=== PATIENT | male | born 1965 | race Caucasian/White ===

== ENCOUNTER 2017-04-30 15:31 | Inpatient (IN) | payer OTHER ==
[~2017-04-30] VITALS: Ht 175.3 cm; Wt 103.2 kg
[~2017-04-30 15:31] MED LIST: ATOR20TA66; AZIT250T81 PO; BUDE10.2 IH; CEPH500C PO; GEMF600T3; HYDR-3583 PO; HYDR-3812 PO; HYDR-3816 PO; HYDR-757 PO; HYDR1TAB8 OP; LIRA0.6P3 SQ; LISI-552; METF1000 PO; METO-352 PO; MULT-974 PO; ONDA8TAB13 PO; PENI500T PO; PHEN-639 PO; PNT40TEC PO; POTA99TA15 PO; PRD20T PO; PRED20TA PO; TAMS0.4C98 PO
[2017-04-30] MEDS ORDERED: NS IV 1000 ML 1,000 ML IV ONE (16:24)
[2017-04-30] MEDS ORDERED: FAMOTIDINE 20MG/2ML IV (PEPCID) IV STA (16:24)
[2017-04-30 16:25] LABS: BASOPHILS % (AUTO) 0 % (0-10); EOSINOPHILS # (AUTO) 0.2 10^3/uL (0.0-0.3); EOSINOPHILS % (AUTO) 1 % (0-10); LYMPHOCYTES # (AUTO) 2.1 X 10^3 (1.0-4.0); LYMPHOCYTES % (AUTO) 15 % (12-44); MEAN CORPUSCULAR HEMOGLOBIN 27 PG (25-34); MEAN CORPUSCULAR HGB CONC 33 G/DL (32-36); MEAN CORPUSCULAR VOLUME 81 FL (80-99); MEAN PLATELET VOLUME 10.4 FL (7.4-10.4); MONOCYTES # (AUTO) 1.1 X 10^3 (0.0-1.0); MONOCYTES % (AUTO) 8 % (0-12); NEUTROPHILS # (AUTO) 10.6 X 10^3 (1.8-7.8); NEUTROPHILS % (AUTO) 76 % (42-75); PLATELET COUNT 364 10^3/uL (130-400); RED BLOOD COUNT 5.48 10^6/uL (4.35-5.85); RED CELL DISTRIBUTION WIDTH 14.1 % (10.0-14.5); WHITE BLOOD COUNT 13.9 10^3/uL (4.3-11.0)
--- NOTE | 2017-04-30 16:26 | ED Chest Pain ---
General Chief Complaint: Chest Pain Stated Complaint: CP/SOB Nursing Triage Note: Pt c/o CP and SOA since 04/28. Pt reports he had a ekg monitor tech placed in November due to a-fib. Nursing Sepsis Screen: No Definite Risk Source: patient Exam Limitations: no limitations History of Present Illness Time seen by provider: 16:15 Initial Comments Here with report of central chest pain that radiates to the left shoulder. This is been going on for the last 48 hours in varying intensity. Worse this afternoon. Reports that he feels some nausea and has had a little diarrhea. Denies sweating or breathing problems. Timing/Duration: 1-2 days Severity/Quality: moderate, aching Location: central Radiation: shoulders Activities at Onset: none Prior CP/Workup: stress test Modifying Factors: improves with rest ASA po STREETCAR OPERATOR: No NTG SL STREETCAR OPERATOR: No Associated Symptoms: No abdominal pain, No back pain, No diaphoresis, heartburn , nausea/vomiting, No shortness of breath Allergies and Home Medications Allergies Coded Allergies: Bee Pollen (Unverified Allergy, Mild, 12/29/09) Home Medications Atorvastatin Calcium 20 Mg Tablet, #30 (Reported) Budesonide/Formoterol Fumarate 10.2 Gm Hfa.aer.ad, #10 (Reported) Cephalexin 500 Mg Capsule, 500 MG PO TID, #21 Ref 0 Prescribed by: EDNA ALVARADO on 08/18/16 1618 Gemfibrozil 600 Mg Tablet, #60 (Reported) Hydrocodone/Acetaminophen 1 Each Tablet, 1 EACH PO Q4H PRN for PAIN, #30 Ref 0 Prescribed by: EDNA ALVARADO on 08/18/16 1618 Liraglutide 0.6 Mg/0.1 Ml Pen.injctr, 1.8 MG SQ DAILY, (Reported) Lisinopril 20 Mg Tablet, #30 (Reported) Metformin HCl 1,000 Mg Tablet, #120 (Reported) Metoprolol Succinate 50 Mg Tab.er.24h, 50 MG PO DAILY, #30 Prescribed by: CLYDE MENENDEZ on 08/03/16 204 Ondansetron 8 Mg Tab.rapdis, 8 MG PO Q6H PRN for NAUSEA, #10 Ref 0 Prescribed by: EDNA ALVARADO on 08/18/16 1618 Phenazopyridine HCl 100 Mg Tablet, 100 MG PO Q8H PRN for PAIN, #14 Ref 1 Prescribed by: EDNA ALVARADO on 08/18/16 1618 Tamsulosin HCl 0.4 Mg Cap, 0.4 MG PO DAILY, #10 Ref 0 Prescribed by: EDNA ALVARADO on 08/18/16 1618 Review of Systems Constitutional: see HPI, No chills, No fever EENTM: No Symptoms Reported Respiratory: No Symptoms Reported, Denies Cough, Denies Shortness of Air Cardiovascular: Chest Pain, Denies Edema, Denies Irregular Heart Rate, Palpitations Gastrointestinal: Denies Abdominal Pain, Diarrhea, Nausea, Vomiting Genitourinary: No Symptoms Reported Musculoskeletal: no symptoms reported Skin: no symptoms reported Psychiatric/Neurological: No Symptoms Reported All Other Systems Reviewed Negative Unless Noted: Yes Past Uthdmgq-Zjhcza-Zjygqj Hx Patient Social History Alcohol Use: Denies Use Recreational Drug Use: No Smoking Status: Current Everyday Smoker Type Used: Cigarettes Recent Infectious Disease Expo: No Recent Hopitalizations: No Surgeries HX Surgeries: Yes (LEFT SHOULDER X 1, RIGHT SHOULDER X 2; RIGHT KNEE X 2; CARDIOVERSION) Surgeries: Cardiac, Orthopedic, Tonsillectomy Respiratory Hx Respiratory Disorders: No Cardiovascular Hx Cardiac Disorders: Yes Cardiac Disorders: Atrial Fibrillation, High Cholesterol, Hypertension Neurological Hx Neurological Disorders: No Reproductive System Hx Reproductive Disorders: No Genitourinary Hx Genitourinary Disorders: No Gastrointestinal Hx Gastrointestinal Disorders: No Musculoskeletal Hx Musculoskeletal Disorders: Yes ( FX HAND; SHOULDER AND KNEE SURGERIES) Musculoskeletal Disorders: Fractures Endocrine Hx Endocrine Disorders: Yes Endocrine Disorders: Diabetes, Non-Insulin dep HEENT HX ENT Disorders: No Cancer Hx Cancer: No Psychosocial Hx Psychiatric Problems: No Integumentary HX Skin/Integumentary Disorder: No Blood Transfusions Hx Blood Disorders: No Reviewed Nursing Assessment Reviewed/Agree w Nursing PMH: Yes Family Medical History Significant Family History: No Pertinent Family Hx Physical Exam Vital Signs Vital Sign - Last 12Hours 04/30/17 15:33 Temp 99.0 Pulse 105 Resp 20 B/P (MAP) 134/85 Pulse Ox 95 O2 Delivery Room Air Capillary Refill : Less Than 3 Seconds General Appearance: No Apparent Distress, WD/WN HEENT: PERRL/EOMI, Pharynx Normal Neck: Non Tender, Supple Respiratory: Lungs Clear, Normal Breath Sounds Cardiovascular: Regular Rate, Rhythm, No Murmur Gastrointestinal: Non Tender, Soft Extremity: Non Tender, No Calf Tenderness Neurologic/Psychiatric: Alert, Oriented x3 Skin: Normal Color, Warm/Dry Progress/Results/Core Measures Results/Orders Lab Results Laboratory Tests Test 04/30/17 15:40 Range/Units White Blood Count 13.9 H 4.3-11.0 10^3/uL Red Blood Count 5.48 4.35-5.85 10^6/uL Hemoglobin 14.7 13.3-17.7 G/DL Hematocrit 44 40-54 % Mean Corpuscular Volume 81 80-99 FL Mean Corpuscular Hemoglobin 27 25-34 PG Mean Corpuscular Hemoglobin Concent 33 32-36 G/DL Red Cell Distribution Width 14.1 10.0-14.5 % Platelet Count 364 130-400 10^3/uL Mean Platelet Volume 10.4 7.4-10.4 FL Neutrophils (%) (Auto) 76 H 42-75 % Lymphocytes (%) (Auto) 15 12-44 % Monocytes (%) (Auto) 8 0-12 % Eosinophils (%) (Auto) 1 0-10 % Basophils (%) (Auto) 0 0-10 % Neutrophils # (Auto) 10.6 H 1.8-7.8 X 10^3 Lymphocytes # (Auto) 2.1 1.0-4.0 X 10^3 Monocytes # (Auto) 1.1 H 0.0-1.0 X 10^3 Eosinophils # (Auto) 0.2 0.0-0.3 10^3/uL Basophils # (Auto) 0.0 0.0-0.1 10^3/uL Prothrombin Time 14.2 12.2-14.7 SEC INR Comment 1.1 0.8-1.4 Activated Partial Thromboplast Time 35 24-35 SEC D-Dimer 0.30 0.00-0.49 UG/ML Sodium Level 137 135-145 MMOL/L Potassium Level 4.3 3.6-5.0 MMOL/L Chloride Level 101 98-107 MMOL/L Carbon Dioxide Level 27 21-32 MMOL/L Anion Gap 9 5-14 MMOL/L Blood Urea Nitrogen 15 7-18 MG/DL Creatinine 0.97 0.60-1.30 MG/DL Estimat Glomerular Filtration Rate > 60 BUN/Creatinine Ratio 15 Glucose Level 225 H 70-105 MG/DL Calcium Level 9.6 8.5-10.1 MG/DL Magnesium Level 1.8 1.8-2.4 MG/DL Total Bilirubin 0.3 0.1-1.0 MG/DL Aspartate Amino Transf (AST/SGOT) 34 5-34 U/L Alanine Aminotransferase (ALT/SGPT) 24 0-55 U/L Alkaline Phosphatase 93 40-136 U/L Myoglobin 71.5 10.0-92.0 NG/ML Troponin I 2.71 *H <0.30 NG/ML Total Protein 7.6 6.4-8.2 GM/DL Albumin 4.1 3.2-4.5 GM/DL My Orders Orders - CHAPO WATTS MD Cbc With Automated Diff (04/30/17 16:17) Magnesium (04/30/17 16:17) Chest 1 View, Ap/Pa Only (04/30/17 16:17) Ekg Tracing (04/30/17 16:17) Cardiac Profile 1 (04/30/17 16:17) Comprehensive Metabolic Panel (04/30/17 16:17) Myoglobin Serum (04/30/17 16:17) Protime With Inr (04/30/17 16:17) Partial Thromboplastin Time (04/30/17 16:17) O2 (04/30/17 16:17) Monitor-Rhythm Ecg Trace Only (04/30/17 16:17) Lipid Panel (05/01/17 06:00) Aspirin Chewable Tablet (Baby Aspirin Ch (04/30/17 16:30) Saline Lock/Iv-Start (04/30/17 16:17) Famotidine Injection (Pepcid Injection) (04/30/17 16:24) Fibrin Degradation Products (04/30/17 16:24) Ns Iv 1000 Ml (Sodium Chloride 0.9%) (04/30/17 16:24) Morphine Injection (Morphine Injection (04/30/17 17:11) Clopidogrel Tablet (Plavix Tablet) (04/30/17 17:15) Heparin Drip 94651 Unit/500ml (Heparin (04/30/17 17:11) Heparin (Bolus Per Protocol) (Heparin (B (04/30/17 17:11) Rx-Nitroglycerin Sl Tabs (Rx-Nitrostat S (04/30/17 17:15) Lactic Acid Analyzer (04/30/17 17:48) Blood Culture (04/30/17 17:48) Sputum Culture (04/30/17 17:48) Piperacillin Sodium/Tazobactam (Zosyn Vi (04/30/17 18:00) Medications Given in ED Current Medications Medications Dose Ordered Sig/Juan Miguel Route Start Time Stop Time Status Last Admin Dose Admin Aspirin 324 mg ONCE ONCE PO 04/30/17 16:30 04/30/17 16:31 DC 04/30/17 16:37 324 MG Clopidogrel Bisulfate 600 mg ONCE ONCE PO 04/30/17 17:15 04/30/17 17:16 DC 04/30/17 17:18 600 MG Heparin Sodium (Porcine) HEPARIN BOLUS ACS PROTOC... 1711 ONCE IV 04/30/17 17:11 04/30/17 17:14 DC 04/30/17 17:21 5,000 UNIT Heparin Sodium/ Dextrose 500 ml @ 0 mls/hr Q0M ONCE IV 04/30/17 17:11 04/30/17 17:14 DC 04/30/17 17:23 20 MLS/HR Nitroglycerin 0.4 mg PRN PRN SL 04/30/17 17:15 04/30/17 17:47 0.4 MG Sodium Chloride 1,000 ml @ 0 mls/hr Q0M ONCE IV 04/30/17 16:24 04/30/17 16:26 DC 04/30/17 16:37 999 MLS/HR Vital Signs/I&O Vital Sign - Last 12Hours 04/30/17 04/30/17 04/30/17 15:33 15:35 16:34 Temp 99.0 Pulse 105 Resp 20 B/P (MAP) 134/85 Pulse Ox 95 95 O2 Delivery Room Air Room Air Room Air Blood Pressure Mean: 101 Progress Note : Progress Note Seen and evaluated. IV, labs, EKG and chest x-ray ordered. Normal saline 1 L bolus. Monitor patient. 1709: Troponin noted to be 2.71. I did discuss the case with Dr. Payne. He is recommending Plavix 600 mg by mouth, heparin drip and morphine nitroglycerin as needed to control pain. Recommending admission to primary team and he will consult. If patient pain can be controlled, heart catheter procedure will be performed in the near term but not emergently. Findings discussed with patient and family who agree with plan. 1740: Discussed case with Dr. Abdul who accepts patient for admission inpatient status. Patient and family agree with plan. Chest x-ray does show question of infiltrate in left base. Patient did have temperature of 99.0 and elevation of white count at 13.9. We will initiate protocol. Blood cultures and lactic acid ordered. Zosyn 4.5 g IV ordered afterwards. Dr. Abdul notified and agrees. Admit, inpatient status. ECG Initial ECG Impression Date: Apr 30, 2017 Initial ECG Impression Time: 15:43 Initial ECG Rate: 102 Initial ECG Rhythm: S.Tach Comment Sinus tachycardia with rate of 102. No evidence of ST elevation ME. Normal axis. Similar to previous of 08/03/16. Interpreted by me. Diagnostic Imaging Diagonstic Imaging: Xray Plain Films/CT/US/NM/MRI: chest Comments VIA [facility]. [place], [place] NAME: SAMINA RIOS [facility] REC#: [id number] PT STATUS: REG ER : 1965 PHYSICIAN: CHAPO WATTS MD ADMIT DATE: 04/30/17/ER Draft Date of Exam:04/30/17 CHEST 1 VIEW, AP/PA ONLY INDICATION: Left-sided chest pain. COMPARISON: 08/03/2016. FINDINGS: Loop recorder overlies the left hemithorax. Enlargement of the cardiac silhouette has developed. Some infiltrate and nonspecific parenchymal disease in the left lung base adjacent to the left ventricular apex. This may be a focus of pneumonia. Pulmonary vascularity not grossly enlarged. There is no apparent pleural fluid. IMPRESSION: Mild increased heart size. Left pericardiac basilar infiltrate is a new finding and suspicious for small focus of pneumonia. Consider PA and lateral follow-up in one to two weeks. No other change. Dictated on workstation # [id number] Dict: 04/30/17 1701 Trans: 04/30/17 1712 [id number] Interpreted by: HENRIK BADILLO Electronically signed by: Departure Communication Time/Spoke to Admitting Phy: 17:40 Time/Spoke to Consulting Physi: 17:09 Impression Impression: Primary Impression: Non-ST elevation ME (NSTEMI) Additional Impression: Pneumonia involving left lung Qualified Codes: J18.1 - Lobar pneumonia, unspecified organism Disposition: ADMITTED INPATIENT Condition: Stable Decision to Admit Reason: Admit from ER (General) Decision to Admit/Date: Apr 30, 2017 Time/Decision to Admit Time: 17:09 Departure-Patient Inst. Referrals: DUNIA SANTOS MD (PCP/Family) Primary Care Physician CHAPO WATTS MD Apr 30, 2017 16:26
[2017-04-30 16:28] LABS: INR 1.1 (0.8-1.4); PROTHROMBIN TIME PATIENT 14.2 SEC (12.2-14.7)
[2017-04-30] MEDS ORDERED: ASPIRIN 81 MG CHEW (CHILDREN'S ASA) PO ONE (16:30)
[2017-04-30 16:37] LABS: ALANINE AMINOTRANSFERASE 24 U/L (0-55); ALBUMIN 4.1 GM/DL (3.2-4.5); ANION GAP 9 MMOL/L (5-14); ASPARTATE AMINO TRANSFERASE 34 U/L (5-34); BILIRUBIN,TOTAL 0.3 MG/DL (0.1-1.0); BLOOD UREA NITROGEN 15 MG/DL (7-18); BUN/CREATININE RATIO 15; CALCIUM 9.6 MG/DL (8.5-10.1); CARBON DIOXIDE 27 MMOL/L (21-32); CHLORIDE 101 MMOL/L (98-107); CREATININE SERUM 0.97 MG/DL (0.60-1.30); GFR ESTIMATED > 60; GLUCOSE 225 MG/DL (70-105); MAGNESIUM 1.8 MG/DL (1.8-2.4); POTASSIUM 4.3 MMOL/L (3.6-5.0); SODIUM 137 MMOL/L (135-145); TOTAL PROTEIN 7.6 GM/DL (6.4-8.2)
[2017-04-30 16:43] LABS: MYOGLOBIN SERUM 71.5 NG/ML (10.0-92.0)
[2017-04-30] MEDS ORDERED: HEParin DRIP 25000 UNIT/500ML 500 ML IV ONE (17:11)
[2017-04-30] MEDS ORDERED: morphine INJ 10 MG/ML 1ML (SYR OR VIAL) IVP STA (17:11)
[2017-04-30] MEDS ORDERED: HEParin 1000 UNIT/ML (10ML VIAL) FOR BOLUS IV ONE (17:11)
--- NOTE | 2017-04-30 17:13 | Diagnostic Imaging Report ---
INDICATION: Left-sided chest pain. COMPARISON: 08/03/2016. FINDINGS: Loop recorder overlies the left hemithorax. Enlargement of the cardiac silhouette has developed. Some infiltrate and nonspecific parenchymal disease in the left lung base adjacent to the left ventricular apex. This may be a focus of pneumonia. Pulmonary vascularity not grossly enlarged. There is no apparent pleural fluid. IMPRESSION: Mild increased heart size. Left pericardiac basilar infiltrate is a new finding and suspicious for small focus of pneumonia. Consider PA and lateral follow-up in one to two weeks. No other change. Dictated by: Dictated on workstation # [id number]
[2017-04-30] MEDS ORDERED: CLOPIDOGREL 300 MG (PLAVIX) TABLET PO ONE (17:15)
[2017-04-30] MEDS: RX-NITROGLYCERIN 0.4 MG TAB BTL 25'S SL PRN ×2 (17:35→17:47)
[2017-04-30] MEDS ORDERED: PIPERACILLIN/TAZO 4.5 GM VIAL (ZOSYN) IV ONE (18:00)
[2017-04-30] MEDS ORDERED: NS (IVPB) 100 ML ONE (18:22)
[2017-04-30] MEDS ORDERED: morphine INJ 10 MG/ML 1ML (SYR OR VIAL) IVP ONE (18:30)
[2017-04-30 19:00] VITALS: BP 114/75
[2017-04-30] MEDS ORDERED: CATHETER FLUSH 10 ML SYR IV PRN (19:15)
[2017-04-30] MEDS ORDERED: NITROGLYCERIN SUBLINGUAL 0.4 MG TAB (NITROSTAT) SL PRN (19:15)
[2017-04-30] MEDS ORDERED: morphine INJ 4 MG/ML 1 ML (VIAL/SYRINGE) IV PRN (19:15)
[2017-04-30] MEDS: NS IV 1000 ML 1,000 ML IV SCH ×3 (19:35→22:45)
[2017-04-30 20:00] VITALS: BP 128/84
[2017-04-30] MEDS ORDERED: HEParin (CATH LAB) 2,000 ML IV ONE (20:16)
[2017-04-30] MEDS ORDERED: MIDAZOLAM 5 MG/5 ML (VERSED) VIAL ONE (20:24)
[2017-04-30] MEDS ORDERED: fentaNYL INJECTION 100 MCG/2 ML AMP ONE ×2 (20:25→22:16)
[2017-04-30] MEDS ORDERED: diphenhydrAMINE 50 MG/ML INJ (BENADRYL) ONE (20:25)
[2017-04-30] MEDS ORDERED: NS IV 1000 ML 1,000 ML ONE (20:39)
--- NOTE | 2017-04-30 20:50 | Consultation-Cardiology ---
HPI-Cardiology Cardiology Consultation: Date of Consultation 04/30/17 Date of Admission Attending Physician Kira Abdul DO Admitting Physician Sissy Kingsley MD Consulting Physician Priscilla PAYNE MD HPI: Time Seen by Provider: 20:30 Chief Complaint: chest pain this is a 51-year-old gentleman with history of diabetes and active smoking. He also has significant family history of premature coronary artery disease. He presents with chest pain which was worse on Sunday but continues to today. Chest pain is substernal which she describes at sharp and dull with radiation to the left arm. Initial intensity 5-6/10. we gave him nitroglycerin and morphine in the ER with no relief. He was given bolus of aspirin, heparin, Plavix however still no relief. Initial cardiac enzymes were significantly elevated. He also complains of mild shortness of breath. Review of Systems-Cardiology Review of Systems Constitutional: No As described under HPI, No no symptoms reported, No chills, No fever, No lightheadedness, No malaise, No tiredness, No weight loss, No weight gain, No other Eyes: No As described under HPI, No no symptoms reported, No blindness, No blurred vision, No contact lenses, No drainage, No decreased acuity, No foreign body sensation, No glasses, No inflammation, No pain, No photophobia, No previous injury, No shadows, No tunnel vision, No other, No vision change Respiratory: shortness of breath Cardiovascular: chest pain Gastrointestinal: No no symptoms reported, No As described under HPI, No abdomen distended, No abdominal pain, No blood streaked bowels, No constipation , No diarrhea, No difficulty swallowing, No nausea, No poor appetite, No poor fluid intake, No rectal bleeding, No vomiting, No other, No nausea/vomiting/ diarrhea, No stool coloration changes Genitourinary: No no symptoms reported, No As described under HPI, No burning, No dysuria, No discharge, No frequency, No flank pain, No hematuria, No incontinence, No pain, No urgency, No other, No urine frequency changes, No urine coloration changes Musculoskeletal: No no symptoms reported, No As describe under HPI, No back pain, No gout, No joint pain, No joint swelling, No muscle pain, No muscle stiffness, No neck pain, No other Skin: No no symptoms reported, No As described under HPI, No change in color, No change in hair/nails, No dryness, No lesions, No lumps, No rash, No other, No skin related problems, No ulcerations, No rash on exposed areas, No ulcerations on exposed areas Hematologic: No no symptoms reported, No As described under HPI, No anemia, No blood clots, No easy bleeding, No easy bruising, No swollen glands, No other, No bleeding abnormalities All Other Systems Reviewed Negative Unless Noted: Yes MJI-Vsbcow-Kehejv Hx Patient Social History Alcohol Use: Denies Use Recreational Drug Use: No Smoking Status: Current Everyday Smoker Type Used: Cigarettes Recent Infectious Disease Expo: No Past Medical History PMH As described under Assessment. Allergies and Home Medications Allergies Coded Allergies: bee pollen (Unverified Allergy, Mild, 12/29/09) Home Medications Atorvastatin Calcium 20 Mg Tablet, #30 (Reported) Budesonide/Formoterol Fumarate 10.2 Gm Hfa.aer.ad, #10 (Reported) Cephalexin 500 Mg Capsule, 500 MG PO TID, #21 Ref 0 Prescribed by: EDNA ALVARADO on 08/18/16 1618 Gemfibrozil 600 Mg Tablet, #60 (Reported) Hydrocodone/Acetaminophen 1 Each Tablet, 1 EACH PO Q4H PRN for PAIN, #30 Ref 0 Prescribed by: EDNA ALVARADO on 08/18/16 1618 Liraglutide 0.6 Mg/0.1 Ml Pen.injctr, 1.8 MG SQ DAILY, (Reported) Lisinopril 20 Mg Tablet, #30 (Reported) Metformin HCl 1,000 Mg Tablet, #120 (Reported) Metoprolol Succinate 50 Mg Tab.er.24h, 50 MG PO DAILY, #30 Prescribed by: CLYDE MENENDEZ on 08/03/16 2049 Ondansetron 8 Mg Tab.rapdis, 8 MG PO Q6H PRN for NAUSEA, #10 Ref 0 Prescribed by: EDNA ALVAARDO on 08/18/16 161 Phenazopyridine HCl 100 Mg Tablet, 100 MG PO Q8H PRN for PAIN, #14 Ref 1 Prescribed by: EDNA ALVARADO on 08/18/16 161 Tamsulosin HCl 0.4 Mg Cap, 0.4 MG PO DAILY, #10 Ref 0 Prescribed by: EDNA ALVARADO on 08/18/168 Physical Exam-Cardiology Physical Exam Vital Signs/I&O Vital Sign - Last 12Hours 04/30/17 04/30/17 04/30/17 04/30/17 15:33 15:35 16:34 19:00 Temp 99.0 Pulse 105 92 Resp 20 B/P (MAP) 134/85 Pulse Ox 95 95 O2 Delivery Room Air Room Air Room Air Capillary Refill : Less Than 3 Seconds Constitutional: No appears stated age, No AAO x 3, No apparent distress, No PERRL, No well-developed, No well-nourished, No other HEENT: No PERRL, No normal ENT inspection, No TMs normal, No pharynx normal, No scleral icterus (R), No scleral icterus (L), No pale conjunctivae (R), No pale conjunctivae (L), No photophobia, No TM abnormal (R), No TM abnormal (L), No pharyngeal erythema, No tonsillar exudate, No other, No discharge, No EOMI, No hearing is well preserved, No hard of hearing, No oral hygience is good, No ulceration, No xanthelasmas are seen Neck: No non-tender, No full range of motion, No supple, No normal inspection, No carotid bruit, No limited range of motion, No lymphadenopathy (R), No lymphadenopathy (L), No tender lateral, No tender midline, No thyromegaly, No other, No carotid pulses are 2 + bilaterally, No with good upstrokes Respiratory: No accessory muscle use, No respiratory distress, No chest tender , No chest expansion is symmetric, No chest is bilaterally symmetric, No lungs clear to percussion, No lungs clear to auscultation, No crackles, No rhonchi, No rales, No stridor, No wheezing, No pleural rub, No other Cardiovascular: regular rate-rhythm, No irregularly irregular, No extra beats, No parasternal heave is noted, No JVD, No edema, No bradycardia, tachycardia, No point of maximal impulse, No cardiac thrills are palpable, S1 and S2, No gallop/S3, No gallop/S4, No diastolic murmur, No systolic murmur, No friction rub, No click, No other Gastrointestinal: No tender, No soft, No round, No distended, No pulsatile mass , No organomegaly, No guarding, No rebound, No tenderness, No hernia, No mass, No audible bowel sounds, No abnormal bowel sounds, No abdominal bruits, No spleenomegaly, No other Rectal: deferred Extremities: No normal range of motion, No non-tender, No normal inspection, No pedal edema, No calf tenderness, No normal capillary refill, No pelvis stable , No calf tenderness, No inflammation, No pedal edema, No slow capillary refill , No swelling, No other, No abrasion, No clubbing, No cyanosis, No ecchymosis, No laceration, No no lower extremity edema bilateral, No significant edema, No tenderness, No wound Neurologic/Psychiatric: No in home sales consultant II-XII nml as tested, No no motor/sensory deficits, No alert, No normal mood/affect, No oriented x 3, No abnormal cerebellar tests, No abnormal in home sales consultant II-XII, No abnormal gait, No aphasia, No EOM palsy, No facial droop, No motor weakness, No sensory deficit, No depressed affect, No disoriented x 3, No other, No grossly intact, No power is 5/5 both on sides Skin: No normal color, No warm/dry, No cyanosis, No cool, No diaphoresis, No damp, No ecchymosis, No jaundice, No mottled, No pallor, No rash, No tattoos/ piercings, No ulcerations, No rash on exposed areas, No ulcerations on exposed areas, No other Data Review Labs Laboratory Tests 04/30/17 15:40: White Blood Count 13.9H, Red Blood Count 5.48, Hemoglobin 14.7, Hematocrit 44, Mean Corpuscular Volume 81, Mean Corpuscular Hemoglobin 27, Mean Corpuscular Hemoglobin Concent 33, Red Cell Distribution Width 14.1, Platelet Count 364, Mean Platelet Volume 10.4, Neutrophils (%) (Auto) 76H, Lymphocytes (%) (Auto) 15 , Monocytes (%) (Auto) 8, Eosinophils (%) (Auto) 1, Basophils (%) (Auto) 0, Neutrophils # (Auto) 10.6H, Lymphocytes # (Auto) 2.1, Monocytes # (Auto) 1.1H, Eosinophils # (Auto) 0.2, Basophils # (Auto) 0.0, Prothrombin Time 14.2, INR Comment 1.1, Activated Partial Thromboplast Time 35, D-Dimer 0.30, Sodium Level 137, Potassium Level 4.3, Chloride Level 101, Carbon Dioxide Level 27, Anion Gap 9, Blood Urea Nitrogen 15, Creatinine 0.97, Estimat Glomerular Filtration Rate > 60, BUN/Creatinine Ratio 15, Glucose Level 225H, Calcium Level 9.6, Magnesium Level 1.8, Total Bilirubin 0.3, Aspartate Amino Transf (AST/SGOT) 34, Alanine Aminotransferase (ALT/SGPT) 24, Alkaline Phosphatase 93, Myoglobin 71.5 , Troponin I 2.71*H, Total Protein 7.6, Albumin 4.1 04/30/17 18:21: Lactic Acid Level 0.95 ECG Impression ECG Initial ECG Rhythm: S.Tach A/P-Cardiology Assessment/Admission Diagnosis non-STEMI, diabetes, possible pneumonia, active smoking Plan non-STEMI refractory to medical therapy. Urgent coronary angiography is recommended. Bolus aspirin, bolus Plavix, IV heparin. Patient will be started on beta ramirez, Ha, statin. Admit to ICU. Thank you for your consultation. Please call me if you have any questions. Nahun Payne MD, FACP, FACC, FSCAI, FHRS, CCDS Interventional Cardiology Cardiac Electrophysiology Vascular Medicine and Endovascular Interventions Clinical Quality Measures AMI/AHF: ASA po Prior to arrival: Priscilla Chauhan MD Apr 30, 2017 8:50 pm
--- NOTE | 2017-04-30 20:50 | Cardiac Procedure Note-CS/ASA ---
Pre-Procedure Note Pre-Op Procedure Note H&P Reviewed The H&P was reviewed, patient examined and no changes noted. Date H&P Reviewed: Apr 30, 2017 Time H&P Reviewed: 20:50 Conscious Sedation Pre-Proced Time Reviewed: 20:50 ASA Class: 3 Airway Mallampati Classification: ([place] appropriate class) I. II. III, IV Lungs Heart ASA score ASA 1: a normal healthy patient ASA 2: a patient with a mild systemic disease (mid diabetes, controlled hypertension, obesity ASA 3: a patient with a severe systemic disease that limits activity (angina , COPD, prior Myocardial infarction) ASA 4: a patient with an incapacitating disease that is a constant threat to life (CHF, renal failure) ASA 5: a moribund patient not expected to survive 24 hrs. (ruptured aneurysm) ASA 6: a declared brain patient whose organs are being harvested. For emergent operations, add the letter E after the classification Grade 1 Sedation Plan: Analgesia, Amnesia, Plan communicated to team members, Discussed options with patient/fam, Discussed risks with patient/fam Note The patient is an appropriate candidate to undergo the planned procedure, sedation, and anesthesia. The patient immediately re-assessed prior to indication. Priscilla WAGGONER MD Apr 30, 2017 8:50 pm
[2017-04-30] MEDS ORDERED: HEParin 1000 UNIT/ML (10ML VIAL) FOR BOLUS ONE (21:03)
[2017-04-30] MEDS ORDERED: ADENOSINE 3 MG/1 ML (ADENOSCAN) 30ML VIAL IV ONE (21:04)
[2017-04-30] MEDS ORDERED: NS (IVPB) 250 ML ONE (21:52)
[2017-04-30] MEDS ORDERED: niCARdipine 25 MG/10 ML (CARDENE) AMP IV ONE (21:52)
[2017-04-30] MEDS ORDERED: EPTIFIBATIDE BOLUS 20 ML IV ONE (22:02)
[2017-04-30] MEDS ORDERED: EPTIFIBATIDE DRIP 100 ML IV ONE (22:24)
--- NOTE | 2017-04-30 22:39 | Cardiology Post Procedure Note ---
Post-Procedure Note Physician (s)/Med Peds (s) Physician Priscilla WAGGONER MD Pre-Procedure Diagnosis Pre-Procedure Diagnosis: nstemi Post-Procedure Note Procedure Start Date: Apr 30, 2017 Procedure Start Time: 08:45 Name of Procedure: Coronary angiography, LHC, PCI to distal RCA with NAYANA Findings/Procedure Note Moderate Left main disease - FFR negative. Severe LCX disease. Total distal RCA occlusion with high clot burden. PCI with NAYANA to distal RCA. Anesthesia Type: Conscious Sedation Estimated blood loss (mL): 30 Contrast Amount: 285 Post-Procedure Diagnosis Post-operative diagnosis: NSTEMI, PCI to distal RCA with NAYANA Priscilla WAGGONER MD Apr 30, 2017 10:39 pm
[2017-04-30] MEDS ORDERED: PATIENT MAY USE OWN MEDS, ALL PO SCH (22:45)
[2017-04-30 23:00] VITALS: BP 107/63
[2017-05-01] VITALS (20 sets, daily range): BP systolic 91–131; BP diastolic 54–76
[2017-05-01] MEDS: inSUlin (REGULAR) HUMAN 1 UNIT/0.01 ML (CHARGE PER UNIT) SC SCH ×5 (00:13→21:00)
[2017-05-01] MEDS ORDERED: meTOprolol TARTRATE 25 MG (LOPRESSOR) TABLET ONE ×2 (00:27→00:36)
[2017-05-01] MEDS: ATORVASTATIN 80 MG (LIPITOR) TABLET PO SCH ×2 (00:35→21:19)
[2017-05-01] MEDS: PIPERACILLIN/TAZOBACTAM 4.5 GM/NS 100 ML IVPB IV SCH ×6 (00:35→16:07)
[2017-05-01] MEDS: meTOprolol TARTRATE 50 MG (LOPRESSOR) TAB PO SCH ×3 (00:46→21:20)
[2017-05-01] MEDS ORDERED: fentaNYL INJECTION 100 MCG/2 ML AMP IV PRN (01:15)
[2017-05-01 02:10] LABS: BASOPHILS % (AUTO) 0 % (0-10); EOSINOPHILS # (AUTO) 0.2 10^3/uL (0.0-0.3); EOSINOPHILS % (AUTO) 2 % (0-10); LYMPHOCYTES # (AUTO) 2.6 X 10^3 (1.0-4.0); LYMPHOCYTES % (AUTO) 24 % (12-44); MEAN CORPUSCULAR HEMOGLOBIN 26 PG (25-34); MEAN CORPUSCULAR HGB CONC 32 G/DL (32-36); MEAN CORPUSCULAR VOLUME 81 FL (80-99); MEAN PLATELET VOLUME 9.9 FL (7.4-10.4); MONOCYTES % (AUTO) 10 % (0-12); NEUTROPHILS # (AUTO) 6.8 X 10^3 (1.8-7.8); NEUTROPHILS % (AUTO) 64 % (42-75); PLATELET COUNT 326 10^3/uL (130-400); RED BLOOD COUNT 4.94 10^6/uL (4.35-5.85); RED CELL DISTRIBUTION WIDTH 14.1 % (10.0-14.5); WHITE BLOOD COUNT 10.7 10^3/uL (4.3-11.0)
[2017-05-01] MEDS ORDERED: ATROPINE INJECTION 1 MG/10 ML SYR (ABBOTT) ONE (02:25)
[2017-05-01 02:29] LABS: ALANINE AMINOTRANSFERASE 24 U/L (0-55); ALBUMIN 3.7 GM/DL (3.2-4.5); ANION GAP 15 MMOL/L (5-14); ASPARTATE AMINO TRANSFERASE 39 U/L (5-34); BILIRUBIN,TOTAL 0.5 MG/DL (0.1-1.0); BLOOD UREA NITROGEN 12 MG/DL (7-18); BUN/CREATININE RATIO 12; CALCIUM 8.5 MG/DL (8.5-10.1); CARBON DIOXIDE 19 MMOL/L (21-32); CHLORIDE 104 MMOL/L (98-107); GFR ESTIMATED > 60; GLUCOSE 126 MG/DL (70-105); MAGNESIUM 1.7 MG/DL (1.8-2.4); PHOSPHORUS 3.6 MG/DL (2.3-4.7); SODIUM 138 MMOL/L (135-145); TOTAL PROTEIN 6.8 GM/DL (6.4-8.2)
[2017-05-01 02:30] LABS: CHOLESTEROL 124 MG/DL (< 200); DIRECT LDL 75 MG/DL (1-129); TRIGLYCERIDES 230 MG/DL (<150); VLDL CHOLESTEROL 46 MG/DL (5-40)
[2017-05-01 02:38] LABS: TROPONIN I 12.91 NG/ML (<0.30)
[2017-05-01] MEDS: POTASSIUM CL 10MEQ/50ML IVPB 50 ML IV SCH (03:20)
[2017-05-01] MEDS: MAGNESIUM 1 GM/100 ML IVPB 100 ML IV SCH ×3 (03:20→06:38)
[2017-05-01] MEDS: KCL 20 MEQ TAB (K-DUR) PO SCH (03:21)
[2017-05-01] MEDS ORDERED: EPTIFIBATIDE DRIP 100 ML IV ONE (04:07)
[2017-05-01] MEDS: EPTIFIBATIDE DRIP 100 ML IV SCH ×4 (04:19→22:30)
--- NOTE | 2017-05-01 07:28 | Pulmonary Consultation ---
History of Present Illness History of Present Illness Date of Consultation 05/01/17 07:22 Time Seen by Provider: 07:22 Date of Admission History of Present Illness 51yo with hx of COPD, tobacco use, and DM presented secondary to CP and was taken to cardiovascular lab director with stent placement and found to have 100% RCA blockage. He is going back to cardiovascular lab director today to reevaluate circumflex. pt had to be resuscitated 20yrs ago details unknown.. Pt denies SOB, productive cough, fever , night sweats. Allergies and Home Medications Allergies Coded Allergies: bee pollen (Unverified Allergy, Mild, 12/29/09) Home Medications Atorvastatin Calcium 20 Mg Tablet, #30 (Reported) Budesonide/Formoterol Fumarate 10.2 Gm Hfa.aer.ad, #10 (Reported) Cephalexin 500 Mg Capsule, 500 MG PO TID, #21 Ref 0 Prescribed by: EDNA ALVARADO on 08/18/16 1618 Gemfibrozil 600 Mg Tablet, #60 (Reported) Hydrocodone/Acetaminophen 1 Each Tablet, 1 EACH PO Q4H PRN for PAIN, #30 Ref 0 Prescribed by: EDNA ALVARADO on 08/18/16 1618 Liraglutide 0.6 Mg/0.1 Ml Pen.injctr, 1.8 MG SQ DAILY, (Reported) Lisinopril 20 Mg Tablet, #30 (Reported) Metformin HCl 1,000 Mg Tablet, #120 (Reported) Metoprolol Succinate 50 Mg Tab.er.24h, 50 MG PO DAILY, #30 Prescribed by: CLYDE MENENDEZ on 08/03/16 204 Ondansetron 8 Mg Tab.rapdis, 8 MG PO Q6H PRN for NAUSEA, #10 Ref 0 Prescribed by: EDNA ALVARADO on 08/18/16 1618 Phenazopyridine HCl 100 Mg Tablet, 100 MG PO Q8H PRN for PAIN, #14 Ref 1 Prescribed by: EDNA ALVARADO on 08/18/16 1618 Tamsulosin HCl 0.4 Mg Cap, 0.4 MG PO DAILY, #10 Ref 0 Prescribed by: EDNA ALVARADO on 08/18/16 1618 Past Ngbqgqd-Agxcpc-Oqeevg Hx Patient Social History Alcohol Use: Denies Use Recreational Drug Use: No Smoking Status: Current Everyday Smoker Type Used: Cigarettes Recent Foreign Travel: No Contact w/Someone Who Travel: No Recent Infectious Disease Expo: No Recent Hopitalizations: No Physical Abuse Screen: No Sexual Abuse: No Seasonal Allergies Seasonal Allergies: No Surgeries HX Surgeries: Yes (LEFT SHOULDER X 1, RIGHT SHOULDER X 2; RIGHT KNEE X 2; CARDIOVERSION) Surgeries: Cardiac, Orthopedic, Tonsillectomy Respiratory Hx Respiratory Disorders: No Cardiovascular Hx Cardiac Disorders: Yes Cardiac Disorders: Atrial Fibrillation, High Cholesterol, Hypertension Neurological Hx Neurological Disorders: No Reproductive System Hx Reproductive Disorders: No Genitourinary Hx Genitourinary Disorders: No Gastrointestinal Hx Gastrointestinal Disorders: No Musculoskeletal Hx Musculoskeletal Disorders: Yes ( FX HAND; SHOULDER AND KNEE SURGERIES) Musculoskeletal Disorders: Fractures Endocrine Hx Endocrine Disorders: Yes Endocrine Disorders: Diabetes, Non-Insulin dep HEENT HX ENT Disorders: No Cancer Hx Cancer: No Psychosocial Hx Psychiatric Problems: No Integumentary HX Skin/Integumentary Disorder: No Blood Transfusions Hx Blood Disorders: No Reviewed Nursing Assessment Reviewed/Agree w Nursing PMH: Yes Family Medical History Significant Family History: No Pertinent Family Hx Review of Systems Time Seen by Provider: 07:26 Constitutional: No: Chills, Fever, Malaise, Other, Sweats, Weakness Respiratory: Cough, Dry, SOB with excertion, Shortness of breath, No: Hemoptysis, Other, Pleuritic Pain, Sputum, Wheezing, Wheezing Cardiovascular: Chest Pain, Paroxysmal Noc. Dyspnea Gastrointestinal: No: Abdominal Pain, Constipation, Diarrhea, Hematochezia, Melena, Nausea, Other, Vomiting Neurological: Weakness Exam Exam Vital Signs Date Time Temp Pulse Resp B/P (MAP) Pulse Ox O2 Delivery O2 Flow Rate FiO2 05/01/17 06:00 85 25 108/60 95 Room Air 05/01/17 05:00 81 12 113/65 95 Room Air 05/01/17 04:00 78 12 112/68 96 Room Air 05/01/17 04:00 98.4 Room Air 05/01/17 04:00 98 Room Air 05/01/17 02:00 79 16 91/61 96 Room Air 05/01/17 01:00 84 8 108/65 98 Room Air 05/01/17 01:00 85 05/01/17 00:00 97.6 Room Air 05/01/17 00:00 98 Room Air 05/01/17 00:00 75 10 99/54 97 Room Air 04/30/17 23:00 79 5 107/63 98 Room Air 04/30/17 20:56 98 Room Air 04/30/17 20:00 86 10 128/84 98 Room Air 04/30/17 19:45 99.0 94 12 107/69 04/30/17 19:00 92 04/30/17 19:00 97.3 89 20 114/75 98 Room Air 04/30/17 18:45 94 12 95 04/30/17 16:34 95 Room Air 04/30/17 15:35 Room Air 04/30/17 15:33 99.0 105 20 134/85 95 Room Air I & O 05/01/17 07:00 Intake Total 1750 ml Output Total 1250 ml Balance 500 ml General Appearance: No Apparent Distress, WD/WN HEENT: PERRL/EOMI, Pharynx Normal Neck: Non Tender, Supple Respiratory: Lungs Clear, Normal Breath Sounds Cardiovascular: Regular Rate, Rhythm, No Murmur Capillary Refill: Less Than 3 Seconds Extremity: Non Tender, No Calf Tenderness Neurologic/Psychiatric: Alert, Oriented x3 Skin: Normal Color, Warm/Dry Results Lab Laboratory Tests 04/30/17 15:40 05/01/17 02:03 Assessment/Plan Assessment/Plan NSTEMI s/p cath -Cardiology following - Tobacco use -education Mild CAP -Continue zosyn for now -Will treat x 5 days total 254 Clinical Quality Measures AMI/AHF: ASA po Prior to arrival: No DVT/VTE Risk/Contraindication: Risk Factor Score Per Nursin RFS Level Per Nursing on Admit: 3=High JAREK MAYA DO May 01, 2017 07:28
[2017-05-01] MEDS: NS IV 1000 ML 1,000 ML IV SCH ×4 (08:39→22:05)
[2017-05-01] MEDS ORDERED: ASPIRIN E.C. 325 MG (ECOTRIN) TABLET PO SCH (09:00)
[2017-05-01] MEDS ORDERED: APIX5TAB PO (09:02)
[2017-05-01] MEDS ORDERED: GLIP10TA13 PO (09:02)
[2017-05-01] MEDS: CLOPIDOGREL 75 MG (PLAVIX) TABLET PO SCH (09:04)
[2017-05-01] MEDS: ASPIRIN E.C. 81 MG (ECOTRIN) TAB PO SCH (09:05)
[2017-05-01] MEDS ORDERED: CHOL500050 PO (09:25)
--- NOTE | 2017-05-01 10:45 | History & Physical-Hospitalist ---
HPI History of Present Illness: HPI/Chief Complaint CC: NSTEMI w/pneumonia HPI: This is a 51-year-old white male that used to smoke 3 packs a day now down to one half pack per day to presents to the emergency room with chest pain diagnosed with non-ST elevation NJ and will have cardiac catheterization with intervention today by cardiology. He was found to have infiltrate on chest x- ray so pneumonia protocol was followed. At this current time patient denies any significant shortness of breath or chest pain and ready for procedure around noon today. Smoking cessation was counseled. Source: patient Exam Limitations: no limitations Date Seen 05/01/17 Time Seen by Provider: 09:30 Attending Physician Kira Abdul Bethany N MD Referring Physician Date of Admission Apr 30, 2017 at 17:47 Home Medications & Allergies Home Medications Reviewed patient Home Medication Reconciliation Form Allergies Allergies Coded Allergies bee pollen (Unverified Allergy, Mild, 12/29/09) Past Cdnfzjf-Vrbcwe-Ciexsp Hx Patient Social History Marrital Status: Employed/Student: unemployed Alcohol Use: Denies Use Recreational Drug Use: No Smoking Status: Current Everyday Smoker Type Used: Cigarettes Physical Abuse Screen: No Sexual Abuse: No Recent Foreign Travel: No Contact w/other who traveled: No Recent Hopitalizations: No Recent Infectious Disease Expo: No Seasonal Allergies Seasonal Allergies: No Surgeries HX Surgeries: Yes (LEFT SHOULDER X 1, RIGHT SHOULDER X 2; RIGHT KNEE X 2; CARDIOVERSION) Surgeries: Cardiac, Orthopedic, Tonsillectomy Respiratory Hx Respiratory Disorders: No Cardiovascular Hx Cardiovascular Disorders: Yes Cardiac Disorders: Atrial Fibrillation, High Cholesterol, Hypertension Neurological Hx Neurological Disorders: No Reproductive System Hx Reproductive Disorders: No Genitourinary Hx Genitourinary Disorders: No Gastrointestinal Hx Gastrointestinal Disorders: No Musculoskeletal Hx Musculoskeletal Disorders: Yes ( FX HAND; SHOULDER AND KNEE SURGERIES) Musculoskeletal Disorders: Fractures Endocrine Hx Endocrine Disorders: Yes Endocrine Disorders: Diabetes, Non-Insulin dep HEENT HX ENT Disorders: No Cancer Hx Cancer: No Psychosocial Hx Psychiatric Problems: No Integumentary HX Skin/Integumentary Disorder: No Blood Transfusions Hx Blood Disorders: No Reviewed Nursing Assessment Reviewed/Agree w Nursing PMH: Yes Family Medical History Significant Family History: No Pertinent Family Hx Review of Systems Constitutional: see HPI EENTM: no symptoms reported Respiratory: no symptoms reported Cardiovascular: chest pain Gastrointestinal: no symptoms reported Genitourinary: no symptoms reported Musculoskeletal: no symptoms reported Skin: no symptoms reported Psychiatric/Neurological: No Symptoms Reported All Other Systems Reviewed Negative Unless Noted: Yes Physical Exam Physical Exam Vital Signs Vital Sign - Last 12Hours 04/30/17 15:33 Temp 99.0 Pulse 105 Resp 20 B/P (MAP) 134/85 Pulse Ox 95 O2 Delivery Room Air Capillary Refill : Less Than 3 Seconds General Appearance: No Apparent Distress, WD/WN, Chronically ill, Obese Eyes: Bilateral Eye Normal Inspection, Bilateral Eye PERRL HEENT: PERRL/EOMI, Normal ENT Inspection, Pharynx Normal Neck: Full Range of Motion, Normal Inspection, Non Tender, Supple, Carotid Bruit Respiratory: Chest Non Tender, Lungs Clear, Normal Breath Sounds, No Accessory Muscle Use, No Respiratory Distress Cardiovascular: Regular Rate, Rhythm, No Edema, No Gallop, No JVD, No Murmur, Normal Peripheral Pulses Gastrointestinal: Normal Bowel Sounds, No Organomegaly, No Pulsatile Mass, Non Tender, Soft Back: Normal Inspection, No CVA Tenderness, No Vertebral Tenderness Extremity: Normal Capillary Refill, Normal Inspection, Normal Range of Motion, Non Tender, No Calf Tenderness, No Pedal Edema Neurologic/Psychiatric: Alert, Oriented x3, No Motor/Sensory Deficits, Normal Mood/Affect Skin: Normal Color, Warm/Dry Lymphatic: No Adenopathy Results Results/Procedures Lab Laboratory Tests 04/30/17 15:40 05/01/17 02:03 Assessment/Plan Admission Diagnosis Assessment: Chest pain with non-ST elevation undergoing cardiac catheterization with intervention today Current smoker Hypertension Hyperlipidemia Obesity GERD Elevated triglycerides Assessment and Plan Plan: Cardiac catheterization today with intervention Smoking cessation Heparin drip Pain control Nebulizers Antibiotic Clinical Quality Measures AMI/AHF: ASA po Prior to arrival: No DVT/VTE Risk/Contraindication: Risk Factor Score Per Nursin RFS Level Per Nursing on Admit: 3=High KIRA ABDUL DO May 01, 2017 10:45
--- NOTE | 2017-05-01 11:32 | Diagnostic Imaging Report ---
INDICATION: Chest pain. Comparison made with prior examination from 04/30/17. FINDINGS: The heart size, mediastinal configuration, and pulmonary vascularity are within normal limits. There is no pleural effusion, pneumothorax, or pneumonia. The osseous structures are unremarkable. IMPRESSION: No acute cardiopulmonary abnormality. Dictated by: Dictated on workstation # [id number]
--- NOTE | 2017-05-01 13:05 | Cardiology Progress Note ---
Cardiology SOAP Progress Note Subjective: No further chest pain Objective: I&O/Vital Signs Vital Sign - Last 12Hours 05/01/17 05/01/17 05/01/17 05/01/17 02:00 04:00 04:00 04:00 Temp 98.4 Pulse 79 78 Resp 16 12 B/P (MAP) 91/61 112/68 Pulse Ox 96 98 96 O2 Delivery Room Air Room Air Room Air Room Air 05/01/17 05/01/17 05/01/17 05/01/17 05:00 06:00 07:00 07:00 Temp 98.9 Pulse 81 85 82 85 Resp 12 25 19 B/P (MAP) 113/65 108/60 107/61 Pulse Ox 95 95 O2 Delivery Room Air Room Air Room Air 05/01/17 08:00 Temp 98.7 O2 Delivery Room Air Intake and Output 05/01/17 00:00 Intake Total 1500 ml Balance 1500 ml Weight (Pounds): 228 Weight (Ounces): 12.8 Weight (Calculated Kilograms): 103.785047 Constitutional: No appears stated age, No AAO x 3, No apparent distress, No PERRL, No well-developed, No well-nourished, No other Respiratory: No accessory muscle use, No respiratory distress, No chest tender , No chest expansion is symmetric, No chest is bilaterally symmetric, No lungs clear to percussion, No lungs clear to auscultation, No crackles, No rhonchi, No rales, No stridor, No wheezing, No pleural rub, No other Cardiovascular: regular rate-rhythm, No irregularly irregular, No extra beats, No parasternal heave is noted, No JVD, No edema, No bradycardia, tachycardia, No point of maximal impulse, No cardiac thrills are palpable, S1 and S2, No gallop/S3, No gallop/S4, No diastolic murmur, No systolic murmur, No friction rub, No click, No other Gastrointestional: No tender, No soft, No round, No distended, No pulsatile mass, No organomegaly, No guarding, No rebound, No tenderness, No hernia, No mass, No audible bowel sounds, No abnormal bowel sounds, No abdominal bruits, No spleenomegaly, No other Extremities: No normal range of motion, No non-tender, No normal inspection, No pedal edema, No calf tenderness, No normal capillary refill, No pelvis stable , No calf tenderness, No inflammation, No pedal edema, No slow capillary refill , No swelling, No other, No abrasion, No clubbing, No cyanosis, No ecchymosis, No laceration, No no lower extremity edema bilateral, No significant edema, No tenderness, No wound Neurologic/Psychiatric: No box attacher II-XII nml as tested, No no motor/sensory deficits, No alert, No normal mood/affect, No oriented x 3, No abnormal cerebellar tests, No abnormal box attacher II-XII, No abnormal gait, No aphasia, No EOM palsy, No facial droop, No motor weakness, No sensory deficit, No depressed affect, No disoriented x 3, No other, No grossly intact, No power is 5/5 both on sides Skin: No normal color, No warm/dry, No cyanosis, No cool, No diaphoresis, No damp, No ecchymosis, No jaundice, No mottled, No pallor, No rash, No tattoos/ piercings, No ulcerations, No rash on exposed areas, No ulcerations on exposed areas, No other Results/Procedures: Labs Laboratory Tests 04/30/17 15:40: White Blood Count 13.9H, Red Blood Count 5.48, Hemoglobin 14.7, Hematocrit 44, Mean Corpuscular Volume 81, Mean Corpuscular Hemoglobin 27, Mean Corpuscular Hemoglobin Concent 33, Red Cell Distribution Width 14.1, Platelet Count 364, Mean Platelet Volume 10.4, Neutrophils (%) (Auto) 76H, Lymphocytes (%) (Auto) 15 , Monocytes (%) (Auto) 8, Eosinophils (%) (Auto) 1, Basophils (%) (Auto) 0, Neutrophils # (Auto) 10.6H, Lymphocytes # (Auto) 2.1, Monocytes # (Auto) 1.1H, Eosinophils # (Auto) 0.2, Basophils # (Auto) 0.0, Prothrombin Time 14.2, INR Comment 1.1, Activated Partial Thromboplast Time 35, D-Dimer 0.30, Sodium Level 137, Potassium Level 4.3, Chloride Level 101, Carbon Dioxide Level 27, Anion Gap 9, Blood Urea Nitrogen 15, Creatinine 0.97, Estimat Glomerular Filtration Rate > 60, BUN/Creatinine Ratio 15, Glucose Level 225H, Calcium Level 9.6, Magnesium Level 1.8, Total Bilirubin 0.3, Aspartate Amino Transf (AST/SGOT) 34, Alanine Aminotransferase (ALT/SGPT) 24, Alkaline Phosphatase 93, Myoglobin 71.5 , Troponin I 2.71*H, Total Protein 7.6, Albumin 4.1 04/30/17 18:21: Lactic Acid Level 0.95 05/01/17 00:20: Activated Partial Thromboplast Time 79H 05/01/17 02:03: White Blood Count 10.7, Red Blood Count 4.94, Hemoglobin 13.0L, Hematocrit 40, Mean Corpuscular Volume 81, Mean Corpuscular Hemoglobin 26, Mean Corpuscular Hemoglobin Concent 32, Red Cell Distribution Width 14.1, Platelet Count 326, Mean Platelet Volume 9.9, Neutrophils (%) (Auto) 64, Lymphocytes (%) (Auto) 24, Monocytes (%) (Auto) 10, Eosinophils (%) (Auto) 2, Basophils (%) (Auto) 0, Neutrophils # (Auto) 6.8, Lymphocytes # (Auto) 2.6, Monocytes # (Auto) 1.0, Eosinophils # (Auto) 0.2, Basophils # (Auto) 0.0, Activated Partial Thromboplast Time 34, Sodium Level 138, Potassium Level 4.0, Chloride Level 104 , Carbon Dioxide Level 19L, Anion Gap 15H, Blood Urea Nitrogen 12, Creatinine 1.00, Estimat Glomerular Filtration Rate > 60, BUN/Creatinine Ratio 12, Glucose Level 126H, Calcium Level 8.5, Magnesium Level 1.7L, Total Bilirubin 0.5, Aspartate Amino Transf (AST/SGOT) 39H, Alanine Aminotransferase (ALT/SGPT) 24, Alkaline Phosphatase 84, Troponin I 12.91*H, Total Protein 6.8, Albumin 3.7, Phosphorus Level 3.6, Triglycerides Level 230H, Cholesterol Level 124, LDL Cholesterol Direct 75, VLDL Cholesterol 46H, HDL Cholesterol 22L A/P: Assessment/Dx: non-STEMI, diabetes, possible pneumonia, active smoking Plan: non-STEMI refractory to medical therapy. PCI to the RCA was done. Staged PCI to left circumflex artery today. Aspirin, Plavix. Continue Integrilin until staged PCI Patient will be started on beta ramirez, Ha, statin. Smoking cessation was strongly recommended. Thank you for your consultation. Please call me if you have any questions. Nhaun Payne MD, FACP, FACC, FSCAI, FHRS, CCDS Interventional Cardiology Cardiac Electrophysiology Vascular Medicine and Endovascular Interventions Clinical Quality Measures AMI/AHF: ASA po Prior to arrival: Priscilla Chauhan MD May 01, 2017 13:05
[2017-05-01] MEDS ORDERED: HEParin (CATH LAB) 2,000 ML IV ONE (13:22)
[2017-05-01] MEDS ORDERED: MIDAZOLAM 5 MG/5 ML (VERSED) VIAL ONE (13:32)
[2017-05-01] MEDS ORDERED: fentaNYL INJECTION 100 MCG/2 ML AMP ONE (13:32)
[2017-05-01] MEDS ORDERED: diphenhydrAMINE 50 MG/ML INJ (BENADRYL) ONE (13:32)
--- NOTE | 2017-05-01 13:44 | CARDIAC CATHETERIZATION ---
PROCEDURE PHYSICIAN: JENELLE PAYNE CORONARY ANGIOGRAPHY AND PCI REPORT DATE OF PROCEDURE: 04/30/2017 PERFORMING PHYSICIAN: Dr. Jamie Payne. INDICATION: NSTEMI refractory to medical therapy. PREOPERATIVE DIAGNOSIS: NSTEMI refractory to medical therapy. POSTOPERATIVE DIAGNOSIS: NSTEMI refractory with PCI with drug eluting stent distal RCA. HISTORY: Mr. Carrizales is a young gentleman with history of diabetes and active smoking. He also has premature family history of coronary artery disease. He has been having chest pain since Sunday. However, he did not seek medical attention until this evening, which is 2 days, 48 hours later. Initial troponin in the ER was over 2.7. He was still having 5/10 chest pain. He was given bolus aspirin, bolus Plavix, IV heparin, nitroglycerin x2 and 6 mg of Morphine and still there was no relief in his chest pain. He also has a history of atrial fibrillation and is on Eliquis. Since his chest pain was not resolving on medical therapy, this is NSTEMI refractory to medical therapy and he was urgently taken to the Clinical Reimbursement Specialist. PROCEDURE PERFORMED: 1. Right femoral angiography. 2. Coronary angiography. 3. Left heart catheterization. 4. FFR of the left main. 5. PCI with drug eluting stent through distal RCA. COMPLICATIONS: None. SPECIMENS: None ESTIMATED BLOOD LOSS: 30 mL. Anticoagulation: IV heparin, IV Integrilin. Contrast dose: 185 mGy. Fluoroscopy time 21.7 minutes: Fluoroscopy dose: 2796 mGy. PROCEDURE DETAILS: The patient was brought to the Clinical Reimbursement Specialist after informed consent was taken. All the risks and complications were explained in detail. The patient was draped and prepped in the usual sterile fashion. Access was gained in the right femoral artery with a 6-Occitan sheath. Mild resistance was noted while putting the sheath in. Coronary angiography was performed with a JR4 catheter and a JL4 catheter. Left heart catheterization was performed with a pigtail catheter. FINDINGS: 1. Right femoral angiography: Showed that the sheath was initially behind a dissection plane and then was intraluminal in the right common femoral artery. However, there was good distal flow. 2. RCA: Totally occluded RCA with MARGARET 0 flow in the distal RCA. The distal vessel is not visible. 3. Left main has moderate disease 40% stenosis. 4. LAD: LAD is a small caliber vessel however has mild diffuse disease. There is no severe stenosis noted. 5. Ramus intermedius does not have any significant disease noted. 6. Left circumflex artery: Severe 90% stenosis in the mid segment. Left to right collaterals are noted. 7. Left heart catheterization: Aortic pressure 110 x 58. LV pressure 107 x 6 mmHg, LVEDP 17 mmHg. Normal LV function with inferior hypokinesis. There was no gradient across the aortic valve. RECOMMENDATION: 1. FFR to the left main is recommended. 2. PCI to distal RCA is recommended. PCI DETAILS: He started off with a JL4 guide catheter and FFR wire. Heparin was given as anticoagulation. ACT during the procedure was 260 seconds. We crossed the lesion in the left main and placed the FFR wire into the ramus intermedius branch. Adenosine was started at 140 mcg/kg per minute. FFR was 1.00 which is normal. Therefore this left main disease is not significant. We therefore took the wire and the guide catheter out. We then took a JR4 guide catheter then started off with Whisper wire; however, significant dampening was noted. Therefore, the JR4 guide catheter was taken out and we took another JR4 guide catheter with side holes. We took the Whisper wire; however, we had some difficulty getting into the distal vessel. Therefore, we took another the Guidewire which is a BMW guidewire and were able to cross the lesion into the PDA. However, no significant recanalization was noted. Our concern was either a perforation or dissection. At this point in time we took a small balloon 2.0 x 15 semi- compliant balloon and advanced it over the BMW wire into the PDA without any inflation This technique was successful in some recanalization and we saw that the wire was intraluminal. We then took the same balloon and did a gentle balloon inflation where the occlusion was. We observed vessel recanalization. We then took Cardene 100 mcg and injected via the guide catheter with no significant improvement. We then took a manual thrombectomy catheter and gave Cardene through the export catheter with some improvement. Manual thrombectomy was also performed, which resulted in better distal flow. We then took the Whisper wire back and placed it into a reasonable size PL branch. We then took the same 2.0 balloon and did inflation at the bifurcation of the PDA and PL back into the distal RCA. Four Inflations were done from 8 atmospheres till 12 atmospheres. Better recanalization was noted. We than took a 2.25 x 28 Xience Alpine drug eluting stent and deployed it at 10 atmospheres in the distal RCA with the distal stent just landing before the bifurcation of the RCA into the PL branch and the PDA. We then took Whisper wire out since it was trapped behind the stent, we took it out and took 3.0 x 20 noncompliant balloon and did a high pressure inflation at 14 atmospheres in the proximal and mid segment of the stent. After post dilatation excellent results were noted with MARGARET 3 flow. At this point in time, we decided that we would stop since he had good results and we would decide about further therapy in the near future. Due to increased clot burden, double bolus of Integrilin was given and Integrilin infusion was also started. IMPRESSION/CONCLUSION: 1. The patient will be transferred to the ICU. 2. Moderate left main disease with normal FFR, severe left circumflex artery stenosis which probably could be treated as a staged intervention. 3. Totally occluded RCA in the distal segment treated with manual thrombectomy, balloon angioplasty and PCI with drug eluting stent, which was successful. 1. Continue IV Integrilin. 2. Continue IV Integrilin for the next 18 hours. 3. Continue aspirin and Plavix for at least a year. Will start beta ramirez, YASHIRA inhibitor and high-dose statin. 4. 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 5. The right lower extremity will be watched overnight and likely an ultrasound will be done in the morning. If we do a staged procedure tomorrow, we will gain access to the left femoral artery and take an angiographic view of the right femoral artery as well. Job ID: [id number] Dictated Date: 04/30/2017 23:15:23 Gyroscopic Engineering Technician Date: 05/01/2017 12:54:11 / adriana HEALY
[2017-05-01] MEDS ORDERED: NITROGLYCERIN DRIP 25 MG/D5W 250 ML IV ONE (14:07)
[2017-05-01] MEDS ORDERED: HEParin 1000 UNIT/ML (10ML VIAL) FOR BOLUS ONE (14:07)
--- NOTE | 2017-05-01 15:27 | Cardiac Procedure Note-CS/ASA ---
Pre-Procedure Note Pre-Op Procedure Note H&P Reviewed The H&P was reviewed, patient examined and no changes noted. Date H&P Reviewed: May 01, 2017 Time H&P Reviewed: 13:00 Conscious Sedation Pre-Proced Time Reviewed: 13:00 ASA Class: 3 Airway Mallampati Classification: ([place] appropriate class) I. II. III, IV Lungs Heart ASA score ASA 1: a normal healthy patient ASA 2: a patient with a mild systemic disease (mid diabetes, controlled hypertension, obesity ASA 3: a patient with a severe systemic disease that limits activity (angina , COPD, prior Myocardial infarction) ASA 4: a patient with an incapacitating disease that is a constant threat to life (CHF, renal failure) ASA 5: a moribund patient not expected to survive 24 hrs. (ruptured aneurysm) ASA 6: a declared brain patient whose organs are being harvested. For emergent operations, add the letter E after the classification Grade 1 Sedation Plan: Analgesia, Amnesia, Plan communicated to team members, Discussed options with patient/fam, Discussed risks with patient/fam Note The patient is an appropriate candidate to undergo the planned procedure, sedation, and anesthesia. The patient immediately re-assessed prior to indication. Priscilla WAGGONER MD May 01, 2017 3:27 pm
--- NOTE | 2017-05-01 15:29 | Cardiology Post Procedure Note ---
Post-Procedure Note Physician (s)/Plug Shaper Hand (s) Physician Priscilla WAGGONER MD Pre-Procedure Diagnosis Pre-Procedure Diagnosis: nstemi Post-Procedure Note Procedure Start Date: May 01, 2017 Procedure Start Time: 14:00 Name of Procedure: Right femoral angiography, Right coronary angiography, PCI to LCX with NAYANA Findings/Procedure Note Mild non-flow limiting dissection noted in right femoral artery. Patent RCA stent with MARGARET III flow distally. Severe 90% LCX stenosis treated with NAYANA. Anesthesia Type: Conscious Sedation Estimated blood loss (mL): 30 Contrast Amount: 160 Post-Procedure Diagnosis Post-operative diagnosis: PCI to the LCX with NAYANA Priscilla WAGGONER MD May 01, 2017 3:29 pm
[2017-05-01] MEDS ORDERED: PATIENT MAY USE OWN MEDS, ALL PO SCH (15:30)
[2017-05-01] MEDS: RT-ADVAIR HFA 115/21 MCG PER PUFF IH SCH (21:29)
[2017-05-02] VITALS (8 sets, daily range): BP systolic 90–126; BP diastolic 58–79
[2017-05-02] MEDS: PIPERACILLIN/TAZOBACTAM 4.5 GM/NS 100 ML IVPB IV SCH ×4 (00:09→08:41)
[2017-05-02 04:04] LABS: BASOPHILS % (AUTO) 0 % (0-10); EOSINOPHILS # (AUTO) 0.2 10^3/uL (0.0-0.3); EOSINOPHILS % (AUTO) 2 % (0-10); LYMPHOCYTES # (AUTO) 1.8 X 10^3 (1.0-4.0); LYMPHOCYTES % (AUTO) 18 % (12-44); MEAN CORPUSCULAR HEMOGLOBIN 27 PG (25-34); MEAN CORPUSCULAR HGB CONC 33 G/DL (32-36); MEAN CORPUSCULAR VOLUME 82 FL (80-99); MEAN PLATELET VOLUME 10.3 FL (7.4-10.4); MONOCYTES # (AUTO) 0.8 X 10^3 (0.0-1.0); MONOCYTES % (AUTO) 8 % (0-12); NEUTROPHILS # (AUTO) 7.3 X 10^3 (1.8-7.8); NEUTROPHILS % (AUTO) 72 % (42-75); PLATELET COUNT 289 10^3/uL (130-400); RED BLOOD COUNT 4.34 10^6/uL (4.35-5.85); WHITE BLOOD COUNT 10.1 10^3/uL (4.3-11.0)
[2017-05-02 05:14] LABS: ANION GAP 9 MMOL/L (5-14); BLOOD UREA NITROGEN 11 MG/DL (7-18); BUN/CREATININE RATIO 12; CALCIUM 8.5 MG/DL (8.5-10.1); CARBON DIOXIDE 23 MMOL/L (21-32); CHLORIDE 106 MMOL/L (98-107); CREATININE SERUM 0.91 MG/DL (0.60-1.30); GFR ESTIMATED > 60; GLUCOSE 133 MG/DL (70-105); MAGNESIUM 1.8 MG/DL (1.8-2.4); PHOSPHORUS 4.5 MG/DL (2.3-4.7); POTASSIUM 4.1 MMOL/L (3.6-5.0); SODIUM 138 MMOL/L (135-145)
[2017-05-02] MEDS: POTASSIUM CL 10MEQ/50ML IVPB 50 ML IV SCH (06:00)
[2017-05-02] MEDS: inSUlin (REGULAR) HUMAN 1 UNIT/0.01 ML (CHARGE PER UNIT) SC SCH ×2 (06:00→11:00)
[2017-05-02] MEDS: KCL 20 MEQ TAB (K-DUR) PO SCH (06:00)
[2017-05-02] MEDS: MAGNESIUM 1 GM/100 ML IVPB 100 ML IV SCH (06:00)
[2017-05-02 07:42] LABS: TROPONIN I 3.87 NG/ML (<0.30)
--- NOTE | 2017-05-02 08:14 | Progress Note-Cardiology ---
Cardiology SOAP Progress Note Subjective: No cp or palp or syncope or groin discomfort. Wishes to go home Objective: I&O/Vital Signs Vital Sign - Last 12Hours 05/01/17 05/01/17 05/01/17 05/02/17 21:00 22:00 23:00 00:00 Temp 98.4 Pulse 80 86 78 76 Resp 19 13 13 21 B/P (MAP) 131/60 113/76 110/70 112/64 O2 Delivery Room Air Room Air Room Air Room Air 05/02/17 05/02/17 05/02/17 05/02/17 00:00 01:00 01:00 02:00 Pulse 84 81 78 Resp 10 B/P (MAP) 104/58 O2 Delivery Room Air Room Air Room Air 05/02/17 05/02/17 05/02/17 05/02/17 03:00 04:00 04:00 05:00 Temp 98.1 Pulse 81 81 82 Resp 12 11 13 B/P (MAP) 90/62 103/64 117/79 O2 Delivery Room Air Room Air Room Air Room Air 05/02/17 05/02/17 05/02/17 06:00 07:00 07:00 Pulse 82 83 83 Resp 24 16 B/P (MAP) 109/58 114/65 O2 Delivery Room Air Room Air Intake and Output 05/02/17 00:00 Intake Total 350 ml Output Total 300 ml Balance 50 ml Weight (Pounds): 227 Weight (Ounces): 8.0 Weight (Calculated Kilograms): [id number] Groin site without hematoma: Yes Bruising: mild bruising (bilateral) Constitutional: No appears stated age, No AAO x 3, No apparent distress, No PERRL, No well-developed, No well-nourished, No other Respiratory: No accessory muscle use, lungs clear to percussion, lungs clear to auscultation Cardiovascular: regular rate-rhythm, S1 and S2, systolic murmur (soft ASIF at cardiac tj) Gastrointestional: No tender, No guarding, No rebound, audible bowel sounds Extremities: No pedal edema, No clubbing, No cyanosis Neurologic/Psychiatric: oriented x 3, grossly intact, power is 5/5 both on sides Skin: No rash on exposed areas, No ulcerations on exposed areas Results/Procedures: Labs Laboratory Tests 7/25/17 11:16: Glucometer 168H 05/01/17 16:03: Glucometer 222H 05/01/17 21:18: Glucometer 147H 05/02/17 03:34: White Blood Count 10.1, Red Blood Count 4.34L, Hemoglobin 11.5L, Hematocrit 35L , Mean Corpuscular Volume 82, Mean Corpuscular Hemoglobin 27, Mean Corpuscular Hemoglobin Concent 33, Red Cell Distribution Width 14.0, Platelet Count 289, Mean Platelet Volume 10.3, Neutrophils (%) (Auto) 72, Lymphocytes (%) (Auto) 18 , Monocytes (%) (Auto) 8, Eosinophils (%) (Auto) 2, Basophils (%) (Auto) 0, Neutrophils # (Auto) 7.3, Lymphocytes # (Auto) 1.8, Monocytes # (Auto) 0.8, Eosinophils # (Auto) 0.2, Basophils # (Auto) 0.0, Sodium Level 138, Potassium Level 4.1, Chloride Level 106, Carbon Dioxide Level 23, Anion Gap 9, Blood Urea Nitrogen 11, Creatinine 0.91, Estimat Glomerular Filtration Rate > 60, BUN/ Creatinine Ratio 12, Glucose Level 133H, Calcium Level 8.5, Phosphorus Level 4.5 , Magnesium Level 1.8, Troponin I 3.87*H Microbiology 04/30/17 Blood Culture - Preliminary, Resulted No growth Laboratory Tests 04/30/17 15:40 05/01/17 02:03 05/02/17 03:34 A/P: Assessment: CAD. S/p NSTEMI on 04/30/17 treated with NAYANA of RCA (Alp Xience 2.25x28) associated with non-flow limiting dissection of the R common fem; LMCA 40% with FFR 1.00; inf hypokinesis with LVEF reportedly sussy; LVEDP 17; and 90% LCX that was treated with staged NAYANA of LCX on 05/01/17 Palpitations: PAF, by history (but undocumented): CHADSVaSc score 2 ( hyptertension and DM II) OAC with Eliquis for stroke prophylaxis S/p ILR placement on 08/15/16; no arrhythmia documented thus far TSH normal on 08/03/16 Chronic REY, likely related to chronic tobacco use (probable COPD) and obesity ( BMI approx 38) Echo of 10/20/15 showed LVEF 60%, trivial MR and TR, no valvular stenosis DM II, managed by his fam phy Daytime tiredness and obesity are suggestive of sleep apnea syndrome. Further eval is advised, but he refuses Chronic tobbaco use Plan: Complex management due to multiple comorbidities I have reviewed the records of this admission and interventions undertaken in detail Will continue Plavix because of recent NAYANA x 2 Will continue Eliquis because of h/o PAF Will hold off on aspirin to reduce risk of bleeding Have discussed risk factor modification with him in detail Have again advised smoking cessation and sleep studies Have advised close outpat clinical f/u Have answered questions in detail Clinical Quality Measures AMI/AHF: ASA po Prior to arrival: DEANA Li MD FACP FAC CCDS May 02, 2017 08:14
--- NOTE | 2017-05-02 08:21 | Diagnostic Imaging Report ---
INDICATION: Chest pain. TECHNIQUE: Single view chest 05:24 a.m. CORRELATION STUDY: 05/01/2017 FINDINGS: Electronic device over the left heart border is again demonstrated but changed in position. Heart size upper limits normal. Vasculature within normal limits. Minimal right infrahilar atelectasis. Lung mcgee otherwise clear and unremarkable. IMPRESSION: 1. Borderline heart size without failure. 2. Minimal right infrahilar atelectasis. Dictated by: Dictated on workstation # [id number]
[2017-05-02] MEDS ORDERED: CLOP75TA28 PO (08:31)
[2017-05-02] MEDS ORDERED: LISI-552 PO (08:31)
[2017-05-02] MEDS ORDERED: ATOR80TA76 PO (08:31)
--- NOTE | 2017-05-02 08:33 | Discharge Inst-Post CATH ---
Discharge Inst-CATH Post Cardiac Cath D/C Inst Follow Up/Plan F/u with Dr José in 1-2 weeks DO NOT RESTART METFORMIN UNTIL TOMORROW EVEINING CARDIAC CATH DISCHARGE INSTRUCTIONS *Hold Metformin for 48 hours post heart cath. ACTIVITY * Go Home directly and rest. * Limit activity of the leg (or wrist if it was used) for 7 days including aerobics, swimming, jogging, bicycling, etc. * Restrict stair-climbing for 7 days if possible, if not, climb up with your non -cath leg, then bring together on the same step. * Avoid lifting, pushing, pulling or excessive movement of the affected extremity for 7 days. * Customary sexual activity may be resumed after 2 days-use caution not to use a position that strains or causes pain to the affected extremity. * No driving for 24 hours. * NO SMOKING. * Avoid straining for bowel movements for 7 days. * Gentle walking on level ground is allowed. * Returning to work will depend on the type of procedure and the results. Your doctor will discuss this with you. CALL YOUR DOCTOR FOR ANY OF THE FOLLOWING: *If bleeding from the puncture site occurs- Apply gentle pressure to site with clean cloth and call your doctor or EMS. * If a knot or lump forms under the skin, increases in size, or causes pain. * If bruising appears to be worsening or moving further down your leg instead of disappearing. * Temperature above 101 F. CARE OF YOUR GROIN INCISION; * Bruising or purple discoloration of the skin near the puncture site is common. * You may shower only, no bathtub bathing for 5 days. Be careful to avoid slipping as your leg may feel stiff. * If a closure device was used on your femoral artery, please see the attached guide regarding care of the device and your leg. * REMOVE the dressing from your groin the next day after your procedure in the shower. CARE OF YOUR WRIST INCISION; * Bruising or purple discoloration of the skin near the puncture site is common. * You may shower. * DO NOT submerge wrist. * Remove dressing in 24 hours. DEANA JOSÉ MD [facility]S May 02, 2017 08:33
[2017-05-02] MEDS: CLOPIDOGREL 75 MG (PLAVIX) TABLET PO SCH (08:41)
[2017-05-02] MEDS: meTOprolol TARTRATE 50 MG (LOPRESSOR) TAB PO SCH (08:41)
[2017-05-02] MEDS: ASPIRIN E.C. 81 MG (ECOTRIN) TAB PO SCH (08:41)
--- NOTE | 2017-05-02 09:06 | Pulmonary Progress Note ---
Subjective Time Seen by Provider: 09:05 Subjective/Events-last exam Pt is doing better. No complications noted currently. Exam Exam Vital Signs Date Time Temp Pulse Resp B/P (MAP) Pulse Ox O2 Delivery O2 Flow Rate FiO2 05/02/17 08:00 85 19 126/70 Room Air 05/02/17 07:00 83 05/02/17 07:00 83 16 114/65 Room Air 05/02/17 06:00 82 24 109/58 Room Air 05/02/17 05:00 82 13 117/79 Room Air 05/02/17 04:00 Room Air 05/02/17 04:00 98.1 81 11 103/64 Room Air 05/02/17 03:00 81 12 90/62 Room Air 05/02/17 02:00 78 10 104/58 Room Air 05/02/17 01:00 81 Room Air 05/02/17 01:00 84 05/02/17 00:00 Room Air 05/02/17 00:00 98.4 76 21 112/64 Room Air 05/01/17 23:00 78 13 110/70 Room Air 05/01/17 22:00 86 13 113/76 Room Air 05/01/17 21:00 80 19 131/60 Room Air 05/01/17 20:00 Room Air 05/01/17 20:00 98.2 81 14 108/64 Room Air 05/01/17 19:00 82 15 120/68 Room Air 05/01/17 19:00 86 05/01/17 18:00 78 24 115/66 Room Air 05/01/17 17:30 80 16 115/70 Room Air 05/01/17 16:00 98.0 Room Air 05/01/17 15:45 104/66 Room Air 05/01/17 13:00 75 05/01/17 13:00 77 11 108/61 97 Room Air 05/01/17 12:00 97.4 Room Air 05/01/17 11:00 17 109/68 98 Room Air 05/01/17 10:00 25 99/60 96 Room Air I & O 05/02/17 07:00 Intake Total 1076 ml Output Total 1100 ml Balance -24 ml General Appearance: No Apparent Distress, WD/WN, Chronically ill, Obese HEENT: PERRL/EOMI, Normal ENT Inspection, Pharynx Normal Neck: Full Range of Motion, Normal Inspection, Non Tender, Supple, Carotid Bruit Respiratory: Chest Non Tender, Lungs Clear, Normal Breath Sounds, No Accessory Muscle Use, No Respiratory Distress Cardiovascular: Regular Rate, Rhythm, No Edema, No Gallop, No JVD, No Murmur, Normal Peripheral Pulses Capillary Refill: Less Than 3 Seconds Extremity: Normal Capillary Refill, Normal Inspection, Normal Range of Motion, Non Tender, No Calf Tenderness, No Pedal Edema Neurologic/Psychiatric: Alert, Oriented x3, No Motor/Sensory Deficits, Normal Mood/Affect Skin: Normal Color, Warm/Dry Lymphatic: No Adenopathy Results Lab Laboratory Tests 04/30/17 15:40 05/01/17 02:03 05/02/17 03:34 Assessment/Plan Assessment/Plan NSTEMI s/p cath -Cardiology following - Tobacco use -education Mild CAP -Change zosyn to augmentin for total Abx of 5 days -Will treat x 5 days total Pt is ok from my standpoint for discharge. 232 will have pt f/u with me in office in 3-4 wks. He will need a repeat CXR. Clinical Quality Measures AMI/AHF: ASA po Prior to arrival: No DVT/VTE Risk/Contraindication: Risk Factor Score Per Nursin RFS Level Per Nursing on Admit: 3=High JAREK MAYA DO May 02, 2017 09:06
[2017-05-02] MEDS: RT-ADVAIR HFA 115/21 MCG PER PUFF IH SCH (09:47)
--- NOTE | 2017-05-02 10:43 | Discharge Summary-Hospitalist ---
Diagnosis/Chief Complaint Date of Admission Apr 30, 2017 at 17:47 Date of Discharge Admission Diagnosis Assessment: Chest pain with non-ST elevation undergoing cardiac catheterization with intervention today Current smoker Hypertension Hyperlipidemia Obesity GERD Elevated triglycerides Discharge Diagnosis Assessment: Chest pain with non-ST elevation s/p cardiac catheterization with intervention uncomplicated Early RLL infiltrate c/w pneumonia Current smoker Hypertension Hyperlipidemia Obesity GERD Elevated triglycerides Plan: Cardiac catheterization today with intervention Smoking cessation Heparin drip Pain control Nebulizers Antibiotic Reason Hospital Visit/Course CC: NSTEMI w/pneumonia HPI: This is a 51-year-old white male that used to smoke 3 packs a day now down to one half pack per day to presents to the emergency room with chest pain diagnosed with non-ST elevation MS and will have cardiac catheterization with intervention today by cardiology. He was found to have infiltrate on chest x- ray so pneumonia protocol was followed. At this current time patient denies any significant shortness of breath or chest pain and ready for procedure around noon today. Smoking cessation was counseled. Notes from 05/02/17 Patient Interview: Pt confirmed his repeat catheter last night. Pt states that he has two catheters Pt said Dr. José informed him that he could DC if I said okay Physical exam stable. Lungs sound perfect Pt states he feels better now than he ever did before Pt confirms [facility] as pharmacy Abx discussed Pt states that Dr. José changed his Lisinopril and gave him Plavix AFVSS, Pleasant, O x 3 RRR, CTAB No edema Plan: Maintain abx at DC Scribed by Piper Serra under the direct supervision of Dr. Abdul. Hospital course: Patient had an uncomplicated hospital course he was admitted for chest pain and elevated troponin for non-ST elevation and underwent to phase cardiac catheterization with intervention with no complications. He was placed on Plavix and other medication per cardiology protocol and was deemed stable for discharge on 5 additional days of antibiotic for the early pneumonia in the right lower lobe infiltrate noted on admission. Smoking cessation was counseled. Discharge Summary Discharge Physical Examination Allergies: Coded Allergies: bee pollen (Unverified Allergy, Mild, 12/29/09) Vitals & I&Os Vital Signs Date Time Temp Pulse Resp B/P (MAP) Pulse Ox O2 Delivery O2 Flow Rate FiO2 05/02/17 09:47 96 Room Air 05/02/17 08:00 85 19 126/70 05/02/17 08:00 97.4 Hospital Course Labs (last 24 hrs) Laboratory Tests 05/01/17 16:03: Glucometer 222H 05/01/17 21:18: Glucometer 147H 05/02/17 03:34: White Blood Count 10.1, Red Blood Count 4.34L, Hemoglobin 11.5L, Hematocrit 35L , Mean Corpuscular Volume 82, Mean Corpuscular Hemoglobin 27, Mean Corpuscular Hemoglobin Concent 33, Red Cell Distribution Width 14.0, Platelet Count 289, Mean Platelet Volume 10.3, Neutrophils (%) (Auto) 72, Lymphocytes (%) (Auto) 18 , Monocytes (%) (Auto) 8, Eosinophils (%) (Auto) 2, Basophils (%) (Auto) 0, Neutrophils # (Auto) 7.3, Lymphocytes # (Auto) 1.8, Monocytes # (Auto) 0.8, Eosinophils # (Auto) 0.2, Basophils # (Auto) 0.0, Sodium Level 138, Potassium Level 4.1, Chloride Level 106, Carbon Dioxide Level 23, Anion Gap 9, Blood Urea Nitrogen 11, Creatinine 0.91, Estimat Glomerular Filtration Rate > 60, BUN/ Creatinine Ratio 12, Glucose Level 133H, Calcium Level 8.5, Phosphorus Level 4.5 , Magnesium Level 1.8, Troponin I 3.87*H Microbiology 04/30/17 Blood Culture - Preliminary, Resulted No growth Pending Labs Laboratory Tests 05/02/17 03:34: White Blood Count 10.1, Red Blood Count 4.34, Hemoglobin 11.5, Hematocrit 35, Mean Corpuscular Volume 82, Mean Corpuscular Hemoglobin 27, Mean Corpuscular Hemoglobin Concent 33, Red Cell Distribution Width 14.0, Platelet Count 289, Mean Platelet Volume 10.3, Neutrophils (%) (Auto) 72, Lymphocytes (%) (Auto) 18 , Monocytes (%) (Auto) 8, Eosinophils (%) (Auto) 2, Basophils (%) (Auto) 0, Neutrophils # (Auto) 7.3, Lymphocytes # (Auto) 1.8, Monocytes # (Auto) 0.8, Eosinophils # (Auto) 0.2, Basophils # (Auto) 0.0, Sodium Level 138, Potassium Level 4.1, Chloride Level 106, Carbon Dioxide Level 23, Anion Gap 9, Blood Urea Nitrogen 11, Creatinine 0.91, Estimat Glomerular Filtration Rate > 60, BUN/ Creatinine Ratio 12, Glucose Level 133, Calcium Level 8.5, Phosphorus Level 4.5 , Magnesium Level 1.8, Troponin I 3.87 Discharge Home Medications: Active Scripts Active Cefdinir 300 Mg Capsule 300 Mg PO BID Lisinopril 20 Mg Tablet 20 Mg PO DAILY 90 Days Atorvastatin Calcium 80 Mg Tablet 80 Mg PO HS 90 Days Clopidogrel (Clopidogrel Bisulfate) 75 Mg Tablet 75 Mg PO DAILY 90 Days Reported Vitamin D (Cholecalciferol (Vitamin D3)) 5,000 Unit Capsule 10,000 Unit PO DAILY TAKES 2 (5,000 MG) CAPSULES Eliquis (Apixaban) 5 Mg Tablet 5 Mg PO BID Glipizide 10 Mg Tablet 10 Mg PO BID Victoza 3-Paresh (Liraglutide) 0.6 Mg/0.1 Ml Pen.injctr 1.8 Mg SQ 1800 Metformin HCl 1,000 Mg Tablet 1,000 Mg PO BID Symbicort 160-4.5 Mcg Inhaler (Budesonide/Formoterol Fumarate) 10.2 Gm Hfa.aer.ad 2 Puff IH BID Instructions to patient/family Please see electonic discharge instructions given to patient. Clinical Quality Measures AMI/AHF: ASA po Prior to arrival: No DVT/VTE Risk/Contraindication: Risk Factor Score Per Nursin RFS Level Per Nursing on Admit: 3=High HUNTER ABDUL DO May 02, 2017 10:42
[2017-05-02] MEDS ORDERED: CEFD300C3 PO (10:46)
[2017-05-02] MEDS: NS IV 1000 ML 1,000 ML IV SCH (11:29)
--- NOTE | 2017-05-02 13:07 | CARDIAC CATHETERIZATION ---
PROCEDURE PHYSICIAN: JENELLE PAYNE DATE OF PROCEDURE: 05/01/2017 PERFORMING PHYSICIAN: Dr. Jamie Payne. INDICATION: Staged PCI to the left circumflex artery. PREOPERATIVE DIAGNOSIS: NSTEMI, staged PCI to the left circumflex artery. POSTOPERATIVE DIAGNOSIS: 1. NSTEMI. 2. Staged PCI to the mid left circumflex artery with drug eluting stent. 3. Mild flow limiting dissection noted in the right femoral artery. 4. Patent RCA stent with MARGARET 3 flow distally. HISTORY: Mr. Carrizales is a 51-year-old gentleman with history of diabetes and active smoking. He presented on NSTEMI refractory to medical therapy. Therefore he was taken urgently to the [facility] last evening and a drug eluting stent was placed in the distal RCA. Complicated procedure with significant clot burden and diffuse disease. Treated with drug eluting stent, manual thrombectomy and significant intracoronary nicardipine injection boluses. Also during the right access during the right femoral artery we went behind dissection plane and then intraluminal. Therefore the plan was to do access wire left femoral artery and to do an angiogram of the right femoral artery as well as do a staged PCI to the left circumflex artery and look at the right coronary artery after overnight Integrilin infusion. PROCEDURE PERFORMED: 1. Abdominal aortography with bilateral runoff in the iliac, common femoral and superficial femoral arteries. 2. Coronary angiography. 3. PCI to the left circumflex artery with a drug eluting stent. COMPLICATIONS: None. SPECIMEN: None. ESTIMATED BLOOD LOSS: 30 mL. Anticoagulation: IV Integrilin, IV heparin. Contrast: 160 mL. Fluoroscopy time: 11.0 minutes. Fluoroscopy dose: 1491 mGy. PROCEDURE DETAILS: The patient was brought to the experimental machining lab manager after informed consent was taken. All the risks and complications were explained in detail. The patient was draped and prepped in the usual sterile fashion. Access was gained in the left femoral artery with a 6-Greek sheath. Abdominal aortogram was performed with a pigtail catheter. Right coronary angiography was performed with a JR4 catheter. Left coronary system was engaged first with a JL4 guide catheter and then an EBU 3.5 guide catheter. FINDINGS: 1. Abdominal aortogram and runoff: Normal distal abdominal aorta, bilateral common iliac artery, external iliac artery, left common femoral artery, left SFA. On the right side mild nonflow limiting dissection is noted in the right common femoral artery with good flow distally with no disease in the right superficial femoral artery. Dissection is less than 30% of the total diameter of the common femoral artery. 2. RCA: Mild disease is noted in the midsegment with patent stent and good flow distally, MARGARET 3 flow distally. 3. Left coronary system: Severe disease in the mid left circumflex artery. RECOMMENDATION: 1. PCI to the left circumflex artery is recommended. PCI details: We started off with a JL4 catheter and a Whisper wire. The lesion in the left circumflex artery was crossed with a Whisper wire. IV Integrilin infusion and IV heparin was given for the anticoagulation. ACT was over 219 seconds. We were able to cross the lesion in the mid left circumflex artery and place the tip of the wire in an obtuse marginal artery. Nitroglycerin was given which showed improved flow through the blood vessel. We then took a 2.25 x 23 Xience Alpine stent, but were not able to cross into the left circumflex artery due to any acute angles. Therefore, we took the JL4 guide catheter out and exchanged for an EBU 3.5 guide catheter. We then took the same Whisper wire and was able to cross the lesion again and placed the wire tip between the obtuse marginal artery. We then took the same a Xience Alpine stent 2.25 x 23 mm and deployed it at 16 atmospheres for one minute. We then took a 25 x 20 NC Quantum balloon and performed two post dilatation inflations in the proximal and mid segment of the stent. Both inflations were done. The first inflation was done at 20 atmospheres for 36 seconds in the proximal segment and 16 atmospheres for 31 seconds in the midsegment. No residual stenosis. MARGARET 3 flow was noted. Excellent angiographic results. The wire was taken out with both stent angiograms showing excellent results. The patient tolerated the procedure well and did not have any complication. CONCLUSION: 1. NSTEMI patent stent to the RCA done last night. 2. Mild nonflow limiting dissection in the right femoral artery. No other significant TID. 3. Successful PCI to the left circumflex artery with a drug eluting stent. 1. Continue Integrilin for another 3 to 4 hours. 2. Continue aspirin and Plavix for at least one year. 3. Check troponin and labs in the morning. 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
[2017-05-02] MEDS ORDERED: AUGMENTIN 875 MG TAB (AMOXICILLIN/CLAVULANATE) PO SCH (17:00)
== END 2017-05-02 12:30 | disposition home or self-care (01) | DRG 246 ==
LOC: EDUNIT# 15:31 → ER 15:34 → ICU 17:47
PROVIDERS: ADMIT Internal Medicine; ATTEND Internal Medicine
PROC: 027034Z Dilation of Coronary Artery, One Artery with Drug-eluting Intraluminal Device, Percutaneous Approach (ICD-10-PCS; principal; 2017-04-30)
PROC: 4A023N7 Measurement of Cardiac Sampling and Pressure, Left Heart, Percutaneous Approach (ICD-10-PCS; 2017-04-30)
PROC: B2111ZZ Fluoroscopy of Multiple Coronary Arteries using Low Osmolar Contrast (ICD-10-PCS; 2017-04-30)
PROC: B41F1ZZ Fluoroscopy of Right Lower Extremity Arteries using Low Osmolar Contrast (ICD-10-PCS; 2017-04-30)
PROC: 4A033BC Measurement of Arterial Pressure, Coronary, Percutaneous Approach (ICD-10-PCS; 2017-04-30)
PROC: B2101ZZ Fluoroscopy of Single Coronary Artery using Low Osmolar Contrast (ICD-10-PCS; 2017-05-01)
PROC: 027034Z Dilation of Coronary Artery, One Artery with Drug-eluting Intraluminal Device, Percutaneous Approach (ICD-10-PCS; 2017-05-01)
PROC: B41F1ZZ Fluoroscopy of Right Lower Extremity Arteries using Low Osmolar Contrast (ICD-10-PCS; 2017-05-01)
PROC: B41D1ZZ Fluoroscopy of Aorta and Bilateral Lower Extremity Arteries using Low Osmolar Contrast (ICD-10-PCS; 2017-05-01)
DX: I21.4 Non-ST elevation (NSTEMI) myocardial infarction (principal); J18.9 Pneumonia, unspecified organism; F17.210 Nicotine dependence, cigarettes, uncomplicated; I48.0 Paroxysmal atrial fibrillation; I25.10 Atherosclerotic heart disease of native coronary artery without angina pectoris; E78.5 Hyperlipidemia, unspecified; I10 Essential (primary) hypertension; E11.9 Type 2 diabetes mellitus without complications; K21.9 Gastro-esophageal reflux disease without esophagitis; E66.9 Obesity, unspecified; Z68.38 Body mass index [BMI] 38.0-38.9, adult; Z79.01 Long term (current) use of anticoagulants; G47.33 Obstructive sleep apnea (adult) (pediatric); J44.9 Chronic obstructive pulmonary disease, unspecified
CPT/HCPCS: 36415; 71010; 75630; 80048; 80053; 80061; 82962; 83605; 83735; 83874; 84100; 84484; 85025; 85347; 85379; 85610; 85730; 87040; 93005; 93041; 93306; 93458; 93571; 94640; 96361; 96365; 96375

== ENCOUNTER → 2017-06-12 | Outpatient (CLI) | payer OTHER ==
[~2017-06-12] MED LIST changes: +APIX5TAB PO; +ATOR80TA76 PO; +CEFD300C3 PO; +CHOL500050 PO; +CLOP75TA28 PO; +GLIP10TA13 PO; +LISI-552 PO
[2017-06-12 08:06] LABS: ALANINE AMINOTRANSFERASE 16 U/L (0-55); ALBUMIN 3.9 GM/DL (3.2-4.5); ANION GAP 12 MMOL/L (5-14); ASPARTATE AMINO TRANSFERASE 14 U/L (5-34); BILIRUBIN,TOTAL 0.4 MG/DL (0.1-1.0); BLOOD UREA NITROGEN 15 MG/DL (7-18); BUN/CREATININE RATIO 16; CALCIUM 9.3 MG/DL (8.5-10.1); CARBON DIOXIDE 24 MMOL/L (21-32); CHLORIDE 103 MMOL/L (98-107); CHOLESTEROL 153 MG/DL (< 200); CREATININE SERUM 0.93 MG/DL (0.60-1.30); DIRECT LDL 72 MG/DL (1-129); GFR ESTIMATED > 60; GLUCOSE 143 MG/DL (70-105); POTASSIUM 4.1 MMOL/L (3.6-5.0); SODIUM 139 MMOL/L (135-145); TOTAL PROTEIN 7.2 GM/DL (6.4-8.2); TRIGLYCERIDES 407 MG/DL (<150); VLDL CHOLESTEROL 81 MG/DL (5-40)
== END ==
LOC: LAB 07:28
PROVIDERS: ATTEND Internal Medicine Cardiovascular Disease
DX: I25.10 Atherosclerotic heart disease of native coronary artery without angina pectoris (principal); E78.4 Other hyperlipidemia
CPT/HCPCS: 36415; 80053; 80061

== ENCOUNTER 2018-05-20 14:50 | Day surgery (SDC) | payer SELFPAY ==
[~2018-05-20] VITALS: Ht 177.8 cm; Wt 102.3 kg
[2018-05-20] VITALS (10 sets, daily range): BP systolic 100–129; BP diastolic 69–84
[~2018-05-20 14:50] MED LIST changes: +ACHD5005 PO; -GEMF600T3; +GEMF600T4; -HYDR-3812 PO; -METF1000 PO; +METF10002 PO
--- OUTSIDE RECORDS SUMMARY | 2018-05-20 14:58 | XMS REPORT | Continuity of Care Document ---
Author Author [facility] Organization [facility] Address Unknown Phone Unavailable Allergies Active Description Code Type Severity Reaction Onset Reported/Identified Relationship to Patient Clinical Status Yes Bee Pollen [id number] Drug Allergy Mild N/A 12/29/2009 Medications There is no data. 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 01/10/2015 CHAPO WATTS MD Ot 305.1 TOBACCO USE DISORDER 01/10/2015 CHAPO WATTS MD Ot 465.9 ACUTE URI NOS 01/10/2015 CHAPO WATTS MD Ot 719.46 JOINT PAIN-L/LEG 04/05/2015 MARKUS GONZALEZ IGNITION SPECIALIST Ot 815.00 04/05/2015 MARKUS GONZALEZ IGNITION SPECIALIST Ot 959.5 04/05/2015 MARKUS GONZALEZ IGNITION SPECIALIST Ot E000.0 04/05/2015 MARKUS GONZALEZ IGNITION SPECIALIST Ot E919.0 05/03/2015 MELONIE RUIZ DO Ot 719.45 JOINT PAIN-PELVIS 05/03/2015 MELONIE RUIZ DO Ot 724.3 SCIATICA 03/28/2016 DEANA MULLIGAN MD, FACC, FACP CCDS Ot R00.2 PALPITATIONS 03/28/2016 ISAAK VANCE FACC, DEANA CARVER CCDS Ot I10 ESSENTIAL (PRIMARY) HYPERTENSION 03/28/2016 DEANA MULLIGAN MD, FACC, FACP CCDS Ot R00.0 TACHYCARDIA, UNSPECIFIED 03/28/2016 ISAAK VANCE FACC, DEANA CARVER CCDS Ot R00.2 PALPITATIONS 08/03/2016 ISAAK MD FACC, ALI FACP CCDS Ot R00.2 PALPITATIONS 08/03/2016 ISAAK VANCE FAC, ALI FACP CCDS Ot I10 ESSENTIAL (PRIMARY) HYPERTENSION 08/03/2016 ISAAK VANCE FAC, ALI FACP CCDS Ot R00.0 TACHYCARDIA, UNSPECIFIED 08/03/2016 ISAAK VANCE FACC, ALI FACP CCDS Ot R00.2 PALPITATIONS 08/03/2016 ISAAK VANCE FAC, ALI FACP CCDS Ot R00.2 PALPITATIONS 08/03/2016 ISAAK VANCE [facility], ALI FACP CCDS Ot I10 ESSENTIAL (PRIMARY) HYPERTENSION 08/03/2016 ISAAK VANCE [facility], ALI FACP CCDS Ot R00.0 TACHYCARDIA, UNSPECIFIED 08/03/2016 ISAAK VANCE [facility], ALI FACP CCDS Ot R00.2 PALPITATIONS 08/03/2016 ANGIE MENENDEZ DOA K Ot E11.9 TYPE 2 DIABETES MELLITUS WITHOUT COMPLIC 08/03/2016 ANGIE MENENDEZ DOA K Ot F10.10 ALCOHOL ABUSE, UNCOMPLICATED 08/03/2016 SHON CLYDE K Ot F17.210 NICOTINE DEPENDENCE, CIGARETTES, UNCOMPL 08/03/2016 SHON CLYDE K Ot I10 ESSENTIAL (PRIMARY) HYPERTENSION 08/03/2016 ANGIE MENENDEZ DOA K Ot I47.1 SUPRAVENTRICULAR TACHYCARDIA 08/03/2016 ANGIE MENENDEZ DOA K Ot R07.9 CHEST PAIN, UNSPECIFIED 08/03/2016 ANGIE MENENDEZ DOA K Ot Y90.4 BLOOD ALCOHOL LEVEL OF 80-99 MG/100 ML 08/03/2016 ANGIE MENENDEZ DOA K Ot Z79.84 SLOT OPERATIONS DIRECTOR (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 OF ORAL HYPOGLYC 08/03/2016 ANGIE MENENDEZ DOA K Ot Z79.899 OTHER PENITENTIARY (CURRENT) DRUG THERAPY 08/03/2016 ANGIE MENENDEZ DOA K Ot Z86.79 PERSONAL HISTORY OF OTHER DISEASES OF TH 08/04/2016 CLYDE MENENDEZ DO K Ot E11.9 TYPE 2 DIABETES MELLITUS WITHOUT COMPLIC 08/04/2016 SHON DO CLYDE K Ot F10.10 ALCOHOL ABUSE, UNCOMPLICATED 08/04/2016 SHON CLYDE K Ot F17.210 NICOTINE DEPENDENCE, CIGARETTES, UNCOMPL 08/04/2016 SHON CLYDE K Ot I10 ESSENTIAL (PRIMARY) HYPERTENSION 08/04/2016 CLYDE MENENDEZ DO Ot I47.1 SUPRAVENTRICULAR TACHYCARDIA 08/04/2016 CLYDE MENENDEZ DO Ot R07.9 CHEST PAIN, UNSPECIFIED 08/04/2016 CLYDE MENENDEZ DO Ot Y90.4 BLOOD ALCOHOL LEVEL OF 80-99 MG/100 ML 08/04/2016 CLYDE MENENDEZ DO Ot Z79.84 PENITENTIARY (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 OF ORAL HYPOGLYC 08/04/2016 CLYDE MENENDEZ DO Ot Z79.899 OTHER PENITENTIARY (CURRENT) DRUG THERAPY 08/04/2016 CLYDE MENENDEZ DO Ot Z86.79 PERSONAL HISTORY OF OTHER DISEASES OF TH 08/15/2016 ISAAK VANCE FACC, DEANA FACP CCDS Ot R00.2 PALPITATIONS 08/15/2016 ISAAK VANCE FACC, ALI FACP CCDS Ot I10 ESSENTIAL (PRIMARY) HYPERTENSION 08/15/2016 ISAAK VANCE FACC, ALI FACP CCDS Ot R00.0 TACHYCARDIA, UNSPECIFIED 08/15/2016 ISAAK VANCE FACC, ALI FACP CCDS Ot R00.2 PALPITATIONS 08/15/2016 ISAAK VANCE FACC, ALI FACP CCDS Ot R00.2 PALPITATIONS 08/15/2016 ISAAK VANCE FACC, ALI FACP CCDS Ot I10 ESSENTIAL (PRIMARY) HYPERTENSION 08/15/2016 ISAAK VANCE FACC, ALI FACP CCDS Ot R00.0 TACHYCARDIA, UNSPECIFIED 08/15/2016 ISAAK VANCE FACC, ALI FACP CCDS Ot R00.2 PALPITATIONS 08/15/2016 ISAAK VANCE FACC, ALI FACP CCDS Ot E11.9 TYPE 2 DIABETES MELLITUS WITHOUT COMPLIC 08/15/2016 ISAAK VANCE FACC, ALI FACP CCDS Ot F17.210 NICOTINE DEPENDENCE, CIGARETTES, UNCOMPL 08/15/2016 ISAAK VANCE FACC, ALI FACP CCDS Ot I48.0 PAROXYSMAL ATRIAL FIBRILLATION 08/15/2016 ISAAK VANCE FACC, ALI FACP CCDS Ot R00.2 PALPITATIONS 08/15/2016 ISAAK VANCE FACC, ALI FACP CCDS Ot R06.00 DYSPNEA, UNSPECIFIED 08/15/2016 ISAAK VANCE FACC, ALI FACP CCDS Ot Z79.899 OTHER PENITENTIARY (CURRENT) DRUG THERAPY 08/18/2016 EDNA RUBALCAVA Ot E11.65 TYPE 2 DIABETES MELLITUS WITH HYPERGLYCE 08/18/2016 EDNA RUBALCAVA Ot I10 ESSENTIAL (PRIMARY) HYPERTENSION 08/18/2016 EDNA RUBALCAVA Ot I48.91 UNSPECIFIED ATRIAL FIBRILLATION 08/18/2016 EDNA RUBALCAVA Ot K76.0 FATTY (CHANGE OF) LIVER, NOT ELSEWHERE C 08/18/2016 EDNA RUBALCAVA Ot N13.2 HYDRONEPHROSIS WITH RENAL AND URETERAL C 08/18/2016 EDNA RUBALCAVA Ot R10.32 LEFT LOWER QUADRANT PAIN 08/18/2016 EDNA RUBALCAVA Ot Z79.84 SLOT OPERATIONS DIRECTOR (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 OF ORAL HYPOGLYC 08/18/2016 EDNA RUBALCAVA Ot Z79.899 OTHER SLOT OPERATIONS DIRECTOR (CURRENT) DRUG THERAPY 09/16/2016 ISAAK VANCE FACC, DEANA FACP CCDS Ot E11.9 TYPE 2 DIABETES MELLITUS WITHOUT COMPLIC 09/16/2016 ISAAK VANCE FACC, ALI FACP CCDS Ot F17.210 NICOTINE DEPENDENCE, CIGARETTES, UNCOMPL 09/16/2016 ISAAK VANCE FACC, ALI FACP CCDS Ot I48.0 PAROXYSMAL ATRIAL FIBRILLATION 09/16/2016 ISAAK VANCE FACC, ALI FACP CCDS Ot R00.2 PALPITATIONS 09/16/2016 ISAAK VANCE FACC, ALI FACP CCDS Ot R06.00 DYSPNEA, UNSPECIFIED 09/16/2016 ISAAK VANCE FACC, ALI FACP CCDS Ot Z79.899 OTHER PENITENTIARY (CURRENT) DRUG THERAPY 10/24/2016 ISAAK VANCE FACC, DEANA FACP CCDS Ot E11.9 TYPE 2 DIABETES MELLITUS WITHOUT COMPLIC 10/24/2016 ISAAK VANCE FACC, ALI FACP CCDS Ot F17.210 NICOTINE DEPENDENCE, CIGARETTES, UNCOMPL 10/24/2016 ISAAK VANCE FACC, ALI FACP CCDS Ot I48.0 PAROXYSMAL ATRIAL FIBRILLATION 10/24/2016 ISAAK VANCE FACC, ALI FACP CCDS Ot R00.2 PALPITATIONS 10/24/2016 ISAAK VANCE FACC, ALI FACP CCDS Ot R06.00 DYSPNEA, UNSPECIFIED 10/24/2016 ISAAK VANCE FACC, ALI FACP CCDS Ot Z79.899 OTHER SLOT OPERATIONS DIRECTOR (CURRENT) DRUG THERAPY 05/02/2017 WOLF DO HUNTER Ot E11.9 TYPE 2 DIABETES MELLITUS WITHOUT COMPLIC 05/02/2017 BLOOM DO HUNTER Ot E66.9 OBESITY, UNSPECIFIED 05/02/2017 BLOOM DO, HUNTER Ot E78.5 HYPERLIPIDEMIA, UNSPECIFIED 05/02/2017 BLOOM DO HUNTER Ot F17.210 NICOTINE DEPENDENCE, CIGARETTES, UNCOMPL 05/02/2017 WOLF DO HUNTER Ot I10 ESSENTIAL (PRIMARY) HYPERTENSION 05/02/2017 WOLF DO HUNTER Ot I21.4 NON-ST ELEVATION (NSTEMI) MYOCARDIAL INF 05/02/2017 WOLF DO HUNTER Ot I48.91 UNSPECIFIED ATRIAL FIBRILLATION 05/02/2017 WOLF TORRES HUNTER Ot J18.9 PNEUMONIA, UNSPECIFIED ORGANISM 05/02/2017 WOLF DO HUNTER Ot K21.9 GASTRO-ESOPHAGEAL REFLUX DISEASE WITHOUT 05/02/2017 WOLF DO HUNTER Ot Z68.33 BODY MASS INDEX (BMI) 33.0-33.9, ADULT 05/02/2017 WOLF TORRES HUNTER Ot E11.9 TYPE 2 DIABETES MELLITUS WITHOUT COMPLIC 05/02/2017 WOLF DO HUNTER Ot E66.9 OBESITY, UNSPECIFIED 05/02/2017 BLOOM DO HUNTER Ot E78.5 HYPERLIPIDEMIA, UNSPECIFIED 05/02/2017 WOLF DO HUNTER Ot F17.210 NICOTINE DEPENDENCE, CIGARETTES, UNCOMPL 05/02/2017 WOLF TORRES HUNTER Ot G47.33 OBSTRUCTIVE SLEEP APNEA (ADULT) (PEDIATR 05/02/2017 WOLF DO HUNTER Ot I10 ESSENTIAL (PRIMARY) HYPERTENSION 05/02/2017 WOLF TORRES HUNTER Ot I21.4 NON-ST ELEVATION (NSTEMI) MYOCARDIAL INF 05/02/2017 WOLF TORRES HUNTER Ot I25.10 ATHSCL HEART DISEASE OF [place] CORONARY 05/02/2017 WOLF DO HUNTER Ot I48.0 PAROXYSMAL ATRIAL FIBRILLATION 05/02/2017 WOLF DO HUNTER Ot I48.91 UNSPECIFIED ATRIAL FIBRILLATION 05/02/2017 WOLF TORRES HUNTER Ot J18.9 PNEUMONIA, UNSPECIFIED ORGANISM 05/02/2017 WOLF TORRES HUNTER Ot J44.9 CHRONIC OBSTRUCTIVE PULMONARY DISEASE, U 05/02/2017 HUNTER BLOOM DO Ot K21.9 GASTRO-ESOPHAGEAL REFLUX DISEASE WITHOUT 05/02/2017 BLOOM DO HUNTER Ot Z68.33 BODY MASS INDEX (BMI) 33.0-33.9, ADULT 05/02/2017 BLOOMHUNTER MONCADA DO Ot Z68.38 BODY MASS INDEX (BMI) 38.0-38.9, ADULT 05/02/2017 BLOOMHUNTER MONCADA DO Ot Z79.01 SLOT OPERATIONS DIRECTOR (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 OF ANTICOAGULANT 06/13/2017 ISAAK PONCEC, ALI FACP CCDS Ot R00.2 PALPITATIONS 06/13/2017 ISAAK VANCE FACC, ALI FACP CCDS Ot I10 ESSENTIAL (PRIMARY) HYPERTENSION 06/13/2017 ISAAK VANCE FACC, ALI FACP CCDS Ot R00.0 TACHYCARDIA, UNSPECIFIED 06/13/2017 ISAAK VANCE FACC, ALI FACP CCDS Ot R00.2 PALPITATIONS 06/13/2017 ISAAK VANCE FACC, ALI FACP CCDS Ot E78.4 OTHER HYPERLIPIDEMIA 06/13/2017 ISAAK VANCE FACC, ALI FACP CCDS Ot I25.10 ATHSCL HEART DISEASE OF [place] CORONARY 06/20/2017 ISAAK VANCE FACC, ALI FACP CCDS Ot E78.4 OTHER HYPERLIPIDEMIA 06/20/2017 ISAAK VANCE FACC, ALI FACP CCDS Ot I25.10 ATHSCL HEART DISEASE OF [place] CORONARY 06/20/2017 ISAAK VANCE FACC, ALI FACP CCDS Ot E78.4 OTHER HYPERLIPIDEMIA 06/20/2017 ISAAK VANCE FACC, ALI FACP CCDS Ot I25.10 ATHSCL HEART DISEASE OF [place] CORONARY Procedures Code Description Performed By Performed On [id number] DILATION OF 1 COR ART WITH DRUG-ELUT INT 04/30/2017 [id number] MEASURE OF CARDIAC SAMPL PRESSURE, L H 04/30/2017 [id number] MEASUREMENT OF ARTERIAL PRESSURE, CENTENO 04/30/2017 [id number] FLUOROSCOPY OF MULT COR ART USING L OSM 04/30/2017 [id number] FLUOROSCOPY OF R LOW EXTREM ART USING L 04/30/2017 [id number] DILATION OF 1 COR ART WITH DRUG-ELUT INT 05/01/2017 [id number] FLUOROSCOPY OF SINGLE CORONARY ARTERY US 05/01/2017 [id number] FLUOROSCOPY OF AORTA, BI LE ART USING L 05/01/2017 [id number] FLUOROSCOPY OF R LOW EXTREM ART USING L 05/01/2017 Results Test Result Range Comp. Metabolic Panel (14) - 07/11/16 08:51 Glucose, Serum 132 mg/dL 65-99 BUN 17 mg/dL 6-24 Creatinine, Serum 0.84 mg/dL 0.76-1.27 eGFR If NonAfricn Am 104 mL/min/1.73 >59 eGFR If Africn Am 120 mL/min/1.73 >59 BUN/Creatinine Ratio 20 9-20 Sodium, Serum 141 mmol/L 134-144 Potassium, Serum 4.8 mmol/L 3.5-5.2 Chloride, Serum 99 mmol/L 97-108 Carbon Dioxide, Total 26 mmol/L 18-29 Calcium, Serum 9.6 mg/dL 8.7-10.2 Protein, Total, Serum 7.3 g/dL 6.0-8.5 Albumin, Serum 4.4 g/dL 3.5-5.5 Globulin, Total 2.9 g/dL 1.5-4.5 A/G Ratio 1.5 1.1-2.5 Bilirubin, Total 0.2 mg/dL 0.0-1.2 Alkaline Phosphatase, S 72 IU/L 39-117 AST (SGOT) 25 IU/L 0-40 ALT (SGPT) 27 IU/L 0-44 Lipid Panel - 07/11/16 08:51 Cholesterol, Total 200 mg/dL 100-199 Triglycerides 327 mg/dL 0-149 HDL Cholesterol 28 mg/dL >39 VLDL Cholesterol Bandar 65 mg/dL 5-40 LDL Cholesterol Calc 107 mg/dL 0-99 Serum or plasma ethanol measurement (mass/volume) - 08/03/16 19:30 Serum or plasma ethanol measurement (mass/volume) 99 mg/dL <10 Complete blood count (CBC) with automated white blood cell (WBC) differential - 08/03/16 19:35 Blood leukocytes automated count (number/volume) 11.6 10*3/uL 4.3-11.0 Blood erythrocytes automated count (number/volume) 4.77 10*6/uL 4.35-5.85 Venous blood hemoglobin measurement (mass/volume) 13.5 g/dL 13.3-17.7 Blood hematocrit (volume fraction) 40 % 40-54 Automated erythrocyte mean corpuscular volume 84 [foz_us] 80-99 Automated erythrocyte mean corpuscular hemoglobin (mass per erythrocyte) 28 pg 25-34 Automated erythrocyte mean corpuscular hemoglobin concentration measurement ( mass/volume) 34 g/dL 32-36 Automated erythrocyte distribution width ratio 13.9 % 10.0-14.5 Automated blood platelet count (count/volume) 338 10*3/uL 130-400 Automated blood platelet mean volume measurement 9.8 [foz_us] 7.4-10.4 Automated blood neutrophils/100 leukocytes 68 % 42-75 Automated blood lymphocytes/100 leukocytes 19 % 12-44 Blood monocytes/100 leukocytes 8 % 0-12 Automated blood eosinophils/100 leukocytes 4 % 0-10 Automated blood basophils/100 leukocytes 0 % 0-10 Blood neutrophils automated count (number/volume) 7.9 10*3 1.8-7.8 Blood lymphocytes automated count (number/volume) 2.3 10*3 1.0-4.0 Blood monocytes automated count (number/volume) 1.0 10*3 0.0-1.0 Automated eosinophil count 0.4 10*3/uL 0.0-0.3 Automated blood basophil count (count/volume) 0.0 10*3/uL 0.0-0.1 PT panel in platelet poor plasma by coagulation assay - 08/03/16 19:35 Prothrombin time (PT) in platelet poor plasma by coagulation assay 13.4 s 12.2-14.7 INR in platelet poor plasma or blood by coagulation assay 1.1 0.8-1.4 Activated partial thromboplastin time (aPTT) in platelet poor plasma bycoagulation assay - 08/03/16 19:35 Activated partial thromboplastin time (aPTT) in platelet poor plasma bycoagulation assay 32 s 24-35 Comprehensive metabolic panel - 08/03/16 19:35 Serum or plasma sodium measurement (moles/volume) 139 mmol/L 135-145 Serum or plasma potassium measurement (moles/volume) 3.2 mmol/L 3.6-5.0 Serum or plasma chloride measurement (moles/volume) 105 mmol/L 98-107 Carbon dioxide 24 mmol/L 21-32 Serum or plasma anion gap determination (moles/volume) 10 mmol/L 5-14 Serum or plasma urea nitrogen measurement (mass/volume) 14 mg/dL 7-18 Serum or plasma creatinine measurement (mass/volume) 0.87 mg/dL 0.60-1.30 Serum or plasma urea nitrogen/creatinine mass ratio 16 NRG Serum or plasma creatinine measurement with calculation of estimated glomerular filtration rate > NRG Serum or plasma glucose measurement (mass/volume) 158 mg/dL 70-105 Serum or plasma calcium measurement (mass/volume) 9.7 mg/dL 8.5-10.1 Serum or plasma total bilirubin measurement (mass/volume) 0.2 mg/dL 0.1-1.0 Serum or plasma alkaline phosphatase measurement (enzymatic activity/volume) 65 U/L 40-136 Serum or plasma aspartate aminotransferase measurement (enzymatic activity/ volume) 47 U/L 5-34 Serum or plasma alanine aminotransferase measurement (enzymatic activity/volume ) 59 U/L 0-55 Serum or plasma protein measurement (mass/volume) 7.5 g/dL 6.4-8.2 Serum or plasma albumin measurement (mass/volume) 4.3 g/dL 3.2-4.5 Magnesium - 08/03/16 19:35 Magnesium 2.0 mg/dL 1.8-2.4 Serum or plasma creatine kinase measurement (enzymatic activity/volume) - 08/03 19:35 Serum or plasma creatine kinase measurement (enzymatic activity/volume) 124 U/L 30-200 Serum or plasma creatine kinase MB measurement (enzymatic activity/volume) - 19:35 Serum or plasma creatine kinase MB measurement (enzymatic activity/volume) 0.8 ng/mL <6.6 Serum or plasma troponin i.cardiac measurement (mass/volume) - 08/03/16 19:35 Serum or plasma troponin i.cardiac measurement (mass/volume) < ng/ mL <0.30 Serum or plasma lithium measurement (moles/volume) - 08/03/16 19:35 BNP level 11.1 pg/mL <100.0 Serum or plasma amylase measurement (enzymatic activity/volume) - 08/03/16 19: 35 Serum or plasma amylase measurement (enzymatic activity/volume) 54 U /L 25-125 Lipase - 08/03/16 19:35 Lipase 54 U/L 8-78 Serum or plasma thyrotropin measurement by detection limit <=0.05 miu/l (units/ volume) - 08/03/16 19:35 Serum or plasma thyrotropin measurement by detection limit <=0.05 miu/l (units/ volume) 2.30 u[iU]/mL 0.35-4.94 Complete blood count (CBC) with automated white blood cell (WBC) differential - 08/18/16 14:20 Blood leukocytes automated count (number/volume) 12.0 10*3/uL 4.3-11.0 Blood erythrocytes automated count (number/volume) 5.22 10*6/uL 4.35-5.85 Venous blood hemoglobin measurement (mass/volume) 14.7 g/dL 13.3-17.7 Blood hematocrit (volume fraction) 44 % 40-54 Automated erythrocyte mean corpuscular volume 83 [foz_us] 80-99 Automated erythrocyte mean corpuscular hemoglobin (mass per erythrocyte) 28 pg 25-34 Automated erythrocyte mean corpuscular hemoglobin concentration measurement ( mass/volume) 34 g/dL 32-36 Automated erythrocyte distribution width ratio 14.2 % 10.0-14.5 Automated blood platelet count (count/volume) 368 10*3/uL 130-400 Automated blood platelet mean volume measurement 10.5 [foz_us] 7.4-10.4 Automated blood neutrophils/100 leukocytes 67 % 42-75 Automated blood lymphocytes/100 leukocytes 22 % 12-44 Blood monocytes/100 leukocytes 6 % 0-12 Automated blood eosinophils/100 leukocytes 5 % 0-10 Automated blood basophils/100 leukocytes 0 % 0-10 Blood neutrophils automated count (number/volume) 8.0 10*3 1.8-7.8 Blood lymphocytes automated count (number/volume) 2.6 10*3 1.0-4.0 Blood monocytes automated count (number/volume) 0.8 10*3 0.0-1.0 Automated eosinophil count 0.7 10*3/uL 0.0-0.3 Automated blood basophil count (count/volume) 0.0 10*3/uL 0.0-0.1 Comprehensive metabolic panel - 08/18/16 14:20 Serum or plasma sodium measurement (moles/volume) 135 mmol/L 135-145 Serum or plasma potassium measurement (moles/volume) 4.3 mmol/L 3.6-5.0 Serum or plasma chloride measurement (moles/volume) 101 mmol/L 98-107 Carbon dioxide 23 mmol/L 21-32 Serum or plasma anion gap determination (moles/volume) 11 mmol/L 5-14 Serum or plasma urea nitrogen measurement (mass/volume) 22 mg/dL 7-18 Serum or plasma creatinine measurement (mass/volume) 1.07 mg/dL 0.60-1.30 Serum or plasma urea nitrogen/creatinine mass ratio 21 NRG Serum or plasma creatinine measurement with calculation of estimated glomerular filtration rate > NRG Serum or plasma glucose measurement (mass/volume) 316 mg/dL 70-105 Serum or plasma calcium measurement (mass/volume) 9.3 mg/dL 8.5-10.1 Serum or plasma total bilirubin measurement (mass/volume) 0.4 mg/dL 0.1-1.0 Serum or plasma alkaline phosphatase measurement (enzymatic activity/volume) 83 U/L 40-136 Serum or plasma aspartate aminotransferase measurement (enzymatic activity/ volume) 54 U/L 5-34 Serum or plasma alanine aminotransferase measurement (enzymatic activity/volume ) 53 U/L 0-55 Serum or plasma protein measurement (mass/volume) 7.9 g/dL 6.4-8.2 Serum or plasma albumin measurement (mass/volume) 4.4 g/dL 3.2-4.5 Complete urinalysis with reflex to culture - 08/18/16 14:30 Urine color determination YELLOW NRG Urine clarity determination VERY CLOUDY NRG Urine pH measurement by test strip 5 5-9 Specific gravity of urine by test strip 1.025 1.016- 1.022 Urine protein assay by test strip, semi-quantitative 3+ NEGATIVE Urine glucose detection by automated test strip 4+ NEGATIVE Erythrocytes detection in urine sediment by light microscopy 5+ NEGATIVE Urine ketones detection by automated test strip 1+ NEGATIVE Urine nitrite detection by test strip POSITIVE NEGATIVE Urine total bilirubin detection by test strip 1+ NEGATIVE Urine urobilinogen measurement by automated test strip (mass/volume) 1 mg/dL NORMAL Urine leukocyte esterase detection by dipstick 1+ NEGATIVE Automated urine sediment erythrocyte count by microscopy (number/high power field) TNTC NRG Automated urine sediment leukocyte count by microscopy (number/high power field ) [HPF] NRG Bacteria detection in urine sediment by light microscopy NEGATIVE NRG Crystals detection in urine sediment by light microscopy PRESENT NRG Casts detection in urine sediment by light microscopy NONE NRG Mucus detection in urine sediment by light microscopy NEGATIVE NRG Complete urinalysis with reflex to culture NO NRG Amorphous sediment detection in urine sediment by light microscopy LARGE ALICIA URATES NRG Calculi, Urinary - 09/07/16 14:56 Color Brown Size 5x4x3 mm Weight 51.4 mg Composition Comment Ca oxalate dihydrate 10 % Ca oxalate monohydr. 70 % Calcium phosphate 20 % Nidus No Nidus visualized Please note: Comment Comment: Comment Disclaimer: Comment CBC With Differential/Platelet - 03/16/17 11:03 WBC 9.2 x10E3/uL 3.4-10.8 RBC 5.25 x10E6/uL 4.14-5.80 Hemoglobin 14.8 g/dL 12.6-17.7 Hematocrit 43.1 % 37.5-51.0 MCV 82 fL 79-97 MCH 28.2 pg 26.6-33.0 MCHC 34.3 g/dL 31.5-35.7 RDW 14.1 % 12.3-15.4 Platelets 334 x10E3/uL 150-379 Neutrophils 69 % Lymphs 20 % Monocytes 8 % Eos 3 % Basos 0 % Neutrophils (Absolute) 6.3 x10E3/uL 1.4-7.0 Lymphs (Absolute) 1.9 x10E3/uL 0.7-3.1 Monocytes(Absolute) 0.7 x10E3/uL 0.1-0.9 Eos (Absolute) 0.3 x10E3/uL 0.0-0.4 Baso (Absolute) 0.0 x10E3/uL 0.0-0.2 Immature Granulocytes 0 % Immature Grans (Abs) 0.0 x10E3/uL 0.0-0.1 Comp. Metabolic Panel (14) - 03/16/17 11:03 Glucose, Serum 215 mg/dL 65-99 BUN 16 mg/dL 6-24 Creatinine, Serum 0.72 mg/dL 0.76-1.27 eGFR If NonAfricn Am 110 mL/min/1.73 >59 eGFR If Africn Am 127 mL/min/1.73 >59 BUN/Creatinine Ratio 22 9-20 Sodium, Serum 137 mmol/L 134-144 Potassium, Serum 4.5 mmol/L 3.5-5.2 Chloride, Serum 96 mmol/L 96-106 Carbon Dioxide, Total 21 mmol/L 18-29 Calcium, Serum 9.4 mg/dL 8.7-10.2 Protein, Total, Serum 7.1 g/dL 6.0-8.5 Albumin, Serum 4.2 g/dL 3.5-5.5 Globulin, Total 2.9 g/dL 1.5-4.5 A/G Ratio 1.4 1.2-2.2 Bilirubin, Total 0.2 mg/dL 0.0-1.2 Alkaline Phosphatase, S 81 IU/L 39-117 AST (SGOT) 17 IU/L 0-40 ALT (SGPT) 23 IU/L 0-44 Lipid Panel - 03/16/17 11:03 Cholesterol, Total 253 mg/dL 100-199 Triglycerides 769 mg/dL 0-149 HDL Cholesterol 26 mg/dL >39 VLDL Cholesterol Bandar Comment mg/dL 5-40 LDL Cholesterol Calc Comment mg/dL 0-99 Folate (Folic Acid), Serum - 03/16/17 11:03 Folate (Folic Acid), Serum 5.0 ng/mL >3.0 TSH - 03/16/17 11:03 TSH 2.430 uIU/mL 0.450-4.500 Vitamin D, 25-Hydroxy - 03/16/17 11:03 Vitamin D, 25-Hydroxy 5.1 ng/mL 30.0-100.0 Vitamin B12 - 03/16/17 11:03 Vitamin B12 530 pg/mL 211-946 Complete blood count (CBC) with automated white blood cell (WBC) differential - 04/30/17 15:40 Blood leukocytes automated count (number/volume) 13.9 10*3/uL 4.3-11.0 Blood erythrocytes automated count (number/volume) 5.48 10*6/uL 4.35-5.85 Venous blood hemoglobin measurement (mass/volume) 14.7 g/dL 13.3-17.7 Blood hematocrit (volume fraction) 44 % 40-54 Automated erythrocyte mean corpuscular volume 81 [foz_us] 80-99 Automated erythrocyte mean corpuscular hemoglobin (mass per erythrocyte) 27 pg 25-34 Automated erythrocyte mean corpuscular hemoglobin concentration measurement ( mass/volume) 33 g/dL 32-36 Automated erythrocyte distribution width ratio 14.1 % 10.0-14.5 Automated blood platelet count (count/volume) 364 10*3/uL 130-400 Automated blood platelet mean volume measurement 10.4 [foz_us] 7.4-10.4 Automated blood neutrophils/100 leukocytes 76 % 42-75 Automated blood lymphocytes/100 leukocytes 15 % 12-44 Blood monocytes/100 leukocytes 8 % 0-12 Automated blood eosinophils/100 leukocytes 1 % 0-10 Automated blood basophils/100 leukocytes 0 % 0-10 Blood neutrophils automated count (number/volume) 10.6 10*3 1.8-7.8 Blood lymphocytes automated count (number/volume) 2.1 10*3 1.0-4.0 Blood monocytes automated count (number/volume) 1.1 10*3 0.0-1.0 Automated eosinophil count 0.2 10*3/uL 0.0-0.3 Automated blood basophil count (count/volume) 0.0 10*3/uL 0.0-0.1 PT panel in platelet poor plasma by coagulation assay - 04/30/17 15:40 Prothrombin time (PT) in platelet poor plasma by coagulation assay 14.2 s 12.2-14.7 INR in platelet poor plasma or blood by coagulation assay 1.1 0.8-1.4 Activated partial thromboplastin time (aPTT) in platelet poor plasma bycoagulation assay - 04/30/17 15:40 Activated partial thromboplastin time (aPTT) in platelet poor plasma bycoagulation assay 35 s 24-35 Fibrin D-dimer FEU measurement in platelet poor plasma (mass/volume) - 15:40 Fibrin D-dimer FEU measurement in platelet poor plasma (mass/volume) 0.30 ug/mL 0.00-0.49 Comprehensive metabolic panel - 04/30/17 15:40 Serum or plasma sodium measurement (moles/volume) 137 mmol/L 135-145 Serum or plasma potassium measurement (moles/volume) 4.3 mmol/L 3.6-5.0 Serum or plasma chloride measurement (moles/volume) 101 mmol/L 98-107 Carbon dioxide 27 mmol/L 21-32 Serum or plasma anion gap determination (moles/volume) 9 mmol/L 5-14 Serum or plasma urea nitrogen measurement (mass/volume) 15 mg/dL 7-18 Serum or plasma creatinine measurement (mass/volume) 0.97 mg/dL 0.60-1.30 Serum or plasma urea nitrogen/creatinine mass ratio 15 NRG Serum or plasma creatinine measurement with calculation of estimated glomerular filtration rate > NRG Serum or plasma glucose measurement (mass/volume) 225 mg/dL 70-105 Serum or plasma calcium measurement (mass/volume) 9.6 mg/dL 8.5-10.1 Serum or plasma total bilirubin measurement (mass/volume) 0.3 mg/dL 0.1-1.0 Serum or plasma alkaline phosphatase measurement (enzymatic activity/volume) 93 U/L 40-136 Serum or plasma aspartate aminotransferase measurement (enzymatic activity/ volume) 34 U/L 5-34 Serum or plasma alanine aminotransferase measurement (enzymatic activity/volume ) 24 U/L 0-55 Serum or plasma protein measurement (mass/volume) 7.6 g/dL 6.4-8.2 Serum or plasma albumin measurement (mass/volume) 4.1 g/dL 3.2-4.5 Magnesium - 04/30/17 15:40 Magnesium 1.8 mg/dL 1.8-2.4 Serum or plasma troponin i.cardiac measurement (mass/volume) - 04/30/17 15:40 Serum or plasma troponin i.cardiac measurement (mass/volume) 2.71 ng /mL <0.30 Myoglobin, serum - 04/30/17 15:40 Myoglobin, serum 71.5 ng/mL 10.0-92.0 Bacterial blood culture - 04/30/17 18:00 Bacterial blood culture NG NRG Blood lactic acid measurement (moles/volume) - 04/30/17 18:21 Blood lactic acid measurement (moles/volume) 0.95 mmol/L 0.50-2.00 Bacterial blood culture - 04/30/17 18:21 Bacterial blood culture NG NRG Activated partial thromboplastin time (aPTT) in platelet poor plasma bycoagulation assay - 05/01/17 00:20 Activated partial thromboplastin time (aPTT) in platelet poor plasma bycoagulation assay 79 s 24-35 Complete blood count (CBC) with automated white blood cell (WBC) differential - 05/01/17 02:03 Blood leukocytes automated count (number/volume) 10.7 10*3/uL 4.3-11.0 Blood erythrocytes automated count (number/volume) 4.94 10*6/uL 4.35-5.85 Venous blood hemoglobin measurement (mass/volume) 13.0 g/dL 13.3-17.7 Blood hematocrit (volume fraction) 40 % 40-54 Automated erythrocyte mean corpuscular volume 81 [foz_us] 80-99 Automated erythrocyte mean corpuscular hemoglobin (mass per erythrocyte) 26 pg 25-34 Automated erythrocyte mean corpuscular hemoglobin concentration measurement ( mass/volume) 32 g/dL 32-36 Automated erythrocyte distribution width ratio 14.1 % 10.0-14.5 Automated blood platelet count (count/volume) 326 10*3/uL 130-400 Automated blood platelet mean volume measurement 9.9 [foz_us] 7.4-10.4 Automated blood neutrophils/100 leukocytes 64 % 42-75 Automated blood lymphocytes/100 leukocytes 24 % 12-44 Blood monocytes/100 leukocytes 10 % 0-12 Automated blood eosinophils/100 leukocytes 2 % 0-10 Automated blood basophils/100 leukocytes 0 % 0-10 Blood neutrophils automated count (number/volume) 6.8 10*3 1.8-7.8 Blood lymphocytes automated count (number/volume) 2.6 10*3 1.0-4.0 Blood monocytes automated count (number/volume) 1.0 10*3 0.0-1.0 Automated eosinophil count 0.2 10*3/uL 0.0-0.3 Automated blood basophil count (count/volume) 0.0 10*3/uL 0.0-0.1 Activated partial thromboplastin time (aPTT) in platelet poor plasma bycoagulation assay - 05/01/17 02:03 Activated partial thromboplastin time (aPTT) in platelet poor plasma bycoagulation assay 34 s 24-35 Comprehensive metabolic panel - 05/01/17 02:03 Serum or plasma sodium measurement (moles/volume) 138 mmol/L 135-145 Serum or plasma potassium measurement (moles/volume) 4.0 mmol/L 3.6-5.0 Serum or plasma chloride measurement (moles/volume) 104 mmol/L 98-107 Carbon dioxide 19 mmol/L 21-32 Serum or plasma anion gap determination (moles/volume) 15 mmol/L 5-14 Serum or plasma urea nitrogen measurement (mass/volume) 12 mg/dL 7-18 Serum or plasma creatinine measurement (mass/volume) 1.00 mg/dL 0.60-1.30 Serum or plasma urea nitrogen/creatinine mass ratio 12 NRG Serum or plasma creatinine measurement with calculation of estimated glomerular filtration rate > NRG Serum or plasma glucose measurement (mass/volume) 126 mg/dL 70-105 Serum or plasma calcium measurement (mass/volume) 8.5 mg/dL 8.5-10.1 Serum or plasma total bilirubin measurement (mass/volume) 0.5 mg/dL 0.1-1.0 Serum or plasma alkaline phosphatase measurement (enzymatic activity/volume) 84 U/L 40-136 Serum or plasma aspartate aminotransferase measurement (enzymatic activity/ volume) 39 U/L 5-34 Serum or plasma alanine aminotransferase measurement (enzymatic activity/volume ) 24 U/L 0-55 Serum or plasma protein measurement (mass/volume) 6.8 g/dL 6.4-8.2 Serum or plasma albumin measurement (mass/volume) 3.7 g/dL 3.2-4.5 Serum or plasma phosphate measurement (mass/volume) - 05/01/17 02:03 Serum or plasma phosphate measurement (mass/volume) 3.6 mg/dL 2.3-4.7 Magnesium - 05/01/17 02:03 Magnesium 1.7 mg/dL 1.8-2.4 Lipid 1996 panel - 05/01/17 02:03 Serum or plasma triglyceride measurement (mass/volume) 230 mg/dL <150 Serum or plasma cholesterol measurement (mass/volume) 124 mg/dL < 200 Serum or plasma cholesterol in HDL measurement (mass/volume) 22 mg/ dL 40-60 Cholesterol in LDL [mass/volume] in serum or plasma by direct assay 75 mg/dL 1-129 Serum or plasma cholesterol in VLDL measurement (mass/volume) 46 mg/ dL 5-40 Serum or plasma troponin i.cardiac measurement (mass/volume) - 05/01/17 02:03 Serum or plasma troponin i.cardiac measurement (mass/volume) 12.91 ng/mL <0.30 Capillary blood glucose measurement by glucometer (mass/volume) - 05/01/17 11: 16 Capillary blood glucose measurement by glucometer (mass/volume) 168 mg/dL 70-110 Capillary blood glucose measurement by glucometer (mass/volume) - 05/01/17 16: 03 Capillary blood glucose measurement by glucometer (mass/volume) 222 mg/dL 70-110 Capillary blood glucose measurement by glucometer (mass/volume) - 05/01/17 21: 18 Capillary blood glucose measurement by glucometer (mass/volume) 147 mg/dL 70-110 Complete blood count (CBC) with automated white blood cell (WBC) differential - 05/02/17 03:34 Blood leukocytes automated count (number/volume) 10.1 10*3/uL 4.3-11.0 Blood erythrocytes automated count (number/volume) 4.34 10*6/uL 4.35-5.85 Venous blood hemoglobin measurement (mass/volume) 11.5 g/dL 13.3-17.7 Blood hematocrit (volume fraction) 35 % 40-54 Automated erythrocyte mean corpuscular volume 82 [foz_us] 80-99 Automated erythrocyte mean corpuscular hemoglobin (mass per erythrocyte) 27 pg 25-34 Automated erythrocyte mean corpuscular hemoglobin concentration measurement ( mass/volume) 33 g/dL 32-36 Automated erythrocyte distribution width ratio 14.0 % 10.0-14.5 Automated blood platelet count (count/volume) 289 10*3/uL 130-400 Automated blood platelet mean volume measurement 10.3 [foz_us] 7.4-10.4 Automated blood neutrophils/100 leukocytes 72 % 42-75 Automated blood lymphocytes/100 leukocytes 18 % 12-44 Blood monocytes/100 leukocytes 8 % 0-12 Automated blood eosinophils/100 leukocytes 2 % 0-10 Automated blood basophils/100 leukocytes 0 % 0-10 Blood neutrophils automated count (number/volume) 7.3 10*3 1.8-7.8 Blood lymphocytes automated count (number/volume) 1.8 10*3 1.0-4.0 Blood monocytes automated count (number/volume) 0.8 10*3 0.0-1.0 Automated eosinophil count 0.2 10*3/uL 0.0-0.3 Automated blood basophil count (count/volume) 0.0 10*3/uL 0.0-0.1 Whole blood basic metabolic panel - 05/02/17 03:34 Serum or plasma sodium measurement (moles/volume) 138 mmol/L 135-145 Serum or plasma potassium measurement (moles/volume) 4.1 mmol/L 3.6-5.0 Serum or plasma chloride measurement (moles/volume) 106 mmol/L 98-107 Carbon dioxide 23 mmol/L 21-32 Serum or plasma anion gap determination (moles/volume) 9 mmol/L 5-14 Serum or plasma urea nitrogen measurement (mass/volume) 11 mg/dL 7-18 Serum or plasma creatinine measurement (mass/volume) 0.91 mg/dL 0.60-1.30 Serum or plasma urea nitrogen/creatinine mass ratio 12 NRG Serum or plasma creatinine measurement with calculation of estimated glomerular filtration rate > NRG Serum or plasma glucose measurement (mass/volume) 133 mg/dL 70-105 Serum or plasma calcium measurement (mass/volume) 8.5 mg/dL 8.5-10.1 Serum or plasma phosphate measurement (mass/volume) - 05/02/17 03:34 Serum or plasma phosphate measurement (mass/volume) 4.5 mg/dL 2.3-4.7 Magnesium - 05/02/17 03:34 Magnesium 1.8 mg/dL 1.8-2.4 Serum or plasma troponin i.cardiac measurement (mass/volume) - 05/02/17 03:34 Serum or plasma troponin i.cardiac measurement (mass/volume) 3.87 ng /mL <0.30 Comprehensive metabolic panel - 06/12/17 07:45 Serum or plasma sodium measurement (moles/volume) 139 mmol/L 135-145 Serum or plasma potassium measurement (moles/volume) 4.1 mmol/L 3.6-5.0 Serum or plasma chloride measurement (moles/volume) 103 mmol/L 98-107 Carbon dioxide 24 mmol/L 21-32 Serum or plasma anion gap determination (moles/volume) 12 mmol/L 5-14 Serum or plasma urea nitrogen measurement (mass/volume) 15 mg/dL 7-18 Serum or plasma creatinine measurement (mass/volume) 0.93 mg/dL 0.60-1.30 Serum or plasma urea nitrogen/creatinine mass ratio 16 NRG Serum or plasma creatinine measurement with calculation of estimated glomerular filtration rate > NRG Serum or plasma glucose measurement (mass/volume) 143 mg/dL 70-105 Serum or plasma calcium measurement (mass/volume) 9.3 mg/dL 8.5-10.1 Serum or plasma total bilirubin measurement (mass/volume) 0.4 mg/dL 0.1-1.0 Serum or plasma alkaline phosphatase measurement (enzymatic activity/volume) 97 U/L 40-136 Serum or plasma aspartate aminotransferase measurement (enzymatic activity/ volume) 14 U/L 5-34 Serum or plasma alanine aminotransferase measurement (enzymatic activity/volume ) 16 U/L 0-55 Serum or plasma protein measurement (mass/volume) 7.2 g/dL 6.4-8.2 Serum or plasma albumin measurement (mass/volume) 3.9 g/dL 3.2-4.5 Lipid 1996 panel - 06/12/17 07:45 Serum or plasma triglyceride measurement (mass/volume) 407 mg/dL <150 Serum or plasma cholesterol measurement (mass/volume) 153 mg/dL < 200 Serum or plasma cholesterol in HDL measurement (mass/volume) 26 mg/ dL 40-60 Cholesterol in LDL [mass/volume] in serum or plasma by direct assay 72 mg/dL 1-129 Serum or plasma cholesterol in VLDL measurement (mass/volume) 81 mg/ dL 5-40 MICROALBUMIN/CREATININE RATIO, URINE - 11/16/17 10:52 CREATININE, RANDOM URINE 237 mg/dL 20-370 MICROALBUMIN 19.1 mg/dL See Note: MICROALBUMIN/CREATININE RATIO, RANDOM URINE 81 mcg/mg creat <30 Encounters ACCT No. Visit Date/Time Discharge Status Pt. Type Provider Facility Loc./Unit Complaint [id number] 06/12/2017 07:28:00 06/12/2017 23:59:59 CLS Outpatient DEANA MULLIGAN MD, FACC, FACP CCDS [facility] LAB I25.10,E78.4 [id number] 04/30/2017 17:47:00 05/02/2017 12:30:00 DIS Inpatient BLOOM DO HUNTER [facility] ICU NSTEMI,LEFT BASILAR PNA [id number] 08/18/2016 14:06:00 08/18/2016 16:46:00 DIS Emergency EDNA RUBALCAVA [facility] ER POSS KIDNEY STONE/ UNABLE TO URINATE [id number] 08/15/2016 12:15:00 08/15/2016 14:00:00 DIS Outpatient DEANA MULLIGAN MD, FACC, FACP CCDS [facility] CATH PALPITATIONS, PAF [id number] 08/03/2016 19:22:00 08/03/2016 21:28:00 DIS Emergency CLYDE MENENDEZ DO [facility] ER CP [id number] 10/21/2015 06:53:00 10/21/2015 23:59:59 CLS Outpatient DEANA MULLIGAN MD, FACC, FACP CCDS [facility] CARD HTN, TACHYCARDIA,PALPITATIONS [id number] 10/20/2015 11:42:00 10/20/2015 23:59:59 CLS Outpatient ISAAK VANCE FACC, DEANA CARVER CCDS [facility] CARD HTN, TACHYCARDIA [id number] 05/03/2015 05:23:00 05/03/2015 07:12:00 DIS Emergency MELONIE RUIZ DO [facility] ER L HIP PAIN [id number] 04/05/2015 17:38:00 04/05/2015 18:30:00 DIS Emergency MARKUS GONZALEZ IGNITION SPECIALIST [facility] ER [id number] 01/10/2015 21:31:00 01/10/2015 22:29:00 DIS Emergency CHAPO WATTS MD [facility] ER [id number] 01/10/2015 21:31:00 Document Registration [id number] 05/12/2012 19:00:00 Document Registration [id number] 09/12/2016 18:05:00 Document Registration [id number] 07/12/2016 10:05:00 Document Registration [id number] 03/19/2017 11:07:00 Document Registration [id number] 02/19/2018 09:20:00 02/19/2018 23:59:59 CLS Outpatient DUNIA SANTOS MD [facility] [id number] 11/16/2017 08:40:00 Document Registration
[2018-05-20] MEDS ORDERED: NITROGLYCERIN 0.4 MG SL TABS BTL 25'S SL PRN ×2 (15:00→17:30)
[2018-05-20] MEDS ORDERED: ASPIRIN 81 MG CHEW (CHILDREN'S ASA) PO ONE (15:00)
[2018-05-20] MEDS ORDERED: NS IV 1000 ML 1,000 ML ONE (15:02)
[2018-05-20 15:10] LABS: BASOPHILS % (AUTO) 0 % (0-10); EOSINOPHILS # (AUTO) 0.3 10^3/uL (0.0-0.3); EOSINOPHILS % (AUTO) 2 % (0-10); HEMATOCRIT 46 % (40-54); HEMOGLOBIN 16.1 G/DL (13.3-17.7); LYMPHOCYTES # (AUTO) 2.7 X 10^3 (1.0-4.0); LYMPHOCYTES % (AUTO) 25 % (12-44); MEAN CORPUSCULAR HEMOGLOBIN 27 PG (25-34); MEAN CORPUSCULAR HGB CONC 35 G/DL (32-36); MEAN CORPUSCULAR VOLUME 78 FL (80-99); MEAN PLATELET VOLUME 10.5 FL (7.4-10.4); MONOCYTES % (AUTO) 9 % (0-12); NEUTROPHILS # (AUTO) 6.9 X 10^3 (1.8-7.8); NEUTROPHILS % (AUTO) 64 % (42-75); PLATELET COUNT 350 10^3/uL (130-400); RED BLOOD COUNT 5.93 10^6/uL (4.35-5.85); RED CELL DISTRIBUTION WIDTH 14.9 % (10.0-14.5); WHITE BLOOD COUNT 10.8 10^3/uL (4.3-11.0)
[2018-05-20] MEDS ORDERED: NS IV 1000 ML 1,000 ML IV ONE (15:11)
[2018-05-20 15:17] LABS: INR 1.1 (0.8-1.4); PROTHROMBIN TIME PATIENT 13.9 SEC (12.2-14.7)
[2018-05-20 15:27] LABS: ALANINE AMINOTRANSFERASE 24 U/L (0-55); ALBUMIN 4.5 GM/DL (3.2-4.5); ALKALINE PHOSPHATASE 117 U/L (40-136); BILIRUBIN,TOTAL 0.5 MG/DL (0.1-1.0); BUN/CREATININE RATIO 14; CALCIUM 9.5 MG/DL (8.5-10.1); CARBON DIOXIDE 24 MMOL/L (21-32); CHLORIDE 99 MMOL/L (98-107); CREATININE SERUM 1.03 MG/DL (0.60-1.30); GFR ESTIMATED > 60; GLUCOSE 320 MG/DL (70-105); LIPASE 51 U/L (8-78); MAGNESIUM 2.1 MG/DL (1.8-2.4); POTASSIUM 4.1 MMOL/L (3.6-5.0); SODIUM 134 MMOL/L (135-145); TOTAL PROTEIN 8.2 GM/DL (6.4-8.2)
--- NOTE | 2018-05-20 15:31 | Diagnostic Imaging Report ---
Indication: Chest pain. Time of exam: 3:19 PM Correlation is made with prior study from 05/02/2017. Cardiac monitoring device overlies the left chest. The lungs are clear. The pulmonary vascularity is normal. No infiltrate, effusion or pneumothorax is seen. Impression: No acute cardiopulmonary processes detected. Dictated by: Dictated on workstation # [id number]
[2018-05-20 15:35] LABS: MYOGLOBIN SERUM 29.5 NG/ML (10.0-92.0)
[2018-05-20] MEDS ORDERED: morphine INJ 10 MG/ML 1ML (SYR OR VIAL) ONE (15:51)
--- NOTE | 2018-05-20 16:52 | ED Chest Pain ---
General Chief Complaint: Chest Pain Stated Complaint: CP Nursing Triage Note: PRESENTED VIA AMBULATION FROM HOME. C/O CP X3 WEEKS THAT BEGAN TO WORSEN TODAY APPROX [phone]. STATES CHEST PRESSURE AND PAIN TO LEFT SHOULDER AND ELBOW. NO ASA OR NITRO WIRE ROPE SALES REPRESENTATIVE. Nursing Sepsis Screen: No Definite Risk Source: patient History of Present Illness Date Seen by Provider: May 20, 2018 Time Seen by Provider: 14:52 Initial Comments Here with increasing chest pain over the last 3 weeks that he describes as a pressure that radiates to the left arm and he describes left arm numbness. All of this is worse today. He does have significant cardiac history requiring staged stenting procedure previously. Does have some nausea but no vomiting. Is on both Plavix and Eliquis. Reports taking his meds as directed. Normally follows with Dr. José. Timing/Duration: getting worse, changing over time, other (3 weeks) Severity/Quality: moderate, pressure Location: central Radiation: arms Activities at Onset: none Prior CP/Workup: cardiac cath, echocardiography, heart attack, stress test Modifying Factors: worse with exercise; improves with rest ASA po WIRE ROPE SALES REPRESENTATIVE: No NTG SL WIRE ROPE SALES REPRESENTATIVE: No Associated Symptoms: No abdominal pain, No dizziness, No fever/chills; nausea/ vomiting; No shortness of breath, No weakness Allergies and Home Medications Allergies Coded Allergies: bee pollen (Unverified Allergy, Mild, 12/29/09) Home Medications Apixaban 5 Mg Tablet, 5 MG PO BID, (Reported) Atorvastatin Calcium 80 Mg Tablet, 80 MG PO HS Prescribed by: DEANA JOSÉ on 05/02/17 0831 Budesonide/Formoterol Fumarate 10.2 Gm Hfa.aer.ad, 2 PUFF IH BID, (Reported) Cefdinir 300 Mg Capsule, 300 MG PO BID Prescribed by: HUNTER BLOOM on 05/02/17 1046 Cholecalciferol (Vitamin D3) 5,000 Unit Capsule, 10,000 UNIT PO DAILY, (Reported ) TAKES 2 (5,000 MG) CAPSULES Clopidogrel Bisulfate 75 Mg Tablet, 75 MG PO DAILY Prescribed by: DEANA JOSÉ on 05/02/17 0831 Glipizide 10 Mg Tablet, 10 MG PO BID, (Reported) Liraglutide 0.6 Mg/0.1 Ml Pen.injctr, 1.8 MG SQ 1800, (Reported) Lisinopril 20 Mg Tablet, 20 MG PO DAILY Prescribed by: DEANA JOSÉ on 05/02/17 0831 Metformin HCl 1,000 Mg Tablet, 1,000 MG PO BID, (Reported) Patient Home Medication List Home Medication List Reviewed: Yes Review of Systems Constitutional: see HPI; No chills, No fever EENTM: No Symptoms Reported Respiratory: See HPI; Denies Cough Cardiovascular: Chest Pain; Denies Edema Gastrointestinal: Denies Diarrhea, Denies Vomiting Genitourinary: No Symptoms Reported Musculoskeletal: no symptoms reported Skin: no symptoms reported All Other Systems Reviewed Negative Unless Noted: Yes Past Kdxyxap-Lkvkpx-Aatjjs Hx Past Med/Social Hx: Reviewed Nursing Past Med/Soc Hx Patient Social History Alcohol Use: Denies Use Number of Drinks Today: AA Alcohol Beverage of Choice: Beer Recreational Drug Use: No Smoking Status: Current Everyday Smoker Type Used: Cigarettes Recent Foreign Travel: No Contact w/Someone Who Travel: No Recent Infectious Disease Expo: No Recent Hopitalizations: No Immunizations Up To Date Tetanus Booster (TDap): Unknown Seasonal Allergies Seasonal Allergies: No Past Medical History Surgeries: Yes (LEFT SHOULDER X 1, RIGHT SHOULDER X2; RIGHT KNEE X2; CARDIOVERSION, 2 STENT) Cardiac, Orthopedic, Tonsillectomy Respiratory: Yes COPD Cardiac: Yes Atrial Fibrillation, High Cholesterol, Hypertension Neurological: No Reproductive Disorders: No Sexually Transmitted Disease: No HIV/AIDS: No Genitourinary: No Gastrointestinal: No Musculoskeletal: Yes ( FX HAND; SHOULDER AND KNEE SURGERIES) Fractures Endocrine: Yes Diabetes, Non-Insulin dep HEENT: No Cancer: No Psychosocial: No Integumentary: No Blood Disorders: No Family Medical History Reviewed Nursing Family Hx No Pertinent Family Hx Physical Exam Vital Signs Vital Signs - First Documented 05/20/18 14:52 FiO2 96 Capillary Refill : Less Than 3 Seconds Height, Weight, BMI Height: 5'10.00" Weight: 225lbs. 8.0oz. 102.050080ia; 34.0 BMI Method:Stated General Appearance: WD/WN, Anxious, Mild Distress HEENT: PERRL/EOMI, Pharynx Normal Neck: Non Tender, Supple Respiratory: Lungs Clear, Normal Breath Sounds Cardiovascular: No Murmur, Tachycardia Gastrointestinal: Normal Bowel Sounds, No Pulsatile Mass, Non Tender, Soft Extremity: Normal Range of Motion, Non Tender Neurologic/Psychiatric: Alert, Oriented x3 Skin: Normal Color, Warm/Dry Progress/Results/Core Measures Results/Orders Lab Results Laboratory Tests Test 05/20/18 14:57 Range/Units White Blood Count 10.8 4.3-11.0 10^3/uL Red Blood Count 5.93 H 4.35-5.85 10^6/uL Hemoglobin 16.1 13.3-17.7 G/DL Hematocrit 46 40-54 % Mean Corpuscular Volume 78 L 80-99 FL Mean Corpuscular Hemoglobin 27 25-34 PG Mean Corpuscular Hemoglobin Concent 35 32-36 G/DL Red Cell Distribution Width 14.9 H 10.0-14.5 % Platelet Count 350 130-400 10^3/uL Mean Platelet Volume 10.5 H 7.4-10.4 FL Neutrophils (%) (Auto) 64 42-75 % Lymphocytes (%) (Auto) 25 12-44 % Monocytes (%) (Auto) 9 0-12 % Eosinophils (%) (Auto) 2 0-10 % Basophils (%) (Auto) 0 0-10 % Neutrophils # (Auto) 6.9 1.8-7.8 X 10^3 Lymphocytes # (Auto) 2.7 1.0-4.0 X 10^3 Monocytes # (Auto) 1.0 0.0-1.0 X 10^3 Eosinophils # (Auto) 0.3 0.0-0.3 10^3/uL Basophils # (Auto) 0.0 0.0-0.1 10^3/uL Prothrombin Time 13.9 12.2-14.7 SEC INR Comment 1.1 0.8-1.4 Activated Partial Thromboplast Time 34 24-35 SEC D-Dimer 0.66 H 0.00-0.49 UG/ML Sodium Level 134 L 135-145 MMOL/L Potassium Level 4.1 3.6-5.0 MMOL/L Chloride Level 99 98-107 MMOL/L Carbon Dioxide Level 24 21-32 MMOL/L Anion Gap 11 5-14 MMOL/L Blood Urea Nitrogen 14 7-18 MG/DL Creatinine 1.03 0.60-1.30 MG/DL Estimat Glomerular Filtration Rate > 60 BUN/Creatinine Ratio 14 Glucose Level 320 H 70-105 MG/DL Calcium Level 9.5 8.5-10.1 MG/DL Corrected Calcium 9.1 8.5-10.1 MG/DL Magnesium Level 2.1 1.8-2.4 MG/DL Total Bilirubin 0.5 0.1-1.0 MG/DL Aspartate Amino Transf (AST/SGOT) 19 5-34 U/L Alanine Aminotransferase (ALT/SGPT) 24 0-55 U/L Alkaline Phosphatase 117 40-136 U/L Myoglobin 29.5 10.0-92.0 NG/ML Troponin I < 0.30 <0.30 NG/ML B-Type Natriuretic Peptide < 10.0 <100.0 PG/ML Total Protein 8.2 6.4-8.2 GM/DL Albumin 4.5 3.2-4.5 GM/DL Lipase 51 8-78 U/L My Orders Orders - CHAPO WATTS MD Cbc With Automated Diff (05/20/18 14:58) Magnesium (05/20/18 14:58) Chest 1 View, Ap/Pa Only (05/20/18 14:58) Ekg Tracing (05/20/18 14:58) Cardiac Profile 1 (05/20/18 14:58) Comprehensive Metabolic Panel (05/20/18 14:58) Myoglobin Serum (05/20/18 14:58) Protime With Inr (05/20/18 14:58) Partial Thromboplastin Time (05/20/18 14:58) O2 (05/20/18 14:58) Monitor-Rhythm Ecg Trace Only (05/20/18 14:58) Lipid Panel (05/21/18 06:00) Aspirin Chewable Tablet (Baby Aspirin Ch (05/20/18 15:00) Nitroglycerin 0.4 Mg Btl 25's (Nitrostat (05/20/18 15:00) Saline Lock/Iv-Start (05/20/18 14:58) Lipase (05/20/18 14:58) BNP (05/20/18 14:58) Fibrin Degradation Products (05/20/18 14:58) Saline Lock/Iv-Start (05/20/18 15:11) Ns Iv 1000 Ml (Sodium Chloride 0.9%) (05/20/18 15:11) Morphine Injection (Morphine Injection (05/20/18 15:51) Medications Given in ED Current Medications Medications Dose Ordered Sig/Juan Miguel Route Start Time Stop Time Status Last Admin Dose Admin Aspirin 324 mg ONCE ONCE PO 8/13/18 15:00 05/20/18 15:01 DC 05/20/18 15:01 324 MG Morphine Sulfate 10 mg STK-MED ONCE .ROUTE 05/20/18 15:51 05/20/18 15:55 DC 05/20/18 15:57 2 MG Nitroglycerin 0.4 mg UD PRN SL 05/20/18 15:00 05/20/18 15:02 0.4 MG Sodium Chloride 1,000 ml @ 0 mls/hr Q0M ONCE IV 05/20/18 15:11 05/20/18 15:12 DC 05/20/18 15:13 999 MLS/HR Vital Signs/I&O 05/20/18 05/20/18 05/20/18 14:52 14:52 14:52 Temp 97.9 Pulse 104 Resp 19 B/P (MAP) 159/87 (111) Pulse Ox 96 96 O2 Delivery Room Air Room Air Room Air FiO2 96 Blood Pressure Mean: 111 Progress Progress Note : Progress Note Seen and evaluated. IV, labs, EKG and chest x-ray ordered. ASA 324 mg by mouth ordered. Nitroglycerin sublingual ordered. We did give 1 dose that he did have a blood pressure less than 100 systolic. Normal saline 1 L bolus ordered. Monitor patient. Pain continued so morphine 2 mg IV given. This did significantly decrease his pain but not quite gone. 1641: Patient has significant cardiac history and event with similar presentation 1 year ago. Due to this and the risk, patient will be admitted for observation. I did discuss the case with Dr. Santos and she accepts patient for admission. I did discuss the case with Dr. Flowers, on-call for Dr. José at 1643 and he access patient for consult. We will continue patient's Plavix and Eliquis as previously prescribed. Patient and family agree with plan. Admit, observation status. Initial ECG Impression Date: May 20, 2018 Initial ECG Impression Time: 14:52 Initial ECG Rate: 98 Initial ECG Rhythm: Normal Sinus Initial ECG Impression: Normal Comment Sinus rhythm with normal axis. No evidence of ST elevation [place]. Unchanged from previous. Interpreted by me. Diagnostic Imaging Diagonstic Imaging: Xray Plain Films/CT/US/NM/MRI: chest Comments NAME: TETO RIOSVirginia Reid MED REC#: [id number] PT STATUS: REG ER : 1965 PHYSICIAN: CHAPO WATTS MD ADMIT DATE: 05/20/18/ER Signed Date of Exam: 05/20/18 CHEST 1 VIEW, AP/PA ONLY Indication: Chest pain. Time of exam: 3:19 PM Correlation is made with prior study from 05/02/2017. Cardiac monitoring device overlies the left chest. The lungs are clear. The pulmonary vascularity is normal. No infiltrate, effusion or pneumothorax is seen. Impression: No acute cardiopulmonary processes detected. Dictated by: Dictated on workstation # [id number] Dict: 05/20/18 1530 Trans: 05/20/18 1545 Interpreted by: CHON AVILA MD Electronically signed by: CHON AVILA MD 05/20/18 1545 Departure Communication (Admissions) Time/Spoke to Admitting Phy: 16:41 Time/Spoke to Consulting Phy: 16:43 Impression Primary Impression: Chest pain Qualified Codes: R07.9 - Chest pain, unspecified Disposition: ADMITTED INPATIENT Condition: Stable Admissions Decision to Admit Reason: Admit from ER (General) Decision to Admit/Date: May 20, 2018 Time/Decision to Admit Time: 16:41 Departure-Patient Inst. Referrals: DUNIA SANTOS MD (PCP/Family) Primary Care Physician CHAPO WATTS MD May 20, 2018 16:52
--- NOTE | 2018-05-20 17:18 | Consultation-Cardiology ---
HPI-Cardiology Cardiology Consultation Date of Consultation 05/20/18 Date of Admission Time Seen by Provider: 17:13 Indication: Chest pain HPI 52 years old gentleman with history of coronary artery disease, hypertension, atrial fibrillation. Has been having recurrent chest pain for the past few weeks which has been worsening recently, came into the emergency room due to worsening of the pain today. Had left sided upper chest discomfort, radiating to left shoulder and arm. No shortness of breath. No palpitation, no syncope, has been compliant with his medication, still an active smoker, long discussion about smoking cessation. EKG did not show any acute changes. Cardiac enzymes were negative. Home Medications & Allergies Allergies: Coded Allergies: bee pollen (Unverified Allergy, Mild, 12/29/09) Home Medication List Reviewed: Yes BNM-Vnkcsz-Rbeved Hx Patient Social History Alcohol Use: Denies Use Recreational Drug Use: No Smoking Status: Current Everyday Smoker Type Used: Cigarettes Recent Foreign Travel: No Recent Infectious Disease Expo: No Recent Hopitalizations: No Immunizations Up To Date Tetanus Booster (TDap): Unknown Past Medical History Past medical history as discussed below Family Medical History Significant Family History: No Pertinent Family Hx Family Medical Hx Noncontributory to his current condition Constitutional: no symptoms reported, see HPI EENTM: see HPI, no symptoms reported Respiratory: see HPI; No cough; dyspnea on exertion; No hemoptysis, No orthopnea, No phlegm, No short of breath, No stridor, No wheezing, No other Cardiovascular: see HPI, chest pain; No edema, No Hx of Intervention; palpitations; No syncope, No vascular heart diseas, No other Gastrointestinal: no symptoms reported, see HPI Genitourinary: no symptoms reported, see HPI Musculoskeletal: no symptoms reported, see HPI Skin: no symptoms reported, see HPI Psychiatric/Neurological: No Symptoms Reported, See HPI Reviewed Test Results Reviewed Test Results Lab Laboratory Tests Test 05/20/18 14:57 Range/Units White Blood Count 10.8 4.3-11.0 10^3/uL Red Blood Count 5.93 H 4.35-5.85 10^6/uL Hemoglobin 16.1 13.3-17.7 G/DL Hematocrit 46 40-54 % Mean Corpuscular Volume 78 L 80-99 FL Mean Corpuscular Hemoglobin 27 25-34 PG Mean Corpuscular Hemoglobin Concent 35 32-36 G/DL Red Cell Distribution Width 14.9 H 10.0-14.5 % Platelet Count 350 130-400 10^3/uL Mean Platelet Volume 10.5 H 7.4-10.4 FL Neutrophils (%) (Auto) 64 42-75 % Lymphocytes (%) (Auto) 25 12-44 % Monocytes (%) (Auto) 9 0-12 % Eosinophils (%) (Auto) 2 0-10 % Basophils (%) (Auto) 0 0-10 % Neutrophils # (Auto) 6.9 1.8-7.8 X 10^3 Lymphocytes # (Auto) 2.7 1.0-4.0 X 10^3 Monocytes # (Auto) 1.0 0.0-1.0 X 10^3 Eosinophils # (Auto) 0.3 0.0-0.3 10^3/uL Basophils # (Auto) 0.0 0.0-0.1 10^3/uL Prothrombin Time 13.9 12.2-14.7 SEC INR Comment 1.1 0.8-1.4 Activated Partial Thromboplast Time 34 24-35 SEC D-Dimer 0.66 H 0.00-0.49 UG/ML Sodium Level 134 L 135-145 MMOL/L Potassium Level 4.1 3.6-5.0 MMOL/L Chloride Level 99 98-107 MMOL/L Carbon Dioxide Level 24 21-32 MMOL/L Anion Gap 11 5-14 MMOL/L Blood Urea Nitrogen 14 7-18 MG/DL Creatinine 1.03 0.60-1.30 MG/DL Estimat Glomerular Filtration Rate > 60 BUN/Creatinine Ratio 14 Glucose Level 320 H 70-105 MG/DL Calcium Level 9.5 8.5-10.1 MG/DL Corrected Calcium 9.1 8.5-10.1 MG/DL Magnesium Level 2.1 1.8-2.4 MG/DL Total Bilirubin 0.5 0.1-1.0 MG/DL Aspartate Amino Transf (AST/SGOT) 19 5-34 U/L Alanine Aminotransferase (ALT/SGPT) 24 0-55 U/L Alkaline Phosphatase 117 40-136 U/L Myoglobin 29.5 10.0-92.0 NG/ML Troponin I < 0.30 <0.30 NG/ML B-Type Natriuretic Peptide < 10.0 <100.0 PG/ML Total Protein 8.2 6.4-8.2 GM/DL Albumin 4.5 3.2-4.5 GM/DL Lipase 51 8-78 U/L Physical Exam Vital Signs Vital Signs - First Documented 05/20/18 14:52 FiO2 96 Capillary Refill : Less Than 3 Seconds Height, Weight, BMI Height: 5'10.00" Weight: 225lbs. 8.0oz. [id number]; 34.0 BMI Method:Stated General Appearance: No Apparent Distress, WD/WN Eyes: Bilateral Eye Normal Inspection, Bilateral Eye PERRL, Bilateral Eye EOMI HEENT: PERRL/EOMI, TMs Normal, Normal ENT Inspection, Pharynx Normal Neck: Full Range of Motion, Normal Inspection, Non Tender, Supple, Carotid Bruit Respiratory: Chest Non Tender, Lungs Clear, Normal Breath Sounds, No Accessory Muscle Use, No Respiratory Distress Cardiovascular: Regular Rate, Rhythm, No Edema, No Gallop, No JVD, No Murmur, Normal Peripheral Pulses Gastrointestinal: Normal Bowel Sounds, No Organomegaly, No Pulsatile Mass, Non Tender, Soft Back: Normal Inspection, No CVA Tenderness, No Vertebral Tenderness Extremity: Normal Capillary Refill, Normal Inspection, Normal Range of Motion, Non Tender, No Calf Tenderness, No Pedal Edema Neurologic/Psychiatric: Alert, Oriented x3, No Motor/Sensory Deficits, Normal Mood/Affect Skin: Normal Color, Warm/Dry Lymphatic: No Adenopathy A/P-Cardiology Admission Diagnosis Chest pain resembling angina Coronary artery disease Hypertension Hyperlipidemia Assessment/Plan Chest pain resembling angina, EKG and cardiac enzymes were negative, I'll continue monitoring overnight, planning to do a stress test in the morning if his cardiac enzymes continue to be negative Coronary artery disease, history of non-ST elevation microinfarction in April 2017 underwent stent deployment using Alpine 2.2528 mm to the right coronary artery, returned for staged intervention to the left circumflex artery using another drug-eluting stent Alpine 2.2523 mm. Had a borderline lesion in the left main coronary artery 40 percent with FFR of 1. 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 History of paroxysmal atrial fibrillation. History of palpitation. Maintained on Eliquis. Hypertension, controlled, continue to monitor blood pressure Hyperlipidemia, monitor lipids History of chronic dyspnea on exertion, heavy tobaccoism, has cut down on his smoking. Tobaccoism, used to smoke up to 3 packs a day, has been down to less than a pack a day, educated on smoking cessation. Diabetes mellitus, followed and managed by primary care physician. Clinical Quality Measures AMI/AHF: ASA po Prior to arrival: BRITTANY Luis MD May 20, 2018 17:18
[2018-05-20] MEDS ORDERED: morphine INJ 4 MG/ML 1 ML (VIAL/SYRINGE) IV PRN (17:30)
[2018-05-20] MEDS: NS IV 1000 ML 1,000 ML IV SCH (17:56)
[2018-05-20] MEDS ORDERED: metFORMIN 500 MG (GLUCOPHAGE) TAB PO SCH (20:00)
[2018-05-20] MEDS ORDERED: RT-ALBUTEROL SULF 2.5 MG/3 ML PRE-MIX VIAL INH PRN (20:15)
[2018-05-20] MEDS: APIXABAN 5 MG (ELIQUIS) TABLET PO SCH (20:17)
[2018-05-20] MEDS: inSUlin ASPART (NovoLOG) 1 UNIT/0.01 ML (CHARGE PER UNIT) SC SCH (20:56)
[2018-05-21] VITALS (7 sets, daily range): BP systolic 111–143; BP diastolic 56–82
[2018-05-21 05:40] LABS: CHOLESTEROL 180 MG/DL (< 200); CREATINE KINASE 68 U/L (30-200); HDL CHOLESTEROL 22 MG/DL (40-60); TRIGLYCERIDES 609 MG/DL (<150); VLDL CHOLESTEROL 122 MG/DL (5-40)
[2018-05-21] MEDS: inSUlin ASPART (NovoLOG) 1 UNIT/0.01 ML (CHARGE PER UNIT) SC SCH ×4 (06:23→21:33)
[2018-05-21] MEDS: glipiZIDE 5 MG (GLUCOTROL) TAB PO SCH ×2 (06:23→17:18)
--- NOTE | 2018-05-21 06:37 | Cardiology Progress Note ---
Subjective Date Seen by Provider: May 21, 2018 Time Seen by Provider: 06:36 Subjective/Events-last exam Patient is laying down in bed, feeling better, no further episodes of chest pain. No shortness of breath. Review of Systems General: No Chills, No Night Sweats, No Fatigue, No Malaise, No Appetite, No Other HEENT: No Head Aches, No Visual Changes, No Eye Pain, No Ear Pain, No Dysphasia , No Sinus Congestion, No Post Nasal Drip, No Sore Throat, No Other Pulmonary: No Dyspnea, No Cough, No Pleuritic Chest Pain, No Other Cardiovascular: No: Chest Pain, Palpitations, Orthopnea, Paroxysmal Noc. Dyspnea, Edema, Lt Headedness, Other Objective-Cardiology Exam Last Set of Vital Signs Vital Signs 05/20/18 05/21/18 20:06 04:06 Temp 97.4 Pulse 80 Resp 18 B/P (MAP) 125/59 (81) Pulse Ox 94 O2 Delivery Room Air FiO2 21 Capillary Refill : Less Than 3 SecondsLess Than 3 Seconds I&O Intake and Output 05/21/18 00:00 Intake Total 1780 ml Balance 1780 ml Intake Oral 780 ml IV Total 1000 ml # Voids 2 Daily Weight Change No General: Alert, Oriented X3, Cooperative HEENT: Atraumatic, PERRLA Neck: Supple, No JVD, No Thyromegaly Lungs: Clear to Auscultation, Normal Air Movement Heart: Regular Rate, Normal S1, Normal S2, No Murmurs Abdomen: Normal Bowel Sounds, Soft, No Tenderness, No Hepatosplenomegaly, No Masses Extremities: No Clubbing, No Cyanosis, No Edema, Normal Pulses, No Tenderness/ Swelling Skin: No Rashes, No Breakdown, No Significant Lesion Neuro: Normal Gait, Normal Speech, Strength at 5/5 X4 Ext, Normal Tone, Sensation Intact Psych/Mental Status: Mental Status NL, Mood NL Results Lab Laboratory Tests 05/20/18 14:57 A/P-Cardiology Admission Diagnosis Chest pain resembling angina Coronary artery disease Hypertension Hyperlipidemia Assessment/Plan Chest pain resembling angina, EKG and cardiac enzymes were negative, planning to proceed with stress test today Coronary artery disease, history of non-ST elevation microinfarction in April 2017 underwent stent deployment using Alpine 2.2528 mm to the right coronary artery, returned for staged intervention to the left circumflex artery using another drug-eluting stent Alpine 2.2523 mm. Had a borderline lesion in the left main coronary artery 40 percent with FFR of 1. 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 History of paroxysmal atrial fibrillation. History of palpitation. Maintained on Eliquis. Continue to monitor at this time Hypertension, controlled, continue to monitor blood pressure Hyperlipidemia, hypertriglyceridemia, maintained on Lipitor 80 mg daily, we discussed in length diet control and tighter diabetic control History of chronic dyspnea on exertion, heavy tobaccoism, has cut down on his smoking. Tobaccoism, used to smoke up to 3 packs a day, has been down to less than a pack a day, educated on smoking cessation. Diabetes mellitus, followed and managed by primary care physician. Clinical Quality Measures AMI/AHF: ASA po Prior to arrival: No DVT/VTE Risk/Contraindication: Risk Factor Score Per Nursin RFS Level Per Nursing on Admit: 3=High BRITTANY TERRELL MD May 21, 2018 06:37
[2018-05-21] MEDS: CATHETER FLUSH 10 ML SYR IV PRN ×2 (06:52→07:54)
[2018-05-21] MEDS ORDERED: REGADENOSON 0.4 MG/5 ML SYR (LEXISCAN) IV ONE ×2 (07:46→08:00)
[2018-05-21] MEDS ORDERED: CLOPIDOGREL 75 MG (PLAVIX) TABLET PO SCH (09:00)
[2018-05-21] MEDS ORDERED: ASPIRIN E.C. 81 MG (ECOTRIN) TAB PO SCH (09:00)
[2018-05-21] MEDS: RT-ADVAIR HFA 115/21 MCG PER PUFF IH SCH ×2 (09:21→20:14)
[2018-05-21] MEDS: APIXABAN 5 MG (ELIQUIS) TABLET PO SCH (09:41)
[2018-05-21] MEDS ORDERED: ATOR80TA64 PO (09:44)
[2018-05-21] MEDS ORDERED: LISI-552 PO (09:44)
[2018-05-21] MEDS ORDERED: CLOP75TA69 PO (09:44)
[2018-05-21] MEDS ORDERED: OMEP20TA33 PO (09:46)
[2018-05-21] MEDS: NS IV 1000 ML 1,000 ML IV SCH (17:20)
--- NOTE | 2018-05-21 20:06 | History & Physicial ([facility]) ---
HPI History of Present Illness: 52 yo male presented to ER due to worsening chest pain over the last few weeks. He has had chest pain for at least a couple of weeks, and has had mild brief episodes on and off since he had cardiac event in the past. However, it became more severe yesterday and was associated with some shortness of air and dizziness, so he felt he should come in. He also notes he has increasing frequency of "boils" in his groin and axilla which he has had since teenage years, but usually every 5-6 months, and now rather persistent. He states his blood sugar had been running 120-140 with occasional 160 or 170 over the last month but in the last week has had some higher. Date seen by provider: May 21, 2018 Time Seen by Provider: 10:20 Attending Physician Dunia Kingsley MD PCP Dunia Kingsley MD Consult Date of Admission May 20, 2018 at 4:53 pm Home Medications Home Medications Reviewed patient Home Medication Reconciliation performed by pharmacy medication reconciliations treatment technician and/or nursing. Patients Allergies have been reviewed. Allergies Coded Allergies: bee pollen (Unverified Allergy, Mild, 05/20/18) JBD-Zldplh-Qrtyxn Hx Patient Social History Alcohol Use: Denies Use Recreational Drug Use: No Smoking Status: Current Everyday Smoker Type Used: Cigarettes Recent Foreign Travel: No Contact w/other who traveled: No Recent Hopitalizations: No Recent Infectious Disease Expo: No Physical Abuse Screen: No Sexual Abuse: No Immunizations Up To Date Tetanus Booster (TDap): Unknown Past Medical History PMHx: DMII HTN HLD COPD GERD Paroxysmal atrial fibrillation CAD Vitamin D deficiency Nephrolithiasis SurgHx: Right knee replacement Shoulder arthroscopy Tonsillectomy and adenoidectomy Family Medical History Significant Family History: No Pertinent Family Hx Review of Systems ([facility]) Constitutional: No fever Respiratory: No cough Cardiovascular: see HPI Gastrointestinal: no symptoms reported Genitourinary: no symptoms reported Musculoskeletal: no symptoms reported Skin: see HPI Psychiatric/Neurological: No Symptoms Reported Reviewed Test Results Reviewed Test Results Lab Laboratory Tests Test 05/20/18 14:57 05/20/18 20:47 05/20/18 23:10 05/21/18 05:14 Range/Units White Blood Count 10.8 4.3-11.0 10^3/uL Red Blood Count 5.93 H 4.35-5.85 10^6/uL Hemoglobin 16.1 13.3-17.7 G/DL Hematocrit 46 40-54 % Mean Corpuscular Volume 78 L 80-99 FL Mean Corpuscular Hemoglobin 27 25-34 PG Mean Corpuscular Hemoglobin Concent 35 32-36 G/DL Red Cell Distribution Width 14.9 H 10.0-14.5 % Platelet Count 350 130-400 10^3/uL Mean Platelet Volume 10.5 H 7.4-10.4 FL Neutrophils (%) (Auto) 64 42-75 % Lymphocytes (%) (Auto) 25 12-44 % Monocytes (%) (Auto) 9 0-12 % Eosinophils (%) (Auto) 2 0-10 % Basophils (%) (Auto) 0 0-10 % Neutrophils # (Auto) 6.9 1.8-7.8 X 10^3 Lymphocytes # (Auto) 2.7 1.0-4.0 X 10^3 Monocytes # (Auto) 1.0 0.0-1.0 X 10^3 Eosinophils # (Auto) 0.3 0.0-0.3 10^3/uL Basophils # (Auto) 0.0 0.0-0.1 10^3/uL Prothrombin Time 13.9 12.2-14.7 SEC INR Comment 1.1 0.8-1.4 Activated Partial Thromboplast Time 34 24-35 SEC D-Dimer 0.66 H 0.00-0.49 UG/ML Sodium Level 134 L 135-145 MMOL/L Potassium Level 4.1 3.6-5.0 MMOL/L Chloride Level 99 98-107 MMOL/L Carbon Dioxide Level 24 21-32 MMOL/L Anion Gap 11 5-14 MMOL/L Blood Urea Nitrogen 14 7-18 MG/DL Creatinine 1.03 0.60-1.30 MG/DL Estimat Glomerular Filtration Rate > 60 BUN/Creatinine Ratio 14 Glucose Level 320 H 70-105 MG/DL Calcium Level 9.5 8.5-10.1 MG/DL Corrected Calcium 9.1 8.5-10.1 MG/DL Magnesium Level 2.1 1.8-2.4 MG/DL Total Bilirubin 0.5 0.1-1.0 MG/DL Aspartate Amino Transf (AST/SGOT) 19 5-34 U/L Alanine Aminotransferase (ALT/SGPT) 24 0-55 U/L Alkaline Phosphatase 117 40-136 U/L Myoglobin 29.5 24.6 10.0-92.0 NG/ML Troponin I < 0.30 < 0.30 < 0.30 <0.30 NG/ML B-Type Natriuretic Peptide < 10.0 <100.0 PG/ML Total Protein 8.2 6.4-8.2 GM/DL Albumin 4.5 3.2-4.5 GM/DL Lipase 51 8-78 U/L Glucometer 307 H 70-110 MG/DL Total Creatine Kinase 68 30-200 U/L Triglycerides Level 609 H <150 MG/DL Cholesterol Level 180 < 200 MG/DL LDL Cholesterol Direct 67 1-129 MG/DL VLDL Cholesterol 122 H 5-40 MG/DL HDL Cholesterol 22 L 40-60 MG/DL Test 05/21/18 05:29 05/21/18 12:23 05/21/18 16:51 Range/Units Glucometer 307 H 323 H 251 H 70-110 MG/DL Physical Exam-([facility]) Physical Exam Vital Signs VS - Last 72 Hours, by Label 05/20/18 05/20/18 05/20/18 05/20/18 14:52 14:52 14:52 17:05 Temp 97.9 Pulse 104 104 Resp 19 19 B/P (MAP) 159/87 (111) 113/87 (111) Pulse Ox 96 96 96 O2 Delivery Room Air Room Air Room Air Room Air FiO2 96 05/20/18 05/20/18 05/20/18 05/20/18 17:15 17:30 17:45 17:54 Temp 96.9 Pulse 85 85 77 83 Resp 18 B/P (MAP) 128/71 (90) 111/76 (88) 129/84 (99) Pulse Ox 96 96 96 O2 Delivery Room Air 05/20/18 05/20/18 05/20/18 05/20/18 18:00 18:15 18:55 19:00 Pulse 83 83 86 B/P (MAP) 114/72 (86) 122/81 (95) Pulse Ox 97 98 O2 Delivery Room Air 05/20/18 05/20/18 05/20/18 05/20/18 19:15 20:05 20:06 20:15 Pulse 85 85 80 B/P (MAP) 107/69 (82) 112/72 (85) Pulse Ox 97 97 96 O2 Delivery Room Air FiO2 21 05/20/18 05/20/18 05/21/18 05/21/18 21:15 22:15 00:13 01:00 Temp 97.6 Pulse 76 76 76 77 Resp 19 B/P (MAP) 100/72 (81) 109/78 (88) 111/56 (74) Pulse Ox 96 97 96 O2 Delivery Room Air 05/21/18 05/21/18 05/21/18 05/21/18 04:06 07:00 07:51 08:00 Temp 97.4 96.8 Pulse 80 128 104 79 Resp 18 16 20 B/P (MAP) 125/59 (81) 122/65 (84) 143/72 (95) Pulse Ox 94 98 96 O2 Delivery Room Air Room Air Room Air 05/21/18 05/21/18 05/21/18 05/21/18 08:00 09:21 12:00 13:00 Temp 98.1 Pulse 80 75 Resp 18 B/P (MAP) 141/75 (97) Pulse Ox 98 98 O2 Delivery Room Air Room Air Room Air 05/21/18 16:15 Temp 97.7 Pulse 79 Resp 16 B/P (MAP) 125/66 (85) Pulse Ox 97 O2 Delivery Room Air Capillary Refill : Less Than 3 SecondsLess Than 3 Seconds General Appearance: WD/WN, no apparent distress Respiratory: lungs clear, normal breath sounds Cardiovascular: regular rate, rhythm, no murmur Gastrointestinal: normal bowel sounds, non tender, soft Neurologic/Psychiatric: alert, normal mood/affect Skin: normal color, warm/dry Assessment/Plan Assessment/Plan Admission Dx Chest pain Admission Status: Observation (1) Chest pain Status: Acute Assessment & Plan: High risk history, troponins negative, no acute EKG changes , Cardiology consulted, stress test today Qualifiers: Qualified Codes: R07.9 - Chest pain, unspecified (2) Coronary artery disease Status: Chronic Assessment & Plan: s/p stenting in 2017 Qualifiers: Qualified Codes: I25.110 - Atherosclerotic heart disease of [place] coronary artery with unstable angina pectoris (3) Diabetes mellitus, type 2 Status: Chronic Assessment & Plan: Resume home medications Qualifiers: Qualified Codes: E11.65 - Type 2 diabetes mellitus with hyperglycemia (4) GERD (gastroesophageal reflux disease) Status: Chronic Assessment & Plan: Continue home medications (5) Hypertension Status: Chronic Assessment & Plan: Resume home medications Qualifiers: Qualified Codes: I10 - Essential (primary) hypertension (6) Hyperlipidemia Status: Chronic Assessment & Plan: Resume home meds (7) Paroxysmal atrial fibrillation Status: Chronic Assessment & Plan: Stable, continue apixaban (8) COPD (chronic obstructive pulmonary disease) Status: Chronic Assessment & Plan: Resume home inhalers (9) DVT prophylaxis Status: Acute Assessment & Plan: On apixaban Clinical Quality Measures AMI/AHF: ASA po Prior to arrival: No DVT/VTE Risk/Contraindication: Risk Factor Score Per Nursin RFS Level Per Nursing on Admit: 3=High DUNIA KINGSLEY MD May 21, 2018 20:06
[2018-05-21] MEDS ORDERED: NON-FORMULARY MEDICATION 1 EA EA (Atorvastatin Calcium (Lipitor) 80 MG) PO SCH (21:00)
[2018-05-21] MEDS: lisINopril 20 MG (PRINIVIL) TABLET PO SCH (21:33)
[2018-05-21] MEDS: ATORVASTATIN 80 MG (LIPITOR) TABLET PO SCH (21:33)
[2018-05-22] VITALS (25 sets, daily range): BP systolic 101–148; BP diastolic 54–80
[2018-05-22] MEDS: glipiZIDE 5 MG (GLUCOTROL) TAB PO SCH ×2 (05:40→16:36)
[2018-05-22] MEDS: PANTOPRAZOLE 20 MG TABLET (PROTONIX) PO SCH (05:40)
[2018-05-22] MEDS: inSUlin ASPART (NovoLOG) 1 UNIT/0.01 ML (CHARGE PER UNIT) SC SCH ×4 (06:07→20:48)
[2018-05-22] MEDS ORDERED: LIDOCAINE 1% INJ 20 ML 20 ML VIAL ONE (07:07)
[2018-05-22] MEDS ORDERED: NS IV 1000 ML 1,000 ML ONE (07:07)
[2018-05-22] MEDS ORDERED: HEParin (CATH LAB) 2,000 ML IV ONE (07:07)
[2018-05-22] MEDS ORDERED: MIDAZOLAM 5 MG/5 ML (VERSED) VIAL ONE (07:26)
[2018-05-22] MEDS ORDERED: fentaNYL INJECTION 100 MCG/2 ML AMP ONE ×2 (07:26→10:51)
--- NOTE | 2018-05-22 08:12 | Cardiac Procedure Note-CS/ASA ---
Pre-Procedure Note Pre-Op Procedure Note H&P Reviewed The H&P was reviewed, patient examined and no changes noted. Date H&P Reviewed: May 22, 2018 Time H&P Reviewed: 08:12 Conscious Sedation Pre-Proced Time Reviewed: 08:12 ASA Class: 3 Airway Mallampati Classification: ([place] appropriate class) I. II. III, IV Lungs Heart ASA score ASA 1: a normal healthy patient ASA 2: a patient with a mild systemic disease (mid diabetes, controlled hypertension, obesity x ASA 3: a patient with a severe systemic disease that limits activity (angina , COPD, prior Myocardial infarction) ASA 4: a patient with an incapacitating disease that is a constant threat to life (CHF, renal failure) ASA 5: a moribund patient not expected to survive 24 hrs. (ruptured aneurysm) ASA 6: a declared brain patient whose organs are being harvested. For emergent operations, add the letter E after the classification Grade 3 Sedation Plan: Analgesia, Amnesia, Plan communicated to team members, Discussed options with patient/fam, Discussed risks with patient/fam Note The patient is an appropriate candidate to undergo the planned procedure, sedation, and anesthesia. The patient immediately re-assessed prior to indication. BRITTANY TERRELL MD May 22, 2018 8:12 am
[2018-05-22] MEDS ORDERED: HEParin 1000 UNIT/ML (10ML VIAL) FOR BOLUS ONE (08:28)
[2018-05-22] MEDS ORDERED: NITRO DRIP 25000 MCG/D5W 250 ML IV ONE (08:30)
[2018-05-22] MEDS ORDERED: ASPIRIN 325 MG (5 GR) TABLET ONE (08:56)
[2018-05-22] MEDS ORDERED: CLOPIDOGREL 300 MG (PLAVIX) TABLET PO ONE (08:56)
--- NOTE | 2018-05-22 08:58 | Cardiology Progress Note ---
Subjective Date Seen by Provider: May 22, 2018 Time Seen by Provider: 08:56 Subjective/Events-last exam Patient is laying down in bed, had a cardiac catheterization today. Review of Systems General: No Chills, No Night Sweats, No Fatigue, No Malaise, No Appetite, No Other HEENT: No Head Aches, No Visual Changes, No Eye Pain, No Ear Pain, No Dysphasia , No Sinus Congestion, No Post Nasal Drip, No Sore Throat, No Other Pulmonary: No Dyspnea, No Cough, No Pleuritic Chest Pain, No Other Cardiovascular: No: Chest Pain, Palpitations, Orthopnea, Paroxysmal Noc. Dyspnea, Edema, Lt Headedness, Other Objective-Cardiology Exam Last Set of Vital Signs Vital Signs 05/20/18 05/22/18 05/22/18 20:06 04:06 07:00 Temp 98.0 Pulse 81 Resp 17 B/P (MAP) 114/60 (78) Pulse Ox 94 O2 Delivery Room Air FiO2 21 Capillary Refill : Less Than 3 SecondsLess Than 3 Seconds I&O Intake and Output 05/22/18 00:00 Intake Total 2440 ml Balance 2440 ml Intake Oral 1440 ml IV Total 1000 ml # Voids 9 # Bowel Movements 1 General: Alert, Oriented X3, Cooperative HEENT: Atraumatic, PERRLA Neck: Supple, No JVD, No Thyromegaly Lungs: Clear to Auscultation, Normal Air Movement Heart: Regular Rate, Normal S1, Normal S2, No Murmurs Abdomen: Normal Bowel Sounds, Soft, No Tenderness, No Hepatosplenomegaly, No Masses Extremities: No Clubbing, No Cyanosis, No Edema, Normal Pulses, No Tenderness/ Swelling Skin: No Rashes, No Breakdown, No Significant Lesion Neuro: Normal Gait, Normal Speech, Strength at 5/5 X4 Ext, Normal Tone, Sensation Intact Psych/Mental Status: Mental Status NL, Mood NL A/P-Cardiology Admission Diagnosis Chest pain resembling angina Coronary artery disease Hypertension Hyperlipidemia Assessment/Plan Chest pain resembling angina, last postcardiac catheterization, extensive coronary artery disease, stenting to the circumflex artery and planned intervention to the right coronary artery Coronary artery disease, history of non-ST elevation microinfarction in April 2017 underwent stent deployment using Alpine 2.2528 mm to the right coronary artery, returned for staged intervention to the left circumflex artery using another drug-eluting stent Alpine 2.2523 mm. Had a borderline lesion in the left main coronary artery 40 percent with FFR of 1. Underwent cardiac catheterization after having an abnormal stress test resulted in stenting to the circumflex artery proximal to the or stent using Alpine 2.2512 millimeter expanded to 2.45, the right coronary artery has severe stenosis distally at the bifurcation point, fairly small artery. 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 History of paroxysmal atrial fibrillation. History of palpitation. Maintained on Eliquis. Continue to monitor at this time Hypertension, controlled, continue to monitor blood pressure Hyperlipidemia, hypertriglyceridemia, maintained on Lipitor 80 mg daily, we discussed in length diet control and tighter diabetic control History of chronic dyspnea on exertion, heavy tobaccoism, has cut down on his smoking. Tobaccoism, used to smoke up to 3 packs a day, has been down to less than a pack a day, educated on smoking cessation. Diabetes mellitus, followed and managed by primary care physician. Clinical Quality Measures AMI/AHF: ASA po Prior to arrival: No DVT/VTE Risk/Contraindication: Risk Factor Score Per Nursin RFS Level Per Nursing on Admit: 3=High BRITTANY TERRELL MD May 22, 2018 08:58
[2018-05-22] MEDS ORDERED: PATIENT MAY USE OWN MEDS, ALL PO SCH (09:00)
[2018-05-22] MEDS ORDERED: ASPIRIN E.C. 81 MG (ECOTRIN) TAB PO SCH (09:00)
[2018-05-22] MEDS ORDERED: NON-FORMULARY MEDICATION 1 EA EA (Omeprazole Magnesium (Prilosec Otc) 20 MG) PO SCH (09:00)
--- NOTE | 2018-05-22 09:03 | Cardiac Cath Report ---
Cardiac Cath Report Physician (s)/Financial Advisor (s) Physician BRITTANY TERRELL MD Pre-Procedure Diagnosis Pre-Procedure Diagnosis: coronary artery disease Post-Procedure Note Procedure Start Date: May 22, 2018 Name of Procedure: Left heart catheterization Stenting to the circumflex artery Findings/Procedure Note PROCEDURE NOTE: After explaining the procedure to the patient, all pros and cons were explained , all questions were answered. The patient signed the consent and then he was placed on the cardiac catheterization laboratory. Groin was prepped SL fashion local anesthesia was used. Sheath placed in the left femoral artery. Ethel right and left catheter were used to access the coronary system. Patient was given 5000 units of heparin, SL 4 guide was advanced left carotid system, patient had severe stenosis proximal to the stent in the circumflex artery, BMW wire was advanced in the circumflex artery and parked distally then primary stenting using Alpine 2.2512 mm expanded to 2.45 mm with excellent results. No residual stenosis was noted. At the end of the procedure the Sheath was sutured in place FINDINGS: Hemodynamics LV no measurement as a pressure. Did not cross the aortic valve Aorta 136/87 mean of 52 ANATOMY: Left Main has mild disease proximally Left Anterior Descending has mild disease nonobstructive disease Left Circumflex has a patent stent with 80 percent stenosis proximal to the stent, successful primary stenting using 2.25 x 12 millimeter stent expanded to 2.45 with excellent results Right Coronory Artery is small artery dominant artery with patent stent with edge dissection distally extending to the posterior lateral branch and slightly to the PDA, CONCLUSION: 1. Distal edge dissection in the right coronary artery stent appeared to be extending to the posterior lateral branch and the PDA, both arteries are fairly small artery. 2. Severe stenosis in the proximal circumflex artery proximal to the previously deployed stent, successful the appointment of an overlapping stent using Alpine 2.2512 mm expanded to 2.45 with excellent results 3. Mild disease in the left main coronary artery and LAD DISCUSSION AND RECOMMENDATION: Continue to maximize medical therapy, educated on compliance with medication Anesthesia Type: Conscious Sedation Estimated blood loss (mL): 10 ml Contrast Amount: 90 ml Total Radiation Dose: 1006 mGy Post-Procedure Diagnosis Post-operative diagnosis: Unstable angina Coronary artery disease Hypertension Hyperlipidemia (1) Chest pain Assessment & Plan: High risk history, troponins negative, no acute EKG changes , Cardiology consulted, stress test today Qualifiers: Qualified Codes: R07.9 - Chest pain, unspecified (2) Coronary artery disease Assessment & Plan: s/p stenting in 2017 Qualifiers: Qualified Codes: I25.110 - Atherosclerotic heart disease of [place] coronary artery with unstable angina pectoris (3) Diabetes mellitus, type 2 Assessment & Plan: Resume home medications Qualifiers: Qualified Codes: E11.65 - Type 2 diabetes mellitus with hyperglycemia (4) GERD (gastroesophageal reflux disease) Assessment & Plan: Continue home medications (5) Hypertension Assessment & Plan: Resume home medications Qualifiers: Qualified Codes: I10 - Essential (primary) hypertension (6) Hyperlipidemia Assessment & Plan: Resume home meds (7) Paroxysmal atrial fibrillation Assessment & Plan: Stable, continue apixaban (8) COPD (chronic obstructive pulmonary disease) Assessment & Plan: Resume home inhalers (9) DVT prophylaxis Assessment & Plan: On apixaban BRITTANY TERRELL MD May 22, 2018 09:03
[2018-05-22] MEDS: NS IV 1000 ML 1,000 ML IV SCH ×2 (09:04→20:00)
[2018-05-22] MEDS: RT-ADVAIR HFA 115/21 MCG PER PUFF IH SCH ×2 (09:07→19:01)
[2018-05-22] MEDS: CLOPIDOGREL 75 MG (PLAVIX) TABLET PO SCH (09:50)
[2018-05-22] MEDS ORDERED: ACETAMINOPHEN 325 MG TABLET ONE (10:51)
[2018-05-22] MEDS ORDERED: ATROPINE INJECTION 1 MG/10 ML SYR (ABBOTT) ONE (10:51)
[2018-05-22] MEDS ORDERED: fentaNYL INJECTION 100 MCG/2 ML AMP IVP NR (11:00)
[2018-05-22] MEDS: ACETAMINOPHEN 325 MG TABLET PO PRN ×2 (11:00→20:48)
--- NOTE | 2018-05-22 13:03 | Progress Note (SOAP) ---
Subjective Subjective/Events-last exam Underwent catheterization this morning and had stent placed proximal to prior circumflex stent as well as concern for possible distal edge dissection in right coronary artery at end of prior stent. He is feeling okay except he has a headache. Review of Systems Date Seen by Provider: May 22, 2018 Time Seen by Provider: 11:45 Objective Exam Last Set of Vital Signs Vital Signs Date Time Temp Pulse Resp B/P (MAP) Pulse Ox O2 Delivery O2 Flow Rate FiO2 05/22/18 11:30 71 10 132/74 (93) 98 Room Air 05/22/18 04:06 98.0 05/20/18 20:06 21 Capillary Refill : Less Than 3 SecondsLess Than 3 Seconds I&O Intake and Output 05/22/18 00:00 Intake Total 2440 ml Balance 2440 ml Intake Oral 1440 ml IV Total 1000 ml # Voids 9 # Bowel Movements 1 General: Alert, No Acute Distress Lungs: Clear to Auscultation, Normal Air Movement Heart: Regular Rate, No Murmurs Psych/Mental Status: Mental Status NL Results/Procedures Lab Laboratory Tests 05/21/18 16:51: Glucometer 251H 05/21/18 21:01: Glucometer 222H 05/22/18 05:17: Glucometer 223H 05/22/18 10:05: Activated Partial Thromboplast Time 77H 05/22/18 12:31: Glucometer 256H Assessment/Plan Assessment/Plan (1) Chest pain Status: Acute Assessment & Plan: High risk history, troponins negative, no acute EKG changes , Cardiology consulted, stress test today 05/22 stress test abnormal, cath this am with stenosis in circumflex stented proximal to prior stent with overlapping stenting as well as note of possible distal edge dissection in right coronary artery stent. Medical management for right coronary for now per Cardiology, will depend on symptomatology. Discussed with patient the importance of blood sugar control, blood pressure control and especially smoking cessation. Qualifiers: Qualified Codes: R07.9 - Chest pain, unspecified (2) Coronary artery disease Status: Chronic Assessment & Plan: s/p stenting in 05/22 additional stent this am as noted above Qualifiers: Qualified Codes: I25.110 - Atherosclerotic heart disease of [place] coronary artery with unstable angina pectoris (3) Diabetes mellitus, type 2 Status: Chronic Assessment & Plan: Resume home medications except liraglutide which is non- formulary, discussed if they bring from home we can have pharmacy verify so he can use Sliding scale insulin 05/22 metformin on hold for contrast Qualifiers: Qualified Codes: E11.65 - Type 2 diabetes mellitus with hyperglycemia (4) GERD (gastroesophageal reflux disease) Status: Chronic Assessment & Plan: Continue home medications (5) Hypertension Status: Chronic Assessment & Plan: Resume home medications Qualifiers: Qualified Codes: I10 - Essential (primary) hypertension (6) Hyperlipidemia Status: Chronic Assessment & Plan: Resume home meds (7) Paroxysmal atrial fibrillation Status: Chronic Assessment & Plan: Stable, continue apixaban (8) COPD (chronic obstructive pulmonary disease) Status: Chronic Assessment & Plan: Resume home inhalers (9) DVT prophylaxis Status: Acute Assessment & Plan: On apixaban, on hold for procedure 05/22 Clinical Quality Measures AMI/AHF: ASA po Prior to arrival: No DVT/VTE Risk/Contraindication: Risk Factor Score Per Nursin RFS Level Per Nursing on Admit: 3=High DUNIA SANTOS MD May 22, 2018 1:03 pm
--- NOTE | 2018-05-22 16:14 | STRESS TEST ---
DATE OF SERVICE: 05/21/2018 LEXISCAN MYOVIEW STRESS TEST REPORT Baseline heart rate is 76. Baseline blood pressure 126/67. Baseline EKG is sinus rhythm with no ischemic changes. In summary, the patient was injected with 10.77 mCi of technetium-99 Myoview and the resting images were obtained. Then, the patient received 0.4 mg of Lexiscan followed by 31.6 mCi of technetium-99 Myoview. Throughout the test, there were no EKG changes. The resting and stress images were reviewed and compared in the short axis, horizontal long axis, and vertical long axis views. Review of the images showed decreased uptake involving the inferior wall inferoapical segment and inferolateral wall with subtle reversibility. SSS is 3, SDS 2, TID value 1.12. On the gated images, the left ventricle appeared to be in normal size with mild hypokinesia at the inferior wall. Calculated ejection fraction 49%. CONCLUSION: 1. The patient tolerated Lexiscan well. 2. Mild ischemia involving the inferior wall, inferolateral wall and inferoapical segment. 3. Normal left ventricular size with mild hypokinesia at the inferior wall. Calculated ejection fraction 49%. Job ID: [id number] DocumentID: [id number] Dictated Date: 05/22/2018 13:49:53 Electrical Plumbing Supervisor Date: 05/22/2018 16:14:04 Dictated By: BRITTANY TERRELL MD
[2018-05-22] MEDS: lisINopril 20 MG (PRINIVIL) TABLET PO SCH (20:48)
[2018-05-22] MEDS: ATORVASTATIN 80 MG (LIPITOR) TABLET PO SCH (20:48)
[2018-05-23] VITALS: BP 103/45
[2018-05-23 04:00] VITALS: BP 112/76
[2018-05-23 04:09] LABS: HEMOGLOBIN 13.6 G/DL (13.3-17.7); MEAN PLATELET VOLUME 10.6 FL (7.4-10.4); RED BLOOD COUNT 4.95 10^6/uL (4.35-5.85); RED CELL DISTRIBUTION WIDTH 14.5 % (10.0-14.5); WHITE BLOOD COUNT 8.3 10^3/uL (4.3-11.0)
[2018-05-23 04:27] LABS: BUN/CREATININE RATIO 12; CARBON DIOXIDE 20 MMOL/L (21-32); CHLORIDE 106 MMOL/L (98-107); CREATININE SERUM 0.74 MG/DL (0.60-1.30); GFR ESTIMATED > 60; GLUCOSE 162 MG/DL (70-105); POTASSIUM 3.9 MMOL/L (3.6-5.0); SODIUM 136 MMOL/L (135-145)
[2018-05-23] MEDS: NS IV 1000 ML 1,000 ML IV SCH (05:35)
[2018-05-23] MEDS: glipiZIDE 5 MG (GLUCOTROL) TAB PO SCH (06:46)
[2018-05-23] MEDS: PANTOPRAZOLE 20 MG TABLET (PROTONIX) PO SCH (06:46)
[2018-05-23] MEDS: RT-ADVAIR HFA 115/21 MCG PER PUFF IH SCH (06:51)
[2018-05-23] MEDS: inSUlin ASPART (NovoLOG) 1 UNIT/0.01 ML (CHARGE PER UNIT) SC SCH (06:51)
[2018-05-23 08:00] VITALS: BP 124/74
--- NOTE | 2018-05-23 08:39 | Cardiology Progress Note ---
Subjective Date Seen by Provider: May 23, 2018 Time Seen by Provider: 08:38 Subjective/Events-last exam Patient is laying down in bed, asking to go home, reporting significant improvement in his left sided chest and arm pain. Review of Systems General: No Chills, No Night Sweats, No Fatigue, No Malaise, No Appetite, No Other HEENT: No Head Aches, No Visual Changes, No Eye Pain, No Ear Pain, No Dysphasia , No Sinus Congestion, No Post Nasal Drip, No Sore Throat, No Other Pulmonary: No Dyspnea, No Cough, No Pleuritic Chest Pain, No Other Cardiovascular: No: Chest Pain, Palpitations, Orthopnea, Paroxysmal Noc. Dyspnea, Edema, Lt Headedness, Other Objective-Cardiology Exam Last Set of Vital Signs Vital Signs 05/20/18 05/23/18 05/23/18 20:06 04:00 06:52 Temp 98.0 Pulse 83 Resp 16 B/P (MAP) 112/76 (88) Pulse Ox 97 O2 Delivery Room Air FiO2 21 Capillary Refill : Less Than 3 SecondsLess Than 3 Seconds I&O Intake and Output 05/23/18 00:00 Intake Total 2406 ml Output Total 100 ml Balance 2306 ml Intake Oral 1406 ml IV Total 1000 ml Output Urine Total 100 ml # Voids 10 General: Alert, Oriented X3, Cooperative HEENT: Atraumatic, PERRLA Neck: Supple, No JVD, No Thyromegaly Lungs: Clear to Auscultation, Normal Air Movement Heart: Regular Rate, Normal S1, Normal S2, No Murmurs Abdomen: Normal Bowel Sounds, Soft, No Tenderness, No Hepatosplenomegaly, No Masses Extremities: No Clubbing, No Cyanosis, No Edema, Normal Pulses, No Tenderness/ Swelling Skin: No Rashes, No Breakdown, No Significant Lesion Neuro: Normal Gait, Normal Speech, Strength at 5/5 X4 Ext, Normal Tone, Sensation Intact Psych/Mental Status: Mental Status NL Results Lab Laboratory Tests 05/23/18 03:50 A/P-Cardiology Admission Diagnosis Chest pain resembling angina Coronary artery disease Hypertension Hyperlipidemia Assessment/Plan Chest pain resembling angina, reporting improvement. Continue to monitor Coronary artery disease, history of non-ST elevation microinfarction in April 2017 underwent stent deployment using Alpine 2.2528 mm to the right coronary artery, returned for staged intervention to the left circumflex artery using another drug-eluting stent Alpine 2.2523 mm. Had a borderline lesion in the left main coronary artery 40 percent with FFR of 1. Underwent cardiac catheterization after having an abnormal stress test resulted in stenting to the circumflex artery proximal to the or stent using Alpine 2.2512 millimeter expanded to 2.45, the right coronary artery has severe stenosis distally at the bifurcation point, fairly small artery. Will need to have a staged intervention if he became symptomatic. Currently feeling better. I instructed him to contact me or Dr. José if he started having chest pain again. 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 History of paroxysmal atrial fibrillation. History of palpitation. Maintained on Eliquis. Continue to monitor at this time Hypertension, controlled, continue to monitor blood pressure Hyperlipidemia, hypertriglyceridemia, maintained on Lipitor 80 mg daily, we discussed in length diet control and tighter diabetic control History of chronic dyspnea on exertion, heavy tobaccoism, has cut down on his smoking. Tobaccoism, used to smoke up to 3 packs a day, has been down to less than a pack a day, educated on smoking cessation. Diabetes mellitus, followed and managed by primary care physician. Clinical Quality Measures AMI/AHF: ASA po Prior to arrival: No DVT/VTE Risk/Contraindication: Risk Factor Score Per Nursin RFS Level Per Nursing on Admit: 3=High BRITTANY TERRELL MD May 23, 2018 08:39
[2018-05-23] MEDS ORDERED: ASPI-983 PO (08:40)
--- NOTE | 2018-05-23 08:41 | Discharge Inst-Post CATH ---
Discharge Inst-CATH Post Cardiac Cath D/C Inst Follow Up/Plan Hold metformin for [address] José's office in 2 weeks CARDIAC CATH DISCHARGE INSTRUCTIONS *Hold Metformin for 48 hours post heart cath. ACTIVITY * Go Home directly and rest. * Limit activity of the leg (or wrist if it was used) for 7 days including aerobics, swimming, jogging, bicycling, etc. * Restrict stair-climbing for 7 days if possible, if not, climb up with your non -cath leg, then bring together on the same step. * Avoid lifting, pushing, pulling or excessive movement of the affected extremity for 7 days. * Customary sexual activity may be resumed after 2 days-use caution not to use a position that strains or causes pain to the affected extremity. * No driving for 24 hours. * NO SMOKING. * Avoid straining for bowel movements for 7 days. * Gentle walking on level ground is allowed. * Returning to work will depend on the type of procedure and the results. Your doctor will discuss this with you. CALL YOUR DOCTOR FOR ANY OF THE FOLLOWING: *If bleeding from the puncture site occurs- Apply gentle pressure to site with clean cloth and call your doctor or EMS. * If a knot or lump forms under the skin, increases in size, or causes pain. * If bruising appears to be worsening or moving further down your leg instead of disappearing. * Temperature above 101 F. CARE OF YOUR GROIN INCISION; * Bruising or purple discoloration of the skin near the puncture site is common. * You may shower only, no bathtub bathing for 5 days. Be careful to avoid slipping as your leg may feel stiff. * If a closure device was used on your femoral artery, please see the attached guide regarding care of the device and your leg. * REMOVE the dressing from your groin the next day after your procedure in the shower. CARE OF YOUR WRIST INCISION; * Bruising or purple discoloration of the skin near the puncture site is common. * You may shower. * DO NOT submerge wrist. * Remove dressing in 24 hours. BRITTANY TERRELL MD May 23, 2018 08:41
--- NOTE | 2018-05-23 08:56 | Discharge Instructions ---
Discharge [facility] Discharge Medications New Medications: Aspirin (Aspirin EC) 81 Mg Tablet. 81 MG PO DAILY, #100 TAB 2 Refills Continued Medications: Apixaban (Eliquis) 5 Mg Tablet 5 MG PO BID, TAB Atorvastatin Calcium (Lipitor) 80 Mg Tablet 80 MG PO HS, TAB Budesonide/Formoterol Fumarate (Symbicort 160-4.5 Mcg Inhaler) 10.2 Gm Hfa.aer.ad 2 PUFF IH BID, INHALER Cholecalciferol (Vitamin D3) (Vitamin D) 5,000 Unit Capsule 5000 UNIT PO Fr, CAP Clopidogrel Bisulfate (Plavix) 75 Mg Tablet 75 MG PO DAILY, TAB Glipizide (Glipizide) 10 Mg Tablet 10 MG PO BID, TAB LAST FILLED 12-12-17 #180 Liraglutide (Victoza 3-Paresh) 0.6 Mg/0.1 Ml Pen.injctr 1.8 MG SQ 1800, VIAL Lisinopril (Lisinopril) 20 Mg Tablet 20 MG PO HS, TAB Omeprazole Magnesium (Prilosec Otc) 20 Mg Tablet.dr 20 MG PO DAILY, TAB Discontinued Medications: Metformin HCl (Metformin HCl) 1,000 Mg Tablet 1000 MG PO BID, TAB LAST FILLED #60 01-08-18 Patient Instructions Goal/Follow Up Appt: Follow up with Dr. José in 2 weeks. Follow up with Dr. Kingsley as scheduled previously. Patient Instructions: Restart metformin 48 hours after your catheterization. Return to The Hospital For: Chest pain Activity & Diet Discharge Diet: ADA Diet, Cardiac Diet Activity as Tolerated: No (see cath instructions) Orders-Post D/C & Referrals Pneu Vac Indicated: Yes Copy Copies To 1: DUNIA KINGSLEY MD, BETHANY N MD May 23, 2018 08:56
--- NOTE | 2018-05-23 08:57 | Discharge Summary ---
Diagnosis/Chief Complaint Date of Admission May 20, 2018 at 4:53 pm Date of Discharge May 23, 2018 Admission Diagnosis Admission Diagnosis (1) Chest pain Status: Acute Qualifiers: Qualified Codes: R07.9 - Chest pain, unspecified (2) Coronary artery disease Status: Chronic Qualifiers: Qualified Codes: I25.110 - Atherosclerotic heart disease of [place] coronary artery with unstable angina pectoris (3) Diabetes mellitus, type 2 Status: Chronic Qualifiers: Qualified Codes: E11.65 - Type 2 diabetes mellitus with hyperglycemia (4) GERD (gastroesophageal reflux disease) Status: Chronic (5) Hypertension Status: Chronic Qualified Codes: I10 - Essential (primary) hypertension (6) Hyperlipidemia Status: Chronic (7) Paroxysmal atrial fibrillation Status: Chronic (8) COPD (chronic obstructive pulmonary disease) Status: Chronic Discharge Diagnosis (1) Chest pain Status: Acute Assessment & Plan: High risk history, troponins negative, no acute EKG changes , Cardiology consulted, stress test today 05/22 stress test abnormal, cath this am with stenosis in circumflex stented proximal to prior stent with overlapping stenting as well as note of possible distal edge dissection in right coronary artery stent. Medical management for right coronary for now per Cardiology, will depend on symptomatology. Discussed with patient the importance of blood sugar control, blood pressure control and especially smoking cessation. Qualifiers: Qualified Codes: R07.9 - Chest pain, unspecified (2) Coronary artery disease Status: Chronic Assessment & Plan: s/p stenting in 2017 05/22 additional stent this am as noted above Qualifiers: Qualified Codes: I25.110 - Atherosclerotic heart disease of [place] coronary artery with unstable angina pectoris (3) Diabetes mellitus, type 2 Status: Chronic Assessment & Plan: Resume home medications except liraglutide which is non- formulary, discussed if they bring from home we can have pharmacy verify so he can use Sliding scale insulin 05/22 metformin on hold for contrast Qualifiers: Qualified Codes: E11.65 - Type 2 diabetes mellitus with hyperglycemia (4) GERD (gastroesophageal reflux disease) Status: Chronic Assessment & Plan: Continue home medications (5) Hypertension Status: Chronic Assessment & Plan: Resume home medications Qualifiers: Qualified Codes: I10 - Essential (primary) hypertension (6) Hyperlipidemia Status: Chronic Assessment & Plan: Resume home meds (7) Paroxysmal atrial fibrillation Status: Chronic Assessment & Plan: Stable, continue apixaban (8) COPD (chronic obstructive pulmonary disease) Status: Chronic Assessment & Plan: Resume home inhalers Chief Complaint/HPI Chief Complaint/HPI 52 yo male presented to ER due to worsening chest pain over the last few weeks. He has had chest pain for at least a couple of weeks, and has had mild brief episodes on and off since he had cardiac event in the past. However, it became more severe yesterday and was associated with some shortness of air and dizziness, so he felt he should come in. He also notes he has increasing frequency of "boils" in his groin and axilla which he has had since teenage years, but usually every 5-6 months, and now rather persistent. He states his blood sugar had been running 120-140 with occasional 160 or 170 over the last month but in the last week has had some higher. Discharge Summary-Simple/Stand Procedures Stress test Cardiac catheterization with intervention Consultations Dr. Flowers (Cardiology) Discharge Physical Examination Allergies: Coded Allergies: bee pollen (Unverified Allergy, Mild, 05/20/18) Vitals & I&Os Vital Sign - Last 12Hours Date Time Temp Pulse Resp B/P (MAP) Pulse Ox O2 Delivery O2 Flow Rate FiO2 05/23/18 06:52 97 Room Air 05/23/18 04:00 98.0 83 16 112/76 (88) 05/20/18 20:06 21 Intake and Output 05/23/18 00:00 Intake Total 2406 ml Output Total 100 ml Balance 2306 ml General Appearance: Alert, No Acute Distress Respiratory: Clear to Auscultation, Normal Air Movement Cardiovascular: Regular Rate, No Murmurs Psych/Mental Status: Mental Status NL, Mood NL Hospital Course See final discharge diagnosis. Labs Laboratory Tests Test 05/21/18 16:51 05/21/18 21:01 05/22/18 05:17 05/22/18 10:05 Range/Units Glucometer 251 H 222 H 223 H 70-110 MG/DL Activated Partial Thromboplast Time 77 H 24-35 SEC Test 05/22/18 12:31 05/22/18 16:33 05/22/18 20:47 05/23/18 03:50 Range/Units Glucometer 256 H 253 H 127 H 70-110 MG/DL White Blood Count 8.3 4.3-11.0 10^3/uL Red Blood Count 4.95 4.35-5.85 10^6/uL Hemoglobin 13.6 13.3-17.7 G/DL Hematocrit 39 L 40-54 % Mean Corpuscular Volume 79 L 80-99 FL Mean Corpuscular Hemoglobin 28 25-34 PG Mean Corpuscular Hemoglobin Concent 35 32-36 G/DL Red Cell Distribution Width 14.5 10.0-14.5 % Platelet Count 240 130-400 10^3/uL Mean Platelet Volume 10.6 H 7.4-10.4 FL Sodium Level 136 135-145 MMOL/L Potassium Level 3.9 3.6-5.0 MMOL/L Chloride Level 106 98-107 MMOL/L Carbon Dioxide Level 20 L 21-32 MMOL/L Anion Gap 10 5-14 MMOL/L Blood Urea Nitrogen 9 7-18 MG/DL Creatinine 0.74 0.60-1.30 MG/DL Estimat Glomerular Filtration Rate > 60 BUN/Creatinine Ratio 12 Glucose Level 162 H 70-105 MG/DL Calcium Level 9.0 8.5-10.1 MG/DL Test 05/23/18 06:26 Range/Units Glucometer 187 H 70-110 MG/DL Discharge Instructions to patient/family Please see electronic discharge instructions given to patient. Discharge Medications Reviewed and agree with Discharge Medication list on patient's Discharge Instruction sheet Clinical Quality Measures AMI/AHF: ASA po Prior to arrival: No DVT/VTE Risk/Contraindication: Risk Factor Score Per Nursin RFS Level Per Nursing on Admit: 3=High Copy Copies To 1: DUNIA SANTOS MD, BETHANY N MD May 23, 2018 08:57
[2018-05-23] MEDS ORDERED: ASPIRIN E.C. 81 MG (ECOTRIN) TAB PO SCH (09:00)
[2018-05-23] MEDS: CLOPIDOGREL 75 MG (PLAVIX) TABLET PO SCH (09:32)
--- OUTSIDE RECORDS SUMMARY | 2018-05-24 18:28 | XMS REPORT | Continuity of Care Document ---
Author Author [facility] Organization [facility] Address Unknown Phone Unavailable Allergies Active Description Code Type Severity Reaction Onset Reported/Identified Relationship to Patient Clinical Status Yes Bee Pollen [id number] Drug Allergy Mild N/A 12/29/2009 Medications There [...] Ot 719.46 JOINT PAIN-L/LEG 04/05/2015 MARKUS GONZALEZ ATHLETE MANAGER Ot 815.00 04/05/2015 MARKUS GONZALEZ ATHLETE MANAGER Ot 959.5 04/05/2015 MARKUS GONZALEZ ATHLETE MANAGER Ot E000.0 04/05/2015 MARKUS GONZALEZ ATHLETE MANAGER Ot E919.0 05/03/2015 MELONIE RUIZ DO Ot [...] CCDS Ot R00.2 PALPITATIONS 08/03/2016 ISAAK VANCE [facility], ALI FACP CCDS Ot I10 ESSENTIAL (PRIMARY) HYPERTENSION 08/03/2016 ISAAK VANCE [facility], ALI FACP CCDS Ot R00.0 TACHYCARDIA, UNSPECIFIED 08/03/2016 ISAAK VANCE [facility], ALI FACP CCDS Ot R00.2 PALPITATIONS 08/03/2016 [...] 08/03/2016 ANGIE MENENDEZ DOA K Ot Z79.84 CLERICAL ADJUDICATOR (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 OF ORAL HYPOGLYC 08/03/2016 ANGIE MENENDEZ DOA K Ot Z79.899 OTHER SKILLED NURSING (CURRENT) DRUG THERAPY 08/03/2016 ANGIE MENENDEZ DOA [...] ML 08/04/2016 CLYDE MENENDEZ DO Ot Z79.84 SKILLED NURSING (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 OF ORAL HYPOGLYC 08/04/2016 CLYDE MENENDEZ DO Ot Z79.899 OTHER SKILLED NURSING (CURRENT) DRUG THERAPY 08/04/2016 CLYDE MENENDEZ DO [...] FACC, ALI FACP CCDS Ot Z79.899 OTHER SKILLED NURSING (CURRENT) DRUG THERAPY 08/18/2016 EDNA RUBALCAVA Ot [...] QUADRANT PAIN 08/18/2016 EDNA RUBALCAVA Ot Z79.84 CLERICAL ADJUDICATOR (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 OF ORAL HYPOGLYC 08/18/2016 EDNA RUBALCAVA Ot Z79.899 OTHER CLERICAL ADJUDICATOR (CURRENT) DRUG THERAPY 09/16/2016 ISAAK VANCE FACC, [...] FACC, ALI FACP CCDS Ot Z79.899 OTHER SKILLED NURSING (CURRENT) DRUG THERAPY 10/24/2016 ISAAK VANCE FACC, [...] FACC, ALI FACP CCDS Ot Z79.899 OTHER CLERICAL ADJUDICATOR (CURRENT) DRUG THERAPY 05/02/2017 WOLF DO HUNTER [...] HUNTER Ot I25.10 ATHSCL HEART DISEASE OF [place] CORONARY 05/02/2017 WOLF DO HUNTER Ot I48.0 [...] ADULT 05/02/2017 BLOOMHUNTER MONCADA DO Ot Z79.01 CLERICAL ADJUDICATOR (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 OF ANTICOAGULANT 06/13/2017 ISAAK PONCEC, [...] CCDS Ot I25.10 ATHSCL HEART DISEASE OF [place] CORONARY 06/20/2017 ISAAK VANCE FACC, ALI FACP CCDS Ot E78.4 OTHER HYPERLIPIDEMIA 06/20/2017 ISAAK VANCE FACC, ALI FACP CCDS Ot I25.10 ATHSCL HEART DISEASE OF [place] CORONARY 06/20/2017 ISAAK VACNE FACC, ALI FACP CCDS Ot E78.4 OTHER HYPERLIPIDEMIA 06/20/2017 ISAAK VANCE FACC, ALI FACP CCDS Ot I25.10 ATHSCL HEART DISEASE OF [place] CORONARY Procedures Code Description Performed By Performed On 320647V DILATION OF 1 COR ART WITH DRUG-ELUT INT 04/30/2017 4H015S5 MEASURE OF CARDIAC SAMPL PRESSURE, L H 04/30/2017 5E369ZS MEASUREMENT OF ARTERIAL PRESSURE, CENTENO 04/30/2017 [id number] FLUOROSCOPY OF MULT COR ART USING L OSM 04/30/2017 [id number] FLUOROSCOPY OF R LOW EXTREM ART USING L 04/30/2017 507715J DILATION OF 1 COR ART WITH DRUG-ELUT INT 05/01/2017 [id number] FLUOROSCOPY OF SINGLE CORONARY ARTERY US 05/01/2017 [id number] FLUOROSCOPY OF AORTA, BI LE ART USING L 05/01/2017 [id number] FLUOROSCOPY OF R LOW EXTREM ART USING [...] Status Pt. Type Provider Facility Loc./Unit Complaint [id number] 06/12/2017 07:28:00 06/12/2017 23:59:59 CLS Outpatient DEANA MULLIGAN MD, FACC, FACP CCDS [facility] LAB I25.10,E78.4 [id number] 04/30/2017 17:47:00 05/02/2017 12:30:00 DIS Inpatient BLOOM DO HUNTER [facility] ICU NSTEMI,LEFT BASILAR PNA [id number] 08/18/2016 14:06:00 08/18/2016 16:46:00 DIS Emergency EDNA RUBALCAVA [facility] ER POSS KIDNEY STONE/ UNABLE TO URINATE [id number] 08/15/2016 12:15:00 08/15/2016 14:00:00 DIS Outpatient DEANA MULLIGAN MD, FACC, FACP CCDS [facility] CATH PALPITATIONS, PAF [id number] 08/03/2016 19:22:00 08/03/2016 21:28:00 DIS Emergency CLYDE MENENDEZ DO [facility] ER CP [id number] 10/21/2015 06:53:00 10/21/2015 23:59:59 CLS Outpatient DEANA MULLIGAN MD, FACC, FACP CCDS [facility] CARD HTN, TACHYCARDIA,PALPITATIONS [id number] 10/20/2015 11:42:00 10/20/2015 23:59:59 CLS Outpatient ISAAK VANCE FACC, DEANA CARVER CCDS [facility] CARD HTN, TACHYCARDIA [id number] 05/03/2015 05:23:00 05/03/2015 07:12:00 DIS Emergency MELONIE RUIZ DO [facility] ER L HIP PAIN [id number] 04/05/2015 17:38:00 04/05/2015 18:30:00 DIS Emergency MARKUS GONZALEZ ATHLETE MANAGER [facility] ER [id number] 01/10/2015 21:31:00 01/10/2015 22:29:00 DIS Emergency CHAPO WATTS MD [facility] ER [id number] 01/10/2015 21:31:00 Document Registration [id number] 05/12/2012 19:00:00 Document Registration [id number] 09/12/2016 18:05:00 Document Registration [id number] 07/12/2016 10:05:00 Document Registration [id number] 03/19/2017 11:07:00 Document Registration [id number] 02/19/2018 09:20:00 02/19/2018 23:59:59 CLS Outpatient DUNIA SANTOS MD [facility] [id number] 11/16/2017 08:40:00 Document Registration
== END 2018-05-23 10:40 | disposition home or self-care (01) ==
LOC: EDUNIT# 14:50 → ER 14:53 → 4TH 16:53 → UNDOADMOB 16:53 → 4TH 16:54 → CATH 17:12 → 4TH 17:12 → ICU 05-22 09:24 → 4TH 05-22 09:24 → CATH 05-23 10:40 → UNDODISOB 05-23 10:40
PROVIDERS: ATTEND Family Medicine
DX: R07.9 Chest pain, unspecified (principal); I25.110 Atherosclerotic heart disease of native coronary artery with unstable angina pectoris; E11.65 Type 2 diabetes mellitus with hyperglycemia; K21.9 Gastro-esophageal reflux disease without esophagitis; I10 Essential (primary) hypertension; E78.5 Hyperlipidemia, unspecified; E78.1 Pure hyperglyceridemia; I48.0 Paroxysmal atrial fibrillation; J44.9 Chronic obstructive pulmonary disease, unspecified; F17.210 Nicotine dependence, cigarettes, uncomplicated; Z95.5 Presence of coronary angioplasty implant and graft; Z79.01 Long term (current) use of anticoagulants
CPT/HCPCS: 36415; 71045; 78452; 80048; 80053; 80061; 82550; 82962; 83690; 83735; 83874; 83880; 84484; 85025; 85027; 85379; 85610; 85730; 87081; 93005; 93017; 93041; 93454; 94640; 94760; G0378

== ENCOUNTER 2018-07-23 06:56 | Day surgery (SDC) | payer OTHER ==
[2018-07-23] VITALS (15 sets, daily range): BP systolic 92–127; BP diastolic 54–77
[~2018-07-23] VITALS: Ht 175.3 cm; Wt 98.9 kg
[~2018-07-23 06:56] MED LIST changes: +ASPI-983 PO; +ATOR80TA64 PO; +CLOP75TA69 PO; +METF-399 PO; -METF10002 PO; +OMEP20TA33 PO
[2018-07-23] MEDS ORDERED: LIDOCAINE 1% INJ 20 ML 20 ML VIAL ONE (06:58)
[2018-07-23] MEDS ORDERED: HEParin (CATH LAB) 2,000 ML IV ONE (06:58)
[2018-07-23] MEDS ORDERED: NS IV 1000 ML 1,000 ML ONE ×2 (06:58→08:46)
--- OUTSIDE RECORDS SUMMARY | 2018-07-23 07:02 | XMS REPORT | Continuity of Care Document ---
Author Author [facility] Organization [facility] Address Unknown Phone Unavailable Allergies Active Description Code Type Severity Reaction Onset Reported/Identified Relationship to Patient Clinical Status Yes Bee Pollen [id number] Drug Allergy Mild N/A 05/20/2018 Medications There is no data. Problems Date [...] Ot 719.46 JOINT PAIN-L/LEG 04/05/2015 MARKUS GONZALEZ RIGGER CHIEF Ot 815.00 04/05/2015 MARKUS GONZALEZ RIGGER CHIEF Ot 959.5 04/05/2015 MARKUS GONZALEZ RIGGER CHIEF Ot E000.0 04/05/2015 MARKUS GONZALEZ RIGGER CHIEF Ot E919.0 05/03/2015 MELONIE RUIZ DO Ot 719.45 JOINT PAIN-PELVIS 05/03/2015 MELONIE RUIZ DO Ot 724.3 SCIATICA 03/28/2016 ISAAK VANCE FACC, DEANA CARVER CCDS Ot R00.2 PALPITATIONS 03/28/2016 ISAAK VANCE [...] CCDS Ot R00.2 PALPITATIONS 08/03/2016 ISAAK VANCE [facility], ALI FACP CCDS Ot I10 ESSENTIAL (PRIMARY) HYPERTENSION 08/03/2016 ISAAK VANCE [facility], ALI FACP CCDS Ot R00.0 TACHYCARDIA, UNSPECIFIED 08/03/2016 ISAAK VANCE [facility], ALI FACP CCDS Ot R00.2 [...] 08/03/2016 ANGIE MENENDEZ DOA K Ot Z79.84 PRODUCTION SHIFT SUPERVISOR (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 OF ORAL HYPOGLYC 08/03/2016 ANGIE MENENDEZ DOA K Ot Z79.899 OTHER SENIOR CARE (CURRENT) DRUG THERAPY 08/03/2016 ANGIE MENENDEZ DOA [...] ML 08/04/2016 CLYDE MENENDEZ DO Ot Z79.84 SENIOR CARE (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 OF ORAL HYPOGLYC 08/04/2016 CLYDE MENENDEZ DO Ot Z79.899 OTHER SENIOR CARE (CURRENT) DRUG THERAPY 08/04/2016 CLYDE MENENDEZ DO [...] FACC, ALI FACP CCDS Ot Z79.899 OTHER SENIOR CARE (CURRENT) DRUG THERAPY 08/18/2016 EDNA RUBALCAVA Ot [...] QUADRANT PAIN 08/18/2016 EDNA RUBALCAVA Ot Z79.84 PRODUCTION SHIFT SUPERVISOR (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 OF ORAL HYPOGLYC 08/18/2016 EDNA RUBALCAVA Ot Z79.899 OTHER PRODUCTION SHIFT SUPERVISOR (CURRENT) DRUG THERAPY 09/16/2016 ISAAK VANCE FACC, [...] FACC, ALI FACP CCDS Ot Z79.899 OTHER SENIOR CARE (CURRENT) DRUG THERAPY 10/24/2016 ISAAK VANCE FACC, [...] FACC, ALI FACP CCDS Ot Z79.899 OTHER PRODUCTION SHIFT SUPERVISOR (CURRENT) DRUG THERAPY 05/02/2017 WOLF DO HUNTER [...] HUNTER Ot I25.10 ATHSCL HEART DISEASE OF [place] CORONARY 05/02/2017 WOLF DO HUNTER Ot I48.0 PAROXYSMAL ATRIAL FIBRILLATION 05/02/2017 WOLF DO HUNTER Ot I48.91 UNSPECIFIED ATRIAL FIBRILLATION 05/02/2017 WOLF TORRES HUNTER Ot J18.9 PNEUMONIA, UNSPECIFIED ORGANISM 05/02/2017 WOLF TORRES HUNTER Ot J44.9 CHRONIC OBSTRUCTIVE PULMONARY DISEASE, U 05/02/2017 SOBEIDA BLOOM DOI Ot K21.9 GASTRO-ESOPHAGEAL REFLUX DISEASE WITHOUT 05/02/2017 HUNTER BLOOM DO Ot Z68.33 BODY MASS INDEX (BMI) 33.0-33.9, ADULT 05/02/2017 HUNTER BLOOM DO Ot Z68.38 BODY MASS INDEX (BMI) 38.0-38.9, ADULT 05/02/2017 SOBEIDA BLOOM DOI Ot Z79.01 PRODUCTION SHIFT SUPERVISOR (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 OF ANTICOAGULANT 06/13/2017 ISAAK VANCE FACC, ALI FACP CCDS [...] CCDS Ot I25.10 ATHSCL HEART DISEASE OF [place] CORONARY 06/20/2017 ISAAK VANCE FAC, ALI FACP CCDS Ot E78.4 OTHER HYPERLIPIDEMIA 06/20/2017 ISAAK VANCE FAC, ALI FACP CCDS Ot I25.10 ATHSCL HEART DISEASE OF [place] CORONARY 06/20/2017 ISAAK VANCE FACC, ALI FACP CCDS Ot E78.4 OTHER HYPERLIPIDEMIA 06/20/2017 ISAAK VANCE FACC, ALI FACP CCDS Ot I25.10 ATHSCL HEART DISEASE OF [place] CORONARY 05/23/2018 DUNIA SANTOS MD Ot E11.65 TYPE 2 DIABETES MELLITUS WITH HYPERGLYCE 05/23/2018 DUNIA SANTOS MD Ot E78.1 PURE HYPERGLYCERIDEMIA 05/23/2018 DUNIA SANTOS MD Ot E78.5 HYPERLIPIDEMIA, UNSPECIFIED 05/23/2018 DUNIA SANTOS MD Ot F17.210 NICOTINE DEPENDENCE, CIGARETTES, UNCOMPL 05/23/2018 DUNIA SANTOS MD Ot I10 ESSENTIAL (PRIMARY) HYPERTENSION 05/23/2018 DUNIA SANTOS MD Ot I25.110 ATHSCL HEART DISEASE OF [place] COR ART W 05/23/2018 DANIELLE MD, DUNIA N Ot I48.0 PAROXYSMAL ATRIAL FIBRILLATION 05/23/2018 DUNIA SANTOS MD Ot J44.9 CHRONIC OBSTRUCTIVE PULMONARY DISEASE, U 05/23/2018 DUNIA SANTOS MD Ot K21.9 GASTRO-ESOPHAGEAL REFLUX DISEASE WITHOUT 05/23/2018 DUNIA SANTOS MD Ot R07.9 CHEST PAIN, UNSPECIFIED 05/23/2018 DUNIA SANTOS MD Ot Z79.01 SENIOR CARE (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 OF ANTICOAGULANT 05/23/2018 DUNIA SANTOS MD Ot Z95.5 PRESENCE OF CORONARY ANGIOPLASTY IMPLANT 05/24/2018 DUNIA SANTOS MD Ot E11.65 TYPE 2 DIABETES MELLITUS WITH HYPERGLYCE 05/24/2018 DUNIA SANTOS MD Ot E78.1 PURE HYPERGLYCERIDEMIA 05/24/2018 DUNIA SANTOS MD Ot E78.5 HYPERLIPIDEMIA, UNSPECIFIED 05/24/2018 DUNIA SANTOS MD Ot F17.210 NICOTINE DEPENDENCE, CIGARETTES, UNCOMPL 05/24/2018 DUNIA SANTOS MD Ot I10 ESSENTIAL (PRIMARY) HYPERTENSION 05/24/2018 DUNIA SANTOS MD Ot I25.110 ATHSCL HEART DISEASE OF [place] COR ART W 05/24/2018 DUNIA SANTOS MD Ot I48.0 PAROXYSMAL ATRIAL FIBRILLATION 05/24/2018 DUNIA SANTOS MD Ot J44.9 CHRONIC OBSTRUCTIVE PULMONARY DISEASE, U 05/24/2018 DUNIA SANTOS MD Ot K21.9 GASTRO-ESOPHAGEAL REFLUX DISEASE WITHOUT 05/24/2018 DUNIA SANTOS MD Ot R07.9 CHEST PAIN, UNSPECIFIED 05/24/2018 DUNIA SANTOS MD Ot Z79.01 PRODUCTION SHIFT SUPERVISOR (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 OF ANTICOAGULANT 05/24/2018 DUNIA SANTOS MD Ot Z95.5 PRESENCE OF CORONARY ANGIOPLASTY IMPLANT 07/09/2018 ISAAK VANCE FACC, ALI FACP CCDS Ot R00.2 PALPITATIONS 07/09/2018 ISAAK VANCE FACC, ALI FACP CCDS Ot I10 ESSENTIAL (PRIMARY) HYPERTENSION 07/09/2018 ISAAK VANCE FACC, ALI FACP CCDS Ot R00.0 TACHYCARDIA, UNSPECIFIED 07/09/2018 ISAAK VANCE FACC, ALI FACP CCDS Ot R00.2 PALPITATIONS Procedures Code Description Performed By Performed On 548957F DILATION OF 1 COR ART WITH DRUG-ELUT INT 04/30/2017 [id number] MEASURE OF CARDIAC SAMPL PRESSURE, L H 04/30/2017 8R592CX MEASUREMENT OF ARTERIAL PRESSURE, CENTENO 04/30/2017 [id number] FLUOROSCOPY OF MULT COR ART USING L OSM 04/30/2017 [id number] FLUOROSCOPY OF R LOW EXTREM ART USING L 04/30/2017 276701M DILATION OF 1 COR ART WITH DRUG-ELUT INT 05/01/2017 [id number] FLUOROSCOPY OF SINGLE CORONARY ARTERY US 05/01/2017 [id number] FLUOROSCOPY OF AORTA, BI LE ART USING L 05/01/2017 [id number] FLUOROSCOPY OF R LOW EXTREM ART USING [...] - 04/30/17 18:00 Bacterial blood culture NG NR Blood lactic acid measurement (moles/volume) - 04/30/17 [...] Status Pt. Type Provider Facility Loc./Unit Complaint [id number] 07/09/2018 11:30:00 07/09/2018 23:59:59 CLS Preadmit DEANA MULLIGAN MD, FACC, FACP CCDS [facility] CARD SOB [id number] 05/20/2018 17:12:00 05/23/2018 10:40:00 DIS Outpatient DUNIA SANTOS MD [facility] CATH CHEST PAIN [id number] 06/12/2017 07:28:00 06/12/2017 23:59:59 CLS Outpatient DEANA MULLIGAN MD, FACC, FACP CCDS [facility] LAB I25.10,E78.4 [id number] 04/30/2017 17:47:00 05/02/2017 12:30:00 DIS Inpatient HUNTER BLOOM DO [facility] ICU NSTEMI,LEFT BASILAR PNA [id number] 08/18/2016 14:06:00 08/18/2016 16:46:00 DIS Emergency EDNA RUBALCAVA [facility] ER POSS KIDNEY STONE/ UNABLE TO URINATE [id number] 08/15/2016 12:15:00 08/15/2016 14:00:00 DIS Outpatient ISAAK VANCE FACC, ALI FACP CCDS [facility] CATH PALPITATIONS, PAF [id number] 08/03/2016 19:22:00 08/03/2016 21:28:00 DIS Emergency CLYDE MENENDEZ DO [facility] ER CP [id number] 10/21/2015 06:53:00 10/21/2015 23:59:59 CLS Outpatient ISAAK VANCE FACC, ALI FACP CCDS [facility] CARD HTN, TACHYCARDIA,PALPITATIONS [id number] 10/20/2015 11:42:00 10/20/2015 23:59:59 CLS Outpatient ISAAK VANCE FACC, ALI FACP CCDS [facility] CARD HTN, TACHYCARDIA [id number] 05/03/2015 05:23:00 05/03/2015 07:12:00 DIS Emergency MELONIE RUIZ DO [facility] ER L HIP PAIN [id number] 04/05/2015 17:38:00 04/05/2015 18:30:00 DIS Emergency MARKUS GONZALEZ APRN [facility] ER [id number] 01/10/2015 21:31:00 01/10/2015 22:29:00 DIS Emergency CHAPO WATTS MD [facility] ER [id number] 07/23/2018 09:00:00 PEN Preadmit ISAAK VANCE FACC, ALI FACP CCDS [facility] CATH STABLE ANGINA PECTORIS [id number] 01/10/2015 21:31:00 Document Registration [id number] 05/12/2012 19:00:00 Document Registration [id number] 09/12/2016 18:05:00 Document Registration [id number] 07/12/2016 10:05:00 Document Registration [id number] 03/19/2017 11:07:00 Document Registration [id number] 02/19/2018 09:20:00 02/19/2018 23:59:59 [facility] Mahamed SANTOS MD, DUNIA Lopez [facility] [id number] 11/16/2017 08:40:00 Document Registration
[2018-07-23] MEDS ORDERED: NS IV 1000 ML 1,000 ML IV SCH ×2 (07:15→09:37)
[2018-07-23 07:21] LABS: HEMOGLOBIN 14.8 G/DL (13.3-17.7); MEAN PLATELET VOLUME 10.2 FL (7.4-10.4); RED BLOOD COUNT 5.48 10^6/uL (4.35-5.85); RED CELL DISTRIBUTION WIDTH 14.9 % (10.0-14.5); WHITE BLOOD COUNT 11.6 10^3/uL (4.3-11.0)
[2018-07-23] MEDS ORDERED: HEParin 1000 UNIT/ML (10ML VIAL) FOR BOLUS ONE (07:22)
[2018-07-23] MEDS ORDERED: MIDAZOLAM 5 MG/5 ML (VERSED) VIAL ONE (07:22)
[2018-07-23] MEDS ORDERED: fentaNYL INJECTION 100 MCG/2 ML AMP ONE ×2 (07:22→10:05)
[2018-07-23] MEDS ORDERED: METF-399 PO (07:25)
[2018-07-23] MEDS ORDERED: DILT180C84 PO (07:25)
[2018-07-23] MEDS ORDERED: INSU100V6 SQ (07:25)
[2018-07-23 07:33] LABS: PROTHROMBIN TIME PATIENT 13.1 SEC (12.2-14.7)
[2018-07-23 07:39] LABS: ALANINE AMINOTRANSFERASE 21 U/L (0-55); ALBUMIN 4.5 GM/DL (3.2-4.5); ALKALINE PHOSPHATASE 90 U/L (40-136); BILIRUBIN,TOTAL 0.5 MG/DL (0.1-1.0); BUN/CREATININE RATIO 21; CALCIUM 9.5 MG/DL (8.5-10.1); CARBON DIOXIDE 20 MMOL/L (21-32); CHLORIDE 104 MMOL/L (98-107); CHOLESTEROL 183 MG/DL (< 200); CREATININE SERUM 1.04 MG/DL (0.60-1.30); GFR ESTIMATED > 60; GLUCOSE 220 MG/DL (70-105); HDL CHOLESTEROL 29 MG/DL (40-60); POTASSIUM 3.9 MMOL/L (3.6-5.0); SODIUM 135 MMOL/L (135-145); TOTAL PROTEIN 8.1 GM/DL (6.4-8.2); TRIGLYCERIDES 305 MG/DL (<150); VLDL CHOLESTEROL 61 MG/DL (5-40)
[2018-07-23] MEDS ORDERED: FLU QUADRIvalent (5+ YOA) 2018-2019 (AFLURIA) 0.5 ML IM ONE (07:45)
[2018-07-23] MEDS ORDERED: NITRO DRIP 25000 MCG/D5W 250 ML IV ONE (08:29)
[2018-07-23] MEDS ORDERED: EPTIFIBATIDE BOLUS 20 ML IV ONE (08:38)
[2018-07-23] MEDS ORDERED: ASPIRIN 81 MG CHEW (CHILDREN'S ASA) ONE (09:00)
[2018-07-23] MEDS ORDERED: CLOPIDOGREL 300 MG (PLAVIX) TABLET PO ONE (09:00)
--- NOTE | 2018-07-23 09:36 | Cardiac Procedure Note-CS/ASA ---
Pre-Procedure Note Pre-Op Procedure Note H&P Reviewed The H&P was reviewed, patient examined and no changes noted. Date H&P Reviewed: Jul 23, 2018 Time H&P Reviewed: 08:15 Conscious Sedation Pre-Proced Time 08:15 ASA Score 3 For ASA 3 and 4: Consider anesthesia and medical clearance. Also, for patients with a history of failed moderate sedation consider anesthesia. Airway Lungs Heart ASA score ASA 1: a normal healthy patient ASA 2: a patient with a mild systemic disease (mid diabetes, controlled hypertension, obesity ASA 3: a patient with a severe systemic disease that limits activity (angina , COPD, prior Myocardial infarction) ASA 4: a patient with an incapacitating disease that is a constant threat to life (CHF, renal failure) ASA 5: a moribund patient not expected to survive 24 hrs. (ruptured aneurysm) ASA 6: a declared brain patient whose organs are being harvested. For emergent operations, add the letter E after the classification Mallampati Classification Grade 2 Sedation Plan Analgesia, Amnesia, Plan communicated to team members, Discussed options with patient/fam, Discussed risks with patient/fam The patient is an appropriate candidate to undergo the planned procedure, sedation, and anesthesia. The patient immediately re-assessed prior to indication. DEANA MULLIGAN MD FACP FAC CCDS Jul 23, 2018 09:36
[2018-07-23] MEDS ORDERED: PATIENT MAY USE OWN MEDS, ALL PO SCH (09:45)
[2018-07-23] MEDS ORDERED: ACETAMINOPHEN 325 MG TABLET PO PRN (09:45)
[2018-07-23] MEDS ORDERED: ISOSORBIDE MONONITRATE 60 MG (IMDUR) TAB PO NR (09:45)
[2018-07-23] MEDS: NS IV 1000 ML 1,000 ML IV SCH ×3 (10:15→23:24)
[2018-07-23] MEDS: fentaNYL INJECTION 100 MCG/2 ML AMP IVP PRN ×2 (10:15→10:53)
--- NOTE | 2018-07-23 11:33 | Diagnostic Imaging Report ---
EXAMINATION: Right low extremity arterial Doppler. INDICATION: Leg pain There are no prior studies available for comparison. By history the patient has had a recent heart catheterization procedure on the right. Spectral and color flow imaging of the right groin was performed. There is good arterial blood flow in the common femoral artery and vein. There is no sign of an AV fistula, pseudoaneurysm or any significant hematoma formation. IMPRESSION: There is no evidence for an acute vascular abnormality of the right groin. Dictated by: Dictated on workstation # [id number]
--- NOTE | 2018-07-23 11:52 | CARDIAC CATHETERIZATION ---
DATE OF SERVICE: 07/23/2018 CARDIAC CATHETERIZATION REPORT The patient is a 52-year-old man with coronary artery disease, has had multiple coronary interventions in the past and has been having exertional chest discomfort. Cardiac catheterization was carried out today after having obtained an informed consent for cardiac catheterization and possible ad hoc coronary intervention. His previous history is that he has had drug-eluting stenting of the right coronary with Alpine Xience 2.25 x [address] Payne on 04/30/2017 after the patient had presented with a non-ST elevation myocardial infarction. Later, on 05/01/2017, he had drug-eluting stenting of the left circumflex with an Alpine Xience 2.25 x [address] Payne. On 05/22/2018, he had further stenting of the proximal left circumflex, proximal to the previous stent, with Alpine Xience 2.25 x 12 mm stent. PROCEDURE: He was brought to the cardiac catheterization laboratory in a fasting state. Right groin was prepared and draped in the usual sterile fashion. Lidocaine 1% local anesthesia. Modified Seldinger technique was used to advance a 5-Chadian sheath in the right femoral artery. We used a 5-Chadian JL3.5 catheter for left coronary angiography and 5-Chadian JR4 catheter for right coronary angiography. We used pigtail catheter for left heart catheterization and left ventricular angiography. PERCUTANEOUS INTERVENTION TO THE RIGHT CORONARY ARTERY: Following completion of the diagnostic procedure, we attempted percutaneous intervention to the distal right coronary artery where the patient had 80% to 90% stenosis of RCA at the bifurcation into the posterior descending branch and the posterolateral system. We exchanged the sheath over a wire for a 7-Chadian sheath. We used a 7-Chadian JR4 guide catheter with side holes and a short tip. We used a BMW wire that was advanced across the lesion into the posterior descending branch and a Choice Floppy wire that was advanced across the lesion into the posterolateral segment of the distal right coronary artery and placed in a distal posterolateral branch. We then tried to advance balloons to the lesion, but we were unable to do so. This appears to be because of considerable coronary calcium and catching of the balloons at the proximal end of the previous stent in the distal right coronary artery. This stent appears to extend across the posterior descending branch of the right coronary artery just slightly into the posterolateral branch of the right coronary artery. We made multiple attempts, but we were not able to advance the balloons. We also tried to advance a stent to the proximal edge of the previous stent. The idea was to place a larger stent overlapping with the previous stent, because it seems that proximal edge of the previous stent may have a size mismatch (the vessel being of larger caliber at the proximal edge of the stent than the diameter of the stent). We were not able to advance any stents or balloon into this area. The end result is that the coronary status remains unchanged. We pulled out the wires and the guide catheter and the plan is to treat medically for now. The patient did receive 7000 units of intravenous heparin, a double bolus of Integrilin and 450 mcg of intracoronary nitroglycerin (in divided doses) during this procedure. He tolerated the procedure well. At the end of the procedure, angiography of the right femoral artery was carried out through the sheath and Mynx was used to achieve hemostasis. HEMODYNAMICS: Left ventricular end-diastolic pressure following coronary angiography was 8 mmHg. There is no significant pressure gradient on pullback across the aortic valve. The ascending aortic pressure was 90/56 with a mean of 38 mmHg. LEFT VENTRICULAR ANGIOGRAPHY: Left ventricular angiography was carried out in the right anterior oblique projection. There was a very localized posterobasal hypokinesis to akinesis. Left ventricular ejection fraction was approximately 60%. There does not appear to be significant mitral regurgitation. CORONARY ANGIOGRAPHY: Coronary calcium is present. The left main coronary artery does not exhibit significant disease. Left anterior descending artery has 40% to 50% mid vessel stenosis. The left circumflex artery is stented in its proximal portion and there appears to be 60% in-stent restenosis in the proximal part of the left circumflex artery stent. The right coronary artery is dominant. There is a patent stent in the distal right coronary artery that appears to extend just slightly into the posterolateral continuation of the right coronary artery (across the posterior descending branch of the right coronary artery). There appears to be 80-90% stenosis at the distal bifurcation of RCA into the posterior descending branch and the posterolateral continuation of the right coronary artery. To this, we attempted angioplasty (see details above) that was unsuccessful. CONCLUSIONS: 1. Coronary artery disease with history of multiple coronary interventions: Alpine Xience 2.25 x 28 mm on 04/30/2017 to distal right coronary (Dr. Payne), Alpine Xience 2.25 x 23 on 05/01/17to proximal left circumflex (Dr. Payne) and Alpine Xience 2.25 x 12 to proximal left circumflex on 05/22/2018 (Dr. Flowers ). Cardiac catheterization today shows a 60% in-stent restenosis of left circumflex and 80 to 90% bifurcation stenosis of the distal right coronary to which percutaneous intervention was unsuccessful. The left anterior descending artery has moderate mid vessel disease. 2. Well preserved global left ventricular systolic function with ejection fraction approximately 60%. There appears to be a very localized posterobasal hypokinesis to akinesis. 3. Normal left ventricular end-diastolic pressure. DISCUSSION AND RECOMMENDATIONS: We have advised risk factor modification. Medications are being adjusted for control of symptoms. Oral nitrates are being added. He has been advised to quit smoking immediately and completely. The rest of previous cardiac regimen is being continued. He is being kept in the hospital. Job ID: [id number] DocumentID: [id number] Dictated Date: 07/23/2018 10:04:57 Field Superintendent Date: 07/23/2018 11:51:56 Dictated By: DEANA MULLIGAN MD, MA, FACP, FACC, MTDD
[2018-07-23] MEDS ORDERED: METFORMIN 1000 MG PO SCH (17:00)
[2018-07-23] MEDS: APIXABAN 5 MG (ELIQUIS) TABLET PO SCH (20:28)
[2018-07-23] MEDS: RT-ADVAIR HFA 115/21 MCG PER PUFF IH SCH (20:28)
[2018-07-23] MEDS ORDERED: INSULIN GLARGINE HUM REC ANLOG SQ SCH (21:00)
[2018-07-23] MEDS ORDERED: NON-FORMULARY MEDICATION 1 EA EA (Atorvastatin Calcium (Lipitor) 80 MG) PO SCH (21:00)
[2018-07-23] MEDS ORDERED: lisINopril 20 MG (PRINIVIL) TABLET PO SCH (21:00)
[2018-07-23] MEDS ORDERED: ATORVASTATIN 80 MG (LIPITOR) TABLET PO SCH (21:00)
[2018-07-24] VITALS: BP 100/59
[2018-07-24 03:38] VITALS: BP 97/62
[2018-07-24 04:18] LABS: HEMOGLOBIN 12.8 G/DL (13.3-17.7); MEAN PLATELET VOLUME 10.3 FL (7.4-10.4); RED BLOOD COUNT 4.65 10^6/uL (4.35-5.85); RED CELL DISTRIBUTION WIDTH 14.8 % (10.0-14.5); WHITE BLOOD COUNT 10.2 10^3/uL (4.3-11.0)
[2018-07-24 04:39] LABS: BUN/CREATININE RATIO 16; CALCIUM 8.9 MG/DL (8.5-10.1); CARBON DIOXIDE 19 MMOL/L (21-32); CHLORIDE 106 MMOL/L (98-107); CREATININE SERUM 0.81 MG/DL (0.60-1.30); GFR ESTIMATED > 60; GLUCOSE 169 MG/DL (70-105); POTASSIUM 3.9 MMOL/L (3.6-5.0); SODIUM 136 MMOL/L (135-145)
[2018-07-24] MEDS: NS IV 1000 ML 1,000 ML IV SCH (05:32)
[2018-07-24] MEDS ORDERED: PANTOPRAZOLE 20 MG TABLET (PROTONIX) PO SCH (07:00)
--- NOTE | 2018-07-24 08:04 | Progress Note-Cardiology ---
Cardiology SOAP Progress Note Subjective: Sitting up in a chair at the bedside. No c/o CP, palpitations, syncope, near syncope. Chronic mild exertional dyspnea which is unchanged. C/O mild right groin discomfort. Reports some dizziness with changes in position. Objective: I&O/Vital Signs 07/24/18 07/24/18 07/24/18 07:00 08:00 09:09 Pulse 71 Pulse Ox 96 95 O2 Delivery Room Air Room Air 07/24/18 00:00 Intake Total 1720 ml Output Total 625 ml Balance 1095 ml Weight (Pounds): 218 Weight (Ounces): 0.0 Weight (Calculated Kilograms): 98.472802 Side: right Groin site without hematoma: Yes Condition: DP/PT pulses palpable, extremity w/d/p Bruising: mild bruising Constitutional: AAO x 3, well-developed, well-nourished Respiratory: No accessory muscle use, No respiratory distress; other ( prolonged exp phase with scattered rhonchi) Cardiovascular: irregularly irregular; No JVD; S1 and S2 Gastrointestional: No tender; soft, round, audible bowel sounds Extremities: no lower extremity edema bilateral Neurologic/Psychiatric: grossly intact Skin: No rash, No ulcerations Results/Procedures: Labs Laboratory Tests 07/23/18 20:27: Glucometer 238H 07/24/18 03:50: White Blood Count 10.2, Red Blood Count 4.65, Hemoglobin 12.8L, Hematocrit 37L, Mean Corpuscular Volume 79L, Mean Corpuscular Hemoglobin 28, Mean Corpuscular Hemoglobin Concent 35, Red Cell Distribution Width 14.8H, Platelet Count 303, Mean Platelet Volume 10.3, Sodium Level 136, Potassium Level 3.9, Chloride Level 106, Carbon Dioxide Level 19L, Anion Gap 11, Blood Urea Nitrogen 13, Creatinine 0.81, Estimat Glomerular Filtration Rate > 60, BUN/Creatinine Ratio 16, Glucose Level 169H, Calcium Level 8.9 Microbiology 07/23/18 MRSA Screen - Final, Complete MRSA not isolated Procedures S/P cardiac cath on 07-23-18. Please refer to Dr. José's cardiac cath for details. A/P: Assessment: Stable angina Dizziness with position changes likely d/t orthostatic hypotension d/t medications Coronary artery disease with history of multiple coronary interventions: Alpine Xience 2.25 x 28 mm on 04/30/2017 to distal right coronary (Dr. Payne), Alpine Xience 2.25 x 23 on 05/01/17to proximal left circumflex (Dr. Payne) and Alpine Xience 2.25 x 12 to proximal left circumflex on 05/22/2018 (Dr. Flowers ). Cardiac catheterization if 07-23-18 shows a 60% in-stent restenosis of left circumflex and 80 to 90% bifurcation stenosis of the distal right coronary to which percutaneous intervention was unsuccessful. The left anterior descending artery has moderate mid vessel disease. Well preserved global left ventricular systolic function with ejection fraction approximately 60%. There appears to be a very localized posterobasal hypokinesis to akinesis. Normal left ventricular end-diastolic pressure. Palpitations: A Fl diagnosed on ILR on 05/31/18 OAC with Eliquis for stroke prophylaxis S/p ILR placement on 08/15/16 TSH normal on 08/03/16 Chronic REY, likely related to chronic tobacco use (probable COPD) and obesity ( BMI approx 35) Echo of 05/01/17 (Dr Payne): showed LVEF 55-65, no RWMA, mild MR, grade I diastolic dysfunction of LV DM II, managed by his fam phy Daytime tiredness and obesity are suggestive of sleep apnea syndrome. Further eval is advised, but he refuses Chronic tobacco use Carotid u/s of 08/28/16: mild bilat plaque AA screening scan: no AAA Obesity with BMI approx 33 Plan: OK to discharge home today Discussed CV status with him and answered questions Continue current medication regimen D/t CAD with will add BB, which will also help with rate control We are going to stop the Lisinopril to allow BP room for BB We are going to stop the CCB Rx for long-acting nitrate sent Out pt f/u on Sunday d/t medication changes Physician Assessment Physician Assessment No cp or palp or syncope or groin discomfort Lungs: clear Cor: irreg Ext: no c/c/e R groin: no hematoma A&R * As documented in our note above that I updated (italics) and as noted below * I had a detailed discussion with him that included cath findings, attempted PCI and further treatment plans. I answered questions in detail * We are stopping dilt to provide room for bb that are expected to treat angina and heart rate * We are stopping YASHIRA-inhib to provide room on bp for us to add oral nitrates * YASHIRA-inhib are not mandatory because pt does not have any significant cardiomyopathy GERALD LEYVA PROGRESSIVE CARE NURSE Jul 24, 2018 08:04 DEANA JOSÉ MD FACP [facility] CCDS Jul 24, 2018 17:52
[2018-07-24] MEDS ORDERED: ISOS30TA3 PO (08:40)
[2018-07-24] MEDS ORDERED: LISI10TA2 PO (08:43)
--- NOTE | 2018-07-24 08:45 | Discharge Inst-Cardiology ---
Discharge Inst-Cardiac Discharge Medications New Medications: Metoprolol Succinate (Toprol Xl) 50 Mg Tab.er.24h 50 MG PO DAILY, #30 TAB Isosorbide Mononitrate (Isosorbide Mononitrate ER) 30 Mg Tab.er.24h 30 MG PO DAILY, #30 TAB 5 Refills Continued Medications: Apixaban (Eliquis) 5 Mg Tablet 5 MG PO BID, TAB Atorvastatin Calcium (Lipitor) 80 Mg Tablet 80 MG PO HS, TAB Budesonide/Formoterol Fumarate (Symbicort 160-4.5 Mcg Inhaler) 10.2 Gm Hfa.aer.ad 2 PUFF IH BID, INHALER Clopidogrel Bisulfate (Plavix) 75 Mg Tablet 75 MG PO DAILY, TAB Insulin Glargine,Hum.rec.anlog (Lantus) 100 Unit/1 Ml Vial 20 UNIT SQ EVENING, VIAL Liraglutide (Victoza 3-Paresh) 0.6 Mg/0.1 Ml Pen.injctr 1.8 MG SQ DAILY, VIAL Metformin HCl (Metformin HCl) 1,000 Mg Tablet 1000 MG PO BID, TAB Omeprazole Magnesium (Prilosec Otc) 20 Mg Tablet.dr 20 MG PO DAILY, TAB Discontinued Medications: Diltiazem HCl (Diltiazem 24Hr Cd) 180 Mg Cap.er.24h 180 MG PO DAILY, CAP Lisinopril (Lisinopril) 20 Mg Tablet 20 MG PO HS, TAB New, Converted or Re-Newed RX: Transmitted to Pharmacy Patient Instructions Patient Instructions: HOLD METFORMIN. RESTART ON THURSDAY, JULY 26, 2018 STARTING TOMORROW STOP THE DILTIAZEM AND START TOPROL XL 50MG DAILY STOP LISINOPRIL STARTING TODAY FOLLOW UP APPOINTMENT TO SEE DR. MULLIGAN SUNDAY GERALD LEYVA Jul 24, 2018 08:45
[2018-07-24] MEDS ORDERED: DILTIAZEM HCL 180 MG PO SCH (09:00)
[2018-07-24] MEDS ORDERED: ISOSORBIDE MONONITRATE 30 MG (IMDUR) TAB PO SCH (09:00)
[2018-07-24] MEDS ORDERED: CLOPIDOGREL 75 MG (PLAVIX) TABLET PO SCH (09:00)
[2018-07-24] MEDS: RT-ADVAIR HFA 115/21 MCG PER PUFF IH SCH (09:09)
[2018-07-24] MEDS: APIXABAN 5 MG (ELIQUIS) TABLET PO SCH (09:19)
[2018-07-24] MEDS ORDERED: METO-352 PO (09:42)
--- NOTE | 2018-07-24 10:19 | Short Stay Summary ---
History of Present Illness History of Present Illness Date of Admission Date of Discharge Attending Physician Génesis José MD [facility] Admitting Physician Sissy Kingsley MD Consult Allergies and Home Medications Allergies Coded Allergies: bee pollen (Unverified Allergy, Mild, 05/20/18) Home Medications Apixaban 5 Mg Tablet, 5 MG PO BID, (Reported) Atorvastatin Calcium 80 Mg Tablet, 80 MG PO HS, (Reported) Budesonide/Formoterol Fumarate 10.2 Gm Hfa.aer.ad, 2 PUFF IH BID, (Reported) Clopidogrel Bisulfate 75 Mg Tablet, 75 MG PO DAILY, (Reported) Diltiazem HCl 180 Mg Cap.er.24h, 180 MG PO DAILY, (Reported) Insulin Glargine,Hum.rec.anlog 100 Unit/1 Ml Vial, 20 UNIT SQ EVENING, (Reported ) Isosorbide Mononitrate 30 Mg Tab.er.24h, 30 MG PO DAILY Prescribed by: GERALD LEYVA on 07/24/18 0840 Liraglutide 0.6 Mg/0.1 Ml Pen.injctr, 1.8 MG SQ DAILY, (Reported) Lisinopril 20 Mg Tablet, 20 MG PO HS, (Reported) Metformin HCl 1,000 Mg Tablet, 1,000 MG PO BID, (Reported) Metoprolol Succinate 50 Mg Tab.er.24h, 50 MG PO DAILY Prescribed by: GERALD LEYVA on 07/24/18 0942 Omeprazole Magnesium 20 Mg Tablet.dr, 20 MG PO DAILY, (Reported) Past [id number]-Votara-Wkxhzm Hx Patient Social History Alcohol Beverage of Choice: Beer Smoking Status: Current Everyday Smoker Type Used: Cigarettes Recent Foreign Travel: No Contact w/other who traveled: No Recent Hopitalizations: No Recent Infectious Disease Expo: No Immunizations Up To Date Tetanus Booster (TDap): Unknown Date of Pneumonia Vaccine: May 23, 2017 Seasonal Allergies Seasonal Allergies: No Surgeries Yes (LEFT SHOULDER X 1, RIGHT SHOULDER X2; RIGHT KNEE X2; CARDIOVERSION, 2 STENT ) Cardiac, Coronary Stent, Orthopedic, Tonsillectomy Respiratory Yes Cardiovascular Yes Atrial Fibrillation, Coronary Artery Disease, High Cholesterol, Hypertension Neurological No Reproductive System Hx Reproductive Disorders: No Sexually Transmitted Disease: No HIV/AIDS: No Genitourinary No Gastrointestinal No Musculoskeletal Yes ( FX HAND; SHOULDER AND KNEE SURGERIES) Fractures Endocrine History of Endocrine Disorders: Yes Endocrine Disorders: Diabetes, Non-Insulin dep HEENT History of HEENT Disorders: No Cancer No Psychosocial History of Psychiatric Problem: No Integumentary History of Skin or Integumenta: No Blood Transfusions History of Blood Disorders: No Family Medical History Significant Family History: No Pertinent Family Hx Physical Exam Vital Signs Vital Signs - First Documented 07/23/18 07:09 Temp 97.7 Pulse 100 Resp 16 B/P (MAP) 116/77 (90) Pulse Ox 97 O2 Delivery Room Air Capillary Refill : Less Than 3 Seconds Height, Weight, BMI Height: 5'9.00" Weight: 218lbs. 0.0oz. 98.168909fh; 32.2 BMI Method:Stated Short Stay Diagnosis Conclusion Labs Laboratory Tests 07/23/18 20:27: Glucometer 238H 07/24/18 03:50: White Blood Count 10.2, Red Blood Count 4.65, Hemoglobin 12.8L, Hematocrit 37L, Mean Corpuscular Volume 79L, Mean Corpuscular Hemoglobin 28, Mean Corpuscular Hemoglobin Concent 35, Red Cell Distribution Width 14.8H, Platelet Count 303, Mean Platelet Volume 10.3, Sodium Level 136, Potassium Level 3.9, Chloride Level 106, Carbon Dioxide Level 19L, Anion Gap 11, Blood Urea Nitrogen 13, Creatinine 0.81, Estimat Glomerular Filtration Rate > 60, BUN/Creatinine Ratio 16, Glucose Level 169H, Calcium Level 8.9 CRIS KOO MD Jul 24, 2018 10:19
== END 2018-07-24 11:05 | disposition home or self-care (01) ==
LOC: CATH 06:56 → ICU 09:34 → CATH 07-24 11:05
PROVIDERS: ATTEND Internal Medicine Cardiovascular Disease
DX: I25.10 Atherosclerotic heart disease of native coronary artery without angina pectoris (principal); T82.855A Stenosis of coronary artery stent, initial encounter; I48.91 Unspecified atrial fibrillation; I10 Essential (primary) hypertension; E78.00 Pure hypercholesterolemia, unspecified; E11.9 Type 2 diabetes mellitus without complications; F17.210 Nicotine dependence, cigarettes, uncomplicated; I25.2 Old myocardial infarction; E66.9 Obesity, unspecified; Z68.33 Body mass index [BMI] 33.0-33.9, adult; Z79.01 Long term (current) use of anticoagulants; Z79.02 Long term (current) use of antithrombotics/antiplatelets; Z79.4 Long term (current) use of insulin; Z79.899 Other long term (current) drug therapy; Z95.5 Presence of coronary angioplasty implant and graft
CPT/HCPCS: 36415; 80048; 80053; 80061; 82962; 85027; 85610; 85730; 87081; 93005; 93458; 93926; 94640

== ENCOUNTER 2018-12-16 07:40 | Observation (INO) | payer SELFPAY ==
[2018-12-16] VITALS (13 sets, daily range): BP systolic 99–143; BP diastolic 58–90
[~2018-12-16] VITALS: Ht 373.4 cm; Wt 97.1 kg
[~2018-12-16 07:40] MED LIST changes: +DILT180C84 PO; -GEMF600T4; +GEMF600T8; +INSU100V6 SQ; +ISOS30TA3 PO; +LISI10TA2 PO
[2018-12-16] MEDS ORDERED: NITROGLYCERIN 0.4 MG SL TABS BTL 25'S SL ONE (07:46)
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
[2018-12-16] MEDS ORDERED: ASPIRIN 81 MG CHEW (CHILDREN'S ASA) ONE (07:47)
[2018-12-16] MEDS: NITROGLYCERIN 0.4 MG SL TABS BTL 25'S SL PRN ×3 (07:50→08:04)
[2018-12-16] MEDS ORDERED: ASPIRIN 81 MG CHEW (CHILDREN'S ASA) PO ONE (08:00)
--- NOTE | 2018-12-16 08:04 | ED Chest Pain ---
General Chief Complaint: Chest Pain Stated Complaint: L ARM PAIN;CHEST PAIN;LIGHT HEADED Source: patient, family Exam Limitations: no limitations History of Present Illness Date Seen by Provider: Dec 16, 2018 Time Seen by Provider: 07:44 Initial Comments Patient presents to ER by private conveyance with his with chief complaint that at 7:00 approximately one hour prior to arrival he began to experience substernal midline chest pain radiating to his left jaw and left shoulder. He says is the same pain he had last time when he had had a stent placed by Dr. Flowers late last year. He had a heart attack in 2017. He says Dr. José his primary merchandise deliverer tried to put a stent in a few months after Dr. Flowers but was unable to access the area he needed to with a stent. He took his Plavix, Eliquis, isosorbide mononitrate on the way in. His pain is still 7 out of 10. He had some sweats initially. He quit smoking 3 weeks ago. He is diabetic has high blood pressure, cholesterol and Vapes. Allergies and Home Medications Allergies Coded Allergies: bee pollen (Unverified Allergy, Mild, 05/20/18) Home Medications Apixaban 5 Mg Tablet, 5 MG PO BID, (Reported) Atorvastatin Calcium 80 Mg Tablet, 80 MG PO HS, (Reported) Budesonide/Formoterol Fumarate 10.2 Gm Hfa.aer.ad, 2 PUFF IH BID, (Reported) Clopidogrel Bisulfate 75 Mg Tablet, 75 MG PO DAILY, (Reported) Insulin Glargine,Hum.rec.anlog 100 Unit/1 Ml Vial, 20 UNIT SQ EVENING, (Reported ) Isosorbide Mononitrate 30 Mg Tab.er.24h, 30 MG PO DAILY Prescribed by: GERALD LEYVA on 07/24/18 0840 Liraglutide 0.6 Mg/0.1 Ml Pen.injctr, 1.8 MG SQ DAILY, (Reported) Metformin HCl 1,000 Mg Tablet, 1,000 MG PO BID, (Reported) Metoprolol Succinate 50 Mg Tab.er.24h, 50 MG PO DAILY Prescribed by: GERALD LEYVA on 07/24/18 0942 Omeprazole Magnesium 20 Mg Tablet.dr, 20 MG PO DAILY, (Reported) Patient Home Medication List Home Medication List Reviewed: Yes Review of Systems Review of Systems Constitutional: No chills; diaphoresis; No fever EENTM: No Blurred Vision, No Double Vision Respiratory: Denies Cough; Shortness of Air (mild), SOA With Exertion Cardiovascular: See HPI, Chest Pain; Denies Edema, Denies Lightheadedness, Denies Palpitations, Denies Syncope Gastrointestinal: Denies Abdominal Pain, Denies Constipated, Denies Diarrhea, Denies Nausea Genitourinary: Denies Discharge, Denies Drainage Musculoskeletal: No back pain, No joint pain Psychiatric/Neurological: Denies Anxiety, Denies Depressed Past Mbbswea-Wloyen-Hlndqh Hx Patient Social History Alcohol Use: Occasionally Uses Alcohol Beverage of Choice: Beer Recreational Drug Use: No Smoking Status: Former Smoker Type Used: Cigarettes, Electronic/Vapor Former Smoker, Quit: Nov 25, 2018 Recent Hopitalizations: No Immunizations Up To Date Tetanus Booster (TDap): Unknown Date of Pneumonia Vaccine: May 23, 2017 Seasonal Allergies Seasonal Allergies: No Past Medical History Surgeries: Yes (LEFT SHOULDER X 1, RIGHT SHOULDER X2; RIGHT KNEE X2; CARDIOVERSION, 2 STENT) Cardiac, Coronary Stent, Orthopedic, Tonsillectomy Respiratory: Yes COPD Cardiac: Yes Atrial Fibrillation, Coronary Artery Disease, High Cholesterol, Hypertension Neurological: No Reproductive Disorders: No Sexually Transmitted Disease: No HIV/AIDS: No Genitourinary: No Gastrointestinal: No Musculoskeletal: Yes ( FX HAND; SHOULDER AND KNEE SURGERIES) Fractures Endocrine: Yes Diabetes, Non-Insulin dep HEENT: No Cancer: No Psychosocial: No Integumentary: No Blood Disorders: No Family Medical History No Pertinent Family Hx Physical Exam Vital Signs Vital Signs - First Documented 12/16/18 07:41 Temp 96.6 Pulse 80 Resp 20 B/P (MAP) 165/98 (120) Pulse Ox 97 O2 Delivery Room Air Capillary Refill : Height, Weight, BMI Height: 5'9.00" Weight: 218lbs. 0.0oz. 98.744972bp; 32.2 BMI Method:Stated General Appearance: Anxious, Mild Distress HEENT: PERRL/EOMI, Normal ENT Inspection, Pharynx Normal, Moist Mucous Membranes Neck: Full Range of Motion, Normal Inspection, Non Tender, Supple Respiratory: Chest Non Tender, Lungs Clear, Normal Breath Sounds, No Accessory Muscle Use, No Respiratory Distress Cardiovascular: Regular Rate, Rhythm, No Edema, Normal Peripheral Pulses Gastrointestinal: Normal Bowel Sounds, Non Tender, Soft Neurologic/Psychiatric: Alert, Oriented x3, No Motor/Sensory Deficits Skin: Normal Color, Warm/Dry Progress/Results/Core Measures Results/Orders Lab Results Laboratory Tests Test 12/16/18 07:56 12/16/18 07:58 Range/Units White Blood Count 6.9 4.3-11.0 10^3/uL Red Blood Count 5.24 4.35-5.85 10^6/uL Hemoglobin 14.6 13.3-17.7 G/DL Hematocrit 41 40-54 % Mean Corpuscular Volume 77 L 80-99 FL Mean Corpuscular Hemoglobin 28 25-34 PG Mean Corpuscular Hemoglobin Concent 36 32-36 G/DL Red Cell Distribution Width 14.6 H 10.0-14.5 % Platelet Count 276 130-400 10^3/uL Mean Platelet Volume 10.5 H 7.4-10.4 FL Neutrophils (%) (Auto) 59 42-75 % Lymphocytes (%) (Auto) 26 12-44 % Monocytes (%) (Auto) 12 0-12 % Eosinophils (%) (Auto) 3 0-10 % Basophils (%) (Auto) 1 0-10 % Neutrophils # (Auto) 4.1 1.8-7.8 X 10^3 Lymphocytes # (Auto) 1.8 1.0-4.0 X 10^3 Monocytes # (Auto) 0.8 0.0-1.0 X 10^3 Eosinophils # (Auto) 0.2 0.0-0.3 10^3/uL Basophils # (Auto) 0.0 0.0-0.1 10^3/uL Sodium Level 131 L 135-145 MMOL/L Potassium Level 4.5 3.6-5.0 MMOL/L Chloride Level 96 L 98-107 MMOL/L Carbon Dioxide Level 15 L 21-32 MMOL/L Anion Gap 20 H 5-14 MMOL/L Blood Urea Nitrogen 14 7-18 MG/DL Creatinine 1.06 0.60-1.30 MG/DL Estimat Glomerular Filtration Rate > 60 BUN/Creatinine Ratio 13 Glucose Level 550 *H 70-105 MG/DL Calcium Level 9.1 8.5-10.1 MG/DL Corrected Calcium 9.0 8.5-10.1 MG/DL Magnesium Level 2.6 H 1.8-2.4 MG/DL Total Bilirubin 0.3 0.1-1.0 MG/DL Aspartate Amino Transf (AST/SGOT) 19 5-34 U/L Alanine Aminotransferase (ALT/SGPT) 17 0-55 U/L Alkaline Phosphatase 93 40-136 U/L Myoglobin 21.3 10.0-92.0 NG/ML Troponin I < 0.028 <0.028 NG/ML Total Protein 8.1 6.4-8.2 GM/DL Albumin 4.1 3.2-4.5 GM/DL Glucometer 508 *H 70-110 MG/DL My Orders Orders - JEN WHITE Nitroglycerin 0.4 Mg Btl 25's (Nitrostat (12/16/18 07:46) Aspirin Chewable Tablet (Baby Aspirin Ch (12/16/18 07:47) Cbc With Automated Diff (12/16/18 07:50) Magnesium (12/16/18 07:50) Chest 1 View, Ap/Pa Only (12/16/18 07:50) Ekg Tracing (12/16/18 07:50) Cardiac Profile 1 (12/16/18 07:50) Comprehensive Metabolic Panel (12/16/18 07:50) Myoglobin Serum (12/16/18 07:50) Protime With Inr (12/16/18 07:50) Partial Thromboplastin Time (12/16/18 07:50) O2 (12/16/18 07:50) Monitor-Rhythm Ecg Trace Only (12/16/18 07:50) Lipid Panel (12/17/18 06:00) Aspirin Chewable Tablet (Baby Aspirin Ch (12/16/18 08:00) Nitroglycerin 0.4 Mg Btl 25's (Nitrostat (12/16/18 08:00) Saline Lock/Iv-Start (12/16/18 07:50) Insulin (Regular) Human (Humulin R (Per (12/16/18 08:15) Ua Culture If Indicated (12/16/18 08:06) Drug Screen Stat (Urine) (12/16/18 08:06) Saline Lock/Iv-Start (12/16/18 08:06) Ns Iv 1000 Ml (Sodium Chloride 0.9%) (12/16/18 08:06) Medications Given in ED Current Medications Medications Dose Ordered Sig/Juan Miguel Route Start Time Stop Time Status Last Admin Dose Admin Aspirin 324 mg ONCE ONCE PO 12/16/18 08:00 12/16/18 08:01 DC 12/16/18 07:50 324 MG Insulin Human Regular 15 unit ONCE ONCE SC 12/16/18 08:15 12/16/18 08:17 DC 12/16/18 08:39 15 UNIT Nitroglycerin 0.4 mg UD PRN SL 12/16/18 08:00 12/16/18 08:06 DC 12/16/18 08:04 0.4 MG Vital Signs/I&O 12/16/18 07:41 Temp 96.6 Pulse 80 Resp 20 B/P (MAP) 165/98 (120) Pulse Ox 97 O2 Delivery Room Air Progress Progress Note : Time: 07:57 Progress Note Patient has a strong history of coronary artery disease presenting with pain that he says is his usual anginal pain. He is not taking any nitroglycerin or any give him 324 mg of aspirin and a nitroglycerin tablet. Blood sugars above 500 so we are going to give 15 units of regular insulin and reassess. He has not checked his blood sugar this morning yet. ED ACS 20. Not low risk. This patient is not a candidate for early discharge and should receive a standard chest pain evaluation with delayed troponin testing. Cardiac catheterization by Dr. José July 2018: 1. Coronary artery disease with history of multiple coronary interventions: Alpine Xience 2.25 x 28 mm on 04/30/2017 to distal right coronary (Dr. Payne), Alpine Xience 2.25 x 23 on 05/01/17to proximal left circumflex (Dr. Payne) and Alpine Xience 2.25 x 12 to proximal left circumflex on 05/22/2018 (Dr. Flowers ). Cardiac catheterization today shows a 60% in-stent restenosis of left circumflex and 80 to 90% bifurcation stenosis of the distal right coronary to which percutaneous intervention was unsuccessful. The left anterior descending artery has moderate mid vessel disease. 2. Well preserved global left ventricular systolic function with ejection fraction approximately 60%. There appears to be a very localized posterobasal hypokinesis to akinesis. 3. Normal left ventricular end-diastolic pressure. Initial ECG Impression Date: Dec 16, 2018 Initial ECG Impression Time: 07:44 Initial ECG Rate: 82 Initial ECG Rhythm: Normal Sinus Initial ECG Intervals: Normal Initial ECG Impression: Normal Initial ECG Comparisson: Unchanged Comment No ST elevation or depression. Mild respiratory artifact noted. Diagnostic Imaging Diagonstic Imaging: Xray Plain Films/CT/US/NM/MRI: chest (1v) Comments No acute cardiopulmonary process noted on one view chest x-ray. Implanted lync device noted. [facility] [place] [place] NAME: SAMINA RIOS [facility] REC#: [id number] PT STATUS: REG ER : 1965 PHYSICIAN: JEN WHITE MD ADMIT DATE: 12/16/18/ER Draft Date of Exam:12/16/18 CHEST 1 VIEW, AP/PA ONLY Indication: Chest pain and left arm pain. Time of exam 8:02 AM Comparison is made with prior exam from 05/20/2018. The heart size is stable. A monitoring device overlies the left chest. The lungs appear to be clear. No infiltrate is seen. No effusion or pneumothorax is detected. Impression: No acute cardiopulmonary process is detected. Dictated on workstation # [id number] Dict: 12/16/18 0812 Trans: 12/16/18 0820 [facility] [id number] Interpreted by: CHON AVILA MD Electronically signed by: Reviewed: Reviewed by Me Consults : Consulting Physician: DEANA JOSÉ MD FACP FAC CCDS Departure Communication (Admissions) Time/Spoke to Admitting Phy: 08:45 Discussed the case with Dr. Abdul and she agrees to admit the patient. She wants an A1c. We discussed insulin orders. Time/Spoke to Consulting Phy: 08:40 Discussed case lab EKG imaging findings and history with Dr. José and he agrees with admitting to medicine team and he will consult. He recommends another 100 mg Toprol-XL. Impression Primary Impression: Chest pain Qualified Codes: R07.9 - Chest pain, unspecified Additional Impressions: Acute coronary syndrome Hyperglycemia Disposition: ADMITTED INPATIENT Condition: Stable Admissions Decision to Admit Reason: Admit from ER (General) Decision to Admit/Date: Dec 16, 2018 Time/Decision to Admit Time: 08:44 Departure-Patient Inst. Referrals: DUNIA SANTOS MD (PCP/Family) Primary Care Physician JEN WHITE Dec 16, 2018 08:03
[2018-12-16 08:06] LABS: BASOPHILS % (AUTO) 1 % (0-10); EOSINOPHILS # (AUTO) 0.2 10^3/uL (0.0-0.3); EOSINOPHILS % (AUTO) 3 % (0-10); HEMATOCRIT 41 % (40-54); HEMOGLOBIN 14.6 G/DL (13.3-17.7); LYMPHOCYTES # (AUTO) 1.8 X 10^3 (1.0-4.0); LYMPHOCYTES % (AUTO) 26 % (12-44); MEAN CORPUSCULAR HEMOGLOBIN 28 PG (25-34); MEAN CORPUSCULAR HGB CONC 36 G/DL (32-36); MEAN CORPUSCULAR VOLUME 77 FL (80-99); MEAN PLATELET VOLUME 10.5 FL (7.4-10.4); MONOCYTES # (AUTO) 0.8 X 10^3 (0.0-1.0); MONOCYTES % (AUTO) 12 % (0-12); NEUTROPHILS # (AUTO) 4.1 X 10^3 (1.8-7.8); NEUTROPHILS % (AUTO) 59 % (42-75); PLATELET COUNT 276 10^3/uL (130-400); RED CELL DISTRIBUTION WIDTH 14.6 % (10.0-14.5); WHITE BLOOD COUNT 6.9 10^3/uL (4.3-11.0)
[2018-12-16] MEDS ORDERED: inSUlin (REGULAR) HUMAN 1 UNIT/0.01 ML (CHARGE PER UNIT) SC ONE (08:15)
--- NOTE | 2018-12-16 08:21 | Diagnostic Imaging Report ---
Indication: Chest pain and left arm pain. Time of exam 8:02 AM Comparison is made with prior exam from 05/20/2018. The heart size is stable. A monitoring device overlies the left chest. The lungs appear to be clear. No infiltrate is seen. No effusion or pneumothorax is detected. Impression: No acute cardiopulmonary process is detected. Dictated by: Dictated on workstation # [id number]
[2018-12-16 08:27] LABS: ALANINE AMINOTRANSFERASE 17 U/L (0-55); ALBUMIN 4.1 GM/DL (3.2-4.5); ALKALINE PHOSPHATASE 93 U/L (40-136); BILIRUBIN,TOTAL 0.3 MG/DL (0.1-1.0); BUN/CREATININE RATIO 13; CALCIUM 9.1 MG/DL (8.5-10.1); CARBON DIOXIDE 15 MMOL/L (21-32); CHLORIDE 96 MMOL/L (98-107); CREATININE SERUM 1.06 MG/DL (0.60-1.30); GFR ESTIMATED > 60; MAGNESIUM 2.6 MG/DL (1.8-2.4); POTASSIUM 4.5 MMOL/L (3.6-5.0); SODIUM 131 MMOL/L (135-145); TOTAL PROTEIN 8.1 GM/DL (6.4-8.2)
[2018-12-16 08:33] LABS: MYOGLOBIN SERUM 21.3 NG/ML (10.0-92.0)
[2018-12-16 08:37] LABS: GLUCOSE 550 MG/DL (70-105)
[2018-12-16] MEDS: NS IV 1000 ML 1,000 ML IV SCH ×2 (08:39→08:43)
[2018-12-16 08:51] LABS: BILIRUBIN,URINE NEGATIVE (NEGATIVE); CLARITY,URINE CLEAR; COLOR,URINE YELLOW; GLUCOSE, URINE (UA) 4+ (NEGATIVE); KETONES,URINE NEGATIVE (NEGATIVE); LEUKOCYTE ESTERASE ,URINE NEGATIVE (NEGATIVE); NITRITE,URINE NEGATIVE (NEGATIVE); PH,URINE 5 (5-9); PROTEIN,URINE NEGATIVE (NEGATIVE); UROBILINOGEN,URINE NORMAL (NORMAL)
[2018-12-16] MEDS ORDERED: meTOprolol SUCCINATE 100 MG (TOPROL XL) TAB PO ONE (09:00)
[2018-12-16 09:05] LABS: AMPHETAMINE SCREEN, URINE NEGATIVE (NEGATIVE); BARBITURATE SCREEN URINE NEGATIVE (NEGATIVE); BENZODIAZEPINES SCREEN URINE NEGATIVE (NEGATIVE); CANNABINOID SCREEN, URINE NEGATIVE (NEGATIVE); COCAINE SCREEN URINE NEGATIVE (NEGATIVE); METHADONE STAT NEGATIVE (NEGATIVE); METHAMPHETAMINE SCREEN URINE S NEGATIVE (NEGATIVE); OPIATE SCREEN URINE NEGATIVE (NEGATIVE); OXYCODONE STAT NEGATIVE (NEGATIVE); PROPOXYPHENE STAT NEGATIVE (NEGATIVE); TRICYCLIC ANTIDEPRESSANTS SCRE NEGATIVE (NEGATIVE)
[2018-12-16 09:08] LABS: BACTERIA,URINE NEGATIVE /HPF
[2018-12-16 09:14] LABS: PROTHROMBIN TIME PATIENT 13.5 SEC (12.2-14.7)
--- NOTE | 2018-12-16 11:27 | Consultation-Cardiology ---
HPI-Cardiology Cardiology Consultation: Date of Consultation 12/16/18 Time Seen by a Provider: 12:00 Date of Admission 12-16-18 Attending Physician Kira Abdul DO Admitting Physician Sissy Kingsley MD Consulting Physician Génesis José MD HPI: Chief Complaint: Chest pain Mr. Rios is a 53 year old male admitted to 433 from the ED with c/o CP. He has chronic chest pain. He reports around 7:00 this morning while he was trying to go back to sleep he had a sudden onset of sharp, stabbing, mid- sternal CP which persisted for several minutes. He called his daughter and they decided to call EMS. He reports having diaphoresis with the chest pain. He rates it as a 7 out of 10 on the pain scale. He states he had already taken him morning medications including his long-acting nitrate. He has chronic mild dyspnea which is unchanged. No c/o syncope or near syncope. He reports a feeling of a hard heartbeat this morning. He states he received nitro sublingual x 3 doses in the ED which did improve his CP to a 2 out of 10. Review of Systems-Cardiology Review of Systems Constitutional: No chills, No fever, No malaise Eyes: No vision change Ears/Nose/Throat: No epistaxis, No recent hearing loss Respiratory: As described under HPI Cardiovascular: As described under HPI Gastrointestinal: No constipation, No diarrhea, No nausea, No vomiting Genitourinary: No dysuria, No hematuria Musculoskeletal: no symptoms reported Skin: No rash, No ulcerations Psychiatric/Neurological: No seizure, No focal weakness Hematologic: No bleeding abnormalities TCS-Zayibz-Hfylim Hx Patient Social History Alcohol Use: Occasionally Uses Recreational Drug Use: No Smoking Status: Former Smoker Type Used: Cigarettes, Electronic/Vapor Recent Foreign Travel: No Recent Infectious Disease Expo: No Hospitalization with Isolation: Denies Immunizations Up To Date Tetanus Booster (TDap): Unknown Date of Pneumonia Vaccine: May 23, 2017 Past Medical History PMH As described under Assessment. Allergies and Home Medications Allergies Coded Allergies: bee pollen (Unverified Allergy, Mild, 05/20/18) Home Medications Apixaban 5 Mg Tablet, 5 MG PO BID, (Reported) Aspirin 81 Mg Tab.chew, 81 MG PO DAILY Prescribed by: GERALD LEYVA on 12/18/18 0935 Atorvastatin Calcium 80 Mg Tablet, 80 MG PO HS, (Reported) Budesonide/Formoterol Fumarate 10.2 Gm Hfa.aer.ad, 2 PUFF IH BID, (Reported) Clopidogrel Bisulfate 75 Mg Tablet, 75 MG PO DAILY, (Reported) Insulin Glargine,Hum.rec.anlog 100 Unit/1 Ml Vial, 20 UNIT SQ HS, (Reported) Isosorbide Mononitrate 120 Mg Tab.er.24h, 120 MG PO DAILY, (Reported) Liraglutide 0.6 Mg/0.1 Ml Pen.injctr, 1.8 MG SQ DAILY, (Reported) Lisinopril 2.5 Mg Tablet, 2.5 MG PO DAILY, (Reported) Metformin HCl 1,000 Mg Tablet, 1,000 MG PO BID, (Reported) Metoprolol Succinate 50 Mg Tab.er.24h, 50 MG PO DAILY, (Reported) Omeprazole Magnesium 20 Mg Tablet.dr, 20 MG PO DAILY, (Reported) Physical Exam-Cardiology Physical Exam Vital Signs/I&O Capillary Refill : Less Than 3 Seconds Constitutional: AAO x 3, well-developed, well-nourished HEENT: PERRL, hearing is well preserved, oral hygience is good Neck: No carotid bruit; carotid pulses are 2 + bilaterally Respiratory: No accessory muscle use, No respiratory distress; chest expansion is symmetric, chest is bilaterally symmetric, lungs clear to auscultation, other (prolonged expiratory phase) Cardiovascular: regular rate-rhythm; No JVD; S1 and S2 Gastrointestinal: No tender; soft, round, audible bowel sounds Rectal: deferred Extremities: no lower extremity edema bilateral Neurologic/Psychiatric: grossly intact, power is 5/5 both on sides Skin: No rash, No ulcerations Data Review Labs Radiology NAME: SAMINA RIOS MED REC#: [id number] PT STATUS: REG ER : 1965 PHYSICIAN: JEN WHITE MD ADMIT DATE: 12/16/18/ER Draft Date of Exam:12/16/18 CHEST 1 VIEW, AP/PA ONLY Indication: Chest pain and left arm pain. Time of exam 8:02 AM Comparison is made with prior exam from 05/20/2018. The heart size is stable. A monitoring device overlies the left chest. The lungs appear to be clear. No infiltrate is seen. No effusion or pneumothorax is detected. Impression: No acute cardiopulmonary process is detected. Dictated on workstation # [id number] Dict: 12/16/18 08 Trans: 12/16/18 08 [facility] [id number] Interpreted by: CHON AVILA MD Electronically signed by: ECG Impression ECG Initial ECG Rhythm: Normal Sinus A/P-Cardiology Assessment/Admission Diagnosis H/O stable angina Coronary artery disease with history of multiple coronary interventions: Alpine Xience 2.25 x 28 mm on 04/30/2017 to distal right coronary (Dr. Payne), Alpine Xience 2.25 x 23 on 05/01/17to proximal left circumflex (Dr. Payne) and Alpine Xience 2.25 x 12 to proximal left circumflex on 05/22/2018 (Dr. Flowers ). Cardiac catheterization if 07-23-18 shows a 60% in-stent restenosis of left circumflex and 80 to 90% bifurcation stenosis of the distal right coronary to which percutaneous intervention was unsuccessful. The left anterior descending artery has moderate mid vessel disease. Well preserved global left ventricular systolic function with ejection fraction approximately 60%. There appears to be a very localized posterobasal hypokinesis to akinesis. Normal left ventricular end-diastolic pressure. Palpitations: A Fl diagnosed on ILR on 05/31/18 OAC with Eliquis for stroke prophylaxis S/p ILR placement on 08/15/16 TSH normal on 08/03/16 Chronic REY, likely related to chronic tobacco use (probable COPD) and obesity ( BMI approx 35) Echo of 05/01/17 (Dr Payne): showed LVEF 55-65, no RWMA, mild MR, grade I diastolic dysfunction of LV DM II, managed by his fam phy Daytime tiredness and obesity are suggestive of sleep apnea syndrome. Further eval is advised, but he refuses Chronic tobacco use Carotid u/s of 08/28/16: mild bilat plaque AA screening scan: no AAA Obesity with BMI approx 33 Clinical Quality Measures AMI/AHF: ASA po Prior to arrival: No GERALD LEYVA Dec 16, 2018 11:27
--- NOTE | 2018-12-16 11:56 | NUR ---
PATIENT BROUGHT TO ROOM VIA WHEELCHAIR ACCOMPANIED BY STAFF. ORIENTED TO ROOM AND CALL LIGHT. NO COMPLAINTS OF CHEST PAIN CURRENTLY. DOES COMPLAIN OF HEADACHE. VITAL SIGNS STABLE ON ROOM AIR. NO FURTHER NEEDS AT THIS TIME.
[2018-12-16] MEDS ORDERED: NITROGLYCERIN 0.4 MG SL TABS BTL 25'S SL PRN (12:00)
[2018-12-16] MEDS ORDERED: ONDANSETRON 4 MG/2 ML (SDV) Z0FRAN IVP PRN (12:00)
[2018-12-16] MEDS: ACETAMINOPHEN 500 MG TAB (TYLENOL) PO PRN (12:18)
--- NOTE | 2018-12-16 12:34 | History & Physical-Hospitalist ---
History of Present Illness HPI/Chief Complaint CC: Chest pain HPI: This is a 53-year-old white male with known heart disease previous stents by Dr. Flowers and Dr. José who presented to the [facility] ER with chest pain. The chest pain went on for about 4 minutes and was so severe he called an ambulance. At this current time reports a headache from the nitroglycerin he was given in the ER. Dr. José will see him in consultation and has allowed him to order lunch. Source: patient Exam Limitations: no limitations Date Seen 12/16/18 Time Seen by a Provider: 12:30 Attending Physician Kira Bloom Bethany N MD Referring Physician DEANA JOSÉ MD FACP FACC CCDS Date of Admission Dec 16, 2018 at 10:09 Home Medications & Allergies Home Medications Reviewed patient Home Medication Reconciliation performed by pharmacy medication reconciliations facility technician and/or nursing. Patients Allergies have been reviewed. Allergies Allergies Coded Allergies bee pollen (Unverified Allergy, Mild, 05/20/18) Past Xmhqtif-Uysihn-Paeapf Hx Past Med/Social Hx: Reviewed Nursing Past Med/Soc Hx, Reviewed and Corrections made Patient Social History Employed/Student: unemployed Alcohol Use: Occasionally Uses Number of Drinks Today: AA Alcohol Beverage of Choice: Beer Recreational Drug Use: No Smoking Status: Former Smoker Former Smoker, Quit: Nov 25, 2018 Type Used: Cigarettes, Electronic/Vapor Recent Foreign Travel: No Contact w/other who traveled: No Recent Hopitalizations: No Recent Infectious Disease Expo: No Immunizations Up To Date Tetanus Booster (TDap): Unknown Date of Pneumonia Vaccine: Jul 18, 2018 Seasonal Allergies Seasonal Allergies: No Past Medical History Surgeries: Cardiac, Coronary Stent, Orthopedic, Tonsillectomy Cardiac: Atrial Fibrillation, Coronary Artery Disease, High Cholesterol, Hypertension Reproductive: No Sexually Transmitted Disease: No HIV/AIDS: No Musculoskeletal: Fractures Endocrine: Diabetes, Non-Insulin dep History of Blood Disorders: No Family History No Pertinent Family Hx Review of Systems Constitutional: see HPI EENTM: no symptoms reported Respiratory: dyspnea on exertion Cardiovascular: chest pain Gastrointestinal: no symptoms reported Genitourinary: no symptoms reported Musculoskeletal: no symptoms reported Skin: no symptoms reported Psychiatric/Neurological: No Symptoms Reported All Other Systems Reviewed Negative Unless Noted: Yes Physical Exam Physical Exam Vital Signs Vital Signs - First Documented 12/16/18 07:41 Temp 96.6 Pulse 80 Resp 20 B/P (MAP) 165/98 (120) Pulse Ox 97 O2 Delivery Room Air Capillary Refill : Less Than 3 Seconds Height, Weight, BMI Height: 12'3.00" Weight: 214lbs. 0.0oz. 97.891380oo; 7.0 BMI Method:Stated General Appearance: No Apparent Distress, WD/WN, Chronically ill Eyes: Right Eye Normal Inspection, Right Eye PERRL HEENT: PERRL/EOMI, Normal ENT Inspection, Pharynx Normal, Moist Mucous Membranes Neck: Full Range of Motion, Normal Inspection, Non Tender Respiratory: Chest Non Tender, Lungs Clear, Normal Breath Sounds, No Accessory Muscle Use, No Respiratory Distress Cardiovascular: Regular Rate, Rhythm, No Edema, No Gallop, No JVD, No Murmur, Normal Peripheral Pulses Gastrointestinal: Normal Bowel Sounds, No Organomegaly, No Pulsatile Mass, Non Tender, Soft Back: Normal Inspection, No CVA Tenderness, No Vertebral Tenderness Extremity: Normal Capillary Refill, Normal Inspection, Normal Range of Motion, Non Tender, No Calf Tenderness, No Pedal Edema Neurologic/Psychiatric: Alert, Oriented x3, No Motor/Sensory Deficits, Normal Mood/Affect Skin: Normal Color, Warm/Dry Lymphatic: No Adenopathy Results Results/Procedures Labs Laboratory Tests 12/16/18 07:56 Patient resulted labs reviewed. Assessment/Plan Admission Diagnosis Chest pain Diabetes mellitus out of control CAD Chronic atrial fibrillation Chronic anticoagulation for stroke prophylaxis from atrial fibrillation Chronic angina COPD Former smoker Plan: Intense insulin regimen Cardiology consultation Monitor closely Admission Status: Observation Diagnosis/Problems Diagnosis/Problems (1) Chest pain Status: Acute Qualifiers: Chest pain type: unspecified Qualified Codes: R07.9 - Chest pain, unspecified (2) Coronary artery disease Status: Chronic Qualifiers: Coronary Disease-Associated Artery/Lesion type: [place] artery [place] vs. transplanted heart: [place] heart Associated angina: with stable angina Qualified Codes: I25.118 - Atherosclerotic heart disease of [place] coronary artery with other forms of angina pectoris (3) GERD (gastroesophageal reflux disease) Status: Chronic Qualifiers: Esophagitis presence: without esophagitis Qualified Codes: K21.9 - Gastro- esophageal reflux disease without esophagitis (4) Hypertension Status: Chronic Qualifiers: Hypertension type: essential hypertension Qualified Codes: I10 - Essential (primary) hypertension (5) Hyperlipidemia Status: Chronic Qualifiers: Hyperlipidemia type: mixed hyperlipidemia Qualified Codes: E78.2 - Mixed hyperlipidemia (6) COPD (chronic obstructive pulmonary disease) Status: Chronic Qualifiers: COPD type: unspecified COPD Qualified Codes: J44.9 - Chronic obstructive pulmonary disease, unspecified (7) Diabetes mellitus, type 2 Status: Chronic Qualifiers: Diabetes mellitus assisted insulin use: with drywall taper use Diabetes mellitus complication status: with circulatory complication Diabetes mellitus complication detail: with other circulatory complications Qualified Codes: E11.59 - Type 2 diabetes mellitus with other circulatory complications; 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
[2018-12-16] MEDS ORDERED: inSUlin DETERMIR 1 UNIT/0.01 ML (LEVEMIR) CHARGE PER UNIT SQ NR (12:45)
[2018-12-16] MEDS ORDERED: FLU QUADRIvalent (5+ YOA) 2018-2019 (AFLURIA) 0.5 ML IM ONE (12:45)
[2018-12-16] MEDS ORDERED: inSUlin (REGULAR) HUMAN 1 UNIT/0.01 ML (CHARGE PER UNIT) SC NR (12:45)
[2018-12-16] MEDS: morphine INJ 4 MG/ML 1 ML (VIAL/SYRINGE) IVP PRN ×2 (13:38→16:36)
[2018-12-16] MEDS ORDERED: ISOS120T9 PO (14:11)
[2018-12-16] MEDS ORDERED: METO-370 PO (14:11)
[2018-12-16] MEDS ORDERED: LISI2.5T PO (14:11)
--- NOTE | 2018-12-16 14:13 | NUR ---
SPOKE WITH THE PATIENT ABOUT HIS MEDICATIONS. HE HAD HIS ELIQUIS, IMDUR, PLAVIX, AND METOPROLOL WITH HIM. HE WAS ABLE TO LIST THE OTHER MEDICATIONS HE TAKES WELL. HE RECEIVES THEM THROUGH PALS, PATIENT ASSISTANCE, AND THE REPOSITORY AT [facility]. [facility] HAS NOT FILLED ANYTHING FOR HIM RECENTLY, THE LAST THING ON FILE WAS IN SEPTEMBER AND THOSE WERE PUT ON HOLD. I UPDATED THE MED REC WITH THE MEDS THE PATIENT REPORTS TAKING HOWEVER WAS UNABLE TO VERIFY LAST FILL DATES AT THIS TIME. MEDS BOTTLES HE HAS WITH HIM: 09-17-18 IMDUR ER 120MG DAILY #90 11-18-18 PLAVIX 75MG DAILY #90 11-18-18 METOPROLOL ER 50MG DAILY #90 (REPOSITORY MEDS) ELIQUIS 5MG BID (THEY COME MAILED TO HIM FROM [facility]) ADDITIONALLY HE TAKES: VICTOZA DAILY 1.8MG DAILY LANTUS 20 HS SYMBICORT 2 PUFFS BID LISINOPRIL 2.5MG DAILY METFORMIN 1000MG BID LIPITOR 80 HS OMEPRAZOLE 20MG DAILY
[2018-12-16] MEDS ORDERED: inSUlin ASPART (NovoLOG) 1 UNIT/0.01 ML (CHARGE PER UNIT) SC SCH (16:00)
[2018-12-16] MEDS: inSUlin ASPART (NovoLOG) 1 UNIT/0.01 ML (CHARGE PER UNIT) SC SCH ×2 (16:35→20:43)
[2018-12-16] MEDS: inSUlin (REGULAR) HUMAN 1 UNIT/0.01 ML (CHARGE PER UNIT) SC SCH ×2 (16:35→20:43)
[2018-12-16] MEDS ORDERED: AMOXICILLIN 500 MG (POLYMOX) CAP PO STA (18:57)
--- NOTE | 2018-12-16 19:10 | Consultation-Cardiology ---
HPI-Cardiology Cardiology Consultation: Date of Consultation 12/16/18 Time Seen by a Provider: 15:50 Date of Admission Attending Physician Kira Abdul DO Admitting Physician Sissy Kingsley MD Consulting Physician DEANA MULLIGAN MD, MA, FACP, FACC, FSCAI, CCDS HPI: Chief Complaint: Chest pain Mr. Carrizales is a 53 year old male admitted to 433 from the ED with c/o CP. He has chronic chest pain. He reports around 7:00 this morning while he was trying to go back to sleep he had a sudden onset of sharp, stabbing, mid- sternal CP which persisted for several minutes. He called his daughter and they decided to call EMS. He reports having diaphoresis with the chest pain. He rates it as a 7 out of 10 on the pain scale. He states he had already taken him morning medications including his long-acting nitrate. He has chronic mild dyspnea which is unchanged. No c/o syncope or near syncope. He reports a feeling of a hard heartbeat this morning. He states he received nitro sublingual x 3 doses in the ED which did improve his CP to a 2 out of 10. Notes pain in a tooth in the L upper jaw that his dentist has diagnoses as dental abscess and has treated with antibiotics and for which he is awaiting definitive therapy. Since being off antibiotics for the last few days, dental pain has recurred Review of Systems-Cardiology Review of Systems Constitutional: No chills, No fever, No malaise Eyes: No vision change Ears/Nose/Throat: No epistaxis, No recent hearing loss Respiratory: As described under HPI Cardiovascular: As described under HPI Gastrointestinal: No constipation, No diarrhea, No nausea, No vomiting Genitourinary: No dysuria, No hematuria Musculoskeletal: no symptoms reported Skin: No rash, No ulcerations Psychiatric/Neurological: No seizure, No focal weakness Hematologic: No bleeding abnormalities All Other Systems Reviewed Negative Unless Noted: Yes NFG-Uqhshh-Xpethq Hx Patient Social History Employed/Student: unemployed Alcohol Use: Occasionally Uses Recreational Drug Use: No Smoking Status: Former Smoker Type Used: Cigarettes, Electronic/Vapor Recent Foreign Travel: No Recent Infectious Disease Expo: No Hospitalization with Isolation: Denies Immunizations Up To Date Tetanus Booster (TDap): Unknown Date of Pneumonia Vaccine: Jul 18, 2018 Past Medical History PMH As described under Assessment. Allergies and Home Medications Allergies Coded Allergies: bee pollen (Unverified Allergy, Mild, 05/20/18) Home Medications Apixaban 5 Mg Tablet, 5 MG PO BID, (Reported) Atorvastatin Calcium 80 Mg Tablet, 80 MG PO HS, (Reported) Budesonide/Formoterol Fumarate 10.2 Gm Hfa.aer.ad, 2 PUFF IH BID, (Reported) Clopidogrel Bisulfate 75 Mg Tablet, 75 MG PO DAILY, (Reported) Insulin Glargine,Hum.rec.anlog 100 Unit/1 Ml Vial, 20 UNIT SQ HS, (Reported) Isosorbide Mononitrate 120 Mg Tab.er.24h, 120 MG PO DAILY, (Reported) Liraglutide 0.6 Mg/0.1 Ml Pen.injctr, 1.8 MG SQ DAILY, (Reported) Lisinopril 2.5 Mg Tablet, 2.5 MG PO DAILY, (Reported) Metformin HCl 1,000 Mg Tablet, 1,000 MG PO BID, (Reported) Metoprolol Succinate 50 Mg Tab.er.24h, 50 MG PO DAILY, (Reported) Omeprazole Magnesium 20 Mg Tablet.dr, 20 MG PO DAILY, (Reported) Patient Home Medication List Home Medication List Reviewed: Yes Physical Exam-Cardiology Physical Exam Vital Signs/I&O 12/16/18 12/16/18 12/16/18 12/16/18 07:41 11:26 11:30 11:30 Temp 96.6 97.0 97.0 Pulse 80 76 71 73 Resp 20 20 16 16 B/P (MAP) 165/98 (120) 131/85 (100) 137/65 (89) 137/65 Pulse Ox 97 96 97 97 O2 Delivery Room Air Room Air Room Air Room Air 12/16/18 12/16/18 12/16/18 12/16/18 11:57 12:00 12:08 12:12 Temp 97.0 Pulse 71 73 69 Resp 16 B/P (MAP) 120/80 (93) 137/65 139/83 (101) Pulse Ox 97 99 O2 Delivery Room Air Room Air 12/16/18 12/16/18 12/16/18 12/16/18 12:27 12:42 13:13 13:42 Pulse 84 83 78 77 B/P (MAP) 137/85 (102) 142/78 (99) 125/82 (96) 143/90 (107) Pulse Ox 97 94 97 97 12/16/18 12/16/18 12/16/18 12/16/18 14:00 14:30 14:45 15:30 Temp 97.6 Pulse 76 70 75 74 Resp 18 B/P (MAP) 123/80 (94) 99/58 (72) 110/70 (83) Pulse Ox 98 94 97 O2 Delivery Room Air Capillary Refill : Less Than 3 Seconds Constitutional: AAO x 3, well-developed, well-nourished HEENT: PERRL, hearing is well preserved, oral hygience is good Neck: No carotid bruit; carotid pulses are 2 + bilaterally Respiratory: No accessory muscle use, No respiratory distress; chest expansion is symmetric, chest is bilaterally symmetric, lungs clear to auscultation, other (prolonged expiratory phase) Cardiovascular: regular rate-rhythm; No JVD; S1 and S2 Gastrointestinal: No tender; soft, round, audible bowel sounds Rectal: deferred Extremities: no lower extremity edema bilateral Neurologic/Psychiatric: grossly intact, power is 5/5 both on sides Skin: No rash, No ulcerations Data Review Labs Laboratory Tests 12/16/18 07:56: White Blood Count 6.9, Red Blood Count 5.24, Hemoglobin 14.6, Hematocrit 41, Mean Corpuscular Volume 77L, Mean Corpuscular Hemoglobin 28, Mean Corpuscular Hemoglobin Concent 36, Red Cell Distribution Width 14.6H, Platelet Count 276, Mean Platelet Volume 10.5H, Neutrophils (%) (Auto) 59, Lymphocytes (%) (Auto) 26 , Monocytes (%) (Auto) 12, Eosinophils (%) (Auto) 3, Basophils (%) (Auto) 1, Neutrophils # (Auto) 4.1, Lymphocytes # (Auto) 1.8, Monocytes # (Auto) 0.8, Eosinophils # (Auto) 0.2, Basophils # (Auto) 0.0, Prothrombin Time 13.5, INR Comment 1.0, Activated Partial Thromboplast Time 35, Sodium Level 131L, Potassium Level 4.5, Chloride Level 96L, Carbon Dioxide Level 15L, Anion Gap 20H , Blood Urea Nitrogen 14, Creatinine 1.06, Estimat Glomerular Filtration Rate > 60, BUN/Creatinine Ratio 13, Glucose Level 550*H, Calcium Level 9.1, Corrected Calcium 9.0, Magnesium Level 2.6H, Total Bilirubin 0.3, Aspartate Amino Transf ( AST/SGOT) 19, Alanine Aminotransferase (ALT/SGPT) 17, Alkaline Phosphatase 93, Myoglobin 21.3, Troponin I < 0.028, Total Protein 8.1, Albumin 4.1 12/16/18 07:58: Glucometer 508*H 12/16/18 08:43: Urine Color YELLOW, Urine Clarity CLEAR, Urine pH 5, Urine Specific [place] 1.015L, Urine Protein NEGATIVE, Urine Glucose (UA) 4+H, Urine Ketones NEGATIVE, Urine Nitrite NEGATIVE, Urine Bilirubin NEGATIVE, Urine Urobilinogen NORMAL, Urine Leukocyte Esterase NEGATIVE, Urine RBC (Auto) NEGATIVE, Urine RBC NONE, Urine WBC NONE, Urine Crystals NONE, Urine Bacteria NEGATIVE, Urine Casts NONE, Urine Mucus NEGATIVE, Urine Culture Indicated NO, Urine Opiates Screen NEGATIVE , Urine Oxycodone Screen NEGATIVE, Urine Methadone Screen NEGATIVE, Urine Propoxyphene Screen NEGATIVE, Urine Barbiturates Screen NEGATIVE, Ur Tricyclic Antidepressants Screen NEGATIVE, Urine Phencyclidine Screen NEGATIVE, Urine Amphetamines Screen NEGATIVE, Urine Methamphetamines Screen NEGATIVE, Urine Benzodiazepines Screen NEGATIVE, Urine Cocaine Screen NEGATIVE, Urine Cannabinoids Screen NEGATIVE 12/16/18 08:56: Glucometer 506*H 12/16/18 13:14: Glucometer 367H 12/16/18 16:16: Glucometer 356H A/P-Cardiology Assessment/Admission Diagnosis Chest pain consistent with unstable angina Coronary artery disease with history of multiple coronary interventions: Alpine Xience 2.25 x 28 mm on 04/30/2017 to distal right coronary (Dr. Payne), Alpine Xience 2.25 x 23 on 05/01/17to proximal left circumflex (Dr. Payne) and Alpine Xience 2.25 x 12 to proximal left circumflex on 05/22/2018 (Dr. Flowers ). Cardiac catheterization if 07-23-18 shows a 60% in-stent restenosis of left circumflex and 80 to 90% bifurcation stenosis of the distal right coronary to which percutaneous intervention was unsuccessful. The left anterior descending artery has moderate mid vessel disease. Well preserved global left ventricular systolic function with ejection fraction approximately 60%. There appears to be a very localized posterobasal hypokinesis to akinesis. Normal left ventricular end-diastolic pressure. L-sided dental abscess Palpitations: A Fl diagnosed on ILR on 05/31/18 OAC with Eliquis for stroke prophylaxis S/p ILR placement on 08/15/16 TSH normal on 08/03/16 Chronic REY, likely related to chronic tobacco use (probable COPD) and obesity ( BMI approx 35) Echo of 05/01/17 (Dr Payne): showed LVEF 55-65, no RWMA, mild MR, grade I diastolic dysfunction of LV DM II, managed by his fam phy Daytime tiredness and obesity are suggestive of sleep apnea syndrome. Further eval is advised, but he refuses Chronic tobacco use Carotid u/s of 08/28/16: mild bilat plaque AA screening scan: no AAA Obesity with BMI approx 33 Discussion and Recomendations * Repeat cath. Attempt ad hoc cor intervention again, if needed. We had a detailed discussion. He understands the pros and cons. He understands he has a complex lesion that carries a much higher risk of complication than usual. He does not wish to consider surgery. He wishes to proceed with percutaneous eval / intervention * Will treat with antibiotic for tooth abscess. Given unstable cor symptoms, cor procedure takes precedence over dental intervention * Further recs based on his hosp course * Continue Plavix and Eliquis and other card meds Clinical Quality Measures AMI/AHF: ASA po Prior to arrival: No DVT/VTE Risk/Contraindication: Risk Factor Score Per Nursin RFS Level Per Nursing on Admit: 4+=Very High DEANA MULLIGAN MD FACP FAC CCDS Dec 16, 2018 19:10
[2018-12-16] MEDS: ATORVASTATIN 80 MG (LIPITOR) TABLET PO SCH (19:48)
[2018-12-16] MEDS: APIXABAN 5 MG (ELIQUIS) TABLET PO SCH (19:48)
[2018-12-16] MEDS ORDERED: HYDROcodone/APAP 5 MG/325 MG (LORTAB) TAB ONE (20:07)
[2018-12-16] MEDS: HYDROcodone/APAP 5 MG/325 MG (LORTAB) TAB PO PRN (20:10)
[2018-12-17] VITALS (9 sets, daily range): BP systolic 113–145; BP diastolic 58–92
[2018-12-17 04:38] LABS: BASOPHILS % (AUTO) 0 % (0-10); EOSINOPHILS # (AUTO) 0.2 10^3/uL (0.0-0.3); EOSINOPHILS % (AUTO) 3 % (0-10); HEMATOCRIT 40 % (40-54); HEMOGLOBIN 13.6 G/DL (13.3-17.7); LYMPHOCYTES # (AUTO) 1.6 X 10^3 (1.0-4.0); LYMPHOCYTES % (AUTO) 23 % (12-44); MEAN CORPUSCULAR HEMOGLOBIN 27 PG (25-34); MEAN CORPUSCULAR HGB CONC 34 G/DL (32-36); MEAN CORPUSCULAR VOLUME 79 FL (80-99); MEAN PLATELET VOLUME 10.5 FL (7.4-10.4); MONOCYTES # (AUTO) 0.6 X 10^3 (0.0-1.0); MONOCYTES % (AUTO) 9 % (0-12); NEUTROPHILS # (AUTO) 4.6 X 10^3 (1.8-7.8); NEUTROPHILS % (AUTO) 65 % (42-75); PLATELET COUNT 235 10^3/uL (130-400); RED CELL DISTRIBUTION WIDTH 14.7 % (10.0-14.5); WHITE BLOOD COUNT 7.1 10^3/uL (4.3-11.0)
[2018-12-17 04:56] LABS: BUN/CREATININE RATIO 17; CALCIUM 8.9 MG/DL (8.5-10.1); CARBON DIOXIDE 17 MMOL/L (21-32); CHLORIDE 104 MMOL/L (98-107); CHOLESTEROL 415 MG/DL (< 200); CREATININE SERUM 0.77 MG/DL (0.60-1.30); GFR ESTIMATED > 60; GLUCOSE 223 MG/DL (70-105); HDL CHOLESTEROL 24 MG/DL (40-60); POTASSIUM 3.8 MMOL/L (3.6-5.0); SODIUM 134 MMOL/L (135-145); TRIGLYCERIDES 1729 MG/DL (<150); VLDL CHOLESTEROL 346 MG/DL (5-40)
[2018-12-17] MEDS: ACETAMINOPHEN 500 MG TAB (TYLENOL) PO PRN (05:41)
[2018-12-17] MEDS: inSUlin (REGULAR) HUMAN 1 UNIT/0.01 ML (CHARGE PER UNIT) SC SCH ×3 (05:53→16:11)
[2018-12-17] MEDS: inSUlin ASPART (NovoLOG) 1 UNIT/0.01 ML (CHARGE PER UNIT) SC SCH ×3 (05:53→16:11)
[2018-12-17] MEDS ORDERED: lisINopril 10 MG (PRINIVIL) TABLET PO SCH (09:00)
[2018-12-17] MEDS: CLOPIDOGREL 75 MG (PLAVIX) TABLET PO SCH (09:09)
[2018-12-17] MEDS: APIXABAN 5 MG (ELIQUIS) TABLET PO SCH (09:09)
[2018-12-17] MEDS: inSUlin DETERMIR 1 UNIT/0.01 ML (LEVEMIR) CHARGE PER UNIT SQ SCH (09:09)
[2018-12-17] MEDS: meTOproloL SUCCINATE 50 MG (TOPROL XL) TAB PO SCH (09:09)
[2018-12-17] MEDS: lisINopril 5 MG (PRINIVIL) TABLET PO SCH (09:37)
--- NOTE | 2018-12-17 11:24 | Discharge Summary-Hospitalist ---
Diagnosis/Chief Complaint Date of Admission Dec 16, 2018 at 10:09 Date of Discharge Admission Diagnosis Chest pain Diabetes mellitus out of control CAD Chronic atrial fibrillation Chronic anticoagulation for stroke prophylaxis from atrial fibrillation Chronic angina COPD Former smoker Plan: Intense insulin regimen Cardiology consultation Monitor closely Discharge Diagnosis (1) Presence of drug-eluting stent in left circumflex coronary artery Status: Acute (2) Chest pain Status: Resolved (3) Coronary artery disease Status: Chronic (4) GERD (gastroesophageal reflux disease) Status: Chronic (5) Hypertension Status: Chronic (6) Hyperlipidemia Status: Chronic (7) COPD (chronic obstructive pulmonary disease) Status: Chronic (8) Diabetes mellitus, type 2 Status: Chronic Discharge Summary Discharge Physical Exam Allergies: Coded Allergies: bee pollen (Unverified Allergy, Mild, 05/20/18) Vitals & I&Os Vital Signs Date Time Temp Pulse Resp B/P (MAP) Pulse Ox O2 Delivery O2 Flow Rate FiO2 12/17/18 16:00 96.8 70 18 113/64 (80) 97 Room Air General Appearance: No Apparent Distress, WD/WN, Chronically ill Respiratory: Chest Non Tender, Lungs Clear, Normal Breath Sounds, No Accessory Muscle Use, No Respiratory Distress Cardiovascular: Regular Rate, Rhythm, No Edema, No Gallop, No JVD, No Murmur, Normal Peripheral Pulses Neurologic/Psychiatric: Alert, Oriented x3, No Motor/Sensory Deficits, Normal Mood/Affect Hospital Course Was the Problem List Reviewed?: Yes Hospital Course: Pt had an uneventful hospital course he was admitted for unstable angina due to known CAD with inoperable coronary status. Pt continued to have chronic angina but he was taken to cardiac catheterization under Dr. José's direction and underwent stent placement in left circumflex artery. He was deemed stable for discharge under guidance of Dr José on 12/18/18. Labs (last 24 hrs) Laboratory Tests 12/17/18 03:25: White Blood Count 7.1, Red Blood Count 5.05, Hemoglobin 13.6, Hematocrit 40, Mean Corpuscular Volume 79L, Mean Corpuscular Hemoglobin 27, Mean Corpuscular Hemoglobin Concent 34, Red Cell Distribution Width 14.7H, Platelet Count 235, Mean Platelet Volume 10.5H, Neutrophils (%) (Auto) 65, Lymphocytes (%) (Auto) 23 , Monocytes (%) (Auto) 9, Eosinophils (%) (Auto) 3, Basophils (%) (Auto) 0, Neutrophils # (Auto) 4.6, Lymphocytes # (Auto) 1.6, Monocytes # (Auto) 0.6, Eosinophils # (Auto) 0.2, Basophils # (Auto) 0.0, Sodium Level 134L, Potassium Level 3.8, Chloride Level 104, Carbon Dioxide Level 17L, Anion Gap 13, Blood Urea Nitrogen 13, Creatinine 0.77, Estimat Glomerular Filtration Rate > 60, BUN/ Creatinine Ratio 17, Glucose Level 223H, Calcium Level 8.9, Triglycerides Level 1729H, Cholesterol Level 415H, LDL Cholesterol Direct 55, VLDL Cholesterol 346H , HDL Cholesterol 24L 12/17/18 05:47: Glucometer 231H 12/17/18 11:21: Glucometer 189H 12/17/18 15:51: Glucometer 202H Patient resulted labs reviewed. Pending Labs Laboratory Tests 12/17/18 15:51: Glucometer 202 Discussion & Recommendations Discharge Planning: <30 minutes discharge planning Discharge Home Medications: Active Scripts Active Reported Lisinopril 2.5 Mg Tablet 2.5 Mg PO DAILY Metoprolol Succinate 50 Mg Tab.er.24h 50 Mg PO DAILY Isosorbide Mononitrate ER (Isosorbide Mononitrate) 120 Mg Tab.er.24h 120 Mg PO DAILY Lantus (Insulin Glargine,Hum.rec.anlog) 100 Unit/1 Ml Vial 20 Unit SQ HS Metformin HCl 1,000 Mg Tablet 1,000 Mg PO BID Prilosec Otc (Omeprazole Magnesium) 20 Mg Tablet.dr 20 Mg PO DAILY Plavix (Clopidogrel Bisulfate) 75 Mg Tablet 75 Mg PO DAILY Lipitor (Atorvastatin Calcium) 80 Mg Tablet 80 Mg PO HS Eliquis (Apixaban) 5 Mg Tablet 5 Mg PO BID Victoza 3-Paresh (Liraglutide) 0.6 Mg/0.1 Ml Pen.injctr 1.8 Mg SQ DAILY Symbicort 160-4.5 Mcg Inhaler (Budesonide/Formoterol Fumarate) 10.2 Gm Hfa.aer.ad 2 Puff IH BID Instructions to patient/family Please see electronic discharge instructions given to patient. Clinical Quality Measures AMI/AHF: ASA po Prior to arrival: No DVT/VTE Risk/Contraindication: Risk Factor Score Per Nursin RFS Level Per Nursing on Admit: 4+=Very High Problem Qualifiers (1) Chest pain: Chest pain type: unspecified Qualified Codes: R07.9 - Chest pain, unspecified (2) Coronary artery disease: Coronary Disease-Associated Artery/Lesion type: [place] artery [place] vs. transplanted heart: [place] heart Associated angina: with stable angina Qualified Codes: I25.118 - Atherosclerotic heart disease of [place] coronary artery with other forms of angina pectoris (3) GERD (gastroesophageal reflux disease): Esophagitis presence: without esophagitis Qualified Codes: K21.9 - Gastro- esophageal reflux disease without esophagitis (4) Hypertension: Hypertension type: essential hypertension Qualified Codes: I10 - Essential ( primary) hypertension (5) Hyperlipidemia: Hyperlipidemia type: mixed hyperlipidemia Qualified Codes: E78.2 - Mixed hyperlipidemia (6) COPD (chronic obstructive pulmonary disease): COPD type: unspecified COPD Qualified Codes: J44.9 - Chronic obstructive pulmonary disease, unspecified (7) Diabetes mellitus, type 2: 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
[2018-12-17] MEDS: HYDROcodone/APAP 5 MG/325 MG (LORTAB) TAB PO PRN ×2 (12:22→16:18)
[2018-12-17] MEDS ORDERED: NS IV 1000 ML 3,000 ML ONE (16:32)
[2018-12-17] MEDS ORDERED: HEParin 1000 UNIT/ML (10ML VIAL) FOR BOLUS ONE ×2 (16:32→18:15)
[2018-12-17] MEDS ORDERED: LIDOCAINE 1% INJ 20 ML 20 ML VIAL ONE (16:32)
[2018-12-17] MEDS ORDERED: fentaNYL INJECTION 100 MCG/2 ML AMP ONE ×2 (17:03→19:20)
[2018-12-17] MEDS ORDERED: MIDAZOLAM 5 MG/5 ML (VERSED) VIAL ONE ×2 (17:03→19:22)
[2018-12-17] MEDS ORDERED: NITRO DRIP 25000 MCG/D5W 250 ML IV ONE (18:16)
[2018-12-17] MEDS ORDERED: EPTIFIBATIDE BOLUS 20 ML IV ONE (18:17)
--- NOTE | 2018-12-17 18:39 | NUR ---
REPORT GIVEN TO FARSHAD BUNCH.
--- NOTE | 2018-12-17 19:15 | Cardiac Procedure Note-CS/ASA ---
Pre-Procedure Note Pre-Op Procedure Note H&P Reviewed The H&P was reviewed, patient examined and no changes noted. Date H&P Reviewed: Dec 17, 2018 Time H&P Reviewed: 18:30 Conscious Sedation Pre-Proced Time 18:30 ASA Score 3 For ASA 3 and 4: Consider anesthesia and medical clearance. Also, for patients with a history of failed moderate sedation consider anesthesia. Airway Lungs Heart ASA score ASA 1: a normal healthy patient ASA 2: a patient with a mild systemic disease (mid diabetes, controlled hypertension, obesity ASA 3: a patient with a severe systemic disease that limits activity (angina , COPD, prior Myocardial infarction) ASA 4: a patient with an incapacitating disease that is a constant threat to life (CHF, renal failure) ASA 5: a moribund patient not expected to survive 24 hrs. (ruptured aneurysm) ASA 6: a declared brain- patient whose organs are being harvested. For emergent operations, add the letter E after the classification Mallampati Classification Grade 2 Sedation Plan Analgesia, Amnesia, Plan communicated to team members, Discussed options with patient/fam, Discussed risks with patient/fam The patient is an appropriate candidate to undergo the planned procedure, sedation, and anesthesia. The patient immediately re-assessed prior to indication. DEANA MULLIGAN MD FACP FAC CCDS Dec 17, 2018 19:15
[2018-12-17] MEDS ORDERED: CLOPIDOGREL 300 MG (PLAVIX) TABLET PO ONE (19:37)
[2018-12-17] MEDS ORDERED: ASPIRIN 81 MG CHEW (CHILDREN'S ASA) ONE (19:37)
--- NOTE | 2018-12-17 20:03 | Progress Note-Cardiology ---
Cardiology SOAP Progress Note Subjective: No more chest discomfort since adm Chronic exertional shortness of breath No palp or syncope Objective: I&O/Vital Signs 12/17/18 12/17/18 12/17/18 12/17/18 08:00 08:00 12:00 16:00 Temp 98.0 98.9 96.8 Pulse 75 71 70 Resp 18 18 18 B/P (MAP) 114/68 (83) 123/70 (87) 113/64 (80) Pulse Ox 97 95 97 O2 Delivery Room Air Room Air Room Air Room Air 12/17/18 00:00 Intake Total 800 ml Output Total 600 ml Balance 200 ml Weight (Pounds): 214 Weight (Ounces): 0.0 Weight (Calculated Kilograms): 97.415190 Constitutional: AAO x 3, well-developed, well-nourished Respiratory: No accessory muscle use, No respiratory distress; chest expansion is symmetric, chest is bilaterally symmetric, lungs clear to auscultation, other (prolonged expiratory phase) Cardiovascular: regular rate-rhythm; No JVD; S1 and S2 Gastrointestional: No tender; soft, round, audible bowel sounds Extremities: no lower extremity edema bilateral Neurologic/Psychiatric: grossly intact, power is 5/5 both on sides Skin: No rash, No ulcerations Results/Procedures: Labs Laboratory Tests 12/16/18 20:34: Glucometer 268H 12/17/18 03:25: White Blood Count 7.1, Red Blood Count 5.05, Hemoglobin 13.6, Hematocrit 40, Mean Corpuscular Volume 79L, Mean Corpuscular Hemoglobin 27, Mean Corpuscular Hemoglobin Concent 34, Red Cell Distribution Width 14.7H, Platelet Count 235, Mean Platelet Volume 10.5H, Neutrophils (%) (Auto) 65, Lymphocytes (%) (Auto) 23 , Monocytes (%) (Auto) 9, Eosinophils (%) (Auto) 3, Basophils (%) (Auto) 0, Neutrophils # (Auto) 4.6, Lymphocytes # (Auto) 1.6, Monocytes # (Auto) 0.6, Eosinophils # (Auto) 0.2, Basophils # (Auto) 0.0, Sodium Level 134L, Potassium Level 3.8, Chloride Level 104, Carbon Dioxide Level 17L, Anion Gap 13, Blood Urea Nitrogen 13, Creatinine 0.77, Estimat Glomerular Filtration Rate > 60, BUN/ Creatinine Ratio 17, Glucose Level 223H, Calcium Level 8.9, Triglycerides Level 1729H, Cholesterol Level 415H, LDL Cholesterol Direct 55, VLDL Cholesterol 346H , HDL Cholesterol 24L 12/17/18 05:47: Glucometer 231H 12/17/18 11:21: Glucometer 189H 12/17/18 15:51: Glucometer 202H Laboratory Tests 12/16/18 07:56 12/17/18 03:25 A/P: Assessment: Unstable angina, treated with PCI to LCX (see below) Coronary artery disease with history of multiple coronary interventions: Alpine Xience 2.25 x 28 mm on 04/30/2017 to distal right coronary (Dr. Payne), Alpine Xience 2.25 x 23 on 05/01/17to proximal left circumflex (Dr. Payne) and Alpine Xience 2.25 x 12 to proximal left circumflex on 05/22/2018 (Dr. Flowers ). Card cath of 12/17/18 showed up to 90% prox and in-stent restenosis of left circumflex to which successful stenting was carried out with Citlalli 2.5 x 12 mm stent. RCA has 50-60% prox and approx 70% stenosis in the ostial PDA and distal PL (just past a patent stented segment in distal RCA). The left anterior descending artery has moderate mid vessel disease. Posterobasal akinesis. LVEF 50%. LVEDP 13 mmHg L-sided dental abscess Palpitations: A Fl diagnosed on ILR on 05/31/18 OAC with Eliquis for stroke prophylaxis S/p ILR placement on 08/15/16 TSH normal on 08/03/16 Chronic REY, likely related to chronic tobacco use (probable COPD) and obesity ( BMI approx 35) Echo of 05/01/17 (Dr Payne): showed LVEF 55-65, no RWMA, mild MR, grade I diastolic dysfunction of LV DM II, managed by his fam phy Suspected SAEED. Further eval is advised, but he refuses Chronic tobacco use, cessation advised Carotid u/s of 08/28/16: mild bilat plaque AAA screening scan: no AAA Plan: * I discussed cath findings and interventions undertaken with him and his fam in detail * Continue Plavix and Eliquis and other card meds * Also continue ASA for two weeks * F/u at our office within two weeks * Management of dental abscess is with the Med Svce (Dr Abdul) and with patient 's dentist Clinical Quality Measures AMI/AHF: ASA po Prior to arrival: DEANA Li MD FACP FAC CCDS Dec 17, 2018 20:03
[2018-12-17] MEDS ORDERED: ATROPINE INJECTION 1 MG/10 ML SYR (ABBOTT) ONE (22:41)
[2018-12-17] MEDS: morphine INJ 4 MG/ML 1 ML (VIAL/SYRINGE) IVP PRN (23:33)
[2018-12-18] VITALS: BP 126/79
[2018-12-18] MEDS: ATORVASTATIN 80 MG (LIPITOR) TABLET PO SCH (00:38)
[2018-12-18] MEDS: APIXABAN 5 MG (ELIQUIS) TABLET PO SCH ×2 (00:39→08:35)
[2018-12-18] MEDS: inSUlin (REGULAR) HUMAN 1 UNIT/0.01 ML (CHARGE PER UNIT) SC SCH ×2 (00:39→06:56)
[2018-12-18] MEDS: HYDROcodone/APAP 5 MG/325 MG (LORTAB) TAB PO PRN (00:39)
[2018-12-18] MEDS: inSUlin ASPART (NovoLOG) 1 UNIT/0.01 ML (CHARGE PER UNIT) SC SCH ×2 (00:40→06:57)
[2018-12-18 01:00] VITALS: BP 129/68
[2018-12-18 02:00] VITALS: BP 113/80
[2018-12-18 03:00] VITALS: BP 108/71
[2018-12-18 04:00] VITALS: BP 112/97
[2018-12-18] MEDS: morphine INJ 4 MG/ML 1 ML (VIAL/SYRINGE) IVP PRN (05:05)
--- NOTE | 2018-12-18 07:41 | CARDIAC CATHETERIZATION ---
DATE OF SERVICE: 12/17/2018 CARDIAC CATHETERIZATION AND CORONARY INTERVENTION REPORT The patient is a 53-year-old man with known coronary artery disease, who was hospitalized with unstable angina. Cardiac catheterization was carried out today after having obtained an informed consent for cardiac catheterization and possible Ad-hoc coronary intervention. PROCEDURE: He was brought to the cardiac catheterization laboratory in a fasting state. Right groin was prepared and draped in the usual sterile fashion. A 1% lidocaine was used for local anesthesia. Modified Seldinger technique was used to advance a 5-Mozambican sheath in right femoral artery, 5-Mozambican JL 3.5 catheter was used for right coronary angiography and 5-Mozambican JR4 catheter for right angiography, 5-Mozambican pigtail catheter was used for left heart catheterization, left ventricular angiography. PERCUTANEOUS INTERVENTION TO THE LEFT CIRCUMFLEX ARTERY: Following completion of the diagnostic procedure, we carried out percutaneous intervention to the proximal left anterior descending artery where the patient had 70 to 80% proximal ostial stenosis and up to 90% stenosis of the proximal portion of a previously placed stent. We exchanged the sheath over a wire for a 6-Mozambican sheath. We used a 6-Mozambican JL4 guide catheter. We gave 7000 units of intravenous heparin and double bolus Integrilin. We used a 6-Mozambican JL3.5 guide catheter. We used different wires, but crossing the lesion into the left circumflex artery was difficult because of the left circumflex artery has a 90 degree takeoff from the left main coronary artery. We were, finally able to cross the lesion and with a Whisper medium support wire and the tip was placed in the distal vessel. We carried out balloon angioplasty in the ostial and proximal left circumflex and the proximal portion of the previously stented portion of the left circumflex with Emerge 2.5 x 20 mm balloon. This resulted in good results and the stenosis was reduced to 0% residual stenosis with normal antegrade flow. At this point, we removed the angioplasty equipment and sutured the sheath in place, but while the patient was still on the table, he started to have marked chest pain. Therefore, we went in again with JL3.5 diagnostic catheter and found that the site of angioplasty was recoiling and that there was recurrent stenosis of a considerable degree. Therefore, we removed the diagnostic catheter and again advance the JL3.5 guide catheter, engage the coronary vessel, advanced Whisper medium support wire across the lesion with the tip placed in the distal vessel and then, with moderate difficulty we were able to advance Alpine Xience 2.5 x 12 mm stent to the lesion. This was very carefully positioned such that the proximal end of the stent is positioned just at the ostium of the left circumflex and the distal end of the stent slightly overlaps the previously stented portion. The stent was deployed at 16 atmospheres. Full stent expansion was achieved and subsequent angiography revealed 0% residual stenosis at the previous site of up to 80% stenosis. Flow throughout the vessel was normal. He tolerated the procedure well. Angioplasty equipment was removed. Sheath was sutured in place and he was transferred out of cardiac catheterization laboratory. HEMODYNAMICS: Left ventricular end-diastolic pressure following coronary angiography was 13 mmHg. There is no significant pressure gradient on pullback across the aortic valve. Ascending aortic pressure was 106/61 with a mean of 76 mmHg. CORONARY ANGIOGRAPHY: Left main coronary artery does not exhibit significant obstructive disease. Left anterior descending artery has diffuse mild to moderate disease. The mid left circumflex artery has approximately 50% stenosis. A ramus intermedius branch does not exhibit significant disease. The left circumflex artery is stented in its proximal and mid portions and was exhibiting up to 90% stenosis that extends into the proximal portion of the stented segment. To this, successful intervention was carried out that is detailed above. Following deployment of Xience Citlalli 2.5 x 12 mm stent, there is 0% residual stenosis and normal antegrade flow. The right coronary artery is dominant. It has 50 to 60% proximal stenosis. The distal segment of the right coronary artery is stented and the stents are patent. The posterior descending branch appears to arise from within the stented segment and has approximately 70 to 80% stenosis and so does the continuation of the posterolateral following the stented segment. These lesions were not intervened on because these were not felt to be the culprit lesions. LEFT VENTRICULAR ANGIOGRAPHY: Left ventricular angiography was carried out in the right anterior oblique projection. Global left ventricular systolic function is well preserved. Left ventricular ejection fraction approximately 45-50%. There is posterobasal akinesis. There does not appear to be significant mitral regurgitation on the study. CONCLUSIONS: 1. Coronary artery disease consisting up to 90% proximal stenosis within the left circumflex, which was extending into the standard portion of the proximal left circumflex and to which successful stenting was carried out with Xience Citlalli 2.5 x 12 mm stent today (12/17/2018). The patient is known to have overlapping proximal left circumflex artery stents (Alpine Xience 2.25 x 23 and Alpine Xience 2.25 x 12). Today's stent slightly overlaps the proximal portion of this stented segment. The left anterior descending artery has approximately 50% mid vessel stenosis. The right coronary artery is dominant and has 50 to 60% proximal stenosis, patent stented segment in the distal right coronary artery, but there is 70% stenosis in the distal posterolateral and the ostial and proximal posterior descending which arises from the stented segment. 3. Mildly elevated left ventricular end-diastolic pressure. 4. Well preserved global left ventricular systolic function with ejection fraction of approximately 50%. 5. Posterobasal akinesis. DISCUSSION AND RECOMMENDATIONS: Once again, he has been advised to refrain from tobacco use. We have advised compliance with medications. His regimen of Eliquis is being continued because he is known to have paroxysmal atrial flutter. Plavix is being continued because of his coronary stents. We will also continue low dose aspirin for now, given recent coronary stenting. We will consider discontinuing aspirin in a couple of weeks. Plavix needs to be continued for at least a year from today's intervention. Once a year of Plavix is completed, we will plan to switch out to aspirin that would need to be continued indefinitely. Eliquis needs to be continued indefinitely. Close outpatient followup is advised. Job ID: [id number] DocumentID: [id number] Dictated Date: 12/17/2018 19:51:21 [employer]otive Service Manager Date: 12/18/2018 04:11:44 Dictated By: DEANA MULLIGAN MD, MA, FACP, FACC,
[2018-12-18 08:00] VITALS: BP 118/81
[2018-12-18] MEDS: meTOproloL SUCCINATE 50 MG (TOPROL XL) TAB PO SCH (08:35)
[2018-12-18] MEDS: CLOPIDOGREL 75 MG (PLAVIX) TABLET PO SCH (08:35)
[2018-12-18] MEDS: lisINopril 5 MG (PRINIVIL) TABLET PO SCH (08:35)
[2018-12-18] MEDS: inSUlin DETERMIR 1 UNIT/0.01 ML (LEVEMIR) CHARGE PER UNIT SQ SCH (08:35)
[2018-12-18] MEDS ORDERED: ASPI-999 PO (09:35)
--- NOTE | 2018-12-18 10:04 | Cardiology Progress Note ---
Cardiology SOAP Progress Note Subjective: No further chest pain. Objective: I&O/Vital Signs 12/18/18 00:00 Intake Total 420 ml Output Total 400 ml Balance 20 ml Weight (Pounds): 214 Weight (Ounces): 0.0 Weight (Calculated Kilograms): [id number] Constitutional: AAO x 3, well-developed, well-nourished Respiratory: No accessory muscle use, No respiratory distress; chest expansion is symmetric, chest is bilaterally symmetric, lungs clear to auscultation, other (prolonged expiratory phase) Cardiovascular: regular rate-rhythm; No JVD; S1 and S2 Gastrointestional: No tender; soft, round, audible bowel sounds Extremities: no lower extremity edema bilateral Neurologic/Psychiatric: grossly intact, power is 5/5 both on sides Skin: No rash, No ulcerations Results/Procedures: Labs Laboratory Tests 12/17/18 22:00: Activated Partial Thromboplast Time 37H 12/17/18 23:38: Glucometer 252H 12/18/18 06:54: Glucometer 233H A/P: Assessment/Dx: Chest pain consistent with unstable angina Coronary artery disease with history of multiple coronary interventions: Alpine Xience 2.25 x 28 mm on 04/30/2017 to distal right coronary (Dr. Payne), Alpine Xience 2.25 x 23 on 05/01/17to proximal left circumflex (Dr. Payne) and Alpine Xience 2.25 x 12 to proximal left circumflex on 05/22/2018 (Dr. Flowers ). Cardiac catheterization if 07-23-18 shows a 60% in-stent restenosis of left circumflex and 80 to 90% bifurcation stenosis of the distal right coronary to which percutaneous intervention was unsuccessful. The left anterior descending artery has moderate mid vessel disease. Well preserved global left ventricular systolic function with ejection fraction approximately 60%. There appears to be a very localized posterobasal hypokinesis to akinesis. Normal left ventricular end-diastolic pressure. L-sided dental abscess Palpitations: A Fl diagnosed on ILR on 05/31/18 OAC with Eliquis for stroke prophylaxis S/p ILR placement on 08/15/16 TSH normal on 08/03/16 Chronic REY, likely related to chronic tobacco use (probable COPD) and obesity ( BMI approx 35) Echo of 05/01/17 (Dr aPyne): showed LVEF 55-65, no RWMA, mild MR, grade I diastolic dysfunction of LV DM II, managed by his fam phy Daytime tiredness and obesity are suggestive of sleep apnea syndrome. Further eval is advised, but he refuses Chronic tobacco use Carotid u/s of 08/28/16: mild bilat plaque AA screening scan: no AAA Obesity with BMI approx 33 Plan: Dual antiplatelet therapy, continue rest of the medications for CAD. Patient she'll be discharged to follow with Dr. José. Thank you for your consultation. Please call me if you have any questions. Nahun Payne MD, FACP, FACC, FSCAI, FHRS, CCDS Interventional Cardiology Cardiac Electrophysiology Vascular Medicine and Endovascular Interventions Clinical Quality Measures AMI/AHF: ASA po Prior to arrival: Priscilla Chauhan MD Dec 18, 2018 10:04
--- NOTE | 2018-12-18 10:06 | Discharge Inst-Post CATH ---
Discharge Inst-CATH/EP Post Cardiac Cath/EP D/C Inst Follow Up/Plan Dr José in two to three weeks. CARDIAC CATH DISCHARGE INSTRUCTIONS *Hold Metformin for 48 hours post heart cath. ACTIVITY * Go Home directly and rest. * Limit activity of the leg (or wrist if it was used) for 7 days including aerobics, swimming, jogging, bicycling, etc. * Restrict stair-climbing for 7 days if possible, if not, climb up with your non -cath leg, then bring together on the same step. * Avoid lifting, pushing, pulling or excessive movement of the affected extremity for 7 days. * Customary sexual activity may be resumed after 2 days-use caution not to use a position that strains or causes pain to the affected extremity. * No driving for 24 hours. * NO SMOKING. * Avoid straining for bowel movements for 7 days. * Gentle walking on level ground is allowed. * Returning to work will depend on the type of procedure and the results. Your doctor will discuss this with you. CALL YOUR DOCTOR FOR ANY OF THE FOLLOWING: *If bleeding from the puncture site occurs- Apply gentle pressure to site with clean cloth and call your doctor or EMS. * If a knot or lump forms under the skin, increases in size, or causes pain. * If bruising appears to be worsening or moving further down your leg instead of disappearing. * Temperature above 101 F. CARE OF YOUR GROIN INCISION; * Bruising or purple discoloration of the skin near the puncture site is common. * You may shower only, no bathtub bathing for 5 days. Be careful to avoid slipping as your leg may feel stiff. * If a closure device was used on your femoral artery, please see the attached guide regarding care of the device and your leg. * Leave the dressing on, until removed by office staff. CARE OF YOUR WRIST INCISION; * Bruising or purple discoloration of the skin near the puncture site is common. * You may shower. * DO NOT submerge wrist. * Leave dressing on, until removed by office staff.. Priscilla WAGGONER MD Dec 18, 2018 10:06
== END 2018-12-18 10:01 | disposition home or self-care (01) ==
LOC: EDUNIT# 07:40 → ER 07:41 → UNDOADMOB 10:09 → ICU 10:09 → 4TH 11:25 → ICU 11:25 → 4TH 11:30 → ICU 11:30 → 4TH 12-17 02:12 → ICU 12-17 19:00
PROVIDERS: ADMIT Internal Medicine; ATTEND Internal Medicine
DX: I25.110 Atherosclerotic heart disease of native coronary artery with unstable angina pectoris (principal); E11.65 Type 2 diabetes mellitus with hyperglycemia; I48.91 Unspecified atrial fibrillation; I10 Essential (primary) hypertension; E78.5 Hyperlipidemia, unspecified; J44.9 Chronic obstructive pulmonary disease, unspecified; F17.290 Nicotine dependence, other tobacco product, uncomplicated; E11.59 Type 2 diabetes mellitus with other circulatory complications; K21.9 Gastro-esophageal reflux disease without esophagitis; K04.7 Periapical abscess without sinus; I65.23 Occlusion and stenosis of bilateral carotid arteries; G47.10 Hypersomnia, unspecified; I25.2 Old myocardial infarction; E66.9 Obesity, unspecified; Z68.33 Body mass index [BMI] 33.0-33.9, adult; Z79.01 Long term (current) use of anticoagulants; Z79.02 Long term (current) use of antithrombotics/antiplatelets; Z79.4 Long term (current) use of insulin; Z79.899 Other long term (current) drug therapy; Z95.5 Presence of coronary angioplasty implant and graft
CPT/HCPCS: 36415; 71045; 80048; 80053; 80061; 80306; 81000; 82962; 83036; 83735; 83874; 84484; 85025; 85610; 85730; 93005; 93041; 93306; 93458; 96360; 96372; G0378

== ENCOUNTER 2019-01-08 03:44 | Observation (INO) | payer SELFPAY ==
[2019-01-08] VITALS (8 sets, daily range): BP systolic 105–122; BP diastolic 63–78
[~2019-01-08] VITALS: Ht 175.3 cm; Wt 94.9 kg
[~2019-01-08 03:44] MED LIST changes: +ASPI-999 PO; +ISOS120T9 PO; +LISI2.5T PO; +METO-370 PO
[2019-01-08] MEDS ORDERED: NITROGLYCERIN 0.4 MG SL TABS BTL 25'S SL ONE (03:56)
[2019-01-08] MEDS ORDERED: ASPIRIN 81 MG CHEW (CHILDREN'S ASA) ONE (03:56)
[2019-01-08 04:06] LABS: BASOPHILS % (AUTO) 0 % (0-10); EOSINOPHILS # (AUTO) 0.2 10^3/uL (0.0-0.3); EOSINOPHILS % (AUTO) 2 % (0-10); HEMATOCRIT 42 % (40-54); HEMOGLOBIN 14.6 G/DL (13.3-17.7); LYMPHOCYTES # (AUTO) 2.4 X 10^3 (1.0-4.0); LYMPHOCYTES % (AUTO) 21 % (12-44); MEAN CORPUSCULAR HEMOGLOBIN 28 PG (25-34); MEAN CORPUSCULAR HGB CONC 35 G/DL (32-36); MEAN CORPUSCULAR VOLUME 80 FL (80-99); MEAN PLATELET VOLUME 9.9 FL (7.4-10.4); MONOCYTES # (AUTO) 0.9 X 10^3 (0.0-1.0); MONOCYTES % (AUTO) 8 % (0-12); NEUTROPHILS # (AUTO) 7.8 X 10^3 (1.8-7.8); NEUTROPHILS % (AUTO) 69 % (42-75); PLATELET COUNT 297 10^3/uL (130-400); RED CELL DISTRIBUTION WIDTH 14.8 % (10.0-14.5); WHITE BLOOD COUNT 11.3 10^3/uL (4.3-11.0)
--- OUTSIDE RECORDS SUMMARY | 2019-01-08 04:13 | XMS REPORT | Continuity of Care Document ---
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 03:25 Blood leukocytes automated count (number/volume) 7.1 10*3/uL 4.3-11.0 Blood erythrocytes automated count (number/volume) 5.05 10*6/uL 4.35-5.85 Venous blood hemoglobin measurement (mass/volume) 13.6 g/dL 13.3-17.7 Blood hematocrit (volume fraction) 40 % 40-54 Automated erythrocyte mean corpuscular volume 79 [foz_us] 80-99 Automated erythrocyte mean corpuscular hemoglobin (mass per erythrocyte) 27 pg 25-34 Automated erythrocyte mean corpuscular hemoglobin concentration measurement ( mass/volume) 34 g/dL 32-36 Automated erythrocyte distribution width ratio 14.7 % 10.0-14.5 Automated blood platelet count (count/volume) 235 10*3/uL 130-400 Automated blood platelet mean volume measurement 10.5 [foz_us] 7.4-10.4 Automated blood neutrophils/100 leukocytes 65 % 42-75 Automated blood lymphocytes/100 leukocytes 23 % 12-44 Blood monocytes/100 leukocytes 9 % 0-12 Automated blood eosinophils/100 leukocytes 3 % 0-10 Automated blood basophils/100 leukocytes 0 % 0-10 Blood neutrophils automated count (number/volume) 4.6 10*3 1.8-7.8 Blood lymphocytes automated count (number/volume) 1.6 10*3 1.0-4.0 Blood monocytes automated count (number/volume) 0.6 10*3 0.0-1.0 Automated eosinophil count 0.2 10*3/uL 0.0-0.3 Automated blood basophil count (count/volume) 0.0 10*3/uL 0.0-0.1 Whole blood basic metabolic panel - 12/17/18 03:25 Serum or plasma sodium measurement (moles/volume) 134 mmol/L 135-145 Serum or plasma potassium measurement (moles/volume) 3.8 mmol/L 3.6-5.0 Serum or plasma chloride measurement (moles/volume) 104 mmol/L 98-107 Carbon dioxide 17 mmol/L 21-32 Serum or plasma anion gap determination (moles/volume) 13 mmol/L 5-14 Serum or plasma urea nitrogen measurement (mass/volume) 13 mg/dL 7-18 Serum or plasma creatinine measurement (mass/volume) 0.77 mg/dL 0.60-1.30 Serum or plasma urea nitrogen/creatinine mass ratio 17 NRG Serum or plasma creatinine measurement with calculation of estimated glomerular filtration rate > NRG Serum or plasma glucose measurement (mass/volume) 223 mg/dL 70-105 Serum or plasma calcium measurement (mass/volume) 8.9 mg/dL 8.5-10.1 Lipid 1996 panel - 12/17/18 03:25 Serum or plasma triglyceride measurement (mass/volume) 1729 mg/dL <150 Serum or plasma cholesterol measurement (mass/volume) 415 mg/dL < 200 Serum or plasma cholesterol in HDL measurement (mass/volume) 24 mg/ dL 40-60 Cholesterol in LDL [mass/volume] in serum or plasma by direct assay 55 mg/dL 1-129 Serum or plasma cholesterol in VLDL measurement (mass/volume) 346 mg /dL 5-40 Capillary blood glucose measurement by glucometer (mass/volume) - 12/17/18 05: 47 Capillary blood glucose measurement by glucometer (mass/volume) 231 mg/dL 70-110 Capillary blood glucose measurement by glucometer (mass/volume) - 12/17/18 11: 21 Capillary blood glucose measurement by glucometer (mass/volume) 189 mg/dL 70-110 Capillary blood glucose measurement by glucometer (mass/volume) - 12/17/18 15: 51 Capillary blood glucose measurement by glucometer (mass/volume) 202 mg/dL 70-110 Activated partial thromboplastin time (aPTT) in platelet poor plasma bycoagulation assay - 12/17/18 22:00 Activated partial thromboplastin time (aPTT) in platelet poor plasma bycoagulation assay 37 s 24-35 Capillary blood glucose measurement by glucometer (mass/volume) - 12/17/18 23: 38 Capillary blood glucose measurement by glucometer (mass/volume) 252 mg/dL 70-110 Capillary blood glucose measurement by glucometer (mass/volume) - 12/18/18 06: 54 Capillary blood glucose measurement by glucometer (mass/volume) 233 mg/dL 70-110 Encounters ACCT No. Visit Date/Time Discharge Status Pt. Type Provider Facility Loc./Unit Complaint [id number] 12/16/2018 11:30:00 12/18/2018 10:06:00 DIS Outpatient HUNTER BLOOM DO [facility] CP R/O ACS, HYPOGLYCEMIA [id number] 07/23/2018 06:56:00 07/24/2018 11:05:00 DIS Outpatient ISAAK VANCE FACC, DEANA CARVER CCDS [facility] STABLE ANGINA PECTORIS [id number] 07/09/2018 11:30:00 07/09/2018 23:59:59 CLS Preadmit ISAAK VANCE FACC, DEANA FACP CCDS [facility] CARD SOB [id number] 05/20/2018 17:12:00 05/23/2018 10:40:00 DIS Outpatient DUNIA SANTOS MD [facility] CHEST PAIN [id number] 06/12/2017 07:28:00 06/12/2017 23:59:59 CLS Outpatient ISAAK VANCE FACC, DEANA FACP CCDS [facility] LAB I25.10,E78.4 [id number] 04/30/2017 17:47:00 05/02/2017 12:30:00 DIS Inpatient HUNTER BLOOM DO [facility] ICU NSTEMI,LEFT BASILAR PNA [id number] 08/18/2016 14:06:00 08/18/2016 16:46:00 DIS Emergency EDNA RUBALCAVA [facility] ER POSS KIDNEY STONE/ UNABLE TO URINATE [id number] 08/15/2016 12:15:00 08/15/2016 14:00:00 DIS Outpatient ISAAK VANCE FACC, DEANA CARVER CCDS [facility] PALPITATIONS, PAF [id number] 08/03/2016 19:22:00 08/03/2016 21:28:00 DIS Emergency SHONCLYDE Chilel DO K [facility] ER CP [id number] 10/21/2015 06:53:00 10/21/2015 23:59:59 CLS Outpatient ISAAK VANCE FACC, DEANA FACP CCDS [facility] CARD HTN, TACHYCARDIA,PALPITATIONS [id number] 10/20/2015 11:42:00 10/20/2015 23:59:59 CLS Outpatient ISAAK VANCE FACC, DEANA FACP CCDS [facility] CARD HTN, TACHYCARDIA [id number] 05/03/2015 05:23:00 05/03/2015 07:12:00 DIS Emergency MELONIE RUIZ DO [facility] ER L HIP PAIN [id number] 04/05/2015 17:38:00 04/05/2015 18:30:00 DIS Emergency MARKUS GONZALEZ APRN [facility] ER RT HAND PAIN [id number] 01/10/2015 21:31:00 01/10/2015 22:29:00 DIS Emergency MAC VANCE, CHAPO Thompson [facility] ER RT KNEE PAIN [id number] 09/13/2018 04:55:00 Document Registration [id number] 01/10/2015 21:31:00 Document Registration [id number] 05/12/2012 19:00:00 Document Registration [id number] 09/12/2016 18:05:00 Document Registration [id number] 07/12/2016 10:05:00 Document Registration [id number] 03/19/2017 11:07:00 Document Registration [id number] 11/07/2018 13:45:00 11/07/2018 23:59:59 [facility] Outpatient DANIELLE VANCE, [facility]IA [facility] [id number] 11/16/2017 08:40:00 Document Registration
[2019-01-08] MEDS ORDERED: NITROGLYCERIN 0.4 MG SL TABS BTL 25'S SL PRN ×2 (04:15→06:45)
[2019-01-08] MEDS ORDERED: ASPIRIN 81 MG CHEW (CHILDREN'S ASA) PO ONE (04:15)
[2019-01-08 04:17] LABS: INR 1.1 (0.8-1.4); PROTHROMBIN TIME PATIENT 14.3 SEC (12.2-14.7)
[2019-01-08 04:24] LABS: ALANINE AMINOTRANSFERASE 15 U/L (0-55); ALBUMIN 4.1 GM/DL (3.2-4.5); ALKALINE PHOSPHATASE 99 U/L (40-136); BILIRUBIN,TOTAL 0.3 MG/DL (0.1-1.0); BUN/CREATININE RATIO 12; CALCIUM 9.4 MG/DL (8.5-10.1); CARBON DIOXIDE 21 MMOL/L (21-32); CHLORIDE 104 MMOL/L (98-107); GFR ESTIMATED > 60; MAGNESIUM 1.9 MG/DL (1.8-2.4); POTASSIUM 3.8 MMOL/L (3.6-5.0); SODIUM 137 MMOL/L (135-145); TOTAL PROTEIN 7.2 GM/DL (6.4-8.2)
[2019-01-08 04:28] LABS: GLUCOSE 430 MG/DL (70-105)
[2019-01-08] MEDS ORDERED: inSUlin (REGULAR) HUMAN 1 UNIT/0.01 ML (CHARGE PER UNIT) SC ONE (04:30)
[2019-01-08] MEDS ORDERED: fentaNYL INJECTION 100 MCG/2 ML AMP IVP ONE (05:15)
--- NOTE | 2019-01-08 05:47 | ED Chest Pain ---
General Chief Complaint: Chest Pain Stated Complaint: CP,SOB,LEFT ARM PAIN Nursing Triage Note: AMBULATORY TO ED WITH C/O CHEST PRESSURE THAT OCCURRED ALL DAY YESTERDAY AND GOT WORSE THIS AM APPROX 0200. TAKES PLAVIX AND ELIQUIS BID AND HAS NOT MISSED DOSES, LAST ELIQUIS LAST NOCT AT 2200. HAS HAD COLD SWEATS, SOME SOA, AND PAIN RADIATING TO LEFT ARM. HX OF CARDIAC STENTS, AFIB, HTN, LOOP RECORDER. Nursing Sepsis Screen: No Definite Risk Source: patient, old records Exam Limitations: no limitations History of Present Illness Date Seen by Provider: Jan 08, 2019 Time Seen by Provider: 03:50 Initial Comments This 53-year-old gentleman presents to emergency room with chest pain that started yesterday. In intensified 02:00 this morning and he decided to come to the emergency room. He had cold sweats, shortness of air and radiation of pain to his left elbow and wrist. He has had numerous cardiac catheterizations in the past. He last had a cardiac angiography on December 18 when a stent was placed in the left circumflex. Patient has a known history of coronary artery disease. He reports good compliance with his medications. Allergies and Home Medications Allergies Coded Allergies: bee pollen (Unverified Allergy, Mild, 05/20/18) Home Medications Apixaban 5 Mg Tablet, 5 MG PO BID, (Reported) Aspirin 81 Mg Tab.chew, 81 MG PO DAILY Prescribed by: GERALD LEYVA on 12/18/18 0935 Atorvastatin Calcium 80 Mg Tablet, 80 MG PO HS, (Reported) Budesonide/Formoterol Fumarate 10.2 Gm Hfa.aer.ad, 2 PUFF IH BID, (Reported) Clopidogrel Bisulfate 75 Mg Tablet, 75 MG PO DAILY, (Reported) Insulin Glargine,Hum.rec.anlog 100 Unit/1 Ml Vial, 20 UNIT SQ HS, (Reported) Isosorbide Mononitrate 120 Mg Tab.er.24h, 120 MG PO DAILY, (Reported) Liraglutide 0.6 Mg/0.1 Ml Pen.injctr, 1.8 MG SQ DAILY, (Reported) Lisinopril 2.5 Mg Tablet, 2.5 MG PO DAILY, (Reported) Metformin HCl 1,000 Mg Tablet, 1,000 MG PO BID, (Reported) Metoprolol Succinate 50 Mg Tab.er.24h, 50 MG PO DAILY, (Reported) Omeprazole Magnesium 20 Mg Tablet.dr, 20 MG PO DAILY, (Reported) Patient Home Medication List Home Medication List Reviewed: Yes Review of Systems Review of Systems Constitutional: see HPI EENTM: No Symptoms Reported Respiratory: See HPI Cardiovascular: See HPI Gastrointestinal: No Symptoms Reported Genitourinary: No Symptoms Reported Musculoskeletal: no symptoms reported Skin: no symptoms reported Psychiatric/Neurological: No Symptoms Reported Endocrine: No Symptoms Reported Hematologic/Lymphatic: No Symptoms Reported Past Svrgddh-Puwvdd-Myelkd Hx Past Med/Social Hx: Reviewed and Corrections made Patient Social History Alcohol Use: Past History Number of Drinks Today: AA Alcohol Beverage of Choice: Beer Recreational Drug Use: No Smoking Status: Current Everyday Smoker Type Used: Cigarettes, Electronic/Vapor Former Smoker, Quit: Nov 25, 2018 Recent Foreign Travel: No Contact w/Someone Who Travel: No Recent Infectious Disease Expo: No Recent Hopitalizations: No Immunizations Up To Date Tetanus Booster (TDap): Unknown Date of Pneumonia Vaccine: Jul 18, 2018 Seasonal Allergies Seasonal Allergies: No Past Medical History Surgeries: Yes (LEFT SHOULDER X 1, RIGHT SHOULDER X2; RIGHT KNEE X2; CARDIOVERSION, STENTS, Loop recorder) Cardiac, Coronary Stent, Orthopedic, Tonsillectomy Respiratory: Yes COPD Cardiac: Yes Atrial Fibrillation, Coronary Artery Disease, High Cholesterol, Hypertension Neurological: No Reproductive Disorders: No Sexually Transmitted Disease: No HIV/AIDS: No Genitourinary: No Gastrointestinal: No Musculoskeletal: Yes ( FX HAND; SHOULDER AND KNEE SURGERIES) Fractures Endocrine: Yes Diabetes, Non-Insulin dep HEENT: No Cancer: No Psychosocial: No Integumentary: No Blood Disorders: No Family Medical History No Pertinent Family Hx Physical Exam Vital Signs Vital Signs - First Documented 01/08/19 01/08/19 03:50 03:54 Temp 98.0 Pulse 101 Resp 18 B/P (MAP) 142/89 (106) Pulse Ox 98 O2 Delivery Room Air Capillary Refill : Less Than 3 Seconds Height, Weight, BMI Height: 5'9.00" Weight: 210lbs. 0.0oz. 95.027800qx; 7.0 BMI Method:Stated General Appearance: No Apparent Distress, WD/WN HEENT: PERRL/EOMI, Normal ENT Inspection Neck: Normal Inspection Respiratory: Chest Non Tender, Lungs Clear, Normal Breath Sounds, No Accessory Muscle Use, No Respiratory Distress Cardiovascular: Regular Rate, Rhythm, No Edema, No JVD Gastrointestinal: Non Tender, Soft Extremity: Normal Inspection, Non Tender, No Pedal Edema Neurologic/Psychiatric: Alert, Oriented x3, No Motor/Sensory Deficits, Normal Mood/Affect, social and human services assistant II-XII Norm as Tested Skin: Normal Color, Warm/Dry Progress/Results/Core Measures Results/Orders Lab Results Laboratory Tests Test 01/08/19 03:53 Range/Units White Blood Count 11.3 H 4.3-11.0 10^3/uL Red Blood Count 5.29 4.35-5.85 10^6/uL Hemoglobin 14.6 13.3-17.7 G/DL Hematocrit 42 40-54 % Mean Corpuscular Volume 80 80-99 FL Mean Corpuscular Hemoglobin 28 25-34 PG Mean Corpuscular Hemoglobin Concent 35 32-36 G/DL Red Cell Distribution Width 14.8 H 10.0-14.5 % Platelet Count 297 130-400 10^3/uL Mean Platelet Volume 9.9 7.4-10.4 FL Neutrophils (%) (Auto) 69 42-75 % Lymphocytes (%) (Auto) 21 12-44 % Monocytes (%) (Auto) 8 0-12 % Eosinophils (%) (Auto) 2 0-10 % Basophils (%) (Auto) 0 0-10 % Neutrophils # (Auto) 7.8 1.8-7.8 X 10^3 Lymphocytes # (Auto) 2.4 1.0-4.0 X 10^3 Monocytes # (Auto) 0.9 0.0-1.0 X 10^3 Eosinophils # (Auto) 0.2 0.0-0.3 10^3/uL Basophils # (Auto) 0.0 0.0-0.1 10^3/uL Prothrombin Time 14.3 12.2-14.7 SEC INR Comment 1.1 0.8-1.4 Activated Partial Thromboplast Time 37 H 24-35 SEC D-Dimer 0.37 0.00-0.49 UG/ML Sodium Level 137 135-145 MMOL/L Potassium Level 3.8 3.6-5.0 MMOL/L Chloride Level 104 98-107 MMOL/L Carbon Dioxide Level 21 21-32 MMOL/L Anion Gap 12 5-14 MMOL/L Blood Urea Nitrogen 13 7-18 MG/DL Creatinine 1.10 0.60-1.30 MG/DL Estimat Glomerular Filtration Rate > 60 BUN/Creatinine Ratio 12 Glucose Level 430 *H 70-105 MG/DL Calcium Level 9.4 8.5-10.1 MG/DL Corrected Calcium 9.3 8.5-10.1 MG/DL Magnesium Level 1.9 1.8-2.4 MG/DL Total Bilirubin 0.3 0.1-1.0 MG/DL Aspartate Amino Transf (AST/SGOT) 11 5-34 U/L Alanine Aminotransferase (ALT/SGPT) 15 0-55 U/L Alkaline Phosphatase 99 40-136 U/L Myoglobin 20.8 10.0-92.0 NG/ML Troponin I < 0.028 <0.028 NG/ML Total Protein 7.2 6.4-8.2 GM/DL Albumin 4.1 3.2-4.5 GM/DL My Orders Orders - STEFFANIE PINTO MD Nitroglycerin 0.4 Mg Btl 25's (Nitrostat (01/08/19 03:56) Aspirin Chewable Tablet (Baby Aspirin Ch (01/08/19 03:56) Cbc With Automated Diff (01/08/19 04:01) Magnesium (01/08/19 04:01) Chest 1 View, Ap/Pa Only (01/08/19 04:01) Ekg Tracing (01/08/19 04:01) Cardiac Profile 1 (01/08/19 04:01) Comprehensive Metabolic Panel (01/08/19 04:01) Myoglobin Serum (01/08/19 04:01) Protime With Inr (01/08/19 04:01) Partial Thromboplastin Time (01/08/19 04:01) O2 (01/08/19 04:01) Monitor-Rhythm Ecg Trace Only (01/08/19 04:01) Lipid Panel (01/09/19 06:00) Saline Lock/Iv-Start (01/08/19 04:01) Nitroglycerin 0.4 Mg Btl 25's (Nitrostat (01/08/19 04:15) Aspirin Chewable Tablet (Baby Aspirin Ch (01/08/19 04:15) Fibrin Degradation Products (01/08/19 04:18) Insulin (Regular) Human (Humulin R (Per (01/08/19 04:30) Fentanyl Injection (Sublimaze Injection (01/08/19 05:15) Medications Given in ED Current Medications Medications Dose Ordered Sig/Juan Miguel Route Start Time Stop Time Status Last Admin Dose Admin Aspirin 81 mg STK-MED ONCE .ROUTE 01/08/19 03:56 01/08/19 03:58 DC 01/08/19 03:57 81 MG Fentanyl Citrate 50 mcg ONCE ONCE IVP 01/08/19 05:15 01/08/19 05:16 DC 01/08/19 05:37 50 MCG Insulin Human Regular 5 unit ONCE ONCE SC 01/08/19 04:30 01/08/19 04:31 DC 01/08/19 04:50 5 UNIT Nitroglycerin 0.4 mg STK-MED ONCE SL 01/08/19 03:56 01/08/19 03:58 DC 01/08/19 03:59 0.4 MG Vital Signs/I&O 01/08/19 01/08/19 03:50 03:54 Temp 98.0 Pulse 101 Resp 18 B/P (MAP) 142/89 (106) Pulse Ox 98 O2 Delivery Room Air Room Air Blood Pressure Mean: 106 Progress Progress Note : Progress Note Workup was unremarkable. D-dimer was negative. Troponin and EKG were unremarkable. Nitroglycerin and aspirin were administered. Patient had a reduction in pain from 7/10 down to 4/10 after nitroglycerin. Given patient's complex cardiac history and continued pain, admission was felt necessary. Case was discussed with Dr. Payne who help determine disposition. Fentanyl was given for residual pain. He was found to be hyperglycemic. Insulin 5 units was administered subcutaneously. Patient did not take his insulin tonight because he has not been eating much. There have not been able to afford much food. Initial ECG Impression Date: Jan 08, 2019 Initial ECG Impression Time: 03:48 Initial ECG Rate: 102 Initial ECG Rhythm: S.Tach Comment Sinus tachycardia with no ST elevation or depression. No abnormal intervals or axis deviation. Diagnostic Imaging Diagonstic Imaging: Xray Plain Films/CT/US/NM/MRI: chest Comments Chest x-ray viewed by me. Report not yet available. No acute abnormalities appreciated. Departure Communication (Admissions) Time/Spoke to Admitting Phy: 05:15 Dr. Santos Time/Spoke to Consulting Phy: 05:00 Dr. Payne Impression Primary Impression: Chest pain Qualified Codes: R07.9 - Chest pain, unspecified Additional Impressions: Coronary artery disease Qualified Codes: I25.10 - Atherosclerotic heart disease of [place] coronary artery without angina pectoris Paroxysmal atrial fibrillation Disposition: ADMITTED INPATIENT Condition: Improved Admissions Decision to Admit Reason: Admit from ER (General) Decision to Admit/Date: Jan 08, 2019 Time/Decision to Admit Time: 05:00 Departure-Patient Inst. Referrals: DUNIA SANTOS MD (PCP/Family) Primary Care Physician STEFFANIE PINTO MD Jan 08, 2019 05:47
--- NOTE | 2019-01-08 06:10 | NUR ---
SAMINA RIOS admitted to room 423-1, with an admitting diagnosis of chest pain/CAD, on 01/08/19 from ER via , accompanied by Melt Helper, FARSHAD Cee.SAMINA RIOS introduced to surroundings, call light, bed controls, phone, TV, temperature control, lights, meal times, smoking policy, visitor policy, side rail policy, bathrooms and showers. Patient Rights given to patient in the handbook. SAMINA RIOS verbalizes understanding that [facility] is not responsible for the loss or damage to any personal effects or valuables that are kept in the patients possession during their hospitalization.
--- NOTE | 2019-01-08 06:14 | Diagnostic Imaging Report ---
INDICATION: Chest pressure. Upright portable AP view of the chest is obtained with comparison made study of 12/16/2018. FINDINGS: Heart size and pulmonary vascularity are within normal limits, and the lungs are clear, bilaterally. IMPRESSION: Unremarkable chest. Dictated by: Dictated on workstation # [id number]
[2019-01-08] MEDS ORDERED: morphine INJ 4 MG/ML 1 ML (VIAL/SYRINGE) IV PRN (06:45)
[2019-01-08] MEDS ORDERED: CATHETER FLUSH 10 ML SYR IV PRN (06:45)
[2019-01-08] MEDS ORDERED: ASPIRIN E.C. 81 MG (ECOTRIN) TAB PO SCH (09:00)
--- NOTE | 2019-01-08 09:36 | Consultation-Cardiology ---
HPI-Cardiology Cardiology Consultation: Date of Consultation 01/08/19 Time Seen by a Provider: 09:40 Date of Admission 01-07-19 Attending Physician Sissy Kingsley MD Admitting Physician Sissy Kingsley MD Consulting Physician Génesis José MD HPI: Chief Complaint: Chest pain Mr. Rios is a 53 year old male who has been admitted to [facility] from the ED with c/ o CP. He reports he has had progressive chest pressure which started yesterday morning. He states it would improve with sublingual nitro, but never completely resolved. He reports around approx 2:00 this morning the discomfort became increasingly worse and he came to the ED. He continues to have some mild chest pressure, but feels it has improved since admission. No c/o palpitations, syncope or near syncope. No c/o LE swelling. Chronic mild to mod exertional dyspnea which is unchanged. Review of Systems-Cardiology Review of Systems Constitutional: No chills, No fever Eyes: No vision change Ears/Nose/Throat: No epistaxis, No recent hearing loss Respiratory: As described under HPI Cardiovascular: As described under HPI Gastrointestinal: No constipation, No diarrhea, No nausea, No vomiting Genitourinary: No dysuria Skin: No rash, No ulcerations Psychiatric/Neurological: No seizure, No focal weakness, No syncope Hematologic: No bleeding abnormalities BTY-Iyyhlk-Uvkcdw Hx Patient Social History Alcohol Use: Past History Recreational Drug Use: No Smoking Status: Current Everyday Smoker Type Used: Cigarettes, Electronic/Vapor Recent Foreign Travel: No Recent Infectious Disease Expo: No Hospitalization with Isolation: Denies Immunizations Up To Date Tetanus Booster (TDap): Unknown Date of Pneumonia Vaccine: Jul 18, 2018 Past Medical History PMH As described under Assessment. Family Medical History Family Medical History: He reports his father CAD. Family History: Cardiovascular disease 19 FATHER Diabetes mellitus 19 MOTHER FH: lung cancer G8 SISTER Myocardial infarction 19 FATHER Allergies and Home Medications Allergies Coded Allergies: bee pollen (Unverified Allergy, Mild, 05/20/18) Home Medications Amlodipine Besylate 2.5 Mg Tablet, 2.5 MG PO DAILY Prescribed by: GÉNESIS JOSÉ on 01/09/19 1345 Apixaban 5 Mg Tablet, 5 MG PO BID, (Reported) Atorvastatin Calcium 80 Mg Tablet, 80 MG PO HS, (Reported) Budesonide/Formoterol Fumarate 10.2 Gm Hfa.aer.ad, 2 PUFF IH BID, (Reported) Clopidogrel Bisulfate 75 Mg Tablet, 75 MG PO DAILY, (Reported) Insulin Glargine,Hum.rec.anlog 100 Unit/1 Ml Vial, 20 UNIT SQ HS, (Reported) Liraglutide 0.6 Mg/0.1 Ml Pen.injctr, 1.8 MG SQ DAILY, (Reported) Metformin HCl 1,000 Mg Tablet, 1,000 MG PO BID, (Reported) Metoprolol Succinate 50 Mg Tab.er.24h, 50 MG PO DAILY, (Reported) Nitroglycerin 1 Each Patch.td24, 1 EACH TD apply hs, remove qam Prescribed by: GÉNESIS OJSÉ on 01/09/19 1345 Omeprazole Magnesium 20 Mg Tablet.dr, 20 MG PO DAILY, (Reported) Patient Home Medication List Home Medication List Reviewed: Yes Physical Exam-Cardiology Physical Exam Vital Signs/I&O 01/10/19 00:00 Intake Total 960 ml Balance 960 ml Capillary Refill : Less Than 3 Seconds Constitutional: AAO x 3, well-developed, well-nourished HEENT: PERRL, hearing is well preserved Neck: No carotid bruit; carotid pulses are 2 + bilaterally Respiratory: No accessory muscle use, No respiratory distress; chest expansion is symmetric, chest is bilaterally symmetric, rhonchi (scattered), other ( prolonged expiratory phase) Cardiovascular: regular rate-rhythm; No JVD; S1 and S2 Gastrointestinal: No tender; soft, round, audible bowel sounds Rectal: deferred Extremities: no lower extremity edema bilateral Neurologic/Psychiatric: grossly intact, power is 5/5 both on sides Skin: No rash, No ulcerations Data Review Labs Laboratory Tests 01/09/19 12:14: Glucometer 244H Radiology NAME: SAMINA RIOS MED REC#: [id number] PT STATUS: ADM Eloisa : 1965 PHYSICIAN: STEFFANIE PINTO MD ADMIT DATE: 01/08/19 Signed Date of Exam: 01/08/19 CHEST 1 VIEW, AP/PA ONLY INDICATION: Chest pressure. Upright portable AP view of the chest is obtained with comparison made study of 12/16/2018. FINDINGS: Heart size and pulmonary vascularity are within normal limits, and the lungs are clear, bilaterally. IMPRESSION: Unremarkable chest. Dictated by: Dictated on workstation # [id number] Dict: 01/08/19611 Trans: 01/08/19822 Interpreted by: HENRIK MARX MD Electronically signed by: HENRIK MARX MD 01/08/19822 ECG Impression ECG Initial ECG Rhythm: S.Tach A/P-Cardiology Assessment/Admission Diagnosis Stable angina Coronary artery disease with history of multiple coronary interventions: Alpine Xience 2.25 x 28 mm on 04/30/2017 to distal right coronary (Dr. Payne), Alpine Xience 2.25 x 23 on 05/01/17to proximal left circumflex (Dr. Payne) and Alpine Xience 2.25 x 12 to proximal left circumflex on 05/22/2018 (Dr. Flowers ). Cardiac catheterization if 07-23-18 shows a 60% in-stent restenosis of left circumflex and 80 to 90% bifurcation stenosis of the distal right coronary to which percutaneous intervention was unsuccessful. Most recent cardiac cath of 12-17-18: CAD - consisting up to 90% proximal stenosis within the left circumflex, which was extending into the standard portion of the proximal left circumflex and to which successful stenting was carried out with Xience Citlalli 2.5 x 12 mm stent (12/17/2018). The patient is known to have overlapping proximal left circumflex artery stents (Alpine Xience 2.25 x 23 and Alpine Xience 2.25 x 12). Stenting of 12-17-18 slightly overlaps the proximal portion of this stented segment. The left anterior descending artery has approximately 50% mid vessel stenosis. The right coronary artery is dominant and has 50 to 60 % proximal stenosis, patent stented segment in the distal right coronary artery , but there is 70% stenosis in the distal posterolateral and the ostial and proximal posterior descending which arises from the stented segment. Mildly elevated left ventricular end-diastolic pressure. Well preserved global left ventricular systolic function with ejection fraction of approximately 50%. Posterobasal akinesis. L-sided dental abscess Palpitations: A Fl diagnosed on ILR on 05/31/18 OAC with Eliquis for stroke prophylaxis S/p ILR placement on 08/15/16 TSH normal on 08/03/16 Chronic REY, likely related to chronic tobacco use (probable COPD) and obesity ( BMI approx 35) Echo of 05/01/17 (Dr Payne): showed LVEF 55-65, no RWMA, mild MR, grade I diastolic dysfunction of LV DM II, managed by his fam phy Daytime tiredness and obesity are suggestive of sleep apnea syndrome. Further eval is advised, but he refuses Chronic tobacco use - cessation advised Carotid u/s of 08/28/16: mild bilat plaque AA screening scan: no AAA Obesity with BMI approx 33 Discussion and Recomendations Complex management issue Known CAD with several interventions in the past, most recently last month. Symptoms are consistent with stable angina. We are going to adjust his medication regimen. We will stop the long-acting nitrate and start short acting. We are going to continue BB and add calcium channel ramirez tx. We are going to stop the Lisinopril, last LVEF was greater than 60%. This will allow more room to augment his medication regimen We are going to continue OAC for stroke prophylaxis We are going to continue Plavix and ASA d/t CAD and symptoms of stable angina Continue statin Management of DM 2 as per medical services Monitor lab closely Further recs will be based on his hospital course We have again instructed immediate and complete smoking cessation We would like to thank medical services for this consult Clinical Quality Measures AMI/AHF: ASA po Prior to arrival: No DVT/VTE Risk/Contraindication: Risk Factor Score Per Nursin RFS Level Per Nursing on Admit: 4+=Very High GERALD LEYVA Jan 08, 2019 09:36
--- NOTE | 2019-01-08 09:38 | NUR ---
PATIENT STATES NOTHING HAS CHANGED WITH HIS MEDICATIONS SINCE HIS LAST VISIT. HE WAS ORDERED 14 DAYS OF ASPIRIN AT HIS LAST DISCHARGE BUT HE STATES THAT THERAPY IS COMPLETE AND HE IS NO LONGER TAKING IT. HE RECEIVES HIS MEDS THROUGH PALS, REPOSITORY, AND PATIENT ASSISTANCE THROUGH THE MAIL SO I AM UNABLE TO VERIFY THE LAST TIME THEY WERE FILLED HOWEVER HE STATES HE TAKES THEM ALL REGULARLY AND IS NOT OUT OF ANY OF THEM.
[2019-01-08] MEDS: APIXABAN 5 MG (ELIQUIS) TABLET PO SCH ×2 (09:43→21:40)
[2019-01-08] MEDS: CLOPIDOGREL 75 MG (PLAVIX) TABLET PO SCH (09:43)
[2019-01-08] MEDS ORDERED: NITROGLYCERIN 2% OINT 1 GM UNIT DOSE PACKET TOP NR (10:15)
[2019-01-08] MEDS ORDERED: amLODIPine 2.5MG (NORVASC) TAB PO NR (10:15)
--- NOTE | 2019-01-08 11:00 | Consultation-Cardiology ---
HPI-Cardiology Cardiology Consultation: Date of Consultation 01/08/19 Time Seen by a Provider: 09:40 Date of Admission Attending Physician Sissy Kingsley MD Admitting Physician Sissy Kingsley MD Consulting Physician DEANA MULLIGAN MD, MA, FACP, FACC, FSCAI, CCDS HPI: Chief Complaint: CC: Chest pain HPI: Mr. Carrizales is a 53 year old male who has been admitted to [facility] from the ED with c/ o CP. He reports he has had progressive chest pressure which started yesterday morning. He states it would improve with sublingual nitro, but never completely resolved. He reports around approx 2:00 this morning the discomfort became increasingly worse and he came to the ED. He continues to have some mild chest pressure, but feels it has improved since admission. No c/o palpitations, syncope or near syncope. No c/o LE swelling. Chronic mild to mod exertional dyspnea which is unchanged. Review of Systems-Cardiology Review of Systems Constitutional: No chills, No fever Eyes: No vision change Ears/Nose/Throat: No epistaxis, No recent hearing loss Respiratory: As described under HPI Cardiovascular: As described under HPI Gastrointestinal: No constipation, No diarrhea, No nausea, No vomiting Genitourinary: No dysuria Skin: No rash, No ulcerations Psychiatric/Neurological: No seizure, No focal weakness, No syncope Hematologic: No bleeding abnormalities LKB-Rbqvjb-Bdxpwh Hx Patient Social History Alcohol Use: Past History Recreational Drug Use: No Smoking Status: Current Everyday Smoker Type Used: Cigarettes, Electronic/Vapor Recent Foreign Travel: No Recent Infectious Disease Expo: No Hospitalization with Isolation: Denies Immunizations Up To Date Tetanus Booster (TDap): Unknown Date of Pneumonia Vaccine: Jul 18, 2018 Past Medical History PMH As described under Assessment. Family Medical History Family Medical History: He reports his father CAD. Family History: Cardiovascular disease 19 FATHER Diabetes mellitus 19 MOTHER FH: lung cancer G8 SISTER Myocardial infarction 19 FATHER Allergies and Home Medications Allergies Coded Allergies: bee pollen (Unverified Allergy, Mild, 05/20/18) Home Medications Apixaban 5 Mg Tablet, 5 MG PO BID, (Reported) Atorvastatin Calcium 80 Mg Tablet, 80 MG PO HS, (Reported) Budesonide/Formoterol Fumarate 10.2 Gm Hfa.aer.ad, 2 PUFF IH BID, (Reported) Clopidogrel Bisulfate 75 Mg Tablet, 75 MG PO DAILY, (Reported) Insulin Glargine,Hum.rec.anlog 100 Unit/1 Ml Vial, 20 UNIT SQ HS, (Reported) Isosorbide Mononitrate 120 Mg Tab.er.24h, 120 MG PO DAILY, (Reported) Liraglutide 0.6 Mg/0.1 Ml Pen.injctr, 1.8 MG SQ DAILY, (Reported) Lisinopril 2.5 Mg Tablet, 2.5 MG PO DAILY, (Reported) Metformin HCl 1,000 Mg Tablet, 1,000 MG PO BID, (Reported) Metoprolol Succinate 50 Mg Tab.er.24h, 50 MG PO DAILY, (Reported) Omeprazole Magnesium 20 Mg Tablet.dr, 20 MG PO DAILY, (Reported) Patient Home Medication List Home Medication List Reviewed: Yes Physical Exam-Cardiology Physical Exam Vital Signs/I&O 01/08/19 01/08/19 01/08/19 01/08/19 03:50 03:54 06:08 06:10 Temp 98.0 98.0 97.1 Pulse 101 98 94 Resp 18 18 20 B/P (MAP) 142/89 (106) 134/75 (94) 122/78 (93) Pulse Ox 98 98 94 O2 Delivery Room Air Room Air Room Air Room Air 01/08/19 01/08/19 01/08/19 01/08/19 06:10 06:10 06:30 06:45 Temp 97.1 Pulse 94 81 82 Resp 20 B/P (MAP) 122/78 105/65 (78) 105/70 (82) Pulse Ox 97 94 97 95 O2 Delivery Room Air Room Air Room Air Room Air 01/08/19 01/08/19 07:00 07:00 Pulse 77 81 B/P (MAP) 105/67 (80) Pulse Ox 97 O2 Delivery Room Air Capillary Refill : Less Than 3 Seconds Constitutional: AAO x 3, well-developed, well-nourished HEENT: PERRL, hearing is well preserved Neck: No carotid bruit; carotid pulses are 2 + bilaterally Respiratory: No accessory muscle use, No respiratory distress; chest expansion is symmetric, chest is bilaterally symmetric, rhonchi (scattered), other ( prolonged expiratory phase) Cardiovascular: regular rate-rhythm; No JVD; S1 and S2 Gastrointestinal: No tender; soft, round, audible bowel sounds Rectal: deferred Extremities: no lower extremity edema bilateral Neurologic/Psychiatric: grossly intact, power is 5/5 both on sides Skin: No rash, No ulcerations Data Review Labs Laboratory Tests 01/08/19 03:53: White Blood Count 11.3H, Red Blood Count 5.29, Hemoglobin 14.6, Hematocrit 42, Mean Corpuscular Volume 80, Mean Corpuscular Hemoglobin 28, Mean Corpuscular Hemoglobin Concent 35, Red Cell Distribution Width 14.8H, Platelet Count 297, Mean Platelet Volume 9.9, Neutrophils (%) (Auto) 69, Lymphocytes (%) (Auto) 21, Monocytes (%) (Auto) 8, Eosinophils (%) (Auto) 2, Basophils (%) (Auto) 0, Neutrophils # (Auto) 7.8, Lymphocytes # (Auto) 2.4, Monocytes # (Auto) 0.9, Eosinophils # (Auto) 0.2, Basophils # (Auto) 0.0, Prothrombin Time 14.3, INR Comment 1.1, Activated Partial Thromboplast Time 37H, D-Dimer 0.37, Sodium Level 137, Potassium Level 3.8, Chloride Level 104, Carbon Dioxide Level 21, Anion Gap 12, Blood Urea Nitrogen 13, Creatinine 1.10, Estimat Glomerular Filtration Rate > 60, BUN/Creatinine Ratio 12, Glucose Level 430*H, Calcium Level 9.4, Corrected Calcium 9.3, Magnesium Level 1.9, Total Bilirubin 0.3, Aspartate Amino Transf (AST/SGOT) 11, Alanine Aminotransferase (ALT/SGPT) 15, Alkaline Phosphatase 99, Myoglobin 20.8, Troponin I < 0.028, Total Protein 7.2, Albumin 4.1 01/08/19 05:54: Glucometer 334H 01/08/19 07:58: Troponin I 0.070H, Total Creatine Kinase 54 A/P-Cardiology Assessment/Admission Diagnosis Unstable angina and small NSTEMI Coronary artery disease with history of multiple coronary interventions: Alpine Xience 2.25 x 28 mm on 04/30/2017 to distal right coronary (Dr. Payne), Alpine Xience 2.25 x 23 on 05/01/17to proximal left circumflex (Dr. Payne) and Alpine Xience 2.25 x 12 to proximal left circumflex on 05/22/2018 (Dr. Flowers ). Cardiac catheterization if 07-23-18 shows a 60% in-stent restenosis of left circumflex and 80 to 90% bifurcation stenosis of the distal right coronary to which percutaneous intervention was unsuccessful. Most recent cardiac cath of 12-17-18: CAD - consisting up to 90% proximal stenosis within the left circumflex, which was extending into the standard portion of the proximal left circumflex and to which successful stenting was carried out with Xience Citlalli 2.5 x 12 mm stent (12/17/2018). The patient is known to have overlapping proximal left circumflex artery stents (Alpine Xience 2.25 x 23 and Alpine Xience 2.25 x 12). Stenting of 12-17-18 slightly overlaps the proximal portion of this stented segment. The left anterior descending artery has approximately 50% mid vessel stenosis. The right coronary artery is dominant and has 50 to 60 % proximal stenosis, patent stented segment in the distal right coronary artery , but there is 70% stenosis in the distal posterolateral and the ostial and proximal posterior descending which arises from the stented segment. Mildly elevated left ventricular end-diastolic pressure. Well preserved global left ventricular systolic function with ejection fraction of approximately 50%. Posterobasal akinesis. L-sided dental abscess Palpitations: A Fl diagnosed on ILR on 05/31/18 OAC with Eliquis for stroke prophylaxis S/p ILR placement on 08/15/16 TSH normal on 08/03/16 Chronic REY, likely related to chronic tobacco use (probable COPD) and obesity ( BMI approx 35) Echo of 05/01/17 (Dr Payne): showed LVEF 55-65, no RWMA, mild MR, grade I diastolic dysfunction of LV DM II, managed by his fam phy Daytime tiredness and obesity are suggestive of sleep apnea syndrome. Further eval is advised, but he refuses Chronic tobacco use - cessation advised Carotid u/s of 08/28/16: mild bilat plaque AA screening scan: no AAA Obesity with BMI approx 33 Discussion and Recomendations * Complex management issue * Has complex CAD to which multiple interventions have been undertaken. Has distal vessel disease to which previous attempts at PCI have not been successful. Plan is to optimize med therapy. If this proves inadequate, then consideration can be given to repeat cath * We will give triple therapy for angina. We will stop Imdur and initiate nitropaste. We are going to continue BB and add calcium channel ramirez tx. * We are going to stop the Lisinopril, last LVEF was greater than 60%. This will allow more room to augment his medication regimen * We are going to continue OAC for stroke prophylaxis * We are going to continue Plavix and ASA d/t CAD and symptoms of stable angina * Continue statin * Management of DM 2 as per medical services * Monitor lab closely * Further recs will be based on his hospital course * His compliance with treatment remains an issues. We have again instructed immediate and complete smoking cessation. We have advised close f/u with his pcp for better control of DM II Clinical Quality Measures AMI/AHF: ASA po Prior to arrival: No DVT/VTE Risk/Contraindication: Risk Factor Score Per Nursin RFS Level Per Nursing on Admit: 4+=Very High DEANA MULLIGAN MD FACP FACC CCDS Jan 08, 2019 11:00
[2019-01-08] MEDS ORDERED: inSUlin ASPART (NovoLOG) 1 UNIT/0.01 ML (CHARGE PER UNIT) SC SCH (12:00)
[2019-01-08] MEDS: NITROGLYCERIN 2% OINT 1 GM UNIT DOSE PACKET TOP SCH ×2 (13:13→21:40)
[2019-01-08] MEDS: CATHETER FLUSH 10 ML SYR IV SCH ×2 (15:19→21:41)
[2019-01-08] MEDS: inSUlin ASPART (NovoLOG) 1 UNIT/0.01 ML (CHARGE PER UNIT) SC SCH ×2 (16:46→21:41)
[2019-01-08] MEDS: metFORMIN 500 MG (GLUCOPHAGE) TAB PO SCH (16:47)
--- NOTE | 2019-01-08 17:30 | History & Physicial (CHS) ---
HPI History of Present Illness: 53 yo male with CAD with areas that have not been amenable to intervention came to hospital with worsening chest pain from his baseline. Today his pain is better, but persistent at low level. He states his blood sugar is high because they have not had money for much food, so he isn't eating a lot and therefore not using much insulin. Date seen by provider: Jan 08, 2019 Time Seen by Provider: 10:50 Attending Physician Dunia Santos MD PCP Dunia Santos MD Consult Date of Admission Jan 08, 2019 at 05:20 Home Medications Home Medications Reviewed patient Home Medication Reconciliation performed by pharmacy medication reconciliations mix technician and/or nursing. Patients Allergies have been reviewed. Allergies Coded Allergies: bee pollen (Unverified Allergy, Mild, 05/20/18) CZA-Himogc-Cbqizc Hx Patient Social History Alcohol Use: Past History Recreational Drug Use: No Smoking Status: Current Everyday Smoker Type Used: Cigarettes, Electronic/Vapor Recent Foreign Travel: No Contact w/other who traveled: No Recent Hopitalizations: No Recent Infectious Disease Expo: No Immunizations Up To Date Tetanus Booster (TDap): Unknown Date of Pneumonia Vaccine: Jul 18, 2018 Past Medical History PMHx: DMII HTN HLD COPD GERD Paroxysmal atrial fibrillation CAD Vitamin D deficiency Nephrolithiasis SurgHx: Right knee replacement Shoulder arthroscopy Tonsillectomy and adenoidectomy Family Medical History Significant Family History: No Pertinent Family Hx Family History: Cardiovascular disease 19 FATHER Diabetes mellitus 19 MOTHER FH: lung cancer G8 SISTER Myocardial infarction 19 FATHER Review of Systems (CHC) Constitutional: No fever EENTM: no symptoms reported Respiratory: no symptoms reported Cardiovascular: see HPI Gastrointestinal: no symptoms reported Genitourinary: no symptoms reported Musculoskeletal: no symptoms reported Skin: no symptoms reported Psychiatric/Neurological: No Symptoms Reported Reviewed Test Results Reviewed Test Results Lab Laboratory Tests Test 01/08/19 03:53 01/08/19 05:54 01/08/19 07:58 01/08/19 11:31 Range/Units White Blood Count 11.3 H 4.3-11.0 10^3/uL Red Blood Count 5.29 4.35-5.85 10^6/uL Hemoglobin 14.6 13.3-17.7 G/DL Hematocrit 42 40-54 % Mean Corpuscular Volume 80 80-99 FL Mean Corpuscular Hemoglobin 28 25-34 PG Mean Corpuscular Hemoglobin Concent 35 32-36 G/DL Red Cell Distribution Width 14.8 H 10.0-14.5 % Platelet Count 297 130-400 10^3/uL Mean Platelet Volume 9.9 7.4-10.4 FL Neutrophils (%) (Auto) 69 42-75 % Lymphocytes (%) (Auto) 21 12-44 % Monocytes (%) (Auto) 8 0-12 % Eosinophils (%) (Auto) 2 0-10 % Basophils (%) (Auto) 0 0-10 % Neutrophils # (Auto) 7.8 1.8-7.8 X 10^3 Lymphocytes # (Auto) 2.4 1.0-4.0 X 10^3 Monocytes # (Auto) 0.9 0.0-1.0 X 10^3 Eosinophils # (Auto) 0.2 0.0-0.3 10^3/uL Basophils # (Auto) 0.0 0.0-0.1 10^3/uL Prothrombin Time 14.3 12.2-14.7 SEC INR Comment 1.1 0.8-1.4 Activated Partial Thromboplast Time 37 H 24-35 SEC D-Dimer 0.37 0.00-0.49 UG/ML Sodium Level 137 135-145 MMOL/L Potassium Level 3.8 3.6-5.0 MMOL/L Chloride Level 104 98-107 MMOL/L Carbon Dioxide Level 21 21-32 MMOL/L Anion Gap 12 5-14 MMOL/L Blood Urea Nitrogen 13 7-18 MG/DL Creatinine 1.10 0.60-1.30 MG/DL Estimat Glomerular Filtration Rate > 60 BUN/Creatinine Ratio 12 Glucose Level 430 *H 70-105 MG/DL Calcium Level 9.4 8.5-10.1 MG/DL Corrected Calcium 9.3 8.5-10.1 MG/DL Magnesium Level 1.9 1.8-2.4 MG/DL Total Bilirubin 0.3 0.1-1.0 MG/DL Aspartate Amino Transf (AST/SGOT) 11 5-34 U/L Alanine Aminotransferase (ALT/SGPT) 15 0-55 U/L Alkaline Phosphatase 99 40-136 U/L Myoglobin 20.8 10.0-92.0 NG/ML Troponin I < 0.028 0.070 H <0.028 NG/ML Total Protein 7.2 6.4-8.2 GM/DL Albumin 4.1 3.2-4.5 GM/DL Glucometer 334 H 244 H 70-110 MG/DL Total Creatine Kinase 54 30-200 U/L Test 01/08/19 15:47 Range/Units Glucometer 191 H 70-110 MG/DL Radiology NAME: SAMINA RIOS MED REC#: [id number] PT STATUS: ADM Eloisa : 1965 PHYSICIAN: STEFFANIE PINTO MD ADMIT DATE: 01/08/19 Signed Date of Exam: 01/08/19 CHEST 1 VIEW, AP/PA ONLY INDICATION: Chest pressure. Upright portable AP view of the chest is obtained with comparison made study of 12/16/2018. FINDINGS: Heart size and pulmonary vascularity are within normal limits, and the lungs are clear, bilaterally. IMPRESSION: Unremarkable chest. Dictated by: Dictated on workstation # [id number] Dict: 01/08/1912 Trans: 01/08/19 0823 Interpreted by: HENRIK MARX MD Electronically signed by: HENRIK MARX MD 01/08/19 0823 Physical Exam-(CHC) Physical Exam Vital Signs VS - Last 72 Hours, by Label 01/08/19 01/08/19 01/08/19 01/08/19 03:50 03:54 06:08 06:10 Temp 98.0 98.0 97.1 Pulse 101 98 94 Resp 18 18 20 B/P (MAP) 142/89 (106) 134/75 (94) 122/78 (93) Pulse Ox 98 98 94 O2 Delivery Room Air Room Air Room Air Room Air 01/08/19 01/08/19 01/08/19 01/08/19 06:10 06:10 06:30 06:45 Temp 97.1 Pulse 94 81 82 Resp 20 B/P (MAP) 122/78 105/65 (78) 105/70 (82) Pulse Ox 97 94 97 95 O2 Delivery Room Air Room Air Room Air Room Air 01/08/19 01/08/19 01/08/19 01/08/19 07:00 07:00 07:50 12:42 Temp 98.2 Pulse 77 81 80 Resp 18 B/P (MAP) 105/67 (80) 118/75 (89) Pulse Ox 97 98 O2 Delivery Room Air Room Air Room Air 01/08/19 01/08/19 12:54 16:00 Temp 97.6 Pulse 101 79 Resp 18 B/P (MAP) 110/72 (85) Pulse Ox 97 O2 Delivery Room Air Capillary Refill : Less Than 3 Seconds General Appearance: no apparent distress Respiratory: no respiratory distress, wheezing Cardiovascular: regular rate, rhythm, no murmur Gastrointestinal: normal bowel sounds, non tender, soft Extremities: no pedal edema Neurologic/Psychiatric: alert, normal mood/affect Skin: warm/dry Assessment/Plan Assessment/Plan Admission Status: Observation (1) Coronary artery disease Status: Chronic Assessment & Plan: Cardiology consulted, patient with recent cath with blockage not amenable to intervention. Qualifiers: Qualified Codes: I25.10 - Atherosclerotic heart disease of nik[place]ki coronary artery without angina pectoris (2) Chest pain Status: Acute Assessment & Plan: No ST elevation. Cardiology consulted, appreciate recommendations. Adjusting regimen to try to manage angina. Qualifiers: Qualified Codes: R07.9 - Chest pain, unspecified (3) DVT prophylaxis Status: Acute Assessment & Plan: On eliquis due to a fib. Clinical Quality Measures AMI/AHF: ASA po Prior to arrival: No DVT/VTE Risk/Contraindication: Risk Factor Score Per Nursin RFS Level Per Nursing on Admit: 4+=Very High DUNIA SANTOS MD Jan 08, 2019 17:30
[2019-01-08] MEDS ORDERED: RT-ADVAIR HFA 115/21 MCG PER PUFF IH SCH (20:00)
[2019-01-08] MEDS ORDERED: NON-FORMULARY MEDICATION 1 EA EA (Metformin HCl 1,000 MG) PO SCH (21:00)
[2019-01-08] MEDS ORDERED: NON-FORMULARY MEDICATION 1 EA EA (Budesonide/Formoterol Fumarate (Symbicort 160-4.5 Mcg In IH SCH (21:00)
[2019-01-08] MEDS ORDERED: APIXABAN 5 MG (ELIQUIS) TABLET PO SCH (21:00)
[2019-01-08] MEDS ORDERED: NON-FORMULARY MEDICATION 1 EA EA (Insulin Glargine,Hum.rec.anlog (Lantus) 20 UNIT) SQ SCH (21:00)
[2019-01-08] MEDS ORDERED: NON-FORMULARY MEDICATION 1 EA EA (Atorvastatin Calcium (Lipitor) 80 MG) PO SCH (21:00)
[2019-01-08] MEDS ORDERED: ATORVASTATIN 80 MG (LIPITOR) TABLET PO SCH (21:00)
[2019-01-09 04:00] VITALS: BP_SYST 109; BP_SYST 162; BP_DIAS 64; BP_DIAS 91
[2019-01-09] MEDS: inSUlin ASPART (NovoLOG) 1 UNIT/0.01 ML (CHARGE PER UNIT) SC SCH ×2 (05:27→12:27)
[2019-01-09] MEDS: CATHETER FLUSH 10 ML SYR IV SCH (05:27)
[2019-01-09 06:17] LABS: HEMOGLOBIN 14.4 G/DL (13.3-17.7); MEAN PLATELET VOLUME 10.1 FL (7.4-10.4); RED CELL DISTRIBUTION WIDTH 14.6 % (10.0-14.5)
[2019-01-09 06:42] LABS: ALANINE AMINOTRANSFERASE 17 U/L (0-55); ALKALINE PHOSPHATASE 90 U/L (40-136); BILIRUBIN,TOTAL 0.4 MG/DL (0.1-1.0); BUN/CREATININE RATIO 14; CALCIUM 9.4 MG/DL (8.5-10.1); CARBON DIOXIDE 20 MMOL/L (21-32); CHLORIDE 106 MMOL/L (98-107); CHOLESTEROL 211 MG/DL (< 200); CREATININE SERUM 0.77 MG/DL (0.60-1.30); GFR ESTIMATED > 60; GLUCOSE 156 MG/DL (70-105); HDL CHOLESTEROL 30 MG/DL (40-60); MAGNESIUM 1.8 MG/DL (1.8-2.4); POTASSIUM 3.7 MMOL/L (3.6-5.0); SODIUM 137 MMOL/L (135-145); TRIGLYCERIDES 427 MG/DL (<150); VLDL CHOLESTEROL 85 MG/DL (5-40)
[2019-01-09] MEDS: metFORMIN 500 MG (GLUCOPHAGE) TAB PO SCH (06:49)
[2019-01-09 08:21] VITALS: BP 112/67
[2019-01-09] MEDS ORDERED: ASPIRIN 81 MG CHEW (CHILDREN'S ASA) PO SCH (09:00)
[2019-01-09] MEDS ORDERED: NON-FORMULARY MEDICATION 1 EA EA (Omeprazole Magnesium (Prilosec Otc) 20 MG) PO SCH (09:00)
[2019-01-09] MEDS ORDERED: amLODIPine 2.5MG (NORVASC) TAB PO SCH (09:00)
[2019-01-09] MEDS ORDERED: PANTOPRAZOLE 20 MG TABLET (PROTONIX) PO SCH (09:00)
[2019-01-09] MEDS ORDERED: CLOPIDOGREL 75 MG (PLAVIX) TABLET PO SCH (09:00)
[2019-01-09] MEDS ORDERED: meTOproloL SUCCINATE 50 MG (TOPROL XL) TAB PO SCH (09:00)
[2019-01-09] MEDS ORDERED: NON-FORMULARY MEDICATION 1 EA EA (Liraglutide (Victoza 3-Pak) 1.8 MG) SQ SCH (09:00)
[2019-01-09] MEDS: APIXABAN 5 MG (ELIQUIS) TABLET PO SCH (09:23)
[2019-01-09] MEDS: NITROGLYCERIN 2% OINT 1 GM UNIT DOSE PACKET TOP SCH ×2 (09:24→13:22)
[2019-01-09] MEDS: CLOPIDOGREL 75 MG (PLAVIX) TABLET PO SCH (09:24)
[2019-01-09 11:50] VITALS: BP 119/70
[2019-01-09] MEDS ORDERED: AMLO2.5T4 PO (13:45)
[2019-01-09] MEDS ORDERED: NITR1PAT83 TD (13:45)
--- NOTE | 2019-01-09 13:49 | Progress Note-Cardiology ---
Cardiology SOAP Progress Note Subjective: Feels well today Has not any chest discomfort since adjustment of treatment Wishes to go home Promises to quit smoking Objective: I&O/Vital Signs 01/09/19 01/09/19 01/09/19 01/09/19 04:00 07:10 08:21 11:50 Temp 97.8 98.2 97.8 Pulse 76 75 75 74 Resp 18 18 18 B/P (MAP) 109/64 (79) 112/67 (82) 119/70 (86) Pulse Ox 95 94 97 O2 Delivery Room Air Room Air Room Air 01/09/19 12:46 Pulse 73 01/08/19 23:59 Intake Total 1770 ml Output Total 450 ml Balance 1320 ml Weight (Pounds): 209 Weight (Ounces): 3.2 Weight (Calculated Kilograms): 94.079879 Constitutional: AAO x 3, well-developed, well-nourished Respiratory: No accessory muscle use, No respiratory distress; chest expansion is symmetric, chest is bilaterally symmetric, rhonchi (scattered), other ( prolonged expiratory phase) Cardiovascular: regular rate-rhythm; No JVD; S1 and S2 Gastrointestional: No tender; soft, round, audible bowel sounds Extremities: no lower extremity edema bilateral Neurologic/Psychiatric: grossly intact, power is 5/5 both on sides Skin: No rash, No ulcerations Results/Procedures: Labs Laboratory Tests 01/08/19 15:47: Glucometer 191H 01/08/19 21:08: Glucometer 204H 01/09/19 05:23: Glucometer 155H 01/09/19 05:35: White Blood Count 9.0, Red Blood Count 5.34, Hemoglobin 14.4, Hematocrit 43, Mean Corpuscular Volume 80, Mean Corpuscular Hemoglobin 27, Mean Corpuscular Hemoglobin Concent 34, Red Cell Distribution Width 14.6H, Platelet Count 271, Mean Platelet Volume 10.1, Sodium Level 137, Potassium Level 3.7, Chloride Level 106, Carbon Dioxide Level 20L, Anion Gap 11, Blood Urea Nitrogen 11, Creatinine 0.77, Estimat Glomerular Filtration Rate > 60, BUN/Creatinine Ratio 14, Glucose Level 156H, Calcium Level 9.4, Corrected Calcium 9.4, Magnesium Level 1.8, Total Bilirubin 0.4, Aspartate Amino Transf (AST/SGOT) 14, Alanine Aminotransferase (ALT/SGPT) 17, Alkaline Phosphatase 90, Total Protein 7.0, Albumin 4.0, Triglycerides Level 427H, Cholesterol Level 211H, LDL Cholesterol Direct 102, VLDL Cholesterol 85H, HDL Cholesterol 30L 01/09/19 12:14: Glucometer 244H Laboratory Tests 01/08/19 03:53 01/09/19 05:35 A/P: Assessment: Unstable angina and small NSTEMI. Symptoms now stable after adjustment of meds Coronary artery disease with history of multiple coronary interventions: Alpine Xience 2.25 x 28 mm on 04/30/2017 to distal right coronary (Dr. Payne), Alpine Xience 2.25 x 23 on 05/01/17to proximal left circumflex (Dr. Payne) and Alpine Xience 2.25 x 12 to proximal left circumflex on 05/22/2018 (Dr. Flowers ). Cardiac catheterization if 07-23-18 shows a 60% in-stent restenosis of left circumflex and 80 to 90% bifurcation stenosis of the distal right coronary to which percutaneous intervention was unsuccessful. Most recent cardiac cath of 12-17-18: CAD - consisting up to 90% proximal stenosis within the left circumflex, which was extending into the standard portion of the proximal left circumflex and to which successful stenting was carried out with Xience Citlalli 2.5 x 12 mm stent (12/17/2018). The patient is known to have overlapping proximal left circumflex artery stents (Alpine Xience 2.25 x 23 and Alpine Xience 2.25 x 12). Stenting of 12-17-18 slightly overlaps the proximal portion of this stented segment. The left anterior descending artery has approximately 50% mid vessel stenosis. The right coronary artery is dominant and has 50 to 60 % proximal stenosis, patent stented segment in the distal right coronary artery , but there is 70% stenosis in the distal posterolateral and the ostial and proximal posterior descending which arises from the stented segment. Mildly elevated left ventricular end-diastolic pressure. Well preserved global left ventricular systolic function with ejection fraction of approximately 50%. Posterobasal akinesis. L-sided dental abscess Palpitations: A Fl diagnosed on ILR on 05/31/18 OAC with Eliquis for stroke prophylaxis S/p ILR placement on 08/15/16 TSH normal on 08/03/16 Chronic REY, likely related to chronic tobacco use (probable COPD) and obesity ( BMI approx 35) Echo of 05/01/17 (Dr Payne): showed LVEF 55-65, no RWMA, mild MR, grade I diastolic dysfunction of LV DM II, managed by his fam phy Daytime tiredness and obesity are suggestive of sleep apnea syndrome. Further eval is advised, but he refuses Chronic tobacco use - cessation advised Carotid u/s of 08/28/16: mild bilat plaque AA screening scan: no AAA Obesity with BMI approx 33 Plan: * Complex management issue * Has complex CAD to which multiple interventions have been undertaken. Has distal RCA/PDA disease to which previous attempts at PCI have not been successful. Plan is to optimize med therapy. * No angina after adjustment of therapy. He wishes to go home * We have advised compliance with meds, complete avoidance of any tobacco use, and close clinical f/u * Management of DM 2 as per medical services Clinical Quality Measures AMI/AHF: ASA po Prior to arrival: DEANA Li MD FACP FACC CCDS Jan 09, 2019 13:49
--- NOTE | 2019-01-09 13:50 | Discharge Inst-Cardiology ---
Discharge Inst-Cardiac Discharge Medications New Medications: Nitroglycerin (Nitro-Dur 0.4 MG/HR) 1 Each Patch.td24 1 EACH TD apply hs, remove qam for 30 Days, #30 PATCH 5 Refills Amlodipine Besylate (Amlodipine Besylate) 2.5 Mg Tablet 2.5 MG PO DAILY for 30 Days, #30 TAB 5 Refills Continued Medications: Apixaban (Eliquis) 5 Mg Tablet 5 MG PO BID, TAB Atorvastatin Calcium (Lipitor) 80 Mg Tablet 80 MG PO HS, TAB Budesonide/Formoterol Fumarate (Symbicort 160-4.5 Mcg Inhaler) 10.2 Gm Hfa.aer.ad 2 PUFF IH BID, INHALER Clopidogrel Bisulfate (Plavix) 75 Mg Tablet 75 MG PO DAILY, TAB Insulin Glargine,Hum.rec.anlog (Lantus) 100 Unit/1 Ml Vial 20 UNIT SQ HS, VIAL Liraglutide (Victoza 3-Paresh) 0.6 Mg/0.1 Ml Pen.injctr 1.8 MG SQ DAILY, VIAL Metformin HCl (Metformin HCl) 1,000 Mg Tablet 1000 MG PO BID, TAB Metoprolol Succinate (Metoprolol Succinate) 50 Mg Tab.er.24h 50 MG PO DAILY, TAB Omeprazole Magnesium (Prilosec Otc) 20 Mg Tablet.dr 20 MG PO DAILY, TAB Discontinued Medications: Isosorbide Mononitrate (Isosorbide Mononitrate ER) 120 Mg Tab.er.24h 120 MG PO DAILY, TAB Lisinopril (Lisinopril) 2.5 Mg Tablet 2.5 MG PO DAILY, TAB DEANA MULLIGAN MD [facility] CCDS Jan 09, 2019 13:50
--- NOTE | 2019-01-09 14:17 | Discharge Instructions ---
Discharge Inst-[facility] Discharge Medications New, Converted or Re-Newed RX: Other New Medications: Nitroglycerin (Nitro-Dur 0.4 MG/HR) 1 Each Patch.td24 1 EACH TD apply hs, remove qam for 30 Days, #30 PATCH 5 Refills Amlodipine Besylate (Amlodipine Besylate) 2.5 Mg Tablet 2.5 MG PO DAILY for 30 Days, #30 TAB 5 Refills Continued Medications: Apixaban (Eliquis) 5 Mg Tablet 5 MG PO BID, TAB Atorvastatin Calcium (Lipitor) 80 Mg Tablet 80 MG PO HS, TAB Budesonide/Formoterol Fumarate (Symbicort 160-4.5 Mcg Inhaler) 10.2 Gm Hfa.aer.ad 2 PUFF IH BID, INHALER Clopidogrel Bisulfate (Plavix) 75 Mg Tablet 75 MG PO DAILY, TAB Insulin Glargine,Hum.rec.anlog (Lantus) 100 Unit/1 Ml Vial 20 UNIT SQ HS, VIAL Liraglutide (Victoza 3-Paresh) 0.6 Mg/0.1 Ml Pen.injctr 1.8 MG SQ DAILY, VIAL Metformin HCl (Metformin HCl) 1,000 Mg Tablet 1000 MG PO BID, TAB Metoprolol Succinate (Metoprolol Succinate) 50 Mg Tab.er.24h 50 MG PO DAILY, TAB Omeprazole Magnesium (Prilosec Otc) 20 Mg Tablet.dr 20 MG PO DAILY, TAB Discontinued Medications: Isosorbide Mononitrate (Isosorbide Mononitrate ER) 120 Mg Tab.er.24h 120 MG PO DAILY, TAB Lisinopril (Lisinopril) 2.5 Mg Tablet 2.5 MG PO DAILY, TAB Patient Instructions Goal/Follow Up Appt: Follow up with Dr. Kingsley on 01/31 at 1 pm. Follow up with Dr. José as directed. 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 Return to [facility] For: Fever, worsening chest pain, shortness of breath Activity & Diet Discharge Diet: ADA Diet Activity as Tolerated: Yes Copy Copies To 1: DUNIA KINGSLEY MD, BETHANY N MD Jan 09, 2019 11:09
--- NOTE | 2019-01-09 14:22 | Discharge Summary ---
Diagnosis/Chief Complaint Date of Admission Jan 08, 2019 at 05:20 Date of Discharge January 09, 2019 Admission Diagnosis Admission Diagnosis Unstable angina Discharge Diagnosis See below Problems/Diagnosis: (1) Coronary artery disease Assessment & Plan: Cardiology consulted, patient with recent cath with blockage not amenable to intervention. 4/5 medication regimen adjusted to control angina, see discharge med list. Qualifiers: Qualified Codes: I25.10 - Atherosclerotic heart disease of [place] coronary artery without angina pectoris Status: Chronic (2) Chest pain Assessment & Plan: No ST elevation. Cardiology consulted, appreciate recommendations. Adjusting regimen to try to manage angina. Qualifiers: Qualified Codes: R07.9 - Chest pain, unspecified Status: Acute Chief Complaint/HPI Chief Complaint/HPI 53 yo male with CAD with areas that have not been amenable to intervention came to hospital with worsening chest pain from his baseline. Today his pain is better, but persistent at low level. He states his blood sugar is high because they have not had money for much food, so he isn't eating a lot and therefore not using much insulin. Discharge Summary-Simple/Stand Consultations Discharge Physical Examination Allergies: Coded Allergies: bee pollen (Unverified Allergy, Mild, 05/20/18) Vitals & I&Os Vital Sign - Last 12Hours Date Time Temp Pulse Resp B/P (MAP) Pulse Ox O2 Delivery O2 Flow Rate FiO2 01/09/19 12:46 73 01/09/19 11:50 97.8 18 119/70 (86) 97 Room Air Intake and Output 01/09/19 00:00 Intake Total 1770 ml Output Total 450 ml Balance 1320 ml General Appearance: Alert, No Acute Distress Respiratory: Clear to Auscultation, Normal Air Movement Cardiovascular: Regular Rate, No Murmurs Psych/Mental Status: Mental Status NL Hospital Course See final discharge diagnosis. Labs Laboratory Tests Test 01/08/19 15:47 01/08/19 21:08 01/09/19 05:23 01/09/19 05:35 Range/Units Glucometer 191 H 204 H 155 H 70-110 MG/DL White Blood Count 9.0 4.3-11.0 10^3/uL Red Blood Count 5.34 4.35-5.85 10^6/uL Hemoglobin 14.4 13.3-17.7 G/DL Hematocrit 43 40-54 % Mean Corpuscular Volume 80 80-99 FL Mean Corpuscular Hemoglobin 27 25-34 PG Mean Corpuscular Hemoglobin Concent 34 32-36 G/DL Red Cell Distribution Width 14.6 H 10.0-14.5 % Platelet Count 271 130-400 10^3/uL Mean Platelet Volume 10.1 7.4-10.4 FL Sodium Level 137 135-145 MMOL/L Potassium Level 3.7 3.6-5.0 MMOL/L Chloride Level 106 98-107 MMOL/L Carbon Dioxide Level 20 L 21-32 MMOL/L Anion Gap 11 5-14 MMOL/L Blood Urea Nitrogen 11 7-18 MG/DL Creatinine 0.77 0.60-1.30 MG/DL Estimat Glomerular Filtration Rate > 60 BUN/Creatinine Ratio 14 Glucose Level 156 H 70-105 MG/DL Calcium Level 9.4 8.5-10.1 MG/DL Corrected Calcium 9.4 8.5-10.1 MG/DL Magnesium Level 1.8 1.8-2.4 MG/DL Total Bilirubin 0.4 0.1-1.0 MG/DL Aspartate Amino Transf (AST/SGOT) 14 5-34 U/L Alanine Aminotransferase (ALT/SGPT) 17 0-55 U/L Alkaline Phosphatase 90 40-136 U/L Total Protein 7.0 6.4-8.2 GM/DL Albumin 4.0 3.2-4.5 GM/DL Triglycerides Level 427 H <150 MG/DL Cholesterol Level 211 H < 200 MG/DL LDL Cholesterol Direct 102 1-129 MG/DL VLDL Cholesterol 85 H 5-40 MG/DL HDL Cholesterol 30 L 40-60 MG/DL Test 01/09/19 12:14 Range/Units Glucometer 244 H 70-110 MG/DL Radiology Reviewed NAME: SAMINA RIOS [facility] REC#: [id number] PT STATUS: ADM Eloisa : 1965 PHYSICIAN: STEFFANIE PINTO MD ADMIT DATE: 01/08/19 Signed Date of Exam: 01/08/19 CHEST 1 VIEW, AP/PA ONLY INDICATION: Chest pressure. Upright portable AP view of the chest is obtained with comparison made study of 12/16/2018. FINDINGS: Heart size and pulmonary vascularity are within normal limits, and the lungs are clear, bilaterally. IMPRESSION: Unremarkable chest. Dictated by: Dictated on workstation # [id number] Dict: 01/08/19611 Trans: 01/08/19822 Interpreted by: HENRIK MARX MD Electronically signed by: HENRIK MARX MD 01/08/19822 Discharge Instructions to patient/family Please see electronic discharge instructions given to patient. Discharge Medications Reviewed and agree with Discharge Medication list on patient's Discharge Instruction sheet Clinical Quality Measures AMI/AHF: ASA po Prior to arrival: No DVT/VTE Risk/Contraindication: Risk Factor Score Per Nursin RFS Level Per Nursing on Admit: 4+=Very High Copy Copies To 1: DUNIA SANTOS MD, BETHANY N MD Jan 09, 2019 14:22
[2019-01-09 14:49] VITALS: BP 119/70
== END 2019-01-09 14:52 | disposition home or self-care (01) ==
LOC: EDUNIT# 03:44 → ER 03:46 → 4TH 05:20
PROVIDERS: ADMIT Family Medicine; ATTEND Family Medicine
DX: I25.110 Atherosclerotic heart disease of native coronary artery with unstable angina pectoris (principal); I21.4 Non-ST elevation (NSTEMI) myocardial infarction; K04.7 Periapical abscess without sinus; R06.09 Other forms of dyspnea; E66.9 Obesity, unspecified; E11.9 Type 2 diabetes mellitus without complications; I48.0 Paroxysmal atrial fibrillation; I65.23 Occlusion and stenosis of bilateral carotid arteries; Z68.33 Body mass index [BMI] 33.0-33.9, adult; F17.290 Nicotine dependence, other tobacco product, uncomplicated; E78.5 Hyperlipidemia, unspecified; J44.9 Chronic obstructive pulmonary disease, unspecified; E55.9 Vitamin D deficiency, unspecified; F17.210 Nicotine dependence, cigarettes, uncomplicated; Z95.5 Presence of coronary angioplasty implant and graft; Z87.442 Personal history of urinary calculi; Z96.651 Presence of right artificial knee joint; Z79.01 Long term (current) use of anticoagulants; Z79.4 Long term (current) use of insulin; Z79.82 Long term (current) use of aspirin; Z79.899 Other long term (current) drug therapy
CPT/HCPCS: 36415; 71045; 80053; 80061; 82550; 82962; 83735; 83874; 84484; 85025; 85027; 85379; 85610; 85730; 93005; 93041; 96374

== ENCOUNTER 2019-09-02 07:21 | Day surgery (SDC) | payer MEDICAID ==
[~2019-09-02] VITALS: Ht 175.3 cm; Wt 95.5 kg
[2019-09-02] VITALS (10 sets, daily range): BP systolic 109–158; BP diastolic 62–98
[~2019-09-02 07:21] MED LIST changes: +AMLO2.5T4 PO; +NITR1PAT83 TD
[2019-09-02] MEDS ORDERED: HEParin (CATH LAB) 2,000 ML IV ONE (07:24)
[2019-09-02] MEDS ORDERED: LIDOCAINE 1% INJ 20 ML 20 ML VIAL ONE ×2 (07:24→09:08)
[2019-09-02] MEDS ORDERED: NS IV 1000 ML 1,000 ML ONE ×2 (07:24→10:12)
[2019-09-02] MEDS ORDERED: NS IV 1000 ML 1,000 ML IV SCH ×2 (07:35→10:34)
[2019-09-02 07:56] LABS: HEMOGLOBIN 16.4 G/DL (13.3-17.7); MEAN PLATELET VOLUME 9.9 FL (7.4-10.4); RED CELL DISTRIBUTION WIDTH 14.4 % (10.0-14.5); WHITE BLOOD COUNT 10.2 10^3/uL (4.3-11.0)
[2019-09-02] MEDS ORDERED: AMLO2.5T4 PO (08:02)
[2019-09-02] MEDS ORDERED: NITR1PAT62 TD (08:02)
[2019-09-02] MEDS ORDERED: NITR0.4T39 SL (08:05)
[2019-09-02] MEDS ORDERED: MIDAZOLAM 5 MG/5 ML (VERSED) VIAL ONE (08:06)
[2019-09-02] MEDS ORDERED: fentaNYL INJECTION 100 MCG/2 ML AMP ONE (08:06)
[2019-09-02] MEDS ORDERED: IBUP-2055 PO (08:09)
[2019-09-02 08:15] LABS: PROTHROMBIN TIME PATIENT 13.1 SEC (12.2-14.7)
[2019-09-02 08:21] LABS: ALANINE AMINOTRANSFERASE 20 U/L (0-55); ALBUMIN 4.5 GM/DL (3.2-4.5); ALKALINE PHOSPHATASE 110 U/L (40-136); BILIRUBIN,TOTAL 0.3 MG/DL (0.1-1.0); BUN/CREATININE RATIO 13; CALCIUM 9.5 MG/DL (8.5-10.1); CARBON DIOXIDE 19 MMOL/L (21-32); CHLORIDE 105 MMOL/L (98-107); CHOLESTEROL 191 MG/DL (< 200); CREATININE SERUM 0.99 MG/DL (0.60-1.30); GFR ESTIMATED > 60; GLUCOSE 267 MG/DL (70-105); HDL CHOLESTEROL 32 MG/DL (40-60); POTASSIUM 3.7 MMOL/L (3.6-5.0); SODIUM 137 MMOL/L (135-145); TOTAL PROTEIN 7.8 GM/DL (6.4-8.2); TRIGLYCERIDES 460 MG/DL (<150)
--- NOTE | 2019-09-02 08:32 | NUR ---
SPOKE WITH PT (HE HAD HIS BOTTLES) WELL CALLING [facility] TO COMPLETE THE MED REC. PT WAS ABLE TO TELL ME HOW/WHEN HE TAKES ALL HIS MEDICATIONS, ALL MATCHED THE DIRECTIONS ON BOTTLES EXCEPT THE NITRO PATCH. NITRO 0.4% PATCH: DIRECTIONS ARE APPLY 1 PATCH TO THE SKIN AND LEAVE ON FOR 12 HOURS THEN REMOVE PATCH. PT SAYS HE LEAVE THE PATCH ON ALL DAY (24 HOURS) THEN JUST REPLACES WITH A NEW PATCH. HE SAYS IF HE TAKES IT OFF AFTER 12 HOURS HE ENDS UP USING NITRO TABS UNTIL HE PUTS A NEW PATCH ON. THE FOLLOWING ARE FILL DATES: 04-26-2019 SYMBICORT (PALS) #3/90DS 05-20-2019 ATORVASTATIN #90/90DS 06-24-2019 ELIQUIS (PALS) #180/90DS 07-10-2019 AMLODIPINE #90/90DS 08-07-2019 NITRO TABS #25 08-08-2019 METFORMIN #180/90DS 08-08-2019 NITRO PATCH #30 08-20-2019 METOPROLOL #90/90DS 08-22-2019 CLOPIDOGREL #90/90DS VICTOZA AND LANTUS I HAD TO LEAVE A MESSAGE REGARDING THE LAST FILL DATE, WHEN I FIND THESE OUT I WILL UPDATE NOTES IF NEEDED. OTC MEDS: IBUPROFEN
[2019-09-02] MEDS ORDERED: HEParin 1000 UNIT/ML (10ML VIAL) FOR BOLUS ONE (09:02)
[2019-09-02] MEDS ORDERED: NITRO DRIP 25000 MCG/D5W 250 ML IV ONE (09:03)
[2019-09-02] MEDS ORDERED: EPTIFIBATIDE BOLUS 20 ML IV ONE (09:20)
--- NOTE | 2019-09-02 10:34 | Cardiac Procedure Note-CS/ASA ---
Pre-Procedure Note Pre-Op Procedure Note H&P Reviewed The H&P was reviewed, patient examined and no changes noted. Date H&P Reviewed: Sep 02, 2019 Time H&P Reviewed: 09:30 Conscious Sedation Pre-Proced Time 09:30 ASA Score 3 For ASA 3 and 4: Consider anesthesia and medical clearance. Also, for patients with a history of failed moderate sedation consider anesthesia. Airway Lungs Heart ASA score ASA 1: a normal healthy patient ASA 2: a patient with a mild systemic disease (mid diabetes, controlled hypertension, obesity ASA 3: a patient with a severe systemic disease that limits activity (angina, COPD, prior Myocardial infarction) ASA 4: a patient with an incapacitating disease that is a constant threat to life (CHF, renal failure) ASA 5: a moribund patient not expected to survive 24 hrs. (ruptured aneurysm) ASA 6: a declared brain- patient whose organs are being harvested. For emergent operations, add the letter E after the classification Mallampati Classification Grade 2 Sedation Plan Analgesia, Amnesia, Plan communicated to team members, Discussed options with patient/fam, Discussed risks with patient/fam The patient is an appropriate candidate to undergo the planned procedure, sedation, and anesthesia. The patient immediately re-assessed prior to indication. DEANA MULLIGAN MD FACP FAC CCDS Sep 02, 2019 10:34 POS
--- NOTE | 2019-09-02 10:37 | Discharge Inst-Cardiology ---
Discharge Inst-Cardiac Discharge Medications Continued Medications: Amlodipine Besylate (Amlodipine Besylate) 2.5 Mg Tablet 2.5 MG PO DAILY, TAB Apixaban (Eliquis) 5 Mg Tablet 5 MG PO BID, TAB Atorvastatin Calcium (Lipitor) 80 Mg Tablet 80 MG PO HS, TAB Budesonide/Formoterol Fumarate (Symbicort 160-4.5 Mcg Inhaler) 10.2 Gm Hfa.aer.ad 2 PUFF IH BID, INHALER Clopidogrel Bisulfate (Plavix) 75 Mg Tablet 75 MG PO DAILY, TAB Insulin Glargine,Hum.rec.anlog (Lantus) 100 Unit/1 Ml Vial 40 UNIT SQ HS, VIAL Liraglutide (Victoza 3-Paresh) 0.6 Mg/0.1 Ml Pen.injctr 1.8 MG SQ DAILY, EACH Metoprolol Succinate (Metoprolol Succinate) 50 Mg Tab.er.24h 50 MG PO DAILY, TAB Nitroglycerin (Nitroglycerin 0.4mg/HR Patch) 1 Each Patch.td24 1 EACH TD DAILY, PATCH Nitroglycerin (Nitroglycerin) 0.4 Mg Tab.subl 0.4 MG SL UD PRN for CHEST PAIN, TAB Discontinued Medications: Ibuprofen (Ibuprofen) 200 Mg Tablet 800-1000 MG PO Q8H PRN for PAIN-MILD (1-4), TAB Metformin HCl (Metformin HCl) 1,000 Mg Tablet 1000 MG PO BID, TAB Patient Instructions Patient Instructions: HOLD METFORMIN UNTIL THE MORNING OF 09/04/19, THEN RESUME PREVIOUS HOME DOSE DEANA MULLIGAN MD FACP [facility] CCDS Sep 02, 2019 10:37 POS
--- NOTE | 2019-09-02 10:38 | Discharge Inst-Post CATH ---
Discharge Inst-CATH/EP Post Cardiac Cath/EP D/C Inst Follow Up/Plan F/u with Dr José in 2 weeks ACTIVITY * Go Home directly and rest. * Limit activity of the leg (or wrist if it was used) for 7 days including aerobics, swimming, jogging, bicycling, etc. * Restrict stair-climbing for 7 days if possible, if not, climb up with your n on-cath leg, then bring together on the same step. * Avoid lifting, pushing, pulling or excessive movement of the affected ex tremity for 7 days. * Customary sexual activity may be resumed after 2 days-use caution not to use a position that strains or causes pain to the affected extremity. * No driving for 24 hours. * NO SMOKING. * Avoid straining for bowel movements for 7 days. * Gentle walking on level ground is allowed. * Returning to work will depend on the type of procedure and the results. Your doctor will discuss this with you. CALL YOUR DOCTOR FOR ANY OF THE FOLLOWING: *If bleeding from the puncture site occurs- Apply gentle pressure to site with clean cloth and call your doctor or EMS. * If a knot or lump forms under the skin, increases in size, or causes pain. * If bruising appears to be worsening or moving further down your leg instead of disappearing. * Temperature above 101 F. CARE OF YOUR GROIN INCISION; * Bruising or purple discoloration of the skin near the puncture site is common. * You may shower only, no bathtub bathing for 5 days. Be careful to avoid slipping as your leg may feel stiff. * If a closure device was used on your femoral artery, please see the attached guide regarding care of the device and your leg. * Leave dressing on FOR 24 hours. CARE OF YOUR WRIST INCISION; * Bruising or purple discoloration of the skin near the puncture site is common. * You may shower. * DO NOT submerge wrist. * Leave dressing on FOR 24 hours. DEANA JOSÉ MD FAC FAC CCDS Sep 02, 2019 10:38 POS
[2019-09-02] MEDS ORDERED: PATIENT MAY USE OWN MEDS, ALL PO SCH (10:45)
--- NOTE | 2019-09-02 11:12 | CARDIAC CATHETERIZATION ---
DATE OF SERVICE: 09/02/2019 CARDIAC CATHETERIZATION REPORT The patient is a 53-year-old man who is known to have coronary artery disease and has had multiple coronary interventions in the past. He is known to have had Alpine Xience 2.25 x 28 mm stent in the distal right coronary by Dr. Payne on 04/30/2017. He then had an Alpine Xience 2.25 x 23 mm stent to the proximal left circumflex by Dr. Payne on 05/01/2017. On 05/22/2018, he had Alpine Xience 2.25 x 12 mm stent to the proximal left circumflex. On 12/07/2018, he had Xience Citlalli 2.5 x 12 mm stent to the proximal left circumflex. He has lately been having symptoms of increasing angina. Repeat cardiac catheterization was carried out today after having obtained the informed consent. DESCRIPTION OF PROCEDURE: He was brought to the cardiac catheterization laboratory in a fasting state. Right groin was prepared and draped in the usual sterile fashion. Lidocaine 1% used for local anesthesia. Modified Seldinger technique was used to advance a 6-[place] sheath in right femoral artery. A 6-[place] JL4 catheter for left coronary angiography. A 6-[place] JR4 catheter for right coronary angiography. A 6-[place] Pigtail catheter was used for left heart catheterization and left ventricular angiography. Subsequently, we attempted to intervene on the distal right coronary artery, which was found to be completely occluded and collateralized from the left coronary system. PERCUTANEOUS INTERVENTION TO THE RIGHT CORONARY ARTERY: We used a 6-[place] JL4 guide catheter with side holes. We gave 350 mcg of intracoronary nitroglycerin to relieve proximal coronary spasm. We gave 6000 units of intravenous heparin and double bolus of Integrilin. We used multiple wires to try and cross the distal stented segment. We used an Emerge 2.0 x 20 mm balloon to provide support for wire advancement as well. The wire was used for ChoICE floppy, ChoICE PT graphics, and Whisper medium support wires. We were not able to cross the complete occlusion on the distal stented segment of the right coronary. At the completion of the procedure, the coronary status remains unchanged. Angiography of the right femoral artery was carried out through the sheath. The site of sheath insertion did not appear suitable for deployment of Mynx. The sheath was sutured and the patient was transferred to the floor for manual sheath removal. The patient tolerated the procedure well. HEMODYNAMICS: Left ventricular end-diastolic pressure following coronary angiography was 29 mmHg. There is no significant pressure gradient on pullback across the aortic valve. Ascending aortic pressure was 137/79 with a mean 102 mmHg. Left ventricular end-diastolic pressure following coronary angiography was 29 mmHg. There is no significant pressure gradient on pullback and across the aortic valve. Ascending aortic pressure was 137/79 with a mean of 102 mmHg. Left ventricular coronary angiography: Left ventricular coronary angiography was carried out in the right anterior oblique projection. Global left ventricular systolic function is well preserved. There is posterobasal akinesis. CORONARY ANGIOGRAPHY: Left main coronary artery is free of significant disease. Left anterior descending artery has 40% to 50% mid vessel stenosis. The proximal left circumflex artery has a fairly long stented segment that does not exhibit significant stenosis. The ostium of the left circumflex artery has approximately 40% stenosis. Right coronary artery is dominant and is occluded in its distal portion within a distal right coronary artery stent. The posterior descending branch of right coronary artery is heavily collateralized from the left coronary system. CONCLUSIONS: 1. Chronic total occlusion of the distal right coronary artery within a stented segment to which attempt at percutaneous intervention today was unsuccessful. The distal right coronary artery is collateralized from the left coronary system. 2. Patent overlapping stents within the left circumflex that are known to be, from proximal to distal, Xience Citlalli 2.5 x 12 mm, Alpine Xience 2.25 x 23 mm and Alpine Xience 2.25 x 12 mm. The ostial left circumflex artery has 40% stenosis. 3. The right coronary artery has 40% to 50% mid vessel stenosis. 4. Elevated left ventricular end-diastolic pressure. 5. Posterior basal akinesis. 6. Well preserved global left ventricular systolic function with ejection fraction approximately 50%. DISCUSSION AND RECOMMENDATIONS: We are continuing his current medical regimen. Risk factor modification has been reviewed. Outpatient followup is advised. Job ID: [id number] DocumentID: [id number] Dictated Date: 09/02/2019 10:18:42 Factory Laborer Date: 09/02/2019 11:11:46 Dictated By: DEANA MULLIGAN MD, MA, FACP, FACC,
[2019-09-02] MEDS ORDERED: ATROPINE INJECTION 1 MG/10 ML SYR (ABBOTT) IV ONE (11:15)
[2019-09-02] MEDS ORDERED: fentaNYL INJECTION 100 MCG/2 ML AMP IVP ONE (11:15)
--- NOTE | 2019-09-02 13:24 | NUR ---
Fentanyl given for pre procedural sheath pull
--- NOTE | 2019-09-02 18:44 | NUR ---
Pt ambulated without any difficulty, right groin site dressing remains clean, dry and intact. Pt states that he is free from pain. No changes to right groin site noted. Entire discharge packet discussed with patient. Follow up appointment discussed with patient. Patient stated that he does not have any further questions at this time. Patient reminded that he has an appointment that was already scheduled prior to admission for tomorrow with the language therapist but to keep his follow up appointment as well per physicians jail officer. Pt denies pain. IV was removed. VSS. Pt leaving floor via foot at 1844, Radha VILLEGAS walking patient out. IV removed. Pts has remained at bedside. Pts daughter is his ride home.
== END 2019-09-02 18:44 | disposition home or self-care (01) ==
LOC: CATH 07:21 → ICU 10:32 → CATH 18:44
PROVIDERS: ATTEND Internal Medicine Cardiovascular Disease
DX: I25.118 Atherosclerotic heart disease of native coronary artery with other forms of angina pectoris (principal); I25.82 Chronic total occlusion of coronary artery; E11.9 Type 2 diabetes mellitus without complications; I65.23 Occlusion and stenosis of bilateral carotid arteries; I48.91 Unspecified atrial fibrillation; E78.49 Other hyperlipidemia; I48.3 Typical atrial flutter; E66.9 Obesity, unspecified; Z68.35 Body mass index [BMI] 35.0-35.9, adult; Z79.899 Other long term (current) drug therapy; Z79.84 Long term (current) use of oral hypoglycemic drugs; Z96.659 Presence of unspecified artificial knee joint; Z87.891 Personal history of nicotine dependence; Z79.01 Long term (current) use of anticoagulants; Z95.5 Presence of coronary angioplasty implant and graft
CPT/HCPCS: 36415; 80053; 80061; 85027; 85610; 85730; 87081; 93458

== ENCOUNTER → 2019-10-03 | Outpatient (CLI) | payer MEDICAID ==
[~2019-10-03] MED LIST changes: +CATHETER FLUSH 10 ML SYR IV PRN; +HOLD METFORMIN - RECEIVED CONTRAST 20 ML VIAL IV SCH; +IBUP-2055 PO; +IOHEXOL 350 MG/ML 100 ML (OMNIPAQUE 350) VIAL IV ONE; +NITR0.4T39 SL; +NITR1PAT62 TD; +NS 100 ML (IVPB) BAG IV ONE
[2019-10-03 10:39] LABS: BUN/CREATININE RATIO 11; CREATININE SERUM 0.83 MG/DL (0.60-1.30); GFR ESTIMATED > 60
--- NOTE | 2019-10-03 11:26 | Diagnostic Imaging Report ---
PROCEDURE: CT chest with contrast only. TECHNIQUE: Multiple contiguous axial images were obtained through the chest after administration of intravenous contrast. Auto Exposure Controls were utilized during the CT exam to meet ALARA standards for radiation dose reduction. INDICATION: Hypersomnia, cough, COPD. FINDINGS: There are no prior CT chest examinations available for comparison. The plain film examination which was performed on 01/08/2019 failed to show any sign of an acute cardiopulmonary abnormality. On this exam, there are mild emphysematous changes involving both lungs. There is no evidence for failure, pneumonia, or for a pleural effusion to indicate an acute abnormality. There is no parenchymal lung mass noted. The heart size is at the upper limits of normal. Coronary artery stents are evident. The aorta is not abnormally dilated, and there is no sign of a dissection. There is no defect within the pulmonary arteries to indicate a pulmonary embolus. There is no mediastinal or hilar adenopathy. The thyroid gland is generally unremarkable. The sections through the upper abdomen show that the liver is of lower density than usually seen. This does suggest fatty metamorphosis. There is no acute abnormality of the upper abdomen. The bone windows show no evidence for a fracture or for a destructive lesion. The loop recorder device seen on the previous study is again evident. IMPRESSION: 1. There are mild emphysematous changes involving both lungs, but there is no evidence for an acute cardiopulmonary abnormality. 2. There is borderline cardiomegaly, and there are coronary artery stents evident. A loop recorder device is also noted. 3. The appearance of the liver does suggest fatty metamorphosis. Dictated by: Dictated on workstation # [id number]
== END ==
LOC: RAD 10:13
PROVIDERS: ATTEND Nurse Practitioner Family
DX: I48.0 Paroxysmal atrial fibrillation (principal); G47.10 Hypersomnia, unspecified; G47.50 Parasomnia, unspecified; R05 Cough; J43.9 Emphysema, unspecified; Z72.0 Tobacco use; Z95.5 Presence of coronary angioplasty implant and graft
CPT/HCPCS: 36415; 71260; 82565; 84520

== ENCOUNTER 2019-10-23 20:22 | Outpatient (CLI) | payer MEDICAID ==
[~2019-10-23 20:22] MED LIST changes: -CATHETER FLUSH 10 ML SYR IV PRN; -HOLD METFORMIN - RECEIVED CONTRAST 20 ML VIAL IV SCH; -IBUP-2055 PO; +IBUP-2473 PO; -IOHEXOL 350 MG/ML 100 ML (OMNIPAQUE 350) VIAL IV ONE; -METO-370 PO; +METO50TA7 PO; -NS 100 ML (IVPB) BAG IV ONE; -TAMS0.4C98 PO; +TMSL.4C PO
== END 2019-10-24 06:05 | disposition home or self-care (01) ==
LOC: SLEEP 20:22
PROVIDERS: ATTEND Nurse Practitioner Family
DX: G47.10 Hypersomnia, unspecified (principal)
CPT/HCPCS: 95810

== ENCOUNTER → 2019-10-27 | Outpatient (CLI) | payer MEDICAID ==
[~2019-10-27] MED LIST changes: +RT-ALBUTEROL SULF 2.5 MG/3 ML PRE-MIX VIAL INH ONE; +RT-ALBUTEROL SULF 2.5 MG/3 ML PRE-MIX VIAL ONE
== END ==
LOC: RT 14:48
PROVIDERS: ATTEND Nurse Practitioner Family
DX: I48.0 Paroxysmal atrial fibrillation (principal); G47.10 Hypersomnia, unspecified; G47.50 Parasomnia, unspecified; J44.9 Chronic obstructive pulmonary disease, unspecified; Z72.0 Tobacco use
CPT/HCPCS: 94060; 94726; 94729

== ENCOUNTER 2019-11-05 21:31 | Emergency (ER) | payer MEDICAID ==
[~2019-11-05] VITALS: Ht 175.2 cm; Wt 90.7 kg
[~2019-11-05 21:31] MED LIST changes: -RT-ALBUTEROL SULF 2.5 MG/3 ML PRE-MIX VIAL INH ONE; -RT-ALBUTEROL SULF 2.5 MG/3 ML PRE-MIX VIAL ONE
[2019-11-05 21:35] VITALS: BP 115/78
[2019-11-05] MEDS ORDERED: fentaNYL INJECTION 100 MCG/2 ML AMP IVP ONE (21:45)
[2019-11-05 21:55] LABS: BASOPHILS % (AUTO) 0 % (0-10); EOSINOPHILS # (AUTO) 0.2 10^3/uL (0.0-0.3); EOSINOPHILS % (AUTO) 1 % (0-10); HEMATOCRIT 49 % (40-54); HEMOGLOBIN 16.8 G/DL (13.3-17.7); LYMPHOCYTES # (AUTO) 2.2 X 10^3 (1.0-4.0); LYMPHOCYTES % (AUTO) 19 % (12-44); MEAN CORPUSCULAR HEMOGLOBIN 27 PG (25-34); MEAN CORPUSCULAR HGB CONC 34 G/DL (32-36); MEAN CORPUSCULAR VOLUME 80 FL (80-99); MEAN PLATELET VOLUME 10.2 FL (7.4-10.4); MONOCYTES # (AUTO) 0.9 X 10^3 (0.0-1.0); MONOCYTES % (AUTO) 8 % (0-12); NEUTROPHILS # (AUTO) 8.3 X 10^3 (1.8-7.8); NEUTROPHILS % (AUTO) 72 % (42-75); PLATELET COUNT 271 10^3/uL (130-400); WHITE BLOOD COUNT 11.6 10^3/uL (4.3-11.0)
[2019-11-05 22:10] LABS: FIBRIN DEGRADATION PRODUCTS 0.76 UG/ML (0.00-0.49); INR 1.1 (0.8-1.4); PROTHROMBIN TIME PATIENT 14.5 SEC (12.2-14.7)
--- NOTE | 2019-11-05 22:24 | Diagnostic Imaging Report ---
PROCEDURE: CT head wo r/o stroke. TECHNIQUE: Multiple contiguous axial images were obtained through the brain without the use of intravenous contrast. Auto Exposure Controls were utilized during the CT exam to meet ALARA standards for radiation dose reduction. INDICATION: Headaches for a month EXAMINATION: CT brain without contrast dated 11/05/2019. Comparison is made to 05/14/2008 FINDINGS: Axial images of the brain demonstrates hemorrhage in the left posterior parietal lobe which may involve portions of the left occipital lobe as well. Surrounding vasogenic edema is noted. An underlying mass in the region not excluded especially given headaches for month. There is mild mass effect upon the posterior horn of the left lateral ventricle. Minimal hyperdensity posteriorly on falx most likely normal for patient although small amount of subdural blood difficult to exclude. Additionally, there are vague hyperdense areas more anteriorly along the sulci of the left parietal lobe which could represent subarachnoid blood. Minimal mass effect towards the right is noted. Minimal mass effect and midline shift towards the right is noted. No seth hydrocephalus. The paranasal sinuses demonstrate chronic changes. IMPRESSION: 1. Acute hemorrhage noted in the left parietal possibly portions of the occipital lobe with surrounding edema. Underlying mass not excluded, MRI recommended. 2. Possible small amount of blood along the falx posteriorly with suspected subarachnoid blood in the left mid parietal lobe, other findings as above including mild mass effect, midline shift towards the right. Findings will be called to the Emergency Room by Dr. Jansen on 11/05/2019 at 10:09 PM Dictated by: Dictated on workstation # [id number]
[2019-11-05 22:25] LABS: ALANINE AMINOTRANSFERASE 32 U/L (0-55); ALBUMIN 4.5 GM/DL (3.2-4.5); ALKALINE PHOSPHATASE 109 U/L (40-136); BILIRUBIN,TOTAL 0.6 MG/DL (0.1-1.0); BUN/CREATININE RATIO 12; CALCIUM 9.9 MG/DL (8.5-10.1); CARBON DIOXIDE 19 MMOL/L (21-32); CHLORIDE 105 MMOL/L (98-107); GFR ESTIMATED > 60; GLUCOSE 152 MG/DL (70-105); POTASSIUM 4.2 MMOL/L (3.6-5.0); SODIUM 138 MMOL/L (135-145); TOTAL PROTEIN 7.9 GM/DL (6.4-8.2)
[2019-11-05] MEDS ORDERED: morphine INJ 10 MG/ML 1ML (SYR OR VIAL) IVP STA (22:34)
--- NOTE | 2019-11-05 22:34 | ED Neurological Problem ---
General Chief Complaint: Neuro-Stroke Like Symptoms Stated Complaint: HEADACHE Source: patient, EMS Exam Limitations: no limitations History of Present Illness Date Seen by Provider: Nov 05, 2019 Time Seen by Provider: 21:32 Initial Comments This 54-year-old gentleman presents to the emergency room with complaints of rather severe headache over the past month which he attributes to starting isosorbide mononitrate. He has also gradually developed diplopia, difficulty with word finding, and some disequilibrium with gait. These symptoms have progressively worsened over the past 2-3 days. His diplopia is horizontal. He has a history of atrial fibrillation and coronary artery disease and takes both Plavix and Eliquis. His last doses were around 09:00. He has no history of head injury associated with these symptoms. Allergies and Home Medications Allergies Coded Allergies: bee pollen (Unverified Allergy, Mild, 05/20/18) Home Medications Amlodipine Besylate 2.5 Mg Tablet, 2.5 MG PO DAILY, (Reported) Apixaban 5 Mg Tablet, 5 MG PO BID, (Reported) Atorvastatin Calcium 80 Mg Tablet, 80 MG PO HS, (Reported) Budesonide/Formoterol Fumarate 10.2 Gm Hfa.aer.ad, 2 PUFF IH BID, (Reported) Clopidogrel Bisulfate 75 Mg Tablet, 75 MG PO DAILY, (Reported) Insulin Glargine,Hum.rec.anlog 100 Unit/1 Ml Vial, 40 UNIT SQ HS, (Reported) Liraglutide 0.6 Mg/0.1 Ml Pen.injctr, 1.8 MG SQ DAILY, (Reported) Metoprolol Succinate 50 Mg Tab.er.24h, 50 MG PO DAILY, (Reported) Nitroglycerin 1 Each Patch.td24, 1 EACH TD DAILY, (Reported) Nitroglycerin 0.4 Mg Tab.subl, 0.4 MG SL UD PRN for CHEST PAIN, (Reported) Patient Home Medication List Home Medication List Reviewed: Yes Review of Systems Review of Systems Constitutional: no symptoms reported Eyes: No Symptoms Reported Ears, Nose, Mouth, Throat: no symptoms reported Respiratory: no symptoms reported Cardiovascular: see HPI Gastrointestinal: no symptoms reported Genitourinary: no symptoms reported Musculoskeletal: no symptoms reported Skin: no symptoms reported Psychiatric/Neurological: See HPI Endocrine: No Symptoms Reported Hematologic/Lymphatic: No Symptoms Reported Past Kdieeoj-Gxzmqx-Ygzjgw Hx Past Med/Social Hx: Reviewed Nursing Past Med/Soc Hx Patient Social History Alcohol Beverage of Choice: Beer Type Used: Cigarettes, Electronic/Vapor Former Smoker, Quit: Nov 25, 2018 2nd Hand Smoke Exposure: Yes Recent Foreign Travel: No Contact w/Someone Who Travel: No Recent Hopitalizations: No Immunizations Up To Date Tetanus Booster (TDap): Unknown Date of Pneumonia Vaccine: Jul 18, 2018 Seasonal Allergies Seasonal Allergies: No Past Medical History Surgeries: Yes Cardiac, Coronary Stent, Orthopedic, Tonsillectomy Respiratory: Yes COPD Cardiac: Yes Atrial Fibrillation, Coronary Artery Disease, High Cholesterol, Hypertension Neurological: No Reproductive Disorders: No Sexually Transmitted Disease: No HIV/AIDS: No Genitourinary: No Gastrointestinal: No Musculoskeletal: Yes ( FX HAND; SHOULDER AND KNEE SURGERIES) Fractures Endocrine: Yes Diabetes, Non-Insulin dep HEENT: No Cancer: No Psychosocial: No Integumentary: No Blood Disorders: No Family Medical History Cardiovascular disease 19 FATHER Diabetes mellitus 19 MOTHER FH: lung cancer G8 SISTER Myocardial infarction 19 FATHER No Pertinent Family Hx Physical Exam Vital Signs Vital Signs - First Documented 11/05/19 11/06/19 21:35 01:10 Temp 36.8 Pulse 84 Resp 20 B/P (MAP) 115/78 Pulse Ox 99 O2 Delivery Room Air O2 Flow Rate 2.00 Capillary Refill : Height, Weight, BMI Height: 5'9.00" Weight: 209lbs. 3.2oz. 94.888620xh; 31.07 BMI Method:Stated General Appearance: WD/WN, mild distress HEENT: PERRL/EOMI, normal ENT inspection Neck: normal inspection Respiratory: lungs clear, normal breath sounds, no respiratory distress, no accessory muscle use Cardiovascular: regular rate, rhythm, no edema, no murmur Gastrointestinal: normal bowel sounds, soft Extremities: normal inspection, no pedal edema Neurologic/Psychiatric: no motor/sensory deficits, alert, normal mood/affect, oriented x 3, other (disequilibrium noted by EMS when he ambulated to the cot. Some subtle difficulty with word finding.) Crainal Nerves: normal hearing, normal speech Coordination/Gait: abnormal gait (reported by EMS) Skin: warm/dry, diaphoresis Stroke NIH Stroke Scale Assessment Select: Post CT Level of Consciousness: 0=Alert (0), Level of Consciousness- Questions: 1=Answers one question (1), LOC Commands: 0=Performs both tasks (0), Gaze: Normal (0), Visual Browne: 0=No visual loss (0), Facial Movement (Facial Paresis): 0=Normal symmetrical mnt (0), Motor Function-Arms Right: 0=No drift (0), Motor Function-Arms Left: 0=No drift (0), Motor Function-Legs Right: 0=No drift (0), Motor Function-Legs Left: 0=No drift (0), Limb Ataxia: 0=Absent (0), Sensory: 0=Normal:no loss (0), Best Language: 0=No aphasia (0), Dysarthria: 0=Normal (0), Extinction & Inattention: 0=No abnormality (0), Total: 1 Progress/Results/Core Measures Results/Orders Lab Results Laboratory Tests Test 11/05/19 21:49 11/05/19 22:25 Range/Units White Blood Count 11.6 H 4.3-11.0 10^3/uL Red Blood Count 6.13 H 4.35-5.85 10^6/uL Hemoglobin 16.8 13.3-17.7 G/DL Hematocrit 49 40-54 % Mean Corpuscular Volume 80 80-99 FL Mean Corpuscular Hemoglobin 27 25-34 PG Mean Corpuscular Hemoglobin Concent 34 32-36 G/DL Red Cell Distribution Width 15.0 H 10.0-14.5 % Platelet Count 271 130-400 10^3/uL Mean Platelet Volume 10.2 7.4-10.4 FL Neutrophils (%) (Auto) 72 42-75 % Lymphocytes (%) (Auto) 19 12-44 % Monocytes (%) (Auto) 8 0-12 % Eosinophils (%) (Auto) 1 0-10 % Basophils (%) (Auto) 0 0-10 % Neutrophils # (Auto) 8.3 H 1.8-7.8 X 10^3 Lymphocytes # (Auto) 2.2 1.0-4.0 X 10^3 Monocytes # (Auto) 0.9 0.0-1.0 X 10^3 Eosinophils # (Auto) 0.2 0.0-0.3 10^3/uL Basophils # (Auto) 0.0 0.0-0.1 10^3/uL Prothrombin Time 14.5 12.2-14.7 SEC INR Comment 1.1 0.8-1.4 Activated Partial Thromboplast Time 26 24-35 SEC D-Dimer 0.76 H 0.00-0.49 UG/ML Sodium Level 138 135-145 MMOL/L Potassium Level 4.2 3.6-5.0 MMOL/L Chloride Level 105 98-107 MMOL/L Carbon Dioxide Level 19 L 21-32 MMOL/L Anion Gap 14 5-14 MMOL/L Blood Urea Nitrogen 12 7-18 MG/DL Creatinine 1.00 0.60-1.30 MG/DL Estimat Glomerular Filtration Rate > 60 BUN/Creatinine Ratio 12 Glucose Level 152 H 70-105 MG/DL Calcium Level 9.9 8.5-10.1 MG/DL Corrected Calcium 9.5 8.5-10.1 MG/DL Total Bilirubin 0.6 0.1-1.0 MG/DL Aspartate Amino Transf (AST/SGOT) 22 5-34 U/L Alanine Aminotransferase (ALT/SGPT) 32 0-55 U/L Alkaline Phosphatase 109 40-136 U/L Troponin I < 0.028 <0.028 NG/ML Total Protein 7.9 6.4-8.2 GM/DL Albumin 4.5 3.2-4.5 GM/DL Glucometer 151 H 70-110 MG/DL My Orders Orders - STEFFANIE PINTO MD Ct Head Wo-R/O Stroke (11/05/19 21:40) Fentanyl Injection (Sublimaze Injection (11/05/19 21:45) Cbc With Automated Diff (11/05/19 21:40) Protime With Inr (11/05/19 21:40) Partial Thromboplastin Time (11/05/19 21:40) Comprehensive Metabolic Panel (11/05/19 21:40) Fibrin Degradation Products (11/05/19 21:40) Troponin I (11/05/19 21:40) Ua Culture If Indicated (11/05/19 21:40) Chest 1 View, Ap/Pa Only (11/05/19 21:40) Ekg Tracing (11/05/19 21:40) Accucheck Stat ONCE (11/05/19 21:40) Ed Iv/Invasive Line Start (11/05/19 21:40) Ed Iv/Invasive Line Start (11/05/19 21:40) Vital Signs Stroke Patient Q15M (11/05/19 21:40) O2 (11/05/19 21:40) Intake & Output 06,14,22 (11/05/19 21:40) Monitor-Rhythm Ecg Trace Only (11/05/19 21:40) Dysphagia Screening Tool (11/05/19 21:40) Morphine Injection (Morphine Injection (11/05/19 22:34) Hydromorphone Injection (Dilaudid Inject (11/05/19 23:45) Human Prothrombin Complx(Pcc) (Kcentra K (11/05/19 23:45) Desmopressin Inj (Non-Form) (Ddavp Injec (11/05/19 23:45) Hydromorphone Injection (Dilaudid Inject (11/06/19 00:30) Ns (Ivpb) (Sodium Chloride 0.9% Ivpb Bag (11/06/19 00:30) Ns (Ivpb) (Sodium Chloride 0.9% Ivpb Bag (11/06/19 00:57) Diphenhydramine Injection (Benadryl Inje (11/06/19 01:45) Methylprednisolone Sod Succ (Solu-Medrol (11/06/19 01:45) Medications Given in ED Current Medications Medications Dose Ordered Sig/Juan Miguel Route Start Time Stop Time Status Last Admin Dose Admin Desmopressin Acetate 0.3 MCG/KG ONCE ONCE IV 11/05/19 23:45 11/05/19 23:47 DC 11/06/19 00:43 27 MCG Diphenhydramine HCl 25 mg ONCE ONCE IVP 11/06/19 01:45 11/06/19 01:46 DC 11/06/19 01:48 25 MG Fentanyl Citrate 50 mcg ONCE ONCE IVP 11/05/19 21:45 11/05/19 21:46 DC 11/05/19 21:54 50 MCG Hydromorphone HCl 0.5 mg ONCE ONCE IV 11/05/19 23:45 11/05/19 23:47 DC 11/06/19 00:00 0.5 MG Hydromorphone HCl 1 mg ONCE ONCE IV 11/06/19 00:30 11/06/19 00:31 DC 11/06/19 00:31 1 MG Methylprednisolone Sodium Succinate 125 mg ONCE ONCE IVP 11/06/19 01:45 11/06/19 01:46 DC 11/06/19 01:46 125 MG Prothrombin Complex Concent (Human) 2,250 unit ONCE ONCE IV 11/05/19 23:45 11/05/19 23:47 DC 11/06/19 01:18 2,250 UNIT Sodium Chloride 50 ml @ ud STK-MED ONCE .ROUTE 11/06/19 00:30 11/06/19 00:35 DC 11/06/19 01:18 50 MLS/HR Sodium Chloride 100 ml @ ud STK-MED ONCE .ROUTE 11/06/19 00:57 11/06/19 01:03 DC 11/06/19 01:19 100 MLS/HR Vital Signs/I&O 11/05/19 11/05/19 11/06/19 11/06/19 21:35 21:35 01:10 02:00 Temp 36.8 Pulse 84 84 92 Resp 20 20 15 B/P (MAP) 115/78 115/78 (90) 127/79 (90) Pulse Ox 99 99 97 98 O2 Delivery Room Air Nasal Cannula Nasal Cannula O2 Flow Rate 2.00 2.00 FSBG Bedside Testing Finger Stick Blood Glucose: 151 Progress Progress Note #1: Time: 22:48 Progress Note Due to patient's progressing neurologic symptoms a CT of the head was obtained promptly. There was an intracranial bleed noted in the left parietal and occipital region with associated edema, possibly mass. There was some mild mass effect with midline shift to the right. I discussed the imaging with Dr. Jansen, radiologist. I then contacted Dr. Robertson, neurosurgeon at [facility]. She recommended transfer [facility] due to the complex nature of the CT findings. I then contacted [facility] and received acceptance from Dr. Cbob, neuro bee tender. We discussed treatment with platelets or other anticoagulant reversal agents. He recommended against this as there are no agents that are very effective in this scenario. We are having complications with transfer of this patient due to ambulance availability and inability to fly due to weather. The patient received fentanyl initially for pain which was not very effective. Morphine is being given for additional treatment. Progress Note #2: Time: 23:57 Progress Note We are still working on transportation for this patient. Anticipate another couple of hours before EMS will be available. In the meantime, Dr. Cobb called back and stated after further review he is recommending PCC and DDAVP. These have been ordered. Patient has had a worsening pain and Dilaudid has been ordered. Progress Note #3: Time: 01:17 Progress Note Patient is still neurologically intact. The DDAVP and K Centra have been administered. Pain is being controlled with Dilaudid. Initial ECG Impression Date: Nov 05, 2019 Initial ECG Impression Time: 22:50 Initial ECG Rate: 77 Initial ECG Rhythm: Normal Sinus Initial ECG Intervals: Normal Initial ECG Impression: Normal Comment Normal sinus rhythm with no ST elevation or depression. No abnormal intervals or axis deviation. Diagnostic Imaging Diagonstic Imaging: CT Plain Films/CT/US/NM/MRI: head Comments CT head viewed by me and report reviewed. See report below: NAME: SAMINA RIOS MED REC#: [id number] PT STATUS: REG ER : 1965 PHYSICIAN: STEFFANIE PINTO MD ADMIT DATE: 11/05/19/ER Draft Date of Exam:11/05/19 CT HEAD WO-R/O STROKE PROCEDURE: CT head wo r/o stroke. TECHNIQUE: Multiple contiguous axial images were obtained through the brain without the use of intravenous contrast. Auto Exposure Controls were utilized during the CT exam to meet ALARA standards for radiation dose reduction. INDICATION: Headaches for a month EXAMINATION: CT brain without contrast dated 11/05/2019. Comparison is made to 05/14/2008 FINDINGS: Axial images of the brain demonstrates hemorrhage in the left posterior parietal lobe which may involve portions of the left occipital lobe as well. Surrounding vasogenic edema is noted. An underlying mass in the region not excluded especially given headaches for month. There is mild mass effect upon the posterior horn of the left lateral ventricle. Minimal hyperdensity posteriorly on falx most likely normal for patient although small amount of subdural blood difficult to exclude. Additionally, there are vague hyperdense areas more anteriorly along the sulci of the left parietal lobe which could represent subarachnoid blood. Minimal mass effect towards the right is noted. Minimal mass effect and midline shift towards the right is noted. No seth hydrocephalus. The paranasal sinuses demonstrate chronic changes. IMPRESSION: 1. Acute hemorrhage noted in the left parietal possibly portions of the occipital lobe with surrounding edema. Underlying mass not excluded, MRI recommended. 2. Possible small amount of blood along the falx posteriorly with suspected subarachnoid blood in the left mid parietal lobe, other findings as above including mild mass effect, midline shift towards the right. Findings will be called to the Emergency Room by Dr. Jansne on 11/05/2019 at 10:09 PM Dictated on workstation # [id number] Dict: 11/05/192202 Trans: 11/05/19 2224 WEI [id number] Interpreted by: CAMILA JANSEN MD Diagonstic Imaging: Xray Plain Films/CT/US/NM/MRI: chest Comments Chest x-ray viewed by me. Report not yet available. No acute abnormalities wer e appreciated. Departure Impression Primary Impression: Intracranial hemorrhage Additional Impressions: Severe headache Diplopia Disequilibrium Word finding difficulty Disposition: 02 XFER SHT-TRM HOSP Condition: Stable Transfer Transfer Reason: Exceeds level of care Time Spoke to Accepting Phy: 22:35 Transfer Progress Notes Patient was accepted by Dr. Cobb, neurointensivist at [facility] Transfer Time: 02:00 Transfer Facility: [facility] Method of Transfer: EMS Departure-Patient Inst. Referrals: DUNIA SANTOS MD (PCP/Family) Primary Care Physician Copy Copies To 1: DUNIA SANTOS MD, JOSHUA T MD Nov 05, 2019 22:34
[2019-11-05] MEDS ORDERED: HUMAN PROTHROMBIN COMPLX(PCC) 500 UNIT (KCENTRA) IV ONE (23:45)
[2019-11-05] MEDS ORDERED: DESMOPRESSIN 4 MCG INJ IV ONE (23:45)
[2019-11-05] MEDS ORDERED: HYDROmorphone 2 MG/ML VIAL (DILAUDID) IV ONE (23:45)
[2019-11-06] MEDS ORDERED: HYDROmorphone 2 MG/ML VIAL (DILAUDID) IV ONE (00:30)
[2019-11-06] MEDS ORDERED: NS (IVPB) 50 ML ONE (00:30)
[2019-11-06] MEDS ORDERED: NS (IVPB) 100 ML ONE (00:57)
[2019-11-06] MEDS ORDERED: diphenhydrAMINE 50 MG/ML INJ (BENADRYL) IVP ONE (01:45)
[2019-11-06] MEDS ORDERED: methylPREDNISolone 125 MG (Solu-MEDROL) VIAL IVP ONE (01:45)
[2019-11-06 02:00] VITALS: BP 127/79
--- NOTE | 2019-11-06 05:31 | Diagnostic Imaging Report ---
INDICATION: Headache COMPARISON: 01/08/2019 FINDINGS: Single frontal view of the chest demonstrates normal heart size and pulmonary vascularity. The lungs are well aerated and clear. No large pleural effusion or pneumothorax is seen. The visualized osseous structures show no acute abnormalities. IMPRESSION: 1. No acute cardiopulmonary process. Dictated by: Dictated on workstation # [id number]
== END 2019-11-06 02:00 | disposition short-term general hospital (02) ==
LOC: EDUNIT# 21:31 → ER 21:32
DX: I62.9 Nontraumatic intracranial hemorrhage, unspecified (principal); H53.2 Diplopia; E87.8 Other disorders of electrolyte and fluid balance, not elsewhere classified; R47.89 Other speech disturbances; I10 Essential (primary) hypertension; E11.9 Type 2 diabetes mellitus without complications; I48.91 Unspecified atrial fibrillation; I25.10 Atherosclerotic heart disease of native coronary artery without angina pectoris; E78.00 Pure hypercholesterolemia, unspecified; J44.9 Chronic obstructive pulmonary disease, unspecified; Z95.5 Presence of coronary angioplasty implant and graft; Z79.02 Long term (current) use of antithrombotics/antiplatelets; Z79.01 Long term (current) use of anticoagulants; Z79.4 Long term (current) use of insulin; Z87.891 Personal history of nicotine dependence; Z77.22 Contact with and (suspected) exposure to environmental tobacco smoke (acute) (chronic); Z82.49 Family history of ischemic heart disease and other diseases of the circulatory system; Z80.1 Family history of malignant neoplasm of trachea, bronchus and lung
CPT/HCPCS: 36415; 70450; 71045; 80053; 82962; 84484; 85025; 85379; 85610; 85730; 93005; 93041; 96374; 96375; 96376

== ENCOUNTER 2019-11-17 13:25 | Emergency (ER) | payer MEDICAID ==
[~2019-11-17] VITALS: Ht 175.3 cm; Wt 81.8 kg
[2019-11-17] MEDS ORDERED: ANTACID SUSP 30 ML UDC (MYLANTA) PO ONE (14:45)
[2019-11-17] MEDS ORDERED: ONDANSETRON 4 MG/2 ML (SDV) Z0FRAN IVP ONE (14:45)
[2019-11-17] MEDS ORDERED: PANTOPRAZOLE 40 MG (PROTONIX) VIAL IV ONE (14:45)
[2019-11-17] MEDS ORDERED: LIDOCAINE 2% VISCOUS 15 ML UDC PO ONE (14:45)
[2019-11-17 14:54] LABS: BILIRUBIN,URINE NEGATIVE (NEGATIVE); CLARITY,URINE CLEAR; COLOR,URINE YELLOW; GLUCOSE, URINE (UA) 2+ (NEGATIVE); KETONES,URINE TRACE (NEGATIVE); LEUKOCYTE ESTERASE ,URINE NEGATIVE (NEGATIVE); NITRITE,URINE NEGATIVE (NEGATIVE); PROTEIN,URINE NEGATIVE (NEGATIVE)
[2019-11-17 14:54] LABS: BASOPHILS % (AUTO) 0 % (0-10); EOSINOPHILS # (AUTO) 0.2 10^3/uL (0.0-0.3); EOSINOPHILS % (AUTO) 1 % (0-10); HEMATOCRIT 44 % (40-54); HEMOGLOBIN 15.4 G/DL (13.3-17.7); LYMPHOCYTES # (AUTO) 3.8 X 10^3 (1.0-4.0); LYMPHOCYTES % (AUTO) 28 % (12-44); MEAN CORPUSCULAR HEMOGLOBIN 27 PG (25-34); MEAN CORPUSCULAR HGB CONC 35 G/DL (32-36); MEAN CORPUSCULAR VOLUME 79 FL (80-99); MEAN PLATELET VOLUME 9.8 FL (7.4-10.4); MONOCYTES # (AUTO) 1.6 X 10^3 (0.0-1.0); MONOCYTES % (AUTO) 12 % (0-12); NEUTROPHILS % (AUTO) 59 % (42-75); PLATELET COUNT 317 10^3/uL (130-400); RED CELL DISTRIBUTION WIDTH 14.4 % (10.0-14.5); WHITE BLOOD COUNT 13.5 10^3/uL (4.3-11.0)
--- NOTE | 2019-11-17 15:02 | ED General ---
General Chief Complaint: General Problems/Pain Stated Complaint: CONFUSION;HEART BURN Nursing Triage Note: PT AMB TO TRIAGE WITH COMPLAINT OF HEART BURN AND CONFUSION. STATES HEART BURN STARTED AFTER TAKING STEROIDS FOR BRAIN TUMOR REMOVAL ON 11/11/2019. STATES THIS MORNING THE DOG BARKED AND PT BECAME CONFUSED. Nursing Sepsis Screen: No Definite Risk Source of Information: Patient History of Present Illness Date Seen by Provider: Nov 17, 2019 Time Seen by Provider: 14:27 Initial Comments PT ARRIVES VIA POV FROM HOME, WITH PT HAD AN INTRACRANIAL BLEED ON 11/05/19 ( WAS ON BOTH ELIQUIS AND PLAVIX FOR CORONARY ARTERY DISEASE AND HISTORY OF ATRIAL FIBRILLATION) WAS FOUND TO HAVE A LARGE BRAIN MASS AT THAT TIME Allergies and Home Medications Allergies Coded Allergies: bee pollen (Unverified Allergy, Mild, 05/20/18) Home Medications Amlodipine Besylate 2.5 Mg Tablet, 2.5 MG PO DAILY, (Reported) Apixaban 5 Mg Tablet, 5 MG PO BID, (Reported) Atorvastatin Calcium 80 Mg Tablet, 80 MG PO HS, (Reported) Budesonide/Formoterol Fumarate 10.2 Gm Hfa.aer.ad, 2 PUFF IH BID, (Reported) Clopidogrel Bisulfate 75 Mg Tablet, 75 MG PO DAILY, (Reported) Insulin Glargine,Hum.rec.anlog 100 Unit/1 Ml Vial, 40 UNIT SQ HS, (Reported) Liraglutide 0.6 Mg/0.1 Ml Pen.injctr, 1.8 MG SQ DAILY, (Reported) Metoprolol Succinate 50 Mg Tab.er.24h, 50 MG PO DAILY, (Reported) Nitroglycerin 1 Each Patch.td24, 1 EACH TD DAILY, (Reported) Nitroglycerin 0.4 Mg Tab.subl, 0.4 MG SL UD PRN for CHEST PAIN, (Reported) Past Dowaieq-Vhoart-Eeqvus Hx Patient Social History Alcohol Use: Denies Use Number of Drinks Today: AA Alcohol Beverage of Choice: Beer Recreational Drug Use: No Smoking Status: Current Everyday Smoker Type Used: Cigarettes, Electronic/Vapor Former Smoker, Quit: Nov 25, 2018 2nd Hand Smoke Exposure: Yes Recent Foreign Travel: No Contact w/Someone Who Travel: No Recent Infectious Disease Expo: No Recent Hopitalizations: No Immunizations Up To Date Tetanus Booster (TDap): Unknown Date of Pneumonia Vaccine: Jul 18, 2018 Seasonal Allergies Seasonal Allergies: No Past Medical History Surgeries: Yes (LEFT SHOULDER X 1, RIGHT SHOULDER X2; RIGHT KNEE X2; CARDIOVERSION, 2 STENT) Cardiac, Coronary Stent, Neurological, Orthopedic, Tonsillectomy Respiratory: Yes COPD Cardiac: Yes Atrial Fibrillation, Coronary Artery Disease, High Cholesterol, Hypertension Neurological: Yes Brain Tumor Reproductive Disorders: No Sexually Transmitted Disease: No HIV/AIDS: No Genitourinary: No Gastrointestinal: No Musculoskeletal: Yes ( FX HAND; SHOULDER AND KNEE SURGERIES) Fractures Endocrine: Yes Diabetes, Non-Insulin dep HEENT: No Cancer: No Psychosocial: No Integumentary: No Blood Disorders: No Family Medical History Cardiovascular disease 19 FATHER Diabetes mellitus 19 MOTHER FH: lung cancer G8 SISTER Myocardial infarction 19 FATHER No Pertinent Family Hx Physical Exam Vital Signs Vital Signs - First Documented 11/17/19 13:52 Temp 35.2 Pulse 108 Resp 20 B/P (MAP) 118/77 (91) Pulse Ox 98 O2 Delivery Room Air Capillary Refill : Less Than 3 Seconds Height, Weight, BMI Height: 5'9.00" Weight: 209lbs. 3.2oz. 94.564250or; 26.00 BMI Method:Stated Progress/Results/Core Measures Suspected Sepsis Recent Fever Within 48 Hours: No Infection Criteria Present: None New/Unexplained Altered Menta: No Sepsis Screen: No Definite Risk SIRS Temperature: Pulse: 108 Respiratory Rate: 20 Laboratory Tests 11/17/19 14:47: White Blood Count 13.5H Blood Pressure 118 /77 Mean: 91 Laboratory Tests 11/17/19 14:47: Creatinine 0.98, INR Comment 0.9, Platelet Count 317, Total Bilirubin 0.4 Results/Orders Lab Results Laboratory Tests Test 11/17/19 14:30 11/17/19 14:47 Range/Units Urine Color YELLOW Urine Clarity CLEAR Urine pH 6.0 5-9 Urine Specific Tyler 1.020 1.016-1.022 Urine Protein NEGATIVE NEGATIVE Urine Glucose (UA) 2+ H NEGATIVE Urine Ketones TRACE H NEGATIVE Urine Nitrite NEGATIVE NEGATIVE Urine Bilirubin NEGATIVE NEGATIVE Urine Urobilinogen 0.2 < = 1.0 MG/DL Urine Leukocyte Esterase NEGATIVE NEGATIVE Urine RBC (Auto) NEGATIVE NEGATIVE Urine RBC NONE /HPF Urine WBC NONE /HPF Urine Crystals NONE /LPF Urine Bacteria TRACE /HPF Urine Casts NONE /LPF Urine Mucus SMALL H /LPF Urine Culture Indicated NO Urine Opiates Screen NEGATIVE NEGATIVE Urine Oxycodone Screen POSITIVE H NEGATIVE Urine Methadone Screen NEGATIVE NEGATIVE Urine Propoxyphene Screen NEGATIVE NEGATIVE Urine Barbiturates Screen NEGATIVE NEGATIVE Ur Tricyclic Antidepressants Screen NEGATIVE NEGATIVE Urine Phencyclidine Screen NEGATIVE NEGATIVE Urine Amphetamines Screen NEGATIVE NEGATIVE Urine Methamphetamines Screen NEGATIVE NEGATIVE Urine Benzodiazepines Screen NEGATIVE NEGATIVE Urine Cocaine Screen NEGATIVE NEGATIVE Urine Cannabinoids Screen NEGATIVE NEGATIVE White Blood Count 13.5 H 4.3-11.0 10^3/uL Red Blood Count 5.62 4.35-5.85 10^6/uL Hemoglobin 15.4 13.3-17.7 G/DL Hematocrit 44 40-54 % Mean Corpuscular Volume 79 L 80-99 FL Mean Corpuscular Hemoglobin 27 25-34 PG Mean Corpuscular Hemoglobin Concent 35 32-36 G/DL Red Cell Distribution Width 14.4 10.0-14.5 % Platelet Count 317 130-400 10^3/uL Mean Platelet Volume 9.8 7.4-10.4 FL Neutrophils (%) (Auto) 59 42-75 % Lymphocytes (%) (Auto) 28 12-44 % Monocytes (%) (Auto) 12 0-12 % Eosinophils (%) (Auto) 1 0-10 % Basophils (%) (Auto) 0 0-10 % Neutrophils # (Auto) 8.0 H 1.8-7.8 X 10^3 Lymphocytes # (Auto) 3.8 1.0-4.0 X 10^3 Monocytes # (Auto) 1.6 H 0.0-1.0 X 10^3 Eosinophils # (Auto) 0.2 0.0-0.3 10^3/uL Basophils # (Auto) 0.0 0.0-0.1 10^3/uL Prothrombin Time 13.0 12.2-14.7 SEC INR Comment 0.9 0.8-1.4 Sodium Level 137 135-145 MMOL/L Potassium Level 3.2 L 3.6-5.0 MMOL/L Chloride Level 101 98-107 MMOL/L Carbon Dioxide Level 24 21-32 MMOL/L Anion Gap 12 5-14 MMOL/L Blood Urea Nitrogen 17 7-18 MG/DL Creatinine 0.98 0.60-1.30 MG/DL Estimat Glomerular Filtration Rate > 60 BUN/Creatinine Ratio 17 Glucose Level 227 H 70-105 MG/DL Calcium Level 9.6 8.5-10.1 MG/DL Corrected Calcium 9.4 8.5-10.1 MG/DL Magnesium Level 1.7 1.6-2.4 MG/DL Total Bilirubin 0.4 0.1-1.0 MG/DL Aspartate Amino Transf (AST/SGOT) 19 5-34 U/L Alanine Aminotransferase (ALT/SGPT) 33 0-55 U/L Alkaline Phosphatase 74 40-136 U/L Total Protein 7.2 6.4-8.2 GM/DL Albumin 4.2 3.2-4.5 GM/DL Amylase Level 50 25-125 U/L Lipase 70 8-78 U/L My Orders Orders - CLYDE MENENDEZ DO Amylase (11/17/19 14:39) Lipase (11/17/19 14:39) Magnesium (11/17/19 14:39) Ondansetron Injection (Zofran Injectio (11/17/19 14:45) Pantoprazole Injection (Protonix Injecti (11/17/19 14:45) Chest 1 View, Ap/Pa Only (11/17/19 15:22) Medications Given in ED Current Medications Medications Dose Ordered Sig/Juan Miguel Route Start Time Stop Time Status Last Admin Dose Admin Al Hydrox/Mg Hydrox/Simethicone 30 ml ONCE ONCE PO 11/17/19 14:45 11/17/19 14:46 DC 11/17/19 15:20 30 ML Lidocaine HCl 10 ml ONCE ONCE PO 11/17/19 14:45 11/17/19 14:46 DC 11/17/19 15:20 10 ML Ondansetron HCl 4 mg ONCE ONCE IVP 11/17/19 14:45 11/17/19 14:46 DC 11/17/19 15:20 4 MG Pantoprazole 40 mg ONCE ONCE IV 11/17/19 14:45 11/17/19 14:46 DC 11/17/19 15:20 40 MG Vital Signs/I&O 11/17/19 13:52 Temp 35.2 Pulse 108 Resp 20 B/P (MAP) 118/77 (91) Pulse Ox 98 O2 Delivery Room Air Capillary Refill : Less Than 3 Seconds Blood Pressure Mean: 91 Departure Impression Primary Impression: Transient confusion Additional Impressions: GERD SYMPTOMS S/P RECENT CRANIOTOMY FOR BRAIN MASS AND INTRACRANIAL BLEED HX OF CAD WITH STENTS Disposition: 01 HOME, SELF-CARE Condition: Stable Departure-Patient Inst. Referrals: DUNIA SANTOS MD (PCP/Family) Primary Care Physician Patient Instructions: Acid Reflux (Gastroesophageal Reflux Disease), Adult (DC), Delirium (Confusion) (DC) Add. Discharge Instructions: CONTINUE YOUR REGULAR MEDICATIONS PRESCRIBED KEEP YOUR APPOINTMENT WITH DR. MULLIGAN THIS WEEK AND DR. NESBITT NEXT WEEK WELL ONCOLOGY AT All discharge instructions reviewed with patient and/or family. Voiced understanding. Scripts Pantoprazole Sodium (Protonix) 40 Mg Tablet. 40 MG PO DAILY, #15 TAB Prov: CLYDE MENENDEZ DO 11/17/19 CLYDE MENENDEZ DO Nov 17, 2019 15:02
[2019-11-17 15:05] LABS: BACTERIA,URINE TRACE /HPF
[2019-11-17 15:09] LABS: AMPHETAMINE SCREEN, URINE NEGATIVE (NEGATIVE); BARBITURATE SCREEN URINE NEGATIVE (NEGATIVE); BENZODIAZEPINES SCREEN URINE NEGATIVE (NEGATIVE); CANNABINOID SCREEN, URINE NEGATIVE (NEGATIVE); COCAINE SCREEN URINE NEGATIVE (NEGATIVE); METHADONE STAT NEGATIVE (NEGATIVE); METHAMPHETAMINE SCREEN URINE S NEGATIVE (NEGATIVE); OPIATE SCREEN URINE NEGATIVE (NEGATIVE); OXYCODONE STAT POSITIVE (NEGATIVE); PROPOXYPHENE STAT NEGATIVE (NEGATIVE); TRICYCLIC ANTIDEPRESSANTS SCRE NEGATIVE (NEGATIVE)
[2019-11-17 15:14] LABS: INR 0.9 (0.8-1.4)
[2019-11-17 15:24] LABS: ALANINE AMINOTRANSFERASE 33 U/L (0-55); ALBUMIN 4.2 GM/DL (3.2-4.5); ALKALINE PHOSPHATASE 74 U/L (40-136); AMYLASE 50 U/L (25-125); BILIRUBIN,TOTAL 0.4 MG/DL (0.1-1.0); BUN/CREATININE RATIO 17; CALCIUM 9.6 MG/DL (8.5-10.1); CARBON DIOXIDE 24 MMOL/L (21-32); CHLORIDE 101 MMOL/L (98-107); CREATININE SERUM 0.98 MG/DL (0.60-1.30); GFR ESTIMATED > 60; GLUCOSE 227 MG/DL (70-105); LIPASE 70 U/L (8-78); MAGNESIUM 1.7 MG/DL (1.6-2.4); POTASSIUM 3.2 MMOL/L (3.6-5.0); SODIUM 137 MMOL/L (135-145); TOTAL PROTEIN 7.2 GM/DL (6.4-8.2)
--- NOTE | 2019-11-17 15:38 | Diagnostic Imaging Report ---
INDICATION: History of brain tumor, status post craniotomy, now with new-onset weakness and confusion. TECHNIQUE: Multiple contiguous axial images were obtained through the brain without the use of intravenous contrast. Auto Exposure Controls were utilized during the CT exam to meet ALARA standards for radiation dose reduction. COMPARISON: Comparison made to 11/05/2019. FINDINGS: Compared to the prior study, the patient has undergone left posterior craniotomy. There is some residual air in the brain parenchyma at the operative site with a trace of residual blood products, not unexpected post surgery. No well-defined or large hematoma is seen. There is no subdural or epidural collection. Ventricles are nondilated. IMPRESSION: Expected postop changes status post tumor resection with some residual air and petechial blood products at the operative site. No significant mass effect or midline shift is seen. Dictated by: Dictated on workstation # [id number]
--- NOTE | 2019-11-17 16:03 | Diagnostic Imaging Report ---
EXAM: CHEST 1 VIEW, AP/PA ONLY. INDICATION: Altered mental status. COMPARISON: 11/05/2019. FINDINGS: Normal heart size and pulmonary vascularity. Implanted loop recorder. No dense consolidation, pleural effusion or pneumothorax. No acute osseous findings. No significant change. IMPRESSION: No acute cardiopulmonary findings. Dictated by: Dictated on workstation # [id number]
[2019-11-17] MEDS ORDERED: PANT40TA2 PO (16:14)
[2019-11-17 16:27] VITALS: BP 116/77
--- OUTSIDE RECORDS SUMMARY | 2019-11-26 07:00 | XMS REPORT | Encounter Summary ---
Author Author [facility] Organization [facility] Address Unknown Phone Unavailable Care Team Providers Care Production Control Supervisor Name Role Phone Sissy Kingsley MD PCP Reason for Visit * Reason Comments Navigation Assessment Encounter Details Care Team Description Date [place] [address] [place] [address] [phone] Navigation Assessment 11/13/2019 Telephone [facility] [address] [address] Social History Date Tobacco Use Types Packs/Day Years Used Current Every Day Smoker Cigarettes 35 Smokeless Tobacco: Never Used Sex Assigned at Date Recorded Not on file Industry Job Start Date Occupation Not on file Not on file Not on file Travel End Travel History Travel Start No recent travel history available. documented as of this encounter Functional Status Date of Assessment Functional Status Response 11/06/2019 Does the patient have a hearing impairment: No documented as of this encounter Miscellaneous Notes * Telephone Encounter - Chula Hudson RN - 11/13/2019 10:25 AM EMD SPECIAL EDUCATION TEACHER Neuro-Tumor Navigation Intake Assessment Document Patient Name: Benedicto Carrizales : 1965 Insurance: [facility] Medicaid Appointment Info: Future Appointments Date Time Provider Department Center 11/25/2019 1:30 PM Blanca Hernandez APRN-HR SHARED SERVICES CONSULTANT [facility] NeuroSurg 11/25/2019 3:00 PM Bernard Perales MD [facility] Exam 12/12/2019 1:30 PM Reyes Villareal MD [facility] 12/12/2019 2:00 PM Darion Christianson MD [facility] Radiati Diagnosis & Reason for Visit: Left parietal brain mass, 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 Physician Info: Referring Physician: Dr. Villareal Radiation Oncologist: Dr. Darion Christianson PCP: Dr. Sissy Kingsley Phone/ / [phone] Location of Films: IN HOUSE and PACS Location of Pathology: IN HOUSE History of Present Illness/Treatment Timeline: Benedicto Carrizales is a 54 y.o. male wi th PMH of atrial fibrillation, coronary artery disease, hypertension, obstructiv e sleep apnea and diabetes mellitus whose called EMS to transport the patie nt to the local emergency room for 2-3 week history of headaches and right eye v ision changes. The patient's reports that when the ambulance arrived, the p atbrenda was able to walk to the ambulance with a stumbling gait but was unable to put his coat on by himself. The patient was worked up in the ER to rule out str tanja. CT head showed acute hemorrhage in the left parietal and possibly occipital area with surrounding edema. Transfer to [facility] was initiated. The patient was admitted and surgical resection was performed on 11/11/[address] Villareal. Benedicto was discharged to home on 11/13/19. The patient's w nicole is disabled and reports that the patient is her primary caregiver. Imagin11/12/2019 MRI Head - IMPRESSION Left parieto-occipital necrotic mass resection. There is linear enhancement at the deep periatrial resection margin and similar surrounding FLAIR hyperintensities. 11/06/2019 MRI Head - Necrotic enhancing hemorrhagic mass in the left parieto-oc cipital lobe, 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 Less likely consideratio ns are metastasis or lymphoma. This extends to the left lateral ventricle ependy mal surface as well as the dural thickening overlying the left parietal convexit y suspicious for involvement. 11/06/2019 CTA Head - Moderate associated hypoattenuation within the left poste rior cerebral hemisphere, most compatible with edema. The degree of edema is muc h greater than expected from solely the presence of parenchymal hemorrhage, with underlying mass favored and associated vasogenic edema. There are areas of heidy ical thickening along the left cerebral hemisphere which may be related to infil trating tumor. Similar diffuse left cerebral sulcal effacement with mild 4 mm le ft to right midline shift. 11/05/2019 CT Head - Acute hemorrhage noted in the left parietal possibly portio ns of the occipital lobe with surrounding edema. Underlying mass not excluded, M RI recommended. Needs Assessment: Genetic Counseling: Genetic Assessment: No identified risk factors Nutrition: Recent Weight Loss Without Trying?: No Eating Poorly Due to Decreased Appetite?: No Score: Malnutrition Screening Tool (MST): 0 Additional Nutrition Assessment: Other (Comment)(pt states pt is trying to control blood sugar levels) Social & Financial: Social and Financial Assessment: Transportation;Caregiver concerns;Lack of socia l support Tobacco assessment last 30 days: Patient has used tobacco products within the st 30 days Social and Financial Intervention: Referral placed to Refiner Operator;Notified pro vider of current tobacco use status Spiritual & Emotional: Spiritual and Emotional Assessment: Reports feeling and/or sounds anxious, worri ed or irritable(spoke to pt ) Spiritual and Emotional Intervention: Emotional Support provided;Provided inform ation about available services Physical: Fall Risk: Impaired balance/mobility Physical needs: No needs identified Physical Needs Intervention: Patient encouraged to use phlebotomist associate services for appoin tment(s) Communication: Communication Barrier: No Onc Fertility: Onc Fertility Assessment: Not applicable Additional Education: Additional Education Documented: Yes Patient Education Education provided to: patient's spouse Are learners ready to learn?: Yes Topics Discussed Topics discussed: social work therapist;orientation to Cancer Center;community resourc es Ph # given to patient for follow up: Yes Education Details Educated by: telephone Ed time: 10 min Learner's response: The patient expressed understanding of what was explained to them, participated and agreed with the present plan.;The patient has received c ontact information and was instructed on how to contact us if questions or yudelka rns arise Referral Type: Hospital Discharge Comments: Spoke with patient's , Shira and provided instructions on locat ion of appointment with Dr. Perales. Patient lives in [place], [place] and repo rts that transportation has been arranged to bring patient and to [facility] for the appointment. SPECIAL EDUCATION TEACHER documented in this encounter Plan of Treatment Not on filedocumented as of this encounter Goals Goal Patient Associated Recent Progress Patient-Stat Aut hor Goal Type Problems ed? Smoking Cessation Lifestyle No Marjan Yang RN documented as of this encounter Visit Diagnoses Not on filedocumented in this encounter
--- OUTSIDE RECORDS SUMMARY | 2019-11-26 07:00 | XMS REPORT | Encounter Summary ---
Author Author [facility] Organization [facility] Address Unknown Phone Unavailable Care Team Providers Care Accident Investigator Name Role Phone Sissy Kingsley MD PCP Encounter Details Care Team Description Date [place] [address] [place] [address] [phone] Glioblastoma (HCC) (Primary Dx) 11/20/2019 Orders Only [facility] [address] [address] Social History Date Tobacco Use Types Packs/Day [...] impairment: No documented as of this encounter Plan of Treatment Date/Time Name Type Priority Associated Diag noses 11/11/2019 9:33 AM FOOD AND BEVERAGE ORDER CLERK MGMT PROMOTER METHYLATION Pathology Routine Glio blastoma (HCC) TUMOR documented as of this encounter Goals Goal Patient Associated Recent Progress Patient-Stat Aut hor Goal Type Problems ed? Smoking Cessation Lifestyle No Marjan Yang RN documented as of this encounter Visit Diagnoses Diagnosis Glioblastoma (HCC) - Primary Malignant neoplasm of brain, unspecifie d site documented in this encounter
--- OUTSIDE RECORDS SUMMARY | 2019-11-26 07:00 | XMS REPORT | Encounter Summary ---
Author Author [facility] Organization [facility] Address Unknown Phone Unavailable Care Team Providers Care Physical Therapist Name Role Phone Sissy Kingsley MD PCP Reason for Visit * Reason Comments Post Operative Visit follow-up Encounter Details Care Team Description Date Type Department Blanca Hernandez APRN-LABOR RELATIONS OR PERSONNEL NEGOTIATOR [address] [facility] [address] [place] [address] Encounter for staple removal (Primary Dx ) 11/25/2019 Office Visit [facility] [address] [place] [address] Social History Date Tobacco Use Types Packs/Day Years Used Current Every Day Smoker Cigarettes 35 Smokeless Tobacco: Never Used Sex Assigned at Date Recorded Not on file Industry Job Start Date Occupation Not on file Not on file Not on file Travel End Travel History Travel Start No recent travel history available. documented as of this encounter Last Filed Vital Signs Reading Time Taken Comments Vital Sign 120/72 11/25/2019 2:14 PM FUR DESIGNER Blood Pressure 99 11/25/2019 2:14 PM FUR DESIGNER Pulse 36.4 C (97.6 F) 11/25/2019 2:14 PM FUR DESIGNER Temperature - - Respiratory Rate - - Oxygen Saturation - - Inhaled Oxygen Concentration 83.9 kg (185 lb) 11/25/2019 2:14 PM FUR DESIGNER Weight 175.3 cm (5' 9") 11/25/2019 2:14 PM FUR DESIGNER Height 27.32 11/25/2019 2:14 PM FUR DESIGNER Body Mass Index documented in this encounter Functional Status Date of Assessment Functional Status Response 11/06/2019 Does the patient have a hearing impairment: No documented as of this encounter Progress Notes * Blanca Hernandez APRN-LABOR RELATIONS OR PERSONNEL NEGOTIATOR - 11/25/2019 1:30 PM FUR DESIGNER Neurosurgery Clinic Follow-up Patient Active Problem List Diagnosis Date Noted Hypertension, essential Hyperlipidemia, mixed Diabetes mellitus (HCC) Current smoker COPD (chronic obstructive pulmonary disease) (HCC) Chronic atrial fibrillation (HCC) CAD (coronary artery disease), [place] coronary artery Glioblastoma (HCC) 11/10/2019 Left-sided nontraumatic intracerebral hemorrhage (HCC) 11/06/2019 Other headache syndrome 11/06/2019 Mr. Carrizales presents today for staple removal s/p LEFT PARIETAL CRANIOTOMY FOR TU MOR RESECTION (Left) STEREOTACTIC COMPUTER-ASSISTED CRANIAL PROCEDURE - INTRADURAL on 11/11/[address] Maykel bañuelos. Pathology consistent with: Glioblastoma, WHO grade IV. He completed his dexame thasone taper and post op Keppra today. He reports he is feeling well. He denies any incisional pain. He is eating/dri nking well. Denies constipation. Physical Exam Alert/Fully Oriented Neuro Intact and Stable Motor/Strength 5/5 Gait Steady Incision edges well approximated. Small amount redness at superior end of incis ion. No swelling or drainage. Mr. Carrizales presents today for staple removal. [place] removed without difficulty . Discussed wound care. Incision does have some redness at superior end. We discussed I do not believe he has an infection, but I will place him on cepha lexin as prophylaxis. He should call us if he notes any further redness or deve lops any swelling/drainage. He and his voice understanding. [facility]. We will assist them in r escheduling in a timely manner. He will return on 12/12/19. Please call [phone] with questions or concern RITCHIE Rodriguez DESIGNER documented in this encounter Plan of Treatment Not on filedocumented as of this encounter Goals Goal Patient Associated Recent Progress Patient-Stat Aut hor Goal Type Problems ed? Smoking Cessation Lifestyle No Marjan Yang RN documented as of this encounter Visit Diagnoses Diagnosis Encounter for staple removal - Primary Encounter for removal of sutures documented in this encounter
--- OUTSIDE RECORDS SUMMARY | 2019-11-26 07:00 | XMS REPORT | Encounter Summary ---
Author Author [facility] Organization [facility] Address Unknown Phone Unavailable Care Team Providers Care Loan Associate Name Role Phone Sissy Kingsley MD PCP Reason for Visit * Reason Comments Surgical Followup Encounter Details Care Team Description Date Type Department Reyes Villareal MD [address] [facility] [address] [place] [address] Surgical Followup 11/17/[address] [facility] [address] [place] [address] Social History Date Tobacco Use [...] encounter Miscellaneous Notes * Telephone Encounter - Amnadeep Carrizalessha - 11/17/2019 12:03 PM LIBRARY PAGE Patient's Shira contacted clinic stating that patient needs a home health nurse being that she cannot take care of patient properly. She also stated that patient has not been eating or drinking well and has continued to have heart bu rn. I discussed with patient's that I would have to speak with someone here in the clinic in regards to getting set up with a home health nurse and speak w ith our nurse practitioner and return her phone call. After speaking with nurse practitioner I called patient's back to get more information regarding symptoms. Patient has been experiencing confusion since ye sterday and also vomiting. I asked if they have used any OTC medications for hea rt burn and she stated that patient has taken OTC meds and they have not helped and he has also drank some milk to see if it would help and it has not. I then i nstructed patient's that he should be taken to the local ER to get evaluate d for the confusion and also the heartburn. ARY PAGE documented in this encounter Plan of Treatment Not on filedocumented as of this encounter Goals Goal Patient Associated Recent Progress Patient-Stat Aut hor Goal Type Problems ed? Smoking Cessation Lifestyle No Marjan Yang , RN documented as of this encounter Visit Diagnoses Not on filedocumented in this encounter
--- OUTSIDE RECORDS SUMMARY | 2019-11-26 07:00 | XMS REPORT | Encounter Summary ---
Author Author [facility] Organization [facility] Address Unknown Phone Unavailable Care Team Providers Care Fig Bar Machine Operator Name Role Phone Sissy Kingsley MD PCP Encounter Details Care Team Description Date Type Department Jana Adkins 11/18/[address] [id number] Social History Date Tobacco Use Types Packs/Day [...] as of this encounter Progress Notes * Jana Adkins - 11/18/2019 12:04 PM AUTOMOTIVE ENGINEER Social Work Progress Note Plan. Community Based Resources (In-Home) Assessment. FARSHAD Hudson notified Social Work by e-mail indicating the patient's spouse - Shira - is seeking intermediary in-home assistance with medication ad ministration and bathing for the patient. FARSHAD Hudson indicated arrangements hav e been made through their health insurance, yet it will be several weeks before in-home arrangements are initiated. The patient experienced a brain mass, which precipitated a surgical intervention. The patient's EMR reflected the patient wa s discharged home on November 14, with outpatient rehabilitation. Intervention. Social Work conducted a chart review the ascertain pertinent infor malathi. Subsequently, Social Work contacted [employer], the patient's health insurance provider, to learn of available benefit options. Vivi - Brand Planner - with [employer] informed Social Work she has been assigned to the patient 's case. Vivi indicated she will contact the patient and Shira - again - to a ssess their needs. Vivi indicated the patient could be eligible for Home and [employer] Services. Services are contingent upon assessment. Vivi's contact information is [phone]. Update @ 1330 PM. Vivi contacted Social Work to indicate the patient and Keerthi bui will receive case management services through [employer]. Vivi informed Social Wor norbert, the patient's primary care doctor will order home health. Viiv also informed Social Work she will complete a wavier for Home and Community Based Services. Social Work provided an updated to FARSHAD Hudson. Jana Adkins, [facility] [place] Outpatient Social Work [phone] MOTIVE ENGINEER documented in this encounter Plan of Treatment Not on filedocumented as of this encounter Goals Goal Patient Associated Recent Progress Patient-Stat Aut hor Goal Type Problems ed? Smoking Cessation Lifestyle No Marjan Yang RN documented as of this encounter Visit Diagnoses Not on filedocumented in this encounter
--- OUTSIDE RECORDS SUMMARY | 2019-11-26 07:00 | XMS REPORT | Encounter Summary ---
Author Author [facility] Organization [facility] Address Unknown Phone Unavailable Care Team Providers Care Consulting Intern Name Role Phone Sissy Kingsley MD PCP Reason for Visit * Reason Comments Surgical Followup Encounter Details Care Team Description Date Type Department Reyes Villareal MD [address] Orth[facility] [address] [place] [address] Surgical Followup 11/19/2019 Telephone The [facility] [address] [place] [phone] Social History Date Tobacco Use [...] encounter Miscellaneous Notes * Telephone Encounter - Sara Villafana RN - 11/19/2019 2:27 PM UNDERWRITER Spoke with patient's Shira today regarding recovery. Per chart she has c alled the clinic with concerns of caring for patient and needing Home Health ord ers. She states she did receive home health orders yesterday and they should be coming out to the home tomorrow. She states he is doing better today, he has not vomited, confusion is improved. They have a appointment tomorrow with his c ardiologist regarding his BP management, she states it has been running high but unsure of last value. Shira states incision looks great, and his pain has be en easily managed with medications. She states he is having regular bowel movem ents and they are continuing stool softeners while using Oxycodone. She states he is mobilizing fine and getting up several times a day. She denies any needs today, encouraged to call back with any changes or concerns. She is aware of [facility] appointments and has our clinic contact. Sara Villafana RN Clinical Nurse Coordinator Neurosurgery Office: [phone] RWRITER documented in this encounter Plan of Treatment Not on filedocumented as of this encounter Goals Goal Patient Associated Recent Progress Patient-Stat Aut hor Goal Type Problems ed? Smoking Cessation Lifestyle No Marjan Yang RN documented as of this encounter Visit Diagnoses Not on filedocumented in this encounter
--- OUTSIDE RECORDS SUMMARY | 2019-11-26 07:00 | XMS REPORT | Encounter Summary ---
Author Author [facility] Organization [facility] Address Unknown Phone Unavailable Care Team Providers Care Streetcar Repairer Helper Name Role Phone Sissy Kingsley MD PCP Encounter Details Care Team Description [place] [address] [place] [address] [phone] Glioblastoma (HCC) (Primary Dx) 11/20/2019 Orders Only [facility] [address] [phone] Social History Date Tobacco Use Types Packs/Day [...] as of this encounter Plan of Treatment Not on filedocumented as of this encounter Goals Goal Patient Associated Recent Progress Patient-Stat Aut hor Goal Type Problems ed? Smoking Cessation Lifestyle No Marjan Yang , RN documented as of this encounter Visit Diagnoses Diagnosis Glioblastoma (HCC) - Primary Malignant neoplasm of brain, unspecifie d site documented in this encounter
--- OUTSIDE RECORDS SUMMARY | 2019-11-26 07:00 | XMS REPORT | Encounter Summary ---
Author Author [facility] Organization [facility] Address Unknown Phone Unavailable Care Team Providers Care Cigar Making Machine Operator Name Role Phone Sissy Kingsley MD PCP Reason for Visit * Reason Comments Medication Refill Encounter Details Care Team Description Date Type Department Blanca Hernandez, CLINICAL TEAM MANAGER-SUPERVISOR DIE CASTING [address] [facility] Orth[facility] [address] [place], [place] [id number] 11/24/2019 Refill The [facility] [address] [place] [phone] Social History Date Tobacco Use Types Packs/Day [...] Problems ed? Smoking Cessation Lifestyle No Marjan aYng , RN documented as of this encounter Visit Diagnoses Not on filedocumented in this encounter
--- OUTSIDE RECORDS SUMMARY | 2019-11-26 07:00 | XMS REPORT | Clinical Summary ---
Author Author [facility] Organization [facility] Address Unknown Phone Unavailable Care Team Providers Care Word Processor Operator Name Role Phone Ssisy Kingsley MD PCP Source Comments Some departments are not documenting in the electronic medical record. If you d o not see the information that you expected, contact Release of Information in [facility] Information Management department at [phone] for further assistan ce in locating additional records.[facility] Allergies Comments Active Allergy Reactions Severity Noted Date Bee Sting Kit ANAPHYLAXIS High 11/06/2019 Bumble Bee ANAPHYLAXIS High 11/09/2019 Medications End Date Status Medication Sig Dispensed Refills Start Date Active metoprolol XL (TOPROL XL) Take 50 mg by 0 50 mg extended release mouth daily. tablet Active atorvastatin (LIPITOR) 80 Take 80 mg by 0 mg tablet mouth daily. Active amLODIPine (NORVASC) 2.5 Take 2.5 mg 0 mg tablet by mouth daily. Active budesonide-formoteroL Inhale 2 0 (SYMBICORT HFA) 160-4.5 puffs by mcg/actuation inhalation mouth into the lungs twice daily. Active albuterol sulfate (PROAIR Inhale 2 0 HFA) 90 mcg/actuation puffs by aerosol inhaler mouth into the lungs every 6 hours as needed for Wheezing or Shortness of Breath. Shake well before use. Active diclofenac (VOLTAREN) 1 % Apply 4 g 0 topical gel topically to affected area as Needed. Active liraglutide (VICTOZA) 0.6 Inject 1.8 mg 0 mg/0.1 mL (18 mg/3 mL) under the injection pen skin daily. Active insulin glargine (LANTUS) Inject 40 0 100 unit/mL vial Units under the skin at bedtime daily. Active isosorbide mononitrate SR Take 60 mg by 0 (IMDUR) 60 mg tablet mouth every morning. Active nitroglycerin (NITROSTAT) Place 0.4 mg 0 0.4 mg tablet under tongue every 5 minutes as needed for Chest Pain. Max of 3 tablets, call 911. Active metFORMIN (GLUCOPHAGE) Take 1,000 mg 0 1,000 mg tablet by mouth twice daily with meals. Active EPINEPHrine (EPIPEN Inject 0.3 mg 0 2-VARUN) 1 mg/mL injection into the pen (2-Pack) muscle once as needed. Inject 0.3 mg (1 Pen) into thigh if needed for anaphylactic reaction. May repeat in 5-15 minutes if needed. Active clopiDOGrel (PLAVIX) 75 Take one 90 tablet 0 mg tablet tablet by 0 mouth daily. Continue to hold this medication for 10 days after surgery. May resume on 11/21/2019. Active apixaban (ELIQUIS) 5 mg Take one 60 tablet 0 tablet tablet by 0 mouth twice daily. Hold for 4 weeks after surgery. May resume this medication on 12/09/2019. Active acetaminophen (TYLENOL) Take two 0 500 mg tablet tablets by 0 mouth every 6 hours as needed. Max of 4,000 mg of acetaminophen in 24 hours. Active dexAMETHasone (DECADRON) Taper 26 tablet 0 0 2 mg tablet schedule: 4 0 mg every 8 hours for 2 days, then 4 mg every 12 hours for 2 days, then 2 mg every 12 hours for 2 days, then 2 mg every day for 2 days, then stop Active nicotine (NICODERM CQ Apply one 28 patch 0 STEP 2) 14 mg/day patch to top 0 patchIndications: smoking of skin as cessation directed daily. Rotate patch location. Indications: stop smoking Active nicotine polacrilex Place one 2 box 0 (NICORETTE) 4 mg gum each inside 0 cheek (side of mouth) every 2 hours as needed. Chew to soften and park in mouth between lip and gum. May use 1 piece per hour, not to exceed 24 per day for 12 weeks. May be used longer, if needed. Active senna/docusate Take one 0 (SENOKOT-S) 8.6/50 mg tablet by 0 tablet mouth twice daily. Active aspirin 81 mg chewable Chew one 90 tablet 0 tablet tablet by 0 mouth daily. May start aspirin on 11/14/2019. Continue Aspirin until you are able to resume taking plavix. Take with food. Active oxyCODONE (ROXICODONE) 5 Take one 56 tablet 0 0 mg tablet tablet to 0 three tablets by mouth every 3 hours as needed Active cephalexin (KEFLEX) 500 Take one 28 capsule 0 mg capsule capsule by 0 mouth four times daily. 11/13/2019 Discontinued (Reorder) clopiDOGrel (PLAVIX) 75 Take 75 mg by 0 mg tablet mouth daily. 11/06/2019 Discontinued (Removed from P TA Med List) metFORMIN (GLUCOPHAGE) Take 1,000 mg 0 1,000 mg tablet by mouth twice daily with meals. 11/13/2019 Discontinued (Reorder) apixaban (ELIQUIS) 5 mg Take 5 mg by 0 tablet mouth twice daily. 11/25/2019 levETIRAcetam (KEPPRA) Take one 24 tablet 0 500 mg tablet tablet by 0 mouth twice daily for 12 days. 11/24/2019 Discontinued (Reorder) oxyCODONE (ROXICODONE) 5 Take one 56 tablet 0 0 mg tablet tablet to 0 three tablets by mouth every 3 hours as needed Active Problems Problem Noted Date Glioblastoma 11/10/2019 Left-sided nontraumatic intracerebral hemorrhage Other headache syndrome 11/06/2019 Hypertension, essential Hyperlipidemia, mixed Diabetes mellitus Current smoker COPD (chronic obstructive pulmonary dis ease) Chronic atrial fibrillation CAD (coronary artery disease), [place] c oronary artery Resolved Problems Problem Noted Date Resolved Date Vasogenic edema 11/06/2019 11/25/2019 Encounters Care Team Description Date Type Last PullerBlanca Hernandez APRN-GAVIOTA Encounter for staple removal (Primary Dx ) 11/25/2019 Office Visit Neurosurgery Blanca Hernandez APRN-NP 11/24/2019 Refill Neurosurgery Bernard Perales MD Glioblastoma (HCC) (Primary Dx) 11/20/2019 Orders Only Oncology Bernard Perales MD Glioblastoma (HCC) (Primary Dx) 11/20/2019 Orders Only Oncology Gerardo Nesbitt MD Surgical Followup 11/19/2019 Telephone Neurosurgery Jana Adkins 11/18/2019 Clinical Neurosurgery Support Gerardo Nesbitt MD Surgical Followup 11/17/2019 Telephone Neurosurgery Bernard Perales MD Navigation Assessment 11/13/2019 Telephone Oncology Gerardo Nesbitt MD LEFT PARIETAL CRANIOTOMY FOR TUMOR RESEC TION 11/11/2019 Surgery Jennifer Bennett MD 11/11/2019 Anesthesia Event Darion Christianson MD Brain tumor (HCC) 11/10/2019 Office Visit Radiation Therapy KieraMelissa 11/10/2019 Documentation Radiation Therapy Gerardo Nesbitt MD Surgical Followup 11/07/2019 Telephone Neurosurgery Jimmie Cobb MD Shah, Kushal J, MD Left-sided nontraumatic intracerebral he morrhage (HCC) 11/06/2019 Hospital - Encounter 11/13/2019 11/05/2019 Hospital Radiology Encounter 11/05/2019 Hospital Radiology Encounter from Last 3 Months Social History Date Tobacco Use Types Packs/Day Years Used Current Every Day Smoker Cigarettes 35 Smokeless Tobacco: Never Used Tobacco Cessation: Ready to Quit: No; Co unseling Given: No Sex Assigned at Date Recorded Not on file Industry Job Start Date Occupation Not on file Not on file Not on file Travel End Travel History Travel Start No recent travel history available. Last Filed Vital Signs Reading Time Taken Comments Vital Sign 120/72 11/25/2019 2:14 PM SHIRT PRESSER Blood Pressure 99 11/25/2019 2:14 PM SHIRT PRESSER Pulse 36.4 C (97.6 F) 11/25/2019 2:14 PM SHIRT PRESSER Temperature - - Respiratory Rate 99% 11/13/2019 8:40 AM SHIRT PRESSER Oxygen Saturation - - Inhaled Oxygen Concentration 83.9 kg (185 lb) 11/25/2019 2:14 PM SHIRT PRESSER Weight 175.3 cm (5' 9") 11/25/2019 2:14 PM SHIRT PRESSER Height 27.32 11/25/2019 2:14 PM SHIRT PRESSER Body Mass Index Plan of Treatment Health Maintenance Due Date Last Done Comments DTAP/TDAP VACCINES (1 - 1978 Tdap) HIV SCREENING 1982 PHYSICAL (COMPREHENSIVE) 1985 EXAM COLORECTAL CANCER 2017 SCREENING SHINGLES RECOMBINANT 2017 VACCINE (1 of 2) INFLUENZA VACCINE 05/08/2019 Goals Goal Patient Associated Recent Progress Patient-Stat Aut hor Goal Type Problems ed? Smoking Cessation Lifestyle No Marjan Yang RN Implants Device Identifier Shelf Expiration Date Model / Serial / L ot Implanted Type Area Manufactur er Loop Recorder-11/11/2016 Loop Left: Chest Implanted: 11/11/2016 (Quantity not Recorder on file) [id number] / NA / NA Plate Bone Level One Medium Curve Left: Skull WILD DONALDSON Craniofacial Bur Hole - Sna LP Implanted: Qty: 2 on 11/11/2019 by Gerardo Nesbitt MD at [facility] [id number] / NA / NA Plate Bone Level One Long Curve Left: Skull ANDREW CANALESIN Craniofacial Bur Hole Ultra - Sna LP Implanted: Qty: 1 on 11/11/2019 by Gerardo Nesbitt MD at [facility] [id number] / NA / NA Plate Bone Level One Long Left: Skull MARTÍN Craniofacial 2 Hole Ultra Low - Sna LP Implanted: Qty: 1 on 11/11/2019 by Gerardo Nesbitt MD at [facility] [id number] / NA / NA Screw Bone Level One Titanium Left: Skull LESLYE TIN Craniomaxillofacial Drill Free - LP Sna Implanted: Qty: 11 on 11/11/2019 by Gerardo Nesbitt MD at [facility] Procedures Comments Procedure Name Priority Date/Time Associated Diag nosis POC GLUCOSE 11/13/2019 8:03 AM SHIRT PRESSER HC PHOSPHOROUS, SERUM Routine 11/13/2019 4:19 AM SHIRT PRESSER HC MAGNESIUM Routine 11/13/2019 4:19 AM SHIRT PRESSER HC CBC,AUTOMATED Routine 11/13/2019 4:19 AM SHIRT PRESSER POC GLUCOSE 11/12/2019 10:07 PM SHIRT PRESSER POC GLUCOSE 11/12/2019 5:44 PM SHIRT PRESSER POC GLUCOSE 11/12/2019 11:24 AM SHIRT PRESSER POC GLUCOSE 11/12/2019 6:24 AM SHIRT PRESSER HC PHOSPHOROUS, SERUM Routine 11/12/2019 3:40 AM SHIRT PRESSER HC MAGNESIUM Routine 11/12/2019 3:40 AM SHIRT PRESSER HC CBC,AUTOMATED Routine 11/12/2019 3:40 AM SHIRT PRESSER MRI HEAD WO/W CONTRAST Routine 11/12/2019 12:35 AM SHIRT PRESSER POC GLUCOSE 11/11/2019 9:34 PM SHIRT PRESSER BASIC METABOLIC PANEL STAT 11/11/2019 5:40 PM SHIRT PRESSER POC GLUCOSE 11/11/2019 5:39 PM SHIRT PRESSER POC GLUCOSE 11/11/2019 12:33 PM SHIRT PRESSER POC GLUCOSE 11/11/2019 10:08 AM SHIRT PRESSER ANESTHESIA ARTERIAL LINE Routine 11/11/2019 INSERTION 9:46 AM SHIRT PRESSER NOTES 11/11/2019 9:33 AM SHIRT PRESSER HC FROZEN SECTION #1 Routine 11/11/2019 Nontrauma tic hemorrhage 9:24 AM SHIRT PRESSER of left cerebral hemisphere (HCC) MICROSURGICAL TECHNIQUES 11/11/2019 Nontraumatic hemorrhage - REQUIRING OPERATING 8:00 AM SHIRT PRESSER of left cerebra l MICROSCOPE USE hemisphere (HCC) STEREOTACTIC 11/11/2019 Nontraumatic hemorr marlon COMPUTER-ASSISTED CRANIAL 8:00 AM SHIRT PRESSER of left cer ebral PROCEDURE - INTRADURAL hemisphere (HCC) CRANIECTOMY/ BONE FLAP 11/11/2019 Nontraumatic h emorrhage CRANIOTOMY EXCISION 8:00 AM SHIRT PRESSER of left cerebral SUPRATENTORIAL BRAIN hemisphere (HCC) TUMOR POC GLUCOSE 11/11/2019 7:19 AM SHIRT PRESSER POC GLUCOSE 11/11/2019 6:14 AM SHIRT PRESSER HC PLATELET P2Y12 Routine 11/11/2019 RESPONSE 4:18 AM SHIRT PRESSER HC BASIC METABOLIC PANEL Routine 11/11/2019 4:18 AM SHIRT PRESSER HC CBC,AUTOMATED Routine 11/11/2019 4:18 AM SHIRT PRESSER POC GLUCOSE 11/10/2019 10:29 PM SHIRT PRESSER POC GLUCOSE 11/10/2019 6:06 PM SHIRT PRESSER POC GLUCOSE 11/10/2019 11:20 AM SHIRT PRESSER HC BLOOD TYPING, ABO 11/10/2019 CONFIRM 91 9:33 AM SHIRT PRESSER HC ABO GROUP Routine 11/10/2019 9:00 AM SHIRT PRESSER POC GLUCOSE 11/10/2019 6:17 AM SHIRT PRESSER HC PLATELET P2Y12 Routine 11/10/2019 RESPONSE 6:16 AM SHIRT PRESSER HC BASIC METABOLIC PANEL Routine 11/10/2019 2:47 AM SHIRT PRESSER HC CBC,AUTOMATED Routine 11/10/2019 2:47 AM SHIRT PRESSER POC GLUCOSE 11/09/2019 10:01 PM SHIRT PRESSER POC GLUCOSE 11/09/2019 4:23 PM SHIRT PRESSER POC GLUCOSE 11/09/2019 11:56 AM SHIRT PRESSER POC GLUCOSE 11/09/2019 6:50 AM SHIRT PRESSER HC BASIC METABOLIC PANEL Routine 11/09/2019 4:00 AM SHIRT PRESSER HC CBC,AUTOMATED Routine 11/09/2019 4:00 AM SHIRT PRESSER POC GLUCOSE 11/09/2019 1:46 AM SHIRT PRESSER POC GLUCOSE 11/08/2019 10:01 PM SHIRT PRESSER POC GLUCOSE 11/08/2019 6:44 PM SHIRT PRESSER POC GLUCOSE 11/08/2019 4:59 PM SHIRT PRESSER POC GLUCOSE 11/08/2019 12:52 PM SHIRT PRESSER POC GLUCOSE 11/08/2019 6:52 AM SHIRT PRESSER HC BASIC METABOLIC PANEL Routine 11/08/2019 4:08 AM SHIRT PRESSER HC CBC,AUTOMATED Routine 11/08/2019 4:08 AM SHIRT PRESSER POC GLUCOSE 11/08/2019 4:05 AM SHIRT PRESSER POC GLUCOSE 11/07/2019 9:03 PM SHIRT PRESSER POC GLUCOSE 11/07/2019 5:40 PM SHIRT PRESSER POC GLUCOSE 11/07/2019 12:45 PM SHIRT PRESSER HC CALCIUM IONIZED Routine 11/07/2019 12:39 PM SHIRT PRESSER POC GLUCOSE 11/07/2019 7:00 AM SHIRT PRESSER POC GLUCOSE 11/07/2019 4:48 AM SHIRT PRESSER HC CALCIUM IONIZED Routine 11/07/2019 4:43 AM SHIRT PRESSER HC MAGNESIUM Routine 11/07/2019 4:43 AM SHIRT PRESSER HC PHOSPHOROUS, SERUM Routine 11/07/2019 4:43 AM SHIRT PRESSER HC BASIC METABOLIC PANEL Routine 11/07/2019 4:43 AM SHIRT PRESSER HC CBC,AUTOMATED Routine 11/07/2019 4:43 AM SHIRT PRESSER POC GLUCOSE 11/06/2019 9:54 PM SHIRT PRESSER HC PLATELET P2Y12 LUIS FELIPE 11/06/2019 RESPONSE 8:15 PM SHIRT PRESSER POC GLUCOSE 11/06/2019 7:[address] ABD/PELV W CONTRAST Routine 11/06/2019 6:[address] CHEST W CONTRAST Routine 11/06/2019 6:38 PM SHIRT PRESSER MRI HEAD WO/W CONTRAST Routine 11/06/2019 6:20 PM SHIRT PRESSER HC UREA NITROGEN-URINE Routine 11/06/2019 1:10 PM SHIRT PRESSER HC CREATININE-URINE Routine 11/06/2019 1:10 PM SHIRT PRESSER HC OSMOLALITY-URINE Routine 11/06/2019 1:10 PM SHIRT PRESSER HC SODIUM-URINE Routine 11/06/2019 1:10 PM SHIRT PRESSER POC GLUCOSE 11/06/2019 12:22 PM SHIRT PRESSER HC OSMOLALITY;BLOOD Routine 11/06/2019 11:30 AM SHIRT PRESSER 2-D + DOPPLER Routine 11/06/2019 ECHOCARDIOGRAM 9:56 AM SHIRT PRESSER POC GLUCOSE 11/06/2019 7:43 AM SHIRT PRESSER CTA HEAD WO/W CONTR+POST STAT 11/06/2019 PRO 5:57 AM SHIRT PRESSER HC PHOSPHOROUS, SERUM STAT 11/06/2019 4:31 AM SHIRT PRESSER HC MAGNESIUM STAT 11/06/2019 4:31 AM SHIRT PRESSER HC CALCIUM IONIZED STAT 11/06/2019 4:31 AM SHIRT PRESSER HC COMPREHENSIVE STAT 11/06/2019 METABOLIC PANEL 4:31 AM SHIRT PRESSER HC HEMOGLOBIN A1C Routine 11/06/2019 4:31 AM SHIRT PRESSER HC Routine 11/06/2019 LIPID-5:CHOL/TRG/HDL/LDL+ 4:31 AM SHIRT PRESSER VLDL HC TROPONIN-I STAT 11/06/2019 4:31 AM SHIRT PRESSER HC PTT(APTT) STAT 11/06/2019 4:31 AM SHIRT PRESSER HC PT(INR) STAT 11/06/2019 4:31 AM SHIRT PRESSER HC CBC W/ AUTOMATED DIFF STAT 11/06/2019 4:31 AM SHIRT PRESSER CONSULT IV THERAPY TEAM Routine 11/06/2019 4:24 AM SHIRT PRESSER ECG 12-LEAD STAT 11/06/2019 4:02 AM SHIRT PRESSER ECG-SCAN 11/06/2019 12:[address] HEAD EXTERNAL IMAGING Routine 11/05/2019 12:05 AM SHIRT PRESSER GENERAL RAD CHEST Routine 11/05/2019 EXTERNAL IMAGING 12:00 AM SHIRT PRESSER from Last 3 Months Results * POC GLUCOSE (11/13/2019 8:03 AM SHIRT PRESSER) Only the most recent of 35 results within the time period is included. Pathologist [facility] Glucose, POC 195 (H) 70 - 100 MG/DL MAIN LAB Specimen Performing Organization Address [facility] one Number MAIN LAB [address] [place] [address] * CBC (11/13/2019 4:19 AM SHIRT PRESSER) Only the most recent of 7 results within the time period is included. [facility] White Blood 11.7 (H) 4.5 - 11.0 K/UL MAIN LAB Cells RBC 5.08 4.4 - 5.5 M/UL [facility] MAIN LAB Hemoglobin 13.8 13.5 - 16.5 GM/DL [facility] MAIN LAB Hematocrit 42.1 40 - 50 % MAIN LAB MCV 82.8 80 - 100 FL MAIN LAB MCH 27.1 26 - 34 PG MAIN LAB MCHC 32.7 32.0 - 36.0 G/DL MAIN LAB RDW 14.8 11 - 15 % [facility] MAIN LAB Platelet Count 245 150 - 400 K/UL MAIN LAB MPV 8.2 7 - 11 FL MAIN LAB Specimen Blood Performing Organization Address [facility] one Number MAIN LAB [address] [place] [address] * PHOSPHORUS (11/13/2019 4:19 AM SHIRT PRESSER) Only the most recent of 4 results within the time period is included. [facility] Phosphorus 3.6Comment: NOTE NEW REFERENCE 2.0 - 4.5 MG/DL MAIN LAB RANGES Specimen Blood Performing Organization Address [facility] one Number MAIN LAB [address] [place] [address] * MAGNESIUM (11/13/2019 4:19 AM SHIRT PRESSER) Only the most recent of 4 results within the time period is included. Magnesium 2.1 1.6 - 2.6 mg/dL [facility] MAIN LAB Specimen Blood Performing Organization Address City/State/Zipcode Ph one Number MAIN LAB [address] [place] [address] * MRI HEAD WO/W CONTRAST (11/12/2019 12:35 AM SHIRT PRESSER) Only the most recent of 2 results within the time period is included. Specimen Impressions Performed At Left parieto-occipital necrotic mass resection. There is linear enhancement at [facility] RAD RESULTS the deep periatrial resection margin an d similar surrounding FLAIR hyperintensities. Finalized by Topher Sanchez M.D. on 11/12 8:31 AM. Dictated by Topher Sanchez M.D. on 11/12/2019 8:10 AM. Narrative Performed At EXAM: MRI BRAIN [facility] RAD RESULTS HISTORY: Status post resection of left parieto-occipital mass, TECHNIQUE: Multiplanar and multisequenc e MR imaging of the head was performed. This was done both before and after the administration of MultiHance contrast. COMPARISON: MRI brain 11/06/2019 FINDINGS: Interval left parietal craniotomy for l eft parietal occipital lobe necrotic enhancing mass resection. There is an i ndeterminate complex blood products, fluid, cytotoxic edema, and gas within the operative cavity. There is some area of rim enhancement at the inferior and deep resection margin approaching the periatrial border (series 16 image 83). There are confluent FLAIR hyperintensities at the deep resection margin within the parietal lobe and extending to the retrolenticular white matter and posterior temporal lobe which are not significantly changed. No midline shift or herniation. No inte rval ventricular enlargement. Diffuse pachymeningeal enhancement, likely post operative. Major intracranial flow voids are preserved. Procedure Note Interface, Radiant Results - 11/12/2019 8:35 AM SHIRT PRESSER EXAM: MRI BRAIN HISTORY: Status post resection of left parieto-occipital mass, TECHNIQUE: Multiplanar and multisequence MR imaging of the head was performed. This was done both before and after the administration of MultiHance contrast. COMPARISON: MRI brain 11/06/2019 FINDINGS: Interval left parietal craniotomy for left parietal occipital lobe necrotic enhancing mass resection. There is an indeterminate complex blood products, fluid, cytotoxic edema, and gas within the operative cavity. There is some area of rim enhancement at the inferior and deep resection margin approaching the periatrial border (series 16 image 83). There are confluent FLAIR hyperintensities at the deep resection margin within the parietal lobe and extending to the retrolenticular white matter and posterior temporal lobe which are not significantly changed. No midline shift or herniation. No interval ventricular enlargement. Diffuse pachymeningeal enhancement, likely postoperative. Major intracranial flow voids are preserved. IMPRESSION Left parieto-occipital necrotic mass resection. There is linear enhancement at the deep periatrial resection margin and similar surrounding FLAIR hyperintensities. Finalized by Topher Sanchez M.D. on 11/12/2019 8:31 AM. Dictated by Topher Sanchez M.D. on 11/12/2019 8:10 AM. Performing Organization Address City/State/[facility] Ph one Number [facility] RAD RESULTS * BASIC METABOLIC PANEL (11/11/2019 5:40 PM SHIRT PRESSER) Only the most recent of 6 results within the time period is included. Sodium 137 137 - 147 MMOL/L [facility] MAIN LAB Potassium 4.1 3.5 - 5.1 MMOL/L [facility] MAIN LAB Chloride 105 98 - 110 MMOL/L [facility] MAIN LAB CO2 22 21 - 30 MMOL/L [facility] MAIN LAB Anion Gap 10 3 - 12 [facility] MAIN LAB Glucose 214 (H) 70 - 100 MG/DL [facility] MAIN LAB Blood Urea 17 7 - 25 MG/DL [facility] MAIN LAB Nitrogen Creatinine 0.76 0.4 - 1.24 MG/DL [facility] MAIN LAB Calcium 8.0 (L) 8.5 - 10.6 MG/DL [facility] MAIN LAB eGFR Non >60 >60 mL/min [facility] MAIN LAB Comment: Indian The eGFR is not validated f or use in drug dosing adjustments. Continue to use estimated creatinine clearance per dosing reference text. Please contact the Clinical Pharmacist for questions. eGFR >60 >60 mL/min [facility] MAIN LAB Indian Comment: The eGFR is not validated for use in drug dosing adjustments. Continue to use estimated creatinine clearance per dosing reference text. Please contact the Clinical Pharmacist for questions. Specimen Blood Performing Organization Address City/[facility] Ph one Number [facility] MAIN LAB [address] [place] [address] * A-LINE INSERTION (11/11/2019 9:46 AM SHIRT PRESSER) Narrative Performed At Carlos Manuel Funk MD 11/11/2019 9:46 AM Anesthesia Procedure: Arterial Line Allen cement A-LINE INSERTION Date/Time: 11/11/2019 8:35 AM Patient location: OR Indications: hemodynamic monitoring Preprocedure checklist performed: 2 pat ient identifiers, risks & benefits discussed, patient evaluated, timeout p erformed, consent obtained, patient being monitored and sterile drape Sterile technique: - Proper hand washing - Cap, mask - Sterile gloves - Skin prep for antisepsis Arterial Line Procedure Patient sedated: yes (see MAR) Sedation type: general; Artery prepped with chlorhexidine; skin prep agent completely dried prior to procedure. Location: radial artery Laterality: right Technique: palpation Needle gauge: 20 G Number of attempts: 1 Procedure Outcome Catheter secured with adhesive dressing applied Events: no complications noted during i nsertion and skin intact, warm, and dry Observation: pt tolerated well Performed by: Carlos Manuel Funk MD Authorized by: Jennifer Bennett MD * NOTES (11/11/2019 9:33 AM SHIRT PRESSER) Specimen Notes SENT 11.17.2019 REFERENCE LAB Specimen Performing Organization Address City/State/[facility] [place] one Number REFERENCE LAB REFERENCE LAB See results for address. * SURGICAL PATHOLOGY (11/11/2019 9:24 AM SHIRT PRESSER) PATHOLOGY [facility] [employer] [facility] [email or web address] Department of Pathology and Laboratory Medicine [address] [place] [address] Surgical Pathology Office: [phone] SURGICAL PATHOLOGY REPORT NAME: BENEDICTO RIOS SURG PATH #: [id number] MR #: [id number] SPECIMEN CLASS: [facility] BILLING #: [id number] ALT ID #: LOCATION: DISCHARGED DATE OF PROCEDURE: 11/11/2019 AGE: 54 SEX: M DATE RECEIVED: 11/11/2019 : 1965 TIME RECEIVED: 09:33 PHYSICIAN: GERARDO NESBITT MD DATE OF REPORT: 11/14/2019 COPY TO: DATE OF PRINTIN11/14/2019 ############################## ############################## ############ Final Diagnosis: A. Brain, "left parietal tumor", left parietal craniotomy: Glioblastoma, WHO grade IV See comment. B. Brain, "left parietal tumor routine", left parietal craniotomy: Glioblastoma, WHO grade IV See comment. Comment: [id number] immunostain on block B5 is negative. Due to the patient's young age, full assessment of IDH mutation status will be performed with sequence analysis for IDH1 codon 132 and IDH2 codon 172 mutations. Please see addendum for full integrated diagnosis. BRAIN/Resection History of Previous Tumor/Familial Syndrome None known Specimen Type/Procedure Resection Specimen Handling Intraoperative smears & frozen sections Routine permanent paraffin sections Specimen Size Greatest dimension: 5.4 cm Laterality Left Tumor Site Brain/cerebrum Histologic Type Astrocytic Tumors Glioblastoma WHO Histologic Grade WHO grade IV Additional Pathologic Studies Immunohistochemistry: Block B5: GFAP, Ki-67/MIB-1, p53, [id number] (see microscopic description for additional details) The pathologic stage assigned here should be regarded as provisional, as it reflects only current pathologic data and does not incorporate full knowledge of the patient's clinical status and/or prior pathology. Pursuant to the Forming Department End Finder Program at the [facility] Pathology Department, selected slides from this case have been concurrently reviewed by the following pathologist: Dr. Olivia Kauffman who agrees with the final diagnosis. REFERENCE: WHO Classification of Tumours of the Central Nervous System (2016, IARC press, Álvarez) Blocks for molecular: B5>B4 Attestation: By this signature, I attest that I have personally formulated the final interpretation expressed in this report and that the above diagnosis is based upon my examination of the slides and/or other material indicated in this report. +++ +++ [facility]/11/11/2019 ############################## ############################## ############ Material Received: A: left parietal tumor B: left parietal tumor History: 54-year-old male who presents with severe headaches and visual difficulty. MRI of the brain shows a left parietal mass concerning for high-grade glioma. He presents for surgical resection. Microscopic Description: Sections show a high grade glial tumor with atypia, mitoses, necrosis and prominent microvascular proliferation Immunohistochemistry - Block B5: GFAP: positive p53: negative [id number]: negative Ki-67/MIB1: significantly increased, ranges from 15% to 40%, estimated Gross Description: A. Received fresh, labeled with patient's name and "left parietal tumor" is a 1.7 x 0.7 x 0.3 cm aggregate of white-easton tissue. Touch preps are made. The specimen is submitted entirely for frozen consultation with the remnant placed in cassette A1FS for permanent diagnosis. ([facility]) B. Received in formalin, labeled with the patient's name and "left parietal tumor routine" is a 5.4 x 5.2 x 2.7 cm white-easton to pink-brown portion of brain. The specimen is serially sectioned to reveal a white-easton cut surface with a focal dark red area measuring 1.5 x 1.3 x 1.1 cm. Electronic Drafter sections of the specimen are submitted in cassettes B1-B5 (B2-B4 contain dark red focal area submitted entirely). ([facility]) [facility]/11/11/2019 Intraoperative Consultation: A1FS, smears, brain, "left parietal tumor", biopsy: High-grade glioma Note: A cytologic smear/squash (A1TP) was performed on different areas from the specimen and used together with the frozen sections (A1FS) for optimal evaluation. Frozen section performed at the [facility], [address] [place] [address]. Sonia Frey MD If immunohistochemical stains and/or in situ hybridization are cited in this report, the performance characteristics were determined by the [facility] of [facility] ([employer]) in compliance with CLIA'88 regulations. Some of these tests rely on the use of "analyte specific reagents" and are subject to specific labeling requirements by the FDA. Known positive and negative control tissues demonstrate appropriate staining. Results should be interpreted with caution given the likelihood of false negativity on decalcified specimens. This testing was developed by the Department of [facility] and [facility] of the [facility]. It has not been cleared or approved by the FDA. The FDA has determined that such clearance or approval is not necessary. Specimen Tissue - Brain Tissue - Brain Performing Organization Address [facility] one Number MAIN LAB [address] [place] [address] * PLATELET P2Y12 RESPONSE (11/11/2019 4:18 AM SHIRT PRESSER) Only the most recent of 3 results within the time period is included. Platelet P2Y12 177 MAIN LAB Response Specimen Performing Organization Address [facility] one Number MAIN LAB [address] [place] [address] * BLOOD TYPE CONFIRMATION - ORDER ONLY IF REQUESTED BY LAB (11/10/2019 9:33 AM SHIRT PRESSER) ABO/RH(D) A POS MAIN LAB Specimen Performing Organization [facility] one Number MAIN LAB [address] [place] [address] * TYPE & CROSSMATCH (11/10/2019 9:00 AM SHIRT PRESSER) Units Ordered 2 MAIN LAB Crossmatch 11/13/2019 MAIN LAB Expires Record Check 2ND TYPE REQUIRED MAIN LAB ABO/RH(D) A POS MAIN LAB Antibody Screen NEG MAIN LAB Electronic YES MAIN LAB Crossmatch Specimen Blood Performing Organization [facility] one Number MAIN LAB [address] [place] [address] * IONIZED CALCIUM (11/07/2019 12:39 PM SHIRT PRESSER) Only the most recent of 3 results within the time period is included. Ionized Calcium 1.01 1.0 - 1.3 MMOL/L MAIN LAB Specimen Blood Performing Organization Address [facility] one Number MAIN LAB [address] [place] [address] * CT ABD/PELV W CONTRAST (11/06/2019 6:38 PM SHIRT PRESSER) Specimen Impressions Performed At CHEST: [facility] RES[facility] 1. No pulmonary mass or thoracic lympha denopathy. 2. Diffuse upper lobe predominant centr ilobular groundglass opacities, which is most likely due to respiratory bronchio litis, likely smoking-related. 3. Few tiny bilateral pulmonary nodules , which may be noncalcified granulomas or scars. Attention on follow-up CT chest is recommended in 12 months or per clinical protocol. ABDOMEN AND PELVIS: 1. No abdominopelvic lymphadenopathy. By my electronic signature, I attest th at I have personally reviewed the images for this examination and formulated the interpretations and opinions expressed in this report Finalized by Linda Calvert M.D. on 8:58 AM. Dictated by Stephanie Carrillo M.D. on 11/07/2019 8:02 AM. Narrative Performed At CT CHEST, ABDOMEN AND PELVIS [facility] Clinical Indication: Male, 54 years o ld. Assess for primary/metastatic disease Technique: Multiple contiguous axial im ages were obtained through the chest, abdomen and pelvis following the admini stration of IV contrast material. Portal venous phase of postcontrast imaging wa s obtained. Post processing coronal and sagittal reconstruction images were mad e from the axial images. IV contrast: Omnipaque-350 Bowel contrast: None Comparison: None CHEST FINDINGS: Lower Neck: Unremarkable Axilla, Mediastinum and Marcia: No thorac ic lymphadenopathy. Heart and Great Vessels: Heart is sussy l in size without pericardial effusion. Coronary artery calcification/stents ar e noted. Thoracic aorta is normal in caliber with mild atherosclerotic plaqu e. Airway, Lungs and Pleura: Small amount of secretions are noted within the trachea. There are diffuse upper lobe p redominant centrilobular groundglass opacities with a more focal confluent a reas of groundglass opacity within the right upper lobe (series 302 image 30). A few tiny bilateral pulmonary nodules, for example within the right lower lobe on series 302 image 68. No pleural effusion. Linear atelectasis or scarrin g within both lung bases. Chest Wall and Osseous Structures: Smal l cutaneous/subcutaneous nodule along the midline posterior soft tissues (series 302 image 99), most likely a sebaceous cyst. Additional more linear cutaneous thickening along the upper soft tissues of the chest wall (series 302 image 22) . No destructive osseous lesions. ABDOMEN AND PELVIS FINDINGS: Liver and Biliary system: Liver is norm al in size with geographic areas of hepatic steatosis. A few tiny hepatic h ypodensities, which are too small to characterize. High density layering flu id within the gallbladder, which may be due to vicarious excretion of previousl y administered contrast material. Major portal veins are patent. Spleen: Unremarkable. Adrenal Glands and Kidneys: Unremarkabl e adrenal glands. Tiny right renal hypodensity, which is too small to jose acterize, though likely benign. Excreted contrast material within both renal col lecting systems. No hydronephrosis. Pancreas and Retroperitoneum: Pancreas is unremarkable. No retroperitoneal lymphadenopathy. Aorta and Major Vessels: Abdominal aort a is normal in caliber with moderate scattered calcified and noncalcified at herosclerotic plaque. Bowel, Mesentery and Peritoneal space: There appears to be a small focal telescoping of the first portion of the duodenum within the gastric antrum (series 2 image 82) with minimal mural thickening of the decompressed first portion of the duodenum, likely transie nt. Large and small bowel loops are normal in caliber. Normal appendix. No mesenteric lymphadenopathy or ascites. Pelvis: No pelvic lymphadenopathy. Pros nowak gland is normal in size with a few dystrophic calcifications. Urinary blad anne is opacified and mildly distended. Abdominal wall and Osseous Structures: No destructive osseous lesions. A few additional cutaneous nodules along the midline dorsal abdominal wall, most likely additional sebaceous cysts. Procedure Note Interface, Radiant Results - 11/07/2019 9:[address] CHEST, ABDOMEN AND PELVIS Clinical Indication: Male, 54 years old. Assess for primary/metastatic disease Technique: Multiple contiguous axial images were obtained through the chest, abdomen and pelvis following the administration of IV contrast material. Portal venous phase of postcontrast imaging was obtained. Post processing coronal and sagittal reconstruction images were made from the axial images. IV contrast: Omnipaque-350 Bowel contrast: None Comparison: None CHEST FINDINGS: Lower Neck: Unremarkable Axilla, Mediastinum and Marcia: No thoracic lymphadenopathy. Heart and Great Vessels: Heart is normal in size without pericardial effusion. Coronary artery calcification/stents are noted. Thoracic aorta is normal in caliber with mild atherosclerotic plaque. Airway, Lungs and Pleura: Small amount of secretions are noted within the trachea. There are diffuse upper lobe predominant centrilobular groundglass opacities with a more focal confluent areas of groundglass opacity within the right upper lobe (series 302 image 30). A few tiny bilateral pulmonary nodules, for example within the right lower lobe on series 302 image 68. No pleural effusion. Linear atelectasis or scarring within both lung bases. Chest Wall and Osseous Structures: Small cutaneous/subcutaneous nodule along the midline posterior soft tissues (series 302 image 99), most likely a sebaceous cyst. Additional more linear cutaneous thickening along the upper soft tissues of the chest wall (series 302 image 22). No destructive osseous lesions. ABDOMEN AND PELVIS FINDINGS: Liver and Biliary system: Liver is normal in size with geographic areas of hepatic steatosis. A few tiny hepatic hypodensities, which are too small to characterize. High density layering fluid within the gallbladder, which may be due to vicarious excretion of previously administered contrast material. Major portal veins are patent. Spleen: Unremarkable. Adrenal Glands and Kidneys: Unremarkable adrenal glands. Tiny right renal hypodensity, which is too small to characterize, though likely benign. Excreted contrast material within both renal collecting systems. No hydronephrosis. Pancreas and Retroperitoneum: Pancreas is unremarkable. No retroperitoneal lymphadenopathy. Aorta and Major Vessels: Abdominal aorta is normal in caliber with moderate scattered calcified and noncalcified atherosclerotic plaque. Bowel, Mesentery and Peritoneal space: There appears to be a small focal telescoping of the first portion of the duodenum within the gastric antrum (series 2 image 82) with minimal mural thickening of the decompressed first portion of the duodenum, likely transient. Large and small bowel loops are normal in caliber. Normal appendix. No mesenteric lymphadenopathy or ascites. Pelvis: No pelvic lymphadenopathy. Prostate gland is normal in size with a few dystrophic calcifications. Urinary bladder is opacified and mildly distended. Abdominal wall and Osseous Structures: No destructive osseous lesions. A few additional cutaneous nodules along the midline dorsal abdominal wall, most likely additional sebaceous cysts. IMPRESSION CHEST: 1. No pulmonary mass or thoracic lymphad enopathy. 2. Diffuse upper lobe predominant centri lobular groundglass opacities, which is most likely due to respiratory bronchiolitis, likely smoking-related. 3. Few tiny bilateral pulmonary nodules, which may be noncalcified granulomas or scars. Attention on follow-up CT chest is recommended in 12 months or per clinical protocol. ABDOMEN AND PELVIS: 1. No abdominopelvic lymphadenopathy. By my electronic signature, I attest that I have personally reviewed the images for this examination and formulated the interpretations and opinions expressed in this report Finalized by Linda Calvert M.D. on 11/07/2019 8:58 AM. Dictated by Stephanie Carrillo M.D. on 11/07/2019 8:02 AM. Performing Organization Address City/State/Zipcode Ph one Number [facility] * CT CHEST W CONTRAST (11/06/2019 6:38 PM SHIRT PRESSER) Specimen Impressions Performed At CHEST: [facility] RES[facility] 1. No pulmonary mass or thoracic lympha denopathy. 2. Diffuse upper lobe predominant centr ilobular groundglass opacities, which is most likely due to respiratory bronchio litis, likely smoking-related. 3. Few tiny bilateral pulmonary nodules , which may be noncalcified granulomas or scars. Attention on follow-up CT chest is recommended in 12 months or per clinical protocol. ABDOMEN AND PELVIS: 1. No abdominopelvic lymphadenopathy. By my electronic signature, I attest th at I have personally reviewed the images for this examination and formulated the interpretations and opinions expressed in this report Finalized by Linda Calvert M.D. on 8:58 AM. Dictated by Stephnaie Carrillo M.D. on 11/07/2019 8:02 AM. Narrative Performed At CT CHEST, ABDOMEN AND PELVIS [facility] RESULTS Clinical Indication: Male, 54 years o ld. Assess for primary/metastatic disease Technique: Multiple contiguous axial im ages were obtained through the chest, abdomen and pelvis following the admini stration of IV contrast material. Portal venous phase of postcontrast imaging wa s obtained. Post processing coronal and sagittal reconstruction images were mad e from the axial images. IV contrast: Omnipaque-350 Bowel contrast: None Comparison: None CHEST FINDINGS: Lower Neck: Unremarkable Axilla, Mediastinum and Marcia: No thorac ic lymphadenopathy. Heart and Great Vessels: Heart is sussy l in size without pericardial effusion. Coronary artery calcification/stents ar e noted. Thoracic aorta is normal in caliber with mild atherosclerotic plaqu e. Airway, Lungs and Pleura: Small amount of secretions are noted within the trachea. There are diffuse upper lobe p redominant centrilobular groundglass opacities with a more focal confluent a reas of groundglass opacity within the right upper lobe (series 302 image 30). A few tiny bilateral pulmonary nodules, for example within the right lower lobe on series 302 image 68. No pleural effusion. Linear atelectasis or scarrin g within both lung bases. Chest Wall and Osseous Structures: Smal l cutaneous/subcutaneous nodule along the midline posterior soft tissues (series 302 image 99), most likely a sebaceous cyst. Additional more linear cutaneous thickening along the upper soft tissues of the chest wall (series 302 image 22) . No destructive osseous lesions. ABDOMEN AND PELVIS FINDINGS: Liver and Biliary system: Liver is norm al in size with geographic areas of hepatic steatosis. A few tiny hepatic h ypodensities, which are too small to characterize. High density layering flu id within the gallbladder, which may be due to vicarious excretion of previousl y administered contrast material. Major portal veins are patent. Spleen: Unremarkable. Adrenal Glands and Kidneys: Unremarkabl e adrenal glands. Tiny right renal hypodensity, which is too small to jose acterize, though likely benign. Excreted contrast material within both renal col lecting systems. No hydronephrosis. Pancreas and Retroperitoneum: Pancreas is unremarkable. No retroperitoneal lymphadenopathy. Aorta and Major Vessels: Abdominal aort a is normal in caliber with moderate scattered calcified and noncalcified at herosclerotic plaque. Bowel, Mesentery and Peritoneal space: There appears to be a small focal telescoping of the first portion of the duodenum within the gastric antrum (series 2 image 82) with minimal mural thickening of the decompressed first portion of the duodenum, likely transie nt. Large and small bowel loops are normal in caliber. Normal appendix. No mesenteric lymphadenopathy or ascites. Pelvis: No pelvic lymphadenopathy. Pros nowak gland is normal in size with a few dystrophic calcifications. Urinary blad anne is opacified and mildly distended. Abdominal wall and Osseous Structures: No destructive osseous lesions. A few additional cutaneous nodules along the midline dorsal abdominal wall, most likely additional sebaceous cysts. Procedure Note Interface, Radiant Results - 11/07/2019 9:[address] CHEST, ABDOMEN AND PELVIS Clinical Indication: Male, 54 years old. Assess for primary/metastatic disease Technique: Multiple contiguous axial images were obtained through the chest, abdomen and pelvis following the administration of IV contrast material. Portal venous phase of postcontrast imaging was obtained. Post processing coronal and sagittal reconstruction images were made from the axial images. IV contrast: Omnipaque-350 Bowel contrast: None Comparison: None CHEST FINDINGS: Lower Neck: Unremarkable Axilla, Mediastinum and Marcia: No thoracic lymphadenopathy. Heart and Great Vessels: Heart is normal in size without pericardial effusion. Coronary artery calcification/stents are noted. Thoracic aorta is normal in caliber with mild atherosclerotic plaque. Airway, Lungs and Pleura: Small amount of secretions are noted within the trachea. There are diffuse upper lobe predominant centrilobular groundglass opacities with a more focal confluent areas of groundglass opacity within the right upper lobe (series 302 image 30). A few tiny bilateral pulmonary nodules, for example within the right lower lobe on series 302 image 68. No pleural effusion. Linear atelectasis or scarring within both lung bases. Chest Wall and Osseous Structures: Small cutaneous/subcutaneous nodule along the midline posterior soft tissues (series 302 image 99), most likely a sebaceous cyst. Additional more linear cutaneous thickening along the upper soft tissues of the chest wall (series 302 image 22). No destructive osseous lesions. ABDOMEN AND PELVIS FINDINGS: Liver and Biliary system: Liver is normal in size with geographic areas of hepatic steatosis. A few tiny hepatic hypodensities, which are too small to characterize. High density layering fluid within the gallbladder, which may be due to vicarious excretion of previously administered contrast material. Major portal veins are patent. Spleen: Unremarkable. Adrenal Glands and Kidneys: Unremarkable adrenal glands. Tiny right renal hypodensity, which is too small to characterize, though likely benign. Excreted contrast material within both renal collecting systems. No hydronephrosis. Pancreas and Retroperitoneum: Pancreas is unremarkable. No retroperitoneal lymphadenopathy. Aorta and Major Vessels: Abdominal aorta is normal in caliber with moderate scattered calcified and noncalcified atherosclerotic plaque. Bowel, Mesentery and Peritoneal space: There appears to be a small focal telescoping of the first portion of the duodenum within the gastric antrum (series 2 image 82) with minimal mural thickening of the decompressed first portion of the duodenum, likely transient. Large and small bowel loops are normal in caliber. Normal appendix. No mesenteric lymphadenopathy or ascites. Pelvis: No pelvic lymphadenopathy. Prostate gland is normal in size with a few dystrophic calcifications. Urinary bladder is opacified and mildly distended. Abdominal wall and Osseous Structures: No destructive osseous lesions. A few additional cutaneous nodules along the midline dorsal abdominal wall, most likely additional sebaceous cysts. IMPRESSION CHEST: 1. No pulmonary mass or thoracic lymphad enopathy. 2. Diffuse upper lobe predominant centri lobular groundglass opacities, which is most likely due to respiratory bronchiolitis, likely smoking-related. 3. Few tiny bilateral pulmonary nodules, which may be noncalcified granulomas or scars. Attention on follow-up CT chest is recommended in 12 months or per clinical protocol. ABDOMEN AND PELVIS: 1. No abdominopelvic lymphadenopathy. By my electronic signature, I attest that I have personally reviewed the images for this examination and formulated the interpretations and opinions expressed in this report Finalized by Linda Calvert M.D. on 11/07/2019 8:58 AM. Dictated by Stephanie Carrillo M.D. on 11/07/2019 8:02 AM. Performing Organization Address [facility] one Number RAD RESULTS * UREA NITROGEN-URINE RANDOM (11/06/2019 1:10 PM SHIRT PRESSER) Urea Nitrogen 811 MG/DL MAIN LAB Specimen Urine - Urine Performing Organization [facility] one Number MAIN LAB [address] [place] [address] * SODIUM-URINE RANDOM (11/06/2019 1:10 PM SHIRT PRESSER) Sodium, Random 54 MMOL/L MAIN LAB Specimen Urine - Urine Performing Organization [facility] one Number MAIN LAB [address] [place] [address] * OSMOLALITY-URINE RANDOM (11/06/2019 1:10 PM SHIRT PRESSER) Osmolality-Urin 985 50 - 1,400 MOS/KG MAIN LAB e Specimen Urine - Urine Performing Organization [facility] one Number MAIN LAB [address] [place] [address] * CREATININE-URINE RANDOM (11/06/2019 1:10 PM SHIRT PRESSER) Creatinine, 178 MG/DL MAIN LAB Random Specimen Urine - Urine Performing Organization [facility] one Number MAIN LAB [address] [place] [address] * OSMOLALITY (11/06/2019 11:30 AM SHIRT PRESSER) Osmolality 297 280 - 307 MOSMOL/KG MAIN LA B Specimen Blood Performing Organization [facility] one Number MAIN LAB [address] [place] [address] * 2-D + DOPPLER ECHOCARDIOGRAM (11/06/2019 9:56 AM SHIRT PRESSER) IVS 0.96 0.6 - 1.0 cm OTHER OUTSIDE LAB LVIDD 4.97 4.2 - 5.8 cm OTHER OUTSIDE LAB LVIDS 3.80 2.5 - 4.0 cm OTHER OUTSIDE LAB PW 1.06 0.6 - 1.0 cm OTHER OUTSIDE LAB Left Ventricle 75.74 62 - 150 mL OTHER OUTSIDE Diastolic LAB Volume Left Ventricle 36.59 34 - 74 mL OTHER OUTSIDE Diastolic LAB Volume Index Left Ventricle 33.22 21 - 61 mL OTHER OUTSIDE Systolic Volume LAB Left Ventricle 16.05 11 - 31 mL OTHER OUTSIDE Systolic Volume LAB Index TDI lateral e' 0.11 m/s OTHER OUTSIDE LAB Right 2.94 1.9 - 3.5 cm OTHER OUTSIDE Ventricular Mid LAB Diameter LA size 4.44 3.0 - 4.0 cm OTHER OUTSIDE LAB LA volume 33.71 18 - 58 mL OTHER OUTSIDE LAB Right Atrial 14.24 <18 cm2 OTHER OUTSIDE Area LAB Right Atrial 5.26 2.1 - 2.7 cm OTHER OUTSIDE Major Dimension LAB AV peak 1.76 m/s OTHER OUTSIDE velocity LAB MV Peak A Thiago 0.73 m/s OTHER OUTSIDE LAB MV Peak E Thiago 0.85 m/s OTHER OUTSIDE PW LAB Right 3.58 2.5 - 4.1 cm OTHER OUTSIDE Ventricular LAB Basal Diameter Right Heart 0.14 m/s OTHER OUTSIDE Systolic TDI S' LAB Right Heart 1.81 >1.7 cm OTHER OUTSIDE Systolic Mmode LAB TAPSE Sinus 3.55 2.8 - 4.0 cm OTHER OUTSIDE LAB Ascending aorta 3.17 cm OTHER OUTSIDE LAB BSA 2.07 m2 OTHER OUTSIDE LAB CV ECHO PV FARSHAD Patiño OTHER OUTSIDE GRAIN SPOUTER LAB FS 23.54 28 - 44 % OTHER OUTSIDE LAB EF 40.02 % OTHER OUTSIDE LAB LV mass 182.62 88 - 224 g OTHER OUTSIDE LAB RWT 0.43 <=0.42 OTHER OUTSIDE LAB E/A ratio 1.16 OTHER OUTSIDE LAB Lateral E/E' 7.73 OTHER OUTSIDE ratio LAB Left Atrium 16.29 16 - 34 OTHER OUTSIDE Index LAB Cardiology Siemens [id number] OTHER OUTSIDE Ultrasound LAB Machine Left Ventricle 88.22 49 - 115 g/m2 OTHER OUTSIDE Mass Index LAB TDI Medial e' 0.110 m/s OTHER OUTSIDE LAB Medial E/E' 7.73 OTHER OUTSIDE ratio LAB ECHO EF 56 % OTHER OUTSIDE LAB Specimen Narrative Performed At OTHER OUTSIDE LAB Left Ventricle: Normal size, wall th ickness and shape. Concentric remodeling. Normal ejection fraction wi th LVEF=56% by Rodriguez's biplane. No segmental wall motion abnormalities. Right Ventricle: Normal size and eje ction fraction. There is no significant valve diseas e. There is no interatrial shunting by color flow Doppler and saline contrast studies. No cardiac source of embolus was jett ntified, consider MARIO if clinically indicated. Performing Organization Address City/State/Zipcode Ph one Number OTHER OUTSIDE LAB * CTA HEAD WO/W CONTR+POST PRO (11/06/2019 5:57 AM SHIRT PRESSER) Specimen Impressions Performed At 1. Patent intracranial arterial vasculature without l arge vessel occlusion, [facility] RESULTS high-grade stenosis, aneurysm, or AVM. 2. No significant change in size of 2 s mall areas of intraparenchymal hemorrhage within the left parieto-occipital regio n. 3. Moderate associated hypoattenuation within the left posterior cerebral hemisphere, most compatible with edema. The degree of edema is much greater than expected from solely the presence of pa renchymal hemorrhage, with underlying mass favored and associated vasogenic e isidro. There are areas of cortical thickening along the left cerebral aaron sphere which may be related to infiltrating tumor. Similar diffuse lef t cerebral sulcal effacement with mild 4 mm left to right midline shift. Cerebri tis would be a less likely consideration for these findings, though possible in the proper clinical setting. Correlation with CSF and/or MRI with contrast would be helpful for further evaluation. 4. No significant change in minimal sca ttered left cerebral convexity subarachnoid hemorrhage. No intraventri cular hemorrhage. By my electronic signature, I attest th at I have personally reviewed the images for this examination and formulated the interpretations and opinions expressed in this report Finalized by Dejan Deluca M.D. on 11/06/2019 6:36 AM. Dictated by Lorne Canela M.D. on 11/06/2019 5:54 AM. Narrative Performed At EXAM: CTA HEAD [facility] RAD RESULTS HISTORY: 54-year-old male, intracranial hemorrha ge with subarachnoid hemorrhage. TECHNIQUE: Multiple contiguous axial im ages were obtained of the brain before and following the administration of Omn ipaque 350 IV contrast. CTA maximum density projection images were obtained of the brain with image post processing. Comparison: Outside CT head November 05, 2019. FINDINGS: Redemonstration of 2 small foci of intr aparenchymal hemorrhage within the left parietal-occipital region, with the lar willie measuring up to 1.2 cm (series 303, image 39), previously 1.2 cm. There is moderate associated hypoattenuation within the adjacent white matter, mostl y having the appearance of vasogenic edema. No significant change in minimal scattered subarachnoid hemorrhage about the left cerebral convexity. Some mild left cortical thickening at the lateral posterior left frontal, occipital and p arietal lobes is also redemonstrated (best seen on series 2, image 18). Ther e is similar diffuse left cerebral sulcal effacement and 4 mm left to right midli ne shift. No significant herniation. The ventricles remain nondistended, with so me persistent compression of the left lateral ventricle. No intraventricular extension of hemorr marlon. The basal cisterns are patent. Intact calvarium. Mild mucosal thickeni ng of a right posterior ethmoid air cell. Mastoid air cells and remaining visuali zed paranasal sinuses are clear. The distal internal carotid, vertebral, and basilar arteries are patent without focal narrowing or occlusion. The anter ior, middle, and posterior cerebral arteries are patent without focal narro wing. No aneurysm or arteriovenous malformation is identified. No enhancin g intracranial mass. Procedure Note Interface, Radiant Results - 11/06/2019 6:40 AM SHIRT PRESSER EXAM: CTA HEAD HISTORY: 54-year-old male, intracranial hemorrhag e with subarachnoid hemorrhage. TECHNIQUE: Multiple contiguous axial images were obtained of the brain before and following the administration of Omnipaque 350 IV contrast. CTA maximum density projection images were obtained of the brain with image post processing. Comparison: Outside CT head November 05, 2019. FINDINGS: Redemonstration of 2 small foci of intraparenchymal hemorrhage within the left parietal-occipital region, with the larger measuring up to 1.2 cm (series 303, image 39), previously 1.2 cm. There is moderate associated hypoattenuation within the adjacent white matter, mostly having the appearance of vasogenic edema. No significant change in minimal scattered subarachnoid hemorrhage about the left cerebral convexity. Some mild left cortical thickening at the lateral posterior left frontal, occipital and parietal lobes is also redemonstrated (best seen on series 2, image 18). There is similar diffuse left cerebral sulcal effacement and 4 mm left to right midline shift. No significant herniation. The ventricles remain nondistended, with some persistent compression of the left lateral ventricle. No intraventricular extension of hemorrhage. The basal cisterns are patent. Intact calvarium. Mild mucosal thickening of a right posterior ethmoid air cell. Mastoid air cells and remaining visualized paranasal sinuses are clear. The distal internal carotid, vertebral, and basilar arteries are patent without focal narrowing or occlusion. The anterior, middle, and posterior cerebral arteries are patent without focal narrowing. No aneurysm or arteriovenous malformation is identified. No enhancing intracranial mass. IMPRESSION 1. Patent intracranial arterial vasculat ure without large vessel occlusion, high-grade stenosis, aneurysm, or AVM. 2. No significant change in size of 2 sm all areas of intraparenchymal hemorrhage within the left parieto-occipital region. 3. Moderate associated hypoattenuation w ithin the left posterior cerebral hemisphere, most compatible with edema. The degree of edema is much greater than expected from solely the presence of parenchymal hemorrhage, with underlying mass favored and associated vasogenic edema. There are areas of cortical thickening along the left cerebral hemisphere which may be related to infiltrating tumor. Similar diffuse left cerebral sulcal effacement with mild 4 mm left to right midline shift. Cerebritis would be a less likely consideration for these findings, though possible in the proper clinical setting. Correlation with CSF and/or MRI with contrast would be helpful for further evaluation. 4. No significant change in minimal scat tered left cerebral convexity subarachnoid hemorrhage. No intraventricular hemorrhage. By my electronic signature, I attest that I have personally reviewed the images for this examination and formulated the interpretations and opinions expressed in this report Finalized by Dejan Deluca M.D. on 11/06/2019 6:36 AM. Dictated by Lorne Canela M.D. on 11/06/2019 5:54 AM. Performing Organization Address City/[facility] Ph one Number [facility] RAD RESULTS * TROPONIN-I (11/06/2019 4:31 AM SHIRT PRESSER) Troponin-I 0.00 0.0 - 0.05 NG/ML MAIN LAB Specimen Blood Performing Organization Address [facility] Ph one Number MAIN LAB [address] [place] [address] * PTT (APTT) (11/06/2019 4:31 AM SHIRT PRESSER) APTT 28.4 24.0 - 36.5 SEC MAIN LAB Specimen Blood Performing Organization Address [facility] [place] one Number [facility] MAIN [facility] [address] [place] [address] * PROTIME INR (PT) (11/06/2019 4:31 AM SHIRT PRESSER) Pathologist [facility] INR 1.1 0.8 - 1.2 [facility] MAIN LAB Specimen Blood Performing Organization Address [facility] [place] one Number [facility] MAIN LAB [address] [place] [address] * CBC AND DIFF (11/06/2019 4:31 AM SHIRT PRESSER) Pathologist [facility] White Blood 15.7 (H) 4.5 - 11.0 K/UL [facility] MAIN LAB Cells RBC 5.55 (H) 4.4 - 5.5 M/UL [facility] MAIN LAB Hemoglobin 15.5 13.5 - 16.5 GM/DL [facility] MAIN LAB Hematocrit 45.7 40 - 50 % [facility] MAIN LAB MCV 82.3 80 - 100 FL [facility] MAIN LAB MCH 28.0 26 - 34 PG [facility] MAIN LAB MCHC 34.0 32.0 - 36.0 G/DL [facility] MAIN LAB RDW 14.5 11 - 15 % [facility] MAIN LAB Platelet Count 263 150 - 400 K/UL [facility] MAIN LAB MPV 8.1 7 - 11 FL [facility] MAIN LAB DIFFA [facility] MAIN LAB Neutrophils 89 (H) 41 - 77 % [facility] MAIN LAB Lymphocytes 9 (L) 24 - 44 % [facility] MAIN [facility] Monocytes 2 (L) 4 - 12 % [facility] MAIN LAB Eosinophils 0 0 - 5 % [facility] MAIN LAB Basophils 0 0 - 2 % [facility] MAIN LAB Absolute 14.00 (H) 1.8 - 7.0 K/UL [facility] MAIN LAB Neutrophil Count Absolute Lymph 1.40 1.0 - 4.8 K/UL [facility] MAIN LAB Count Absolute 0.30 0 - 0.80 K/UL [facility] MAIN LAB Monocyte Count Absolute 0.00 0 - 0.45 K/UL [facility] MAIN LAB Eosinophil Count Absolute 0.00 0 - 0.20 K/UL [facility] MAIN LAB Basophil Count Specimen Blood Performing Organization Address [facility] one Number TERRI MAIN LAB [address] [place] [address] * HEMOGLOBIN A1C (11/06/2019 4:31 AM SHIRT PRESSER) Pathologist [facility] Hemoglobin A1C 11.8 (H) 4.0 - 6.0 % [facility] MAIN LAB Comment: The ADA recommends that most patients with type 1 and type 2 diabetes maintain an A1c level <7%. Specimen Blood Performing Organization Address [facility] Ph one Number [facility] MA[facility] [address] [place] [address] * LIPID PROFILE (11/06/2019 4:31 AM SHIRT PRESSER) Cholesterol 125 <200 MG/DL [facility] MAIN LAB Triglycerides 208 (H) <150 MG/DL [facility] MAIN LAB HDL 24 (L) >40 MG/DL [facility] MAIN LAB LDL 66 <100 mg/dL [facility] MAIN LAB VLDL 42 MG/DL [facility] MAIN LAB Non HDL 101 MG/DL [facility] MAIN LAB Cholesterol Comment: Calculated non-HDL Cholesterol (non-HDL-C) indirectly measures LDL-C, Lp(a), IDL-C, and VLDL-C. It is a surrogate marker for Apoprotein B. Goal should be less than 130 mg/dL. Specimen Blood Performing Organization Address [facility] one Number [facility] MAIN LAB [address] [place] [address] * COMPREHENSIVE METABOLIC PANEL (11/06/2019 4:31 AM SHIRT PRESSER) Sodium 134 (L) 137 - 147 MMOL/L [facility] MAIN LAB Potassium 4.3 3.5 - 5.1 MMOL/L [facility] MAIN LAB Chloride 103 98 - 110 MMOL/L [facility] MAIN LAB Glucose 180 (H) 70 - 100 MG/DL [facility] MAIN LAB Blood Urea 17 7 - 25 MG/DL [facility] MAIN LAB Nitrogen Creatinine 0.88 0.4 - 1.24 MG/DL [facility] MAIN LAB Calcium 9.2 8.5 - 10.6 MG/DL [facility] MAIN LAB Total Protein 7.2 6.0 - 8.0 G/DL [facility] MAIN LAB Total Bilirubin 0.6 0.3 - 1.2 MG/DL [facility] MAIN LAB Albumin 4.2 3.5 - 5.0 G/DL [facility] MAIN LAB Alk Phosphatase 92 25 - 110 U/L [facility] MAIN LAB AST (SGOT) 15 7 - 40 U/L [facility] MAIN LAB CO2 21 21 - 30 MMOL/L [facility] MAIN LAB ALT (SGPT) 18 7 - 56 U/L [facility] MAIN LAB Anion Gap 10 3 - 12 [facility] MAIN LAB eGFR Non >60 >60 mL/min [facility] MAIN LAB eGFR Non The eGFR is not validated for [facility] MAIN LAB use in drug dosing Indian adjustments. Continue to use estimated creatinine clearance per dosing reference text. Please contact the Clinical Pharmacist for questions. eGFR >60 >60 mL/min [facility] MAIN LAB Indian eGFR The eGFR is not validated for [facility] MAIN LAB Indian use in drug dosing adjustments. Continue to use estimated creatinine clearance per dosing reference text. Please contact the Clinical Pharmacist for questions. Specimen Blood Performing Organization Address City/State/Zipcode Ph one Number [facility] MAIN LAB [address] [place] [address] * ECG-SCAN (11/06/2019 12:00 AM SHIRT PRESSER) Narrative Performed At This result has an attachment that is n ot available. Ordered by an unspecified provider. * CT HEAD EXTERNAL IMAGING (11/05/2019 12:05 AM SHIRT PRESSER) Specimen Narrative Performed At This order has been auto finalized and does not contain a result. * GENERAL RAD CHEST EXTERNAL IMAGING (11/05/2019 12:00 AM SHIRT PRESSER) Specimen Narrative Performed At This order has been auto finalized and does not contain a result. from Last 3 Months Insurance Type Payer Benefit Subscriber ID Effective Phone Address Plan / Dates Group [employer] MEDICAID AET[employer] xxxxxxxxxxx 2019- BETTER Present [facility] [place] Advance Directives Patient Electronic Drafter Explanation Type Date Recorded Advance 11/07/2019 11:16 AM Directive/DPOA Date Inactivated Comments Code Status Date Activated 11/13/2019 2:13 PM Full Code 11/06/2019 4:02 AM Provider has discussed Code Status Yes w/Patient or Family?
--- OUTSIDE RECORDS SUMMARY | 2019-11-26 07:01 | XMS REPORT | Encounter Summary ---
Author Author [facility] Organization [facility] Address Unknown Phone Unavailable Care Team Providers Care [employer] Vice President Name Role Phone Sissy Kingsley MD PCP Reason for Referral * Consult, Test & Treat (Discharge Pending) Referred By Contact Referred To Contact Status Reason Specialty Diagnoses / Procedures Reyes Nesbitt MD [address] [facility] [address] [place] [address] Cc - Ww Cl Exm/Proc [address] No Auth Needed Oncology Procedures F/U APPT REQUEST: [facility] Reason for Visit * Auth/Cert Referred By Contact Referred To Contact Status Reason Specialty Diagnoses / Procedures Diagnoses ICH (intracerebral hemorrhage) (HCC) ICH Encounter Details Care Team Description Date Type Department Meek Cobb MD [address] [place], [place] [id number] Reyes Nesbitt MD [address] [facility] [address] [place] [address] [phone] Left-sided nontraumatic intracerebral he morrhage (HCC) 11/06/2019 [facility] 11/13/2019 [address] [place] [address] Social History Date Tobacco Use Types Packs/Day [...] Signs Reading Time Taken Comments Vital Sign 129/79 11/13/2019 8:40 AM MANAGER SOUND Blood Pressure 98 11/13/2019 8:40 AM MANAGER SOUND Pulse 36.9 C (98.4 F) 11/13/2019 8:40 AM MANAGER SOUND Temperature - - Respiratory Rate 99% 11/13/2019 8:40 AM MANAGER SOUND Oxygen Saturation - - Inhaled Oxygen Concentration 89.9 kg (198 lb 3.1 oz) 11/11/2019 4:00 AM MANAGER SOUND Weight 175.3 cm (5' 9.02") 11/06/2019 4:02 AM MANAGER SOUND Height 29.25 11/06/2019 4:02 AM MANAGER SOUND Body Mass Index documented in this encounter Functional Status Date of Assessment Functional Status Response 11/06/2019 Does the patient have a hearing impairment: No documented as of this encounter Discharge Summaries * Crystal Torres APRN-NP - 11/13/2019 12:08 PM MANAGER SOUND Physician Discharge Summary Name: Benedicto Rios Date Of : 1965 Age: 54 years Admit date: 11/06/2019 Discharge date: 11/13/2019 Attending Physician: Reyes Nesbitt MD Service: Surgery-Neuro Physician Summary completed by: RITCHIE Pat Reason for hospitalization: Brain mass Significant PMH: Medical History: Diagnosis Date Brain mass left parietal CAD (coronary artery disease), [place] coronary artery Chronic atrial fibrillation (HCC) COPD (chronic obstructive pulmonary disease) (HCC) Current smoker Diabetes mellitus (HCC) Hyperlipidemia, mixed Hypertension, essential Allergies: Bee sting kit and Bee [bumble bee] Admission Physical Exam notable for: Benedicto Rios is a 54 y.o. male who is tra [facility]red [facility] for diagnosis of new brain mass with hemorrhagic component. He reports he was in his usual state of health until the past few weeks. Normally he does not get headaches. He reports that lately he has been having severe hea daches every couple of days, and over the past 3-4 days particularly he has had continuous severe headache. He said it did not respond to over the counter medi cations. He takes Eliquis for Afib and Plavix for cardiac stents. He has a per swetha smoking history and family history of lung cancer in his sister, and also his aunt. He does not have a personal history of known cancers. He reports naus ea associated with his severe headaches, but he has never had vomiting. He jada s visual complaints at this time. No episodes concerning for seizure-type activ ity. CT head showed left parietal mas with small hemorrhagic component and poss ibly surrounding edema General Appearance: No acute distress Lungs: Stable on room air Heart: warm and well perfused Abdomen: Soft, non-tender Extremities: No edema, redness or tenderness in the calves or thighs Neurologic Exam: Mental Status: Awake, alert and oriented x 4, fluent speech, normal cognition Pupils: Pupils equal round and reactive to light Visual Browne: Right inferior quadrantanopsia on testing of visual browne to con frontation Cranial Nerves: Other than field loss as described above, CN II-XII individually tested and found to be intact, gag not tested Motor: No focal deficit noted; follows commands x4 Sensation: Sensation intact to light touch throughout Gait: Able to transfer from wheelchair to bed after returning from scanner with stable gait Admission Lab/Radiology studies notable for: As noted above. Brief Hospital Course: The patient was admitted and the following issues were a ddressed during this hospitalization: (with pertinent details). Patient was adm itted to the Neuro ICU service on 11/06/2019. An MRI was obtained which showed ne crotic enhancing hemorrhagic mass in the left parieto-occipital lobe. Patient wa s transferred to the neurosurgery service and OR plans were made for the followi sunday11/11/2019 as patient had been on plavix and Eliquis DIRECT[employer]. CT chest abd omen pelvis was obtained and negative for any primary or metastatic lesion. CT c hest showed few tiny nodules which were considered to be most likely granulomas or scars and a repeat CT chest in 12 months was recommended. Onc and rad onc wer e consulted and follow ups arranged. On 11/11/2019 the patient went to the OR und erwent the procedure listed below. Patient was extubated and tolerated procedure well. Patient returned to the Neuro ICU in stable condition. Post-operatively, patient's diet was advanced and was mobilized with PT/OT. Pain was controlled. P pamela was transferred to floor and dressings removed. Patient continued to work with PT/OT. Patient was discharged home with follow-up appointment with Dr. Roman walters. Patient was provided with PT/OT and speech outpatient scripts on DC. ASA 81mg to start 11/14/2019 and continue until able to start plavix on 11/21/2019. Okay to resume plavix 10 days post-op--resume on 11/21/2019. Okay to resume eliquis 4 weeks post-op--resume on 12/09/2019. Physical Exam: Awake and alert States name, place, year correctly Right hemianopsia stable SOSA to command with strength grossly intact at bed level Incision C/D/I, dressing removed Condition at Discharge: Stable Discharge Diagnoses: Hospital Problems Active Problems Left-sided nontraumatic intracerebral hemorrhage (HCC) Vasogenic edema (HCC) Other headache syndrome Hypertension, essential Hyperlipidemia, mixed Diabetes mellitus (HCC) Current smoker COPD (chronic obstructive pulmonary disease) (HCC) Chronic atrial fibrillation (HCC) CAD (coronary artery disease), [place] coronary artery Surgical Procedures: LEFT PARIETAL CRANIOTOMY FOR TUMOR RESECTION Significant Diagnostic Studies and Procedures: noted in brief hospital course Consults: Oncology, Radiation Oncology, Rehabilitative Medicine and Neuro Criti sohan Care Patient Disposition: Home Patient instructions/medications: Activity as Tolerated It is important to keep increasing your activity level after you leave the hosp ital. Moving around can help prevent blood clots, lung infection (pneumonia) an d other problems. Gradually increasing the number of times you are up moving ar ound will help you return to your normal activity level more quickly. Continue to increase the number of times you are up to the chair and walking daily to ret urn to your normal activity level. Begin to work toward your normal activity lev el at discharge. As tolerated; No driving until [facility]. Avoid pulling, pushing or lifting greater than 10 pounds. OT EVAL & TREAT PT EVAL & TREAT PET SITTER CONSULT SPEECH-LANGUAGE EVAL & TX Regular Diet You have no dietary restriction. Please continue with a healthy balanced diet. Report These Signs and Symptoms Please contact your doctor if you have any of the following symptoms: Call if t emperature greater than 101, incision red, drainage or odor noted from incision, pain that is uncontrolled with pain medication, numbness or weakness, vision ch anges, trouble with speech or slurring of speech, or any questions/concerns. Questions About Your Stay For questions or concerns regarding your hospital stay call the clinic at [phone]. If outside business hours please call the main hospital number ([phone]) and ask for the neurosurgery resident groundwater monitoring technician to be paged. Discharging attending physician: REYES NESBITT [[id number]] Incision Care *Keep your incision clean and dry. *May shower. May get incision wet 5 days following procedure. Wash gently, pat d ry. No lotions, creams ointments, hair gels/sprays to incision. *Do not submerge incision in tub, pool, hot tub, or alexis for 4 weeks. *Your incision should gradually look better each day. If you notice unusual swel ling, redness, drainage, have increasing pain at the site, or have a fever great er than 100 degrees, notify your physician immediately. Suture/Staple Removal You will need your britta removed at follow up appointment. Opioid (Narcotic) Safety Information OPIOID (NARCOTIC) PAIN MEDICATION SAFETY We care about your comfort, and believe you need opioid medications at this time to treat your pain. An opioid is a strong pain medication. It is only availab le by prescription for moderate to severe pain. Usually these medications are u sed for only a short time to treat pain, but sometimes will be prescribed for lo nger. Talk with your doctor or nurse about how long they expect you to need thi s medication. When used the right way, opioids are safe and effective medications to treat you r pain, even when used for a long time. Yet, when used in the wrong way, opioid s can be dangerous for you or others. Opioids do not work for everyone. Most p atients do not get full relief of their pain from opioid medication; full relief of your pain may not be possible. For your safety, we ask you to follow these instructions: *Only take your opioid medication as prescribed. If your pain is not controlled with the prescribed dose, or the medication is not lasting long enough, call yo doctor. *Do not break or crush your opioid medication unless your doctor or pharmacist s ays you can. With certain medications, this can be dangerous, and may cause susy th. *Never share your medications with others, even if they appear to have a good re ason. Never take someone else's pain medication-this is dangerous, and illegal (a crime). Overdoses and deaths have occurred. *Keep your opioid medications safe, as you would with james, in a lock box or sim ilar container. *Make sure your opioids are going to be secure, especially if you are around chi ldren or teens. *Talk with your doctor or pharmacist before you take other medications. *Avoid driving, operating machinery, or drinking alcohol while taking opioid claudia n medication. This may be unsafe. Pain medications can cause constipation. Constipation is bowel movements that ar e less often than normal. Stools often become very hard and difficult to pass. T his may lead to stomach pain and bloating. It may also cause pain when trying to use the bathroom. Constipation may be treated with suppositories, laxatives or stool softeners. A diet high in fiber with plenty of fluids helps to maintain re gular, soft bowel movements. Additional Discharge Instructions Follow up with your regular doctor and your day care aide. May resume plavix on 11/21/2019. May resume eliquis on 12/09/2019. Take aspirin daily starting tomorrow, 11/14 until you are able to resume taking your Plavix. A follow up CT chest is recommended in 12 months this may be arranged by your re gular doctor. Current Discharge Medication List START taking these medications Details acetaminophen (TYLENOL) 500 mg tablet Take two tablets by mouth every 6 hours as needed. Max of 4,000 mg of acetaminophen in 24 hours. PRESCRIPTION TYPE: OTC aspirin 81 mg chewable tablet Chew one tablet by mouth daily. May start aspirin on 11/14/2019. Continue Aspirin until you are able to resume taking plavix. Take with food. Qty: 90 tablet, Refills: 0 PRESCRIPTION TYPE: Normal dexAMETHasone (DECADRON) 2 mg tablet Taper schedule: 4 mg every 8 hours for 2 da ys, then 4 mg every 12 hours for 2 days, then 2 mg every 12 hours for 2 days, th en 2 mg every day for 2 days, then stop Qty: 26 tablet, Refills: 0 PRESCRIPTION TYPE: Normal levETIRAcetam (KEPPRA) 500 mg tablet Take one tablet by mouth twice daily for 12 days. Qty: 24 tablet, Refills: 0 PRESCRIPTION TYPE: Normal nicotine (NICODERM CQ STEP 2) 14 mg/day patch Apply one patch to top of skin as directed daily. Rotate patch location. Indications: stop smoking Qty: 28 patch, Refills: 0 PRESCRIPTION TYPE: Normal nicotine polacrilex (NICORETTE) [address] one each inside cheek (side of mo uth) every 2 hours as needed. Chew to soften and park in mouth between lip and g um. May use 1 piece per hour, not to exceed 24 per day for 12 weeks. May be used longer, if needed. Qty: 2 box, Refills: 0 PRESCRIPTION TYPE: Normal oxyCODONE (ROXICODONE) 5 mg tablet Take one tablet to three tablets by mouth german ry 3 hours as needed Qty: 56 tablet, Refills: 0 PRESCRIPTION TYPE: Normal senna/docusate (SENOKOT-S) 8.6/50 mg tablet Take one tablet by mouth twice daily . PRESCRIPTION TYPE: OTC CONTINUE these medications which have been CHANGED or REFILLED Details apixaban (ELIQUIS) 5 mg tablet Take one tablet by mouth twice daily. Hold for 4 weeks after surgery. May resume this medication on 12/09/2019. Qty: 60 tablet PRESCRIPTION TYPE: No Print clopiDOGrel (PLAVIX) 75 mg tablet Take one tablet by mouth daily. Continue to ho ld this medication for 10 days after surgery. May resume on 11/21/2019. Qty: 90 tablet PRESCRIPTION TYPE: No Print CONTINUE these medications which have NOT CHANGED Details albuterol sulfate (PROAIR HFA) 90 mcg/actuation aerosol inhaler Inhale 2 puffs b y mouth into the lungs every 6 hours as needed for Wheezing or Shortness of Anchor th. Shake well before use. PRESCRIPTION TYPE: Historical Med Comments: Pharmacist may choose either generic albuterol HFA, ProAir HFA, Ventol in HFA, or Proventil HFA based on what is cheapest for the patient. amLODIPine (NORVASC) 2.5 mg tablet Take 2.5 mg by mouth daily. PRESCRIPTION TYPE: Historical Med atorvastatin (LIPITOR) 80 mg tablet Take 80 mg by mouth daily. PRESCRIPTION TYPE: Historical Med budesonide-formoteroL (SYMBICORT HFA) 160-4.5 mcg/actuation inhalation Inhale 2 puffs by mouth into the lungs twice daily. PRESCRIPTION TYPE: Historical Med diclofenac (VOLTAREN) 1 % topical gel Apply 4 g topically to affected area as Ne eded. PRESCRIPTION TYPE: Historical Med EPINEPHrine (EPIPEN 2-VARUN) 1 mg/mL injection pen (2-Pack) Inject 0.3 mg into the muscle once as needed. Inject 0.3 mg (1 Pen) into thigh if needed for anaphylac tic reaction. May repeat in 5-15 minutes if needed. PRESCRIPTION TYPE: Historical Med insulin glargine (LANTUS) 100 unit/mL vial Inject 40 Units under the skin at bed time daily. PRESCRIPTION TYPE: Historical Med isosorbide mononitrate SR (IMDUR) 60 mg tablet Take 60 mg by mouth every morning . PRESCRIPTION TYPE: Historical Med liraglutide (VICTOZA) 0.6 mg/0.1 mL (18 mg/3 mL) injection pen Inject 1.8 mg und er the skin daily. PRESCRIPTION TYPE: Historical Med metFORMIN (GLUCOPHAGE) 1,000 mg tablet Take 1,000 mg by mouth twice daily with leydi yañez. PRESCRIPTION TYPE: Historical Med metoprolol XL (TOPROL XL) 50 mg extended release tablet Take 50 mg by mouth aimee y. PRESCRIPTION TYPE: Historical Med nitroglycerin (NITROSTAT) 0.[address] 0.4 mg under tongue every 5 minute s as needed for Chest Pain. Max of 3 tablets, call 911. PRESCRIPTION TYPE: Historical Med Scheduled appointments: Nov 25, 2019 1:30 PM MANAGER SOUND Post - Op with RITCHIE Figueroa [facility] (NeuroSurgery) [address] [facility] [id number] Nov 25, 2019 3:00 PM MANAGER SOUND (Arrive by 2:45 PM) New Patient with Bernard Perales MD [facility] ([facility] Exam) [address] [facility] [address] Dec 12, 2019 1:30 PM MANAGER SOUND Post - Op with Reyes Nesbitt MD [facility] (NeuroSurgery) [address] [facility] [id number] Dec 12, 2019 2:00 PM MANAGER SOUND Return Patient with Darion Christianson MD [facility] ([facility] Radiation Oncology) [address] [facility] [address] Pending items needing follow up: Final pathology pending at time of discharge Signed: RITCHIE Pat 11/13/2019 cc: Primary Care Physician: Sissy Kingsley Verified Referring physicians: Blaise Shrestha MD Additional provider(s): GER SOUND documented in this encounter Discharge Instructions * Instructions* Sara Villafana RN - 11/13/2019 10:53 AM MANAGER SOUND Benedicto Rios Left Parietal Craniotomy for Tumor Resection on 11/11/[address] Nesbitt Neurosurgery Discharge Instructions Contact information: ? Call Neurosurgery if you have questions or are experiencing problems at [facility] [phone]. Post-operative wound care: ? Your incision has britta in place. Your incision may be open to air. ? Keep your incision dry for 5 days. Shower neck down until 11/16/19. Starting 07/27 use baby shampoo to wash incision daily, pat dry and leave open to air. ? Do not submerge (pool/tub) your incision under water at all for 4 weeks. ? Have someone look at your incision every day. It should look the same or cynthia r daily. ? Do not apply any ointment, cream or lotions to incision line. Activity restrictions: ? Avoid pushing, pulling, lifting or bending more than 10 pounds (about a gallon of milk). If you hold children, they should be placed in your lap or crawl into lap if old enough. ? Do NOT drive until you are cleared by your physician. Post-operative pain and medications: ? Please use your pain medications and muscle relaxers as prescribed. ? Pain medications can make you constipated. You may take a stool softener and m iralax. ? Do NOT take Ibuprofen or NSAIDS (Aleve, Motrin, Naproxen) until Doctor approve d. ? Tylenol is approved for pain control. This is available over the counter. Follow up appointment: ? 11/25/19 @ 1:30 with Nurse Practitioner for staple removal and follow up. ? 12/12/19 @ 1:[address] Nesbitt Neurosurgeon for surgical follow up. Please contact Neurosurgery if you develop any of the following: ? New or worsening changes in memory, confusion, speech or vision. ? Seizure or new seizure like activity. ? Fever 101 or greater. Redness, swelling, continuous oozing, fluid collection, warmth or bad odor near the incision site. ? Intense pain that is getting worse or unrelieved by pain medications or muscle relaxers. GER SOUND documented in this encounter Medications at Time of Discharge Start Date End Date Medication Sig Dispensed Refills 11/13/2019 acetaminophen (TYLENOL) Take two 0 500 mg tablet tablets by mouth every 6 hours as needed. Max of 4,000 mg of acetaminophen in 24 hours. albuterol sulfate (PROAIR Inhale 2 0 HFA) 90 mcg/actuation puffs by aerosol inhaler mouth into the lungs every 6 hours as needed for Wheezing or Shortness of Breath. Shake well before use. amLODIPine (NORVASC) 2.5 Take 2.5 mg 0 mg tablet by mouth daily. 12/09/2019 apixaban (ELIQUIS) 5 mg Take one 60 tablet 0 tablet tablet by mouth twice daily. Hold for 4 weeks after surgery. May resume this medication on 12/09/2019. 11/14/2019 aspirin 81 mg chewable Chew one 90 tablet 0 tablet tablet by mouth daily. May start aspirin on 11/14/2019. Continue Aspirin until you are able to resume taking plavix. Take with food. atorvastatin (LIPITOR) 80 Take 80 mg by 0 mg tablet mouth daily. budesonide-formoteroL Inhale 2 0 (SYMBICORT HFA) 160-4.5 puffs by mcg/actuation inhalation mouth into the lungs twice daily. 11/21/2019 clopiDOGrel (PLAVIX) 75 Take one 90 tablet 0 mg tablet tablet by mouth daily. Continue to hold this medication for 10 days after surgery. May resume on 11/21/2019. 11/13/2019 dexAMETHasone (DECADRON) Taper 26 tablet 0 2 mg tablet schedule: 4 mg every 8 hours for 2 days, then 4 mg every 12 hours for 2 days, then 2 mg every 12 hours for 2 days, then 2 mg every day for 2 days, then stop diclofenac (VOLTAREN) 1 % Apply 4 g 0 topical gel topically to affected area as Needed. EPINEPHrine (EPIPEN Inject 0.3 mg 0 2-VARUN) 1 mg/mL injection into the pen (2-Pack) muscle once as needed. Inject 0.3 mg (1 Pen) into thigh if needed for anaphylactic reaction. May repeat in 5-15 minutes if needed. insulin glargine (LANTUS) Inject 40 0 100 unit/mL vial Units under the skin at bedtime daily. isosorbide mononitrate SR Take 60 mg by 0 (IMDUR) 60 mg tablet mouth every morning. liraglutide (VICTOZA) 0.6 Inject 1.8 mg 0 mg/0.1 mL (18 mg/3 mL) under the injection pen skin daily. metFORMIN (GLUCOPHAGE) Take 1,000 mg 0 1,000 mg tablet by mouth twice daily with meals. metoprolol XL (TOPROL XL) Take 50 mg by 0 50 mg extended release mouth daily. tablet 11/14/2019 nicotine (NICODERM CQ Apply one 28 patch 0 STEP 2) 14 mg/day patch to top patchIndications: smoking of skin as cessation directed daily. Rotate patch location. Indications: stop smoking 11/13/[address] one 2 box 0 (NICORETTE) 4 mg gum each inside cheek (side of mouth) every 2 hours as needed. Chew to soften and park in mouth between lip and gum. May use 1 piece per hour, not to exceed 24 per day for 12 weeks. May be used longer, if needed. nitroglycerin (NITROSTAT) Place 0.4 mg 0 0.4 mg tablet under tongue every 5 minutes as needed for Chest Pain. Max of 3 tablets, call 911. 11/13/2019 senna/docusate Take one 0 (SENOKOT-S) 8.6/50 mg tablet by tablet mouth twice daily. 11/13/2019 11/25/2019 levETIRAcetam (KEPPRA) Take one 24 tablet 0 500 mg tablet tablet by mouth twice daily for 12 days. 11/13/2019 11/24/2019 oxyCODONE (ROXICODONE) 5 Take one 56 tablet 0 mg tablet tablet to three tablets by mouth every 3 hours as needed documented as of this encounter Progress Notes * Corrigan (Luli Sow RN - 11/13/2019 12:08 PM MANAGER SOUND Discharge orders in.Neurosurgery discharge nurse in room reviewing instructions with patient and patient's brother. All questions answered by DC nurse or this R N. All lines removed. Patient taken to [place] pharmacy by [employer] via wheel chair with all valuables. GER SOUND * Crystal Torres, SOFTWARE DEVELOPMENT MANAGER-PACKER DRIED BEEF - 11/13/2019 11:18 AM MANAGER SOUND Neurosurgery Progress Note Admission Date: 11/06/2019 LOS: 7 days S: Patient seen earlier this AM. Hopeful for discharge today. O: Vital Signs: 24 Hour Range BP: (103-152)/(70-87) Temp: [36.4 C (97.5 F)-37.1 C (98.8 F)] Pulse: [86-98] Respirations: [18 PER MINUTE-19 PER MINUTE] SpO2: [96 %-100 %] Physical Exam: Awake and alert States name, place, year correctly Right hemianopsia stable SOSA to command with strength grossly intact at bed level Incision C/D/I, dressing removed A/P: 54 y.o. male Active Problems: Left-sided nontraumatic intracerebral hemorrhage (HCC) Vasogenic edema (HCC) Other headache syndrome Hypertension, essential Hyperlipidemia, mixed Diabetes mellitus (HCC) Current smoker COPD (chronic obstructive pulmonary disease) (HCC) Chronic atrial fibrillation (HCC) CAD (coronary artery disease), [place] coronary artery Neurologically [id number] status Regular diet CT C/A/P no evidence of primary or metastatic disease. Few tiny nodules Which m ay be granulomas or scars-recommend follow up CT chest in 12 months. Dex 4mg q 6 hours--taper on dc Continue holding [employer] plavix for 10 days post op and eliquis for 4 weeks post op. Okay for ASA starting 11/14 until able to resume plavix. PT/OT; Rehab following. PT post op eval--home with outpatient. PET SITTER outpatient. Oncology consulted--request ordered for Dr. Perales f/u Rad onc following--will follow up after surgery to discuss path and treatment op tions--arramged Prophylaxis: A) GI: PPI B) Lines: No C) Urinary Catheter: No D) Antibiotic Usage: No E) VTE: Mechanical prophylaxis; Sequential compression device; No anticoagulati on until 48 hours post operative; contraindication due to bleeding risk F) Restraints: Patient assessed for need for restraints. Please call [phone] with any questions. RITCHIE Pat [id number] GER SOUND * Iris Fermin RT - 11/12/2019 5:59 PM MANAGER SOUND RT Adult Assessment Note NAME:Benedicto Rios :1965 AGE : 54 y.o. ADMISSION DATE: 11/06/2019 DAYS ADMITTED: LOS: 6 days RT Treatment Plan: Protocol Plan: Medications Albuterol: MDI PRN Protocol Plan: Procedures Monitoring: Pulse oximetry continuous during night/sleep Comment: SAEED Additional Comments: Impressions of the patient: Pt comfortably resting in bed on RA, in NAD at this time Intervention(s)/outcome(s): RT eval Patient education that was completed: n/a Recommendations to the care team: n/a Vital Signs: Pulse: 89 RR: 18 PER MINUTE SpO2: 96 % O2 Device: Liter Flow: O2%: 21 % Breath Sounds: Clear (implies normal) Respiratory Effort: Non-Labored GER SOUND * Michelle Gillespie RN - 11/12/2019 5:03 PM MANAGER SOUND Patient arrived to room # (9899) via bed accompanied by RN. Patient transferred to the bed without assistance. Bedside safety checks completed. Initial patient assessment completed. Refer to flowsheet for details. Admission skin assessment completed with: FARSHAD Cohen Pressure injury present on arrival?: No 1. Head/Face/Neck: No 2. Trunk/Back: No 3. Upper Extremities: No 4. Lower Extremities: No 5. Pelvic/Coccyx: No 6. Assessed for device associated injury? Yes 7. Malnutrition Screening Tool (Nursing Nutrition Assessment) Completed? No See Doc Flowsheet for additional wound details. INTERVENTIONS: n/a GER SOUND * Shanae Mazariegos, OT - 11/12/2019 3:00 PM MANAGER SOUND OCCUPATIONAL THERAPY RE-ASSESSMENT NOTE Name: Benedicto Rios : 1965 Age: 54 y.o. Admission Date: 11/06/2019 LOS: 6 days Mobility Patient Turn/Position: Chair Progressive Mobility Level: Walk laps Distance Walked (feet): 650 ft Level of Assistance: Assist X1 Assistive Device: None Time Tolerated: 11-30 minutes Activity Limited By: No limitations Subjective Pertinent Dx per Physician: Pt endorses 4-6 week history of headaches with acute worsening in the last three days associated with word finding difficulty, inter mittent diplopia and imbalance. CT head at OSH with L parieto-occipital hemorrha ge with SAH component and possible underlying mass. LEFT PARIETAL CRANIOTOMY FOR TUMOR RESECTION (Left) on 11/11. Precautions: Falls;Vision/Cognitive Deficits Pain / Complaints: Patient agrees to participate in therapy Objective Psychosocial Status: Willing and Cooperative to Participate Home Living Type of Home: Apartment Home Layout: One Level Bathroom Shower / Tub: Tub/Shower Unit;Walk-in Shower Home Equipment: Shower/Tub Bench Prior Function Level Of [place]: Independent with ADLs and functional transfers;Independen t with homemaking w/ ambulation Lives With: Spouse Receives Help From: None Needed Vocational: On Disability Vision Comment: Significant R visual field cut. Educated pt on scanning techniques. Pt able to utilize those techniques during session. ADL's Where Assessed: Chair Eating Assist: Stand By Assist Eating Deficits: Setup LE Dressing Assist: Stand By Assist LE Dressing Deficits: Don/Doff R Sock;Don/Doff L Sock Functional Transfer Assist: Minimal Assist Comment: Pt seated in chair upon OT arrival. Pt able to maurisio socks prior to ambu lation. Pt ambulates in hallway with CGA progressing to SBA. Pt able to use visu al scanning techniques to avoid obstacles on R side in hallway, however, noted t o intermittently run into things when distracted. Pt educated to not resume driv ing; he verbalized a good understanding. Pt returned to chair at end of session and left with all needs met and chair alarm set. Cognition Overall Cognitive Status: Impaired Expression: Expressive Aphasia UE AROM Overall BUE AROM WNL: Yes Coordination: Mild Delay UE Strength / Tone Overall Strength / Tone: 4/5 ;Right;Left Education Persons Educated: Patient Barriers To Learning: Cognitive Deficits Teaching Methods: Verbal Instruction;Demonstration Patient Response: Verbalized and Demo Understanding Topics: Role of OT, Goals for Therapy;ADL Compensatory Techniques Goal Formulation: With Patient Assessment Assessment: Decreased ADL Status;Decreased UE Strength;Decreased Cognition;Decre ased Endurance;Visual Deficit;Decreased Self-Care Trans;Decreased High-Level ADL s Plan OT Frequency: 2-3x/week OT Plan for Next Visit: mobility, grooming at the sink, toileting, visual scanni ng techniques ADL Goals Patient Will Perform All ADL's: w/ Modified [place] Functional Transfer Goals Pt Will Perform All Functional Transfers: Modified Independent OT Discharge Recommendations Recommendation: Home/prior living situation Recommendation for Therapy Post Discharge: Outpatient Therapist: Shanae Mazariegos OTR/Jessica [id number] Date: 11/12/2019 GER SOUND * Cathy Bowling - 11/12/2019 1:54 PM MANAGER SOUND SPEECH-LANGUAGE PATHOLOGY SPEECH-LANGUAGE ASSESSMENT EVALUATION SUMMARY A speech language evaluation was completed which revealed mild aphasia, however with moderate to severe alexia and agraphia. Auditory comprehension is character ized by fair understanding of yes/no questions and straight forward multistep in structions. Comprehension falters as information provided becomes longer and mor e complex. Verbal expression is characterized by ability to converse at conversa tion level, however with frequent hesitations and word finding difficulties. No evidence of use of paraphasias. Reading comprehension is intact for single short words, however patient encounters significant difficulty with longer stimuli. P atient describes recognizing words, but having difficulty making sense of their meaning. Written expression was severely impaired; patient able to write his fir st and last name (likely motor memory), however demonstrated significant difficu lty writing short words to dictation. Patient will greatly benefit from ongoing PET SITTER intervention to address impairments. RECOMMENDATIONS -Ongoing PET SITTER intervention during acute hospital stay -PET SITTER intervention at next level of care (OP) -Allow ample time for patient to express his wants and needs Western Aphasia Battery - Revised (WAB-R): Bedside Form Section Task Score Notes Spontaneous speech Information content 10/10 Fluency, grammatical competence, and paraphasias 9/10 Occasional word finding hesitations Auditory verbal comprehension Yes/no questions 10/10 Sequential commands 6/10 Pointed with the pen to the paper twice. Did not plac e pen on paper Repetition Repetition /10 Could not repeat "Quick brown sanchez" phrase Naming and word-finding Object naming 10/10 Bedside Aphasia Score 86.6/100 Mild Reading: -Identification of egocentric word given a F3; patient able to identify his name -Identification of short word given F3; 3/3 accurate independently -Oral reading of short words; 1/3 accurate independently, in two more opportunit ies patient provided target word and an additional word (e.g. "applepie" for odalis le, "watermelon" for water) -Oral reading of sentences; patient did not attempt this task stating it was too difficult Writing: -Egocentric information; patient was able to write first and last name given amp le time. Unable to write his address -Words to dictation; patient attempted to write single word to dictation, howeve r attempt was grossly illegible, however with some visual similarities to word Objective* Relevant Med Background: Benedicto Rios is a 54 y.o. male with history of HTN, HLD, NH with PCI/stenting x5 on plavix, chronic atrial fibrillation on eliquis who p resented to OSH on 11/06/19 with worsening headache, diplopia, imbalance and wor d finding difficulty.CT head at OSHnotedL parieto-occipital hemorrhage wit h SAH component and possible underlying mass.He was then transferred to [facility] a nd admitted to NEICU. 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 Plavix and Eliquis was held and he was taken to the OR on 11/11 for resection. Pt endorses 4-6 week history of headaches with acute worsening in the last three days associated with word finding difficulty, intermittent diplopia and imbalance. MRI 11/12/2019 IMPRESSION: Left parieto-occipital necrotic mass resection. There is linear enhancement at the deep periatrial resection margin and similar surrounding FLAIR hyperintensities. Handedness: Right Lives With: Spouse Receives Help From: None Needed Vocational: On Disability Psychosocial Status: Willing and Cooperative to Participate Persons Present: None Subjective* Pain: Patient has no complaint of pain Trach Presence: No Feeding Tube Present During Eval: None Education* Persons Educated: Patient Barriers To Learning: Cognitive Deficits, Impaired Communication Interventions: Staff Educated Teaching Methods: Verbal Topics: Aphasia Patient Response: Verbalized Understanding Goal Formulation: With Patient Speech Language Goals* Goal : Patient will demonstrate understanding of compensatory strategies for wor d finding difficulties. Goal : Patient will participate in ongoing assessment of reading and writing Therapist: Cathy Bowling BA, PET SITTER Student Date: 11/12/2019 GER SOUND Associated attestation - Kate Friend MS,CCC-PET SITTER - 11/12/2019 3:15 PM MANAGER SOUND Attestation: I was present throughout the evaluation with this patient. I person ally reviewed the plan and recommendations for this patient as outlined by the [facility]-language pathology student. Kate Friend MS,CCC-PET SITTER, Voalte ext. [phone] * Ron Cardoza MD - 11/12/2019 10:50 AM MANAGER SOUND Neuro Critical Care Progress Note Benedicto Rios Admission Date: 11/06/2019 LOS: 6 days Full Code ATTESTATION This note is associated with the NEICU team note dated today. Date of Service: 11/12/2019 54 year old male with past medical history significant for left parietal brain m ass s/p craniotomy and resection. MRI from this morning reviewed. CAD - PCI stenting x5 on plavix Chronic AFib - eliquis - will hold for now -timing up to neurosurgery Continue metoprolol 25 bid HTN HLD DM - continue glargine 40 and high dose SSI Consider restarting ASA 81 tomorrow or when safe to resume after surgery due to his history of cardiac stents. Plavix resumption when safe as per neurosurgery. Medical History: Diagnosis Date Brain mass left parietal CAD (coronary artery disease), [place] coronary artery Chronic atrial fibrillation (HCC) COPD (chronic obstructive pulmonary disease) (HCC) Current smoker Diabetes mellitus (HCC) Hyperlipidemia, mixed Hypertension, essential I have seen, personally fully evaluated, and discussed patient with the NEICU te am. I agree with the objective findings and agree with the plan of care as docu mented by the resident with the exceptions noted. The patient is critically ill with . Active hospital problems include: Active Problems: Left-sided nontraumatic intracerebral hemorrhage (HCC) Vasogenic edema (HCC) Other headache syndrome Hypertension, essential Hyperlipidemia, mixed Diabetes mellitus (HCC) Current smoker COPD (chronic obstructive pulmonary disease) (HCC) Chronic atrial fibrillation (HCC) CAD (coronary artery disease), [place] coronary artery I spent 45 minutes (excluding time spent performing or supervising any procedur es) providing and personally directing critical care services including -review of serial neurologic, hemodynamic, respiratory, telemetry, laboratory an d imaging data -management of fluids/electrolytes, antibiotics, vasoactive medications, gas exc hange/mechanical ventilation, sepsis protocol, ICU prophylaxis, and ICU core me asures -pain/sedation/delirium management -medication review and management -organization and coordination of care with patient (or surrogate), ICU team and consulting services. -directing the formulation of the overall plan of care outlined below. Dispo: This patient is critically ill with dysfunction of at least one organ sys tem and is at risk for life threatening deterioration necessitating complex [facility] decision making and ongoing provision of ICU care. Staff name: Ron Cardoza MD Date: 11/12/2019 ASSESSMENT/PLAN Patient Active Problem List Diagnosis Date Noted Hypertension, essential Hyperlipidemia, mixed Diabetes mellitus (HCC) Current smoker COPD (chronic obstructive pulmonary disease) (HCC) Chronic atrial fibrillation (HCC) CAD (coronary artery disease), [place] coronary artery Brain tumor (HCC) 11/10/2019 Left-sided nontraumatic intracerebral hemorrhage (HCC) 11/06/2019 Vasogenic edema (HCC) 11/06/2019 Other headache syndrome 11/06/2019 Benedicto Rios is a 54 y.o. male with history of HTN, HLD, NH with PCI/stenting x5 on plavix, chronic atrial fibrillation on eliquis who presented to OSH on with worsening headache, diplopia, imbalance and word finding difficulty. CT head at OSH noted L parieto-occipital hemorrhage with SAH component and possible underlying mass.He was then transferred to [facility] and [facility]. 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 Plavix and Eliquis was held and he was taken t o the OR on 11/11 for resection. He is admitted back to NEICU post operatively. Hospital and ICU course: 11/06: admitted to NEICU 11/11: Admitted back to NEICU post op Neuro: Left parietal-occipital mass with recent hemorrhage(11/06/19) Vasogenic edema - MRI head 11/06: Necrotic enhancing hemorrhagic mass in the left parieto-occipi meek lobe, - CT chest abdomen and pelvis 11/06: negative for mass or lymph node enlargement . - Radiation Oncology and Oncology following- plan pending pathology - Decadron - Keppra 500 mg BID for seizure prophylaxis - MRI pending - PT/OT Sedation/Pain Management: Head pain - pain improved - continue PRN tylenol, fentanyl and oxycodone - Assess for delirium daily Cardiac: HTN - SBP goal:< 140 -continue Norvasc- titrate up as needed - PRN labetalol HLD - lipitor CAD with PCI x5 (01/2019) - Holding Plavix and ASA Chronic Atrial Fibrillation - Holding eliquis - continue Metoprolol Respiratory: Current smoker COPD Pulmonary Nodules on CT Stable on RA - Nicotine patch - continue [employer] symbicort and PRN albuterol -CPAP at night - nodules may be granulomas/scarring- will need f/u imaging in 6-12 months GI: GERD - Feeding:DM diet - continue PPI - neurosurgery bowel regimen, ensure daily BM (last 11/12) Heme: On Chronic Anticoagulation - initially reversed at OSH with Kcentra - continue holding ASA, Eliquis and Plavix - Hgb 13.8, Plt 243 - daily CBC - SCD's ID: - WBC: 15.4 - leukocytosis without fever- reactionary with surgery and steroid therapy - Ancef for post op prophylaxis - trend CBC Renal: -Daily BMP - BUN 17, Cr 0.76 - Aim for normovolemia Intake/Output Summary (Last 24 hours) at 11/12/2019 1050 Last data filed at 11/12/2019 0800 Gross per 24 hour Intake 2300 ml Output 1540 ml Net 760 ml Endocrine: Diabetes Mellitus - HDCF - Continue lantus, Victoza - monitor for hyperglycemia while on steroid therapy - Blood glucose goal 100-180mg/dl FEN: - IVF:None - Electrolyte replacement per protocol - Magnesium goal >2.0, i-Sohan goal > 1.0, Potassium goal >4.0 mEq/L Primary service:NEICU Consults:Neurosurgery SUBJECTIVE Benedicto Rios is a 54 y.o. male. Overnight Events: No new events noted. Patient reports improved head pain, denies nausea. OBJECTIVE Vital Signs: Last Filed Vital Signs: 24 Hour Ra nge BP: 121/82 (11/12 0900) ABP: 104/65 (11/12 0400) Temp: 37.2 C (99 F) (11/12 0800) Pulse: 82 (11/12 0900) Respirations: 16 PER MINUTE (11/11 1712) SpO2: 99 % (11/12 09) BP: (97-134)/(54-113) ABP: (99-163)/(43-83) Temp: [36.7 C (98 F)-37.2 C (99 F)] Pulse: [66-102] Respirations: [16 PER MINUTE] SpO2: [92 %-99 %] Intensity Pain Scale (Self Report): (not recorded) Vitals: 11/06/19 0402 11/07/19 0500 11/11/19 0400 Weight: 88 kg (194 lb 0.1 oz) 87.8 kg (193 lb 9 oz) 89.9 kg (198 lb 3.1 oz) Artificial airway: None Ventilator/ Respiratory Therapy: No Vent weaning trial: Not applicable Lines: Peripheral Line Drains: None Critical Care Vitals: ICP Monitoring: Hemodynamics/Oxycalcs: Intake/Output Summary: (Last 24 hours) Intake/Output Summary (Last 24 hours) at 11/12/2019 1050 Last data filed at 11/12/2019 0800 Gross per 24 hour Intake 2300 ml Output 1540 ml Net 760 ml Stool Occurrence: 1 Physical Exam: Blood pressure 121/82, pulse 82, temperature 37.2 C (99 F), height 175.3 cm (69.02"), weight 89.9 kg (198 lb 3.1 oz), SpO2 99 %. Neuro: Mental Status: alert, oriented x 4 Cranial Nerves: - Face symmetric, speech clear, tongue midline - Pupil exam: Size: 3 Reactivity : brisk - EOM: intact with right homonomous hemianopsia Motor: Strength: 5/5; in all extremities Sensory: normal Coordination: finger to nose without ataxia Lungs: clear to auscultation bilaterally Heart: regular rate and rhythm, S1, S2 normal, no murmur, click, rub or gallop Abdomen: soft, non-tender. Bowel sounds normal. No masses, no organomegaly Extremities: extremities normal, atraumatic, no cyanosis or edema Skin: Skin color, texture, turgor normal. No rashes or lesions Point of Care Testing: (Last 24 hours) Glucose: (!) 214 (11/11/19 1740) POC Glucose (Download): (!) 142 (11/12/19 06) Lab Review: Pertinent labs reviewed Radiology and Other Diagnostic Procedures Review: Pertinent radiologic and diag nostic procedures reviewed. Ron Cardoza MD Date: 11/12/[phone] GER SOUND * Crystal Torres, SOFTWARE DEVELOPMENT MANAGER-PACKER DRIED BEEF - 11/12/2019 10:37 AM MANAGER SOUND Neurosurgery Progress Note Admission Date: 11/06/2019 LOS: 6 days S: Patient seen earlier this AM with resident team. Doing well post-operatively. Discussed plans to transfer to floor today and questions answered. O: Vital Signs: 24 Hour Range BP: (97-134)/(54-113) ABP: (99-163)/(43-83) Temp: [36.7 C (98 F)-37.2 C (99 F)] Pulse: [66-102] Respirations: [16 PER MINUTE] SpO2: [92 %-99 %] Physical Exam: Awake and alert States name, place, year correctly Right hemianopsia SOSA to command with strength grossly intact at bed level Incision with OR dressing C/D/I A/P: 54 y.o. male Active Problems: Left-sided nontraumatic intracerebral hemorrhage (HCC) Vasogenic edema (HCC) Other headache syndrome Hypertension, essential Hyperlipidemia, mixed Diabetes mellitus (HCC) Current smoker COPD (chronic obstructive pulmonary disease) (HCC) Chronic atrial fibrillation (HCC) CAD (coronary artery disease), [place] coronary artery Neurologically stable-transfer to Med-surg status MRI reviewed Regular diet CT C/A/P no evidence of primary or metastatic disease. Few tiny nodules Which m ay be granulomas or scars-recommend follow up CT chest in 12 months. Dex 4mg q 6 hours Continue holding [employer]ERTY plavix and eliquis will discuss restart plan with Dr. Nesbitt PT/OT; Rehab following. PT post op eval--home with outpatient. PET SITTER eval pending. Oncology consulted--awaiting path results Rad onc following--will follow up after surgery to discuss path and treatment op tions Prophylaxis: A) GI: PPI B) Lines: No C) Urinary Catheter: No D) Antibiotic Usage: No E) VTE: Mechanical prophylaxis; Sequential compression device; No anticoagulati on until 48 hours post operative; contraindication due to bleeding risk F) Restraints: Patient assessed for need for restraints. Please call [phone] with any questions. RITCHIE Pat [id number] GER SOUND * Roopa Loomis, PT - 11/12/2019 9:27 AM MANAGER SOUND PHYSICAL THERAPY RE- ASSESSMENT NOTE Name: Benedicto Rios : 1965 Age: 54 y.o. Admission Date: 11/06/2019 LOS: 6 days Mobility Patient Turn/Position: Chair Progressive Mobility Level: Walk laps Distance Walked (feet): 620 ft Level of Assistance: Assist X1 Assistive Device: None Time Tolerated: 11-30 minutes Activity Limited By: No limitations Subjective Significant hospital events: Pt endorses 4-6 week history of headaches with acut e worsening in the last three days associated with word finding difficulty, inte rmittent diplopia and imbalance. CT head at OSH with L parieto-occipital hemorrh age with SAH component and possible underlying mass. LEFT PARIETAL CRANIOTOMY FO R TUMOR RESECTION (Left) on 11/11. Mental / Cognitive Status: Alert;Cooperative;Follows Commands Pain: Patient has no complaint of pain Bed Mobility/Transfer Bed Mobility: Supine to Sit: Modified Independent;Head of Bed Elevated;No Rail Transfer Type: Sit to/from Stand Transfer: Assistance Level: To/From;Bed;Independent Transfer: Assistive Device: None End Of Activity Status: Up in Chair;Nursing Notified;Instructed Patient to Reque st Assist with Mobility;Instructed Patient to Use Call Light(pads alarm activate d) Balance 4 Item Dynamic Gait Index: Assessed Gait Level Surface: 3 - Normal: Walks 20', no assistive devices, good speed, no evidence for imbalance, normal gait pattern Change in Gait Speed: 2 - Mild Impairment: Is able to change speed but demonstra keven mild gait deviations, or not gait deviations but unable to achieve a signifi cant change in velocity, or uses an assistive device. Gait with Horizontal Head Turns: 3 - Normal: Performs head turns smoothly with n o change in gait. Gait with Vertical Head Turns: 2 - Mild Impairment: Performs head turns smoothly with slight change in gait velocity, ie., minor disruption to smooth gait path or uses walking aid. 4 Dynamic Gait Index Total : 10 out of 12 4 Dynamic Gait Index Fall Risk: Less than 10 - Increased Risk for Falls Gait Gait Distance: 620 feet Gait: Assistance Level: Standby Assist(cues for head turn right for loss of visi on) Gait: Assistive Device: None Gait: Descriptors: Pace: Normal;Pathway deviations Stairs: Number Climbed: 3 Stairs: Descriptors: Ascend;Descend;Reciprocal Stairs: Assistance Level: Standby Assist Stairs: Assistive Device: One Rail Education Persons Educated: Patient Patient Barriers To Learning: None Noted Teaching Methods: Verbal Instruction Patient Response: Verbalized Understanding Topics: Plan/Goals of PT Interventions;Importance of Increasing Activity;Recomme nd Continued Therapy Assessment/Progress Impaired Mobility Due To: Impaired Balance Assessment/Progress: Should Improve w/ Continued PT Goals Goal Formulation: With Patient Time For Goal Achievement: 3 days Patient Will Ambulate: Greater than 200 Feet, w/ No Device, w/ Stand By Assist Other Goal: Will pass balance test with low fall risk score. Plan Treatment Interventions: Mobility Training;Balance Activities Plan Frequency: 3-5 Days per Week PT Plan for Next Visit: Larger balance test. PT Discharge Recommendations Recommendation: Home/prior living situation Recommendation for Therapy Post Discharge: Outpatient(for balance) Patient Currently Requires Equipment: None Therapist: Roopa Loomis, PT Date: 11/12/2019 T * Crystal Richards, SOFTWARE DEVELOPMENT MANAGER-PACKER DRIED BEEF - 11/12/2019 6:15 AM MANAGER SOUND Neuro Critical Care Progress Note Benedicto Rios Admission Date: 11/06/2019 LOS: 6 days Full Code ASSESSMENT/PLAN Patient Active Problem List Diagnosis Date Noted Hypertension, essential Hyperlipidemia, mixed Diabetes mellitus (HCC) Current smoker COPD (chronic obstructive pulmonary disease) (HCC) Chronic atrial fibrillation (HCC) CAD (coronary artery disease), [place] coronary artery Brain tumor (HCC) 11/10/2019 Left-sided nontraumatic intracerebral hemorrhage (HCC) 11/06/2019 Vasogenic edema (HCC) 11/06/2019 Other headache syndrome 11/06/2019 Benedicto Rios is a 54 y.o. male with history of HTN, HLD, NH with PCI/stenting x5 on plavix, chronic atrial fibrillation on eliquis who presented to OSH on with worsening headache, diplopia, imbalance and word finding difficulty. CT head at OSH noted L parieto-occipital hemorrhage with SAH component and possible underlying mass.He was then transferred to [facility] and admitted to NEICU. 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 Plavix and Eliquis was held and he was taken t o the OR on 11/11 for resection. He is admitted back to NEICU post operatively. Hospital and ICU course: 11/06: admitted to NEICU 11/11: Admitted back to NEICU post op Neuro: Left parietal-occipital mass with recent hemorrhage(11/06/19) Vasogenic edema - MRI head 11/06: Necrotic enhancing hemorrhagic mass in the left parieto-occipi meek lobe, - CT chest abdomen and pelvis 11/06: negative for mass or lymph node enlargement . - Radiation Oncology and Oncology following- plan pending pathology - Decadron - Keppra 500 mg BID for seizure prophylaxis - MRI pending - PT/OT Sedation/Pain Management: Head pain - pain improved - continue PRN tylenol, fentanyl and oxycodone - Assess for delirium daily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 Hemodynamics/Oxycalcs: Intake/Output Summary: (Last 24 hours) Intake/Output Summary (Last 24 hours) at 11/07/2019 0705 Last data filed at 11/07/2019 0600 Gross per 24 hour Intake 1637.5 ml Output 1225 ml Net 412.5 ml Stool Occurrence: 1 Physical Exam: Blood pressure 120/79, pulse 75, temperature 36.8 C (98.3 F), height 175.3 c m (69.02"), weight 87.8 kg (193 lb 9 oz), SpO2 98 %. Fer coma score: E: 4 - Opens eyes on own M: 6 - Follows simple motor commands V: 5 - Alert and oriented Neuro: Mental Status: Aox4 Cranial Nerves: Slight decrease in sensation throughout left face - Pupil exam: Size: 3/3 Reactivity: Brisk BL Lungs: clear to auscultation bilaterally Heart: irregularly irregular rhythm, S1, S2 normal Abdomen: soft, non-tender. Bowel sounds normal. No masses, no organomegaly Extremities: extremities normal, atraumatic, no cyanosis or edema Skin: Skin color, texture, turgor normal. No rashes or lesions Point of Care Testing: (Last 24 hours) Glucose: (!) 220 (11/07/19 0443) POC Glucose (Download): (!) 194 (11/07/19 0700) Lab Review: Pertinent labs reviewed Radiology and Other Diagnostic Procedures Review: Pertinent radiologic and diag nostic procedures reviewed. Stef Frank APRN Date: 11/07/[phone] I spent 40 minutes managing the care of this patient. Mr. Rios is critically il l with intracranial hemorrhage complicated by chronic anti platelet use. Cares i ncluded: detailed neurologic and systems exam, medication review, laboratory stacey a review and interpretation, electrolyte management, review of available imaging , DVT/PE prophylaxis review, diet review, activity review and coordination of ca re with consulted teams GER SOUND * Shanae Mazariegos, OT - 11/06/2019 2:27 PM MANAGER SOUND OCCUPATIONAL THERAPY ASSESSMENT NOTE Name: Benedicto Rios : 1965 Age: 54 y.o. Admission Date: 11/06/2019 LOS: 0 days Mobility Patient Turn/Position: Supine Progressive Mobility Level: Walk in hallway Distance Walked (feet): 300 ft Level of Assistance: Assist X1 Assistive Device: None Time Tolerated: 11-30 minutes Activity Limited By: Fatigue Subjective Pertinent Dx per Physician: Pt endorses 4-6 week history of headaches with acute worsening in the last three days associated with word finding difficulty, inter mittent diplopia and imbalance. CT head at OSH with L parieto-occipital hemorrha ge with SAH component and possible underlying mass. Precautions: Falls;Vision/Cognitive Deficits Pain / Complaints: Patient agrees to participate in therapy Objective Psychosocial Status: Willing and Cooperative to Participate Home Living Type of Home: Apartment Home Layout: One Level Bathroom Shower / Tub: Tub/Shower Unit;Walk-in Shower Home Equipment: Shower/Tub Bench Prior Function Level Of [place]: Independent with ADLs and functional transfers;Independen t with homemaking w/ ambulation Lives With: Spouse Receives Help From: None Needed Vision Current Vision: Wears Glasses All of the Time Comment: Pt reports he sometimes feels like there is a "gap" in his vision. unab le to elaborate further. ADL's Where Assessed: Chair Eating Assist: Stand By Assist Eating Deficits: Setup LE Dressing Assist: Stand By Assist LE Dressing Deficits: Don/Doff R Sock;Don/Doff L Sock Functional Transfer Assist: Minimal Assist Comment: Pt seated in chair upon OT arrival. Pt able to maurisio/doff socks while in chair. Pt ambulates short distance in hallway with min assist. Pt requesting to return to bed at end of session. Pt left supine with all needs met and bed alarm set. Cognition Overall Cognitive Status: Impaired Expression: Expressive Aphasia Cognition Comment: Pt has word finding difficulty during subjective interview. UE AROM Overall BUE AROM WNL: Yes Coordination: Mild Delay UE Strength / Tone Overall Strength / Tone: 4/5 ;Right;Left Education Persons Educated: Patient Barriers To Learning: Cognitive Deficits Teaching Methods: Verbal Instruction;Demonstration Patient Response: Verbalized and Demo Understanding Topics: Role of OT, Goals for Therapy;ADL Compensatory Techniques Assessment Assessment: Decreased ADL Status;Decreased UE Strength;Decreased Cognition;Decre ased Endurance;Visual Deficit;Decreased Self-Care Trans;Decreased High-Level ADL s Plan OT Frequency: 2-3x/week OT Plan for Next Visit: mobility, grooming at the sink, toileting ADL Goals Patient Will Perform All ADL's: w/ Modified [place] Functional Transfer Goals Pt Will Perform All Functional Transfers: Modified Independent OT Discharge Recommendations Recommendation: Currently patient requires inpatient level of care. However, typ [facility] and nursing home progression for patient condition would anticipate home with assistance at time of discharge. Recommendation for Therapy Post Discharge: Home health At this time would recommend inpatient setting due to patient requiring assist w ith all mobility. Anticipate with continued therapy in the acute setting patient may progress to dc home with intermittent assist. If patient does not have inte rmittent assist he would benefit from inpatient setting. Therapist: Shanae Mazariegos OTR/L [id number] Date: 11/06/2019 GER SOUND * Meek Cobb MD - 11/06/2019 1:32 PM MANAGER SOUND Critical Care Progress Note Today's Date: 11/06/2019 Name: Benedicto Rios Admission Date: 11/06/2019 LOS: 0 days Assessment/Plan: Active Problems: Left-sided nontraumatic intracerebral hemorrhage (HCC) Vasogenic edema (HCC) Other headache syndrome Coronary artery disease Hypertension Hyperlipidemia Atrial fibrillation Mr. Rios is a 54-year-old male with significant past medical history for willams ry artery disease status post PCI x5 (last stent this past January), hypertension, hyperlipidemia and chronic atrial fibrillation on anticoagulation. Patient tra nsferred from outside hospital with left parieto-occipital hemorrhage with possi ble underlying mass. Patient admitted to the neuro ICU for further management. Neuro: Left parieto-occipital hemorrhage with concern for underlying mass. Stat us post CTA without large vessel occlusion, aneurysm or AVM. ICH noted. Modera te hypoattenuation noted in the left posterior cerebral hemisphere. Neurosurger y consulted. Plan for MRI. Every hour neurochecks. Avoid sedating medication. Maintain appropriate sleep/wake cycle for delirium prevention. Cardiac: Complex cardiac disease with recent PCI on Plavix and Eliquis for atria l fibrillation. Given ICH Kcentra and DDAVP given. Currently holding Plavix an d Eliquis. Patient at risk for cardiac complications (given recent PCI and hold ing Plavix in setting of intracranial bleed). Will start aspirin 81 mg. Close telemetry monitoring. Maintain SBP less than 140 with MAP greater than 65. Res ume DIRECTOR PROPERTY antihypertensives. Vital signs per unit protocol. Pulmonary: Oxygenating well on. Goal SPO2 greater than 92%. Resume DIRECTOR PROPERTY Symbico rt and albuterol for history of COPD. FEN: N.p.o. Advance diet status post MRI. Bowel regimen ordered. ID: Afebrile. Leukocytosis, likely reactive. No concern for infection. Monito r fever curve. Renal: Stable. Trend BMP. Replete electrolytes PRN, goal potassium greater jak n 4 and magnesium greater than 2. Heme: CBC stable. Holding Eliquis and Plavix. Given recent PCI will initiate a spirin 81 mg. Daily CBC. Endo: Modified Joanne Insulin Protocol Prophylaxis: HOB>40, PPI, SCDs for DVT prophylaxis Disposition/Family: ICU for management of ICH need of close neurological monitor ing. __ Subjective: Benedicto Rios is a 54 y.o. male. Overnight Events: No new events noted. Patient complains of headache and blurred vision. Additionally patient notes unsteady g ait. Denies any dizziness. Denies any chest pain, shortness of air, abdominal pain, nausea, vomiting, fever or chills. Objective: Medications: Scheduled Meds:amLODIPine (NORVASC) tablet 2.5 mg, 2.5 mg, Oral, QDAY atorvastatin (LIPITOR) tablet 80 mg, 80 mg, Oral, QDAY [START ON 11/08/2019] bisacodyL (DULCOLAX) rectal suppository 10 mg, 10 mg, Rectal , QDAY budesonide-formoteroL (SYMBICORT HFA) 160-4.5 mcg/actuation inhalation 2 puff, 2 puff, Inhalation, BID docusate (COLACE) capsule 100 mg, 100 mg, Oral, BID insulin aspart U-100 (NOVOLOG FLEXPEN) injection PEN 0-12 Units, 0-12 Units, Sub cutaneous, 5 X Daily metoprolol tartrate (LOPRESSOR) tablet 25 mg, 25 mg, Oral, BID milk of magnesia (CONC) oral suspension 10 mL, 10 mL, Oral, QDAY senna/docusate (SENOKOT-S) tablet 1 tablet, 1 tablet, Oral, BID Continuous Infusions: sodium chloride 0.9 % infusion 50 mL/hr at 11/06/19 0803 PRN and Respiratory Meds:acetaminophen Q4H PRN, albuterol 0.5% Q4H PRN, calcium gluconate IV PRN (Wedding Coordinator from Rx) AND Ionized Calcium PRN AND Notify P hysician Ongoing, hydrALAZINE Q6H PRN, labetalol (NORMODYNE; TRANDATE) injection Q15 MIN PRN, magnesium sulfate PRN AND Magnesium PRN AND Notify Physici an Ongoing, ondansetron (ZOFRAN) IV Q6H PRN, potassium chloride SR PRN OR po tassium chloride PRN, sodium phosphate IVPB PRN (Wedding Coordinator from Rx) AND Phosp horus PRN AND Notify Physician Ongoing Vital Signs: Last Filed Vital Signs: 24 Hour Ra nge BP: 111/57 (11/06 1100) Temp: 37.2 C (98.9 F) (11/06 0800) Pulse: 70 (11/06 1100) Respirations: 15 PER MINUTE (11/06 1100) SpO2: 97 % (11/06 1100) Height: 175.3 cm (69.02") (11/06 401) Weight: 88 kg (194 lb 0.1 oz) (11/06 401) BP: (104-122)/(57-86) Temp: [37.2 C (98.9 F)-37.4 C (99.3 F)] Pulse: [70-86] Respirations: [11 PER MINUTE-22 PER MINUTE] SpO2: [95 %-97 %] Intensity Pain Scale (Self Report): (not recorded) Vitals: 11/06/19 040 Weight: 88 kg (194 lb 0.1 oz) Critical Care Vitals: ICP Monitoring: PA Catheter: Hemodynamics/Oxycalcs: Intake/Output Summary: (Last 24 hours) Intake/Output Summary (Last 24 hours) at 11/06/2019 1332 Last data filed at 11/06/2019 0800 Gross per 24 hour Intake 100 ml Output Net 100 ml Physical Exam: General: no distress, disheveled, appears stated age Lungs: Unlabored, clear CV: RRR Abdomen: Soft, non-tender. Bowel sounds normal. Extremities: Extremities normal, atraumatic, no cyanosis or edema Neurologic: Awake, alert, oriented. PERRLA, strength intact. Gaitdeferred. Diplopia reported. No other focal neurological deficit. Prophylaxis Review: Antibiotic Usage: No VTE: SCDs, holding chemical DVT prophylaxis in setting of acute intracranial ble ed. Lab Review: Pertinent labs reviewed Point of Care Testing: (Last 24 hours): Glucose: (!) 180 (11/06/19 0431) POC Glucose (Download): (!) 284 (11/06/19 1222) Radiology and Other Diagnostic Procedures Review: Pertinent radiology reviewed. I have seen, examined and reviewed data concerning this patient. I discussed sandra woo findings and plan of care with the ICU team. Meek Cobb MD Career Developer Anesthesiology and Critical Care GER SOUND * Roopa Loomis, PT - 11/06/2019 10:17 AM MANAGER SOUND PHYSICAL THERAPY ASSESSMENT Name: Benedicto Rios : 1965 Age: 54 y.o. Admission Date: 11/06/2019 LOS: 0 days Mobility Patient Turn/Position: Chair Progressive Mobility Level: Walk laps Distance Walked (feet): 450 ft Level of Assistance: Assist X1 Assistive Device: None Time Tolerated: 11-30 minutes Activity Limited By: Fatigue Subjective Significant hospital events: Pt endorses 4-6 week history of headaches with acut e worsening in the last three days associated with word finding difficulty, inte rmittent diplopia and imbalance. CT head at OSH with L parieto-occipital hemorrh age with SAH component and possible underlying mass. Mental / Cognitive Status: Alert;Cooperative;Follows Commands(aphasic) Pain: Patient has no complaint of pain Ambulation Assist: Independent Mobility in Community without Device Patient Owned Equipment: None Home Situation: Lives with Family Type of Home: House Entry Stairs: No Stairs In-Home Stairs: No Stairs ROM LE ROM WFL: Yes Strength Overall Strength: WFL Bed Mobility/Transfer Bed Mobility: Supine to Sit: Standby Assist;Head of Bed Elevated;No Rail;Require s Extra Time Transfer Type: Sit to/from Stand Transfer: Assistance Level: To/From;Bed;Bed Side Chair;Standby Assist Transfer: Assistive Device: None Transfers: Type Of Assistance: For Balance;For Safety Considerations End Of Activity Status: Up in Chair;Nursing Notified;Instructed Patient to Reque st Assist with Mobility;Instructed Patient to Use Call Light(pads alarm activate d) Balance 4 Item Dynamic Gait Index: Assessed Gait Level Surface: 3 - Normal: Walks 20', no assistive devices, good speed, no evidence for imbalance, normal gait pattern Change in Gait Speed: 2 - Mild Impairment: Is able to change speed but demonstra keven mild gait deviations, or not gait deviations but unable to achieve a signifi cant change in velocity, or uses an assistive device. Gait with Horizontal Head Turns: 2 - Mild Impairment: Performs head turns smooth ly with slight change in gait velocity, ie., minor disruption to smooth gait pat h or uses walking aid. Gait with Vertical Head Turns: 0 - Severe Impairment: Performs task with severe disruption of gait, ie., staggers outside a 15 inch path, loses balance, stops, reaches for wall. 4 Dynamic Gait Index Total : 7 out of 12 4 Dynamic Gait Index Fall Risk: Less than 10 - Increased Risk for Falls Gait Gait Distance: 450 feet Gait: Assistance Level: Minimal Assist Gait: Assistive Device: None Gait: Descriptors: Pace: Slow;Pathway deviations;Loss of balance;Variable step l ength Activity Limited By: Complaint of Fatigue Education Persons Educated: Patient Patient Barriers To Learning: None Noted Teaching Methods: Verbal Instruction Patient Response: Verbalized Understanding Topics: Plan/Goals of PT Interventions;Importance of Increasing Activity;Recomme nd Continued Therapy Assessment/Progress Impaired Mobility Due To: Impaired Balance;Decreased Activity Tolerance Assessment/Progress: Should Improve w/ Continued PT Goals Goal Formulation: With Patient Time For Goal Achievement: 3 days Patient Will Ambulate: Greater than 200 Feet, w/ No Device, w/ Stand By Assist Other Goal: Will pass balance test with low fall risk score. Plan Treatment Interventions: Mobility Training;Balance Activities Plan Frequency: 3-5 Days per Week PT Plan for Next Visit: Balance activities; Trial stairs. PT Discharge Recommendations Recommendation: Inpatient setting;Recommend rehab medicine consult(currently) Therapist Rooap Loomis, PT Date 11/06/2019 Tammie Lund MA,CCC-PET SITTER - 11/06/2019 8:55 AM MANAGER SOUND SPEECH-LANGUAGE PATHOLOGY CLINICAL SWALLOW ASSESSMENT EVALUATION SUMMARY Summary: Clinical swallow eval reveals functional oropharyngeal swallow w/ no pa tterns of dysphagia. No over clinical s/s of aspiration noted w/ any consistenc y of solids or thin liquids. The patient does present w/ at least moderate apha bautista (expression>receptive--reading/verbal/written) as clinically noted during clinical swallow eval, however unable to complete evaluation due to needing ECHO immediately after swallow eval. Disccussed results in person w/ PACKER DRIED BEEF and RN. Recommendations* -initiate PO diet: Regular solids, Thin Liquids -medications by mouth as tolerated -Assist pt w/ ordering food due to difficulty w/ aphasia- verbally present choic es and allow pt time to respond -No further management of dysphagia, will f/u for assessment of speech/language Oral Stage Withdrawal: WFL Bolus formation: WFL Mastication: WFL, slight slowed secondary to dentition Transfer:WFL, appears timely Anterior bolus spillage:WFL, none noted Residues:WFL, none noted Summary*: Oral phase appears WFL Pharyngeal stage Swallow initiation: WFL, appears timely Laryngeal elevation: Palpable elevation noted upon deglutition. Signs/symptoms of aspiration: 1-2 swallows/bolus. No overt clinical s/s of appre ciated w/ any consistency. Pt consumes pureed, mechanical soft, and regular talon ids in addition to approx 8 ounces of thin liquids via cup/straw, including 90mL water challenge free of overt clinical s/s of aspiration. Summary*: Pharyngeal phase appears WFL Plan: (F/U to complete language eval) Prognosis: Good(for swallow, fair for language) Results Reported to Physician: Yes Objective* Relevant Med Background per chart review:Benedicto Rios is a 54 y.o. male who is t [facility]red to [facility] for diagnosis of new brain mass with hemorrhagic component. H e reports he was in his usual state of health until the past few weeks. Normall y he does not get headaches. He reports that lately he has been having severe h eadaches every couple of days, and over the past 3-4 days particularly he has lawrence d continuous severe headache. He said it did not respond to over the counter me dications. He takes Eliquis for Afib and Plavix for cardiac stents. He has a p ersonal smoking history and family history of lung cancer in his sister, and als o his aunt. He does not have a personal history of known cancers. He reports na usea associated with his severe headaches, but he has never had vomiting. He de nis visual complaints at this time. No episodes concerning for seizure-type act ivity. CT head showed left parietal mas with small hemorrhagic component and po ssibly surrounding edema. MRI ordered, to be completed Head CT 11/06/2019 IMPRESSION 1. Patent intracranial arterial vasculature without large vessel occlusion, high-grade stenosis, aneurysm, or AVM. 2. No significant change in size of 2 small areas of intraparenchymal hemorrhage within the left parieto-occipital region. 3. Moderate associated hypoattenuation within the left [...] evaluation. 4. No significant change in minimal scattered left cerebral convexity subarachnoid hemorrhage. No intraventricular hemorrhage. Handedness: Right Lives With: Spouse Receives Help From: None Needed Vocational: On Disability Psychosocial Status: Willing and Cooperative to Participate Persons Present: None Subjective* Pain: Patient complains of pain, 3/10(Headache, RN admin meds already) Trach Presence: No Feeding Tube Present During Eval: None Nutrition* Nutrition Prior To Hospitalization: Oral, Regular, Thin Liquids Current Form Of Nutrition: NPO, IV Fluids Oral Mech Exam Oral Mech WFL*: No Oral Mech Exam Summary*: Edentulous superiorly, has few natrual lower dentition. No dentures/partials. Strong cough. Face appears grossly symmetrical. Vocal jermaine lity WFL. Pt reports parasthesias on R exterior buccal area. Pt was able to d emonstrate adequate labial, lingual, buccal, and jaw strength, range of motion, and coordination, as able to be clinically assessed. Swallow Strategies Comments: None required Education* Persons Educated: Patient Barriers To Learning: Impaired Communication Interventions: Staff Educated, Repetition of Instructions Teaching Methods: Verbal, Demonstration Topics: Aphasia, Dysphagia Patient Response: Verbalized Understanding, Return Demonstration Goal Formulation: With Patient Therapist:Tammie Renee MAL/CCC-PET SITTER Voalte: [id number] Date:11/06/2019 GER SOUND * Marjan Yang RN - 11/06/2019 4:57 AM MANAGER SOUND Patient arrived to room # (96859) via bed accompanied by transport. Patient joseph sferred to the bed without assistance. Bedside safety checks completed. Initial patient assessment completed. Refer to flowsheet for details. Admission skin assessment completed with: FARSHAD Silva Pressure injury present on arrival?: No 1. Head/Face/Neck: No 2. Trunk/Back: No 3. Upper Extremities: No 4. Lower Extremities: No 5. Pelvic/Coccyx: No 6. Assessed for device associated injury? No 7. Malnutrition Screening Tool (Nursing Nutrition Assessment) Completed? Yes See Doc Flowsheet for additional wound details. GER SOUND documented in this encounter H&P Notes * Reyes Nesbitt MD - 11/11/2019 7:51 AM MANAGER SOUND I have seen and examined the patient. There have been no interval changes from t he H&P. Pt denies recent infection, fevers, chills, cp, or soa. Consent signed. We will proceed with Left parietal craniotomy for tumor resection. Reyes Nesbitt MD GER SOUND * Sara Le, MSN,SOFTWARE DEVELOPMENT MANAGER - 11/06/2019 5:23 AM MANAGER SOUND Neuro Critical Care History and Physical or Consult Note Benedicto Rios Admission Date: 11/06/2019 LOS: 0 days Full Code ASSESSMENT/PLAN Patient Active Problem List Diagnosis Date Noted Left-sided nontraumatic intracerebral hemorrhage (HCC) 11/06/2019 Vasogenic edema (HCC) 11/06/2019 Other headache syndrome 11/06/2019 Benedicto Rios is a 54 y.o. male with history of HTN, HLD, [place] with PCI/stending x5 on plavix, chronic atrial fibrillation on eliquis who endorses 4-6 week history of headaches with acute worsening in the last three days associated with word fi nding difficulty, intermittent diplopia and imbalance. CT head at OSH with L par ieto-occipital hemorrhage with SAH component and possible underlying mass. Hospital and ICU course: 11/06: admitted to NEICU Neuro: L parietal-occipital hemorrhage 2/2 mass Neuro Critical Care ICH Score GCS (3-4, or 5-12, or 13-15): 0 Age ? 80: 0 ICH volume ? 30 ml: 0 IVH present: 0 Infratentorial origin of hemorrhage: 0 Total score on admission: 0 Pt on anticoagulation currently? Yes, eliquis and plavix - Given Kcentra and DDAVP at OSH - INR on admission? 1.1 - NSG consult - CTA head - MRI brain WO/W - PT/OT - Cognitive impairment suspected - No - Neuro-ICU monitoring, neurochecks q 1 hrs Imaging: CT head @ OSH: Acute hemorrhage in left parietal, possibly portions of the occi pital lobe, with surrounding edema. Underlying mass not excluded. Possible small amount of blood along the falx posteriorly with suspected SAH in the left mid p arietal lobe and midline shift to the right. Sedation/Pain Management: - PRN tylenol available - Assess for delirium daily Cardiac: HTN - SBP goal: < 140 - MAP goal > 65 HLD; CAD with PCI x5 - Hold DIRECTOR PROPERTY plavix Chronic Atrial Fibrillation - Hold DIRECTOR PROPERTY eliquis Respiratory: Current smoker - cigarettes and pipe COPD Stable on RA - continue DIRECTOR PROPERTY symbicort and PRN albuterol - PaO2 goal >100, Spo2 goal >95% GI: GERD - Feeding: NPO pending surgical evaluation - neurosurgery bowel regimen, ensure daily BM Heme: Chronic anti-platelet with plavix and eliquis 11/06 Hgv 15.5 Hct 45.7 Plt 263 INR 1.1 - Daily CBC - Reversed with DDAVP and Kcentra at OSH > did have pruritic reaction and received 125mg methylpred and 25mg benadryl - assess for coagulopathy, maintain platelets above 100k, INR <1.5 ID: Leukocytosis 11/06 WBC 15.7 - Afebrile - aim for normothermia, Temp <38.3 celsius, normothermia protocol if febrile Renal: - Daily BMP - Aim for normovolemia Endocrine: Diabetes Mellitus - POC ACHS with [facility] - Hold DIRECTOR PROPERTY Victoza - Hold DIRECTOR PROPERTY lantus, pending surgical plan - Blood glucose goal 100-180mg/dl FEN: - IVF: NS @ 50mL/hr - Electrolyte replacement per protocol - Magnesium goal >2.0, i-Sohan goal > 1.0, Potassium goal >4.0 mEq/L Prophylaxis Review: A)GI: NA B) Lines: No C) Urinary Catheter: No D) Antibiotic Usage: No E) VTE: Mechanical prophylaxis; Sequential compression device F) Isolation: NA G)Seizures: Keppra BID I) Restraints: Patient assessed for need for restraints. Disposition/Family: Requires ICU monitoring Primary service: NEICU Consults: Neurosurgery SUBJECTIVE Chief Complaint: Headaches, word finding difficulty, gait imbalance History of Present Illness: Benedicto Rios is a 54 y.o. male with history of HTN, H LD, NH with PCI/stending x5 on plavix, chronic atrial fibrillation on eliquis wh o endorses 4-6 week history of headaches with acute worsening in the last three days associated with word finding difficulty, intermittent diplopia and imbalanc e. He hasn't taken any OTC medications for headaches, but states that laying chele n has previously helped them go away up until the last three days it has not. Al so relates that the word finding and slowed speech is worse when the headaches h ave greater intensity. CT head at OSH with L parieto-occipital hemorrhage with S AH component and possible underlying mass. Medical History: Diagnosis Date CAD (coronary artery disease), [place] coronary artery Chronic atrial fibrillation (HCC) COPD (chronic obstructive pulmonary disease) (HCC) Current smoker Diabetes mellitus (HCC) Hyperlipidemia, mixed Hypertension, essential History reviewed. No pertinent surgical history. History reviewed. No pertinent family history. Social History Social History Narrative Not on file Code Status: Full Code Decision Maker: Self, otherwise Shira Immunizations (includes history and patient reported): There is no immunization history on file for this patient. Allergies: Bee sting kit Medications Prior to Admission Medication Sig albuterol sulfate (PROAIR HFA) 90 mcg/actuation aerosol inhaler Inhale 2 puf fs by mouth into the lungs every 6 hours as needed for Wheezing or Shortness of Breath. Shake well before use. amLODIPine (NORVASC) 2.5 mg tablet Take 2.5 mg by mouth daily. apixaban (ELIQUIS) 5 mg tablet Take 5 mg by mouth twice daily. atorvastatin (LIPITOR) 80 mg tablet Take 80 mg by mouth daily. budesonide-formoteroL (SYMBICORT HFA) 160-4.5 mcg/actuation inhalation Inhal e 2 puffs by mouth into the lungs twice daily. clopiDOGrel (PLAVIX) 75 mg tablet Take 75 mg by mouth daily. diclofenac (VOLTAREN) 1 % topical gel Apply 4 g topically to affected area a s Needed. insulin glargine (LANTUS) 100 unit/mL vial Inject 40 Units under the skin at bedtime daily. liraglutide (VICTOZA) 0.6 mg/0.1 mL (18 mg/3 mL) injection pen Inject 1.8 mg under the skin daily. metoprolol XL (TOPROL XL) 50 mg extended release tablet Take 50 mg by mouth daily. Review of Systems: A 14 point review of systems was negative except for: Neurological: positive for headaches, speech problems and gait problems OBJECTIVE Vital Signs: Last Filed Vital Signs: 24 Hour Ra nge BP: 108/64 (11/06 599) Temp: 37.4 C (99.3 F) (11/06 401) Pulse: 73 (11/06 599) Respirations: 15 PER MINUTE (11/06 599) SpO2: 96 % (11/06 599) Height: 175.3 cm (69.02") (11/06 401) Weight: 88 kg (194 lb 0.1 oz) (11/06 401) BP: (104-118)/(64-73) Temp: [37.4 C (99.3 F)] Pulse: [73-86] Respirations: [15 PER MINUTE-22 PER MINUTE] SpO2: [96 %-97 %] Intensity Pain Scale (Self Report): (not recorded) Vitals: 11/06/19401 Weight: 88 kg (194 lb 0.1 oz) Lines: Peripheral Line Drains: None Intake/Output Summary: (Last 24 hours) Intake/Output Summary (Last 24 hours) at 11/06/2019 0708 Last data filed at 11/06/2019 0456 Gross per 24 hour Intake 100 ml Output Net 100 ml Physical Exam: Blood pressure 108/64, pulse 73, temperature 37.4 C (99.3 F), height 175.3 c m (69.02"), weight 88 kg (194 lb 0.1 oz), SpO2 96 %. Bigler coma score: E: 4 - Opens eyes on own M: 6 - Follows simple motor commands V: 5 - Alert and oriented Neuro: Mental Status: Aox4 Cranial Nerves: Slight decrease in sensation throughout left face - Pupil exam: Size: 3/3 Reactivity: Brisk BL - EOM: Intact, subjective difficulty looking left - Corneal reflex: R - present L - present - Grimace/facial movement: present - Cough: present - Gag reflex: Deferred Motor: non-focal. SOSA 5/5 Sensory: normal, except as per above Coordination: intact Lungs: clear to auscultation bilaterally Heart: irregularly irregular rhythm, S1, S2 normal Abdomen: soft, non-tender. Bowel sounds normal. No masses, no organomegaly Extremities: extremities normal, atraumatic, no cyanosis or edema Skin: Skin color, texture, turgor normal. No rashes or lesions Point of Care Testing: (Last 24 hours): Glucose: (!) 180 (11/06/19 0431) Lab Review: Pertinent labs reviewed Radiology and Other Diagnostic Procedures Review: Pertinent radiologic and diag nostic procedures reviewed. I spent 54 minutes managing the care of this patient. Mr. Rios is critically il l with intracranial hemorrhage complicated by chronic anti platelet use. Cares i ncluded: detailed neurologic and systems exam, medication review, laboratory stacey a review and interpretation, electrolyte management, review of available imaging , DVT/PE prophylaxis review, diet review, activity review and coordination of ca re with consulted teams Sara Le, MSN,SOFTWARE DEVELOPMENT MANAGER Date: 11/06/[phone] GER SOUND documented in this encounter Consult Notes * Ron Cardoza MD - 11/11/2019 6:49 PM MANAGER SOUND Neuro Critical Care Consult Benedicto Rios Admission Date: 11/06/2019 LOS: 5 days Full Code ATTESTATION This note is associated with the NEICU team note dated today. Date of Service: 11/11/2019 Medical History: Diagnosis Date Brain mass left parietal CAD (coronary artery disease), [place] coronary artery Chronic atrial fibrillation (HCC) COPD (chronic obstructive pulmonary disease) (HCC) Current smoker Diabetes mellitus (HCC) Hyperlipidemia, mixed Hypertension, essential I have seen, personally fully evaluated, and discussed patient with the NEICU te am. I agree with the objective findings and agree with the plan of care as docu mented by the resident with the exceptions noted. The patient is critically ill with left parietal hemorrhagic mass. Active hospital problems include: Active Problems: Left-sided nontraumatic intracerebral hemorrhage (HCC) Vasogenic edema (HCC) Other headache syndrome Hypertension, essential Hyperlipidemia, mixed Diabetes mellitus (HCC) Current smoker COPD (chronic obstructive pulmonary disease) (HCC) Chronic atrial fibrillation (HCC) CAD (coronary artery disease), [place] coronary artery I spent 35 minutes (excluding time spent performing or supervising any procedur es) providing and personally directing critical care services including -review of serial neurologic, hemodynamic, respiratory, telemetry, laboratory an d imaging data -management of fluids/electrolytes, antibiotics, vasoactive medications, gas exc hange/mechanical ventilation, sepsis protocol, ICU prophylaxis, and ICU core me asures -pain/sedation/delirium management -medication review and management -organization and coordination of care with patient (or surrogate), ICU team and consulting services. -directing the formulation of the overall plan of care outlined below. Dispo: This patient is critically ill with dysfunction of at least one organ sys tem and is at risk for life threatening deterioration necessitating complex medi sohan decision making and ongoing provision of ICU care. Staff name: Ron Cardoza MD Date: 11/11/2019 ASSESSMENT/PLAN Patient Active Problem List Diagnosis Date Noted Hypertension, essential Hyperlipidemia, mixed Diabetes mellitus (HCC) Current smoker COPD (chronic obstructive pulmonary disease) (HCC) Chronic atrial fibrillation (HCC) CAD (coronary artery disease), [place] coronary artery Brain tumor (HCC) 11/10/2019 Left-sided nontraumatic intracerebral hemorrhage (HCC) 11/06/2019 Vasogenic edema (HCC) 11/06/2019 Other headache syndrome 11/06/2019 Benedicto Rios is a 54 y.o. male with history of HTN, HLD, NH with PCI/stenting x5 on plavix, chronic atrial fibrillation on eliquis who presented to OSH on with worsening headache, diplopia, imbalance and word finding difficulty. CT head at OSH noted L parieto-occipital hemorrhage with SAH component and possible underlying mass.He was then transferred to [facility] and admitted to NEICU. 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 Plavix and Eliquis was held and he was taken t o the OR on 11/11 for resection. He is admitted back to NEICU post operatively. Hospital and ICU course: 11/06: admitted to NEICU Neuro: Left parietal-occipital mass with recent hemorrhage(11/06/19) Vasogenic edema - MRI head 11/06: Necrotic enhancing hemorrhagic mass in the left parieto-occipi meek lobe, - CT chest abdomen and pelvis 11/06: negative for mass or lymph node enlargement . - Radiation Oncology and Oncology following- plan pending pathology - Decadron - Keppra 500 mg BID for seizure prophylaxis - MRI 11/12 - PT/OT Sedation/Pain Management: - PRN tylenol, fentanyl and oxycodone - Assess for delirium daily Cardiac: HTN - SBP goal:< 140 - continue Norvasc - PRN labetalol HLD - lipitor CAD with PCI x5 - Holding Plavix and ASA Chronic Atrial Fibrillation - Holding eliquis - continue Metoprolol Respiratory: Current smoker COPD Pulmonary Nodules on CT Stable on RA - Nicotine patch - continue [employer] symbicort and PRN albuterol - CPAP at night - nodules may be granulomas/scarring- will need f/u imaging in 6-12 months GI: GERD - Feeding:Regular diet - continue PPI - neurosurgery bowel regimen, ensure daily BM (last 11/09) Heme: On Chronic Anticoagulation - initially reversed at OSH with Kcentra - continue holding ASA, Eliquis and Plavix - Hgb 16.1, Plt 275 - daily CBC - SCD's ID: - WBC: 9.6 -Afebrile - Ancef for post op prophylaxis Renal: -Daily BMP - BUN 18, Cr 0.75 - hill removal per protocol - Aim for normovolemia Intake/Output Summary (Last 24 hours) at 11/11/2019 1849 Last data filed at 11/11/2019 1700 Gross per 24 hour Intake 3050 ml Output 1441 ml Net 1609 ml Endocrine: Diabetes Mellitus - HDCF - Continue lantus, Victoza, HDCF - Blood glucose goal 100-180mg/dl FEN: - IVF:None - Electrolyte replacement per protocol - Magnesium goal >2.0, i-Sohan goal > 1.0, Potassium goal >4.0 mEq/L Primary service:[facility] Consults:Neurosurgery SUBJECTIVE Chief Complaint: Head pain History of Present Illness: Benedicto Rios is a 54 y.o. male with history of HTN, H LD, NH with PCI/stenting x5 on plavix, chronic atrial fibrillation on eliquis wh o presented to OSH on 11/06/19 with worsening headache, diplopia, imbalance and word finding difficulty. CT head at OSH noted L parieto-occipital hemorrhage wit h SAH component and possible underlying mass.He was then transferred to [facility] a nd admitted to NEICU. 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 Plavix and Eliquis was held and he was taken to the OR on 11/11 for resection. He is admitted back to NEICU post operatively. He c/o head pain 10/10 and right homonomous hemianop bautista continues. He denies nausea, weakness or new sensory issues. Medical History: Diagnosis Date Brain mass left parietal CAD (coronary artery disease), [place] coronary artery Chronic atrial fibrillation (HCC) COPD (chronic obstructive pulmonary disease) (HCC) Current smoker Diabetes mellitus (HCC) Hyperlipidemia, mixed Hypertension, essential Surgical History: Procedure Laterality Date CORONARY STENT PLACEMENT History reviewed. No pertinent family history. Social History Social History Narrative Not on file Code Status: Full Code Decision Maker: spouse Immunizations (includes history and patient reported): There is no immunization history on file for this patient. Allergies: Bee sting kit and Bee [bumble bee] Medications Prior to Admission Medication Sig albuterol sulfate (PROAIR HFA) 90 mcg/actuation aerosol inhaler Inhale 2 puf fs by mouth into the lungs every 6 hours as needed for Wheezing or Shortness of Breath. Shake well before use. amLODIPine (NORVASC) 2.5 mg tablet Take 2.5 mg by mouth daily. apixaban (ELIQUIS) 5 mg tablet Take 5 mg by mouth twice daily. atorvastatin (LIPITOR) 80 mg tablet Take 80 mg by mouth daily. budesonide-formoteroL (SYMBICORT HFA) 160-4.5 mcg/actuation inhalation Inhal e 2 puffs by mouth into the lungs twice daily. clopiDOGrel (PLAVIX) 75 mg tablet Take 75 mg by mouth daily. diclofenac (VOLTAREN) 1 % topical gel Apply 4 g topically to affected area a s Needed. EPINEPHrine (EPIPEN 2-VARUN) 1 mg/mL injection pen (2-Pack) Inject 0.3 mg into the muscle once as needed. Inject 0.3 mg (1 Pen) into thigh if needed for anaph ylactic reaction. May repeat in 5-15 minutes if needed. insulin glargine (LANTUS) 100 unit/mL vial Inject 40 Units under the skin at bedtime daily. isosorbide mononitrate SR (IMDUR) 60 mg tablet Take 60 mg by mouth every mor anastasia. liraglutide (VICTOZA) 0.6 mg/0.1 mL (18 mg/3 mL) injection pen Inject 1.8 mg under the skin daily. metFORMIN (GLUCOPHAGE) 1,000 mg tablet Take 1,000 mg by mouth twice daily wi th meals. metoprolol XL (TOPROL XL) 50 mg extended release tablet Take 50 mg by mouth daily. nitroglycerin (NITROSTAT) 0.[address] 0.4 mg under tongue every 5 mi nutes as needed for Chest Pain. Max of 3 tablets, call 911. Review of Systems: All other systems reviewed and are negative. OBJECTIVE Vital Signs: Last Filed Vital Signs: 24 Hour Ra [facility] BP: 100/88 (11/11 1800) ABP: 111/63 (11/11 1800) Temp: 37.1 C (98.7 F) (11/11 1600) Pulse: 102 (11/11 1800) Respirations: 16 PER MINUTE (11/11 1712) SpO2: 97 % (11/11 1800) Weight: 89.9 kg (198 lb 3.1 oz) (11/11 0400) BP: (100-145)/(70-113) ABP: (101-135)/(51-63) Temp: [36.5 C (97.7 F)-37.1 C (98.7 F)] Pulse: [74-102] Respirations: [14 PER MINUTE-18 PER MINUTE] SpO2: [94 %-99 %] Intensity Pain Scale (Self Report): (not recorded) Vitals: 11/06/19 0402 11/07/19 0500 11/11/19 0400 Weight: 88 kg (194 lb 0.1 oz) 87.8 kg (193 lb 9 oz) 89.9 kg (198 lb 3.1 oz) Artificial airway: None Ventilator/ Respiratory Therapy: No Vent weaning trial: Not applicable Lines: Peripheral Line Drains: hill Critical Care Vitals: ICP Monitoring: Hemodynamics/Oxycalcs: Intake/Output Summary: (Last 24 hours) Intake/Output Summary (Last 24 hours) at 11/11/2019 1849 Last data filed at 11/11/2019 1700 Gross per 24 hour Intake 3050 ml Output 1441 ml Net 1609 ml Stool Occurrence: 1 Physical Exam: Blood pressure 100/88, pulse 102, temperature 37.1 C (98.7 F), height 175.3 cm (69.02"), weight 89.9 kg (198 lb 3.1 oz), SpO2 97 %. Neuro: Mental Status: alert, oriented x 4 Cranial Nerves: - Face symmetric, speech clear, tongue midline - Pupil exam: Size: 3 Reactivity: brisk - EOM: intact with right homonomous hemianopsia Motor: Strength: 5/5; in all extremities Sensory: normal Coordination: finger to nose without ataxia Lungs: clear to auscultation bilaterally Heart: regular rate and rhythm, S1, S2 normal, no murmur, click, rub or gallop Abdomen: soft, non-tender. Bowel sounds normal. No masses, no organomegaly Extremities: extremities normal, atraumatic, no cyanosis or edema Skin: Skin color, texture, turgor normal. No rashes or lesions Point of Care Testing: (Last 24 hours): Glucose: (!) 214 (11/11/19 1740) POC Glucose (Download): (!) 203 (11/11/19 1739) Lab Review: Pertinent labs reviewed Radiology and Other Diagnostic Procedures Review: Pertinent radiologic and diag nostic procedures reviewed. Ron Cardoza MD Date: 11/11/[phone] GER SOUND * Crystal Richards, SOFTWARE DEVELOPMENT MANAGER-PACKER [employer] - 11/11/2019 3:26 PM MANAGER SOUND Associated Order(s): CONSULT NEURO CRITICAL CARE PHYSICIAN Neuro Critical Care Consult Benedicto Rios Admission Date: 11/06/2019 LOS: 5 days Full Code ASSESSMENT/PLAN Patient Active Problem List Diagnosis Date Noted Hypertension, essential Hyperlipidemia, mixed Diabetes mellitus (HCC) Current smoker COPD (chronic obstructive pulmonary disease) (HCC) Chronic atrial fibrillation (HCC) CAD (coronary artery disease), [place] coronary artery Brain tumor (HCC) 11/10/2019 Left-sided nontraumatic intracerebral hemorrhage (HCC) 11/06/2019 Vasogenic edema (HCC) 11/06/2019 Other headache syndrome 11/06/2019 Benedicto Rios is a 54 y.o. male with history of HTN, HLD, NH with PCI/stenting x5 on plavix, chronic atrial fibrillation on eliquis who presented to OSH on with worsening headache, diplopia, imbalance and word finding difficulty. CT head at OSH noted L parieto-occipital hemorrhage with SAH component and possible underlying mass.He was then transferred to [facility] and admitted to NEICU. 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 Plavix and Eliquis was held and he was taken t o the OR on 11/11 for resection. He is admitted back to NEICU post operatively. Hospital and ICU course: 11/06: admitted to NEICU Neuro: Left parietal-occipital mass with recent hemorrhage(11/06/19) Vasogenic edema - MRI head 11/06: Necrotic enhancing hemorrhagic mass in the left parieto-occipi meek lobe, - CT chest abdomen and pelvis 11/06: negative for mass or lymph node enlargement . - Radiation Oncology and Oncology following- plan pending pathology - Decadron - Keppra 500 mg BID for seizure prophylaxis - MRI 11/12 - PT/OT Sedation/Pain Management: - PRN tylenol, fentanyl and oxycodone - Assess for delirium daily Cardiac: HTN - SBP goal:< 140 - continue Norvasc - PRN labetalol HLD - lipitor CAD with PCI x5 - Holding Plavix and ASA Chronic Atrial Fibrillation - Holding eliquis - continue Metoprolol Respiratory: Current smoker COPD Pulmonary Nodules on CT Stable on RA - Nicotine patch - continue DIRECTOR PROPERTY symbicort and PRN albuterol - CPAP at night - nodules may be granulomas/scarring- will need f/u imaging in 6-12 months GI: GERD - Feeding:Regular diet - continue PPI - neurosurgery bowel regimen, ensure daily BM (last 11/09) Heme: On Chronic Anticoagulation - initially reversed at OSH with Kcentra - continue holding ASA, Eliquis and Plavix - Hgb 16.1, Plt 275 - daily CBC - SCD's ID: - WBC: 9.6 -Afebrile - Ancef for post op prophylaxis Renal: -Daily BMP - BUN 18, Cr 0.75 - hill removal per protocol - Aim for normovolemia Intake/Output Summary (Last 24 hours) at 11/11/2019 1640 Last data filed at 11/11/2019 1400 Gross per 24 hour Intake 2500 ml Output 1291 ml Net 1209 ml Endocrine: Diabetes Mellitus - HDCF - Continue lantus, Victoza, HDCF - Blood glucose goal 100-180mg/dl FEN: - IVF:None - Electrolyte replacement per protocol - Magnesium goal >2.0, i-Sohan goal > 1.0, Potassium goal >4.0 mEq/L Primary service:[facility] Consults:Neurosurgery SUBJECTIVE Chief Complaint: Head pain History of Present Illness: Benedicto Rios is a 54 y.o. male with history of HTN, H LD, NH with PCI/stenting x5 on plavix, chronic atrial fibrillation on eliquis wh o presented to OSH on 11/06/19 with worsening headache, diplopia, imbalance and word finding difficulty. CT head at OSH noted L parieto-occipital hemorrhage wit h SAH component and possible underlying mass.He was then transferred to [facility] a nd admitted [facility]. 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 Plavix and Eliquis was held and he was taken to the OR on 11/11 for resection. He is admitted back to [facility] post oper[facility]. He c/o head pain 10/10 and right homonomous hemianop bautista continues. He denies nausea, weakness or new sensory issues. Medical History: Diagnosis Date Brain mass left parietal CAD (coronary artery disease), [place] coronary artery Chronic atrial fibrillation (HCC) COPD (chronic obstructive pulmonary disease) (HCC) Current smoker Diabetes mellitus (HCC) Hyperlipidemia, mixed Hypertension, essential Surgical History: Procedure Laterality Date CORONARY STENT PLACEMENT History reviewed. No pertinent family history. Social History Social History Narrative Not on file Code Status: Full Code Decision Maker: spouse Immunizations (includes history and patient reported): There is no immunization history on file for this patient. Allergies: Bee sting kit and Bee [bumble bee] Medications Prior to Admission Medication Sig albuterol sulfate (PROAIR HFA) 90 mcg/actuation aerosol inhaler Inhale 2 puf fs by mouth into the lungs every 6 hours as needed for Wheezing or Shortness of Breath. Shake well before use. amLODIPine (NORVASC) 2.5 mg tablet Take 2.5 mg by mouth daily. apixaban (ELIQUIS) 5 mg tablet Take 5 mg by mouth twice daily. atorvastatin (LIPITOR) 80 mg tablet Take 80 mg by mouth daily. budesonide-formoteroL (SYMBICORT HFA) 160-4.5 mcg/actuation inhalation Inhal e 2 puffs by mouth into the lungs twice daily. clopiDOGrel (PLAVIX) 75 mg tablet Take 75 mg by mouth daily. diclofenac (VOLTAREN) 1 % topical gel Apply 4 g topically to affected area a s Needed. EPINEPHrine (EPIPEN 2-VARUN) 1 mg/mL injection pen (2-Pack) Inject 0.3 mg into the muscle once as needed. Inject 0.3 mg (1 Pen) into thigh if needed for anaph ylactic reaction. May repeat in 5-15 minutes if needed. insulin glargine (LANTUS) 100 unit/mL vial Inject 40 Units under the skin at bedtime daily. isosorbide mononitrate SR (IMDUR) 60 mg tablet Take 60 mg by mouth every mor anastasia. liraglutide (VICTOZA) 0.6 mg/0.1 mL (18 mg/3 mL) injection pen Inject 1.8 mg under the skin daily. metFORMIN (GLUCOPHAGE) 1,000 mg tablet Take 1,000 mg by mouth twice daily wi th meals. metoprolol XL (TOPROL XL) 50 mg extended release tablet Take 50 mg by mouth daily. nitroglycerin (NITROSTAT) 0.[address] 0.4 mg under tongue every 5 mi nutes as needed for Chest Pain. Max of 3 tablets, call 911. Review of Systems: All other systems reviewed and are negative. OBJECTIVE Vital Signs: Last Filed Vital Signs: 24 Hour [facility] BP: 122/75 (11/11 1599) ABP: 115/59 (11/11 1599) Temp: 37.1 C (98.7 F) (11/11 1599) Pulse: 94 (11/11 1599) Respirations: 14 PER MINUTE (11/11 0716) SpO2: 97 % (11/11 1599) Weight: 89.9 kg (198 lb 3.1 oz) (11/11 040) BP: (107-145)/(70-113) ABP: (101-124)/(51-59) Temp: [36.5 C (97.7 F)-37.1 C (98.7 F)] Pulse: [74-99] Respirations: [14 PER MINUTE-18 PER MINUTE] SpO2: [94 %-99 %] Intensity Pain Scale (Self Report): (not recorded) Vitals: 11/06/19 0402 11/07/19 0500 11/11/19 0400 Weight: 88 kg (194 lb 0.1 oz) 87.8 kg (193 lb 9 oz) 89.9 kg (198 lb 3.1 oz) Artificial airway: None Ventilator/ Respiratory Therapy: No Vent weaning trial: Not applicable Lines: Peripheral Line Drains: hill Critical Care Vitals: ICP Monitoring: Hemodynamics/Oxycalcs: Intake/Output Summary: (Last 24 hours) Intake/Output Summary (Last 24 hours) at 11/11/2019 1640 Last data filed at 11/11/2019 1400 Gross per 24 hour Intake 2500 ml Output 1291 ml Net 1209 ml Stool Occurrence: 1 Physical Exam: Blood pressure 122/75, pulse 94, temperature 37.1 C (98.7 F), height 175.3 c m (69.02"), weight 89.9 kg (198 lb 3.1 oz), SpO2 97 %. Neuro: Mental Status: alert, oriented x 4 Cranial Nerves: - Face symmetric, speech clear, tongue midline - Pupil exam: Size: 3 Reactivity: brisk - EOM: intact with right homonomous hemianopsia Motor: Strength: 5/5; in all extremities Sensory: normal Coordination: finger to nose without ataxia Lungs: clear to auscultation bilaterally Heart: regular rate and rhythm, S1, S2 normal, no murmur, click, rub or gallop Abdomen: soft, non-tender. Bowel sounds normal. No masses, no organomegaly Extremities: extremities normal, atraumatic, no cyanosis or edema Skin: Skin color, texture, turgor normal. No rashes or lesions Point of Care Testing: (Last 24 hours): Glucose: (!) 136 (11/11/19 0418) POC Glucose (Download): (!) 219 (11/11/19 1233) Lab Review: Pertinent labs reviewed Radiology and Other Diagnostic Procedures Review: Pertinent radiologic and diag nostic procedures reviewed. Crystal Richards, SOFTWARE DEVELOPMENT MANAGER-PACKER [employer]RI[employer]F Date: 11/11/[phone] I spent 50 minutes managing the care of this patient. Benedicto Rios is critically ill following cranial mass resection with recent ICH, HTN, DM, Afib. Cares incl uded: detailed neurologic and systems exam, medication review, laboratory data r eview and interpretation, electrolyte management, review of available imaging, D VT/PE prophylaxis review, diet review, activity review, mechanical ventilation a nd sedation management, and coordination of care with consulted teams GER SOUND * Darion Christianson MD - 11/10/2019 2:27 PM MANAGER SOUND Associated Order(s): CONSULT RADIATION ONCOLOGY PHYSICIAN Radiation Oncology Consultation Date: 11/05/2019 Benedicto Rios is a 54 y.o. male. Requesting Provider: Blaise Shrestha MD The encounter diagnosis was Nontraumatic hemorrhage of left cerebral hemisphere (HCC). Staging: Cancer Staging No matching staging information was found for the patient. History of Present Illness: Benedicto Rios is a 54 y.o. male with a history of hypertension, hyperlipidemia, pr ior NH on Plavix chronic A. fib on Eliquis, who presented with worsening headach e for the last 4 to 6 weeks and new word finding difficulty, right vision field loss. CT head at outside hospital showing left parieto-occipital hemorrhage wi th subarachnoid hemorrhage component and possible underlying mass. He was trans ferred to and admitted to the neuro ICU. MRI 11/06/2019showed necrotic enhancing hemorrhagic mass in the left parieto-occi pital lobe, 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 CT of chest and abdomen showed no mass nor lymph nodes. Neurosurgeon saw him and recommended surgery, but he needs off Plavix first. Maikol ayala is scheduled tomorrow. Radiation oncology consultation is requested for management of dot tumor. Past Medical History: Patient Active Problem List Diagnosis Date Noted Left-sided nontraumatic intracerebral hemorrhage (HCC) 11/06/2019 Vasogenic edema (HCC) 11/06/2019 Other headache syndrome 11/06/2019 Medical History: Diagnosis Date Brain mass left parietal CAD (coronary artery disease), [place] coronary artery Chronic atrial fibrillation (HCC) COPD (chronic obstructive pulmonary disease) (HCC) Current smoker Diabetes mellitus (HCC) Hyperlipidemia, mixed Hypertension, essential History reviewed. No pertinent surgical history. Prior Radiation History: None Medications No current outpatient medications on file. Allergies: Allergies Allergen Reactions Bee Sting Kit ANAPHYLAXIS Bee [Bumble Bee] ANAPHYLAXIS Social History: Social History Socioeconomic History Marital status: Spouse name: Not on file Number of children: Not on file Years of education: Not on file Highest education level: Not on file Occupational History Not on file Social Needs Financial resource strain: Not on file Food insecurity: Worry: Not on file Inability: Not on file Transportation needs: Medical: Not on file Non-medical: Not on file Tobacco Use Smoking status: Current Every Day Smoker Years: 35.00 Types: Cigarettes Smokeless tobacco: Never Used Substance and Sexual Activity Alcohol use: Not on file Drug use: Not on file Sexual activity: Not on file Lifestyle Physical activity: Days per week: Not on file Minutes per session: Not on file Stress: Not on file Relationships Social connections: Talks on phone: Not on file Gets together: Not on file Attends adventism service: Not on file Active member of club or organization: Not on file Attends meetings of clubs or organizations: Not on file Relationship status: Not on file Intimate partner violence: Fear of current or ex partner: Not on file Emotionally abused: Not on file Physically abused: Not on file Forced sexual activity: Not on file Other Topics Concern Not on file Social History Narrative Not on file Family History: History reviewed. No pertinent family history. Review of Systems: Headache Right peripheral vision loss Fatigue Patient Evaluated for a Clinical Trial: No treatment clinical trial available fo r this patient. KARNOFSKY PERFORMANCE SCORE: 70% Cares for self; unable to do normal activity, or active work Physical Exam Constitutional: Appearance: He is normal weight. Eyes: Extraocular Movements: Extraocular movements intact. Pupils: Pupils are equal, round, and reactive to light. Neck: Musculoskeletal: Normal range of motion. Cardiovascular: Rate and Rhythm: Normal rate and regular rhythm. Pulmonary: Breath sounds: Normal breath sounds. Abdominal: General: Abdomen is flat. Palpations: Abdomen is soft. Musculoskeletal: Normal range of motion. Lymphadenopathy: Cervical: No cervical adenopathy. Neurological: General: No focal deficit present. Mental Status: He is alert and oriented to person, place, and time. Cranial Nerves: Cranial nerve deficit (right peripheral vision loss) present. Sensory: No sensory deficit. Motor: No weakness. Coordination: Coordination normal. Gait: Gait normal. LABORATORY: Comprehensive Metabolic Profile Lab Results Component Value Date/Time NA 139 11/10/2019 02:47 AM K 4.2 11/10/2019 02:47 AM CL 104 11/10/2019 02:47 AM CO2 24 11/10/2019 02:47 AM GAP 11 11/10/2019 02:47 AM BUN 19 11/10/2019 02:47 AM CR 0.71 11/10/2019 02:47 AM GLU 143 (H) 11/10/2019 02:47 AM Lab Results Component Value Date/Time CA 10.0 11/10/2019 02:47 AM PO4 3.2 11/07/2019 04:43 AM ALBUMIN 4.2 11/06/2019 04:31 AM TOTPROT 7.2 11/06/2019 04:31 AM ALKPHOS 92 11/06/2019 04:31 AM AST 15 11/06/2019 04:31 AM ALT 18 11/06/2019 04:31 AM TOTBILI 0.6 11/06/2019 04:31 AM GFR >60 11/10/2019 02:47 AM GFRAA >60 11/10/2019 02:47 AM CBC w diff Lab Results Component Value Date/Time WBC 10.6 11/10/2019 02:47 AM RBC 5.79 (H) 11/10/2019 02:47 AM HGB 16.0 11/10/2019 02:47 AM HCT 46.5 11/10/2019 02:47 AM MCV 80.3 11/10/2019 02:47 AM MCH 27.6 11/10/2019 02:47 AM MCHC 34.4 11/10/2019 02:47 AM RDW 14.4 11/10/2019 02:47 AM PLTCT 270 11/10/2019 02:47 AM MPV 8.0 11/10/2019 02:47 AM Lab Results Component Value Date/Time NEUT 89 (H) 11/06/2019 04:31 AM ANC 14.00 (H) 11/06/2019 04:31 AM LYMA 9 (L) 11/06/2019 04:31 AM ALC 1.40 11/06/2019 04:31 AM YESSICA 2 (L) 11/06/2019 04:31 AM AMC 0.30 11/06/2019 04:31 AM EOSA 0 11/06/2019 04:31 AM AEC 0.00 11/06/2019 04:31 AM BASA 0 11/06/2019 04:31 AM ABC 0.00 11/06/2019 04:31 AM IMAGING: MRI Necrotic enhancing hemorrhagic mass in the left parieto-occipital lobe, 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 Less likely considerations are metastasis or lymphoma. This extends to the left lateral ventricle ependymal surface as well as the dural thickening overlying the left parietal convexity suspicious for involvement PATHOLOGY: N/A ASSESSMENT: 54 y.o. male with newly found necrotic enhancing hemorrhagic mass in the left parieto-occipital lobe on MRI. favored to represent a high grade gliom a.Surgery has been scheduled on Sunday. CT of chest and abdomen showed no extracranial disease. RECOMMENDATIONS: We reviewed his MRI and discussed the finding and possible diagnosis. Briefly di scussed the treatment option for high grade glioma. We recommend to bring him back after surgery to discuss the pathology finding an d finalize treatment options. CC: A copy of this note has been sent to the referring provider, Blaise Alston MD. GER SOUND * Edel Painting MD - 11/09/2019 9:46 AM MANAGER SOUND Associated Order(s): CONSULT ONCOLOGY PHYSICIAN Oncology Consult Note Admission Date: 11/06/2019 LOS: 3 days Reason for Consult: Parietal lesion Consult type: Opinion with orders Assessment/Plan 54-year-old male on dual antiplatelet therapy who presented with neurological sy mptoms found to have left parietal occipital hemorrhage secondary to mass. Onco logy consulted for recommendations #New parieto-occipital mass with hemorrhage and necrosis -MRI shows necrotic enhancing hemorrhagic mass in the left parieto-occipital lob e favoring high-grade glioma -CT chest and abdomen without evidence of neoplasia #Intracranial hemorrhage #CAD with prior PCI on dual antiplatelet therapy Recommendations: -Agree with OR for tissue diagnosis. Likely glioblastoma. Plan for surgery on Sunday. -Agree with steroids -Agree with radiation oncology consult -We will follow-up pathology and arrange outpatient follow-up with Dr. Perales. Patient was seen and discussed with Dr. Dawson. Edel Painting MD Heme/Onc Fellow Pager [phone] History of Present Illness: Benedicto Rios is a 54 y.o. male with a history of hype rtension, hyperlipidemia, prior NH on Plavix chronic A. fib on Eliquis, who pres ented with worsening headache for the last 4 to 6 weeks and new word finding dif ficulty, diplopia, balance problems. CT head at outside hospital showing left p arieto-occipital hemorrhage with subarachnoid hemorrhage component and possible underlying mass. He was transferred to and admitted to the neuro ICU. Rose ibarra consulted for recs. Medical History: Diagnosis Date Brain mass left parietal CAD (coronary artery disease), [place] coronary artery Chronic atrial fibrillation (HCC) COPD (chronic obstructive pulmonary disease) (HCC) Current smoker Diabetes mellitus (HCC) Hyperlipidemia, mixed Hypertension, essential History reviewed. No pertinent surgical history. Social History Socioeconomic History Marital status: Spouse name: Not on file Number of children: Not on file Years of education: Not on file Highest education level: Not on file Occupational History Not on file Social Needs Financial resource strain: Not on file Food insecurity: Worry: Not on file Inability: Not on file Transportation needs: Medical: Not on file Non-medical: Not on file Tobacco Use Smoking status: Current Every Day Smoker Years: 35.00 Types: Cigarettes Smokeless tobacco: Never Used Substance and Sexual Activity Alcohol use: Not on file Drug use: Not on file Sexual activity: Not on file Lifestyle Physical activity: Days per week: Not on file Minutes per session: Not on file Stress: Not on file Relationships Social connections: Talks on phone: Not on file Gets together: Not on file Attends adventism service: Not on file Active member of club or organization: Not on file Attends meetings of clubs or organizations: Not on file Relationship status: Not on file Intimate partner violence: Fear of current or ex partner: Not on file Emotionally abused: Not on file Physically abused: Not on file Forced sexual activity: Not on file Other Topics Concern Not on file Social History Narrative Not on file History reviewed. No pertinent family history. Allergies: Bee sting kit Scheduled Meds:amLODIPine (NORVASC) tablet 2.5 mg, 2.5 mg, Oral, QDAY atorvastatin (LIPITOR) tablet 80 mg, 80 mg, Oral, QDAY bisacodyL (DULCOLAX) rectal suppository 10 mg, 10 mg, Rectal, QDAY budesonide-formoteroL (SYMBICORT HFA) 160-4.5 mcg/actuation inhalation 2 puff, 2 puff, Inhalation, BID dexAMETHasone (DECADRON) tablet 4 mg, 4 mg, Oral, Q6H* docusate (COLACE) capsule 100 mg, 100 mg, Oral, BID heparin (porcine) PF syringe 5,000 Units, 5,000 Units, Subcutaneous, Q8H insulin aspart U-100 (NOVOLOG FLEXPEN) injection PEN 0-24 Units, 0-24 Units, Sub cutaneous, ACHS (22) insulin glargine (LANTUS SOLOSTAR) injection PEN 40 Units, 40 Units, Subcutaneou s, QHS liraglutide (VICTOZA) injection pen 1.8 mg, 1.8 mg, Subcutaneous, QDAY metoprolol tartrate (LOPRESSOR) tablet 25 mg, 25 mg, Oral, BID milk of magnesia (CONC) oral suspension 10 mL, 10 mL, Oral, QDAY nicotine (NICODERM CQ STEP 2) 14 mg/day patch 1 patch, 1 patch, Transdermal, QDA Y And Verification of Patch Placement and Integrity - Nicotine 14 MG/24HR, , Transderm al, BID senna/docusate (SENOKOT-S) tablet 1 tablet, 1 tablet, Oral, BID Continuous Infusions: PRN and Respiratory Meds:acetaminophen Q4H PRN, albuterol 0.5% Q4H PRN, nicotine polacrilex Q2H PRN, ondansetron (ZOFRAN) IV Q6H PRN, oxyCODONE Q4H PRN Review of Systems: All other systems reviewed and are negative. Vital Signs: Last Filed in 24 hours Vital Signs: 24 hour Range BP: 114/75 (11/09 813) Temp: 36.9 C (98.5 F) (11/09 813) Pulse: 87 (11/09 813) Respirations: 18 PER MINUTE (11/09 813) SpO2: 98 % (11/09 813) SpO2 Pulse: 79 (11/09 399) BP: (114-139)/(75-98) Temp: [36.7 C (98 F)-37 C (98.6 F)] Pulse: [72-87] Respirations: [18 PER MINUTE-20 PER MINUTE] SpO2: [95 %-98 %] Physical Exam: General: well developed, NAD Skin: no rash or wounds, normal capillary refill HEENT: NC/AT, EOMI, no conjunctival injection or drainage, no pharyngeal erythem a Neck: supple, no adenopathy, no JVD, Heart: RRR, normal S1 S2, no murmur Chest Wall: no deformity Lungs: normal WOB, lung browne clear bilaterally Abd: soft, NT, ND, +bs, no hepatosplenomegaly Extremities: pulses 2+ throughout, no edema Lymphatic: no LAD Neuro: alert and oriented, moves all extremities, speech intact Lab/Radiology/Other Diagnostic Tests: 24-hour labs: Results for orders placed or performed during the hospital encounter of 11/06/19 (from the past 24 hour(s)) POC GLUCOSE Collection Time: 11/08/19 12:52 PM Result Value Ref Range Glucose, POC 290 (H) 70 - 100 MG/DL POC GLUCOSE Collection Time: 11/08/19 4:59 PM Result Value Ref Range Glucose, POC 395 (H) 70 - 100 MG/DL POC GLUCOSE Collection Time: 11/08/19 6:44 PM Result Value Ref Range Glucose, POC 315 (H) 70 - 100 MG/DL POC GLUCOSE Collection Time: 11/08/19 10:01 PM Result Value Ref Range Glucose, POC 105 (H) 70 - 100 MG/DL POC GLUCOSE Collection Time: 11/09/19 1:46 AM Result Value Ref Range Glucose, POC 133 (H) 70 - 100 MG/DL CBC Collection Time: 11/09/19 4:00 AM Result Value Ref Range White Blood Cells 11.9 (H) 4.5 - 11.0 K/UL RBC 5.39 4.4 - 5.5 M/UL Hemoglobin 14.9 13.5 - 16.5 GM/DL Hematocrit 44.6 40 - 50 % MCV 82.7 80 - 100 FL MCH 27.7 26 - 34 PG MCHC 33.5 32.0 - 36.0 G/DL RDW 14.6 11 - 15 % Platelet Count 250 150 - 400 K/UL MPV 8.2 7 - 11 FL BASIC METABOLIC PANEL Collection Time: 11/09/19 4:00 AM Result Value Ref Range Sodium 140 137 - 147 MMOL/L Potassium 3.9 3.5 - 5.1 MMOL/L Chloride 107 98 - 110 MMOL/L CO2 22 21 - 30 MMOL/L Anion Gap 11 3 - 12 Glucose 212 (H) 70 - 100 MG/DL Blood Urea Nitrogen 21 7 - 25 MG/DL Creatinine 0.82 0.4 - 1.24 MG/DL Calcium 8.9 8.5 - 10.6 MG/DL eGFR Non >60 >60 mL/min eGFR >60 >60 mL/min POC GLUCOSE Collection Time: 11/09/19 6:50 AM Result Value Ref Range Glucose, POC 197 (H) 70 - 100 MG/DL POC GLUCOSE Collection Time: 11/09/19 11:56 AM Result Value Ref Range Glucose, POC 274 (H) 70 - 100 MG/DL Pertinent radiology reviewed. Edel Painting MD Pager GER SOUND Associated attestation - My Dawson MD - 11/09/2019 2:55 PM MANAGER SOUND ATTESTATION I personally performed the anne portions of the E/M visit, discussed case with Dr Reji Painting and concur with her documentation of history, physical exam, assessmen t, and treatment plan unless otherwise noted. We will await pathology and input of radiation oncology. Staff name: My Dawson MD Date: 11/09/2019 * Herman oTrres MD - 11/06/2019 12:49 PM MANAGER SOUND Associated Order(s): CONSULT REHABILITATION MEDICINE PHYSICIAN Physical Medicine & Rehabilitation Consult Note Date of Service: 11/06/2019 Benedicto Rios is a 54 y.o. male. : 1965 5 Primary Insurance: [employer] MEDICAID Secondary Insurance: Tertiary Insurance: Financial Class: Medicaid Repl [place] Date of Admission: 11/06/2019 Referring Physician: Meek Cobb MD Reason for Consult: evaluate for Post-Acute Rehab/Placement Precautions: Fall, aspiration Active Problems Active Problems: Left-sided nontraumatic intracerebral hemorrhage (HCC) Vasogenic edema (HCC) Other headache syndrome Aphasia R visual field cut Gait instability Impaired mobility and ADL Assessment & Plan Benedicto Rios is a 54 y.o. male admitted to [facility] on with the following issues: L parieto-occipital hemorrhage with likely underlying mass Impairments: aphasia, communication deficits and visual field cut Activity Limitations: ambulation, stairs, expression and balance impairment Participation Restrictions: unable to return home safely at the moment Post-acute care rehabilitation needs: Potentially acute inpatient rehab, may pro adrienne towards safe discharge home with outpatient versus home health PT/OT/PET SITTER. -At the moment, patient demonstrates therapy goals with PT/OT/PET SITTER (to address mi ld expressive aphasia and advance from current min assist level for transfers/am bulation to modified independence) and medical complexity to warrant likely shor t-stay acute inpatient rehab admission. Should patient have adequate support kwasi ilable at discharge, he may be able to progress towards safe discharge home with outpatient vs home health therapies. Goals & Barriers Family / Patient Goals: return home to previous level of function Mobility Goals: Overall goal is Modified independent Activities of Daily Living (ADLs) Goals: Overall goal is Modified independent Cognition / Communication Goals: Speech therapy will evaluate and treat cognitio n and communication deficits and assess for safe swallow Barriers: Poor family/social support Facilitators: improving strength / endurance Rehabilitation Prognosis: Good Tolerance for three hours of therapy a day: Good Prior to the inpatient rehabilitation admission complete the following: *Therapeutic goals; The patient will need to have clear therapeutic goals with a t least 2 out of 3 therapeutic disciplines, including PT, OT, and PET SITTER. This john l need to be determined prior to considering admission to acute inpatient rehabi litation. *Mass work-up: Plan to evaluate origin of underlying mass and tentative next stefania ps in care plan should be in place prior to consideration of acute inpatient servando ab admission. Herman Torres MD Rehab Consult Pager: [phone] History of Present Illness Chief Complaint: "Gap in Vision" Hospital Course: Acute Rios 54-year-old male with past medical history of CAD status post PCI x5 , HTN, HLD, A. fib on anticoagulation who was transferred to the [facility] on 11/06 with development of intracerebral hemorrhage with underlying brain mass suspected. Neurosurgery consulted plan for MRI to evaluate mass. Nicole ent has been participating with PT/OT/PET SITTER for therapy evaluations. Patient repo rts visual field cut, word finding difficulty, gait instability. Patient reside s with who is unable to provide consistent support given her chronic pain c onditions. Patient lives in [place], [place] and was previously independent wi th mobility and ADL performance. Past Medical History Medical History: Diagnosis Date CAD (coronary artery disease), [place] coronary artery Chronic atrial fibrillation (HCC) COPD (chronic obstructive pulmonary disease) (HCC) Current smoker Diabetes mellitus (HCC) Hyperlipidemia, mixed Hypertension, essential Past Surgical History History reviewed. No pertinent surgical history. Family\\Social History Social History Socioeconomic History Marital status: Not on file Spouse name: Not on file Number of children: Not on file Years of education: Not on file Highest education level: Not on file Occupational History Not on file Tobacco Use Smoking status: Current Every Day Smoker Years: 35.00 Types: Cigarettes Smokeless tobacco: Never Used Substance and Sexual Activity Alcohol use: Not on file Drug use: Not on file Sexual activity: Not on file Other Topics Concern Not on file Social History Narrative Not on file Family history reviewed; non-contributory Medications: amLODIPine (NORVASC) tablet 2.5 mg, 2.5 mg, Oral, QDAY atorvastatin (LIPITOR) tablet 80 mg, 80 mg, Oral, QDAY [START ON 11/08/2019] bisacodyL (DULCOLAX) rectal suppository 10 mg, 10 mg, Rectal , QDAY budesonide-formoteroL (SYMBICORT HFA) 160-4.5 mcg/actuation inhalation 2 puff, 2 puff, Inhalation, BID docusate (COLACE) capsule 100 mg, 100 mg, Oral, BID insulin aspart U-100 (NOVOLOG FLEXPEN) injection PEN 0-12 Units, 0-12 Units, Sub cutaneous, 5 X Daily metoprolol tartrate (LOPRESSOR) tablet 25 mg, 25 mg, Oral, BID milk of magnesia (CONC) oral suspension 10 mL, 10 mL, Oral, QDAY senna/docusate (SENOKOT-S) tablet 1 tablet, 1 tablet, Oral, BID PRN Medications: acetaminophen Q4H PRN, albuterol 0.5% Q4H PRN, calcium gluconate IV PRN (On Sohan l from Rx) AND Ionized Calcium PRN AND Notify Physician Ongoing, hydrALA ZINE Q6H PRN, labetalol (NORMODYNE; TRANDATE) injection Q15 MIN PRN, magnesium s ulfate PRN AND Magnesium PRN AND Notify Physician Ongoing, ondansetron ( ZOFRAN) IV Q6H PRN, potassium chloride SR PRN OR potassium chloride PRN, sod ium phosphate IVPB PRN (Wedding Coordinator from Rx) AND Phosphorus PRN AND Notify Physician Ongoing Allergies: Allergies Allergen Reactions Bee Sting Kit ANAPHYLAXIS Prior Level of Function Self-Care/ADLs: Independent Mobility: Independent Home Environment: Home Situation: Lives with Family (11/06/2019 12:00 PM) Patient Owned Equipment: None (11/06/2019 12:00 PM) Type of Home: House (11/06/2019 12:00 PM) Entry Stairs: No Stairs (11/06/2019 12:00 PM) In-Home Stairs: No Stairs (11/06/2019 12:00 PM) Support System: Spouse (unable to provide physical support due to chronic pain conditions per patient) Current Level of Function PT Gait:Gait Distance: 450 feet Gait: Assistance Level: Minimal Assist Gait: Ass istive Device: None Bed Mobility/Transfers Bed Mobility: Supine to Sit: Standby Assist, Head of Bed Elevated, No Rail, Requ ires Extra Time Transfer Type: Sit to/from Stand Transfer: Assistance Level: To/From, Bed, Bed Side Chair, Standby Assist Transfer: Assistive Device: None Transfers: Type Of Assistance: For Balance, For Safety Considerations End Of Activity Status: Up in Chair, Nursing Notified, Instructed Patient to Req uest Assist with Mobility, Instructed Patient to Use Call Light(pads alarm activ ated) OT ADL's Where Assessed: Chair Eating Assist: Stand By Assist Eating Deficits: Setup LE Dressing Assist: Stand By Assist LE Dressing Deficits: Don/Doff R Sock, Don/Doff L Sock Functional Transfer Assist: Minimal Assist Comment: Pt seated in chair upon OT arrival. Pt able to maurisio/doff socks while in chair. Pt ambulates short distance in hallway with min assist. Pt requesting to return to bed at end of session. Pt left supine with all needs met and bed alarm set. PET SITTER COGNITIVE EVALUATION SUMMARY PRAGMATICS: BEHAVIOR: AUDITORY COMPREHENSION: ORIENTATION: AUDITORY ATTENTION/WORKING MEMORY: AUDITORY MEMORY/SUSTAINED ATTENTION: NEW LEARNING: SEQUENCING/ORGANIZATION: PROBLEM SOLVING: REASONING: MATH/MONEY SKILLS: VISUAL PERCEPTUAL: SWALLOW EVALUATION SUMMARY Summary: Clinical swallow eval reveals functional oropharyngeal swallow w/ no pa tterns of dysphagia. No over clinical s/s of aspiration noted w/ any consistenc y of solids or thin liquids. The patient does present w/ at least moderate apha bautista (expression>receptive--reading/verbal/written), however unable to complete evaluation due to needing ECHO immediately after swallow eval. Disccussed results in person w/ PACK[facility] [employer]RI[employer] BEEF and RN. Swallow Recommendations* PO: Regular, Thin Liquids Plan: (F/U to complete language eval) Prognosis: Good(for swallow, fair for language) Review of Systems A 14 point review of systems was negative except for: as described in brief hosp ital course Physical Exam BP: 111/57 (11/06 1099) Temp: 37.2 C (98.9 F) (11/06 0800) Pulse: 70 (11/06 1100) Respirations: 15 PER MINUTE (11/06 1100) SpO2: 97 % (11/06 1100) SpO2 Pulse: 70 (11/06 1100) Height: 175.3 cm (69.02") (11/06 040) Body mass index is 28.64 kg/m. Gen: Alert & Oriented X 3, No Acute Distress Head: NCAT ENT: PERRL, EOMI, MMM CV: ext well perfused Lungs: non-labored respirations on room air Abdomen: Soft, non-distended : no Hill Skin: no visible rashes/lesions Ext: no c/c/e Psych: appropriate mood and affect MS: Root Right Left Shoulder Abduction C5 5 5 Elbow Flexion C5 5 5 Elbow Extension C7 5 5 Wrist Extension C6 5 5 Finger Flexion C8 5 5 Finger Abduction T1 5 5 Hip Flexion L2 5 5 Knee Extension L3 5 5 Dorsiflexion L4 5 5 Plantarflexion S1 5 5 Neuro: Cranial Nerves Right visual field cut, no facial numbness, no facial droop, hear ing grossly intact bilaterally, tongue protrusion midline, shoulder shrug intact bilaterally Finger to Nose Normal Heel to Welch Normal Rapid Alternating Movements Normal Upper Extremity Tone Normal Lower Extremity Tone Normal Upper Extremity Sensation Intact to light touch bilaterally Lower Extremity Sensation Intact to light touch bilaterally Memory/Cognition/Speech Able to provide accurate medical and social history. Spe ech fluent without dysarthria. Word-finding difficulty at times during interview . Intake/Output Summary: Intake/Output Summary (Last 24 hours) at 11/06/2019 1250 Last data filed at 11/06/2019 0800 Gross per 24 hour Intake 100 ml Output Net 100 ml No data recorded No data recorded No data recorded No data recorded No data recorded No data recorded No data recorded Basic Metabolic Profile Lab Results Component Value Date/Time NA 134 (L) 11/06/2019 04:31 AM K 4.3 11/06/2019 04:31 AM CA 9.2 11/06/2019 04:31 AM CL 103 11/06/2019 04:31 AM CO2 21 11/06/2019 04:31 AM Lab Results Component Value Date/Time BUN 17 11/06/2019 04:31 AM CR 0.88 11/06/2019 04:31 AM GLU 180 (H) 11/06/2019 04:31 AM CBC w diff Lab Results Component Value Date/Time WBC 15.7 (H) 11/06/2019 04:31 AM RBC 5.55 (H) 11/06/2019 04:31 AM HGB 15.5 11/06/2019 04:31 AM HCT 45.7 11/06/2019 04:31 AM MCV 82.3 11/06/2019 04:31 AM MCH 28.0 11/06/2019 04:31 AM RDW 14.5 11/06/2019 04:31 AM PLTCT 263 11/06/2019 04:31 AM MPV 8.1 11/06/2019 04:31 AM Lab Results Component Value Date/Time NEUT 89 (H) 11/06/2019 04:31 AM ANC 14.00 (H) 11/06/2019 04:31 AM LYMA 9 (L) 11/06/2019 04:31 AM ALC 1.40 11/06/2019 04:31 AM YESSICA 2 (L) 11/06/2019 04:31 AM AMC 0.30 11/06/2019 04:31 AM EOSA 0 11/06/2019 04:31 AM AEC 0.00 11/06/2019 04:31 AM BASA 0 11/06/2019 04:31 AM ABC 0.00 11/06/2019 04:31 AM Radiology: Reviewed GER SOUND * Bubba Ojeda MD - 11/06/2019 7:33 AM MANAGER SOUND Associated Order(s): CONSULT NEUROSURGERY PHYSICIAN Neurosurgery History and Physical Examination Benedicto Rios Admission Date: 11/06/2019 Chief Complaint: Headaches History of Present Illness: Benedicto Rios is a 54 y.o. male who is transferred to [facility] for diagnosis of new b rain mass with hemorrhagic component. He reports he was in his usual state of he alth until the past few weeks. Normally he does not get headaches. He reports that lately he has been having severe headaches every couple of days, and over t he past 3-4 days particularly he has had continuous severe headache. He said it did not respond to over the counter medications. He takes Eliquis for Afib and Plavix for cardiac stents. He has a personal smoking history and family history of lung cancer in his sister, and also his aunt. He does not have a personal history of known cancers. He reports nausea associated with his severe headaches , but he has never had vomiting. He hamzah visual complaints at this time. No e pisodes concerning for seizure-type activity. CT head showed left parietal mas with small hemorrhagic component and possibly surrounding edema Past Medical History: Medical History: Diagnosis Date CAD (coronary artery disease), [place] coronary artery Chronic atrial fibrillation (HCC) COPD (chronic obstructive pulmonary disease) (HCC) Current smoker Diabetes mellitus (HCC) Hyperlipidemia, mixed Hypertension, essential Past Surgical History: History reviewed. No pertinent surgical history. Social History: Social History Tobacco Use Smoking status: Current Every Day Smoker Years: 35.00 Types: Cigarettes Smokeless tobacco: Never Used Substance Use Topics Alcohol use: Not on file Drug use: Not on file Family History: Cardiac stents Allergies: Bee sting kit Medications: Medications Prior to Admission Medication Sig albuterol sulfate (PROAIR HFA) 90 mcg/actuation aerosol inhaler Inhale 2 puf fs by mouth into the lungs every 6 hours as needed for Wheezing or Shortness of Breath. Shake well before use. amLODIPine (NORVASC) 2.5 mg tablet Take 2.5 mg by mouth daily. apixaban (ELIQUIS) 5 mg tablet Take 5 mg by mouth twice daily. atorvastatin (LIPITOR) 80 mg tablet Take 80 mg by mouth daily. budesonide-formoteroL (SYMBICORT HFA) 160-4.5 mcg/actuation inhalation Inhal e 2 puffs by mouth into the lungs twice daily. clopiDOGrel (PLAVIX) 75 mg tablet Take 75 mg by mouth daily. diclofenac (VOLTAREN) 1 % topical gel Apply 4 g topically to affected area a s Needed. insulin glargine (LANTUS) 100 unit/mL vial Inject 40 Units under the skin at bedtime daily. liraglutide (VICTOZA) 0.6 mg/0.1 mL (18 mg/3 mL) injection pen Inject 1.8 mg under the skin daily. metoprolol XL (TOPROL XL) 50 mg extended release tablet Take 50 mg by mouth daily. Review of Systems: Full 10 point review of systems negative except for HPI. Physical Exam: Vital Signs: Last Filed In 24 Hours Vital Signs: 24 Hour Range BP: 108/64 (11/06 599) Temp: 37.4 C (99.3 F) (11/06 401) Pulse: 73 (11/06 599) Respirations: 15 PER MINUTE (11/06 599) SpO2: 96 % (11/06 599) SpO2 Pulse: 72 (11/06 599) Height: 175.3 cm (69.02") (11/06 401) BP: (104-118)/(64-73) Temp: [37.4 C (99.3 F)] Pulse: [73-86] Respirations: [15 PER MINUTE-22 PER MINUTE] SpO2: [96 %-97 %] General Appearance: No acute distress Lungs: Stable on room air Heart: warm and well perfused Abdomen: Soft, non-tender Extremities: No edema, redness or tenderness in the calves or thighs Neurologic Exam: Mental Status: Awake, alert and oriented x 4, fluent speech, normal cognition Pupils: Pupils equal round and reactive to light Visual Browne: Right inferior quadrantanopsia on testing of visual browne to con frontation Cranial Nerves: Other than field loss as described above, CN II-XII individually tested and found to be intact, gag not tested Motor: No focal deficit noted; follows commands x4 Sensation: Sensation intact to light touch throughout Gait: Able to transfer from wheelchair to bed after returning from scanner with stable gait Lab Tests: Hematology: Lab Results Component Value Date HGB 15.5 11/06/2019 HCT 45.7 11/06/2019 PLTCT 263 11/06/2019 WBC 15.7 11/06/2019 NEUT 89 11/06/2019 ANC 14.00 11/06/2019 ALC 1.40 11/06/2019 YESSICA 2 11/06/2019 AMC 0.30 11/06/2019 ABC 0.00 11/06/2019 MCV 82.3 11/06/2019 MCHC 34.0 11/06/2019 MPV 8.1 11/06/2019 RDW 14.5 11/06/2019 General Chemistry: Lab Results Component Value Date NA 134 11/06/2019 K 4.3 11/06/2019 CL 103 11/06/2019 CO2 21 11/06/2019 BUN 17 11/06/2019 CR 0.88 11/06/2019 GLU 180 11/06/2019 OBSCA 1.05 11/06/2019 CA 9.2 11/06/2019 MG 1.6 11/06/2019 PO4 3.7 11/06/2019 General Chemistry: Lab Results Component Value Date GAP 10 11/06/2019 ALBUMIN 4.2 11/06/2019 TOTBILI 0.6 11/06/2019 TOTPROT 7.2 11/06/2019 AST 15 11/06/2019 ALT 18 11/06/2019 ALKPHOS 92 11/06/2019 Radiology and other Diagnostics Review: Reviewed. as per HPI. Assessment/Plan: Benedicto Rios is a 54 y.o. male with a left parietal with hemorrhagic component. --No acute neurosurgical intervention at this time --Recommend MRI brain w/wo to evaluate soft tissues better --Continue to hold Plavix and Eliquis --CT Chest/Abdomen/Pelvis for metastatic workup --Continue care per primary team --Please call with any acute change or decline in exam --Discussed with staff Please call [phone] with questions Bubba Ojeda MD [id number] GER SOUND Associated attestation - Reyes Nesbitt MD - 11/06/2019 9:13 AM MANAGER SOUND ATTESTATION I personally performed the anne portions of the E/M visit, discussed case with re sident and concur with resident documentation of history, physical exam, assessm ent, and treatment plan unless otherwise noted. Left parietal hemorrhage with concern for underlying mass. [facility]. If this is a mass, will need further work-up with potential surgery. Luis Enrique kwok, given the fact that he is on Plavix & Eloquis (last taken 11/05), will need to wait until next week. Staff name: Reyes Nesbitt MD Date: 11/06/2019 documented in this encounter Miscellaneous Notes * Care Plan - Luli Corrigan RN ([place]) - 11/13/2019 12:08 PM MANAGER SOUND Pt DC'd home GER SOUND * Case Mgmt DC Plan - Deedee Messer RN - 11/13/2019 11:32 AM MANAGER SOUND Case Management Progress Note NAME:Benedicto Rios : 7 AGE: 54 y.o. ADMISSION DATE: 11/06/2019 DAYS ADMITTED: LOS: 7 days Todays Date: 11/13/2019 Plan Discharge to home Outpatient rehabilitation Interventions ? Support ? Info or Referral ? Discharge Planning Discharge Planning: Outpatient Rehabilitation Current PT recommendations: Home/prior living situation; Outpatient Current OT recommendations: Home/prior living situation; Outpatient Current PET SITTER recommendations: PET SITTER intervention at next level of care (OP) Patient has adequate transportation options to attend outpatient therapy appoint ments, and family support to participate in recovery recommendations. [facility] [place] red a list of PT/OT/ST providers in patient's area to patient's room, along with written instructions describing process of accessing outpatient therapies - he appreciates and verbalizes understanding of process. We discussed that when all three therapies are needed, often utilizing the local hospital for outpatient re hab ([facility] in this case) can help decrease the number of trips/appointment s. Mr. Rios has family member/friend here in room as well for transportation home. ? Medication Needs ? Financial ? Legal ? Other Disposition ? Expected Discharge Date Expected Discharge Date: 11/14/19 Expected Discharge Time: 1200 ? Transportation Does the patient need discharge transport arranged?: No Transportation Name, Phone and Availability #1: Shira Rios [phone]([facility]) ? Next Level of Care (Acute Psych discharges only) ? Discharge Disposition Durable Medical Equipment No service has been selected for the patient. [facility] Dest[facility] No service has been selected for the patient. [facility] No service has been selected for the patient. [facility] Dialysis/Infusion No service has been selected for the patient. KATE Tay, RN, ACM-agricultural produce commission agent Nurse Cardiac Rehab Nurse [phone], *[phone] GER SOUND * Care Coordination-Inpatient - Sara Villafana RN - 11/13/2019 10:53 AM MANAGER SOUND Benedicto Rios Left Parietal Craniotomy for Tumor Resection on 11/11/[address] Nesbitt Neurosurgery Discharge Instructions Contact information: ? Call Neurosurgery if you have questions or are experiencing problems at [facility] [phone]. Post-operative wound care: ? Your incision has britta in place. Your incision may be open to air. ? Keep your incision dry for 5 days. Shower neck down until 11/16/19. Starting 07/27 use baby shampoo to wash incision daily, pat dry and leave open to air. ? Do not submerge (pool/tub) your incision under water at all for 4 weeks. ? Have someone look at your incision every day. It should look the same or cynthia r daily. ? Do not apply any ointment, cream or lotions to incision line. Activity restrictions: ? Avoid pushing, pulling, lifting or bending more than 10 pounds (about a gallon of milk). If you hold children, they should be placed in your lap or crawl into lap if old enough. ? Do NOT drive until you are cleared by your physician. Post-operative pain and medications: ? Please use your pain medications and muscle relaxers as prescribed. ? Pain medications can make you constipated. You may take a stool softener and m iralax. ? Do NOT take Ibuprofen or NSAIDS (Aleve, Motrin, Naproxen) until Doctor approve d. ? Tylenol is approved for pain control. This is available over the counter. Follow up appointment: ? 11/25/19 @ 1:30 with Nurse Practitioner for staple removal and follow up. ? 12/12/19 @ 1:[address] Nesbitt Neurosurgeon for surgical follow up. Please contact Neurosurgery if you develop any of the following: ? New or worsening changes in memory, confusion, speech or vision. ? Seizure or new seizure like activity. ? Fever 101 or greater. Redness, swelling, continuous oozing, fluid collection, warmth or bad odor near the incision site. ? Intense pain that is getting worse or unrelieved by pain medications or muscle relaxers. Sara Villafana RN Clinical Nurse Coordinator Neurosurgery Office: [phone] GER SOUND * Anesthesia Post Op Day 1 - Daiana Carrera SRNA - 11/12/2019 9:49 AM MANAGER SOUND Anesthesia Follow-Up Evaluation: Post-Procedure Day One Name: Benedicto Rios : 1965 Age: 54 y.o. Sex: male Procedure Date: 11/11/2019 Procedure: Procedure(s) with comments: LEFT PARIETAL CRANIOTOMY FOR TUMOR RESECTION - CASE LENGTH 3.5 HOURS, BRAINLAB, MICROSCOPE OH6#2, ANNIE, RICKY 7512 START STEREOTACTIC COMPUTER-ASSISTED CRANIAL PROCEDURE - INTRADURAL MICROSURGICAL TECHNIQUES - REQUIRING OPERATING MICROSCOPE USE Physical Assessment Height: 175.3 cm (69.02") Weight: 89.9 kg (198 lb 3.1 oz) Vital Signs (Last Filed in 24 hours) BP: 121/82 (11/12 899) Temp: 37.2 C (99 F) (11/12 799) Pulse: 82 (11/12 899) Respirations: 16 PER MINUTE (11/11 1712) SpO2: 99 % (11/12 899) SpO2 Pulse: 82 (11/12 899) Patient History Allergies Allergies Allergen Reactions Bee Sting Kit ANAPHYLAXIS Bee [Bumble Bee] ANAPHYLAXIS Medications Scheduled Meds:amLODIPine (NORVASC) tablet 2.5 mg, 2.5 mg, Oral, QDAY atorvastatin (LIPITOR) tablet 80 mg, 80 mg, Oral, QDAY bisacodyL (DULCOLAX) rectal suppository 10 mg, 10 mg, Rectal, QDAY budesonide-formoteroL (SYMBICORT HFA) 160-4.5 mcg/actuation inhalation 2 puff, 2 puff, Inhalation, BID dexAMETHasone (DECADRON) tablet 4 mg, 4 mg, Oral, Q6H* docusate (COLACE) capsule 100 mg, 100 mg, Oral, BID insulin aspart U-100 (NOVOLOG FLEXPEN) injection PEN 0-24 Units, 0-24 Units, Sub cutaneous, ACHS (22) insulin glargine (LANTUS SOLOSTAR) injection PEN 40 Units, 40 Units, Subcutaneou s, QHS levETIRAcetam (KEPPRA) tablet 500 mg, 500 mg, Oral, BID liraglutide (VICTOZA) injection pen 1.8 mg, 1.8 mg, Subcutaneous, QDAY metoprolol tartrate (LOPRESSOR) tablet 25 mg, 25 mg, Oral, BID milk of magnesia (CONC) oral suspension 10 mL, 10 mL, Oral, QDAY nicotine (NICODERM CQ STEP 2) 14 mg/day patch 1 patch, 1 patch, Transdermal, QDA Y And Verification of Patch Placement and Integrity - Nicotine 14 MG/24HR, , Transderm al, BID pantoprazole DR (PROTONIX) tablet 40 mg, 40 mg, Oral, QDAY(21) senna/docusate (SENOKOT-S) tablet 1 tablet, 1 tablet, Oral, BID Continuous Infusions: PRN and Respiratory Meds:acetaminophen Q6H PRN, albuterol 0.5% Q4H PRN, aluminum /magnesium hydroxide PRN, fentaNYL citrate PF Q1H PRN, labetalol (NORMODYNE; TRA NDATE) injection Q6H PRN, nicotine polacrilex Q2H PRN, ondansetron (ZOFRAN) IV Q 6H PRN, oxyCODONE Q3H PRN Diagnostic Tests Hematology: Lab Results Component Value Date HGB 13.8 11/12/2019 HCT 41.5 11/12/2019 PLTCT 243 11/12/2019 WBC 15.4 11/12/2019 NEUT 89 11/06/2019 ANC 14.00 11/06/2019 ALC 1.40 11/06/2019 YESSICA 2 11/06/2019 AMC 0.30 11/06/2019 EOSA 0 11/06/2019 ABC 0.00 11/06/2019 MCV 82.3 11/12/2019 MCH 27.4 11/12/2019 MCHC 33.3 11/12/2019 MPV 8.3 11/12/2019 RDW 14.2 11/12/2019 General Chemistry: Lab Results Component Value Date NA 137 11/11/2019 K 4.1 11/11/2019 CL 105 11/11/2019 CO2 22 11/11/2019 GAP 10 11/11/2019 BUN 17 11/11/2019 CR 0.76 11/11/2019 GLU 214 11/11/2019 CA 8.0 11/11/2019 ALBUMIN 4.2 11/06/2019 OBSCA 1.01 11/07/2019 MG 2.3 11/12/2019 TOTBILI 0.6 11/06/2019 PO4 3.8 11/12/2019 Coagulation: Lab Results Component Value Date PTT 28.4 11/06/2019 INR 1.1 11/06/2019 Follow-Up Assessment Patient location during evaluation: floor Anesthetic Complications: Anesthetic complications: The patient did not experience any anesthestic complic ations. Pain: Management:adequate Level of Consciousness: awake and alert Hydration:acceptable Airway Patency: patent Respiratory Status: acceptable, spontaneous ventilation and room air Cardiovascular Status:acceptable Regional/Neuroaxial: Comments: Patient denies N/V. Tolerating PO intake. Adequate pain control. GER SOUND * Operative Report (Direct Entry) - Reyes Nesbitt MD - 11/11/2019 8:59 AM MANAGER SOUND Operative Note Name: Benedicto Rios is a 54 y.o. male : 1965 DATE OF OPERATION: 11/11/2019 Surgeon(s) and Role: * Reyes Nesbitt MD - Primary * Davy Garcia MD - Resident - Assisting Pre-op Diagnosis: Left parietal tumor Post-op Diagnosis: Same Procedure: Procedure(s) (LRB): LEFT PARIETAL CRANIOTOMY FOR TUMOR RESECTION (Left) STEREOTACTIC COMPUTER-ASSISTED CRANIAL PROCEDURE - INTRADURAL MICROSURGICAL TECHNIQUES - REQUIRING OPERATING MICROSCOPE USE Anesthesia: General endotracheal anesthesia Estimated Blood Loss: 250 ml Drains: none Specimens: ID Type Source Tests Collected by Time Destination 1 : LEFT PARIETAL TUMOR Tissue Brain SURGICAL PATHOLOGY Reyes Nesbitt MD 11/11/2019 0924 2 : LEFT PARIETAL TUMOR Tissue Brain SURGICAL PATHOLOGY Reyes Nesbitt MD 11/11/2019 1038 Complications: none Implants: KLS plating system Indication for Procedure: 54-year-old male who initially presented with severe h eadaches and some visual difficulty. CT scan showed evidence of left parietal h emorrhage with concern for underlying mass. He does take Eliquis and Plavix. 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 After reviewing the indications, risks, alternatives, and potential comp lications of the procedure, patient has elected to proceed with surgery. Description of Procedure: After obtaining informed consent, the patient was brou ght back to the operating room where orotracheal anesthesia was induced. The [facility] head of maintenance was attached and the patient was positioned appropriately. Taplet [employer] Body neuro navigation system was utilized and registration was performed to allow for intraoperative stereotaxis. Clippers were used to remove a small a mount of hair. Chlorhexidine, alcohol, and DuraPrep were applied in usual steri le fashion. After confirming site and side, a proper timeout was performed. St erile towels, Ioban, and sterile drapes were applied in the usual sterile fashio n. Local anesthetic was injected into the incision site. A 10 blade scalpel was used to make an S-shaped incision over the left parietal lobe. Monopolar cautery was used to obtain hemostasis and dissect down to the b one. Cerebellar retractors were placed for retraction. A grease machine worker was used t o make 2 bur holes and a craniotomy was fashioned in the usual manner. Several epidural tack up sutures were placed. The dura was then opened in the usual man ner and the C-shaped incision. Right underneath the dura, a dark, necrotic tumo r was visible. We did send a piece of this for frozen section which later retur josh as consistent with high-grade glioma. We carefully worked around the edges of the tumor using bipolar cautery, and stephanie ro instruments. We brought in the microscope for microdissection and used it fo r the remainder of the case. We carefully found a border in between the gliotic white matter and the tumor interface. We worked him back interface as much as we could all the way around the tumor. Anteriorly, in the deep region, we did e nter the ventricle and saw clear CSF. We carefully worked to remove as much of the tumor as we could. At the completion of the tumor resection, we did use our neuro navigation to see that we had a good resection. Of note, the tumor was a little bit bloody, which was able to be controlled with bipolar cautery. Once we were satisfied with the amount of tumor resection and hemostasis, the cavity was lined with Surgicel. The dura was then closed using 4-0 Nurolon sutures in a simple interrupted fashion. A dry piece of Gelfoam was placed on top of the dura. The bone flap was then pl ated and secured using the KLS plating system. The wound was thoroughly irrigat ed with bacitracin irrigation and hemostasis was obtained. The tissues were leroy sed in anatomical layers using 2-0 Vicryl sutures. The skin was closed using st aples. The incision was cleaned and dressed in the usual sterile fashion. The patient was extubated, moved to the [facility], and taken to the ICU in stable fashi on. All sponge and needle counts were correct. I performed this procedure with the resident. Disposition: ICU - extubated and stable. Condition: stable Post-op Instructions: MRI in AM. Dex. Keppra. SBP goal <140. Post-op Exam: Patient sedated, unable to perform neurological exam. Reyes Nesbitt MD Pager [phone] GER SOUND * Care Plan - Janet George RN - 11/08/2019 5:03 PM MANAGER SOUND N/a GER SOUND * Care Plan - Jong Monroy - 11/06/2019 4:17 PM MANAGER SOUND [facility] CONSULTATION ASSESSMENT/RECOMMENDATIONS [email or web address] Tobacco Use Treatment Practical Counseling was provided in hospital (including r ecognizing danger situations, developing coping skills and providing basic infor mation about quitting). MEDICATION RECOMMENDATIONS TO QUIT TOBACCO: In-patient quit-tobacco medication: If medically acceptable, please provide Yousuf ysabel patch (14 mg), Nicotine gum (4 mg) during his stay in the hospital. Discharge medication options: If medically acceptable, please provide Nicotine p atch (14 mg), Nicotine gum (4 mg), Nicotrol Inhaler prescriptions upon discharge . Post discharge support referral: Accepted State Tobacco Quitline and Accepted llow up provided by [employer] Educational Material: Accepted History of Present Illness Reports using 0 cigarettes per day. Reports using tobacco within 5 minutes minutes of waking. E-Cigarette or vape use: Former Other tobacco use: Pipe tobacco equivalent to 6 cpd. He is cutting back his smok ing as he used to smoke 3 ppd. Years used: 38 Withdrawal: Moderate nicotine withdrawal based upon the patients rating on e Nicotine Withdrawal Behavior Rating Scale. Plan about smoking after patient leaves the hospital: I plan to try to quit when I leave the hospital Interest in quitting: High Set a quit date: NO Contact Information If I can be of further assistance, please call [employer] [phone] GER SOUND * Case Mgmt DC Plan - Mirna Steve RN - 11/06/2019 12:49 PM MANAGER SOUND Case Management Admission Assessment NAME:Benedicto Rios :1965 AGE: 54 y.o. ADMISSION DATE: 11/06/2019 DAYS ADMITTED: LOS: 0 days Todays Date: 11/06/2019 Source of Information: Patient Problem Intracerebral Hemorrhage 54 y.o.malewho is transferred to [facility] for diagnosis of new brain mass with hemorrhagic component. He reports he was in his usual state of health until the past few weeks. Normally he does not get headaches. He reports that lately he has been having severe headaches every couple of days, and over the past 3-4 days particularly he has had continuous severe headache. Plan Plan: Case Management Assessment, Assist PRN with SW/NCM Services, Discharge Allen nning for Facility Anticipated PT/OT Interventions Reviewed EMR. This CM met with patient for assessment on this date. Provided c ontact information and explanation of SW/NCM roles. Reviewed [facility] , Preparing for Discharge, and Preferred Provider Network hand-outs. Provided o pportunity for questions and discussion. Patient was encouraged to contact Case Management team with questions and concerns during hospitalization and until pat ient is able to transition back to the patient's primary care physician. This Nurse Cardiac Rehab Nurse provided Stroke & Brain Injury Resource List for community resources including self-care, support groups, local and national organizations, rehabilitation options, respite care, and financial assistance. Reviewed resource list and provided opportunity for questions. Patient Address/Phone [address] [facility] [address] (home) Emergency Contact Extended Emergency Contact Information Primary Emergency Contact: Pat Riosissa Mobile Relation: Spouse Healthcare Directive Healthcare Directive: No, patient does not have a healthcare directive Would patient like to fill out a (a new) Healthcare Directive?: No, patient decl ined Psych Advance Directive (Psych unit only): No, patient does not have a Psych Adv ance Directive Transportation Does the patient need discharge transport arranged?: No Transportation Name, Phone and Availability #1: Shira Rios [phone]([facility]) Expected Discharge Date Expected Discharge Date: 11/08/19 Expected Discharge Time: 1400 Living Situation Prior to Admission ? Living Arrangements Type of Residence: Home, independent Living Arrangements: Spouse/significant other Bathroom Shower / Tub: Tub/Shower Unit How many levels in the residence?: 1 Can patient live on one level if needed?: Yes(apartment on ground level) Assistance needed prior to admit or anticipated on discharge: Yes(after) Who provides assistance or could if needed?: Shira and daughter Dilia Are they in good health?: Yes Can support system provide 24/7 care if needed?: Maybe ? Level of Function Prior level of function: Independent(he reports being independent with care but having shortness of breath on exertion) ? Cognitive Abilities Cognitive Abilities: Continue to Assess, Participates in decision making(patient with some expressive aphasia) Financial Resources ? Coverage Primary Insurance: Medicaid(Medicaid [facility] Aetna ID [id number]) Secondary Insurance: No insurance Additional Coverage: RX(prescriptions are filled at [facility] in [place]; he reports they have been affordable) ? Source of Income Source Of Income: Other (comment)(he is trying to get SSDI; has court appearance for appeal) ? Financial Assistance Needed? No Psychosocial Needs ? Mental Health Mental Health History: No(denies) ? Substance Use History ? Other Cigarettes Current/Previous Services ? PCP Dr. Sissy Kingsley He last saw PCP within a couple months Motor Vehicle Dispatcher is Dr. José (sp?) Installation Tech is Dr. Grider ? Pharmacy [facility] in [place] ? Durable Medical Equipment Durable Medical Equipment at home: None (however, he is in process of getting a CPAP which has already been ordered. He did have sleep study completed) ? Home Health Receiving home health: No ? Hemodialysis or Peritoneal Dialysis Undergoing hemodialysis or peritoneal dialysis: No ? Tube/Enteral Feeds Receive tube/enteral feeds: No ? Infusion Receive infusions: No ? Private Duty Private duty help used: No ? Home and Community Based Services Home and community based services: No ? Patrice White Patrice White: N/A ? Hospice Hospice: No ? Outpatient Therapy PT: In the past When did patient receive care?: "long time ago" for his back, knees and shoulder Name of rehab location/group: in [place] Would patient return for future services?: Yes OT: No PET SITTER: No ? Jail Facility/Halfway SNF: No NH: No ? Inpatient Rehab IPR: No ? Long-Term Acute Care Hospital LTACH: No ? Acute Hospital Stay Acute Hospital Stay: No Mirna Lai RN, BSN, ACM Integrated Nurse Cardiac Rehab Nurse Neurology Service Pager: [phone] GER SOUND documented in this encounter Plan of Treatment Date/Time Name Type Priority Associated Diag noses 11/11/2019 9:33 AM MANAGER SOUND IDH1 NGS NON BLOOD Pathology 11/11/2019 9:33 AM MANAGER SOUND IDH2 NGS NON BLOOD Pathology Order Schedule Name Type Priority Associated Diag noses ONE TIME for 1 Occurrences starting 10/10 until 11/06/2019, 1 completed GENERAL RAD CHEST Imaging Routine EXTERNAL IMAGING ONE TIME for 1 Occurrences starting 10/10 until 11/06/2019, [address] HEAD EXTERNAL IMAGING Imaging Routine ONE TIME for 1 Occurrences starting 01/2020 until 11/11/2019 IDH1 NGS NON BLOOD Pathology ONE TIME for 1 Occurrences starting 01/2020 until 11/11/2019 IDH2 NGS NON BLOOD Pathology documented as of this encounter Goals Goal Patient Associated Recent Progress Patient-Stat Aut hor Goal Type Problems ed? Smoking Cessation Lifestyle No Marjan Yang RN documented as of this encounter Procedures Comments Procedure Name Priority Date/Time Associated Diag nosis POC GLUCOSE 11/13/2019 8:03 AM MANAGER SOUND HC CBC,AUTOMATED Routine 11/13/2019 4:19 AM MANAGER SOUND HC PHOSPHOROUS, SERUM Routine 11/13/2019 4:19 AM MANAGER SOUND HC MAGNESIUM Routine 11/13/2019 4:19 AM MANAGER SOUND POC GLUCOSE 11/12/2019 10:07 PM MANAGER SOUND POC GLUCOSE 11/12/2019 5:44 PM MANAGER SOUND POC GLUCOSE 11/12/2019 11:24 AM MANAGER SOUND POC GLUCOSE 11/12/2019 6:24 AM MANAGER SOUND HC CBC,AUTOMATED Routine 11/12/2019 3:40 AM MANAGER SOUND HC PHOSPHOROUS, SERUM Routine 11/12/2019 3:40 AM MANAGER SOUND HC MAGNESIUM Routine 11/12/2019 3:40 AM MANAGER SOUND MRI HEAD WO/W CONTRAST Routine 11/12/2019 12:35 AM MANAGER SOUND POC GLUCOSE 11/11/2019 9:34 PM MANAGER SOUND BASIC METABOLIC PANEL STAT 11/11/2019 5:40 PM MANAGER SOUND POC GLUCOSE 11/11/2019 5:39 PM MANAGER SOUND POC GLUCOSE 11/11/2019 12:33 PM MANAGER SOUND POC GLUCOSE 11/11/2019 10:08 AM MANAGER SOUND NOTES 11/11/2019 9:33 AM MANAGER SOUND HC FROZEN SECTION #1 Routine 11/11/2019 Nontrauma tic hemorrhage 9:24 AM MANAGER SOUND of left cerebral hemisphere (HCC) MICROSURGICAL TECHNIQUES 11/11/2019 Nontraumatic hemorrhage - REQUIRING OPERATING 8:00 AM MANAGER SOUND of left cerebra l MICROSCOPE USE hemisphere (HCC) STEREOTACTIC 11/11/2019 Nontraumatic hemorr marlon COMPUTER-ASSISTED CRANIAL 8:00 AM MANAGER SOUND of left cer ebral PROCEDURE - INTRADURAL hemisphere (HCC) CRANIECTOMY/ BONE FLAP 11/11/2019 Nontraumatic h emorrhage CRANIOTOMY EXCISION 8:00 AM MANAGER SOUND of left cerebral SUPRATENTORIAL BRAIN hemisphere (HCC) TUMOR POC GLUCOSE 11/11/2019 7:19 AM MANAGER SOUND POC GLUCOSE 11/11/2019 6:14 AM MANAGER SOUND HC PLATELET P2Y12 Routine 11/11/2019 RESPONSE 4:18 AM MANAGER SOUND HC CBC,AUTOMATED Routine 11/11/2019 4:18 AM MANAGER SOUND HC BASIC METABOLIC PANEL Routine 11/11/2019 4:18 AM MANAGER SOUND POC GLUCOSE 11/10/2019 10:29 PM MANAGER SOUND POC GLUCOSE 11/10/2019 6:06 PM MANAGER SOUND POC GLUCOSE 11/10/2019 11:20 AM MANAGER SOUND HC BLOOD TYPING, ABO 11/10/2019 CONFIRM 91 9:33 AM MANAGER SOUND HC ABO GROUP Routine 11/10/2019 9:00 AM MANAGER SOUND POC GLUCOSE 11/10/2019 6:17 AM MANAGER SOUND HC PLATELET P2Y12 Routine 11/10/2019 RESPONSE 6:16 AM MANAGER SOUND HC CBC,AUTOMATED Routine 11/10/2019 2:47 AM MANAGER SOUND HC BASIC METABOLIC PANEL Routine 11/10/2019 2:47 AM MANAGER SOUND POC GLUCOSE 11/09/2019 10:01 PM MANAGER SOUND POC GLUCOSE 11/09/2019 4:23 PM MANAGER SOUND POC GLUCOSE 11/09/2019 11:56 AM MANAGER SOUND POC GLUCOSE 11/09/2019 6:50 AM MANAGER SOUND HC CBC,AUTOMATED Routine 11/09/2019 4:00 AM MANAGER SOUND HC BASIC METABOLIC PANEL Routine 11/09/2019 4:00 AM MANAGER SOUND POC GLUCOSE 11/09/2019 1:46 AM MANAGER SOUND POC GLUCOSE 11/08/2019 10:01 PM MANAGER SOUND POC GLUCOSE 11/08/2019 6:44 PM MANAGER SOUND POC GLUCOSE 11/08/2019 4:59 PM MANAGER SOUND POC GLUCOSE 11/08/2019 12:52 PM MANAGER SOUND POC GLUCOSE 11/08/2019 6:52 AM MANAGER SOUND HC CBC,AUTOMATED Routine 11/08/2019 4:08 AM MANAGER SOUND HC BASIC METABOLIC PANEL Routine 11/08/2019 4:08 AM MANAGER SOUND POC GLUCOSE 11/08/2019 4:05 AM MANAGER SOUND POC GLUCOSE 11/07/2019 9:03 PM MANAGER SOUND POC GLUCOSE 11/07/2019 5:40 PM MANAGER SOUND POC GLUCOSE 11/07/2019 12:45 PM MANAGER SOUND HC CALCIUM IONIZED Routine 11/07/2019 12:39 PM MANAGER SOUND POC GLUCOSE 11/07/2019 7:00 AM MANAGER SOUND POC GLUCOSE 11/07/2019 4:48 AM MANAGER SOUND HC CBC,AUTOMATED Routine 11/07/2019 4:43 AM MANAGER SOUND HC PHOSPHOROUS, SERUM Routine 11/07/2019 4:43 AM MANAGER SOUND HC MAGNESIUM Routine 11/07/2019 4:43 AM MANAGER SOUND HC CALCIUM IONIZED Routine 11/07/2019 4:43 AM MANAGER SOUND HC BASIC METABOLIC PANEL Routine 11/07/2019 4:43 AM MANAGER SOUND POC GLUCOSE 11/06/2019 9:54 PM MANAGER SOUND HC PLATELET P2Y12 LUIS FELIPE 11/06/2019 RESPONSE 8:15 PM MANAGER SOUND POC GLUCOSE 11/06/2019 7:[address] ABD/PELV W CONTRAST Routine 11/06/2019 6:[address] CHEST W CONTRAST Routine 11/06/2019 6:38 PM MANAGER SOUND MRI HEAD WO/W CONTRAST Routine 11/06/2019 6:20 PM MANAGER SOUND HC UREA NITROGEN-URINE Routine 11/06/2019 1:10 PM MANAGER SOUND HC SODIUM-URINE Routine 11/06/2019 1:10 PM MANAGER SOUND HC OSMOLALITY-URINE Routine 11/06/2019 1:10 PM MANAGER SOUND HC CREATININE-URINE Routine 11/06/2019 1:10 PM MANAGER SOUND POC GLUCOSE 11/06/2019 12:22 PM MANAGER SOUND HC OSMOLALITY;BLOOD Routine 11/06/2019 11:30 AM MANAGER SOUND 2-D + DOPPLER Routine 11/06/2019 ECHOCARDIOGRAM 9:56 AM MANAGER SOUND POC GLUCOSE 11/06/2019 7:43 AM MANAGER SOUND CTA HEAD WO/W CONTR+POST STAT 11/06/2019 PRO 5:57 AM MANAGER SOUND HC TROPONIN-I STAT 11/06/2019 4:31 AM MANAGER SOUND HC PTT(APTT) STAT 11/06/2019 4:31 AM MANAGER SOUND HC PT(INR) STAT 11/06/2019 4:31 AM MANAGER SOUND HC CBC W/ AUTOMATED DIFF STAT 11/06/2019 4:31 AM MANAGER SOUND HC PHOSPHOROUS, SERUM STAT 11/06/2019 4:31 AM MANAGER SOUND HC MAGNESIUM STAT 11/06/2019 4:31 AM MANAGER SOUND HC HEMOGLOBIN A1C Routine 11/06/2019 4:31 AM MANAGER SOUND HC CALCIUM IONIZED STAT 11/06/2019 4:31 AM MANAGER SOUND HC Routine 11/06/2019 LIPID-5:CHOL/TRG/HDL/LDL+ 4:31 AM MANAGER SOUND VLDL HC COMPREHENSIVE STAT 11/06/2019 METABOLIC PANEL 4:31 AM MANAGER SOUND CONSULT IV THERAPY TEAM Routine 11/06/2019 4:24 AM MANAGER SOUND ECG 12-LEAD STAT 11/06/2019 4:02 AM MANAGER SOUND ECG-SCAN 11/06/2019 12:[address] HEAD EXTERNAL IMAGING Routine 11/05/2019 12:05 AM MANAGER SOUND GENERAL RAD CHEST Routine 11/05/2019 EXTERNAL IMAGING 12:00 AM MANAGER SOUND documented in this encounter Results * POC GLUCOSE (11/13/2019 8:03 AM MANAGER SOUND) Glucose, POC 195 (H) 70 - 100 MG/DL MAIN LAB Specimen Performing Organization Address [facility] one Number MAIN LAB [address] [place] [address] * PHOSPHORUS (11/13/2019 4:19 AM MANAGER SOUND) Phosphorus 3.6Comment: NOTE NEW REFERENCE 2.0 - 4.5 MG/DL MAIN LAB RANGES Specimen Blood Performing Organization Address [facility] one Number MAIN LAB [address] [place] [address] * MAGNESIUM (11/13/2019 4:19 AM MANAGER SOUND) Pathologist [facility] Magnesium 2.1 1.6 - 2.6 mg/dL MAIN LAB Specimen Blood Performing Organization Address [facility] one Number MAIN LAB [address] [place] [address] * CBC (11/13/2019 4:19 AM MANAGER SOUND) White Blood 11.7 (H) 4.5 - 11.0 K/UL MAIN LAB Cells RBC 5.08 4.4 - 5.5 M/UL MAIN LAB Hemoglobin 13.8 13.5 - 16.5 GM/DL MAIN LAB Hematocrit 42.1 40 - 50 % MAIN LAB MCV 82.8 80 - 100 FL MAIN LAB MCH 27.1 26 - 34 PG MAIN LAB MCHC 32.7 32.0 - 36.0 G/DL MAIN LAB RDW 14.8 11 - 15 % MAIN LAB Platelet Count 245 150 - 400 K/UL MAIN LAB MPV 8.2 7 - 11 FL MAIN LAB Specimen Blood Performing Organization Address [facility] one Number MAIN LAB [address] [place] [address] * POC GLUCOSE (11/12/2019 10:07 PM MANAGER SOUND) Glucose, POC 238 (H) 70 - 100 MG/DL MAIN LAB Specimen Performing Organization Address [facility] one Number MAIN LAB [address] [place] [address] * POC GLUCOSE (11/12/2019 5:44 PM MANAGER SOUND) Glucose, POC 240 (H) 70 - 100 MG/DL MAIN LAB Specimen Performing Organization Address [facility] one Number MAIN LAB [address] [place] [address] * POC GLUCOSE (11/12/2019 11:24 AM MANAGER SOUND) Glucose, POC 165 (H) 70 - 100 MG/DL KU MAIN LAB Specimen Performing Organization Address [facility] Ph one Number MAIN LAB [address] [place] [address] * POC GLUCOSE (11/12/2019 6:24 AM MANAGER SOUND) Glucose, POC 142 (H) 70 - 100 MG/DL KU MAIN LAB Specimen Performing Organization Address [facility] one Number MAIN LAB [address] [place] [address] * PHOSPHORUS (11/12/2019 3:40 AM MANAGER SOUND) Phosphorus 3.8Comment: NOTE NEW REFERENCE 2.0 - 4.5 MG/DL MAIN LAB RANGES Specimen Blood Performing Organization Address [facility] one Number MAIN LAB [address] [place] [address] * MAGNESIUM (11/12/2019 3:40 AM MANAGER SOUND) Magnesium 2.3 1.6 - 2.6 mg/dL MAIN LAB Specimen Blood Performing Organization Address [facility] one Number MAIN LAB [address] [place] [address] * CBC (11/12/2019 3:40 AM MANAGER SOUND) White Blood 15.4 (H) 4.5 - 11.0 K/UL MAIN LAB Cells RBC 5.04 4.4 - 5.5 M/UL MAIN LAB Hemoglobin 13.8 13.5 - 16.5 GM/DL MAIN LAB Hematocrit 41.5 40 - 50 % KU MAIN LAB MCV 82.3 80 - 100 FL KU MAIN LAB MCH 27.4 26 - 34 PG KU MAIN LAB MCHC 33.3 32.0 - 36.0 G/DL MAIN LAB RDW 14.2 11 - 15 % KU MAIN LAB Platelet Count 243 150 - 400 K/UL MAIN LAB MPV 8.3 7 - 11 FL KU MAIN LAB Specimen Blood Performing Organization Address [facility]/Zipcode Ph one Number MAIN LAB [address] [place] [address] * MRI HEAD WO/W CONTRAST (11/12/2019 12:35 AM MANAGER SOUND) Specimen Impressions Performed At Left parieto-occipital necrotic [...] Interface, Radiant Results - 11/12/2019 8:35 AM MANAGER SOUND EXAM: MRI BRAIN HISTORY: Status post resection [...] on 11/12/2019 8:10 AM. Performing Organization Address [facility] one Number RAD RESULTS * POC GLUCOSE (11/11/2019 9:34 PM MANAGER SOUND) Glucose, POC 339 (H) 70 - 100 MG/DL KU MAIN LAB Specimen Performing Organization Address [facility] one Number MAIN LAB [address] [place] [address] * BASIC METABOLIC PANEL (11/11/2019 5:40 PM MANAGER SOUND) Sodium 137 137 - 147 MMOL/L KU [...] >60 >60 mL/min KU MAIN LAB Comment: Martin[place] The eGFR is not validated f or use in drug dosing adjustments. Continue to use estimated creatinine clearance per dosing reference text. Please contact the Clinical Pharmacist for questions. eGFR >60 >60 mL/min KU MAIN LAB [place] Comment: The eGFR is not validated for use in drug dosing adjustments. Continue to use estimated creatinine clearance per dosing reference text. Please contact the Clinical Pharmacist for questions. Specimen Blood Performing Organization Address [facility] one Number MAIN LAB [address] [place] [address] * POC GLUCOSE (11/11/2019 5:39 PM MANAGER SOUND) Glucose, POC 203 (H) 70 - 100 MG/DL KU MAIN LAB Specimen Performing Organization Address [facility] Ph one Number MAIN LAB [address] [place] [address] * POC GLUCOSE (11/11/2019 12:33 PM MANAGER SOUND) Glucose, POC 219 (H) 70 - 100 MG/DL KU MAIN LAB Specimen Performing Organization Address [facility] one Number MAIN LAB [address] [place] [address] * POC GLUCOSE (11/11/2019 10:08 AM MANAGER SOUND) Glucose, POC 162 (H) 70 - 100 MG/DL MAIN LAB Specimen Performing Organization Address [facility] one Number MAIN LAB [address] [place] [address] * NOTES (11/11/2019 9:33 AM MANAGER SOUND) Specimen Notes SENT 11.17.2019 REFERENCE LAB Specimen Performing Organization Address [facility] one Number REFERENCE LAB REFERENCE LAB See results for address. * SURGICAL PATHOLOGY (11/11/2019 9:24 AM MANAGER SOUND) PATHOLOGY [facility]IN [facility] [email or web address] Department of Pathology and Laboratory Medicine [address] [place] [address] Surgical Pathology Office: [phone] SURGICAL PATHOLOGY REPORT NAME: BENEDICTO RIOS SURG PATH #: [id number] MR #: [id number] SPECIMEN CLASS: [facility] BILLING #: [id number] ALT ID #: LOCATION: DISCHARGED DATE OF PROCEDURE: 11/11/2019 AGE: 54 SEX: M DATE RECEIVED: 11/11/2019 : 1965 TIME RECEIVED: 09:33 PHYSICIAN: REYES NESBITT MD DATE OF REPORT: 11/14/2019 COPY [...] status and/or prior pathology. Pursuant to the Drug Abuse Treatment Specialist Program at the [facility] Pathology Department, selected slides from this [...] material indicated in this report. +++ +++ imtiaz/11/11/2019 ############################## ############################## ############ Material Received: A: left [...] placed in cassette A1FS for permanent diagnosis. ([facility]) B. Received in formalin, labeled with the patient's name and "left parietal tumor routine" is a 5.4 x 5.2 x 2.7 cm white-easton to pink-brown portion of brain. The specimen is serially sectioned to reveal a white-easton cut surface with a focal dark red area measuring 1.5 x 1.3 x 1.1 cm. Electronic Sales And Service Technician sections of the specimen are submitted in cassettes B1-B5 (B2-B4 contain dark red focal area submitted entirely). ([facility]) [facility]/11/11/2019 Intraoperative Consultation: A1FS, smears, brain, "left parietal tumor", biopsy: High-grade glioma Note: A cytologic smear/squash (A1TP) was performed on different areas from the specimen and used together with the frozen sections (A1FS) for optimal evaluation. Frozen section performed at the [facility], [address] [place] [id number]. Sonia Frey MD If immunohistochemical stains and/or in situ hybridization are cited in this report, the performance characteristics were determined by the Department of Pathology and Laboratory Medicine of the [facility] ([employer]) in compliance with CLIA'88 [...] of Pathology and Laboratory Medicine of the [facility]. It has not been cleared or approved by the FDA. The FDA has determined that such clearance or approval is not necessary. Specimen Tissue - Brain Tissue - Brain Performing Organization Address [facility] Ph one Number MAIN LAB [address] [place] [address] * POC GLUCOSE (11/11/2019 7:19 AM MANAGER SOUND) Glucose, POC 121 (H) 70 - 100 MG/DL KU MAIN LAB Specimen Performing Organization Address [facility] one Number MAIN LAB [address] [place] [address] * POC GLUCOSE (11/11/2019 6:14 AM MANAGER SOUND) Glucose, POC 120 (H) 70 - 100 MG/DL MAIN LAB Specimen Performing Organization [facility] one Number MAIN LAB [address] [place] [address] * PLATELET P2Y12 RESPONSE (11/11/2019 4:18 AM MANAGER SOUND) Platelet P2Y12 177 KU MAIN LAB Response Specimen Performing Organization [facility] one Number MAIN LAB [address] [place] [address] * BASIC METABOLIC PANEL (11/11/2019 4:18 AM MANAGER SOUND) Sodium 139 137 - 147 MMOL/L KU MAIN LAB Potassium 4.1 3.5 - 5.1 MMOL/L MAIN LAB Chloride 105 98 - 110 MMOL/L MAIN LAB CO2 24 21 - 30 MMOL/L KU MAIN LAB Anion Gap 10 3 - 12 KU MAIN LAB Glucose 136 (H) 70 - 100 MG/DL KU MAIN LAB Blood Urea 18 7 - 25 MG/DL MAIN LAB Nitrogen Creatinine 0.75 0.4 - 1.24 MG/DL MAIN LAB Calcium 9.3 8.5 - 10.6 MG/DL KU MAIN LAB eGFR Non >60 >60 mL/min MAIN LAB Comment: [place] The eGFR is not validated f or use in drug dosing adjustments. Continue to use estimated creatinine clearance per dosing reference text. Please contact the Clinical Pharmacist for questions. eGFR >60 >60 mL/min KU MAIN LAB [place] Comment: The eGFR is not validated for use in drug dosing adjustments. Continue to use estimated creatinine clearance per dosing reference text. Please contact the Clinical Pharmacist for questions. Specimen Blood Performing Organization Address [facility]/Zipcode Ph one Number MAIN LAB [address] [place] [address] * CBC (11/11/2019 4:18 AM MANAGER SOUND) White Blood 9.6 4.5 - 11.0 K/UL MAIN LAB Cells RBC 5.72 (H) 4.4 - 5.5 M/UL MAIN LAB Hemoglobin 16.1 13.5 - 16.5 GM/DL MAIN LAB Hematocrit 46.9 40 - 50 % MAIN LAB MCV 82.0 80 - 100 FL MAIN LAB MCH 28.1 26 - 34 PG MAIN LAB MCHC 34.2 32.0 - 36.0 G/DL MAIN LAB RDW 14.6 11 - 15 % MAIN LAB Platelet Count 275 150 - 400 K/UL MAIN LAB MPV 8.3 7 - 11 FL MAIN LAB Specimen Blood Performing Organization Address [facility] one Number [facility]IN LAB [address] [place] [address] * POC GLUCOSE (11/10/2019 10:29 PM MANAGER SOUND) Glucose, POC 242 (H) 70 - 100 MG/DL MAIN LAB Specimen Performing Organization Address [facility] one Number MAIN LAB [address] [place] [address] * POC GLUCOSE (11/10/2019 6:06 PM MANAGER SOUND) Glucose, POC 220 (H) 70 - 100 MG/DL MAIN LAB Specimen Performing Organization Address [facility] one Number MAIN LAB [address] [place] [address] * POC GLUCOSE (11/10/2019 11:20 AM MANAGER SOUND) Glucose, POC 224 (H) 70 - 100 MG/DL MAIN LAB Specimen Performing Organization Address [facility] one Number MAIN LAB [address] [place] [address] * BLOOD TYPE CONFIRMATION - ORDER ONLY IF REQUESTED BY LAB (11/10/2019 9:33 AM MANAGER SOUND) ABO/RH(D) A POS MAIN LAB Specimen Performing Organization Address [facility] one Number MAIN LAB [address] [place] [address] * TYPE & CROSSMATCH (11/10/2019 9:00 AM MANAGER SOUND) Units Ordered 2 MAIN LAB Crossmatch 11/13/2019 MAIN LAB Expires Record Check 2ND TYPE REQUIRED MAIN LAB ABO/RH(D) A POS MAIN LAB Antibody Screen NEG MAIN LAB Electronic YES MAIN LAB Crossmatch Specimen Blood Performing Organization Address [facility] one Number MAIN LAB [address] [place] [address] * POC GLUCOSE (11/10/2019 6:17 AM MANAGER SOUND) Glucose, POC 147 (H) 70 - 100 MG/DL MAIN LAB Specimen Performing Organization Address [facility] Ph one Number MAIN LAB [address] [place] [address] * PLATELET P2Y12 RESPONSE (11/10/2019 6:16 AM MANAGER SOUND) Platelet P2Y12 170 MAIN LAB Response Specimen Performing Organization Address [facility] Ph one Number MAIN LAB [address] [place] [address] * BASIC METABOLIC PANEL (11/10/2019 2:47 AM MANAGER SOUND) Sodium 139 137 - 147 MMOL/L MAIN LAB Potassium 4.2 3.5 - 5.1 MMOL/L MAIN LAB Chloride 104 98 - 110 MMOL/L MAIN LAB CO2 24 21 - 30 MMOL/L KU MAIN LAB Anion Gap 11 3 - 12 MAIN LAB Glucose 143 (H) 70 - 100 MG/DL MAIN LAB Blood Urea 19 7 - 25 MG/DL MAIN LAB Nitrogen Creatinine 0.71 0.4 - 1.24 MG/DL MAIN LAB Calcium 10.0 8.5 - 10.6 MG/DL MAIN LAB eGFR Non >60 >60 mL/min MAIN LAB Comment: [place] The eGFR is not validated f or use in drug dosing adjustments. Continue to use estimated creatinine clearance per dosing reference text. Please contact the Clinical Pharmacist for questions. eGFR >60 >60 mL/min MAIN LAB [place] Comment: The eGFR is not validated for use in drug dosing adjustments. Continue to use estimated creatinine clearance per dosing reference text. Please contact the Clinical Pharmacist for questions. Specimen Blood Performing Organization Address [facility] one Number MAIN LAB [address] [place] [address] * CBC (11/10/2019 2:47 AM MANAGER SOUND) White Blood 10.6 4.5 - 11.0 K/UL MAIN LAB Cells RBC 5.79 (H) 4.4 - 5.5 M/UL MAIN LAB Hemoglobin 16.0 13.5 - 16.5 GM/DL MAIN LAB Hematocrit 46.5 40 - 50 % MAIN LAB MCV 80.3 80 - 100 FL MAIN LAB MCH 27.6 26 - 34 PG MAIN LAB MCHC 34.4 32.0 - 36.0 G/DL MAIN LAB RDW 14.4 11 - 15 % MAIN LAB Platelet Count 270 150 - 400 K/UL MAIN LAB MPV 8.0 7 - 11 FL MAIN LAB Specimen Blood Performing Organization Address [facility] one Number MAIN LAB [address] [place] [address] * POC GLUCOSE (11/09/2019 10:01 PM MANAGER SOUND) Glucose, POC 314 (H) 70 - 100 MG/DL MAIN LAB Specimen Performing Organization Address [facility] one Number MAIN LAB [address] [place] [address] * POC GLUCOSE (11/09/2019 4:23 PM MANAGER SOUND) Glucose, POC 217 (H) 70 - 100 MG/DL MAIN LAB Specimen Performing Organization Address [facility] one Number MAIN LAB [address] [place] [address] * POC GLUCOSE (11/09/2019 11:56 AM MANAGER SOUND) Glucose, POC 274 (H) 70 - 100 MG/DL MAIN LAB Specimen Performing Organization Address City/[facility] Ph one Number MAIN LAB [address] [place] [address] * POC GLUCOSE (11/09/2019 6:50 AM MANAGER SOUND) Glucose, POC 197 (H) 70 - 100 MG/DL MAIN LAB Specimen Performing Organization Address City/[facility] Ph one Number MAIN LAB [address] [place] [address] * BASIC METABOLIC PANEL (11/09/2019 4:00 AM MANAGER SOUND) [facility] Sodium 140 137 - 147 MMOL/L MAIN LAB Potassium 3.9 3.5 - 5.1 MMOL/L KU MAIN LAB Chloride 107 98 - 110 MMOL/L KU MAIN LAB CO2 22 21 - 30 MMOL/L KU MAIN LAB Anion Gap 11 3 - 12 KU MAIN LAB Glucose 212 (H) 70 - 100 MG/DL KU MAIN LAB Blood Urea 21 7 - 25 MG/DL MAIN LAB Nitrogen Creatinine 0.82 0.4 - 1.24 MG/DL KU MAIN LAB Calcium 8.9 8.5 - 10.6 MG/DL KU MAIN LAB eGFR Non >60 >60 mL/min KU MAIN LAB Comment: [place] The eGFR is not validated f or use in drug dosing adjustments. Continue to use estimated creatinine clearance per dosing reference text. Please contact the Clinical Pharmacist for questions. eGFR >60 >60 mL/min KU MAIN LAB [place] Comment: The eGFR is not validated for use in drug dosing adjustments. Continue to use estimated creatinine clearance per dosing reference text. Please contact the Clinical Pharmacist for questions. Specimen Blood Performing Organization Address City/[facility] Ph one Number MAIN LAB [address] [place] [address] * CBC (11/09/2019 4:00 AM MANAGER SOUND) [facility] White Blood 11.9 (H) 4.5 - 11.0 K/UL MAIN LAB Cells RBC 5.39 4.4 - 5.5 M/UL MAIN LAB Hemoglobin 14.9 13.5 - 16.5 GM/DL MAIN LAB Hematocrit 44.6 40 - 50 % KU MAIN LAB MCV 82.7 80 - 100 FL MAIN LAB MCH 27.7 26 - 34 PG MAIN LAB MCHC 33.5 32.0 - 36.0 G/DL MAIN LAB RDW 14.6 11 - 15 % KU MAIN LAB Platelet Count 250 150 - 400 K/UL MAIN LAB MPV 8.2 7 - 11 FL MAIN LAB Specimen Blood Performing Organization Address City/[facility]/Zipcode Ph one Number MAIN LAB [address] [place] [address] * POC GLUCOSE (11/09/2019 1:46 AM MANAGER SOUND) Glucose, POC 133 (H) 70 - 100 MG/DL KU MAIN LAB Specimen Performing Organization Address City/State/[facility] Ph one Number MAIN LAB [address] [place] [address] * POC GLUCOSE (11/08/2019 10:01 PM MANAGER SOUND) Glucose, POC 105 (H) 70 - 100 MG/DL MAIN LAB Specimen Performing Organization Address City/[facility] Ph one Number MAIN LAB [address] [place] [address] * POC GLUCOSE (11/08/2019 6:44 PM MANAGER SOUND) Glucose, POC 315 (H) 70 - 100 MG/DL MAIN LAB Specimen Performing Organization Address City/[facility] Ph one Number MAIN LAB [address] [place] [address] * POC GLUCOSE (11/08/2019 4:59 PM MANAGER SOUND) Glucose, POC 395 (H) 70 - 100 MG/DL MAIN LAB Specimen Performing Organization Address City/[facility] Ph one Number MAIN LAB [address] [place] [address] * POC GLUCOSE (11/08/2019 12:52 PM MANAGER SOUND) Glucose, POC 290 (H) 70 - 100 MG/DL MAIN LAB Specimen Performing Organization Address City/[facility] Ph one Number MAIN LAB [address] [place] [address] * POC GLUCOSE (11/08/2019 6:52 AM MANAGER SOUND) Glucose, POC 250 (H) 70 - 100 MG/DL MAIN LAB Specimen Performing Organization Address City/[facility] Ph one Number MAIN LAB [address] [place] [address] * BASIC METABOLIC PANEL (11/08/2019 4:08 AM MANAGER SOUND) Sodium 134 (L) 137 - 147 MMOL/L KU MAIN LAB Potassium 4.0 3.5 - 5.1 MMOL/L MAIN LAB Chloride 103 98 - 110 MMOL/L MAIN LAB CO2 18 (L) 21 - 30 MMOL/L MAIN LAB Anion Gap 13 (H) 3 - 12 MAIN LAB Glucose 260 (H) 70 - 100 MG/DL MAIN LAB Blood Urea 14 7 - 25 MG/DL KU MAIN LAB Nitrogen Creatinine 0.73 0.4 - 1.24 MG/DL MAIN LAB Calcium 8.8 8.5 - 10.6 MG/DL MAIN LAB eGFR Non >60 >60 mL/min MAIN LAB Comment: [place] The eGFR is not validated f or use in drug dosing adjustments. Continue to use estimated creatinine clearance per dosing reference text. Please contact the Clinical Pharmacist for questions. eGFR >60 >60 mL/min MAIN LAB [place] Comment: The eGFR is not validated for use in drug dosing adjustments. Continue to use estimated creatinine clearance per dosing reference text. Please contact the Clinical Pharmacist for questions. Specimen Blood Performing Organization Address [facility] one Number MAIN LAB [address] [place] [address] * CBC (11/08/2019 4:08 AM MANAGER SOUND) White Blood 10.9 4.5 - 11.0 K/UL MAIN LAB Cells RBC 5.67 (H) 4.4 - 5.5 M/UL MAIN LAB Hemoglobin 15.7 13.5 - 16.5 GM/DL MAIN LAB Hematocrit 46.3 40 - 50 % MAIN LAB MCV 81.7 80 - 100 FL MAIN LAB MCH 27.8 26 - 34 PG MAIN LAB MCHC 34.0 32.0 - 36.0 G/DL [facility] LAB RDW 14.5 11 - 15 % MAIN LAB Platelet Count 262 150 - 400 K/UL MAIN LAB MPV 8.1 7 - 11 FL MAIN LAB Specimen Blood Performing Organization Address [facility] one Number MAIN LAB [address] [place] [id number] * POC GLUCOSE (11/08/2019 4:05 AM MANAGER SOUND) Glucose, POC 246 (H) 70 - 100 MG/DL MAIN LAB Specimen Performing Organization Address [facility] one Number MAIN LAB [address] [place] [id number] * POC GLUCOSE (11/07/2019 9:03 PM MANAGER SOUND) Glucose, POC 273 (H) 70 - 100 MG/DL MAIN LAB Specimen Performing Organization Address [facility]/Zipcode Ph one Number MAIN LAB [address] [place] [address] * POC GLUCOSE (11/07/2019 5:40 PM MANAGER SOUND) Glucose, POC 238 (H) 70 - 100 MG/DL KU MAIN LAB Specimen Performing Organization Address [facility] Ph one Number MAIN LAB [address] [place] [address] * POC GLUCOSE (11/07/2019 12:45 PM MANAGER SOUND) Glucose, POC 341 (H) 70 - 100 MG/DL MAIN LAB Specimen Performing Organization Address City/[facility] Ph one Number MAIN LAB [address] [place] [address] * IONIZED CALCIUM (11/07/2019 12:39 PM MANAGER SOUND) Ionized Calcium 1.01 1.0 - 1.3 MMOL/L MAIN LAB Specimen Blood Performing Organization Address [facility] Ph one Number MAIN LAB [address] [place] [address] * POC GLUCOSE (11/07/2019 7:00 AM MANAGER SOUND) Glucose, POC 194 (H) 70 - 100 MG/DL MAIN LAB Specimen Performing Organization Address [facility] Ph one Number MAIN LAB [address] [place] [address] * POC GLUCOSE (11/07/2019 4:48 AM MANAGER SOUND) Glucose, POC 206 (H) 70 - 100 MG/DL MAIN LAB Specimen Performing Organization Address [facility] Ph one Number MAIN LAB [address] [place] [address] * IONIZED CALCIUM (11/07/2019 4:43 AM MANAGER SOUND) Ionized Calcium 0.93 (L) 1.0 - 1.3 MMOL/L MAIN LAB Specimen Blood Performing Organization Address [facility] Ph one Number MAIN LAB [address] [place] [address] * MAGNESIUM (11/07/2019 4:43 AM MANAGER SOUND) Magnesium 1.8 1.6 - 2.6 mg/dL MAIN LAB Specimen Blood Performing Organization Address [facility] one Number KU MAIN LAB [address] [place] [address] * PHOSPHORUS (11/07/2019 4:43 AM MANAGER SOUND) Phosphorus 3.2Comment: NOTE NEW REFERENCE 2.0 - 4.5 MG/DL KU MAIN LAB RANGES Specimen Blood Performing Organization Address [facility] one Number KU MAIN LAB [address] [place] [address] * BASIC METABOLIC PANEL (11/07/2019 4:43 AM MANAGER SOUND) Sodium 134 (L) 137 - 147 MMOL/L KU MAIN LAB Potassium 4.1 3.5 - 5.1 MMOL/L K[facility] MAIN LAB Chloride 104 98 - 110 MMOL/L K[facility] MAIN LAB CO2 18 (L) 21 - 30 MMOL/L K[facility] MAIN LAB Anion Gap 12 3 - 12 KU MAIN LAB Glucose 220 (H) 70 - 100 MG/DL K[facility] MAIN LAB Blood Urea 19 7 - 25 MG/DL K[facility] MAIN LAB Nitrogen Creatinine 0.70 0.4 - 1.24 MG/DL K[facility] MAIN LAB Calcium 8.2 (L) 8.5 - 10.6 MG/DL KU MAIN LAB eGFR Non >60 >60 mL/min KU MAIN LAB Comment: [place] The eGFR is not validated f or use in drug dosing adjustments. Continue to use estimated creatinine clearance per dosing reference text. Please contact the Clinical Pharmacist for questions. eGFR >60 >60 mL/min K[facility] MAIN LAB [place] Comment: The eGFR is not validated for use in drug dosing adjustments. Continue to use estimated creatinine clearance per dosing reference text. Please contact the Clinical Pharmacist for questions. Specimen Blood Performing Organization Address [facility] one Number KU MAIN LAB [address] [place] [address] * CBC (11/07/2019 4:43 AM MANAGER SOUND) White Blood 10.1 4.5 - 11.0 K/UL KU MAIN LAB Cells RBC 5.11 4.4 - 5.5 M/UL K[facility] MAIN LAB Hemoglobin 14.1 13.5 - 16.5 GM/DL K[facility] MAIN LAB Hematocrit 42.3 40 - 50 % K[facility] MAIN LAB MCV 82.7 80 - 100 FL KU MAIN LAB MCH 27.6 26 - 34 PG K[facility] MAIN LAB MCHC 33.3 32.0 - 36.0 G/DL MAIN LAB RDW 14.5 11 - 15 % MAIN LAB Platelet Count 208 150 - 400 K/UL MAIN LAB MPV 7.9 7 - 11 FL KU MAIN LAB Specimen Blood Performing Organization Address City/[facility] Ph one Number MAIN LAB [address] [place] [address] * POC GLUCOSE (11/06/2019 9:54 PM MANAGER SOUND) Glucose, POC 289 (H) 70 - 100 MG/DL K[facility] MAIN LAB Specimen Performing Organization Address City/[facility] Ph one Number MAIN LAB [address] [place] [address] * PLATELET P2Y12 RESPONSE (11/06/2019 8:15 PM MANAGER SOUND) Platelet P2Y12 213 MAIN LAB Response Specimen Performing Organization Address [facility] one Number MAIN LAB [address] [place] [address] * POC GLUCOSE (11/06/2019 7:20 PM MANAGER SOUND) Glucose, POC 217 (H) 70 - 100 MG/DL MAIN LAB Specimen Performing Organization Address [facility] one Number MAIN LAB [address] [place] [address] * CT ABD/PELV W CONTRAST (11/06/2019 6:38 PM MANAGER SOUND) Specimen Impressions Performed At CHEST: KU RAD [...] Interface, Radiant Results - 11/07/2019 9:[address] CHEST, ABDOMEN AND PELVIS Clinical Indication: [...] on 11/07/2019 8:02 AM. Performing Organization Address City/State/[facility] Ph one Number [facility] RAD RESULTS * CT CHEST W CONTRAST (11/06/2019 6:38 PM MANAGER SOUND) Specimen Impressions Performed At CHEST: KU RAD [...] Interface, Radiant Results - 11/07/2019 9:[address] CHEST, ABDOMEN AND PELVIS Clinical Indication: [...] Ph one Number KU RAD RESULTS * MRI HEAD WO/W CONTRAST (11/06/2019 6:20 PM MANAGER SOUND) Specimen Impressions Performed At Necrotic enhancing hemorrhagic mass in the left parieto-occipital lobe, favored [facility] RAD RESULTS to represent a high grade glioma. Less likely considerations are metastasis or lymphoma. This extends to the left late ral ventricle ependymal surface as well as the dural thickening overlying the l eft parietal convexity suspicious for involvement. Approved by Trey Padilla M.D. on 2019 9:05 AM By my electronic signature, I attest th at I have personally reviewed the images for this examination and formulated the interpretations and opinions expressed in this report Finalized by Topher Sanchez M.D. on 10/10 10:49 AM. Dictated by Trey Padilla M.D. on 11/07/2019 7:33 AM. Narrative Performed At EXAM: MRI BRAIN [facility] RAD RESULTS HISTORY: r/o mass, TECHNIQUE: Multiplanar and multisequenc e MR imaging of the head was performed. This was done both before and after the administration of MultiHancecontrast. COMPARISON: CTA head November 06, 2019 FINDINGS: Dr. Topher Sanchez M.D. has personally reviewed these images and formulated the interpretations and opinions expressed in this report. Redemonstrated is a heterogenous parenc hymal hemorrhage in the left parieto-occipital lobe. Surrounding the hemorrhage well beyond its margins, there is peripheral thick enhancement w hich extends to the left lateral ventricle ependymal surface. There is a lso associated dural thickening overlying the lesion. The enhancing parenchymal p ortion measures approximate 5.2 x 3.5 cm (series 18#[id number]). Within this enhancement , there are also punctate microhemorrhages likely reflecting necr osis. This lesion also results in masslike FLAIR hyperintensity of the le ft parietal-occipital cortex. There is mild indention of the occipita l horn and atrium of the left lateral ventricle. There is no midline shift. T he vascular flow-voids are unremarkable. Diffusion weighted imaging is not indic ative of acute or recent infarct. Procedure Note Interface, Radiant Results - 11/07/2019 10:52 AM MANAGER SOUND EXAM: MRI BRAIN HISTORY: r/o mass, TECHNIQUE: Multiplanar and multisequence MR imaging of the head was performed. This was done both before and after the administration of MultiHancecontrast. COMPARISON: CTA head November 06, 2019 FINDINGS: Dr. Topher Sanchez M.D. has personally reviewed these images and formulated the interpretations and opinions expressed in this report. Redemonstrated is a heterogenous parenchymal hemorrhage in the left parieto- occipital lobe. Surrounding the hemorrhage well beyond its margins, there is peripheral thick enhancement which extends to the left lateral ventricle ependymal surface. There is also associated dural thickening overlying the lesion. The enhancing parenchymal portion measures approximate 5.2 x 3.5 cm (series [id number]). Within this enhancement, there are also punctate microhemorrhages likely reflecting necrosis. This lesion also results in masslike FLAIR hyperintensity of the left parietal-occipital cortex. There is mild indention of the occipital horn and atrium of the left lateral ventricle. There is no midline shift. The vascular flow-voids are unremarkable. Diffusion weighted imaging is not indicative of acute or recent infarct. 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 Less likely considerations are metastasis or lymphoma. This extends to the left lateral ventricle ependymal surface as well as the dural thickening overlying the left parietal convexity suspicious for involvement. Approved by Trey Padilla M.D. on 11/07/2019 9:05 AM By my electronic signature, I attest that I have personally reviewed the images for this examination and formulated the interpretations and opinions expressed in this report Finalized by Topher Sanchez M.D. on 11/07/2019 10:49 AM. Dictated by Trey Padilla M.D. on 11/07/2019 7:33 AM. Performing Organization Address City/[facility] Ph one Number RAD RESULTS * UREA NITROGEN-URINE RANDOM (11/06/2019 1:10 PM MANAGER SOUND) Urea Nitrogen 811 MG/DL MAIN LAB Specimen Urine - Urine Performing Organization Address [facility] Ph one Number MAIN LAB [address] [place] [address] * CREATININE-URINE RANDOM (11/06/2019 1:10 PM MANAGER SOUND) Creatinine, 178 MG/DL MAIN LAB Random Specimen Urine - Urine Performing Organization Address [facility] Ph one Number MAIN LAB [address] [place] [address] * OSMOLALITY-URINE RANDOM (11/06/2019 1:10 PM MANAGER SOUND) Pathologist [facility] Osmolality-Urin 985 50 - 1,400 MOS/KG MAIN LAB e Specimen Urine - Urine Performing Organization Address [facility] one Number MAIN LAB [address] [place] [address] * SODIUM-URINE RANDOM (11/06/2019 1:10 PM MANAGER SOUND) Pathologist [facility] Sodium, Random 54 MMOL/L MAIN LAB Specimen Urine - Urine Performing Organization Address [facility] Ph one Number MAIN LAB [address] [place] [address] * POC GLUCOSE (11/06/2019 12:22 PM MANAGER SOUND) Pathologist [facility] Glucose, POC 284 (H) 70 - 100 MG/DL MAIN LAB Specimen Performing Organization Address [facility] one Number MAIN LAB [address] [place] [address] * OSMOLALITY (11/06/2019 11:30 AM MANAGER SOUND) [facility] Osmolality 297 280 - 307 MOSMOL/KG [facility] LA B Specimen Blood Performing Organization Address [facility] one Number [facility] LAB [address] [place] [address] * 2-D + DOPPLER ECHOCARDIOGRAM (11/06/2019 9:56 AM MANAGER SOUND) [facility] IVS 0.96 0.6 - 1.0 cm OTHER [...] CV ECHO PV FARSHAD Patiño OTHER OUTSIDE PRINT PRESS OPERATOR LAB FS 23.54 28 - 44 % OTHER OUTSIDE LAB EF 40.02 % OTHER OUTSIDE LAB LV mass 182.62 88 - 224 g OTHER OUTSIDE LAB RWT 0.43 <=0.42 OTHER OUTSIDE LAB E/A ratio 1.16 OTHER OUTSIDE LAB Lateral E/E' 7.73 OTHER OUTSIDE ratio LAB Left Atrium 16.29 16 - 34 OTHER OUTSIDE Index LAB Cardiology Siemens [id number] OTHER OUTSIDE Ultrasound LAB Machine Left Ventricle [...] Ph one Number OTHER OUTSIDE LAB * POC GLUCOSE (11/06/2019 7:43 AM MANAGER SOUND) Glucose, POC 240 (H) 70 - 100 MG/DL MAIN LAB Specimen Performing Organization Address City/State/Zipcode Ph one Number MAIN LAB [address] [place] [address] * CTA HEAD WO/W CONTR+POST PRO (11/06/2019 5:57 AM MANAGER SOUND) Specimen Impressions Performed At 1. Patent intracranial [...] Interface, Radiant Results - 11/06/2019 6:40 AM MANAGER SOUND EXAM: CTA HEAD HISTORY: 54-year-old male, intracranial [...] on 11/06/2019 5:54 AM. Performing Organization Address [facility] Ph one Number RAD RESULTS * PHOSPHORUS (11/06/2019 4:31 AM MANAGER SOUND) Pathologist [facility] Phosphorus 3.7Comment: NOTE NEW REFERENCE 2.0 - 4.5 MG/DL MAIN LAB RANGES Specimen Blood Performing Organization Address [facility] Ph one Number MAIN LAB [address] [place] [address] * MAGNESIUM (11/06/2019 4:31 AM MANAGER SOUND) Magnesium 1.6 1.6 - 2.6 mg/dL MAIN LAB Specimen Blood Performing Organization Address [facility] Ph one Number MAIN LAB [address] [place] [address] * IONIZED CALCIUM (11/06/2019 4:31 AM MANAGER SOUND) Ionized Calcium 1.05 1.0 - 1.3 MMOL/L MAIN LAB Specimen Blood Performing Organization Address [facility] Ph one Number MAIN LAB [address] [place] [address] * COMPREHENSIVE METABOLIC PANEL (11/06/2019 4:31 AM MANAGER SOUND) Sodium 134 (L) 137 - 147 MMOL/L [...] Non The eGFR is not validated for MAIN LAB use in drug dosing [place] adjustments. Continue to use estimated creatinine clearance per dosing reference text. Please contact the Clinical Pharmacist for questions. eGFR >60 >60 mL/min KU MAIN LAB [place] eGFR The eGFR is not validated for KU MAIN LAB [place] use in drug dosing adjustments. Continue to use estimated creatinine clearance per dosing reference text. Please contact the Clinical Pharmacist for questions. Specimen Blood Performing Organization Address [facility] one Number KU MAIN LAB [address] [place] [address] * HEMOGLOBIN A1C (11/06/2019 4:31 AM MANAGER SOUND) Hemoglobin A1C 11.8 (H) 4.0 - 6.0 % KU MAIN LAB Comment: The ADA recommends that most patients with type 1 and type 2 diabetes maintain an A1c level <7%. Specimen Blood Performing Organization Address [facility] Ph one Number MAIN LAB [address] [place] [address] * LIPID PROFILE (11/06/2019 4:31 AM MANAGER SOUND) Cholesterol 125 <200 MG/DL KU MAIN LAB [...] 130 mg/dL. Specimen Blood Performing Organization Address City/[facility] Ph one Number MAIN LAB [address] [place] [address] * TROPONIN-I (11/06/2019 4:31 AM MANAGER SOUND) Pathologist [facility] Troponin-I 0.00 0.0 - 0.05 NG/ML MAIN LAB Specimen Blood Performing Organization Address [facility] Ph one Number MAIN LAB [address] [place] [address] * PTT (APTT) (11/06/2019 4:31 AM MANAGER SOUND) APTT 28.4 24.0 - 36.5 SEC MAIN LAB Specimen Blood Performing Organization Address [facility] Ph one Number MAIN LAB [address] [place] [address] * PROTIME INR (PT) (11/06/2019 4:31 AM MANAGER SOUND) INR 1.1 0.8 - 1.2 MAIN LAB Specimen Blood Performing Organization Address [facility] Ph one Number MAIN LAB [address] [place] [address] * CBC AND DIFF (11/06/2019 4:31 AM MANAGER SOUND) White Blood 15.7 (H) 4.5 - 11.0 K/UL MAIN LAB Cells RBC 5.55 (H) 4.4 - 5.5 M/UL MAIN LAB Hemoglobin 15.5 13.5 - 16.5 GM/DL MAIN LAB Hematocrit 45.7 40 - 50 % MAIN LAB MCV 82.3 80 - 100 FL MAIN LAB MCH 28.0 26 - 34 [...] Basophil Count Specimen Blood Performing Organization Address City/State/Zipcode Ph one Number KU MAIN LAB [address] [place] [address] * ECG-SCAN (11/06/2019 12:00 AM MANAGER SOUND) Narrative Performed At This result has an attachment that is n ot available. Ordered by an unspecified provider. * CT HEAD EXTERNAL IMAGING (11/05/2019 12:05 AM MANAGER SOUND) Specimen Narrative Performed At This order has been auto finalized and does not contain a result. * GENERAL RAD CHEST EXTERNAL IMAGING (11/05/2019 12:00 AM MANAGER SOUND) Specimen Narrative Performed At This order has been auto finalized and does not contain a result. documented in this encounter Visit Diagnoses Diagnosis Brain tumor (HCC) - Primary Neoplasm of unspecified nature of brain Nontraumatic hemorrhage of left cerebra l hemisphere (HCC) Brain tumor, glioma (HCC) Malignant neoplasm of brain, unspecifie d site Vasogenic edema (HCC) Hypertension, essential Unspecified essential hypertension Coronary artery disease involving nativ e coronary artery of [place] heart without angina pectoris Other headache syndrome Hyperlipidemia, mixed Mixed hyperlipidemia Diabetes mellitus (HCC) Type II or unspecified type diabetes me llitus without mention of complication, not stated as uncontrolled Current smoker Tobacco use disorder COPD (chronic obstructive pulmonary dis ease) (HCC) Chronic airway obstruction, not elsewhe re classified Chronic atrial fibrillation (HCC) Atrial fibrillation documented in this encounter Administered Medications Action Date Dose Rate Site Medication Order MAR Action 11/07/2019 4:48 AM MANAGER SOUND 650 mg acetaminophen (TYLENOL) oral solution Given 650 mg 650 mg, Per NG tube, EVERY 4 HOURS PRN , Starting Rola 11/06/19 at 0402, Until Sun11/07/19 at 0526, Temp > ..., 38.3 C, TOTAL ACETAMINOPHEN DOSE NOT TO EXCEED 4GM DAILY, 650 mg Given 11/06/2019 7:20 PM MANAGER SOUND 650 mg Given 11/06/2019 8:51 AM MANAGER SOUND 11/12/2019 3:52 PM MANAGER SOUND 1,000 mg acetaminophen (TYLENOL) tablet 1,000 mg Given 1,000 mg, Oral, EVERY 6 HOURS PRN, Starting 11/11/19 at 1630, Until Rola 11/13/19 at 1408, Pain non-opioid: may be used alone or in combination with opioi d analgesia, Temp > ..., 38.3C, TOTAL ACETAMINOPHEN DOSE NOT TO EXCEED 4GM DAILY, 1,000 mg Given 11/12/2019 9:00 AM MANAGER SOUND 1,000 mg Given 11/12/2019 1:14 AM MANAGER SOUND 11/08/2019 8:54 AM MANAGER SOUND 650 mg acetaminophen (TYLENOL) tablet 650 mg Given 650 mg, Oral, EVERY 4 HOURS PRN, Starting Sun11/07/19 at 0525, Until 11/08/19 at 0859, Temp > ..., 38.3C, TOTA L ACETAMINOPHEN DOSE NOT TO EXCEED 4GM DAILY, 650 mg Given 11/08/2019 3:59 AM MANAGER SOUND 650 mg Given 11/07/2019 8:59 PM MANAGER SOUND 11/11/2019 1:27 PM MANAGER SOUND 650 mg acetaminophen (TYLENOL) tablet 650 mg Given 650 mg, Oral, EVERY 4 HOURS PRN, Starting 11/08/19 at 0858, Until Sun11/11/19 at 1628, Pain non-opioid: may be used alone or in combination with opioi d analgesia, Temp > ..., 38.3C, TOTAL ACETAMINOPHEN DOSE NOT TO EXCEED 4GM DAILY, 650 mg Given 11/11/2019 6:11 AM MANAGER SOUND 650 mg Given 11/10/2019 4:13 PM MANAGER SOUND albuterol sulfate (PROAIR HFA) inhaler 2 puff 2 puff, Inhalation, RT EVERY 4 HOURS PRN, Starting Sun11/12/19 at 1755, Until Rola 11/13/19 at 1408, RT PROTOCOL, When administered by RT, will be per RT policy., 11/10/2019 6:04 PM MANAGER SOUND 30 mL aluminum/magnesium hydroxide (MAALOX) Given oral suspension 30 mL 30 mL, Oral, NEEDED, Starting 11/10/19 at 1801, Until Rola 11/13/19 at 1408, Indigestion/Heartburn 11/13/2019 9:35 AM MANAGER SOUND 2.5 mg amLODIPine (NORVASC) tablet 2.5 mg Given 2.5 mg, Oral, DAILY, First dose on Rola 11/06/19 at 0945, Until Discontinued, NURSING: Please educate patient and document: Do not give with grapefruit juice., 2.5 mg Given 11/12/2019 8:23 AM MANAGER SOUND 2.5 mg Given 11/10/2019 8:54 AM MANAGER SOUND 11/06/2019 3:37 PM MANAGER SOUND 81 mg aspirin chewable tablet 81 mg Given 81 mg, Oral, DAILY, First dose on Rola 11/06/19 at 1530, Until Discontinued 11/13/2019 9:34 AM MANAGER SOUND 80 mg atorvastatin (LIPITOR) tablet 80 mg Given 80 mg, Oral, DAILY, First dose on Rola 11/06/19 at 0945, Until Discontinued 80 mg Given 11/12/2019 8:23 AM MANAGER SOUND 80 mg Given 11/10/2019 8:54 AM MANAGER SOUND 11/13/2019 5:20 AM MANAGER SOUND 2 puffs budesonide-formoteroL (SYMBICORT HFA) Given 160-4.5 mcg/actuation inhalation 2 puff 2 puff, Inhalation, RT TWICE DAILY, First dose on Sun11/06/19 at 0845, Unti l Discontinued, When administered by RT, will be per RT policy., 2 puffs Given 11/12/2019 5:41 PM MANAGER SOUND 2 puffs Given 11/12/2019 6:11 AM MANAGER SOUND 11/09/2019 10:05 PM MANAGER SOUND 1,000 mg calcium carbonate (TUMS) chew tablet Given 1,000 mg 1,000 mg, Oral, ONCE, 1 dose, Sun 0 at 2245, Each tab delivers 200mg elemental calcium., 11/07/2019 7:07 AM MANAGER SOUND 1 g 110 mL/hr calcium gluconate 1 g in sodium chloride Given 0.9% (NS) 110 mL IVPB (MB+) 1 g, Intravenous, 110 mL, Administer over 1 Hours, NEEDED (DISEASE AND INSECT CONTROL BOSS FROM RX), Starting Sun11/06/19 at 0943, Unti l Sun11/07/19 at 1131, Other..., For calcium replacement, see admin instructions, For ionized calcium < 1.0 mg/dl, administer calcium gluconate 1g IVPB to run over 1 hour. Recheck ionized calcium level 4 hours after completion of infusion. Notify physicia n if ionized calcium < 1.0 mg/dL. Each 1 gm delivers 4.6 mEq calcium, 11/12/2019 8:22 AM MANAGER SOUND 2 g ceFAZolin (ANCEF) IVP 2 g Given 2 g, Intravenous, EVERY 8 HOURS, 3 doses, First dose on Sun11/11/19 at 1600 , Last dose on Sun11/12/19 at 0800, IV PUS H -- RECONSTITUTE each 1 g vial by adding 10 mL 0.9% NACL, 2 g Given 11/12/2019 1:14 AM MANAGER SOUND 2 g Given 11/11/2019 3:27 PM MANAGER SOUND 11/13/2019 9:35 AM MANAGER SOUND 4 mg dexAMETHasone (DECADRON) tablet 4 mg Given 4 mg, Oral, EVERY 6 HOURS, First dose on Sun11/07/19 at 0700, Until Discontinued 4 mg Given 11/13/2019 3:04 AM MANAGER SOUND 4 mg Given 11/12/2019 9:03 PM MANAGER SOUND 11/13/2019 9:35 AM MANAGER SOUND 100 mg docusate (COLACE) capsule 100 mg Given 100 mg, Oral, TWICE DAILY, First dose o n Sun11/06/19 at 0900, Until Discontinued , Hold for loose stools, 100 mg Given 11/12/2019 9:04 PM MANAGER SOUND 100 mg Given 11/12/2019 8:23 AM MANAGER SOUND 11/12/2019 12:22 AM MANAGER SOUND 50 mcg fentaNYL citrate PF (SUBLIMAZE) Given injection 25-50 mcg 25-50 mcg, Intravenous, EVERY 1 HOUR PRN, Starting Sun11/11/19 at 1354, Until Sun11/12/19 at 1119, Pain Injectable 50 mcg Given 11/11/2019 7:03 PM MANAGER SOUND 50 mcg Given 11/11/2019 5:33 PM MANAGER SOUND fentaNYL citrate PF (SUBLIMAZE) injection 25-50 mcg 25-50 mcg, Intravenous, EVERY 4 HOURS PRN, Starting Sun11/12/19 at 1115, Until Rola 11/13/19 at 1408, Pain Injectable 11/06/2019 6:05 PM MANAGER SOUND 18 mL gadobenate dimeglumine (MULTIHANCE) Given injection 18 mL 18 mL, Intravenous, ONCE, 1 dose, Rola 11/06/19 at 1815, NOTE: This is a HIGH ALERT Medication., 11/12/2019 12:30 AM MANAGER SOUND 18 mL gadobenate dimeglumine (MULTIHANCE) Given injection 18 mL 18 mL, Intravenous, ONCE, 1 dose, 11/12/19 at 0030, NOTE: This is a HIGH ALERT Medication., 11/10/2019 10:33 PM MANAGER SOUND 5,000 Units Abdomina l Tissue heparin (porcine) PF syringe 5,000 Units Given 5,000 Units, Subcutaneous, EVERY 8 HOURS, 10 doses, First dose on Sun11/07/19 at 2200, Last dose on Sun 0 at 2200, NOTE: This is a HIGH ALERT Medication., 5,000 Units Abdominal Tissue Given 11/10/2019 2:35 PM MANAGER SOUND 5,000 Units Arm, Right Given 11/10/2019 6:18 AM MANAGER SOUND 11/08/2019 4:59 PM MANAGER SOUND 10 Units Arm, Rig ht insulin aspart U-100 (NOVOLOG FLEXPEN) Given injection PEN 0-12 Units 0-12 Units, Subcutaneous, FIVE TIMES DAILY 2200, First dose (after last modification) on Rola 11/06/19 at 0800, Until Discontinued, -POC glucose 181-220mg/dL at , administer 2 units insulin, at 22, 03* administer 0 units. -POC glucose 221-260mg/dL at , , administer 4 units insulin, at 22, 03* administer 2 units. -POC glucos e 261-300mg/dL at , , administer 6 units insulin, at 22, 03* administer 4 units. -POC glucose 301-350mg/dL at , , administer 8 units insulin, at 22, 03* administer 6 units. -POC glucos e 351-400mg/dL at , , administer 1 0 units insulin, at 22, 03* administer 8 units. -POC glucose >400mg/dL at , , 17 administer 12 units insulin, at 22, 03* administer 10 units. *only if ordered 5x's daily For POCT glucose >350mg/dL give correction bolus and recheck POCT glucose in 2 hours. If POC T glucose at 2 hours >300mg/dL call physician for further orders. For patients who are not eating meals, continue to administer the appropriate correction factor. NOTE: This is a HIGH ALERT Medication., Dispense pens manually with initial order and then upon request. DO NOT uncheck "Do not dispense", 6 Units Arm, Right Given 11/08/2019 12:52 PM MANAGER SOUND 4 Units Abdomen:LLQ Given 11/08/2019 6:52 AM MANAGER SOUND 11/13/2019 8:04 AM MANAGER SOUND 4 Units Arm, Rig ht insulin aspart U-100 (NOVOLOG FLEXPEN) Given injection PEN 0-24 Units 0-24 Units, Subcutaneous, BEFORE MEALS AND 2200, First dose on 11/08/19 at 1900, Until Discontinued, -POC glucose 181-220mg/dL at , , administer 4 units insulin, at 22, 03* administer 0 units. -POC glucose 221-260mg/dL at , , administer 8 units insulin, at 22, 03* administer 4 units. -POC glucos e 261-300mg/dL at , , administer 1 2 units insulin, at 22, 03* administer 8 units. -POC glucose 301-350mg/dL at , , administer 16 units insulin, at 22, 03* administer 12 units. -POC glucose 351-400mg/dL at , , administer 20 units insulin, at 22, 03* administer 16 units. -POC glucose >400mg/dL at , , administer 24 units insulin, at 22, 03* administer 20 units. *only if ordered 5x's daily Fo r POCT glucose >350mg/dL give correction bolus and recheck POCT glucose in 2 hours. If POCT glucose at 2 hours >300mg/dL call physician for further orders. For patients who are not eatin g meals, continue to administer the appropriate correction factor. NOTE: This is a HIGH ALERT Medication., Dispense pens manually with initial order and then upon request. DO NOT uncheck "Do not dispense", 4 Units Arm, Left Given 11/12/2019 10:08 PM MANAGER SOUND 8 Units Arm, Right Given 11/12/2019 6:16 PM MANAGER SOUND 11/07/2019 9:23 AM MANAGER SOUND 20 Units Abdomina l Tissue insulin glargine (LANTUS SOLOSTAR) Given injection PEN 20 Units 20 Units, Subcutaneous, ONCE, 1 dose, 11/07/19 at 0945, -- Do not mix with other insulins -- NOTE: This is a HIGH ALERT Medication., Dispense pens manually with initial order and then upon request. DO NOT uncheck "Do not dispense", 11/12/2019 9:12 PM MANAGER SOUND 40 Units Abdomina l Tissue insulin glargine (LANTUS SOLOSTAR) Given injection PEN 40 Units 40 Units, Subcutaneous, AT BEDTIME DAILY, First dose on 11/08/19 at 2100 , Until Discontinued, -- Do not mix with other insulins -- NOTE: This is a HIGH ALERT Medication., 40 Units Abdominal Tissue Given 11/11/2019 9:34 PM MANAGER SOUND 40 Units Abdominal Tissue Given 11/10/2019 8:30 PM MANAGER SOUND 11/06/2019 6:45 PM MANAGER SOUND 100 mL iohexol (OMNIPAQUE-350) 350 mg/mL Given injection 100 mL 100 mL, Intravenous, ONCE, 1 dose, Rola 11/06/19 at 1845, NOTE: This is a HIGH ALERT Medication., 11/06/2019 6:00 AM MANAGER SOUND 60 mL 4 mL/hr iohexol (OMNIPAQUE-350) 350 mg/mL Given injection 60 mL 60 mL, Intravenous, at 4 mL/hr, ONCE, 1 dose, Rola 11/06/19 at 0600, NOTE: This i s a HIGH ALERT Medication., 11/11/2019 10:44 PM MANAGER SOUND 10 mg labetalol (NORMODYNE) injection 10 mg Given 10 mg, Intravenous, EVERY 6 HOURS PRN, Starting Sun11/11/19 at 1200, Until Sun11/12/19 at 1119, Systolic Blood Pressure..., for SBP > 140, Hold for heart rate < 60 bpm, 11/11/2019 10:47 PM MANAGER SOUND 500 mg levETIRAcetam (KEPPRA) 500 mg/NS 100 mL Given - New IVPB (premade) Bag 500 mg, 100 mL, Administer over 15 Minutes, Intravenous, TWICE DAILY, Firs t dose on Sun11/11/19 at 1300, Until Discontinued 11/13/2019 9:34 AM MANAGER SOUND 500 mg levETIRAcetam (KEPPRA) tablet 500 mg Given 500 mg, Oral, TWICE DAILY, First dose o n 11/12/19 at 0900, Until Discontinued 500 mg Given 11/12/2019 9:04 PM MANAGER SOUND 500 mg Given 11/12/2019 8:59 AM MANAGER SOUND 11/12/2019 9:12 PM MANAGER SOUND 1.8 mg Abdomina l Tissue liraglutide (VICTOZA) injection pen 1.8 Given mg 1.8 mg, Subcutaneous, DAILY, First dose on 11/08/19 at 2100, Until Discontinued, NOTE: This is a HIGH ALER T Medication., 1.8 mg Abdominal Tissue Given 11/11/2019 9:30 PM MANAGER SOUND 1.8 mg Abdominal Tissue Given 11/10/2019 8:31 PM MANAGER SOUND 11/06/2019 8:16 AM MANAGER SOUND 535 mg magnesium chloride (MAG DELAY) tablet Given 535 mg 535 mg, Oral, NEEDED, Starting Sun11/06/19 at 0709, Until Sun11/06/19 at 0844, Other..., magnesium replacement (see admin. instr.), Do not use if Cr>2 , ESRD, or Tikosyn/Sotalol initiation *For Mag level 1.5-1.9 -> give 1 tablet of PO Extended release Mag OR give 1 g of IV Mag Sulfate over one akua r if patient has diarrhea. *For Ma g level 1.1-1.4 -> give 1 g of IV Mag Sulfate over 1 hour for 2 doses. *For Mag level <1.1 -> Notify physician (routine), THEN give 1 g of IV Mag Sulfate over one hour for 4 doses. Repeat Mag level 1 hour after last IV dose. If Repeat Mag level is <1.4 -> Notify physician (LUIS FELIPE) and replace as above, 11/07/2019 8:50 AM MANAGER SOUND 1 g 100 mL/hr magnesium sulfate 1 g/D5W 100 mL IVPB Given - New 1 g, Intravenous, 100 mL, Administer Bag over 1 Hours, NEEDED, Starting Rola 11/06/19 at 0943, Until Sun11/07/19 at 1131, Other..., magnesium replacement (see Admin Instructions), If urine output < 30 mL/hr or SCr >2 mg/dL, [facility] with physician prior to giving magnesiu m replacement. - For Serum Magnesium > 2.1 mg/dL, No replacement necessary. - For Serum Magnesium 1.8 - 2.0 mg/dL, give Magnesium Sulfate 2 grams IV over 2 hours. - For Serum Magnesium 1.6 - 1.7 mg/dL, give Magnesium Sulfate 3 grams I V over 3 hours. - For Serum Magnesium 1. 3 - 1.5 mg/dL, give Magnesium Sulfate 4 grams IV over 4 hours. - For Serum Magnesium < = 1.2 mg/dL, give Magnesium Sulfate 6 grams IV over 6 hours AND notify physician. Recheck serum magnesium level 2 hours after completio n of appropriate replacement dose. Repeat this standing order x 1. Notify physician if serum magnesium < 2.1 mg/d L after two replacements. Infuse each 1gm Magnesium sulfate over 1 hour. Each 1 gm delivers 8.1 mEq Magnesium., 1 g 100 mL/hr Given - New Bag 11/07/2019 7:07 AM MANAGER SOUND 11/13/2019 9:35 AM MANAGER SOUND 25 mg metoprolol tartrate (LOPRESSOR) tablet Given 25 mg 25 mg, Oral, TWICE DAILY, First dose on Sun11/06/19 at 0845, Until Discontinued , Hold for heart rate < 60 bpm or MAP <65mmHg - please notify provider if hel d for ANY reason, 25 mg Given 11/12/2019 9:03 PM MANAGER SOUND 25 mg Given 11/12/2019 8:23 AM MANAGER SOUND 11/11/2019 7:55 AM MANAGER SOUND 25 mg metoprolol tartrate (LOPRESSOR) tablet Given 25 mg 25 mg, Oral, ONCE, 1 dose, 11/11/19 a t 0845, Hold for HR <60, 11/09/2019 8:30 AM MANAGER SOUND 10 mL milk of magnesia (CONC) oral suspension Given 10 mL 10 mL, Oral, DAILY, First dose on Sun11/06/19 at 0900, Until Discontinued, Ma y hold if BM within 24 hours of dose. 10 mL CONC = 30 mL MOM, 11/13/2019 9:38 AM MANAGER SOUND 1 patch Arm, Rig ht nicotine (NICODERM CQ STEP 2) 14 mg/day Patch/Topica patch 1 patch l Applied 1 patch, Transdermal, Administer over 2 4 Hours, DAILY, First dose on Sun11/08/19 at 0900, Until Discontinued 1 patch Arm, Left Patch/Topical Applied 11/12/2019 8:22 AM MANAGER SOUND 1 patch Deltoid, Right Patch/Topical Applied 11/10/2019 8:54 AM MANAGER SOUND 11/11/2019 9:43 PM MANAGER SOUND 4 mg nicotine polacrilex (NICORETTE) gum 4 mg Given 4 mg, Buccal, EVERY 2 HOURS PRN, Starting Sun11/08/19 at 0859, Until Sun11/13/19 at 1408, Cravings 11/06/2019 4:46 AM MANAGER SOUND 60 mg niMODipine (NIMOTOP) capsule 60 mg Given 60 mg, Oral, EVERY 4 HOURS, 126 doses, First dose on Sun11/06/19 at 0415, Last dose on Sun11/27/19 at 0000, Hold for SBP <100 mmHg, 11/11/2019 12:28 PM MANAGER SOUND 10 mg oxyCODONE (ROXICODONE) tablet 5-10 mg Given 5-10 mg, Oral, EVERY 4 HOURS PRN, Starting Sun11/07/19 at 1438, Until Sun11/11/19 at 1628, Pain PO 10 mg Given 11/10/2019 8:30 PM MANAGER SOUND 10 mg Given 11/10/2019 10:33 AM MANAGER SOUND 11/13/2019 9:35 AM MANAGER SOUND 15 mg oxyCODONE (ROXICODONE) tablet 5-15 mg Given 5-15 mg, Oral, EVERY 3 HOURS PRN, Starting Sun11/11/19 at 1630, Until Sun11/13/19 at 1408, Pain PO 15 mg Given 11/13/2019 1:35 AM MANAGER SOUND 15 mg Given 11/12/2019 9:09 PM MANAGER SOUND 11/12/2019 9:04 PM MANAGER SOUND [address] (PROTONIX) tablet 40 mg Given 40 mg, Oral, DAILY, First dose on Sun11/10/19 at 0315, Until Discontinued, Do not crush or chew tablet., 40 mg Given 11/11/2019 9:27 PM MANAGER SOUND 40 mg Given 11/10/2019 8:30 PM MANAGER SOUND 11/13/2019 9:35 AM MANAGER SOUND 1 tablet senna/docusate (SENOKOT-S) tablet 1 Given tablet 1 tablet, Oral, TWICE DAILY, First dose on 11/06/20 at 0900, Until Discontinued, Hold for loose stools. If patient unable to take tablet, give 10 mL of senna/docusate (SENOKOT-S) solution. Send inbasket message to pharmacy., If patient unable to take tablet, give 10 mL of senna/docusate (SENOKOT-S) solution., 1 tablet Given 11/12/2019 9:04 PM MANAGER SOUND 1 tablet Given 11/12/2019 8:23 AM MANAGER SOUND 11/06/2019 8:03 AM MANAGER SOUND 50 mL/hr sodium chloride 0.9 % infusion Given - New 1,000 mL, Intravenous, at 50 mL/hr, Bag CONTINUOUS, Starting Rola 11/06/19 at 0715, Until Rola 11/06/19 at 2230 11/11/2019 7:25 AM MANAGER SOUND 1,000 mL 20 mL/hr sodium chloride 0.9 % infusion Given - New 1,000 mL, 1,000 mL, Intravenous, at 20 Bag mL/hr, ONCE, 1 dose, 11/11/19 at 0700 , Pre-Op 11/06/2019 6:00 AM MANAGER SOUND 50 mL 4 mL/hr sodium chloride PF 0.9% injection 50 mL Given 50 mL, Intravenous, at 4 mL/hr, ONCE, 1 dose, Rola 11/06/19 at 0600, DO NOT SEND this medication unless it is requested. This med is usually available in floor stock., Intra-procedure (IR) 11/06/2019 6:45 PM MANAGER SOUND 50 mL sodium chloride PF 0.9% injection 50 mL Given 50 mL, Intravenous, ONCE, 1 dose, Rola 11/06/19 at 1845, Intra-procedure (IR) 11/13/2019 9:38 AM MANAGER SOUND Arm, Rig ht Verification of Patch Placement and Patch/Topica Integrity - Nicotine 14 MG/24HR l Verified TWICE DAILY, First dose on 11/08/19 a t 0900, Until Discontinued, Patch checks are required every shift to ensure the patch is still intact and in place. Please verify patch check findings caitlyn pace this DEC entry., Arm, Left Patch/Topical Verified 11/12/2019 9:14 PM MANAGER SOUND 1 patch Arm, Left Patch/Topical Verified 11/12/2019 8:24 AM MANAGER SOUND documented in this encounter
--- OUTSIDE RECORDS SUMMARY | 2019-11-26 07:03 | XMS REPORT | Encounter Summary ---
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 MA,CCC-SUPERVISOR BINDERY - 11/06/2019 8:55 AM COMMUNICATIONS AGENT SPEECH-LANGUAGE PATHOLOGY CLINICAL SWALLOW ASSESSMENT EVALUATION SUMMARY [...] swallow eval. Disccussed results in person w/ AGENT TICKETING GATE and RN. Recommendations* -initiate PO diet: Regular solids, Thin Liquids -medications by mouth as tolerated -Assist pt w/ ordering food due to difficulty w/ aphasia- verbally present [facility] es and allow pt time to respond [...] y.o. male who is t ransferred to [facility] for diagnosis of new brain mass with hemorrhagic component. Haylee woo reports he was in his usual state [...] Demonstration Goal Formulation: With Patient Therapist:Tammie Renee MA, L/CCC-SUPERVISOR BINDERY Voalte: [id number] Date:11/06/2019 UNICATIONS AGENT * Marjan Yang RN - 11/06/2019 4:57 AM COMMUNICATIONS AGENT Patient arrived to room # (64073) via bed accompanied by transport. Patient joseph [...] See Doc Flowsheet for additional wound details. UNICATIONS AGENT documented in this encounter H&P Notes * Reyes Nesbitt MD - 11/11/2019 7:51 AM COMMUNICATIONS AGENT I have seen and examined the patient. There have been no interval changes from t he H&P. Pt denies recent infection, fevers, chills, cp, or soa. Consent signed. We will proceed with Left parietal craniotomy for tumor resection. Reyes Nesbitt MD UNICATIONS AGENT * Sara Le, MSN,STOCK SELECTOR - 11/06/2019 5:23 AM COMMUNICATIONS AGENT Neuro Critical Care History and Physical or Consult Note Benedicto Rios Admission Date: 11/06/2019 LOS: 0 days Full Code ASSESSMENT/PLAN Patient Active Problem List Diagnosis Date Noted Left-sided nontraumatic intracerebral hemorrhage (HCC) 11/06/2019 Vasogenic edema (HCC) 11/06/2019 Other headache syndrome 11/06/2019 Benedicto Rios is a 54 y.o. male with history of HTN, HLD, NE with PCI/stending x5 on plavix, chronic atrial [...] HLD; CAD with PCI x5 - Hold RAVELER plavix Chronic Atrial Fibrillation - Hold RAVELER eliquis Respiratory: Current smoker - cigarettes and pipe COPD Stable on RA - continue RAVELER symbicort and PRN albuterol - PaO2 goal [...] - POC ACHS with [facility] - Hold RAVELER Victoza - Hold RAVELER lantus, pending surgical plan - Blood glucose [...] male with history of HTN, H LD, NE with PCI/stending x5 on plavix, chronic atrial [...] History: Diagnosis Date CAD (coronary artery disease), [place] coronary artery Chronic atrial fibrillation (HCC) COPD [...] 599) Temp: 37.4 C (99.3 F) (11/06 0402) Pulse: 73 (11/06 599) Respirations: 15 PER MINUTE (11/06 599) SpO2: 96 % (01/30 0600) Height: 175.3 cm (69.02") (11/06 401) Weight: [...] (194 lb 0.1 oz), SpO2 96 %. Fer coma score: E: 4 - [...] ca re with consulted teams Sara Le, MSN,STOCK SELECTOR Date: 11/06/[phone] UNICATIONS AGENT documented in this encounter Consult Notes * Ron Cardoza MD - 11/11/2019 6:49 PM COMMUNICATIONS AGENT Neuro Critical Care Consult Benedicto Rios Admission Date: 11/06/2019 LOS: 5 days Full Code ATTESTATION This note is associated with the NEICU team note dated today. Date of Service: 11/11/2019 Medical History: Diagnosis Date Brain mass left parietal CAD (coronary artery disease), [place] coronary artery Chronic atrial fibrillation (HCC) COPD [...] atrial fibrillation (HCC) CAD (coronary artery disease), [place] coronary artery I spent 35 minutes (excluding [...] risk for life threatening deterioration necessitating complex [facility] decision making and ongoing provision of ICU care. Staff name: Ron Cardoza MD Date: 11/11/2019 ASSESSMENT/PLAN Patient Active Problem List Diagnosis Date Noted Hypertension, essential Hyperlipidemia, mixed Diabetes mellitus (HCC) Current smoker COPD (chronic obstructive pulmonary disease) (HCC) Chronic atrial fibrillation (HCC) CAD (coronary artery disease), [place] coronary artery Brain tumor (HCC) 11/10/2019 Left-sided nontraumatic intracerebral hemorrhage (HCC) 11/06/2019 Vasogenic edema (HCC) 11/06/2019 Other headache syndrome 11/06/2019 Benedicto Rios is a 54 y.o. male with history of HTN, HLD, NE with PCI/stenting x5 on plavix, chronic atrial fibrillation on eliquis who presented to OSH on with worsening headache, diplopia, imbalance and word finding difficulty. CT head at OSH noted L parieto-occipital hemorrhage with SAH component and possible underlying mass.He was then transferred to [facility] and admitted to NEICU. MRI sh [...] on RA - Nicotine patch - continue RAVELER symbicort and PRN albuterol - CPAP at [...] > 1.0, Potassium goal >4.0 mEq/L [facility] Consults:Neurosurgery SUBJECTIVE Chief Complaint: Head pain History of Present Illness: Benedicto Rios is a 54 y.o. male with history of HTN, H LD, NE with PCI/stenting x5 on plavix, chronic atrial fibrillation on eliquis wh o presented to OSH on 11/06/19 with worsening headache, diplopia, imbalance and word finding difficulty. CT head at OSH noted L parieto-occipital hemorrhage wit h SAH component and possible underlying mass.He was then transferred to [facility] a nd admitted to NCICU. 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 Plavix and Eliquis was held and he was taken to the OR on 11/11 for resection. He is admitted back to NEU post operatively. He c/o head pain 10/10 and right homonomous hemianop bautista continues. He denies nausea, weakness or new sensory issues. Medical History: Diagnosis Date Brain mass left parietal CAD (coronary artery disease), [place] coronary artery Chronic atrial fibrillation (HCC) COPD [...] Vital Signs: 24 Hour Ra nge BP: 100/88 (11/11 1800) ABP: 111/63 (11/11 [...] procedures reviewed. Ron Cardoza MD Date: 11/11/[phone] UNICATIONS AGENT * Crystal Richards, STOCK SELECTOR-AGENT TICKETING GATE - 11/11/2019 3:26 PM COMMUNICATIONS AGENT Associated Order(s): CONSULT NEURO CRITICAL CARE PHYSICIAN Neuro Critical Care Consult Benedicto Rios Admission Date: 11/06/2019 LOS: 5 days Full Code ASSESSMENT/PLAN Patient Active Problem List Diagnosis Date Noted Hypertension, essential Hyperlipidemia, mixed Diabetes mellitus (HCC) Current smoker COPD (chronic obstructive pulmonary disease) (HCC) Chronic atrial fibrillation (HCC) CAD (coronary artery disease), [place] coronary artery Brain tumor (HCC) 11/10/2019 Left-sided nontraumatic intracerebral hemorrhage (HCC) 11/06/2019 Vasogenic edema (HCC) 11/06/2019 Other headache syndrome 11/06/2019 Benedicto Rios is a 54 y.o. male with history of HTN, HLD, NE with PCI/stenting x5 on plavix, chronic atrial fibrillation on eliquis who presented to OSH on with worsening headache, diplopia, imbalance and word finding difficulty. CT head at OSH noted L parieto-occipital hemorrhage with SAH component and possible underlying mass.He was then transferred to [facility] sh owed necrotic enhancing hemorrhagic mass [...] on RA - Nicotine patch - continue RAVELER symbicort and PRN albuterol - CPAP at [...] > 1.0, Potassium goal >4.0 mEq/L Primary service:[facility] Consults:Neurosurgery SUBJECTIVE Chief Complaint: Head pain History of Present Illness: Benedicto Rios is a 54 y.o. male with history of HTN, H LD, NE with PCI/stenting x5 on plavix, chronic atrial fibrillation on eliquis wh o presented to OSH on 11/06/19 with worsening headache, diplopia, imbalance and word finding difficulty. CT head at OSH noted L parieto-occipital hemorrhage wit h SAH component and possible underlying mass.He was then transferred to [facility] a nd admitted to NEU. 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 Plavix and Eliquis was held and he was taken to the OR on 11/11 for resection. He is admitted back to NEU post operatively. He c/o head pain 10/10 and right homonomous hemianop bautista continues. He denies nausea, weakness or new sensory issues. Medical History: Diagnosis Date Brain mass left parietal CAD (coronary artery disease), [place] coronary artery Chronic atrial fibrillation (HCC) COPD [...] Filed Vital Signs: 24 Hour Ra [facility] BP: 122/75 (11/11 1599) ABP: 115/59 (11/11 [...] and diag nostic procedures reviewed. Crystal Richards, NIMO-AGENT TICKETING GATE Date: 11/11/[phone] I spent 50 minutes managing the care [...] and coordination of care with consulted teams UNICATIONS AGENT * Darion Christianson MD - 11/10/2019 2:27 PM COMMUNICATIONS AGENT Associated Order(s): CONSULT RADIATION ONCOLOGY PHYSICIAN Radiation [...] a history of hypertension, hyperlipidemia, pr ior NE on Plavix chronic A. fib on Eliquis, [...] mass left parietal CAD (coronary artery disease), [place] coronary artery Chronic atrial fibrillation (HCC) COPD [...] file Gets together: Not on file Attends muslim service: Not on file Active member of [...] to the referring provider, Blaise Alston MD. UNICATIONS AGENT * Edel Painting MD - 11/09/2019 9:46 AM COMMUNICATIONS AGENT Associated Order(s): CONSULT ONCOLOGY PHYSICIAN Oncology Consult [...] Dawson. Edel Painting MD Heme/Onc Fellow Pager [phone] History of Present Illness: Benedicto Rios is a 54 y.o. male with a history of hype rtension, hyperlipidemia, prior NE on Plavix chronic A. fib on Eliquis, [...] mass left parietal CAD (coronary artery disease), [place] coronary artery Chronic atrial fibrillation (HCC) COPD [...] file Gets together: Not on file Attends muslim service: Not on file Active member of [...] 98 % (11/09 813) SpO2 Pulse: 79 (11/090) BP: (114-139)/(75-98) Temp: [36.7 C (98 F)-37 [...] Pertinent radiology reviewed. Edel Painting MD Pager UNICATIONS AGENT Associated attestation - My Dawson MD - 11/09/2019 2:55 PM COMMUNICATIONS AGENT ATTESTATION I personally performed the anne portions of the E/M visit, discussed case with Dr Reji Painting and concur with her documentation of history, physical exam, assessmen t, and treatment plan unless otherwise noted. We will await pathology and input of radiation oncology. Staff name: My Dawson MD Date: 11/09/2019 * Herman Torres MD - 11/06/2019 12:49 PM COMMUNICATIONS AGENT Associated Order(s): CONSULT REHABILITATION MEDICINE PHYSICIAN Physical [...] a 54 y.o. male admitted to [facility] on with the following issues: L parieto-occipital hemorrhage with likely underlying mass Impairments: aphasia, communication deficits and visual field cut Activity Limitations: ambulation, stairs, expression and balance impairment Participation Restrictions: unable to return home safely at the moment Post-acute care rehabilitation needs: Potentially acute inpatient rehab, may pro adrienne towards safe discharge home with outpatient versus home health PT/OT/SUPERVISOR BINDERY. -At the moment, patient demonstrates therapy goals with PT/OT/SUPERVISOR BINDERY (to address mi ld expressive aphasia and [...] 3 therapeutic disciplines, including PT, OT, and SUPERVISOR BINDERY. This john l need to be determined prior to considering admission to acute inpatient rehabi litation. *Mass work-up: Plan to evaluate origin of underlying mass and tentative next stefania ps in care plan should be in place prior to consideration of acute inpatient servando ab admission. Herman Torres MD Rehab Consult Pager: [phone] History of Present Illness Chief Complaint: "Gap [...] mass. Nicole ent has been participating with PT/OT/SUPERVISOR BINDERY for therapy evaluations. Patient repo rts visual field cut, word finding difficulty, gait instability. Patient reside s with who is unable to provide consistent support given her chronic pain c onditions. Patient lives in [place], [place] and was previously independent wi th mobility and ADL performance. Past Medical History Medical History: Diagnosis Date CAD (coronary artery disease), [place] coronary artery Chronic atrial fibrillation (HCC) COPD [...] chloride PRN, sod ium phosphate IVPB PRN (Nurse Auditor from Rx) AND Phosphorus PRN AND Notify [...] all needs met and bed alarm set. SUPERVISOR BINDERY COGNITIVE EVALUATION SUMMARY PRAGMATICS: BEHAVIOR: AUDITORY COMPREHENSION: [...] swallow eval. Disccussed results in person w/ AGENT TICKETING GATE and RN. Swallow Recommendations* PO: Regular, Thin Liquids Plan: (F/U to complete language eval) Prognosis: Good(for swallow, fair for language) Review of Systems A 14 point review of systems was negative except for: as described in brief hosp ital course Physical Exam BP: 111/57 (11/06 1100) Temp: 37.2 C (98.9 F) (11/06 0800) Pulse: 70 (11/06 1100) Respirations: 15 PER MINUTE (11/06 1100) SpO2: 97 % (11/06 1100) SpO2 Pulse: 70 (11/06 1100) Height: 175.3 cm (69.02") (11/06 0402) Body mass index is 28.64 kg/m. Gen: [...] ABC 0.00 11/06/2019 04:31 AM Radiology: Reviewed UNICATIONS AGENT * Bubba Ojeda MD - 11/06/2019 7:33 AM COMMUNICATIONS AGENT Associated Order(s): CONSULT NEUROSURGERY PHYSICIAN Neurosurgery History and Physical Examination Benedicto Rios Admission Date: 11/06/2019 Chief Complaint: Headaches History of Present Illness: Benedicto Rios is a 54 y.o. male who is transferred to [facility] for diagnosis of new b rain mass [...] History: Diagnosis Date CAD (coronary artery disease), [place] coronary artery Chronic atrial fibrillation (HCC) COPD [...] in exam --Discussed with staff Please call [phone] with questions Bubba Ojeda MD [id number] UNICATIONS AGENT Associated attestation - Reyes Nsebitt MD - 11/06/2019 9:13 AM COMMUNICATIONS AGENT ATTESTATION I personally performed the anne portions of the E/M visit, discussed case with re sident and concur with resident documentation of history, physical exam, assessm ent, and treatment plan unless otherwise noted. Left parietal hemorrhage with concern for underlying mass. Will get MRI to [facility]. If this is a mass, will need further work-up with potential surgery. Luis Enrique kwok, given the fact that he is on Plavix & Eloquis (last taken 11/05), will need to wait until next week. Staff name: Reyes Nesbitt MD Date: 11/06/2019 documented in this encounter Miscellaneous Notes * Care Plan - Luli Corrigan RN ([place]) - 11/13/2019 12:08 PM COMMUNICATIONS AGENT Pt DC'd home UNICATIONS AGENT * Case Mgmt DC Plan - Deedee Messer RN - 11/13/2019 11:32 AM COMMUNICATIONS AGENT Case Management Progress Note NAME:Benedicto Rios : AGE: 54 y.o. ADMISSION DATE: 11/06/2019 DAYS ADMITTED: LOS: 7 days Todays Date: 11/13/2019 Plan Discharge to home Outpatient rehabilitation Interventions ? Support ? Info or Referral ? Discharge Planning Discharge Planning: Outpatient Rehabilitation Current PT recommendations: Home/prior living situation; Outpatient Current OT recommendations: Home/prior living situation; Outpatient Current SUPERVISOR BINDERY recommendations: SUPERVISOR BINDERY intervention at next level of care (OP) Patient has adequate transportation options to attend outpatient therapy appoint ments, and family support to participate in recovery recommendations. [facility] keaton red a list of PT/OT/ST providers [...] Name, Phone and Availability #1: Shira Rios [phone]([facility]) ? Next Level of Care (Acute Psych discharges only) ? Discharge Disposition Durable Medical Equipment No service has been selected for the patient. [facility] Destination No service has been selected for the patient. Home Care No service has been selected for the patient. Dialysis/Infusion No service has been selected for the patient. KATE Tay, RN, ACM-ball ender Nurse Director Shopper Marketing [phone], *[phone] UNICATIONS AGENT * Care Coordination-Inpatient - Saar Villafana RN - 11/13/2019 10:53 AM COMMUNICATIONS AGENT Benedicto Rios Left Parietal Craniotomy for Tumor Resection on 11/11/[address] Nesbitt Neurosurgery Discharge Instructions Contact information: ? Call Neurosurgery if you have questions or are experiencing problems at discha rge [phone]. Post-operative wound care: ? Your incision has [...] Villafana RN Clinical Nurse Coordinator Neurosurgery Office: [phone] UNICATIONS AGENT * Anesthesia Post Op Day 1 - Daiana Carrera SRNA - 11/12/2019 9:49 AM COMMUNICATIONS AGENT Anesthesia Follow-Up Evaluation: Post-Procedure Day One Name: Benedicto Rios : 1965 Age: 54 y.o. Sex: male Procedure Date: 11/11/2019 Procedure: Procedure(s) with comments: LEFT PARIETAL CRANIOTOMY FOR TUMOR RESECTION - CASE LENGTH 3.5 HOURS, BRAINLAB, MICROSCOPE OH6#2, VALENCIA, REQUEST 0889 START STEREOTACTIC COMPUTER-ASSISTED CRANIAL PROCEDURE - INTRADURAL [...] N/V. Tolerating PO intake. Adequate pain control. UNICATIONS AGENT * Operative Report (Direct Entry) - Reyes Nesbitt MD - 11/11/2019 8:59 AM COMMUNICATIONS AGENT Operative Note Name: Benedicto Rios is a [...] room where orotracheal anesthesia was induced. The [facility] head field hockey coach was attached and the patient was positioned appropriately. [employer] neuro navigation system was utilized and registration [...] Cerebellar retractors were placed for retraction. A conference center manager was used t o make 2 bur [...] The patient was extubated, moved to the [facility], and taken to the ICU in stable fashi on. All sponge and needle counts were correct. I performed this procedure with the resident. Disposition: ICU - extubated and stable. Condition: stable Post-op Instructions: MRI in AM. Dex. Keppra. SBP goal <140. Post-op Exam: Patient sedated, unable to perform neurological exam. Reyes Nesbitt MD Pager [phone] UNICATIONS AGENT * Care Plan - Janet George RN - 11/08/2019 5:03 PM COMMUNICATIONS AGENT N/a UNICATIONS AGENT * Care Plan - Jong Monroy - 11/06/2019 4:17 PM COMMUNICATIONS AGENT [employer] CONSULTATION ASSESSMENT/RECOMMENDATIONS Patient was referred for [employer] consultation Tobacco Use Treatment Practical Counseling was [...] Quitline and Accepted llow up provided by [employer] Educational Material: Accepted History of Present Illness [...] can be of further assistance, please call [employer] [phone] UNICATIONS AGENT * Case Mgmt DC Plan - Mirna Steve RN - 11/06/2019 12:49 PM COMMUNICATIONS AGENT Case Management Admission Assessment NAME:Benedicto Rios :1965 AGE: 54 y.o. ADMISSION DATE: 11/06/2019 DAYS ADMITTED: LOS: 0 days Todays Date: 11/06/2019 Source of Information: Patient Problem Intracerebral Hemorrhage 54 y.o.malewho is transferred to [facility] for diagnosis of new brain mass with [...] the patient's primary care physician. This Nurse Director Shopper Marketing provided Stroke & Brain Injury Resource List for community resources including self-care, support groups, local and national organizations, rehabilitation options, respite care, and financial assistance. Reviewed resource list and provided opportunity for questions. Patient Address/Phone [address] [facility] [address] (home) Emergency Contact Extended Emergency Contact Information Primary Emergency Contact: Shira Rios Mobile Relation: Spouse Healthcare Directive Healthcare Directive: No, patient does not have a healthcare directive Would patient like to fill out a (a new) Healthcare Directive?: No, patient decl ined Psych Advance Directive (Psych unit only): No, patient does not have a Psych Adv ance Directive Transportation Does the patient need discharge transport arranged?: No Transportation Name, Phone and Availability #1: Shira Rios [phone]([facility] Expected Discharge Date Expected Discharge Date: [...] Financial Resources ? Coverage Primary Insurance: Medicaid([facility] Aetna ID [id number]) Secondary Insurance: No insurance Additional Coverage: RX(prescriptions are filled at [facility] in [place]; he reports they have been affordable) ? Source of Income Source Of Income: Other (comment)(he is trying to get SSDI; has court appearance for appeal) ? Financial Assistance Needed? No Psychosocial Needs ? Mental Health Mental Health History: No(denies) ? Substance Use History ? Other Cigarettes Current/Previous Services ? PCP Dr. Sissy Kingsley He last saw PCP within a couple months Regional Education Coordinator is Dr. José (sp?) Medical Office Receptionist is Dr. Grider ? Pharmacy [facility] in [place] ? Durable Medical Equipment Durable Medical Equipment [...] and community based services: No ? Patrice Khan: N/A ? Hospice Hospice: No ? Outpatient Therapy PT: In the past When did patient receive care?: "long time ago" for his back, knees and shoulder Name of rehab location/group: in [place] Would patient return for future services?: Yes OT: No SUPERVISOR BINDERY: No ? Half-Way Facility/Assisted SNF: No NH: No ? Inpatient Rehab IPR: No ? [facility] LTACH: No ? Acute Hospital Stay Acute Hospital Stay: No Mirna Lai RN, BSN, ACM Integrated Nurse Director [employer]pper Marketing Neurology Service Pager: [phone] UNICATIONS AGENT documented in this encounter Plan of Treatment Date/Time Name Type Priority Associated Diag noses 11/11/2019 9:33 AM COMMUNICATIONS AGENT [id number] NGS NON BLOOD Pathology 11/11/2019 9:33 AM COMMUNICATIONS AGENT IDH2 NGS NON BLOOD Pathology Order Schedule [...] Diag nosis POC GLUCOSE 11/13/2019 8:03 AM COMMUNICATIONS AGENT HC CBC,AUTOMATED Routine 11/13/2019 4:19 AM COMMUNICATIONS AGENT HC PHOSPHOROUS, SERUM Routine 11/13/2019 4:19 AM COMMUNICATIONS AGENT HC MAGNESIUM Routine 11/13/2019 4:19 AM COMMUNICATIONS AGENT POC GLUCOSE 11/12/2019 10:07 PM COMMUNICATIONS AGENT POC GLUCOSE 11/12/2019 5:44 PM COMMUNICATIONS AGENT POC GLUCOSE 11/12/2019 11:24 AM COMMUNICATIONS AGENT POC GLUCOSE 11/12/2019 6:24 AM COMMUNICATIONS AGENT HC CBC,AUTOMATED Routine 11/12/2019 3:40 AM COMMUNICATIONS AGENT HC PHOSPHOROUS, SERUM Routine 11/12/2019 3:40 AM COMMUNICATIONS AGENT HC MAGNESIUM Routine 11/12/2019 3:40 AM COMMUNICATIONS AGENT MRI HEAD WO/W CONTRAST Routine 11/12/2019 12:35 AM COMMUNICATIONS AGENT POC GLUCOSE 11/11/2019 9:34 PM COMMUNICATIONS AGENT BASIC METABOLIC PANEL STAT 11/11/2019 5:40 PM COMMUNICATIONS AGENT POC GLUCOSE 11/11/2019 5:39 PM COMMUNICATIONS AGENT POC GLUCOSE 11/11/2019 12:33 PM COMMUNICATIONS AGENT POC GLUCOSE 11/11/2019 10:08 AM COMMUNICATIONS AGENT NOTES 11/11/2019 9:33 AM COMMUNICATIONS AGENT HC FROZEN SECTION #1 Routine 11/11/2019 Nontrauma tic hemorrhage 9:24 AM COMMUNICATIONS AGENT of left cerebral hemisphere (HCC) MICROSURGICAL TECHNIQUES 11/11/2019 Nontraumatic hemorrhage - REQUIRING OPERATING 8:00 AM COMMUNICATIONS AGENT of left cerebra l MICROSCOPE USE hemisphere (HCC) STEREOTACTIC 11/11/2019 Nontraumatic hemorr marlon COMPUTER-ASSISTED CRANIAL 8:00 AM COMMUNICATIONS AGENT of left cer ebral PROCEDURE - INTRADURAL hemisphere (HCC) CRANIECTOMY/ BONE FLAP 11/11/2019 Nontraumatic h emorrhage CRANIOTOMY EXCISION 8:00 AM COMMUNICATIONS AGENT of left cerebral SUPRATENTORIAL BRAIN hemisphere (HCC) TUMOR POC GLUCOSE 11/11/2019 7:19 AM COMMUNICATIONS AGENT POC GLUCOSE 11/11/2019 6:14 AM COMMUNICATIONS AGENT HC PLATELET P2Y12 Routine 11/11/2019 RESPONSE 4:18 AM COMMUNICATIONS AGENT HC CBC,AUTOMATED Routine 11/11/2019 4:18 AM COMMUNICATIONS AGENT HC BASIC METABOLIC PANEL Routine 11/11/2019 4:18 AM COMMUNICATIONS AGENT POC GLUCOSE 11/10/2019 10:29 PM COMMUNICATIONS AGENT POC GLUCOSE 11/10/2019 6:06 PM COMMUNICATIONS AGENT POC GLUCOSE 11/10/2019 11:20 AM COMMUNICATIONS AGENT HC BLOOD TYPING, ABO 11/10/2019 CONFIRM 91 9:33 AM COMMUNICATIONS AGENT HC ABO GROUP Routine 11/10/2019 9:00 AM COMMUNICATIONS AGENT POC GLUCOSE 11/10/2019 6:17 AM COMMUNICATIONS AGENT HC PLATELET P2Y12 Routine 11/10/2019 RESPONSE 6:16 AM COMMUNICATIONS AGENT HC CBC,AUTOMATED Routine 11/10/2019 2:47 AM COMMUNICATIONS AGENT HC BASIC METABOLIC PANEL Routine 11/10/2019 2:47 AM COMMUNICATIONS AGENT POC GLUCOSE 11/09/2019 10:01 PM COMMUNICATIONS AGENT POC GLUCOSE 11/09/2019 4:23 PM COMMUNICATIONS AGENT POC GLUCOSE 11/09/2019 11:56 AM COMMUNICATIONS AGENT POC GLUCOSE 11/09/2019 6:50 AM COMMUNICATIONS AGENT HC CBC,AUTOMATED Routine 11/09/2019 4:00 AM COMMUNICATIONS AGENT HC BASIC METABOLIC PANEL Routine 11/09/2019 4:00 AM COMMUNICATIONS AGENT POC GLUCOSE 11/09/2019 1:46 AM COMMUNICATIONS AGENT POC GLUCOSE 11/08/2019 10:01 PM COMMUNICATIONS AGENT POC GLUCOSE 11/08/2019 6:44 PM COMMUNICATIONS AGENT POC GLUCOSE 11/08/2019 4:59 PM COMMUNICATIONS AGENT POC GLUCOSE 11/08/2019 12:52 PM COMMUNICATIONS AGENT POC GLUCOSE 11/08/2019 6:52 AM COMMUNICATIONS AGENT HC CBC,AUTOMATED Routine 11/08/2019 4:08 AM COMMUNICATIONS AGENT HC BASIC METABOLIC PANEL Routine 11/08/2019 4:08 AM COMMUNICATIONS AGENT POC GLUCOSE 11/08/2019 4:05 AM COMMUNICATIONS AGENT POC GLUCOSE 11/07/2019 9:03 PM COMMUNICATIONS AGENT POC GLUCOSE 11/07/2019 5:40 PM COMMUNICATIONS AGENT POC GLUCOSE 11/07/2019 12:45 PM COMMUNICATIONS AGENT HC CALCIUM IONIZED Routine 11/07/2019 12:39 PM COMMUNICATIONS AGENT POC GLUCOSE 11/07/2019 7:00 AM COMMUNICATIONS AGENT POC GLUCOSE 11/07/2019 4:48 AM COMMUNICATIONS AGENT HC CBC,AUTOMATED Routine 11/07/2019 4:43 AM COMMUNICATIONS AGENT HC PHOSPHOROUS, SERUM Routine 11/07/2019 4:43 AM COMMUNICATIONS AGENT HC MAGNESIUM Routine 11/07/2019 4:43 AM COMMUNICATIONS AGENT HC CALCIUM IONIZED Routine 11/07/2019 4:43 AM COMMUNICATIONS AGENT HC BASIC METABOLIC PANEL Routine 11/07/2019 4:43 AM COMMUNICATIONS AGENT POC GLUCOSE 11/06/2019 9:54 PM COMMUNICATIONS AGENT HC PLATELET P2Y12 LUIS FELIPE 11/06/2019 RESPONSE 8:15 PM COMMUNICATIONS AGENT POC GLUCOSE 11/06/2019 7:[address] ABD/PELV W CONTRAST Routine 11/06/2019 6:[address] CHEST W CONTRAST Routine 11/06/2019 6:38 PM COMMUNICATIONS AGENT MRI HEAD WO/W CONTRAST Routine 11/06/2019 6:20 PM COMMUNICATIONS AGENT HC UREA NITROGEN-URINE Routine 11/06/2019 1:10 PM COMMUNICATIONS AGENT HC SODIUM-URINE Routine 11/06/2019 1:10 PM COMMUNICATIONS AGENT HC OSMOLALITY-URINE Routine 11/06/2019 1:10 PM COMMUNICATIONS AGENT HC CREATININE-URINE Routine 11/06/2019 1:10 PM COMMUNICATIONS AGENT POC GLUCOSE 11/06/2019 12:22 PM COMMUNICATIONS AGENT HC OSMOLALITY;BLOOD Routine 11/06/2019 11:30 AM COMMUNICATIONS AGENT 2-D + DOPPLER Routine 11/06/2019 ECHOCARDIOGRAM 9:56 AM COMMUNICATIONS AGENT POC GLUCOSE 11/06/2019 7:43 AM COMMUNICATIONS AGENT CTA HEAD WO/W CONTR+POST STAT 11/06/2019 PRO 5:57 AM COMMUNICATIONS AGENT HC TROPONIN-I STAT 11/06/2019 4:31 AM COMMUNICATIONS AGENT HC PTT(APTT) STAT 11/06/2019 4:31 AM COMMUNICATIONS AGENT HC PT(INR) STAT 11/06/2019 4:31 AM COMMUNICATIONS AGENT HC CBC W/ AUTOMATED DIFF STAT 11/06/2019 4:31 AM COMMUNICATIONS AGENT HC PHOSPHOROUS, SERUM STAT 11/06/2019 4:31 AM COMMUNICATIONS AGENT HC MAGNESIUM STAT 11/06/2019 4:31 AM COMMUNICATIONS AGENT HC HEMOGLOBIN A1C Routine 11/06/2019 4:31 AM COMMUNICATIONS AGENT HC CALCIUM IONIZED STAT 11/06/2019 4:31 AM COMMUNICATIONS AGENT HC Routine 11/06/2019 LIPID-5:CHOL/TRG/HDL/LDL+ 4:31 AM COMMUNICATIONS AGENT VLDL HC COMPREHENSIVE STAT 11/06/2019 METABOLIC PANEL 4:31 AM COMMUNICATIONS AGENT CONSULT IV THERAPY TEAM Routine 11/06/2019 4:24 AM COMMUNICATIONS AGENT ECG 12-LEAD STAT 11/06/2019 4:02 AM COMMUNICATIONS AGENT ECG-SCAN 11/06/2019 12:[address] HEAD EXTERNAL IMAGING Routine 11/05/2019 12:05 AM COMMUNICATIONS AGENT GENERAL RAD CHEST Routine 11/05/2019 EXTERNAL IMAGING 12:00 AM COMMUNICATIONS AGENT documented in this encounter Results * POC GLUCOSE (11/13/2019 8:03 AM COMMUNICATIONS AGENT) Glucose, POC 195 (H) 70 - 100 MG/DL MAIN LAB Specimen Performing Organization Address [facility] Ph one Number MAIN LAB [address] [place] [address] * PHOSPHORUS (11/13/2019 4:19 AM COMMUNICATIONS AGENT) Phosphorus 3.6Comment: NOTE NEW REFERENCE 2.0 - 4.5 MG/DL MAIN LAB RANGES Specimen Blood Performing Organization Address City/[facility] Ph one Number MAIN LAB [address] [place] [address] * MAGNESIUM (11/13/2019 4:19 AM COMMUNICATIONS AGENT) Magnesium 2.1 1.6 - 2.6 mg/dL MAIN LAB Specimen Blood Performing Organization Address [facility] Ph one Number MAIN LAB [address] [place] [address] * CBC (11/13/2019 4:19 AM COMMUNICATIONS AGENT) White Blood 11.7 (H) 4.5 - 11.0 [...] MAIN LAB Specimen Blood Performing Organization Address City/State/[facility] Ph one Number MAIN LAB [address] [place] [address] * POC GLUCOSE (11/12/2019 10:07 PM COMMUNICATIONS AGENT) Glucose, POC 238 (H) 70 - 100 MG/DL MAIN LAB Specimen Performing Organization Address City/State/[facility] Ph one Number MAIN LAB [address] [place] [address] * POC GLUCOSE (11/12/2019 5:44 PM COMMUNICATIONS AGENT) Glucose, POC 240 (H) 70 - 100 MG/DL MAIN LAB Specimen Performing Organization Address City/[facility] Ph one Number MAIN LAB [address] [place] [address] * POC GLUCOSE (11/12/2019 11:24 AM COMMUNICATIONS AGENT) Glucose, POC 165 (H) 70 - 100 MG/DL MAIN LAB Specimen Performing Organization Address City/[facility]/Zipcode Ph one Number MAIN LAB [address] [place] [address] * POC GLUCOSE (11/12/2019 6:24 AM COMMUNICATIONS AGENT) Glucose, POC 142 (H) 70 - 100 MG/DL MAIN LAB Specimen Performing Organization Address City/[facility] Ph one Number MAIN LAB [address] [place] [address] * PHOSPHORUS (11/12/2019 3:40 AM COMMUNICATIONS AGENT) Phosphorus 3.8Comment: NOTE NEW REFERENCE 2.0 - 4.5 MG/DL KU MAIN LAB RANGES Specimen Blood Performing Organization Address [facility] one Number KU MAIN LAB [address] [place] [address] * MAGNESIUM (11/12/2019 3:40 AM COMMUNICATIONS AGENT) Magnesium 2.3 1.6 - 2.6 mg/dL KU MAIN LAB Specimen Blood Performing Organization Address [facility] one Number KU MAIN LAB [address] [place] [address] * CBC (11/12/2019 3:40 AM COMMUNICATIONS AGENT) White Blood 15.4 (H) 4.5 - 11.0 K/UL KU MAIN LAB Cells RBC 5.04 4.4 - 5.5 M/UL KU MAIN LAB Hemoglobin 13.8 13.5 - 16.5 GM/DL KU MAIN LAB Hematocrit 41.5 40 - 50 % KU MAIN LAB MCV 82.3 80 - 100 FL KU MAIN LAB MCH 27.4 26 - 34 PG KU MAIN LAB MCHC 33.3 32.0 - 36.0 G/DL KU MAIN LAB RDW 14.2 11 - 15 % KU MAIN LAB Platelet Count 243 150 - 400 K/UL KU MAIN LAB MPV 8.3 7 - 11 FL KU MAIN LAB Specimen Blood Performing Organization Address [facility] one Number KU MAIN LAB [address] [place] [address] * MRI HEAD WO/W CONTRAST (11/12/2019 12:35 AM COMMUNICATIONS AGENT) Specimen Impressions Performed At Left parieto-occipital necrotic [...] Interface, Radiant Results - 11/12/2019 8:35 AM COMMUNICATIONS AGENT EXAM: MRI BRAIN HISTORY: Status post resection [...] on 11/12/2019 8:10 AM. Performing Organization Address City/State/[facility] Ph one Number RAD RESULTS * POC GLUCOSE (11/11/2019 9:34 PM COMMUNICATIONS AGENT) Glucose, POC 339 (H) 70 - 100 MG/DL MAIN LAB Specimen Performing Organization Address City/State/[facility] Ph one Number MAIN LAB [address] [place] [address] * BASIC METABOLIC PANEL (11/11/2019 5:40 PM COMMUNICATIONS AGENT) Sodium 137 137 - 147 MMOL/L MAIN LAB Potassium 4.1 3.5 - 5.1 MMOL/L MAIN LAB Chloride 105 98 - 110 MMOL/L MAIN LAB CO2 22 21 - 30 MMOL/L KU MAIN LAB Anion Gap 10 3 - 12 KU MAIN LAB Glucose 214 (H) 70 - 100 MG/DL MAIN LAB Blood Urea 17 7 - 25 MG/DL MAIN LAB Nitrogen Creatinine 0.76 0.4 - 1.24 MG/DL MAIN LAB Calcium 8.0 (L) 8.5 - 10.6 MG/DL MAIN LAB eGFR Non >60 >60 mL/min MAIN LAB Comment: [place] The eGFR is not validated f or use in drug dosing adjustments. Continue to use estimated creatinine clearance per dosing reference text. Please contact the Clinical Pharmacist for questions. eGFR >60 >60 mL/min MAIN LAB [place] Comment: The eGFR is not validated for use in drug dosing adjustments. Continue to use estimated creatinine clearance per dosing reference text. Please contact the Clinical Pharmacist for questions. Specimen Blood Performing Organization Address City/[facility] Ph one Number MAIN LAB [address] [place] [address] * POC GLUCOSE (11/11/2019 5:39 PM COMMUNICATIONS AGENT) Glucose, POC 203 (H) 70 - 100 MG/DL MAIN LAB Specimen Performing Organization Address [facility] Ph one Number MAIN LAB [address] [place] [address] * POC GLUCOSE (11/11/2019 12:33 PM COMMUNICATIONS AGENT) Glucose, POC 219 (H) 70 - 100 MG/DL MAIN LAB Specimen Performing Organization Address City/State/Zipcode Ph one Number MAIN LAB [address] [place] [address] * POC GLUCOSE (11/11/2019 10:08 AM COMMUNICATIONS AGENT) Glucose, POC 162 (H) 70 - 100 MG/DL MAIN LAB Specimen Performing Organization Address City/[facility]/Zipcode Ph one Number MAIN LAB [address] [place] [address] * NOTES (11/11/2019 9:33 AM COMMUNICATIONS AGENT) Specimen Notes SENT 11.17.2019 REFERENCE LAB Specimen Performing Organization Address City/State/Zipcode Ph one Number REFERENCE LAB REFERENCE LAB See results for address. * SURGICAL PATHOLOGY (11/11/2019 9:24 AM COMMUNICATIONS AGENT) PATHOLOGY [facility] [email or web address] Department of Pathology and Laboratory Medicine [address] [place] [address] Surgical Pathology Office: [phone] SURGICAL PATHOLOGY REPORT NAME: BENEDICTO RIOS SURG PATH #: [id number] MR #: [id number] SPECIMEN CLASS: [facility] BILLING #: [id number] ALT ID #: LOCATION: DISCHARGED DATE OF [...] status and/or prior pathology. Pursuant to the [employer] Operator Program at the [facility] Pathology Department, selected slides from this [...] material indicated in this report. +++ +++ ksw/11/11/2019 ############################## ############################## ############ Material Received: A: left [...] placed in cassette A1FS for permanent diagnosis. ([facility]) B. Received in formalin, labeled with the patient's name and "left parietal tumor routine" is a 5.4 x 5.2 x 2.7 cm white-easton to pink-brown portion of brain. The specimen is serially sectioned to reveal a white-easton cut surface with a focal dark red area measuring 1.5 x 1.3 x 1.1 cm. Cash Checker sections of the specimen are submitted in cassettes B1-B5 (B2-B4 contain dark red focal area submitted entirely). ([facility]) [facility]/11/11/2019 Intraoperative Consultation: A1FS, smears, brain, "left parietal tumor", biopsy: High-grade glioma Note: A cytologic smear/squash (A1TP) was performed on different areas from the specimen and used together with the frozen sections (A1FS) for optimal evaluation. Frozen section performed at the [facility], [address] [place] [address]. Sonia Frey MD If immunohistochemical stains and/or in situ hybridization are cited in this report, the performance characteristics were determined by the Department of Pathology and Laboratory Medicine of the [facility] ([employer]) in compliance with CLIA'88 regulations. [...] of Pathology and Laboratory Medicine of the [facility]. It has not been cleared or approved by the FDA. The FDA has determined that such clearance or approval is not necessary. Specimen Tissue - Brain Tissue - Brain Performing Organization Address [facility] Ph one Number [facility] [address] [place] [address] * POC GLUCOSE (11/11/2019 7:19 AM COMMUNICATIONS AGENT) Glucose, POC 121 (H) 70 - 100 MG/DL [facility] Specimen Performing Organization Address City/[facility] Ph one Number [facility] [address] [place] [address] * POC GLUCOSE (11/11/2019 6:14 AM COMMUNICATIONS AGENT) Glucose, POC 120 (H) 70 - 100 MG/DL [facility] Specimen Performing Organization Address [facility] Ph one Number [facility] [address] [place] [address] * PLATELET P2Y12 RESPONSE (11/11/2019 4:18 AM COMMUNICATIONS AGENT) Pathologist [facility] Platelet P2Y12 177 KU MAIN LAB Response Specimen Performing Organization Address [facility] Ph one Number KU MAIN LAB [address] [place] [address] * BASIC METABOLIC PANEL (11/11/2019 4:18 AM COMMUNICATIONS AGENT) Pathologist [facility] Sodium 139 137 - 147 MMOL/L KU MAIN LAB Potassium 4.1 3.5 - 5.1 MMOL/L K[facility] MAIN LAB Chloride 105 98 - 110 MMOL/L KU MAIN LAB CO2 24 21 - 30 MMOL/L KU MAIN LAB Anion Gap 10 3 - 12 KU MAIN LAB Glucose 136 (H) 70 - 100 MG/DL K[facility] MAIN LAB Blood Urea 18 7 - 25 MG/DL K[facility] MAIN LAB Nitrogen Creatinine 0.75 0.4 - 1.24 MG/DL K[facility] MAIN LAB Calcium 9.3 8.5 - 10.6 MG/DL [facility] MAIN LAB eGFR Non >60 >60 mL/min [facility] MAIN LAB Comment: [place] The eGFR is not validated f or use in drug dosing adjustments. Continue to use estimated creatinine clearance per dosing reference text. Please contact the Clinical Pharmacist for questions. eGFR >60 >60 mL/min [facility] MAIN LAB [place] Comment: The eGFR is not validated for use in drug dosing adjustments. Continue to use estimated creatinine clearance per dosing reference text. Please contact the Clinical Pharmacist for questions. Specimen Blood Performing Organization Address City/[facility] Ph one Number KU MAIN LAB [address] [place] [address] * CBC (11/11/2019 4:18 AM COMMUNICATIONS AGENT) White Blood 9.6 4.5 - 11.0 K/UL KU MAIN LAB Cells RBC 5.72 (H) 4.4 - 5.5 M/UL K[facility] MAIN LAB Hemoglobin 16.1 13.5 - 16.5 GM/DL K[facility] MAIN LAB Hematocrit 46.9 40 - 50 % [facility] MAIN LAB MCV 82.0 80 - 100 FL KU MAIN LAB MCH 28.1 26 - 34 PG K[facility] MAIN LAB MCHC 34.2 32.0 - 36.0 G/DL [facility] MAIN LAB RDW 14.6 11 - 15 % K[facility] MAIN LAB Platelet Count 275 150 - 400 K/UL K[facility] MAIN LAB MPV 8.3 7 - 11 FL KU MAIN LAB Specimen Blood Performing Organization Address City/[facility]/Zipcode Ph one Number MAIN LAB [address] [place] [address] * POC GLUCOSE (11/10/2019 10:29 PM COMMUNICATIONS AGENT) Glucose, POC 242 (H) 70 - 100 MG/DL MAIN LAB Specimen Performing Organization Address City/[facility] Ph one Number MAIN LAB [address] [place] [address] * POC GLUCOSE (11/10/2019 6:06 PM COMMUNICATIONS AGENT) Glucose, POC 220 (H) 70 - 100 MG/DL MAIN LAB Specimen Performing Organization Address City/[facility] Ph one Number MAIN LAB [address] [place] [address] * POC GLUCOSE (11/10/2019 11:20 AM COMMUNICATIONS AGENT) Glucose, POC 224 (H) 70 - 100 MG/DL MAIN LAB Specimen Performing Organization Address City/[facility] one Number MAIN LAB [address] [place] [address] * BLOOD TYPE CONFIRMATION - ORDER ONLY IF REQUESTED BY LAB (11/10/2019 9:33 AM COMMUNICATIONS AGENT) ABO/RH(D) A POS MAIN LAB Specimen Performing Organization Address [facility] one Number MAIN LAB [address] [place] [address] * TYPE & CROSSMATCH (11/10/2019 9:00 AM COMMUNICATIONS AGENT) Units Ordered 2 MAIN LAB Crossmatch 11/13/2019 MAIN LAB Expires Record Check 2ND TYPE REQUIRED MAIN LAB ABO/RH(D) A POS MAIN LAB Antibody Screen NEG MAIN LAB Electronic YES MAIN LAB Crossmatch Specimen Blood Performing Organization Address City/[facility] Ph one Number MAIN LAB [address] [place] [address] * POC GLUCOSE (11/10/2019 6:17 AM COMMUNICATIONS AGENT) Glucose, POC 147 (H) 70 - 100 MG/DL MAIN LAB Specimen Performing Organization Address City/[facility] Ph one Number MAIN LAB [address] [place] [address] * PLATELET P2Y12 RESPONSE (11/10/2019 6:16 AM COMMUNICATIONS AGENT) Pathologist [facility] Platelet P2Y12 170 KU MAIN LAB Response Specimen Performing Organization Address [facility] one Number KU MAIN LAB [address] [place] [address] * BASIC METABOLIC PANEL (11/10/2019 2:47 AM COMMUNICATIONS AGENT) Pathologist [facility] Sodium 139 137 - 147 MMOL/L KU MAIN LAB Potassium 4.2 3.5 - 5.1 MMOL/L K[facility] MAIN LAB Chloride 104 98 - 110 MMOL/L K[facility] MAIN LAB CO2 24 21 - 30 MMOL/L K[facility] MAIN LAB Anion Gap 11 3 - 12 KU MAIN LAB Glucose 143 (H) 70 - 100 MG/DL KU MAIN LAB Blood Urea 19 7 - 25 MG/DL KU MAIN LAB Nitrogen Creatinine 0.71 0.4 - 1.24 MG/DL KU MAIN LAB Calcium 10.0 8.5 - 10.6 MG/DL K[facility] MAIN LAB eGFR Non >60 >60 mL/min [facility] MAIN LAB Comment: [place] The eGFR is not validated f or use in drug dosing adjustments. Continue to use estimated creatinine clearance per dosing reference text. Please contact the Clinical Pharmacist for questions. eGFR >60 >60 mL/min KU MAIN LAB [place] Comment: The eGFR is not validated for use in drug dosing adjustments. Continue to use estimated creatinine clearance per dosing reference text. Please contact the Clinical Pharmacist for questions. Specimen Blood Performing Organization Address City/[facility] Ph one Number [facility]U MAIN LAB [address] [place] [address] * CBC (11/10/2019 2:47 AM COMMUNICATIONS AGENT) Pathologist [facility] White Blood 10.6 4.5 - 11.0 K/UL KU MAIN LAB Cells RBC 5.79 (H) 4.4 - 5.5 M/UL KU MAIN LAB Hemoglobin 16.0 13.5 - 16.5 GM/DL KU MAIN LAB Hematocrit 46.5 40 - 50 % KU MAIN LAB MCV 80.3 80 - 100 FL KU MAIN LAB MCH 27.6 26 - 34 PG KU MAIN LAB MCHC 34.4 32.0 - 36.0 G/DL KU MAIN LAB RDW 14.4 11 - 15 % KU MAIN LAB Platelet Count 270 150 - 400 K/UL KU MAIN LAB MPV 8.0 7 - 11 FL KU MAIN LAB Specimen Blood Performing Organization Address City/[facility] Ph one Number MAIN LAB [address] [place] [address] * POC GLUCOSE (11/09/2019 10:01 PM COMMUNICATIONS AGENT) Glucose, POC 314 (H) 70 - 100 MG/DL KU MAIN LAB Specimen Performing Organization Address [facility] Ph one Number MAIN LAB [address] [place] [address] * POC GLUCOSE (11/09/2019 4:23 PM COMMUNICATIONS AGENT) Glucose, POC 217 (H) 70 - 100 MG/DL KU MAIN LAB Specimen Performing Organization Address City/[facility] Ph one Number MAIN LAB [address] [place] [address] * POC GLUCOSE (11/09/2019 11:56 AM COMMUNICATIONS AGENT) Glucose, POC 274 (H) 70 - 100 MG/DL MAIN LAB Specimen Performing Organization Address [facility] Ph one Number MAIN LAB [address] [place] [address] * POC GLUCOSE (11/09/2019 6:50 AM COMMUNICATIONS AGENT) Glucose, POC 197 (H) 70 - 100 MG/DL MAIN LAB Specimen Performing Organization Address [facility] one Number MAIN LAB [address] [place] [address] * BASIC METABOLIC PANEL (11/09/2019 4:00 AM COMMUNICATIONS AGENT) Sodium 140 137 - 147 MMOL/L KU MAIN LAB Potassium 3.9 3.5 - 5.1 [...] Nitrogen Creatinine 0.82 0.4 - 1.24 MG/DL MAIN LAB Calcium 8.9 8.5 - 10.6 MG/DL KU MAIN LAB eGFR Non >60 >60 mL/min [facility] MAIN LAB Comment: [place] The eGFR is not validated f or use in drug dosing adjustments. Continue to use estimated creatinine clearance per dosing reference text. Please contact the Clinical Pharmacist for questions. eGFR >60 >60 mL/min MAIN LAB [place] Comment: The eGFR is not validated for use in drug dosing adjustments. Continue to use estimated creatinine clearance per dosing reference text. Please contact the Clinical Pharmacist for questions. Specimen Blood Performing Organization Address City/State/[facility] Ph one Number MAIN LAB [address] [place] [address] * CBC (11/09/2019 4:00 AM COMMUNICATIONS AGENT) White Blood 11.9 (H) 4.5 - 11.0 K/UL MAIN LAB Cells RBC 5.39 4.4 - 5.5 M/UL MAIN LAB Hemoglobin 14.9 13.5 - 16.5 GM/DL MAIN LAB Hematocrit 44.6 40 - 50 % MAIN LAB MCV 82.7 80 - 100 FL MAIN LAB MCH 27.7 26 - 34 PG MAIN LAB MCHC 33.5 32.0 - 36.0 G/DL MAIN LAB RDW 14.6 11 - 15 % MAIN LAB Platelet Count 250 150 - 400 K/UL MAIN LAB MPV 8.2 7 - 11 FL MAIN LAB Specimen Blood Performing Organization Address City/[facility] Ph one Number MAIN LAB [address] [place] [address] * POC GLUCOSE (11/09/2019 1:46 AM COMMUNICATIONS AGENT) Glucose, POC 133 (H) 70 - 100 MG/DL MAIN LAB Specimen Performing Organization Address [facility] Ph one Number MAIN LAB [address] [place] [address] * POC GLUCOSE (11/08/2019 10:01 PM COMMUNICATIONS AGENT) Glucose, POC 105 (H) 70 - 100 MG/DL MAIN LAB Specimen Performing Organization Address City/[facility] Ph one Number MAIN LAB [address] [place] [address] * POC GLUCOSE (11/08/2019 6:44 PM COMMUNICATIONS AGENT) Glucose, POC 315 (H) 70 - 100 MG/DL MAIN LAB Specimen Performing Organization Address City/[facility] Ph one Number MAIN LAB [address] [place] [address] * POC GLUCOSE (11/08/2019 4:59 PM COMMUNICATIONS AGENT) Glucose, POC 395 (H) 70 - 100 MG/DL MAIN LAB Specimen Performing Organization Address [facility] one Number MAIN LAB [address] [place] [id number] * POC GLUCOSE (11/08/2019 12:52 PM COMMUNICATIONS AGENT) Glucose, POC 290 (H) 70 - 100 MG/DL MAIN LAB Specimen Performing Organization Address [facility] one Number MAIN LAB [address] [place] [address] * POC GLUCOSE (11/08/2019 6:52 AM COMMUNICATIONS AGENT) Glucose, POC 250 (H) 70 - 100 MG/DL MAIN LAB Specimen Performing Organization Address [facility] one Number MAIN LAB [address] [place] [address] * BASIC METABOLIC PANEL (11/08/2019 4:08 AM COMMUNICATIONS AGENT) Sodium 134 (L) 137 - 147 MMOL/L MAIN LAB Potassium 4.0 3.5 - 5.1 MMOL/L MAIN LAB Chloride 103 98 - 110 MMOL/L KU MAIN LAB CO2 18 (L) 21 - 30 MMOL/L KU MAIN LAB Anion Gap 13 (H) 3 - 12 MAIN LAB Glucose 260 (H) 70 - 100 MG/DL MAIN LAB Blood Urea 14 7 - 25 MG/DL MAIN LAB Nitrogen Creatinine 0.73 0.4 - 1.24 MG/DL MAIN LAB Calcium 8.8 8.5 - 10.6 MG/DL MAIN LAB eGFR Non >60 >60 mL/min MAIN LAB Comment: [place] The eGFR is not validated f or use in drug dosing adjustments. Continue to use estimated creatinine clearance per dosing reference text. Please contact the Clinical Pharmacist for questions. eGFR >60 >60 mL/min MAIN LAB [place] Comment: The eGFR is not validated for use in drug dosing adjustments. Continue to use estimated creatinine clearance per dosing reference text. Please contact the Clinical Pharmacist for questions. Specimen Blood Performing Organization Address [facility] one Number MAIN LAB [address] [place] [address] * CBC (11/08/2019 4:08 AM COMMUNICATIONS AGENT) White Blood 10.9 4.5 - 11.0 K/UL MAIN LAB Cells RBC 5.67 (H) 4.4 - 5.5 M/UL [facility] Hemoglobin 15.7 13.5 - 16.5 GM/DL [facility] Hematocrit 46.3 40 - 50 % [facility] MCV 81.7 80 - 100 FL [facility] MCH 27.8 26 - 34 PG [facility] MCHC 34.0 32.0 - 36.0 G/DL [facility] RDW 14.5 11 - 15 % [facility] Platelet Count 262 150 - 400 K/UL [facility] MPV 8.1 7 - 11 FL MAIN LAB Specimen Blood Performing Organization Address City/[facility] one Number MAIN LAB [address] [place] [address] * POC GLUCOSE (11/08/2019 4:05 AM COMMUNICATIONS AGENT) Glucose, POC 246 (H) 70 - 100 MG/DL MAIN LAB Specimen Performing Organization Address City/[facility] one Number MAIN LAB [address] [place] [address] * POC GLUCOSE (11/07/2019 9:03 PM COMMUNICATIONS AGENT) Glucose, POC 273 (H) 70 - 100 MG/DL MAIN LAB Specimen Performing Organization Address City/[facility]/Zipcode Ph one Number MAIN LAB [address] [place] [address] * POC GLUCOSE (11/07/2019 5:40 PM COMMUNICATIONS AGENT) Glucose, POC 238 (H) 70 - 100 MG/DL MAIN LAB Specimen Performing Organization Address City/[facility]/Zipcode Ph one Number MAIN LAB [address] [place] [address] * POC GLUCOSE (11/07/2019 12:45 PM COMMUNICATIONS AGENT) Glucose, POC 341 (H) 70 - 100 MG/DL MAIN LAB Specimen Performing Organization Address City/[facility] one Number MAIN LAB [address] [place] [address] * IONIZED CALCIUM (11/07/2019 12:39 PM COMMUNICATIONS AGENT) Ionized Calcium 1.01 1.0 - 1.3 MMOL/L KU MAIN LAB Specimen Blood Performing Organization Address [facility] one Number MAIN LAB [address] [place] [address] * POC GLUCOSE (11/07/2019 7:00 AM COMMUNICATIONS AGENT) Glucose, POC 194 (H) 70 - 100 MG/DL KU MAIN LAB Specimen Performing Organization Address [facility] Ph one Number MAIN LAB [address] [place] [address] * POC GLUCOSE (11/07/2019 4:48 AM COMMUNICATIONS AGENT) Glucose, POC 206 (H) 70 - 100 MG/DL MAIN LAB Specimen Performing Organization Address [facility] one Number MAIN LAB [address] [place] [address] * IONIZED CALCIUM (11/07/2019 4:43 AM COMMUNICATIONS AGENT) Ionized Calcium 0.93 (L) 1.0 - 1.3 MMOL/L MAIN LAB Specimen Blood Performing Organization Address [facility] Ph one Number MAIN LAB [address] [place] [address] * MAGNESIUM (11/07/2019 4:43 AM COMMUNICATIONS AGENT) Magnesium 1.8 1.6 - 2.6 mg/dL MAIN LAB Specimen Blood Performing Organization Address [facility] Ph one Number MAIN LAB [address] [place] [address] * PHOSPHORUS (11/07/2019 4:43 AM COMMUNICATIONS AGENT) Phosphorus 3.2Comment: NOTE NEW REFERENCE 2.0 - 4.5 MG/DL MAIN LAB RANGES Specimen Blood Performing Organization Address [facility] Ph one Number MAIN LAB [address] [place] [address] * BASIC METABOLIC PANEL (11/07/2019 4:43 AM COMMUNICATIONS AGENT) Sodium 134 (L) 137 - 147 MMOL/L KU MAIN LAB Potassium 4.1 3.5 - 5.1 MMOL/L KU MAIN LAB Chloride 104 98 - 110 MMOL/L KU MAIN LAB CO2 18 (L) 21 - 30 MMOL/L KU MAIN LAB Anion Gap 12 3 - 12 KU MAIN LAB Glucose 220 (H) 70 - 100 MG/DL MAIN LAB Blood Urea 19 7 - 25 MG/DL KU MAIN LAB Nitrogen Creatinine 0.70 0.4 - 1.24 MG/DL MAIN LAB Calcium 8.2 (L) 8.5 - 10.6 MG/DL MAIN LAB eGFR Non >60 >60 mL/min KU MAIN LAB Comment: [place] The eGFR is not validated f or use in drug dosing adjustments. Continue to use estimated creatinine clearance per dosing reference text. Please contact the Clinical Pharmacist for questions. eGFR >60 >60 mL/min KU MAIN LAB [place] Comment: The eGFR is not validated for use in drug dosing adjustments. Continue to use estimated creatinine clearance per dosing reference text. Please contact the Clinical Pharmacist for questions. Specimen Blood Performing Organization Address [facility] Ph one Number MAIN LAB [address] [place] [address] * CBC (11/07/2019 4:43 AM COMMUNICATIONS AGENT) White Blood 10.1 4.5 - 11.0 K/UL MAIN LAB Cells RBC 5.11 4.4 - 5.5 M/UL MAIN LAB Hemoglobin 14.1 13.5 - 16.5 GM/DL MAIN LAB Hematocrit 42.3 40 - 50 % MAIN LAB MCV 82.7 80 - 100 FL MAIN LAB MCH 27.6 26 - 34 PG MAIN LAB MCHC 33.3 32.0 - 36.0 G/DL MAIN LAB RDW 14.5 11 - 15 % KU MAIN LAB Platelet Count 208 150 - 400 K/UL MAIN LAB MPV 7.9 7 - 11 FL MAIN LAB Specimen Blood Performing Organization Address [facility] Ph one Number MAIN LAB [address] [place] [address] * POC GLUCOSE (11/06/2019 9:54 PM COMMUNICATIONS AGENT) Glucose, POC 289 (H) 70 - 100 MG/DL MAIN LAB Specimen Performing Organization Address [facility] Ph one Number MAIN LAB [address] [place] [address] * PLATELET P2Y12 RESPONSE (11/06/2019 8:15 PM COMMUNICATIONS AGENT) Platelet P2Y12 213 KU MAIN LAB Response Specimen Performing Organization Address City/[facility]/Zipcode Ph one Number MAIN LAB [address] [place] [address] * POC GLUCOSE (11/06/2019 7:20 PM COMMUNICATIONS AGENT) Glucose, POC 217 (H) 70 - 100 MG/DL KU MAIN LAB Specimen Performing Organization Address [facility] Ph one Number MAIN LAB [address] [place] [address] * CT ABD/PELV W CONTRAST (11/06/2019 6:38 PM COMMUNICATIONS AGENT) Specimen Impressions Performed At CHEST: KU RAD [...] Interface, Radiant Results - 11/07/2019 9:[address] CHEST, ABDOMEN AND PELVIS Clinical Indication: [...] CT CHEST W CONTRAST (11/06/2019 6:38 PM COMMUNICATIONS AGENT) Specimen Impressions Performed At CHEST: KU RAD [...] Interface, Radiant Results - 11/07/2019 9:[address] CHEST, ABDOMEN AND PELVIS Clinical Indication: [...] MRI HEAD WO/W CONTRAST (11/06/2019 6:20 PM COMMUNICATIONS AGENT) Specimen Impressions Performed At Necrotic enhancing hemorrhagic [...] Interface, Radiant Results - 11/07/2019 10:52 AM COMMUNICATIONS AGENT EXAM: MRI BRAIN HISTORY: r/o mass, TECHNIQUE: [...] on 11/07/2019 7:33 AM. Performing Organization Address City/[facility] one Number RAD RESULTS * UREA NITROGEN-URINE RANDOM (11/06/2019 1:10 PM COMMUNICATIONS AGENT) Urea Nitrogen 811 MG/DL MAIN LAB Specimen Urine - Urine Performing Organization Address [facility] one Number MAIN LAB [address] [place] [address] * CREATININE-URINE RANDOM (11/06/2019 1:10 PM COMMUNICATIONS AGENT) Creatinine, 178 MG/DL MAIN LAB Random Specimen Urine - Urine Performing Organization [facility] one Number MAIN LAB [address] [place] [address] * OSMOLALITY-URINE RANDOM (11/06/2019 1:10 PM COMMUNICATIONS AGENT) Osmolality-Urin 985 50 - 1,400 MOS/KG MAIN LAB e Specimen Urine - Urine Performing Organization [facility] one Number MAIN LAB [address] [place] [address] * SODIUM-URINE RANDOM (11/06/2019 1:10 PM COMMUNICATIONS AGENT) Sodium, Random 54 MMOL/L MAIN LAB Specimen Urine - Urine Performing Organization [facility] one Number MAIN LAB [address] [place] [address] * POC GLUCOSE (11/06/2019 12:22 PM COMMUNICATIONS AGENT) Glucose, POC 284 (H) 70 - 100 MG/DL MAIN LAB Specimen Performing Organization Address [facility]/State/Zipcode Ph one Number MAIN LAB [address] [place] [address] * OSMOLALITY (11/06/2019 11:30 AM COMMUNICATIONS AGENT) [facility] Osmolality 297 280 - 307 MOSMOL/KG MAIN LA B Specimen Blood Performing Organization Address City/State/Zipcode Ph one Number MAIN LAB [address] [place] [address] * 2-D + DOPPLER ECHOCARDIOGRAM (11/06/2019 9:56 AM COMMUNICATIONS AGENT) [facility] IVS 0.96 0.6 - 1.0 cm [...] 2.07 m2 OTHER OUTSIDE LAB CV ECHO OSVALDO Patiño RN OTHER OUTSIDE MOBILE MECHANIC LAB FS 23.54 28 - 44 % OTHER OUTSIDE LAB EF 40.02 % OTHER OUTSIDE LAB LV mass 182.62 88 - 224 g OTHER OUTSIDE LAB RWT 0.43 <=0.42 OTHER OUTSIDE LAB E/A ratio 1.16 OTHER OUTSIDE LAB Lateral E/E' 7.73 OTHER OUTSIDE ratio LAB Left Atrium 16.29 16 - 34 OTHER OUTSIDE Index LAB Cardiology Siemens [id number] OTHER OUTSIDE Ultrasound LAB Machine Left Ventricle [...] LAB * POC GLUCOSE (11/06/2019 7:43 AM COMMUNICATIONS AGENT) Glucose, POC 240 (H) 70 - 100 MG/DL KU MAIN LAB Specimen Performing Organization Address City/State/[facility] one Number MAIN LAB [address] [place] [address] * CTA HEAD WO/W CONTR+POST PRO (11/06/2019 5:57 AM COMMUNICATIONS AGENT) Specimen Impressions Performed At 1. Patent intracranial [...] Interface, Radiant Results - 11/06/2019 6:40 AM COMMUNICATIONS AGENT EXAM: CTA HEAD HISTORY: 54-year-old male, intracranial [...] on 11/06/2019 5:54 AM. Performing Organization Address [facility] one Number KU RAD RESULTS * PHOSPHORUS (11/06/2019 4:31 AM COMMUNICATIONS AGENT) Phosphorus 3.7Comment: NOTE NEW REFERENCE 2.0 - 4.5 MG/DL KU MAIN LAB RANGES Specimen Blood Performing Organization Address [facility] one Number KU MAIN LAB [address] [place] [address] * MAGNESIUM (11/06/2019 4:31 AM COMMUNICATIONS AGENT) Magnesium 1.6 1.6 - 2.6 mg/dL KU MAIN LAB Specimen Blood Performing Organization Address [facility] one Number KU MAIN LAB [address] [place] [address] * IONIZED CALCIUM (11/06/2019 4:31 AM COMMUNICATIONS AGENT) Ionized Calcium 1.05 1.0 - 1.3 MMOL/L KU MAIN LAB Specimen Blood Performing Organization Address [facility] one Number KU MAIN LAB [address] [place] [address] * COMPREHENSIVE METABOLIC PANEL (11/06/2019 4:31 AM COMMUNICATIONS AGENT) Sodium 134 (L) 137 - 147 MMOL/L [...] Alk Phosphatase 92 25 - 110 U/L MAIN LAB AST (SGOT) 15 7 - 40 U/L MAIN LAB CO2 21 21 - 30 MMOL/L MAIN LAB ALT (SGPT) 18 7 - 56 U/L MAIN LAB Anion Gap 10 3 - 12 MAIN LAB eGFR Non >60 >60 mL/min MAIN LAB eGFR Non The eGFR is not validated for MAIN LAB use in drug dosing [place] adjustments. Continue to use estimated creatinine clearance per dosing reference text. Please contact the Clinical Pharmacist for questions. eGFR >60 >60 mL/min KU MAIN LAB [place] eGFR The eGFR is not validated for MAIN LAB [place] use in drug dosing adjustments. Continue to use estimated creatinine clearance per dosing reference text. Please contact the Clinical Pharmacist for questions. Specimen Blood Performing Organization Address City/[facility] Ph one Number MAIN LAB [address] [place] [address] * HEMOGLOBIN A1C (11/06/2019 4:31 AM COMMUNICATIONS AGENT) Hemoglobin A1C 11.8 (H) 4.0 - 6.0 % MAIN LAB Comment: The ADA recommends that most patients with type 1 and type 2 diabetes maintain an A1c level <7%. Specimen Blood Performing Organization Address [facility] one Number MAIN LAB [address] [place] [address] * LIPID PROFILE (11/06/2019 4:31 AM COMMUNICATIONS AGENT) Cholesterol 125 <200 MG/DL MAIN LAB Triglycerides 208 (H) <150 MG/DL MAIN LAB HDL 24 (L) >40 MG/DL MAIN LAB LDL 66 <100 mg/dL MAIN LAB VLDL 42 MG/DL MAIN LAB Non HDL 101 MG/DL MAIN LAB Cholesterol Comment: Calculated non-HDL Cholesterol (non-HDL-C) indirectly measures LDL-C, Lp(a), IDL-C, and VLDL-C. It is a surrogate marker for Apoprotein B. Goal should be less than 130 mg/dL. Specimen Blood Performing Organization Address City/[facility] Ph one Number MAIN LAB [address] [place] [id number] * TROPONIN-I (11/06/2019 4:31 AM COMMUNICATIONS AGENT) Troponin-I 0.00 0.0 - 0.05 NG/ML KU MAIN LAB Specimen Blood Performing Organization Address [facility] Ph one Number TERRI MAIN LAB [address] [place] [address] * PTT (APTT) (11/06/2019 4:31 AM COMMUNICATIONS AGENT) APTT 28.4 24.0 - 36.5 SEC KU MAIN LAB Specimen Blood Performing Organization Address [facility] one Number TERRI MAIN LAB [address] [place] [address] * PROTIME INR (PT) (11/06/2019 4:31 AM COMMUNICATIONS AGENT) INR 1.1 0.8 - 1.2 MAIN LAB Specimen Blood Performing Organization Address [facility] one Number TERRI MAIN LAB [address] [place] [address] * CBC AND DIFF (11/06/2019 4:31 AM COMMUNICATIONS AGENT) White Blood 15.7 (H) 4.5 - 11.0 K/UL MAIN LAB Cells RBC 5.55 (H) 4.4 - 5.5 M/UL KU MAIN LAB Hemoglobin 15.5 13.5 - 16.5 GM/DL KU MAIN LAB Hematocrit 45.7 40 - 50 % KU MAIN LAB MCV 82.3 80 - 100 FL MAIN LAB MCH 28.0 26 - 34 PG MAIN LAB MCHC 34.0 32.0 - 36.0 G/DL MAIN LAB RDW 14.5 11 - 15 % KU MAIN LAB Platelet Count 263 150 - 400 K/UL MAIN LAB MPV 8.1 7 - 11 FL MAIN LAB DIFFA KU MAIN LAB Neutrophils [...] one Number MAIN LAB [address] [place] [address] * ECG-SCAN (11/06/2019 12:00 AM COMMUNICATIONS AGENT) Narrative Performed At This result has an attachment that is n ot available. Ordered by an unspecified provider. * CT HEAD EXTERNAL IMAGING (11/05/2019 12:05 AM COMMUNICATIONS AGENT) Specimen Narrative Performed At This order has been auto finalized and does not contain a result. * GENERAL RAD CHEST EXTERNAL IMAGING (11/05/2019 12:00 AM COMMUNICATIONS AGENT) Specimen Narrative Performed At This order has been auto finalized and does not contain a result. documented in this encounter Visit Diagnoses Diagnosis Nontraumatic hemorrhage of left cerebra l hemisphere (HCC) documented in this encounter Administered Medications Action Date Dose Rate Site Medication Order MAR Action 11/12/2019 3:52 PM COMMUNICATIONS AGENT 1,000 mg acetaminophen (TYLENOL) tablet 1,000 mg Given 1,000 mg, Oral, EVERY 6 HOURS PRN, Starting Tu11/11/19 at 1630, Until Rola 11/13/19 at 1408, Pain non-opioid: may be used alone or in combination with opioi d analgesia, Temp > ..., 38.3C, TOTAL ACETAMINOPHEN DOSE NOT TO EXCEED 4GM DAILY, 1,000 mg Given 11/12/2019 9:00 AM COMMUNICATIONS AGENT 1,000 mg Given 11/12/2019 1:14 AM COMMUNICATIONS AGENT albuterol sulfate (PROAIR HFA) inhaler 2 puff 2 puff, Inhalation, RT EVERY 4 HOURS PRN, Starting Sun11/12/19 at 1755, Until Rola 11/13/19 at 1408, RT PROTOCOL, When administered by RT, will be per RT policy., 11/10/2019 6:04 PM COMMUNICATIONS AGENT 30 mL aluminum/magnesium hydroxide (MAALOX) Given oral suspension 30 mL 30 mL, Oral, NEEDED, Starting 11/10/19 at 1801, Until Rola 11/13/19 at 1408, Indigestion/Heartburn 11/13/2019 9:35 AM COMMUNICATIONS AGENT 2.5 mg amLODIPine (NORVASC) tablet 2.5 mg Given 2.5 mg, Oral, DAILY, First dose on Rola 1/30/20 at 0945, Until Discontinued, NURSING: Please educate patient and document: Do not give with grapefruit juice., 2.5 mg Given 11/12/2019 8:23 AM COMMUNICATIONS AGENT 2.5 mg Given 11/10/2019 8:54 AM COMMUNICATIONS AGENT 11/13/2019 9:34 AM COMMUNICATIONS AGENT 80 mg atorvastatin (LIPITOR) tablet 80 mg Given 80 mg, Oral, DAILY, First dose on Sun11/06/19 at 0945, Until Discontinued 80 mg Given 11/12/2019 8:23 AM COMMUNICATIONS AGENT 80 mg Given 11/10/2019 8:54 AM COMMUNICATIONS AGENT 11/11/2019 9:24 AM COMMUNICATIONS AGENT 500 mL Other bacitracin (BACIIM) 50,000 Units in Given Ringer's 500 mL irrigation bottle 500 mL, INTRA-PROCEDURE MED, Starting Sun11/11/19 at 0907, Until Sun11/11/19 at 1154, Intra-op 11/13/2019 5:20 AM COMMUNICATIONS AGENT 2 puffs budesonide-formoteroL (SYMBICORT HFA) Given 160-4.5 mcg/actuation inhalation 2 puff 2 puff, Inhalation, RT TWICE DAILY, First dose on Sun11/06/19 at 0845, Unti l Discontinued, When administered by RT, will be per RT policy., 2 puffs Given 11/12/2019 5:41 PM COMMUNICATIONS AGENT 2 puffs Given 11/12/2019 6:11 AM COMMUNICATIONS AGENT 11/13/2019 9:35 AM COMMUNICATIONS AGENT 4 mg dexAMETHasone (DECADRON) tablet 4 mg Given 4 mg, Oral, EVERY 6 HOURS, First dose on Sun11/07/19 at 0700, Until Discontinued 4 mg Given 11/13/2019 3:04 AM COMMUNICATIONS AGENT 4 mg Given 11/12/2019 9:03 PM COMMUNICATIONS AGENT 11/13/2019 9:35 AM COMMUNICATIONS AGENT 100 mg docusate (COLACE) capsule 100 mg Given 100 mg, Oral, TWICE DAILY, First dose o n Sun11/06/19 at 0900, Until Discontinued , Hold for loose stools, 100 mg Given 11/12/2019 9:04 PM COMMUNICATIONS AGENT 100 mg Given 11/12/2019 8:23 AM COMMUNICATIONS AGENT fentaNYL citrate PF (SUBLIMAZE) injection 25-50 mcg 25-50 mcg, Intravenous, EVERY 4 HOURS PRN, Starting Sun11/12/19 at 1115, Until Sun11/13/19 at 1408, Pain Injectable 11/13/2019 8:04 AM COMMUNICATIONS AGENT 4 Units Arm, Rig ht insulin aspart [...] , administer 1 2 units insulin, at , 03* administer 8 units. -POC glucose 301-350mg/dL at , , administer 16 units insulin, at , 03* administer 12 units. -POC glucose 351-400mg/dL at , , administer 20 units insulin, at 22, 03* administer 16 units. -POC glucose >400mg/dL at , , administer 24 units insulin, at , 03* administer 20 units. *only if ordered [...] Units Arm, Left Given 11/12/2019 10:08 PM COMMUNICATIONS AGENT 8 Units Arm, Right Given 11/12/2019 6:16 PM COMMUNICATIONS AGENT 11/12/2019 9:12 PM COMMUNICATIONS AGENT 40 Units Abdomina l Tissue insulin glargine (LANTUS SOLOSTAR) Given injection PEN 40 Units 40 Units, Subcutaneous, AT BEDTIME DAILY, First dose on 11/08/19 at 2100 , Until Discontinued, -- Do not mix with other insulins -- NOTE: This is a HIGH ALERT Medication., 40 Units Abdominal Tissue Given 11/11/2019 9:34 PM COMMUNICATIONS AGENT 40 Units Abdominal Tissue Given 11/10/2019 8:30 PM COMMUNICATIONS AGENT 11/13/2019 9:34 AM COMMUNICATIONS AGENT 500 mg levETIRAcetam (KEPPRA) tablet 500 mg Given 500 mg, Oral, TWICE DAILY, First dose o n 11/12/19 at 0900, Until Discontinued 500 mg Given 11/12/2019 9:04 PM COMMUNICATIONS AGENT 500 mg Given 11/12/2019 8:59 AM COMMUNICATIONS AGENT 11/11/2019 9:40 AM COMMUNICATIONS AGENT 10 mL Other lidocaine 1%/EPINEPHrine 1:100,000 Given injection INTRA-PROCEDURE MED, Starting Tue 0 at 0940, Until e 11/11/19 at 1154, Intra-op 11/12/2019 9:12 PM COMMUNICATIONS AGENT 1.8 mg Abdomina l Tissue liraglutide (VICTOZA) injection pen 1.8 Given mg 1.8 mg, Subcutaneous, DAILY, First dose on [facility] 11/08/19 at 2100, Until Discontinued, NOTE: This is a HIGH ALER T Medication., 1.8 mg Abdominal Tissue Given 11/11/2019 9:30 PM COMMUNICATIONS AGENT 1.8 mg Abdominal Tissue Given 11/10/2019 8:31 PM COMMUNICATIONS AGENT 11/13/2019 9:35 AM COMMUNICATIONS AGENT 25 mg metoprolol tartrate (LOPRESSOR) tablet Given 25 mg 25 mg, Oral, TWICE DAILY, First dose on Rola 11/06/19 at 0845, Until Discontinued , Hold for heart rate < 60 bpm or MAP <65mmHg - please notify provider if hel d for ANY reason, 25 mg Given 11/12/2019 9:03 PM COMMUNICATIONS AGENT 25 mg Given 11/12/2019 8:23 AM COMMUNICATIONS AGENT 11/09/2019 8:30 AM COMMUNICATIONS AGENT 10 mL milk of magnesia (CONC) oral suspension Given 10 mL 10 mL, Oral, DAILY, First dose on Rola 11/06/19 at 0900, Until Discontinued, Ma y hold if BM within 24 hours of dose. 10 mL CONC = 30 mL MOM, 11/13/2019 9:38 AM COMMUNICATIONS AGENT 1 patch Arm, Rig ht nicotine (NICODERM CQ STEP 2) 14 mg/day Patch/Topica patch 1 patch l Applied 1 patch, Transdermal, Administer over 2 4 Hours, DAILY, First dose on 11/08/19 at 0900, Until Discontinued 1 patch Arm, Left Patch/Topical Applied 11/12/2019 8:22 AM COMMUNICATIONS AGENT 1 patch Deltoid, Right Patch/Topical Applied 11/10/2019 8:54 AM COMMUNICATIONS AGENT 11/11/2019 9:43 PM COMMUNICATIONS AGENT 4 mg nicotine polacrilex (NICORETTE) gum 4 mg Given 4 mg, Buccal, EVERY 2 HOURS PRN, Starting Sun11/08/19 at 0859, Until Sun11/13/19 at 1408, Cravings 11/13/2019 9:35 AM COMMUNICATIONS AGENT 15 mg oxyCODONE (ROXICODONE) tablet 5-15 mg Given 5-15 mg, Oral, EVERY 3 HOURS PRN, Starting Sun11/11/19 at 1630, Until Rola 11/13/19 at 1408, Pain PO 15 mg Given 11/13/2019 1:35 AM COMMUNICATIONS AGENT 15 mg Given 11/12/2019 9:09 PM COMMUNICATIONS AGENT 11/12/2019 9:04 PM COMMUNICATIONS AGENT [address] (PROTONIX) tablet 40 mg Given 40 mg, Oral, DAILY, First dose on Sun11/10/19 at 0315, Until Discontinued, Do not crush or chew tablet., 40 mg Given 11/11/2019 9:27 PM COMMUNICATIONS AGENT 40 mg Given 11/10/2019 8:30 PM COMMUNICATIONS AGENT 11/13/2019 9:35 AM COMMUNICATIONS AGENT 1 tablet senna/docusate (SENOKOT-S) tablet 1 Given tablet 1 tablet, Oral, TWICE DAILY, First dose on Rola 11/06/19 at 0900, Until Discontinued, Hold for loose stools. If patient unable to take tablet, give 10 mL of senna/docusate (SENOKOT-S) solution. Send inKanmuet message to pharmacy., If patient unable to take tablet, give 10 mL of senna/docusate (SENOKOT-S) solution., 1 tablet Given 11/12/2019 9:04 PM COMMUNICATIONS AGENT 1 tablet Given 11/12/2019 8:23 AM COMMUNICATIONS AGENT 11/11/2019 9:40 AM COMMUNICATIONS AGENT 5,000 Units Other thrombin 5,000 unit topical solution Given INTRA-PROCEDURE MED, Starting Sun 0 at 0940, Until Sun11/11/19 at 1154, Intra-op 11/13/2019 9:38 AM COMMUNICATIONS AGENT Arm, Rig ht Verification of Patch Placement and Patch/Topica Integrity - Nicotine 14 MG/24HR l Verified TWICE DAILY, First dose on Sun11/08/19 a t 0900, Until Discontinued, Patch checks are required every shift to ensure the patch is still intact and in place. Please verify patch check findings caitlyn ahuja MAR entry., Arm, Left Patch/Topical Verified 11/12/2019 9:14 PM COMMUNICATIONS AGENT 1 patch Arm, Left Patch/Topical Verified 11/12/2019 8:24 AM COMMUNICATIONS AGENT documented in this encounter
--- OUTSIDE RECORDS SUMMARY | 2019-11-26 07:03 | XMS REPORT | Encounter Summary ---
Author Author [facility] Organization [facility] Address Unknown Phone Unavailable Care Team Providers Care Python Web Developer Name Role Phone Sissy Kingsley MD PCP Reason for Visit * Reason Comments Surgical Followup Encounter Details Care Team Description Date Type Department Reyes Villareal MD [address] [facility] [address] [place] [address] Surgical Followup 11/07/2019 Telephone [facility] [address] [place] [address] Social History Date Tobacco Use [...] encounter Miscellaneous Notes * Telephone Encounter - Tasneem Carrizales - 11/24/2019 3:13 PM TECHNOLOGY SUPPORT ANALYST Patient's spouse Shira contacted clinic requesting refill for oxycodone. I men tioned to her that this refill should be okay but I will have to speak with our Nurse Practitioner Blanca Hernandez first to make sure it is ok. She verbalized her understanding and had no further question. Pharmacy: [facility] [place], [place]. I went on and followed up on patient since his d/c from the hospital, patient's spouse stated that patient has been eating/drinking well,talking more,moving mau und much better, and has been experiencing right eye vision loss. I mentioned to her that this can be addressed at his appointment tomorrow with our GROUND INSTRUCTOR BASIC. NOLOGY SUPPORT ANALYST documented in this encounter Plan of Treatment Not on filedocumented as of this encounter Goals Goal Patient Associated Recent Progress Patient-Stat Aut hor Goal Type Problems ed? Smoking Cessation Lifestyle No Marjan Yang RN documented as of this encounter Visit Diagnoses Not on filedocumented in this encounter
--- OUTSIDE RECORDS SUMMARY | 2019-11-26 07:03 | XMS REPORT | Encounter Summary ---
Author Author [facility] Organization [facility] Address Unknown Phone Unavailable Care Team Providers Care Hotel Night Auditor Name Role Phone PCP Unavailable Encounter Details Care Team Description Date Type Department 11/05/2019 [facility] [address] [address] Social History Date Tobacco Use Types Packs/Day Years Used Never Assessed Sex Assigned at Date Recorded Not on file Industry Job Start Date Occupation Not on file Not on file Not on file Travel End Travel History Travel Start No recent travel history available. documented as of this encounter Medications at Time of Discharge [...] tablet by tablet mouth twice daily. 11/13/2019 apixaban (ELIQUIS) 5 mg Take 5 mg by 0 tablet mouth twice daily. 11/13/2019 clopiDOGrel (PLAVIX) 75 Take 75 mg by 0 mg tablet mouth daily. 11/13/2019 11/25/2019 levETIRAcetam (KEPPRA) Take one 24 tablet 0 500 mg tablet tablet by mouth twice daily for 12 days. 11/06/2019 metFORMIN (GLUCOPHAGE) Take 1,000 mg 0 1,000 mg tablet by mouth twice daily with meals. 11/13/2019 11/24/2019 oxyCODONE (ROXICODONE) 5 Take one 56 tablet 0 mg tablet tablet to three tablets by mouth every 3 hours as needed documented as of this encounter Plan of Treatment Not on filedocumented as of this encounter Goals Goal Patient Associated Recent Progress Patient-Stat Aut hor Goal Type Problems ed? Smoking Cessation Lifestyle No Marjan Yang RN documented as of this encounter Procedures Comments Procedure Name Priority Date/Time Associated Diag nosis GENERAL RAD CHEST Routine 11/05/2019 EXTERNAL IMAGING 12:00 AM DENTAL INSURANCE COORDINATOR documented in this encounter Results * GENERAL RAD CHEST EXTERNAL IMAGING (11/05/2019 12:00 AM DENTAL INSURANCE COORDINATOR) Specimen Narrative Performed At This order has been auto finalized and does not contain a result. documented in this encounter Visit Diagnoses Not on filedocumented in this encounter
--- OUTSIDE RECORDS SUMMARY | 2019-11-26 07:03 | XMS REPORT | Encounter Summary ---
Author Author [facility] Organization [facility] Address Unknown Phone Unavailable Care Team Providers Care Cash Application Clerk Name Role Phone Sissy Kingsley MD PCP Reason for Visit * Auth/Cert Referred By Contact Referred To Contact Status Reason Specialty Diagnoses / Procedures Diagnoses ICH (intracerebral hemorrhage) (HCC) ICH Encounter Details Care Team Description Date Type Department Jennifer Bennett MD [id number] [place], [place] [id number] 11/11/2019 Anesthesia [facility] [place] [address] [place], [place] [id number] Anesthesia Record Responsible Anesthesiologist Anesthesia Start Time Anesthesi a Stop Time Procedure Name Jennifer Bennett MD 11/11/19 0800 11/11/19 1156 LEFT PARIETAL CRANIOTOMY FOR TUMOR RESECTION (Left Head) Date Time Event Comment 600 AN Equip Check 2019 0753 0759 Out of Pre Procedure 0800 Anes Start 0800 In Room 0802 An Start Data 0809 An Induction The patient was ree valuated immediately before moderate or deep sedation use and before anesthesia induction. 0816 An Intubation 0830 Quick Note pinning 0833 Quick Note repinning 0835 Antibiotic Given 0840 Quick Note Arterial line date not pulling over into EMR 0850 Anesthesia Ready 0859 Proc Start 1009 Quick Note BS 162 1136 An Extubation 1151 an stop data 1156 Handoff to RN I completed my SBAR handoff to the receiving nurse. 1156 An Stop Meds Name Total midazolam (VERSED) 1 mg/mL injection 2 mg fentaNYL PF (SUBLIMAZE) injection 75 mcg lidocaine (2%) 200 mg/10mL Injection 280 mg syringe propofol (DIPRIVAN) 200 mg/ 20 mL 320 mg injection (VIAL) rocuronium (ZEMURON) injection 120 mg ondansetron (ZOFRAN) injection 4 mg dexamethasone (DECADRON) 4 mg/mL 10 mg injection propofol (DIPRIVAN) infusion 1,916.28 mg remifentanil (ULTIVA) 1 mg/3 mL 1,000 2,122.41 mcg mcg in sodium chloride 0.9% (NS) 20 mL Injection phenylephrine (LIDIA-SYNEPHRINE) 0.1 mg/mL 550 mcg injection (SYRINGE) sugammadex (BRIDION) 100 mg/mL iv soln 200 mg dextran 70/hypromellose (GENTEAL TEARS; 2 drop BION TEARS) ophthalmic solution mannitol (OSMITROL) 20 % infusion 40 g phenylephrine (LIDIA-SYNEPHRINE) 10 mg in 0.14 mg sodium chloride 0.9% (NS) 250 mL IV dri p (std conc) esmolol (BREVIBLOC) 10 mg/mL injection 210 mg levETIRAcetam (KEPPRA) 1,000 mg in 1,000 mg sodium chloride 0.9% (NS) 100 mL IVPB succinylcholine (ANECTINE) injection 100 mg (10mL SYRINGE) ceFAZolin (ANCEF) injection 2 g fluorescein (AK-FLUOR) 10 % injection 300 mg labetalol (NORMODYNE; TRANDATE) 5mg/mL 10 mg 20 mg injection (SYRINGE) dexmedetomidine (PRECEDEX) 20 mcg/5 mL 20 mcg (4 mcg/mL) injection sodium chloride 0.9 % infusion (1000 400 mL mL bag) electrolyte-R (NORMOSOL-R PH7.4) 1,800 mL infusion * Name O2 N2O Inspired * No blood administrations on file. Removal Type Details Placement 11/13/19 1130 by Meenu An)Luli RN Peripheral 11/06/19; 0858; RN; R; Lower; Forearm; 11/06/19 0858 by DARIUSZ Hunt 20 G; No; N/A; 1; 11/13/19; 1130 Jose lang RN 11/13/19 1130 by Meenu An)Luli RN Peripheral 11/11/19; 0530; RN; L; Forearm; 22 G; 1 ; 11/11/19 0530 by IV 11/13/19; 1130 Gokul Hernandez RN 11/11/19 1136 by Carlos Manuel Funk MD ETT 11/11/19; 0800; Ventilated by mask (1); 11/11/19 0800 by Donald Video laryngoscopy; Single-Lumen; 7.5mm; Priscilla Lee ([facility] 4); 4; Oral; 1-Full view of the glottis; 1 insertion attempt; Auscultation, ETCO2 Detector; 23 centimeters; large floppy epiglottis, [facility] blade used to pickle maker epiglottis; 11/11/19; 1136 11/11/19 1430 by Solange Barnes RN Indwelling 11/11/19; 0820; 16 FR; Regular 0 0820 by Alonzo Urinary (Two-way); 11/11/19; 1430 FARSHAD Maher Catheter 11/13/19 0900 by Meenu (Shyam)Luli RN Peripheral 11/11/19; 0824; IV Therapy; R; Hand; 18 11/11/19 0824 by DARIUSZ Funk G; 1; 11/13/19; 0900 Carlos Manuel Jacinto MD 11/12/19 0553 by Erin Trejo RN Arterial 11/11/19; 0835 (created via procedure 11/11/19 0835 by Good, Line documentation); 20 G; 11/12/19; 0553 Priscilla Jacinto MD 11/13/19 1200 by Meenu (Shyam)Luli RN Wounds 11/11/19; 0859; Head; Surgical Incision ; 11/11/19 0859 by Alonzo, (NOT for 11/13/19; 1200 FARSHAD Maher Pressure Injuries) documented in this encounter Social History Date Tobacco Use Types Packs/Day [...] impairment: No documented as of this encounter OR Notes * Anesthesia Postprocedure Evaluation - Carlos Manuel Funk MD - 11/11/2019 12:04 PM PAINTER ASSISTANT Post-Anesthesia Evaluation Name: Benedicto Carrizales : 1965 Age: 54 y.o. Sex: male Procedure Date: 11/11/2019 Procedure(s) (LRB): LEFT PARIETAL CRANIOTOMY FOR TUMOR RESECTION (Left) STEREOTACTIC COMPUTER-ASSISTED CRANIAL PROCEDURE - INTRADURAL MICROSURGICAL TECHNIQUES - REQUIRING OPERATING MICROSCOPE USE Surgeon: Surgeon(s): Reyes Villareal MD Alvarado, Anthony, MD Post-Anesthesia Vitals No vitals data found for the desired time range. At time of Handoff: HR 95, POX 97, BP 136/61, Temp 98 Post Anesthesia Evaluation Note Evaluation location: ICU Patient participation: recovered; patient participated in evaluation Level of consciousness: alert Pain score: 8 Pain management: inadequate (25 mcg fentanyl given at 1200) Hydration: normovolemia Temperature: 36.0C - 38.4C Airway patency: adequate Perioperative Events Post-op nausea and vomiting: no PONV Postoperative Status Cardiovascular status: hemodynamically stable Respiratory status: spontaneous ventilation and supplemental oxygen Follow-up needed: other ICU Information NSICU information ICP lowering technique in OR: mannitol and hyperventilation anticonvulsants were given Staff involved in transport include: anes resident, surg resident and OR nurse Perioperative Events Perioperative Event: No Emergency Case Activation: No TER ASSISTANT Associated attestation - Jennifer Bennett MD - 11/11/2019 12:35 PM PAINTER ASSISTANT ATTESTATION Post-Anesthesia Evaluation and ICU Transfer Note Attestation: I evaluated the pa tient and the indicated post-anesthesia care is discharge and transfer to the U physician-lead team. Staff name: Jennifer Bennett MD Date: 11/11/2019 * Anesthesia Procedure Notes - Carlos Manuel Funk MD - 11/11/2019 9:46 AM PAINTER ASSISTANT Associated Order(s): A-LINE INSERTION Anesthesia Procedure: Arterial Line Placement A-LINE INSERTION Date/Time: 11/11/2019 8:35 AM Patient location: OR Indications: hemodynamic monitoring Preprocedure checklist performed: 2 patient identifiers, risks & benefits discussed, patient evaluated, timeout performed, consent obtained, patient being monitored and sterile drape Sterile technique: - Proper hand washing - Cap, mask - Sterile gloves - Skin prep for antisepsis Arterial Line Procedure Patient sedated: yes (see MAR) Sedation type: general; Artery prepped with chlorhexidine; skin prep agent completely dried prior to pro cedure. Location: radial artery Laterality: right Technique: palpation Needle gauge: 20 G Number of attempts: 1 Procedure Outcome Catheter secured with adhesive dressing applied Events: no complications noted during insertion and skin intact, warm, and dry Observation: pt tolerated well Performed by: Carlos Manuel Funk MD Authorized by: Jennifer Bennett MD TER ASSISTANT Associated attestation - Jennifer Bennett MD - 11/11/2019 12:35 PM PAINTER ASSISTANT ATTESTATION I was present during the entire procedure performed by a resident Staff name: Jennifer Bennett MD Date: 11/11/2019 * Anesthesia Preprocedure Evaluation - Carlos Manuel Funk MD - 11/10/2019 5:37 PM PAINTER ASSISTANT Anesthesia Pre-Procedure Evaluation Name: Benedicto Carrizales : 1965 Age: 54 y.o. Sex: male Procedure Info: Procedure Information Date/Time: 11/11/19 0830 Procedures: LEFT PARIETAL CRANIOTOMY FOR TUMOR RESECTION (Left ) - CASE LENGTH 3.5 HOURS , BRAINLAB, MICROSCOPE OH6#2, ANNIE, REQUEST 0842 START STEREOTACTIC COMPUTER-ASSISTED CRANIAL PROCEDURE - INTRADURAL (N/A ) MICROSURGICAL TECHNIQUES - REQUIRING OPERATING MICROSCOPE USE (N/A ) Location: [facility] OR01 / [facility] OR/Periop Surgeon: Reyes Villareal MD Physical Assessment Vital Signs (last filed in past 24 hours): BP: 141/85 (11/10 799) Temp: 37 C (98.6 F) (11/10 799) Pulse: 80 (11/10 799) Respirations: 16 PER MINUTE (11/09 1999) SpO2: 97 % (11/10 1725) Patient History Allergies Allergen Reactions Bee Sting Kit ANAPHYLAXIS Bee [Bumble Bee] ANAPHYLAXIS Current Medications Medication Directions albuterol sulfate (PROAIR HFA) 90 mcg/actuation aerosol inhaler Inhale 2 puffs b y mouth into the lungs every 6 hours as needed for Wheezing or Shortness of Wilma th. Shake well before use. amLODIPine (NORVASC) 2.5 mg tablet Take 2.5 mg by mouth daily. apixaban (ELIQUIS) 5 mg tablet Take 5 mg by mouth twice daily. atorvastatin (LIPITOR) 80 mg tablet Take 80 mg by mouth daily. budesonide-formoteroL (SYMBICORT HFA) 160-4.5 mcg/actuation inhalation Inhale 2 puffs by mouth into the lungs twice daily. clopiDOGrel (PLAVIX) 75 mg tablet Take 75 mg by mouth daily. diclofenac (VOLTAREN) 1 % topical gel Apply 4 g topically to affected area as Ne eded. EPINEPHrine (EPIPEN 2-VARUN) 1 mg/mL injection pen (2-Pack) Inject 0.3 mg into the muscle once as needed. Inject 0.3 mg (1 Pen) into thigh if needed for anaphylac tic reaction. May repeat in 5-15 minutes if needed. insulin glargine (LANTUS) 100 unit/mL vial Inject 40 Units under the skin at bed time daily. isosorbide mononitrate SR (IMDUR) 60 mg tablet Take 60 mg by mouth every morning . liraglutide (VICTOZA) 0.6 mg/0.1 mL (18 mg/3 mL) injection pen Inject 1.8 mg und er the skin daily. metFORMIN (GLUCOPHAGE) 1,000 mg tablet Take 1,000 mg by mouth twice daily with m eals. metoprolol XL (TOPROL XL) 50 mg extended release tablet Take 50 mg by mouth aimee archuleta nitroglycerin (NITROSTAT) 0.[address] 0.4 mg under tongue every 5 minute s as needed for Chest Pain. Max of 3 tablets, call 911. Review of Systems/Medical History Patient summary reviewed Pertinent labs reviewed No history of anesthetic complications No family history of anesthetic complications Pulmonary Current smoker (x35 years); patient did not smoke on day of surgery COPD Cardiovascular Recent diagnostic studies: echocardiogram Echo 11/06/18: Left Ventricle: Normal size, wall thickness and shape. Concentric remodeling. Normal ejection fraction with LVEF=56% by Rodriguez's biplane. No segmental wall motion abnormalities. Right Ventricle: Normal size and ejection fraction. There is no significant valve disease. There is no interatrial shunting by color flow Doppler and saline contrast st udies. Exercise tolerance: <4 METS (2/2 SOB) Beta Jaspreet therapy: Yes Hypertension, Coronary artery disease PTCA (LAst PCI 01/2019; lpta plavix and elliquis reversed 2/2 intracranial hem orrhage ) No palpitations Dysrhythmias; atrial fibrillation No angina Hyperlipidemia Dyspnea on exertion GI/Hepatic/Renal GERD (exacerbation with current steroids), poorly controlled No hx of liver disease No renal disease No nausea No vomiting Neuro/Psych No seizures No CVA Headaches Sensory deficit (decreased sensation at left face) Left parieto-occipital mass with associated hemorrhage Musculoskeletal No neck pain Endocrine/Other Diabetes (Aic 11.8), poorly controlled; using insulin Physical Exam Airway Findings Mallampati: I TM distance: >3 FB Neck ROM: full Mouth opening: good Airway patency: adequate Dental Findings: Upper dentures Cardiovascular Findings: Rhythm: regular Rate: normal No murmur Pulmonary Findings: Breath sounds clear to auscultation. Neurological Findings: Alert and oriented x 3 Constitutional findings: No acute distress Diagnostic Tests Hematology: Lab Results Component Value Date HGB 16.0 11/10/2019 HCT 46.5 11/10/2019 PLTCT 270 11/10/2019 WBC 10.6 11/10/2019 NEUT 89 11/06/2019 ANC 14.00 11/06/2019 ALC 1.40 11/06/2019 YESSICA 2 11/06/2019 AMC 0.30 11/06/2019 EOSA 0 11/06/2019 ABC 0.00 11/06/2019 MCV 80.3 11/10/2019 MCH 27.6 11/10/2019 MCHC 34.4 11/10/2019 MPV 8.0 11/10/2019 RDW 14.4 11/10/2019 General Chemistry: Lab Results Component Value Date NA 139 11/10/2019 K 4.2 11/10/2019 CL 104 11/10/2019 CO2 24 11/10/2019 GAP 11 11/10/2019 BUN 19 11/10/2019 CR 0.71 11/10/2019 GLU 143 11/10/2019 CA 10.0 11/10/2019 ALBUMIN 4.2 11/06/2019 OBSCA 1.01 11/07/2019 MG 1.8 11/07/2019 TOTBILI 0.6 11/06/2019 PO4 3.2 11/07/2019 Coagulation: Lab Results Component Value Date PTT 28.4 11/06/2019 INR 1.1 11/06/2019 Anesthesia Plan ASA score: 3 Plan: general and invasive monitoring Special equipment/procedures: Art line Induction method: intravenous NPO status: acceptable Informed Consent Anesthetic plan and risks discussed with patient. Use of blood products discussed with patient Blood Consent: consented Plan discussed with: resident and anesthesiologist. TER ASSISTANT documented in this encounter Plan of Treatment Not on filedocumented as of this encounter Goals Goal Patient Associated Recent Progress Patient-Stat Aut hor Goal Type Problems ed? Smoking Cessation Lifestyle No Marjan Yang RN documented as of this encounter Procedures Comments Procedure Name Priority Date/Time Associated Diag nosis ANESTHESIA ARTERIAL LINE Routine 11/11/2019 INSERTION 9:46 AM PAINTER ASSISTANT documented in this encounter Results * A-LINE INSERTION (11/11/2019 9:46 AM PAINTER ASSISTANT) Narrative Performed At Carlos Manuel Funk MD [...] Funk MD Authorized by: Jennifer Bennett MD documented in this encounter Visit Diagnoses Not on filedocumented in this encounter Administered Medications Action Date Dose Rate Site Medication Order MAR Action 11/11/2019 8:35 AM PAINTER ASSISTANT 2 g ceFAZolin (ANCEF) injection Given INTRA-PROCEDURE MED, Starting Tue 2 0 at 0835, Until 11/11/19 at 1206, Anesthesia Intra-op 11/11/2019 8:45 AM PAINTER ASSISTANT 10 mg dexamethasone (DECADRON) injection Given Intravenous, INTRA-PROCEDURE MED, Starting 11/11/19 at 0845, Until 11/11/19 at 1206, Anesthesia Intra-op 11/11/2019 11:41 AM PAINTER ASSISTANT 20 mcg dexMEDEtomidine (PRECEDEX) injection Given INTRA-PROCEDURE MED, Starting 11/11/2 0 at 1141, Until 11/11/19 at 1206, Anesthesia Intra-op 11/11/2019 8:17 AM PAINTER ASSISTANT 2 drops dextran 70/hypromellose (GENTEAL TEARS) Given ophthalmic solution INTRA-PROCEDURE MED, Starting 11/11/2 0 at 0817, Until 11/11/19 at 1206, Anesthesia Intra-op 11/11/2019 10:36 AM PAINTER ASSISTANT electrolyte-R (PH 7.4) (NORMOSOL-R Given - New PH7.4) injection Bag INTRA-PROCEDURE MED(CONT), Starting 11/11/19 at 0845, Until 11/11/19 at 1206, Anesthesia Intra-op Given - New Bag 11/11/2019 8:26 AM PAINTER ASSISTANT 11/11/2019 11:07 AM PAINTER ASSISTANT 20 mg esmolol (BREVIBLOC) injection Given INTRA-PROCEDURE MED, Starting 11/11/2 0 at 0832, Until 2/4/20 at 1206, Anesthesia Intra-op 30 mg Given 11/11/2019 10:32 AM PAINTER ASSISTANT 30 mg Given 11/11/2019 10:29 AM PAINTER ASSISTANT 11/11/2019 11:54 AM PAINTER ASSISTANT 25 mcg fentaNYL citrate PF (SUBLIMAZE) Given injection INTRA-PROCEDURE MED, Starting 2/4/2 0 at 1142, Until 11/11/20 at 1206, Anesthesia Intra-op 50 mcg Given 11/11/2019 11:42 AM PAINTER ASSISTANT 11/11/2019 8:36 AM PAINTER ASSISTANT 300 mg fluorescein (AK-FLUOR) 500 mg/5 mL (10 Given %) injection INTRA-PROCEDURE MED, Starting Tue 24/2 0 at 0836, Until Tue 20 at 1206, Anesthesia Intra-op 11/11/2019 11:14 AM PAINTER ASSISTANT 10 mg labetalol (NORMODYNE) injection Given INTRA-PROCEDURE MED, Starting Tue 2/2 0 at 1114, Until Tue 220 at 1206, Anesthesia Intra-op 11/11/2019 9:33 AM PAINTER ASSISTANT 1,000 mg levETIRAcetam (KEPPRA) 1,000 mg in Given - New sodium chloride 0.9% (NS) 100 mL IVPB Bag 100 mL, Administer over 15 Minutes, INTRA-PROCEDURE MED(CONT), Starting 11/11/19 at 0933, Until Tue 220 at 1206, Anesthesia Intra-op 11/11/2019 8:16 AM PAINTER ASSISTANT 200 mg lidocaine (PF) injection Given INTRA-PROCEDURE MED, Starting 11/11/2 0 at 0809, Until Tue 220 at 1206, Anesthesia Intra-op 80 mg Given 11/11/2019 8:09 AM PAINTER ASSISTANT 11/11/2019 9:02 AM PAINTER ASSISTANT 40 g mannitol (OSMITROL) 20 % infusion Given INTRA-PROCEDURE MED, Starting Tue 2/2 0 at 0902, Until Tue 2/20 at 1206, Anesthesia Intra-op 11/11/2019 7:56 AM PAINTER ASSISTANT 2 mg midazolam (VERSED) injection Given Intravenous, INTRA-PROCEDURE MED, Starting 11/11/19 at 0756, Until Tue 220 at 1206, Anesthesia Intra-op 11/11/2019 11:18 AM PAINTER ASSISTANT 4 mg ondansetron (ZOFRAN) injection Given Intravenous, INTRA-PROCEDURE MED, Starting 11/11/19 at 1118, Until 11/11/19 at 1206, Anesthesia Intra-op 11/11/2019 11:23 AM PAINTER ASSISTANT 0.2 mcg/kg/min 27 mL/hr phenylephrine (LIDIA-SYNEPHRINE) 10 mg in Infusion sodium chloride 0.9% (NS) 250 mL IV drip Restarted (std conc) 250 mL, INTRA-PROCEDURE MED(CONT), Starting 11/11/19 at 1100, Until 11/11/19 at 1206, Anesthesia Intra-op 0.2 mcg/kg/min 27 mL/hr Given - New Bag 11/11/2019 10:50 AM PAINTER ASSISTANT 11/11/2019 11:18 AM PAINTER ASSISTANT 50 mcg phenylephrine in NS injection syringe Given Intravenous, INTRA-PROCEDURE MED, Starting 11/11/19 at 0839, Until 11/11/19 at 1206, Anesthesia Intra-op 100 mcg Given 11/11/2019 9:13 AM PAINTER ASSISTANT 50 mcg Given 11/11/2019 9:02 AM PAINTER ASSISTANT 11/11/2019 11:23 AM PAINTER ASSISTANT 75 mcg/kg/min 40.5 mL/hr propofol (DIPRIVAN) infusion Dose/Rate 100 mL, Intravenous, INTRA-PROCEDURE Change MED(CONT), Starting 11/11/19 at 0812, Until 11/11/19 at 1206, Anesthesia Intra-op 80 mcg/kg/min 43.2 mL/hr Dose/Rate Change 11/11/2019 11:19 AM PAINTER ASSISTANT 85 mcg/kg/min 45.8 mL/hr Dose/Rate Change 11/11/2019 11:16 AM PAINTER ASSISTANT 11/11/2019 9:16 AM PAINTER ASSISTANT 20 mg propofol (DIPRIVAN) injection Given Intravenous, INTRA-PROCEDURE MED, Starting 11/11/19 at 0829, Until 11/11/19 at 1206, Anesthesia Intra-op 20 mg Given 11/11/2019 8:49 AM PAINTER ASSISTANT 30 mg Given 11/11/2019 8:48 AM PAINTER ASSISTANT 11/11/2019 11:34 AM PAINTER ASSISTANT 0.05 mcg/kg/min 5.4 mL/hr remifentanil (ULTIVA) 1 mg/3 mL 1,000 Dose/Rate mcg in sodium chloride 0.9% (NS) 20 mL Change Injection Intravenous, INTRA-PROCEDURE MED(CONT), Starting 11/11/19 at 0808, Until 11/11/19 at 1206, Anesthesia Intra-op 0.12 mcg/kg/min 12.9 mL/hr Dose/Rate Change 11/11/2019 10:32 AM PAINTER ASSISTANT 50 mcg Bolus 11/11/2019 8:35 AM PAINTER ASSISTANT 11/11/2019 10:27 AM PAINTER ASSISTANT 20 mg rocuronium injection Given Intravenous, INTRA-PROCEDURE MED, Starting 11/11/19 at 0827, Until 11/11/19 at 1206, Anesthesia Intra-op 20 mg Given 11/11/2019 10:16 AM PAINTER ASSISTANT 30 mg Given 11/11/2019 9:11 AM PAINTER ASSISTANT 11/11/2019 7:51 AM PAINTER ASSISTANT sodium chloride 0.9 % infusion Given - New INTRA-PROCEDURE MED(CONT), Starting Tue Bag 11/11/19 at 0751, Until 11/11/19 at 1206, Anesthesia Intra-op 11/11/2019 8:10 AM PAINTER ASSISTANT 100 mg succinylcholine (ANECTINE) injection Given INTRA-PROCEDURE MED, Starting Tue 0 at 0810, Until 11/11/19 at 1206, Anesthesia Intra-op 11/11/2019 11:33 AM PAINTER ASSISTANT 200 mg sugammadex (BRIDION) injection Given Intravenous, INTRA-PROCEDURE MED, Starting 11/11/19 at 1136, Until 11/11/19 at 1206, Anesthesia Intra-op documented in this encounter
--- OUTSIDE RECORDS SUMMARY | 2019-11-26 07:03 | XMS REPORT | Encounter Summary ---
Author Author [facility] Address Unknown Phone Unavailable Care Team Providers Care Belt Loop Machine Operator Name Role Phone PCP Unavailable Encounter Details Care Team Description Date Type Department 11/05/2019 [facility] [address] [address] Social History Date Tobacco Use Types Packs/Day [...] Procedure Name Priority Date/Time Associated Diag nosis CT HEAD EXTERNAL IMAGING Routine 11/05/2019 12:05 AM MACHINE HEEL BUILDER documented in this encounter Results * CT HEAD EXTERNAL IMAGING (11/05/2019 12:05 AM MACHINE HEEL BUILDER) Specimen Narrative Performed At This order has been auto finalized and does not contain a result. documented in this encounter Visit Diagnoses Not on filedocumented in this encounter
--- OUTSIDE RECORDS SUMMARY | 2019-11-26 07:03 | XMS REPORT | Encounter Summary ---
Author Author [facility] Organization [facility] Address Unknown Phone Unavailable Care Team Providers Care Iron Melter Name Role Phone Sissy Kingsley MD PCP Reason for Visit * Reason Comments Cancer New Patient * Auth/Cert Referred By Contact Referred To Contact Status Reason Specialty Diagnoses / Procedures Diagnoses ICH (intracerebral hemorrhage) (HCC) ICH Encounter Details Care Team Description Date Type Department Darion Christianson MD [address] [facility] [place] [address] Brain tumor (HCC) 11/10/[address] [facility] [address] [place] [address] Social History Date Tobacco Use Types Packs/Day [...] as of this encounter Progress Notes * Darion Christianson MD - 11/10/2019 6:00 PM BAKER BREAD Inpatient consult R BREAD documented in this encounter Plan of Treatment Not on filedocumented as of this encounter Goals Goal Patient Associated Recent Progress Patient-Stat Aut hor Goal Type Problems ed? Smoking Cessation Lifestyle No Marjan Yang , RN documented as of this encounter Visit Diagnoses Diagnosis Brain tumor (HCC) Neoplasm of unspecified nature of brain documented in this encounter
--- OUTSIDE RECORDS SUMMARY | 2019-11-26 07:03 | XMS REPORT | Encounter Summary ---
Author Author [facility] Organization [facility] Address Unknown Phone Unavailable Care Team Providers Care Automatic Profile Shaper Operator Name Role Phone Sissy Kingsley MD PCP Encounter Details Care Team Description Date Type Department Melissa Qureshi 11/10/2019 Documentation [facility] [address] [place] [address] Social History Date Tobacco Use Types Packs/Day [...] as of this encounter Progress Notes * Melissa Qureshi - 11/10/2019 9:09 AM SOFTWARE APPLICATIONS DEVELOPER [facility] Radiation Oncology Consultation Request Date: 11/10/19 In-Patient: Yes, [id number] Room: Room/bed info not found Referring Physician: GERARDO NESBITT MD Phone/Pager #: Patient Name: Benedicto Carrizales : 1965 Preferred Phone #: [phone] Primary Diagnosis and Brief History: No diagnosis found. Metastatic Disease: Unknown Site(s): Previous Radiation Unknown Center: Cardiac Device Unknown [employer] Distributor: Name: Location: Primary Insurance: [employer] MEDICAID Secondary Insurance: Radiation Oncologist: Darion Christianson MD, PhD Appointment Date & Time: [id number] 6PM Records Required: Pathology Report: In O2 or Care Everywhere Radiology Studies: In O2 or Care Everywhere H&P/Clinic Notes: In O2 or Care Everywhere Operative Report: In O2 or Care Everywhere Lab Data: In O2 or Care Everywhere WARE APPLICATIONS DEVELOPER documented in this encounter Plan of Treatment Not on filedocumented as of this encounter Goals Goal Patient Associated Recent Progress Patient-Stat Aut hor Goal Type Problems ed? Smoking Cessation Lifestyle No Marjan Yang RN documented as of this encounter Visit Diagnoses Not on filedocumented in this encounter
--- OUTSIDE RECORDS SUMMARY | 2019-11-26 07:05 | XMS REPORT | Continuity of Care Document ---
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 01/09/2019 DUNIA SANTOS MD, Ot 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 01/09/2019 DUNIA SANTOS MD, Ot I48 .0 PAROXYSMAL ATRIAL FIBRILLATION 01/09/2019 DUNIA SANTOS MD, Ot 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 01/09/2019 DUNIA SANTOS MD, Ot J44 .9 CHRONIC OBSTRUCTIVE PULMONARY DISEASE, U 01/09/2019 DUNIA SANTOS MD, Ot K04 .7 PERIAPICAL ABSCESS WITHOUT SINUS 01/09/2019 DUNIA SANTOS MD, Ot R06.09 OTHER FORMS OF DYSPNEA 01/09/2019 DUNIA SANTOS MD, Ot Z68.33 BODY MASS INDEX (BMI) 33.0-33.9, ADULT 01/09/2019 DUNIA SANTOS MD, Ot Z79.01 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 (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 OF ANTICOAGULANT 01/09/2019 DUNIA SANTOS MD, Ot Z79 .4 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 (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 OF INSULIN 01/09/2019 DUNIA SANTOS MD, Ot Z79.82 ALF (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 OF ASPIRIN 01/09/2019 DUNIA SANTOS MD, Ot 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 01/09/2019 DUNIA SANTOS MD, Ot Z87.442 PERSONAL HISTORY OF URINARY CALCULI 01/09/2019 DUNIA SANTOS MD, Ot Z95 .5 PRESENCE OF CORONARY ANGIOPLASTY IMPLANT 01/09/2019 DUNIA SANTOS MD, Ot Z96.651 PRESENCE OF RIGHT ARTIFICIAL KNEE JOINT 01/16/2019 DUNIA SANTOS MD, Ot E11 .9 TYPE 2 DIABETES MELLITUS WITHOUT COMPLIC 01/16/2019 DUNIA SANTOS MD, Ot E55 .9 VITAMIN D DEFICIENCY, UNSPECIFIED 01/16/2019 DUNIA SANTOS MD, Ot E66 .9 OBESITY, UNSPECIFIED 01/16/2019 DUNIA SANTOS MD, Ot E78 .5 HYPERLIPIDEMIA, UNSPECIFIED 01/16/2019 DUNIA SANTOS MD, Ot F17.210 NICOTINE DEPENDENCE, CIGARETTES, UNCOMPL 01/16/2019 DUNIA SANTOS MD, Ot F17.290 NICOTINE DEPENDENCE, OTHER TOBACCO PRODU 01/16/2019 DUNIA SANTOS MD, Ot I21 .4 NON-ST ELEVATION (NSTEMI) MYOCARDIAL INF 01/16/2019 DUNIA SANTOS MD, Ot 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 01/16/2019 DUNIA SANTOS MD, Ot I48 .0 PAROXYSMAL ATRIAL FIBRILLATION 01/16/2019 DUNIA SANTOS MD, Ot 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 01/16/2019 DUNIA SANTOS MD, Ot J44 .9 CHRONIC OBSTRUCTIVE PULMONARY DISEASE, U 01/16/2019 DUNIA SANTOS MD, Ot K04 .7 PERIAPICAL ABSCESS WITHOUT SINUS 01/16/2019 DUNIA SANTOS MD, Ot R06.09 OTHER FORMS OF DYSPNEA 01/16/2019 DUNIA SANTOS MD, Ot Z68.33 BODY MASS INDEX (BMI) 33.0-33.9, ADULT 01/16/2019 DUNIA SANTOS MD, Ot Z79.01 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 (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 OF ANTICOAGULANT 01/16/2019 DUNIA SANTOS MD, Ot Z79 .4 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 (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 OF INSULIN 01/16/2019 DUNIA SANTOS MD, Ot Z79.82 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 (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 OF ASPIRIN 01/16/2019 DUNIA SANTOS MD, Ot Z79.899 OTHER ALF (CURRENT) DRUG THERAPY 01/16/2019 DUNIA SANTOS MD, Ot Z87.442 PERSONAL HISTORY OF URINARY CALCULI 01/16/2019 DUNIA SANTOS MD Ot Z95 .5 PRESENCE OF CORONARY ANGIOPLASTY IMPLANT 01/16/2019 DUNIA SANTOS MD Ot Z96.651 PRESENCE OF RIGHT ARTIFICIAL KNEE JOINT 09/02/2019 ISAAK VANCE FACC, DEANA FACP CCDS Ot E11.9 TYPE 2 DIABETES MELLITUS WITHOUT COMPLIC 09/02/2019 ISAAK VANCE FACC, ALI FACP CCDS Ot E66.9 OBESITY, UNSPECIFIED 09/02/2019 ISAAK VANCE FACC, ALI FACP CCDS Ot E78.49 OTHER HYPERLIPIDEMIA 09/02/2019 ISAAK VANCE FACC, ALI FACP CCDS Ot 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 09/02/2019 ISAAK VANCE FACC, ALI FACP CCDS Ot I25.82 CHRONIC TOTAL OCCLUSION OF CORONARY [place] 09/02/2019 ISAAK VANCE FACC, ALI FACP CCDS Ot I48.3 TYPICAL ATRIAL FLUTTER 09/02/2019 DEANA MULLIGAN MD, FACC FACP CCDS Ot I48.91 UNSPECIFIED ATRIAL FIBRILLATION 09/02/2019 ISAAK VANCE FACC, DEANA FACP CCDS Ot 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 09/02/2019 ISAAK VANCE FACC ALI FACP CCDS Ot Z68.35 BODY MASS INDEX (BMI) 35.0-35.9, ADULT 09/02/2019 DEANA MULLIGAN MD, FACC FACP CCDS Ot Z79.01 ALF (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 OF ANTICOAGULANT 09/02/2019 DEANA MULLIGAN MD, FACC FACP CCDS Ot Z79.84 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 (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 OF ORAL HYPOGLYC 09/02/2019 DEANA MULLIGAN MD, FACC FACP CCDS Ot Z79.899 OTHER ALF (CURRENT) DRUG THERAPY 09/02/2019 DEANA MULLIGAN MD, FACC FACP CCDS Ot Z87.891 PERSONAL HISTORY OF NICOTINE DEPENDENCE 09/02/2019 DEANA MULLIGAN MD, FACC FACP CCDS Ot Z95.5 PRESENCE OF CORONARY ANGIOPLASTY IMPLANT 09/02/2019 ISAAK VANCE FACC ALI FACP CCDS Ot Z96.659 PRESENCE OF UNSPECIFIED ARTIFICIAL KNEE 09/03/2019 DEANA MULLIGAN MD, FACC FACP CCDS Ot E11.9 TYPE 2 DIABETES MELLITUS WITHOUT COMPLIC 09/03/2019 ISAAK VANCE FACC ALI FACP CCDS Ot E66.9 OBESITY, UNSPECIFIED 09/03/2019 ISAAK VANCE FACC ALI FACP CCDS Ot E78.49 OTHER HYPERLIPIDEMIA 09/03/2019 ISAAK VNACE FACC, DEANA FACP CCDS Ot 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 09/03/2019 ISAAK VANCE FACC ALI FACP CCDS Ot I25.82 CHRONIC TOTAL OCCLUSION OF CORONARY [place] 09/03/2019 DEANA MULLIGAN MD, FACC FACP CCDS Ot I48.3 TYPICAL ATRIAL FLUTTER 09/03/2019 DEANA MULLIGAN MD, FACC FACP CCDS Ot I48.91 UNSPECIFIED ATRIAL FIBRILLATION 09/03/2019 DEANA MULLIGAN MD, FACC FACP CCDS Ot 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 09/03/2019 ISAAK VANCE FACC ALI FACP CCDS Ot Z68.35 BODY MASS INDEX (BMI) 35.0-35.9, ADULT 09/03/2019 DEANA MULLIGAN MD, FACC FACP CCDS Ot Z79.01 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 (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 OF ANTICOAGULANT 09/03/2019 DEANA MULLIGAN MD, FACC FACP CCDS Ot Z79.84 ALF (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 OF ORAL HYPOGLYC 09/03/2019 DEANA MULLIGAN MD, FACC FACP CCDS Ot 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 09/03/2019 DEANA MULLIGAN MD, FACC FACP CCDS Ot Z87.891 PERSONAL HISTORY OF NICOTINE DEPENDENCE 09/03/2019 DEANA MULLIGAN MD, FACC FACP CCDS Ot Z95.5 PRESENCE OF CORONARY ANGIOPLASTY IMPLANT 09/03/2019 DEANA MULLIGAN MD, FACC FACP CCDS Ot Z96.659 PRESENCE OF UNSPECIFIED ARTIFICIAL KNEE 09/03/2019 ISAAK VANCE FACC ALI FACP CCDS Ot E11.9 TYPE 2 DIABETES MELLITUS WITHOUT COMPLIC 09/03/2019 DEANA MULLIGAN MD, FACC FACP CCDS Ot E66.9 OBESITY, UNSPECIFIED 09/03/2019 DEANA MULLIGAN MD, FACC FACP CCDS Ot E78.49 OTHER HYPERLIPIDEMIA 09/03/2019 ISAAK VANCE FACC, ALI FACP CCDS Ot 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 09/03/2019 DEANA MULLIGAN MD, FACC FACP CCDS Ot I25.82 CHRONIC TOTAL OCCLUSION OF CORONARY [place] 09/03/2019 ISAAK VANCE FACC, ALI FACP CCDS Ot I48.3 TYPICAL ATRIAL FLUTTER 09/03/2019 DEANA MULLIGAN MD, FACC FACP CCDS Ot I48.91 UNSPECIFIED ATRIAL FIBRILLATION 09/03/2019 ISAAK VANCE FACC ALI FACP CCDS Ot 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 09/03/2019 ISAAK VANCE FACC ALI FACP CCDS Ot Z68.35 BODY MASS INDEX (BMI) 35.0-35.9, ADULT 09/03/2019 ISAAK VANCE FACC ALI FACP CCDS Ot Z79.01 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 (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 OF ANTICOAGULANT 09/03/2019 DEANA MULLIGAN MD, FACC FACP CCDS Ot Z79.84 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 (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 OF ORAL HYPOGLYC 09/03/2019 ISAAK VANCE FACC ALI FACP CCDS Ot Z79.899 OTHER ALF (CURRENT) DRUG THERAPY 09/03/2019 DEANA MULLIGAN MD, FACC FACP CCDS Ot Z87.891 PERSONAL HISTORY OF NICOTINE DEPENDENCE 09/03/2019 ISAAK VANCE FACC, DEANA FACP CCDS Ot Z95.5 PRESENCE OF CORONARY ANGIOPLASTY IMPLANT 09/03/2019 ISAAK VANCE FACC, DEANA FACP CCDS Ot Z96.659 PRESENCE OF UNSPECIFIED ARTIFICIAL KNEE 09/07/2019 ISAAK VANCE FACC, DEANA FACP CCDS Ot E11.9 TYPE 2 DIABETES MELLITUS WITHOUT COMPLIC 09/07/2019 ISAAK VANCE FACC, DEANA FACP CCDS Ot E66.9 OBESITY, UNSPECIFIED 09/07/2019 DEANA MULLIGAN MD, FACC FACP CCDS Ot E78.49 OTHER HYPERLIPIDEMIA 09/07/2019 ISAAK VANCE FACC, DEANA FACP CCDS Ot 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 09/07/2019 DEANA MULLIGAN MD, FACC FACP CCDS Ot I25.82 CHRONIC TOTAL OCCLUSION OF CORONARY [place] 09/07/2019 DEANA MULLIGAN MD, FACC FACP CCDS Ot I48.3 TYPICAL ATRIAL FLUTTER 09/07/2019 ISAAK VANCE FACC, DEANA FACP CCDS Ot I48.91 UNSPECIFIED ATRIAL FIBRILLATION 09/07/2019 ISAAK VANCE FACC, DEANA FACP CCDS Ot 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 09/07/2019 DEANA MULLIGAN MD, FACC FACP CCDS Ot Z68.35 BODY MASS INDEX (BMI) 35.0-35.9, ADULT 09/07/2019 DEANA MULLIGAN MD, FACC FACP CCDS Ot Z79.01 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 (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 OF ANTICOAGULANT 09/07/2019 DEANA MULLIGAN MD, FACC FACP CCDS Ot Z79.84 ALF (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 OF ORAL HYPOGLYC 09/07/2019 DEANA MULLIGAN MD, FACC FACP CCDS Ot Z79.899 OTHER ALF (CURRENT) DRUG THERAPY 09/07/2019 DEANA MULLIGAN MD, FACC FACP CCDS Ot Z87.891 PERSONAL HISTORY OF NICOTINE DEPENDENCE 09/07/2019 DEANA MULLIGAN MD, FACC FACP CCDS Ot Z95.5 PRESENCE OF CORONARY ANGIOPLASTY IMPLANT 09/07/2019 ISAAK VANCE FACC ALI FACP CCDS Ot Z96.659 PRESENCE OF UNSPECIFIED ARTIFICIAL KNEE 2019 DEANA MULLIGAN MD, FACC FACP CCDS Ot E11.9 TYPE 2 DIABETES MELLITUS WITHOUT COMPLIC 2019 ISAAK VANCE FACC, DEANA FACP CCDS Ot E66.9 OBESITY, UNSPECIFIED 2019 ISAAK VANCE FACC, ALI FACP CCDS Ot E78.49 OTHER HYPERLIPIDEMIA 2019 ISAAK VANCE FACC, DEANA FACP CCDS Ot 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 2019 ISAAK VANCE FACC, DEANA FACP CCDS Ot I25.82 CHRONIC TOTAL OCCLUSION OF CORONARY [place] 2019 DEANA MULLIGAN MD, FACC FACP CCDS Ot I48.3 TYPICAL ATRIAL FLUTTER 2019 ISAAK VANCE FACC, DEANA FACP CCDS Ot I48.91 UNSPECIFIED ATRIAL FIBRILLATION 2019 DEANA MULLIGAN MD, FACC FACP CCDS Ot 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 2019 DEANA MULLIGAN MD, FACC FACP CCDS Ot Z68.35 BODY MASS INDEX (BMI) 35.0-35.9, ADULT 2019 DEANA MULLIGAN MD, FACC FACP CCDS Ot Z79.01 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 (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 OF ANTICOAGULANT 2019 DEANA MULLIGAN MD, FACC FACP CCDS Ot Z79.84 ALF (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 OF ORAL HYPOGLYC 2019 DEANA MULLIGAN MD, FACC FACP CCDS Ot Z79.899 OTHER ALF (CURRENT) DRUG THERAPY 2019 DEANA MULLIGAN MD, FACC FACP CCDS Ot Z87.891 PERSONAL HISTORY OF NICOTINE DEPENDENCE 2019 ISAAK VANCE FACC ALI FACP CCDS Ot Z95.5 PRESENCE OF CORONARY ANGIOPLASTY IMPLANT 2019 DEANA MULLIGAN MD, FACC FACP CCDS Ot Z96.659 PRESENCE OF UNSPECIFIED ARTIFICIAL KNEE 09/10/2019 ISAAK VANCE FACC, ALI FACP CCDS Ot E11.9 TYPE 2 DIABETES MELLITUS WITHOUT COMPLIC 09/10/2019 DEANA MULLIGAN MD, FACC FACP CCDS Ot E66.9 OBESITY, UNSPECIFIED 09/10/2019 ISAAK VANCE FACC ALI FACP CCDS Ot E78.49 OTHER HYPERLIPIDEMIA 09/10/2019 ISAAK VANCE FACC, ALI FACP CCDS Ot 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 09/10/2019 ISAAK VANCE FACC, DEANA FACP CCDS Ot I25.82 CHRONIC TOTAL OCCLUSION OF CORONARY [place] 09/10/2019 ISAAK VANCE FACC, ALI FACP CCDS Ot I48.3 TYPICAL ATRIAL FLUTTER 09/10/2019 ISAAK VANCE FACC, DEANA FACP CCDS Ot I48.91 UNSPECIFIED ATRIAL FIBRILLATION 09/10/2019 ISAAK VANCE FACC, DEANA FACP CCDS Ot 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 09/10/2019 ISAAK VANCE FACC, ALI FACP CCDS Ot Z68.35 BODY MASS INDEX (BMI) 35.0-35.9, ADULT 09/10/2019 DEANA MULLIGAN MD, FACC FACP CCDS Ot Z79.01 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 (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 OF ANTICOAGULANT 09/10/2019 DEANA MULLIGAN MD, FACC FACP CCDS Ot Z79.84 [employer] 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 (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 OF ORAL HYPOGLYC 09/10/2019 ISAAK VANCE FACC, DEANA FACP CCDS Ot 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 09/10/2019 ISAAK VANCE FACC, ALI FACP CCDS Ot Z87.891 PERSONAL HISTORY OF NICOTINE DEPENDENCE 09/10/2019 ISAAK VANCE FACC, ALI FACP CCDS Ot Z95.5 PRESENCE OF CORONARY ANGIOPLASTY IMPLANT 09/10/2019 ISAAK VANCE FACC, ALI FACP CCDS Ot Z96.659 PRESENCE OF UNSPECIFIED ARTIFICIAL KNEE 10/06/2019 DEREK KONG NURSE PRACTICAL Ot G47.10 HYPERSOMNIA, UNSPECIFIED 10/06/2019 DEREK KONG NURSE PRACTICAL Ot G47.50 PARASOMNIA, UNSPECIFIED 10/06/2019 DEREK KONG NURSE PRACTICAL Ot I48.0 PAROXYSMAL ATRIAL FIBRILLATION 10/06/2019 DEREK KONG NURSE PRACTICAL Ot J43.9 EMPHYSEMA, UNSPECIFIED 10/06/2019 DEREK KONG NURSE PRACTICAL Ot R05 COUGH 10/06/2019 DEREK KONG NURSE PRACTICAL Ot Z72.0 TOBACCO USE 10/06/2019 DEREK KONG NURSE PRACTICAL Ot Z95.5 PRESENCE OF CORONARY ANGIOPLASTY IMPLANT 10/06/2019 LUANN, DEREK E NURSE PRACTICAL Ot G47.10 HYPERSOMNIA, UNSPECIFIED 10/06/2019 LUANN, DEREK E NURSE PRACTICAL Ot G47.50 PARASOMNIA, UNSPECIFIED 10/06/2019 LUANN, DEREK E NURSE PRACTICAL Ot I48.0 PAROXYSMAL ATRIAL FIBRILLATION 10/06/2019 LUANN, DEREK E NURSE PRACTICAL Ot J43.9 EMPHYSEMA, UNSPECIFIED 10/06/2019 LUANN, DEREK E NURSE PRACTICAL Ot R05 COUGH 10/06/2019 LUANN, DEREK E NURSE PRACTICAL Ot Z72.0 TOBACCO USE 10/06/2019 LUANN, DEREK E NURSE PRACTICAL Ot Z95.5 PRESENCE OF CORONARY ANGIOPLASTY IMPLANT 10/09/2019 LUANN, DEREK E NURSE PRACTICAL Ot G47.10 HYPERSOMNIA, UNSPECIFIED 10/09/2019 LUANN, DEREK E NURSE PRACTICAL Ot G47.50 PARASOMNIA, UNSPECIFIED 10/09/2019 LUANN, DEREK E NURSE PRACTICAL Ot I48.0 PAROXYSMAL ATRIAL FIBRILLATION 10/09/2019 LUANN, DEREK E NURSE PRACTICAL Ot J43.9 EMPHYSEMA, UNSPECIFIED 10/09/2019 LUANN, DEREK E NURSE PRACTICAL Ot R05 COUGH 10/09/2019 LUANN, DEREK E NURSE PRACTICAL Ot Z72.0 TOBACCO USE 10/09/2019 LUANN, DEREK E NURSE PRACTICAL Ot Z95.5 PRESENCE OF CORONARY ANGIOPLASTY IMPLANT 10/27/2019 LUANN, DEREK E NURSE PRACTICAL Ot G47.10 HYPERSOMNIA, UNSPECIFIED 10/27/2019 LUANN, DEREK E NURSE PRACTICAL Ot G47.10 HYPERSOMNIA, UNSPECIFIED 10/27/2019 LUANN, DEREK E NURSE PRACTICAL Ot G47.50 PARASOMNIA, UNSPECIFIED 10/27/2019 LUANN, DEREK E NURSE PRACTICAL Ot I48.0 PAROXYSMAL ATRIAL FIBRILLATION 10/27/2019 LUANN, DEREK E NURSE PRACTICAL Ot J44.9 CHRONIC OBSTRUCTIVE PULMONARY DISEASE, U 10/27/2019 LUANN, DEREK E NURSE PRACTICAL Ot Z72.0 TOBACCO USE Procedures Code Description Performed By Per formed On 796192H DI LATION OF 1 COR ART WITH DRUG-ELUT INT 04/30/2017 [id number] ME ASURE OF CARDIAC SAMPL PRESSURE, L H 04/30/2017 [id number] ME ASUREMENT OF ARTERIAL PRESSURE, CENTENO 04/30/2017 [id number] FL UOROSCOPY OF MULT COR ART USING L OSM 04/30/2017 [id number] FL UOROSCOPY OF R LOW EXTREM ART USING L 04/30/2017 [id number] DI LATION OF 1 COR ART WITH DRUG-ELUT INT 05/01/2017 [id number] FL UOROSCOPY OF SINGLE CORONARY ARTERY US 05/01/2017 [id number] FL UOROSCOPY OF AORTA, BI LE ART USING L 05/01/2017 [id number] FL UOROSCOPY OF R LOW EXTREM ART USING L 05/01/2017 Results Test Result Range Serum or plasma ethanol measurement (mas s/volume) - 08/03/16 19:30 Serum or plasma ethanol measurement (mass/volume) 99 mg/dL <10 Complete blood count (CBC) with automate d white blood cell (WBC) differential - 08/03/16 19:35 Blood leukocytes automated count (number/volume) 11.6 10*3/uL 4.3-11.0 Blood erythrocytes automated count (number/volume) 4.77 10*6/uL 4.35-5.85 Venous blood hemoglobin measurement (mass/volume) 13.5 g/dL 13.3-17.7 Blood hematocrit (volume fraction) 40 % 40-54 Automated erythrocyte mean corpuscular volume 84 [ foz_us] 80-99 Automated erythrocyte mean corpuscular h emoglobin (mass per erythrocyte) 28 pg 25-34 Automated erythrocyte mean corpuscular h emoglobin concentration measurement (mass/volume) 34 g/dL 32-36 Automated erythrocyte distribution width ratio 13. 9 % 10.0- 14.5 Automated blood platelet count (count/volume) 338 10*3/uL [...] 10*3 1.0-4.0 Blood monocytes automated count (number/volume) 1. 0 10*3 0.0-1.0 Automated eosinophil count 0.4 10*3/uL 0 .0-0.3 Automated blood basophil count (count/volume) 0.0 10*3/uL 0.0-0.1 PT panel in platelet poor plasma by coag ulation assay - 08/03/16 19:35 Prothrombin time (PT) in platelet poor plasma by coagu lation assay 13.4 s 12.2-14.7 INR in platelet poor plasma or blood by coagulation as say 1.1 0.8-1.4 Activated partial thromboplastin time (a PTT) in platelet poor plasma bycoagulation assay - 08/03/16 19:35 Activated partial thromboplastin time (a PTT) in platelet poor plasma bycoagulation assay 32 s 24-35 Comprehensive metabolic panel - 08/03/16 19:35 Serum or plasma sodium measurement (moles/volume) 139 mmol/L 135-145 Serum or plasma potassium measurement (moles/volume) 3.2 mmol/L 3.6-5.0 Serum or plasma chloride measurement (moles/volume) 105 mmol/L 98-107 Carbon dioxide 24 mmol/L 21-32 Serum or plasma anion gap determination (moles/volume) 10 mmol/L 5-14 Serum or plasma urea nitrogen measurement (mass/volume ) 14 mg/dL 7-18 Serum or plasma creatinine measurement (mass/volume) 0.87 mg/dL 0.60-1.30 Serum or plasma urea nitrogen/creatinine mass ratio 16 NRG Serum or plasma creatinine measurement w ith calculation of estimated glomerular filtration rate > NRG Serum or plasma glucose measurement (mass/volume) 158 mg/dL 70-105 Serum or plasma calcium measurement (mass/volume) 9.7 mg/dL 8.5-10.1 Serum or plasma total bilirubin measurement (mass/volu me) 0.2 mg/dL 0.1-1.0 Serum or plasma alkaline phosphatase yuridia surement (enzymatic activity/volume) 65 U/L 40-136 Serum or plasma aspartate aminotransfera se measurement (enzymatic activity/volume) 47 U/L 5-34 Serum or plasma alanine aminotransferase measurement (enzymatic activity/volume) 59 U/L 0-55 Serum or plasma protein measurement (mass/volume) 7.5 g/dL 6.4-8.2 Serum or plasma albumin measurement (mass/volume) 4.3 g/dL 3.2-4.5 Magnesium - 08/03/16 19:35 Magnesium 2.0 mg/dL 1.8-2.4 Serum or plasma creatine kinase measurem ent (enzymatic activity/volume) - 08/03/16 19:35 Serum or plasma creatine kinase measurem ent (enzymatic activity/volume) 124 U/L 30-200 Serum or plasma creatine kinase MB measu rement (enzymatic activity/volume) - 08/03/16 19:35 Serum or plasma creatine kinase MB measu rement (enzymatic activity/volume) 0.8 ng/mL <6.6 Serum or plasma troponin i.cardiac measu rement (mass/volume) - 08/03/16 19:35 Serum or plasma troponin i.cardiac measurement (mass/v olume) < ng/mL <0.30 Serum or plasma lithium measurement (mol es/volume) - 08/03/16 19:35 BNP level 11.1 pg/mL <100.0 Serum or plasma amylase measurement (enz ymatic activity/volume) - 08/03/16 19:35 Serum or plasma amylase measurement (enzymatic activit y/volume) 54 U/L 25-125 Lipase - 08/03/16 19:35 Lipase 54 U/L 8-78 Serum or plasma thyrotropin measurement by detection limit <=0.05 miu/l (units/volume) - 08/03/16 19:35 Serum or plasma thyrotropin measurement by detection limit <=0.05 miu/l (units/volume) 2.30 u[iU]/mL 0.35-4.94 Complete blood count (CBC) with automate d white blood cell (WBC) differential - 08/18/16 14:20 Blood leukocytes automated count (number/volume) 12.0 10*3/uL 4.3-11.0 Blood erythrocytes automated count (number/volume) 5.22 10*6/uL 4.35-5.85 Venous blood hemoglobin measurement (mass/volume) 14.7 g/dL 13.3-17.7 Blood hematocrit (volume fraction) 44 % 40-54 Automated erythrocyte mean corpuscular volume 83 [ foz_us] 80-99 Automated erythrocyte mean corpuscular h emoglobin (mass per erythrocyte) 28 pg 25-34 Automated erythrocyte mean corpuscular h emoglobin concentration measurement (mass/volume) 34 g/dL 32-36 Automated erythrocyte distribution width ratio 14. 2 % 10.0- 14.5 Automated blood platelet count (count/volume) 368 10*3/uL [...] 10*3 1.0-4.0 Blood monocytes automated count (number/volume) 0. 8 10*3 0.0-1.0 Automated eosinophil count 0.7 10*3/uL 0 .0-0.3 Automated blood basophil count (count/volume) 0.0 10*3/uL 0.0-0.1 Comprehensive metabolic panel - 08/18/16 14:20 Serum or plasma sodium measurement (moles/volume) 135 mmol/L 135-145 Serum or plasma potassium measurement (moles/volume) 4.3 mmol/L 3.6-5.0 Serum or plasma chloride measurement (moles/volume) 101 mmol/L 98-107 Carbon dioxide 23 mmol/L 21-32 Serum or plasma anion gap determination (moles/volume) 11 mmol/L 5-14 Serum or plasma urea nitrogen measurement (mass/volume ) 22 mg/dL 7-18 Serum or plasma creatinine measurement (mass/volume) 1.07 mg/dL 0.60-1.30 Serum or plasma urea nitrogen/creatinine mass ratio 21 NRG Serum or plasma creatinine measurement w ith calculation of estimated glomerular filtration rate > NRG Serum or plasma glucose measurement (mass/volume) 316 mg/dL 70-105 Serum or plasma calcium measurement (mass/volume) 9.3 mg/dL 8.5-10.1 Serum or plasma total bilirubin measurement (mass/volu me) 0.4 mg/dL 0.1-1.0 Serum or plasma alkaline phosphatase yuridia surement (enzymatic activity/volume) 83 U/L 40-136 Serum or plasma aspartate aminotransfera se measurement (enzymatic activity/volume) 54 U/L 5-34 Serum or plasma alanine aminotransferase measurement (enzymatic activity/volume) 53 U/L 0-55 Serum or plasma protein measurement (mass/volume) 7.9 g/dL 6.4-8.2 Serum or plasma albumin measurement (mass/volume) 4.4 g/dL 3.2-4.5 Complete urinalysis with reflex to cultu re - 08/18/16 14:30 Urine color determination YELLOW NRG Urine clarity determination VERY CLOUDY NRG Urine pH measurement by test strip 5 5-9 Specific gravity of urine by test strip 1.025 1.016-1.022 Urine protein assay by test strip, semi-quantitative 3+ NEGATIVE Urine glucose detection by automated test strip 4+ NEGATIVE Erythrocytes detection in urine sediment by light micr oscopy 5+ NEGATIVE Urine ketones detection by automated test strip 1+ NEGATIVE Urine nitrite detection by test strip POSITIVE NEGATIVE Urine total bilirubin detection by test strip 1+ NEGATIVE Urine urobilinogen measurement by automated test strip (mass/volume) 1 mg/dL NORMAL Urine leukocyte esterase detection by dipstick 1+ NEGATIVE Automated urine sediment erythrocyte cou nt by microscopy (number/high power field) TNTC NRG Automated urine sediment leukocyte count by microscopy (number/high power field) [HPF] NRG Bacteria detection in urine sediment by light microsco py NEGATIVE NRG Crystals detection in urine sediment by light microsco py PRESENT NRG Casts detection in urine sediment by light microscopy NONE NRG Mucus detection in urine sediment by light microscopy NEGATIVE NRG Complete urinalysis with reflex to culture NO NRG Amorphous sediment detection in urine sediment by ligh t microscopy LARGE ALICIA URATES NRG Complete blood count (CBC) with automate d white blood cell (WBC) differential - 04/30/17 15:40 Blood leukocytes automated count (number/volume) 13.9 10*3/uL 4.3-11.0 Blood erythrocytes automated count (number/volume) 5.48 10*6/uL 4.35-5.85 Venous blood hemoglobin measurement (mass/volume) 14.7 g/dL 13.3-17.7 Blood hematocrit (volume fraction) 44 % 40-54 Automated erythrocyte mean corpuscular volume 81 [ foz_us] 80-99 Automated erythrocyte mean corpuscular h emoglobin (mass per erythrocyte) 27 pg 25-34 Automated erythrocyte mean corpuscular h emoglobin concentration measurement (mass/volume) 33 g/dL 32-36 Automated erythrocyte distribution width ratio 14. 1 % 10.0- 14.5 Automated blood platelet count (count/volume) 364 10*3/uL [...] 10*3 1.0-4.0 Blood monocytes automated count (number/volume) 1. 1 10*3 0.0-1.0 Automated eosinophil count 0.2 10*3/uL 0 .0-0.3 Automated blood basophil count (count/volume) 0.0 10*3/uL 0.0-0.1 PT panel in platelet poor plasma by coag ulation assay - 04/30/17 15:40 Prothrombin time (PT) in platelet poor plasma by coagu lation assay 14.2 s 12.2-14.7 INR in platelet poor plasma or blood by coagulation as say 1.1 0.8-1.4 Activated partial thromboplastin time (a PTT) in platelet poor plasma bycoagulation assay - 04/30/17 15:40 Activated partial thromboplastin time (a PTT) in platelet poor plasma bycoagulation assay 35 s 24-35 Fibrin D-dimer FEU measurement in platel et poor plasma (mass/volume) - 04/30/17 15:40 Fibrin D-dimer FEU measurement in platelet [...] 5-14 Serum or plasma urea nitrogen measurement (mass/volume ) 15 mg/dL 7-18 Serum or plasma creatinine measurement (mass/volume) 0.97 mg/dL 0.60-1.30 Serum or plasma urea nitrogen/creatinine mass ratio 15 NRG Serum or plasma creatinine measurement w ith calculation of estimated glomerular filtration rate > NRG Serum or plasma glucose measurement (mass/volume) 225 mg/dL 70-105 Serum or plasma calcium measurement (mass/volume) 9.6 mg/dL 8.5-10.1 Serum or plasma total bilirubin measurement (mass/volu me) 0.3 mg/dL 0.1-1.0 Serum or plasma alkaline phosphatase yuridia surement (enzymatic activity/volume) 93 U/L 40-136 Serum or plasma aspartate aminotransfera se measurement (enzymatic activity/volume) 34 U/L 5-34 Serum or plasma alanine aminotransferase measurement (enzymatic activity/volume) 24 U/L 0-55 Serum or plasma protein measurement (mass/volume) 7.6 g/dL 6.4-8.2 Serum or plasma albumin measurement (mass/volume) 4.1 g/dL 3.2-4.5 Magnesium - 04/30/17 15:40 Magnesium 1.8 mg/dL 1.8-2.4 Serum or plasma troponin i.cardiac measu rement (mass/volume) - 04/30/17 15:40 Serum or plasma troponin i.cardiac measurement (mass/v olume) 2.71 ng/mL <0.30 Myoglobin, serum - 04/30/17 15:40 Myoglobin, serum 71.5 ng/mL 10.0-92.0 Bacterial blood culture - 04/30/17 18:00 Bacterial blood culture NG NRG Blood lactic acid measurement (moles/vol ume) - 04/30/17 18:21 Blood lactic acid measurement (moles/volume) 0.95 mmol/L 0.50-2.00 Bacterial blood culture - 04/30/17 18:21 Bacterial blood culture NG NRG Activated partial thromboplastin time (a PTT) in platelet poor plasma bycoagulation assay - 05/01/17 00:20 Activated partial thromboplastin time (a PTT) in platelet poor plasma bycoagulation assay 79 s 24-35 Complete blood count (CBC) with automate d white blood cell (WBC) differential - 05/01/17 02:03 Blood leukocytes automated count (number/volume) 10.7 10*3/uL 4.3-11.0 Blood erythrocytes automated count (number/volume) 4.94 10*6/uL 4.35-5.85 Venous blood hemoglobin measurement (mass/volume) 13.0 g/dL 13.3-17.7 Blood hematocrit (volume fraction) 40 % 40-54 Automated erythrocyte mean corpuscular volume 81 [ foz_us] 80-99 Automated erythrocyte mean corpuscular h emoglobin (mass per erythrocyte) 26 pg 25-34 Automated erythrocyte mean corpuscular h emoglobin concentration measurement (mass/volume) 32 g/dL 32-36 Automated erythrocyte distribution width ratio 14. 1 % 10.0- 14.5 Automated blood platelet count (count/volume) 326 10*3/uL [...] 10*3 1.0-4.0 Blood monocytes automated count (number/volume) 1. 0 10*3 0.0-1.0 Automated eosinophil count 0.2 10*3/uL 0 .0-0.3 Automated blood basophil count (count/volume) 0.0 10*3/uL 0.0-0.1 Activated partial thromboplastin time (a PTT) in platelet poor plasma bycoagulation assay - 05/01/17 02:03 Activated partial thromboplastin time (a PTT) in platelet poor plasma bycoagulation assay 34 s 24-35 Comprehensive metabolic panel - 05/01/17 02:03 Serum or plasma sodium measurement (moles/volume) 138 mmol/L 135-145 Serum or plasma potassium measurement (moles/volume) 4.0 mmol/L 3.6-5.0 Serum or plasma chloride measurement (moles/volume) 104 mmol/L 98-107 Carbon dioxide 19 mmol/L 21-32 Serum or plasma anion gap determination (moles/volume) 15 mmol/L 5-14 Serum or plasma urea nitrogen measurement (mass/volume ) 12 mg/dL 7-18 Serum or plasma creatinine measurement (mass/volume) 1.00 mg/dL 0.60-1.30 Serum or plasma urea nitrogen/creatinine mass ratio 12 NRG Serum or plasma creatinine measurement w ith calculation of estimated glomerular filtration rate > NRG Serum or plasma glucose measurement (mass/volume) 126 mg/dL 70-105 Serum or plasma calcium measurement (mass/volume) 8.5 mg/dL 8.5-10.1 Serum or plasma total bilirubin measurement (mass/volu me) 0.5 mg/dL 0.1-1.0 Serum or plasma alkaline phosphatase yuridia surement (enzymatic activity/volume) 84 U/L 40-136 Serum or plasma aspartate aminotransfera se measurement (enzymatic activity/volume) 39 U/L 5-34 Serum or plasma alanine aminotransferase measurement (enzymatic activity/volume) 24 U/L 0-55 Serum or plasma protein measurement (mass/volume) 6.8 g/dL 6.4-8.2 Serum or plasma albumin measurement (mass/volume) 3.7 g/dL 3.2-4.5 Serum or plasma phosphate measurement (m ass/volume) - 05/01/17 02:03 Serum or plasma phosphate measurement (mass/volume) 3.6 mg/dL 2.3-4.7 Magnesium - 05/01/17 02:03 Magnesium 1.7 mg/dL 1.8-2.4 Lipid 1996 panel - 05/01/17 02:03 Serum or plasma triglyceride measurement (mass/volume) 230 mg/dL <150 Serum or plasma cholesterol measurement (mass/volume) 124 mg/dL < 200 Serum or plasma cholesterol in HDL measurement (mass/v olume) 22 mg/dL 40-60 Cholesterol in LDL [mass/volume] in serum or plasma by direct assay 75 mg/dL 1-129 Serum or plasma cholesterol in VLDL measurement (mass/ volume) 46 mg/dL 5-40 Serum or plasma troponin i.cardiac measu rement (mass/volume) - 05/01/17 02:03 Serum or plasma troponin i.cardiac measurement (mass/v olume) 12.91 ng/mL <0.30 Capillary blood glucose measurement by g lucometer (mass/volume) - 05/01/17 11:16 Capillary blood glucose measurement by glucometer (mas s/volume) 168 mg/dL 70-110 Capillary blood glucose measurement by g lucometer (mass/volume) - 05/01/17 16:03 Capillary blood glucose measurement by glucometer (mas s/volume) 222 mg/dL 70-110 Capillary blood glucose measurement by g lucometer (mass/volume) - 05/01/17 21:18 Capillary blood glucose measurement by glucometer (mas s/volume) 147 mg/dL 70-110 Complete blood count (CBC) with automate d white blood cell (WBC) differential - 05/02/17 03:34 Blood leukocytes automated count (number/volume) 10.1 10*3/uL 4.3-11.0 Blood erythrocytes automated count (number/volume) 4.34 10*6/uL 4.35-5.85 Venous blood hemoglobin measurement (mass/volume) 11.5 g/dL 13.3-17.7 Blood hematocrit (volume fraction) 35 % 40-54 Automated erythrocyte mean corpuscular volume 82 [ foz_us] 80-99 Automated erythrocyte mean corpuscular h emoglobin (mass per erythrocyte) 27 pg 25-34 Automated erythrocyte mean corpuscular h emoglobin concentration measurement (mass/volume) 33 g/dL 32-36 Automated erythrocyte distribution width ratio 14. 0 % 10.0- 14.5 Automated blood platelet count (count/volume) 289 10*3/uL [...] 10*3 1.0-4.0 Blood monocytes automated count (number/volume) 0. 8 10*3 0.0-1.0 Automated eosinophil count 0.2 10*3/uL 0 .0-0.3 Automated blood basophil count (count/volume) 0.0 10*3/uL 0.0-0.1 Whole blood basic metabolic panel - 04/08 03/24 03:34 Serum or plasma sodium measurement (moles/volume) 138 mmol/L 135-145 Serum or plasma potassium measurement (moles/volume) 4.1 mmol/L 3.6-5.0 Serum or plasma chloride measurement (moles/volume) 106 mmol/L 98-107 Carbon dioxide 23 mmol/L 21-32 Serum or plasma anion gap determination (moles/volume) 9 mmol/L 5-14 Serum or plasma urea nitrogen measurement (mass/volume ) 11 mg/dL 7-18 Serum or plasma creatinine measurement (mass/volume) 0.91 mg/dL 0.60-1.30 Serum or plasma urea nitrogen/creatinine mass ratio 12 NRG Serum or plasma creatinine measurement w ith calculation of estimated glomerular filtration rate > NRG Serum or plasma glucose measurement (mass/volume) 133 mg/dL 70-105 Serum or plasma calcium measurement (mass/volume) 8.5 mg/dL 8.5-10.1 Serum or plasma phosphate measurement (m ass/volume) - 05/02/17 03:34 Serum or plasma phosphate measurement (mass/volume) 4.5 mg/dL 2.3-4.7 Magnesium - 05/02/17 03:34 Magnesium 1.8 mg/dL 1.8-2.4 Serum or plasma troponin i.cardiac measu rement (mass/volume) - 05/02/17 03:34 Serum or plasma troponin i.cardiac measurement (mass/v olume) 3.87 ng/mL <0.30 Comprehensive metabolic panel - 06/12/17 07:45 Serum or plasma sodium measurement (moles/volume) 139 mmol/L 135-145 Serum or plasma potassium measurement (moles/volume) 4.1 mmol/L 3.6-5.0 Serum or plasma chloride measurement (moles/volume) 103 mmol/L 98-107 Carbon dioxide 24 mmol/L 21-32 Serum or plasma anion gap determination (moles/volume) 12 mmol/L 5-14 Serum or plasma urea nitrogen measurement (mass/volume ) 15 mg/dL 7-18 Serum or plasma creatinine measurement (mass/volume) 0.93 mg/dL 0.60-1.30 Serum or plasma urea nitrogen/creatinine mass ratio 16 NRG Serum or plasma creatinine measurement w ith calculation of estimated glomerular filtration rate > NRG Serum or plasma glucose measurement (mass/volume) 143 mg/dL 70-105 Serum or plasma calcium measurement (mass/volume) 9.3 mg/dL 8.5-10.1 Serum or plasma total bilirubin measurement (mass/volu me) 0.4 mg/dL 0.1-1.0 Serum or plasma alkaline phosphatase yuridia surement (enzymatic activity/volume) 97 U/L 40-136 Serum or plasma aspartate aminotransfera se measurement (enzymatic activity/volume) 14 U/L 5-34 Serum or plasma alanine aminotransferase measurement (enzymatic activity/volume) 16 U/L 0-55 Serum or plasma protein measurement (mass/volume) 7.2 g/dL 6.4-8.2 Serum or plasma albumin measurement (mass/volume) 3.9 g/dL 3.2-4.5 Lipid 1996 panel - 06/12/17 07:45 Serum or plasma triglyceride measurement (mass/volume) 407 mg/dL <150 Serum or plasma cholesterol measurement (mass/volume) 153 mg/dL < 200 Serum or plasma cholesterol in HDL measurement (mass/v olume) 26 mg/dL 40-60 Cholesterol in LDL [mass/volume] in serum or plasma by direct assay 72 mg/dL 1-129 Serum or plasma cholesterol in VLDL measurement (mass/ volume) 81 mg/dL 5-40 Automated blood complete blood count ( mogram) panel - 07/23/18 07:10 Blood leukocytes automated count (number/volume) 11.6 10*3/uL 4.3-11.0 Blood erythrocytes automated count (number/volume) 5.48 10*6/uL 4.35-5.85 Venous blood hemoglobin measurement (mass/volume) 14.8 g/dL 13.3-17.7 Blood hematocrit (volume fraction) 43 % 40-54 Automated erythrocyte mean corpuscular volume 78 [ foz_us] 80-99 Automated erythrocyte mean corpuscular h emoglobin (mass per erythrocyte) 27 pg 25-34 Automated erythrocyte mean corpuscular h emoglobin concentration measurement (mass/volume) 35 g/dL 32-36 Automated erythrocyte distribution width ratio 14. 9 % 10.0- 14.5 Automated blood platelet count (count/volume) 392 10*3/uL 130-400 Automated blood platelet mean volume measurement 10.2 [foz_us] 7.4-10.4 PT panel in platelet poor plasma by coag ulation assay - 07/23/18 07:10 Prothrombin time (PT) in platelet poor plasma by coagu lation assay 13.1 s 12.2-14.7 INR in platelet poor plasma or blood by coagulation as say 1.0 0.8-1.4 Activated partial thromboplastin time (a PTT) in platelet poor plasma bycoagulation assay - 07/23/18 07:10 Activated partial thromboplastin time (a PTT) in platelet poor plasma bycoagulation assay 33 s 24-35 Comprehensive metabolic panel - 07/23/18 07:10 Serum or plasma sodium measurement (moles/volume) 135 mmol/L 135-145 Serum or plasma potassium measurement (moles/volume) 3.9 mmol/L 3.6-5.0 Serum or plasma chloride measurement (moles/volume) 104 mmol/L 98-107 Carbon dioxide 20 mmol/L 21-32 Serum or plasma anion gap determination (moles/volume) 11 mmol/L 5-14 Serum or plasma urea nitrogen measurement (mass/volume ) 22 mg/dL 7-18 Serum or plasma creatinine measurement (mass/volume) 1.04 mg/dL 0.60-1.30 Serum or plasma urea nitrogen/creatinine mass ratio 21 NRG Serum or plasma creatinine measurement w ith calculation of estimated glomerular filtration rate > NRG Serum or plasma glucose measurement (mass/volume) 220 mg/dL 70-105 Serum or plasma calcium measurement (mass/volume) 9.5 mg/dL 8.5-10.1 Serum or plasma total bilirubin measurement (mass/volu me) 0.5 mg/dL 0.1-1.0 Serum or plasma alkaline phosphatase yuridia surement (enzymatic activity/volume) 90 U/L 40-136 Serum or plasma aspartate aminotransfera se measurement (enzymatic activity/volume) 13 U/L 5-34 Serum or plasma alanine aminotransferase measurement (enzymatic activity/volume) 21 U/L 0-55 Serum or plasma protein measurement (mass/volume) 8.1 g/dL 6.4-8.2 Serum or plasma albumin measurement (mass/volume) 4.5 g/dL 3.2-4.5 CALCIUM CORRECTED 9.1 mg/dL 8.5-10.1 Lipid 1996 panel - 07/23/18 07:10 Serum or plasma triglyceride measurement (mass/volume) 305 mg/dL <150 Serum or plasma cholesterol measurement (mass/volume) 183 mg/dL < 200 Serum or plasma cholesterol in HDL measurement (mass/v olume) 29 mg/dL 40-60 Cholesterol in LDL [mass/volume] in serum or plasma by direct assay 90 mg/dL 1-129 Serum or plasma cholesterol in VLDL measurement (mass/ volume) 61 mg/dL 5-40 Methicillin resistant Staphylococcus aur eus (MRSA) screening culture - 07/23/18 07:10 Methicillin resistant Staphylococcus aureus (MRSA) scr eening culture NEG NRG Capillary blood glucose measurement by g lucometer (mass/volume) - 07/23/18 20:27 Capillary blood glucose measurement by glucometer (mas s/volume) 238 mg/dL 70-110 Automated blood complete blood count (he mogram) panel - 07/24/18 03:50 Blood leukocytes automated count (number/volume) 10.2 10*3/uL 4.3-11.0 Blood erythrocytes automated count (number/volume) 4.65 10*6/uL 4.35-5.85 Venous blood hemoglobin measurement (mass/volume) 12.8 g/dL 13.3-17.7 Blood hematocrit (volume fraction) 37 % 40-54 Automated erythrocyte mean corpuscular volume 79 [ foz_us] 80-99 Automated erythrocyte mean corpuscular h emoglobin (mass per erythrocyte) 28 pg 25-34 Automated erythrocyte mean corpuscular h emoglobin concentration measurement (mass/volume) 35 g/dL 32-36 Automated erythrocyte distribution width ratio 14. 8 % 10.0- 14.5 Automated blood platelet count (count/volume) 303 10*3/uL 130-400 Automated blood platelet mean volume measurement 10.3 [foz_us] 7.4-10.4 Whole blood basic metabolic panel - 07/08 04/24 03:50 Serum or plasma sodium measurement (moles/volume) 136 mmol/L 135-145 Serum or plasma potassium measurement (moles/volume) 3.9 mmol/L 3.6-5.0 Serum or plasma chloride measurement (moles/volume) 106 mmol/L 98-107 Carbon dioxide 19 mmol/L 21-32 Serum or plasma anion gap determination (moles/volume) 11 mmol/L 5-14 Serum or plasma urea nitrogen measurement (mass/volume ) 13 mg/dL 7-18 Serum or plasma creatinine measurement (mass/volume) 0.81 mg/dL 0.60-1.30 Serum or plasma urea nitrogen/creatinine mass ratio 16 NRG Serum or plasma creatinine measurement w ith calculation of estimated glomerular filtration rate > NRG Serum or plasma glucose measurement (mass/volume) 169 mg/dL 70-105 Serum or plasma calcium measurement (mass/volume) 8.9 mg/dL 8.5-10.1 Complete blood count (CBC) with automate d white blood cell (WBC) differential - 12/16/18 07:56 Blood leukocytes automated count (number/volume) 6.9 10*3/uL 4.3-11.0 Blood erythrocytes automated count (number/volume) 5.24 10*6/uL 4.35-5.85 Venous blood hemoglobin measurement (mass/volume) 14.6 g/dL 13.3-17.7 Blood hematocrit (volume fraction) 41 % 40-54 Automated erythrocyte mean corpuscular volume 77 [ foz_us] 80-99 Automated erythrocyte mean corpuscular h emoglobin (mass per erythrocyte) 28 pg 25-34 Automated erythrocyte mean corpuscular h emoglobin concentration measurement (mass/volume) 36 g/dL 32-36 Automated erythrocyte distribution width ratio 14. 6 % 10.0- 14.5 Automated blood platelet count (count/volume) 276 10*3/uL [...] 10*3 1.0-4.0 Blood monocytes automated count (number/volume) 0. 8 10*3 0.0-1.0 Automated eosinophil count 0.2 10*3/uL 0 .0-0.3 Automated blood basophil count (count/volume) 0.0 10*3/uL 0.0-0.1 Comprehensive metabolic panel - 12/16/18 07:56 Serum or plasma sodium measurement (moles/volume) 131 mmol/L 135-145 Serum or plasma potassium measurement (moles/volume) 4.5 mmol/L 3.6-5.0 Serum or plasma chloride measurement (moles/volume) 96 mmol/L 98-107 Carbon dioxide 15 mmol/L 21-32 Serum or plasma anion gap determination (moles/volume) 20 mmol/L 5-14 Serum or plasma urea nitrogen measurement (mass/volume ) 14 mg/dL 7-18 Serum or plasma creatinine measurement (mass/volume) 1.06 mg/dL 0.60-1.30 Serum or plasma urea nitrogen/creatinine mass ratio 13 NRG Serum or plasma creatinine measurement w ith calculation of estimated glomerular filtration rate > NRG Serum or plasma glucose measurement (mass/volume) 550 mg/dL 70-105 Serum or plasma calcium measurement (mass/volume) 9.1 mg/dL 8.5-10.1 Serum or plasma total bilirubin measurement (mass/volu me) 0.3 mg/dL 0.1-1.0 Serum or plasma alkaline phosphatase yuridia surement (enzymatic activity/volume) 93 U/L 40-136 Serum or plasma aspartate aminotransfera se measurement (enzymatic activity/volume) 19 U/L 5-34 Serum or plasma alanine aminotransferase measurement (enzymatic activity/volume) 17 U/L 0-55 Serum or plasma protein measurement (mass/volume) 8.1 g/dL 6.4-8.2 Serum or plasma albumin measurement (mass/volume) 4.1 g/dL 3.2-4.5 CALCIUM CORRECTED 9.0 mg/dL 8.5-10.1 Magnesium - 12/16/18 07:56 Magnesium 2.6 mg/dL 1.8-2.4 Serum or plasma troponin i.cardiac measu rement (mass/volume) - 12/16/18 07:56 Serum or plasma troponin i.cardiac measurement (mass/v olume) < ng/mL <0.028 Myoglobin, serum - 12/16/18 07:56 Myoglobin, serum 21.3 ng/mL 10.0-92.0 PT panel in platelet poor plasma by coag ulation assay - 12/16/18 07:56 Prothrombin time (PT) in platelet poor plasma by coagu lation assay 13.5 s 12.2-14.7 INR in platelet poor plasma or blood by coagulation as say 1.0 0.8-1.4 Activated partial thromboplastin time (a PTT) in platelet poor plasma bycoagulation assay - 12/16/18 07:56 Activated partial thromboplastin time (a PTT) in platelet poor plasma bycoagulation assay 35 s 24-35 Hemoglobin A1c - 12/16/18 07:56 Blood hemoglobin A1C measurement (mass/volume) 14. 0 % 4.0- 5.6 MEAN BLOOD GLUCOSE 355 % <=126 Capillary blood glucose measurement by g lucometer (mass/volume) - 12/16/18 07:58 Capillary blood glucose measurement by glucometer (mas s/volume) 508 mg/dL 70-110 Urine drug screening test - 12/16/18 08: 43 Urine phencyclidine detection by screening method NEGATIVE NEGATIVE Urine benzodiazepines detection by screening method NEGATIVE NEGATIVE Urine cocaine detection NEGATIVE NEGATI VE Urine amphetamines detection by screening method N EGATIVE NEGATIVE Urine methamphetamine detection by screening method NEGATIVE NEGATIVE Urine cannabinoids detection by screening method N EGATIVE NEGATIVE Urine opiates detection by screening method NEGATI VE NEGATIVE Urine barbiturates detection NEGATIVE N EGATIVE Screening urine tricyclic antidepressants detection NEGATIVE NEGATIVE Urine methadone detection by screening method NEGA TIVE NEGATIVE Urine oxycodone detection NEGATIVE NEGA TIVE Urine propoxyphene detection NEGATIVE N EGATIVE Complete urinalysis with reflex to cultu re - 12/16/18 08:43 Urine color determination YELLOW NRG Urine clarity determination CLEAR NR G Urine pH measurement by test strip 5 5-9 Specific gravity of urine by test strip 1.015 1.016-1.022 Urine protein assay by test strip, semi-quantitative NEGATIVE NEGATIVE Urine glucose detection by automated test strip 4+ NEGATIVE Erythrocytes detection in urine sediment by light micr oscopy NEGATIVE NEGATIVE Urine ketones detection by automated test strip NE GATIVE NEGATIVE Urine nitrite detection by test strip NEGATIVE NEGATIVE Urine total bilirubin detection by test strip NEGA TIVE NEGATIVE Urine urobilinogen measurement by automated test strip (mass/volume) NORMAL NORMAL Urine leukocyte esterase detection by dipstick NEG ATIVE NEGATIVE Automated urine sediment erythrocyte cou nt by microscopy (number/high power field) NONE NRG Automated urine sediment leukocyte count by microscopy (number/high power field) NONE NRG Bacteria detection in urine sediment by light microsco py NEGATIVE NRG Crystals detection in urine sediment by light microsco py NONE NRG Casts detection in urine sediment by light microscopy NONE NRG Mucus detection in urine sediment by light microscopy NEGATIVE NRG Complete urinalysis with reflex to culture NO NRG Capillary blood glucose measurement by g lucometer (mass/volume) - 12/16/18 08:56 Capillary blood glucose measurement by glucometer (mas s/volume) 506 mg/dL 70-110 Capillary blood glucose measurement by g lucometer (mass/volume) - 12/16/18 13:14 Capillary blood glucose measurement by glucometer (mas s/volume) 367 mg/dL 70-110 Capillary blood glucose measurement by g lucometer (mass/volume) - 12/16/18 16:16 Capillary blood glucose measurement by glucometer (mas s/volume) 356 mg/dL 70-110 Capillary blood glucose measurement by g lucometer (mass/volume) - 12/16/18 20:34 Capillary blood glucose measurement by glucometer (mas s/volume) 268 mg/dL 70-110 Complete blood count (CBC) with automate d white blood cell (WBC) differential - 12/17/18 03:25 Blood leukocytes automated count (number/volume) 7.1 10*3/uL 4.3-11.0 Blood erythrocytes automated count (number/volume) 5.05 10*6/uL 4.35-5.85 Venous blood hemoglobin measurement (mass/volume) 13.6 g/dL 13.3-17.7 Blood hematocrit (volume fraction) 40 % 40-54 Automated erythrocyte mean corpuscular volume 79 [ foz_us] 80-99 Automated erythrocyte mean corpuscular h emoglobin (mass per erythrocyte) 27 pg 25-34 Automated erythrocyte mean corpuscular h emoglobin concentration measurement (mass/volume) 34 g/dL 32-36 Automated erythrocyte distribution width ratio 14. 7 % 10.0- 14.5 Automated blood platelet count (count/volume) 235 10*3/uL [...] 10*3 1.0-4.0 Blood monocytes automated count (number/volume) 0. 6 10*3 0.0-1.0 Automated eosinophil count 0.2 10*3/uL 0 .0-0.3 Automated blood basophil count (count/volume) 0.0 10*3/uL 0.0-0.1 Whole blood basic metabolic panel - 12/06 11/26 03:25 Serum or plasma sodium measurement (moles/volume) 134 mmol/L 135-145 Serum or plasma potassium measurement (moles/volume) 3.8 mmol/L 3.6-5.0 Serum or plasma chloride measurement (moles/volume) 104 mmol/L 98-107 Carbon dioxide 17 mmol/L 21-32 Serum or plasma anion gap determination (moles/volume) 13 mmol/L 5-14 Serum or plasma urea nitrogen measurement (mass/volume ) 13 mg/dL 7-18 Serum or plasma creatinine measurement (mass/volume) 0.77 mg/dL 0.60-1.30 Serum or plasma urea nitrogen/creatinine mass ratio 17 NRG Serum or plasma creatinine measurement w ith calculation of estimated glomerular filtration rate > NRG Serum or plasma glucose measurement (mass/volume) 223 mg/dL 70-105 Serum or plasma calcium measurement (mass/volume) 8.9 mg/dL 8.5-10.1 Lipid 1996 panel - 12/17/18 03:25 Serum or plasma triglyceride measurement (mass/volume) 1729 mg/dL <150 Serum or plasma cholesterol measurement (mass/volume) 415 mg/dL < 200 Serum or plasma cholesterol in HDL measurement (mass/v olume) 24 mg/dL 40-60 Cholesterol in LDL [mass/volume] in serum or plasma by direct assay 55 mg/dL 1-129 Serum or plasma cholesterol in VLDL measurement (mass/ volume) 346 mg/dL 5-40 Capillary blood glucose measurement by g lucometer (mass/volume) - 12/17/18 05:47 Capillary blood glucose measurement by glucometer (mas s/volume) 231 mg/dL 70-110 Capillary blood glucose measurement by g lucometer (mass/volume) - 12/17/18 11:21 Capillary blood glucose measurement by glucometer (mas s/volume) 189 mg/dL 70-110 Capillary blood glucose measurement by g lucometer (mass/volume) - 12/17/18 15:51 Capillary blood glucose measurement by glucometer (mas s/volume) 202 mg/dL 70-110 Activated partial thromboplastin time (a PTT) in platelet poor plasma bycoagulation assay - 12/17/18 22:00 Activated partial thromboplastin time (a PTT) in platelet poor plasma bycoagulation assay 37 s 24-35 Capillary blood glucose measurement by g lucometer (mass/volume) - 12/17/18 23:38 Capillary blood glucose measurement by glucometer (mas s/volume) 252 mg/dL 70-110 Capillary blood glucose measurement by g lucometer (mass/volume) - 12/18/18 06:54 Capillary blood glucose measurement by glucometer (mas s/volume) 233 mg/dL 70-110 Complete blood count (CBC) with automate d white blood cell (WBC) differential - 01/08/19 03:53 Blood leukocytes automated count (number/volume) 11.3 10*3/uL 4.3-11.0 Blood erythrocytes automated count (number/volume) 5.29 10*6/uL 4.35-5.85 Venous blood hemoglobin measurement (mass/volume) 14.6 g/dL 13.3-17.7 Blood hematocrit (volume fraction) 42 % 40-54 Automated erythrocyte mean corpuscular volume 80 [ foz_us] 80-99 Automated erythrocyte mean corpuscular h emoglobin (mass per erythrocyte) 28 pg 25-34 Automated erythrocyte mean corpuscular h emoglobin concentration measurement (mass/volume) 35 g/dL 32-36 Automated erythrocyte distribution width ratio 14. 8 % 10.0- 14.5 Automated blood platelet count (count/volume) 297 10*3/uL 130-400 Automated blood platelet mean volume measurement 9.9 [foz_us] 7.4-10.4 Automated blood neutrophils/100 leukocytes 69 % 42-75 Automated blood lymphocytes/100 leukocytes 21 % 12-44 Blood monocytes/100 leukocytes 8 % 0-12 Automated blood eosinophils/100 leukocytes 2 % 0-10 Automated blood basophils/100 leukocytes 0 % 0-10 Blood neutrophils automated count (number/volume) 7.8 10*3 1.8-7.8 Blood lymphocytes automated count (number/volume) 2.4 10*3 1.0-4.0 Blood monocytes automated count (number/volume) 0. 9 10*3 0.0-1.0 Automated eosinophil count 0.2 10*3/uL 0 .0-0.3 Automated blood basophil count (count/volume) 0.0 10*3/uL 0.0-0.1 Comprehensive metabolic panel - 01/08/19 03:53 Serum or plasma sodium measurement (moles/volume) 137 mmol/L 135-145 Serum or plasma potassium measurement (moles/volume) 3.8 mmol/L 3.6-5.0 Serum or plasma chloride measurement (moles/volume) 104 mmol/L 98-107 Carbon dioxide 21 mmol/L 21-32 Serum or plasma anion gap determination (moles/volume) 12 mmol/L 5-14 Serum or plasma urea nitrogen measurement (mass/volume ) 13 mg/dL 7-18 Serum or plasma creatinine measurement (mass/volume) 1.10 mg/dL 0.60-1.30 Serum or plasma urea nitrogen/creatinine mass ratio 12 NRG Serum or plasma creatinine measurement w ith calculation of estimated glomerular filtration rate > NRG Serum or plasma glucose measurement (mass/volume) 430 mg/dL 70-105 Serum or plasma calcium measurement (mass/volume) 9.4 mg/dL 8.5-10.1 Serum or plasma total bilirubin measurement (mass/volu me) 0.3 mg/dL 0.1-1.0 Serum or plasma alkaline phosphatase yuridia surement (enzymatic activity/volume) 99 U/L 40-136 Serum or plasma aspartate aminotransfera se measurement (enzymatic activity/volume) 11 U/L 5-34 Serum or plasma alanine aminotransferase measurement (enzymatic activity/volume) 15 U/L 0-55 Serum or plasma protein measurement (mass/volume) 7.2 g/dL 6.4-8.2 Serum or plasma albumin measurement (mass/volume) 4.1 g/dL 3.2-4.5 CALCIUM CORRECTED 9.3 mg/dL 8.5-10.1 Magnesium - 01/08/19 03:53 Magnesium 1.9 mg/dL 1.8-2.4 PT panel in platelet poor plasma by coag ulation assay - 01/08/19 03:53 Prothrombin time (PT) in platelet poor plasma by coagu lation assay 14.3 s 12.2-14.7 INR in platelet poor plasma or blood by coagulation as say 1.1 0.8-1.4 Activated partial thromboplastin time (a PTT) in platelet poor plasma bycoagulation assay - 01/08/19 03:53 Activated partial thromboplastin time (a PTT) in platelet poor plasma bycoagulation assay 37 s 24-35 Serum or plasma troponin i.cardiac measu rement (mass/volume) - 01/08/19 03:53 Serum or plasma troponin i.cardiac measurement (mass/v olume) < ng/mL <0.028 Myoglobin, serum - 01/08/19 03:53 Myoglobin, serum 20.8 ng/mL 10.0-92.0 Fibrin D-dimer FEU measurement in platel et poor plasma (mass/volume) - 01/08/19 03:53 Fibrin D-dimer FEU measurement in platelet poor plasma (mass/volume) 0.37 ug/mL 0.00-0.49 Capillary blood glucose measurement by g lucometer (mass/volume) - 01/08/19 05:54 Capillary blood glucose measurement by glucometer (mas s/volume) 334 mg/dL 70-110 Serum or plasma creatine kinase measurem ent (enzymatic activity/volume) - 01/08/19 07:58 Serum or plasma creatine kinase measurem ent (enzymatic activity/volume) 54 U/L 30-200 Serum or plasma troponin i.cardiac measu rement (mass/volume) - 01/08/19 07:58 Serum or plasma troponin i.cardiac measurement (mass/v olume) 0.070 ng/mL <0.028 Capillary blood glucose measurement by g lucometer (mass/volume) - 01/08/19 11:31 Capillary blood glucose measurement by glucometer (mas s/volume) 244 mg/dL 70-110 Capillary blood glucose measurement by g lucometer (mass/volume) - 01/08/19 15:47 Capillary blood glucose measurement by glucometer (mas s/volume) 191 mg/dL 70-110 Capillary blood glucose measurement by g lucometer (mass/volume) - 01/08/19 21:08 Capillary blood glucose measurement by glucometer (mas s/volume) 204 mg/dL 70-110 Capillary blood glucose measurement by g lucometer (mass/volume) - 01/09/19 05:23 Capillary blood glucose measurement by glucometer (mas s/volume) 155 mg/dL 70-110 Automated blood complete blood count (he mogram) panel - 01/09/19 05:35 Blood leukocytes automated count (number/volume) 9.0 10*3/uL 4.3-11.0 Blood erythrocytes automated count (number/volume) 5.34 10*6/uL 4.35-5.85 Venous blood hemoglobin measurement (mass/volume) 14.4 g/dL 13.3-17.7 Blood hematocrit (volume fraction) 43 % 40-54 Automated erythrocyte mean corpuscular volume 80 [ foz_us] 80-99 Automated erythrocyte mean corpuscular h emoglobin (mass per erythrocyte) 27 pg 25-34 Automated erythrocyte mean corpuscular h emoglobin concentration measurement (mass/volume) 34 g/dL 32-36 Automated erythrocyte distribution width ratio 14. 6 % 10.0- 14.5 Automated blood platelet count (count/volume) 271 10*3/uL 130-400 Automated blood platelet mean volume measurement 10.1 [foz_us] 7.4-10.4 Comprehensive metabolic panel - 01/09/19 05:35 Serum or plasma sodium measurement (moles/volume) 137 mmol/L 135-145 Serum or plasma potassium measurement (moles/volume) 3.7 mmol/L 3.6-5.0 Serum or plasma chloride measurement (moles/volume) 106 mmol/L 98-107 Carbon dioxide 20 mmol/L 21-32 Serum or plasma anion gap determination (moles/volume) 11 mmol/L 5-14 Serum or plasma urea nitrogen measurement (mass/volume ) 11 mg/dL 7-18 Serum or plasma creatinine measurement (mass/volume) 0.77 mg/dL 0.60-1.30 Serum or plasma urea nitrogen/creatinine mass ratio 14 NRG Serum or plasma creatinine measurement w ith calculation of estimated glomerular filtration rate > NRG Serum or plasma glucose measurement (mass/volume) 156 mg/dL 70-105 Serum or plasma calcium measurement (mass/volume) 9.4 mg/dL 8.5-10.1 Serum or plasma total bilirubin measurement (mass/volu me) 0.4 mg/dL 0.1-1.0 Serum or plasma alkaline phosphatase yuridia surement (enzymatic activity/volume) 90 U/L 40-136 Serum or plasma aspartate aminotransfera se measurement (enzymatic activity/volume) 14 U/L 5-34 Serum or plasma alanine aminotransferase measurement (enzymatic activity/volume) 17 U/L 0-55 Serum or plasma protein measurement (mass/volume) 7.0 g/dL 6.4-8.2 Serum or plasma albumin measurement (mass/volume) 4.0 g/dL 3.2-4.5 CALCIUM CORRECTED 9.4 mg/dL 8.5-10.1 Magnesium - 01/09/19 05:35 Magnesium 1.8 mg/dL 1.8-2.4 Lipid 1996 panel - 01/09/19 05:35 Serum or plasma triglyceride measurement (mass/volume) 427 mg/dL <150 Serum or plasma cholesterol measurement (mass/volume) 211 mg/dL < 200 Serum or plasma cholesterol in HDL measurement (mass/v olume) 30 mg/dL 40-60 Cholesterol in LDL [mass/volume] in serum or plasma by direct assay 102 mg/dL 1-129 Serum or plasma cholesterol in VLDL measurement (mass/ volume) 85 mg/dL 5-40 Capillary blood glucose measurement by g lucometer (mass/volume) - 01/09/19 12:14 Capillary blood glucose measurement by glucometer (mas s/volume) 244 mg/dL 70-110 Automated blood complete blood count (he mogram) panel - 09/02/19 07:48 Blood leukocytes automated count (number/volume) 10.2 10*3/uL 4.3-11.0 Blood erythrocytes automated count (number/volume) 6.08 10*6/uL 4.35-5.85 Venous blood hemoglobin measurement (mass/volume) 16.4 g/dL 13.3-17.7 Blood hematocrit (volume fraction) 48 % 40-54 Automated erythrocyte mean corpuscular volume 79 [ foz_us] 80-99 Automated erythrocyte mean corpuscular h emoglobin (mass per erythrocyte) 27 pg 25-34 Automated erythrocyte mean corpuscular h emoglobin concentration measurement (mass/volume) 34 g/dL 32-36 Automated erythrocyte distribution width ratio 14. 4 % 10.0- 14.5 Automated blood platelet count (count/volume) 289 10*3/uL 130-400 Automated blood platelet mean volume measurement 9.9 [foz_us] 7.4-10.4 PT panel in platelet poor plasma by coag ulation assay - 09/02/19 07:48 Prothrombin time (PT) in platelet poor plasma by coagu lation assay 13.1 s 12.2-14.7 INR in platelet poor plasma or blood by coagulation as say 1.0 0.8-1.4 Activated partial thromboplastin time (a PTT) in platelet poor plasma bycoagulation assay - 09/02/19 07:48 Activated partial thromboplastin time (a PTT) in platelet poor plasma bycoagulation assay 30 s 24-35 Comprehensive metabolic panel - 09/02/19 07:48 Serum or plasma sodium measurement (moles/volume) 137 mmol/L 135-145 Serum or plasma potassium measurement (moles/volume) 3.7 mmol/L 3.6-5.0 Serum or plasma chloride measurement (moles/volume) 105 mmol/L 98-107 Carbon dioxide 19 mmol/L 21-32 Serum or plasma anion gap determination (moles/volume) 13 mmol/L 5-14 Serum or plasma urea nitrogen measurement (mass/volume ) 13 mg/dL 7-18 Serum or plasma creatinine measurement (mass/volume) 0.99 mg/dL 0.60-1.30 Serum or plasma urea nitrogen/creatinine mass ratio 13 NRG Serum or plasma creatinine measurement w ith calculation of estimated glomerular filtration rate > NRG Serum or plasma glucose measurement (mass/volume) 267 mg/dL 70-105 Serum or plasma calcium measurement (mass/volume) 9.5 mg/dL 8.5-10.1 Serum or plasma total bilirubin measurement (mass/volu me) 0.3 mg/dL 0.1-1.0 Serum or plasma alkaline phosphatase yuridia surement (enzymatic activity/volume) 110 U/L 40-136 Serum or plasma aspartate aminotransfera se measurement (enzymatic activity/volume) 15 U/L 5-34 Serum or plasma alanine aminotransferase measurement (enzymatic activity/volume) 20 U/L 0-55 Serum or plasma protein measurement (mass/volume) 7.8 g/dL 6.4-8.2 Serum or plasma albumin measurement (mass/volume) 4.5 g/dL 3.2-4.5 CALCIUM CORRECTED 9.1 mg/dL 8.5-10.1 Lipid 1996 panel - 09/02/19 07:48 Serum or plasma triglyceride measurement (mass/volume) 460 mg/dL <150 Serum or plasma cholesterol measurement (mass/volume) 191 mg/dL < 200 Serum or plasma cholesterol in HDL measurement (mass/v olume) 32 mg/dL 40-60 Cholesterol in LDL [mass/volume] in serum or plasma by direct assay 88 mg/dL 1-129 Serum or plasma cholesterol in VLDL measurement (mass/ volume) TNP 5-40 Methicillin resistant Staphylococcus aur eus (MRSA) screening culture - 09/02/19 07:48 Methicillin resistant Staphylococcus aureus (MRSA) scr eening culture NEG NRG Activated partial thromboplastin time (a PTT) in platelet poor plasma bycoagulation assay - 09/02/19 11:40 Activated partial thromboplastin time (a PTT) in platelet poor plasma bycoagulation assay 48 s 24-35 Complete blood count (CBC) with automate d white blood cell (WBC) differential - 11/05/19 21:49 Blood leukocytes automated count (number/volume) 11.6 10*3/uL 4.3-11.0 Blood erythrocytes automated count (number/volume) 6.13 10*6/uL 4.35-5.85 Venous blood hemoglobin measurement (mass/volume) 16.8 g/dL 13.3-17.7 Blood hematocrit (volume fraction) 49 % 40-54 Automated erythrocyte mean corpuscular volume 80 [ foz_us] 80-99 Automated erythrocyte mean corpuscular h emoglobin (mass per erythrocyte) 27 pg 25-34 Automated erythrocyte mean corpuscular h emoglobin concentration measurement (mass/volume) 34 g/dL 32-36 Automated erythrocyte distribution width ratio 15. 0 % 10.0- 14.5 Automated blood platelet count (count/volume) 271 10*3/uL 130-400 Automated blood platelet mean volume measurement 10.2 [foz_us] 7.4-10.4 Automated blood neutrophils/100 leukocytes 72 % 42-75 Automated blood lymphocytes/100 leukocytes 19 % 12-44 Blood monocytes/100 leukocytes 8 % 0-12 Automated blood eosinophils/100 leukocytes 1 % 0-10 Automated blood basophils/100 leukocytes 0 % 0-10 Blood neutrophils automated count (number/volume) 8.3 10*3 1.8-7.8 Blood lymphocytes automated count (number/volume) 2.2 10*3 1.0-4.0 Blood monocytes automated count (number/volume) 0. 9 10*3 0.0-1.0 Automated eosinophil count 0.2 10*3/uL 0 .0-0.3 Automated blood basophil count (count/volume) 0.0 10*3/uL 0.0-0.1 PT panel in platelet poor plasma by coag ulation assay - 11/05/19 21:49 Prothrombin time (PT) in platelet poor plasma by coagu lation assay 14.5 s 12.2-14.7 INR in platelet poor plasma or blood by coagulation as say 1.1 0.8-1.4 Activated partial thromboplastin time (a PTT) in platelet poor plasma bycoagulation assay - 11/05/19 21:49 Activated partial thromboplastin time (a PTT) in platelet poor plasma bycoagulation assay 26 s 24-35 Fibrin D-dimer FEU measurement in platel et poor plasma (mass/volume) - 11/05/19 21:49 Fibrin D-dimer FEU measurement in platelet poor plasma (mass/volume) 0.76 ug/mL 0.00-0.49 Comprehensive metabolic panel - 11/05/19 21:49 Serum or plasma sodium measurement (moles/volume) 138 mmol/L 135-145 Serum or plasma potassium measurement (moles/volume) 4.2 mmol/L 3.6-5.0 Serum or plasma chloride measurement (moles/volume) 105 mmol/L 98-107 Carbon dioxide 19 mmol/L 21-32 Serum or plasma anion gap determination (moles/volume) 14 mmol/L 5-14 Serum or plasma urea nitrogen measurement (mass/volume ) 12 mg/dL 7-18 Serum or plasma creatinine measurement (mass/volume) 1.00 mg/dL 0.60-1.30 Serum or plasma urea nitrogen/creatinine mass ratio 12 NRG Serum or plasma creatinine measurement w ith calculation of estimated glomerular filtration rate > NRG Serum or plasma glucose measurement (mass/volume) 152 mg/dL 70-105 Serum or plasma calcium measurement (mass/volume) 9.9 mg/dL 8.5-10.1 Serum or plasma total bilirubin measurement (mass/volu me) 0.6 mg/dL 0.1-1.0 Serum or plasma alkaline phosphatase yuridia surement (enzymatic activity/volume) 109 U/L 40-136 Serum or plasma aspartate aminotransfera se measurement (enzymatic activity/volume) 22 U/L 5-34 Serum or plasma alanine aminotransferase measurement (enzymatic activity/volume) 32 U/L 0-55 Serum or plasma protein measurement (mass/volume) 7.9 g/dL 6.4-8.2 Serum or plasma albumin measurement (mass/volume) 4.5 g/dL 3.2-4.5 CALCIUM CORRECTED 9.5 mg/dL 8.5-10.1 Serum or plasma troponin i.cardiac measu rement (mass/volume) - 11/05/19 21:49 Serum or plasma troponin i.cardiac measurement (mass/v olume) < ng/mL <0.028 Capillary blood glucose measurement by g lucometer (mass/volume) - 11/05/19 22:25 Capillary blood glucose measurement by glucometer (mas s/volume) 151 mg/dL 70-110 Complete urinalysis with reflex to cultu re - 11/17/19 14:30 Urine color determination YELLOW NRG Urine clarity determination CLEAR NR G Urine pH measurement by test strip 6.0 5-9 Specific gravity of urine by test strip 1.020 1.016-1.022 Urine protein assay by test strip, semi-quantitative NEGATIVE NEGATIVE Urine glucose detection by automated test strip 2+ NEGATIVE Erythrocytes detection in urine sediment by light micr oscopy NEGATIVE NEGATIVE Urine ketones detection by automated test strip TR YASHIRA NEGATIVE Urine nitrite detection by test strip NEGATIVE NEGATIVE Urine total bilirubin detection by test strip NEGA TIVE NEGATIVE Urine urobilinogen measurement by automated test strip (mass/volume) 0.2 mg/dL < = 1.0 Urine leukocyte esterase detection by dipstick NEG ATIVE NEGATIVE Automated urine sediment erythrocyte cou nt by microscopy (number/high power field) NONE NRG Automated urine sediment leukocyte count by microscopy (number/high power field) NONE NRG Bacteria detection in urine sediment by light microsco py TRACE NRG Crystals detection in urine sediment by light microsco py NONE NRG Casts detection in urine sediment by light microscopy NONE NRG Mucus detection in urine sediment by light microscopy SMALL NRG Complete urinalysis with reflex to culture NO NRG Urine drug screening test - 11/17/19 14: 30 Urine phencyclidine detection by screening method NEGATIVE NEGATIVE Urine benzodiazepines detection by screening method NEGATIVE NEGATIVE Urine cocaine detection NEGATIVE NEGATI VE Urine amphetamines detection by screening method N EGATIVE NEGATIVE Urine methamphetamine detection by screening method NEGATIVE NEGATIVE Urine cannabinoids detection by screening method N EGATIVE NEGATIVE Urine opiates detection by screening method NEGATI VE NEGATIVE Urine barbiturates detection NEGATIVE N EGATIVE Screening urine tricyclic antidepressants detection NEGATIVE NEGATIVE Urine methadone detection by screening method NEGA TIVE NEGATIVE Urine oxycodone detection POSITIVE NEGA TIVE Urine propoxyphene detection NEGATIVE N EGATIVE Complete blood count (CBC) with automate d white blood cell (WBC) differential - 11/17/19 14:47 Blood leukocytes automated count (number/volume) 13.5 10*3/uL 4.3-11.0 Blood erythrocytes automated count (number/volume) 5.62 10*6/uL 4.35-5.85 Venous blood hemoglobin measurement (mass/volume) 15.4 g/dL 13.3-17.7 Blood hematocrit (volume fraction) 44 % 40-54 Automated erythrocyte mean corpuscular volume 79 [ foz_us] 80-99 Automated erythrocyte mean corpuscular h emoglobin (mass per erythrocyte) 27 pg 25-34 Automated erythrocyte mean corpuscular h emoglobin concentration measurement (mass/volume) 35 g/dL 32-36 Automated erythrocyte distribution width ratio 14. 4 % 10.0- 14.5 Automated blood platelet count (count/volume) 317 10*3/uL 130-400 Automated blood platelet mean volume measurement 9.8 [foz_us] 7.4-10.4 Automated blood neutrophils/100 leukocytes 59 % 42-75 Automated blood lymphocytes/100 leukocytes 28 % 12-44 Blood monocytes/100 leukocytes 12 % 0-12 Automated blood eosinophils/100 leukocytes 1 % 0-10 Automated blood basophils/100 leukocytes 0 % 0-10 Blood neutrophils automated count (number/volume) 8.0 10*3 1.8-7.8 Blood lymphocytes automated count (number/volume) 3.8 10*3 1.0-4.0 Blood monocytes automated count (number/volume) 1. 6 10*3 0.0-1.0 Automated eosinophil count 0.2 10*3/uL 0 .0-0.3 Automated blood basophil count (count/volume) 0.0 10*3/uL 0.0-0.1 PT panel in platelet poor plasma by coag ulation assay - 11/17/19 14:47 Prothrombin time (PT) in platelet poor plasma by coagu lation assay 13.0 s 12.2-14.7 INR in platelet poor plasma or blood by coagulation as say 0.9 0.8-1.4 Comprehensive metabolic panel - 11/17/19 14:47 Serum or plasma sodium measurement (moles/volume) 137 mmol/L 135-145 Serum or plasma potassium measurement (moles/volume) 3.2 mmol/L 3.6-5.0 Serum or plasma chloride measurement (moles/volume) 101 mmol/L 98-107 Carbon dioxide 24 mmol/L 21-32 Serum or plasma anion gap determination (moles/volume) 12 mmol/L 5-14 Serum or plasma urea nitrogen measurement (mass/volume ) 17 mg/dL 7-18 Serum or plasma creatinine measurement (mass/volume) 0.98 mg/dL 0.60-1.30 Serum or plasma urea nitrogen/creatinine mass ratio 17 NRG Serum or plasma creatinine measurement w ith calculation of estimated glomerular filtration rate > NRG Serum or plasma glucose measurement (mass/volume) 227 mg/dL 70-105 Serum or plasma calcium measurement (mass/volume) 9.6 mg/dL 8.5-10.1 Serum or plasma total bilirubin measurement (mass/volu me) 0.4 mg/dL 0.1-1.0 Serum or plasma alkaline phosphatase yuridia surement (enzymatic activity/volume) 74 U/L 40-136 Serum or plasma aspartate aminotransfera se measurement (enzymatic activity/volume) 19 U/L 5-34 Serum or plasma alanine aminotransferase measurement (enzymatic activity/volume) 33 U/L 0-55 Serum or plasma protein measurement (mass/volume) 7.2 g/dL 6.4-8.2 Serum or plasma albumin measurement (mass/volume) 4.2 g/dL 3.2-4.5 CALCIUM CORRECTED 9.4 mg/dL 8.5-10.1 Magnesium - 11/17/19 14:47 Magnesium 1.7 mg/dL 1.6-2.4 Serum or plasma amylase measurement (enz ymatic activity/volume) - 11/17/19 14:47 Serum or plasma amylase measurement (enzymatic activit y/volume) 50 U/L 25-125 Lipase - 11/17/19 14:47 Lipase 70 U/L 8-78 Encounters ACCT No. Visit Date/Time Discharge Status Pt. Type Provider Facility Loc./Unit Complaint [id number] 11/17/2019 13:26:00 16:27:00 DIS Emergency SHON DO, CLYDE Hill [facility] ER CONFUSION;HEART BURN [id number] 11/05/2019 21:32:00 02:00:00 DIS Emergency STEFFNAIE PINTO MD [facility] ER HEADACHE [id number] 10/27/2019 14:48:00 23:59:59 CLS Outpatient DEREK KONG APRN [facility] RT COPD [id number] 10/23/2019 20:22:00 06:05:00 DIS Outpatient DEREK KONG APRN [facility] SLEEP SUSPECTED SLEEP APNEA [id number] 10/03/2019 10:13:00 23:59:59 CLS Outpatient DEREK KONG APRN [facility] RAD AF,HYPERSOMNIA, SLEEP DISORDER,COUGH,COPD [id number] 09/02/2019 07:21:00 18:44:00 DIS Outpatient ISAAK VANCE FACC, DEANA CARVER CC DS [facility] CATH CAD, AFIB, ANGINA, SOB [id number] 01/08/2019 06:10:00 14:17:00 DIS Inpatient DUNIA SANTOS MD [facility] 4TH CHEST PAIN,CAD [id number] 12/16/2018 11:30:00 10:06:00 DIS Outpatient HUNTER BLOOM DO [facility] CATH CP R/O ACS, HYPOGLYCEMI A [id number] 07/23/2018 06:56:00 11:05:00 DIS Outpatient ISAAK VANCE FACC, DEANA CARVER CC DS [facility] CATH STABLE MARTY NA PECTORIS [id number] 07/09/2018 11:30:00 23:59:59 CLS Preadmit DEANA MULLIGAN MD, FACC, FACP CCDS [facility] CARD SOB [id number] 05/20/2018 17:12:00 018 10:40:00 DIS Outpatient DUNIA SANTOS MD [facility] CATH CHEST PAIN [id number] 06/12/2017 07:28:00 017 23:59:59 CLS Outpatient ISAAK VANCE FACC, DEANA PONCEP CC DS [facility] LAB I25.10,E78. 4 [id number] 04/30/2017 17:47:00 017 12:30:00 DIS Inpatient WOLF TORRES HUNTER Drew [facility] ICU NSTEMI,LEFT BASILAR PNA [id number] 08/18/2016 14:06:00 016 16:46:00 DIS Emergency EDNA RUBALCAVA [facility] ER POSS KIDNEY STONE/UNAB LE TO URINATE [id number] 08/15/2016 12:15:00 016 14:00:00 DIS Outpatient ISAAK VANCE FACC, DEANA PONCEP CC DS [facility] CATH PALPITATION S,PAF [id number] 08/03/2016 19:22:00 016 21:28:00 DIS Emergency CLYDE MENENDEZ DO [facility] ER CP [id number] 10/21/2015 06:53:00 016 23:59:59 CLS Outpatient ISAAK VANCE FACC, DEANA PONCEP CC DS [facility] CARD HTN,TACHYCARDIA,PALPITATIONS [id number] 10/20/2015 11:42:00 016 23:59:59 CLS Outpatient ISAAK VANCE FACC, DEANA PONCEP CC DS [facility] CARD HTN,TACHYCA RDIA [id number] 05/03/2015 05:23:00 015 07:12:00 DIS Emergency MELONIE RUIZ DO [facility] ER L HIP PAIN [id number] 04/05/2015 17:38:00 015 18:30:00 DIS Emergency MARKUS GONZALEZ APRN [facility] ER RT HAND PAIN [id number] 01/10/2015 21:31:00 015 22:29:00 DIS Jack WATTS MD, CHAPO Thompson [facility] ER RT KNEE PAIN [id number] 09/13/2018 04:55:00 Document Registration [id number] 01/10/2015 21:31:00 Document Registration [id number] 05/12/2012 19:00:00 Document Registration
== END 2019-11-17 16:27 | disposition home or self-care (01) ==
LOC: EDUNIT# 13:25 → ER 13:26
DX: R41.0 Disorientation, unspecified (principal); K21.9 Gastro-esophageal reflux disease without esophagitis; I25.10 Atherosclerotic heart disease of native coronary artery without angina pectoris; I10 Essential (primary) hypertension; E11.9 Type 2 diabetes mellitus without complications; I48.91 Unspecified atrial fibrillation; E78.00 Pure hypercholesterolemia, unspecified; J44.9 Chronic obstructive pulmonary disease, unspecified; F17.210 Nicotine dependence, cigarettes, uncomplicated; F17.290 Nicotine dependence, other tobacco product, uncomplicated; Z79.01 Long term (current) use of anticoagulants; Z79.02 Long term (current) use of antithrombotics/antiplatelets; Z79.4 Long term (current) use of insulin; Z86.011 Personal history of benign neoplasm of the brain; Z80.1 Family history of malignant neoplasm of trachea, bronchus and lung; Z82.49 Family history of ischemic heart disease and other diseases of the circulatory system
CPT/HCPCS: 36415; 70450; 71045; 80053; 80306; 81000; 82150; 83690; 83735; 85025; 85610; 96374; 96375

== ENCOUNTER 2020-01-27 01:48 | Outpatient (RCR) | payer MEDICAID ==
[2019-12-15 15:59] LABS: BASOPHILS % (AUTO) 0 % (0-10); EOSINOPHILS # (AUTO) 0.1 10^3/uL (0.0-0.3); EOSINOPHILS % (AUTO) 1 % (0-10); HEMATOCRIT 41 % (40-54); HEMOGLOBIN 14.2 G/DL (13.3-17.7); LYMPHOCYTES # (AUTO) 1.9 X 10^3 (1.0-4.0); LYMPHOCYTES % (AUTO) 16 % (12-44); MEAN CORPUSCULAR HEMOGLOBIN 28 PG (25-34); MEAN CORPUSCULAR HGB CONC 34 G/DL (32-36); MEAN CORPUSCULAR VOLUME 82 FL (80-99); MEAN PLATELET VOLUME 9.7 FL (7.4-10.4); MONOCYTES % (AUTO) 8 % (0-12); NEUTROPHILS # (AUTO) 8.9 X 10^3 (1.8-7.8); NEUTROPHILS % (AUTO) 74 % (42-75); PLATELET COUNT 290 10^3/uL (130-400); RED CELL DISTRIBUTION WIDTH 15.8 % (10.0-14.5)
[2019-12-15 16:19] LABS: ALANINE AMINOTRANSFERASE 17 U/L (0-55); ALBUMIN 4.1 GM/DL (3.2-4.5); ALKALINE PHOSPHATASE 88 U/L (40-136); BILIRUBIN,TOTAL 0.4 MG/DL (0.1-1.0); BUN/CREATININE RATIO 16; CALCIUM 9.5 MG/DL (8.5-10.1); CARBON DIOXIDE 22 MMOL/L (21-32); CHLORIDE 109 MMOL/L (98-107); CREATININE SERUM 0.73 MG/DL (0.60-1.30); GFR ESTIMATED > 60; GLUCOSE 144 MG/DL (70-105); MAGNESIUM 1.3 MG/DL (1.6-2.4); POTASSIUM 3.5 MMOL/L (3.6-5.0); SODIUM 141 MMOL/L (135-145)
[2019-12-22 14:15] LABS: BASOPHILS % (AUTO) 0 % (0-10); EOSINOPHILS # (AUTO) 0.2 10^3/uL (0.0-0.3); EOSINOPHILS % (AUTO) 2 % (0-10); HEMATOCRIT 41 % (40-54); HEMOGLOBIN 13.6 G/DL (13.3-17.7); LYMPHOCYTES # (AUTO) 1.9 X 10^3 (1.0-4.0); LYMPHOCYTES % (AUTO) 18 % (12-44); MEAN CORPUSCULAR HEMOGLOBIN 28 PG (25-34); MEAN CORPUSCULAR HGB CONC 33 G/DL (32-36); MEAN CORPUSCULAR VOLUME 84 FL (80-99); MEAN PLATELET VOLUME 9.9 FL (7.4-10.4); MONOCYTES # (AUTO) 0.8 X 10^3 (0.0-1.0); MONOCYTES % (AUTO) 8 % (0-12); NEUTROPHILS # (AUTO) 7.8 X 10^3 (1.8-7.8); NEUTROPHILS % (AUTO) 73 % (42-75); PLATELET COUNT 306 10^3/uL (130-400); RED CELL DISTRIBUTION WIDTH 15.2 % (10.0-14.5); WHITE BLOOD COUNT 10.7 10^3/uL (4.3-11.0)
[2019-12-22 14:41] LABS: ALANINE AMINOTRANSFERASE 16 U/L (0-55); ALBUMIN 4.2 GM/DL (3.2-4.5); ALKALINE PHOSPHATASE 87 U/L (40-136); BILIRUBIN,TOTAL 0.2 MG/DL (0.1-1.0); BUN/CREATININE RATIO 14; CARBON DIOXIDE 25 MMOL/L (21-32); CHLORIDE 106 MMOL/L (98-107); CREATININE SERUM 0.81 MG/DL (0.60-1.30); GFR ESTIMATED > 60; GLUCOSE 150 MG/DL (70-105); POTASSIUM 3.6 MMOL/L (3.6-5.0); SODIUM 142 MMOL/L (135-145); TOTAL PROTEIN 7.1 GM/DL (6.4-8.2)
[2019-12-30 14:12] LABS: HEMOGLOBIN 14.5 G/DL (13.3-17.7); WHITE BLOOD COUNT 10.7 10^3/uL (4.3-11.0)
[2019-12-30 14:13] LABS: BASOPHILS % (AUTO) 0 % (0-10); EOSINOPHILS # (AUTO) 0.3 10^3/uL (0.0-0.3); EOSINOPHILS % (AUTO) 3 % (0-10); HEMATOCRIT 45 % (40-54); LYMPHOCYTES % (AUTO) 19 % (12-44); MEAN CORPUSCULAR HEMOGLOBIN 28 PG (25-34); MEAN CORPUSCULAR HGB CONC 32 G/DL (32-36); MEAN CORPUSCULAR VOLUME 85 FL (80-99); MEAN PLATELET VOLUME 9.6 FL (7.4-10.4); MONOCYTES % (AUTO) 10 % (0-12); NEUTROPHILS # (AUTO) 7.3 X 10^3 (1.8-7.8); NEUTROPHILS % (AUTO) 69 % (42-75); PLATELET COUNT 371 10^3/uL (130-400); RED CELL DISTRIBUTION WIDTH 15.7 % (10.0-14.5)
[2019-12-30 14:33] LABS: ALANINE AMINOTRANSFERASE 21 U/L (0-55); ALBUMIN 4.3 GM/DL (3.2-4.5); ALKALINE PHOSPHATASE 87 U/L (40-136); BILIRUBIN,TOTAL 0.3 MG/DL (0.1-1.0); BUN/CREATININE RATIO 17; CALCIUM 9.4 MG/DL (8.5-10.1); CARBON DIOXIDE 26 MMOL/L (21-32); CHLORIDE 103 MMOL/L (98-107); CREATININE SERUM 0.84 MG/DL (0.60-1.30); GFR ESTIMATED > 60; GLUCOSE 166 MG/DL (70-105); MAGNESIUM 1.9 MG/DL (1.6-2.4); SODIUM 141 MMOL/L (135-145); TOTAL PROTEIN 7.3 GM/DL (6.4-8.2)
[2020-01-06 13:56] LABS: BASOPHILS % (AUTO) 0 % (0-10); EOSINOPHILS # (AUTO) 0.3 10^3/uL (0.0-0.3); EOSINOPHILS % (AUTO) 3 % (0-10); HEMATOCRIT 45 % (40-54); HEMOGLOBIN 14.9 G/DL (13.3-17.7); LYMPHOCYTES % (AUTO) 20 % (12-44); MEAN CORPUSCULAR HEMOGLOBIN 28 PG (25-34); MEAN CORPUSCULAR HGB CONC 33 G/DL (32-36); MEAN CORPUSCULAR VOLUME 84 FL (80-99); MEAN PLATELET VOLUME 9.7 FL (7.4-10.4); MONOCYTES # (AUTO) 1.1 X 10^3 (0.0-1.0); MONOCYTES % (AUTO) 11 % (0-12); NEUTROPHILS # (AUTO) 6.4 X 10^3 (1.8-7.8); NEUTROPHILS % (AUTO) 65 % (42-75); PLATELET COUNT 380 10^3/uL (130-400); RED CELL DISTRIBUTION WIDTH 15.4 % (10.0-14.5); WHITE BLOOD COUNT 9.9 10^3/uL (4.3-11.0)
[2020-01-06 14:12] LABS: BUN/CREATININE RATIO 14; CALCIUM 9.7 MG/DL (8.5-10.1); CARBON DIOXIDE 20 MMOL/L (21-32); CHLORIDE 107 MMOL/L (98-107); CREATININE SERUM 0.98 MG/DL (0.60-1.30); GFR ESTIMATED > 60; GLUCOSE 106 MG/DL (70-105); POTASSIUM 4.6 MMOL/L (3.6-5.0); SODIUM 141 MMOL/L (135-145)
[2020-01-14 13:36] LABS: BASOPHILS % (AUTO) 0 % (0-10); EOSINOPHILS # (AUTO) 0.3 10^3/uL (0.0-0.3); EOSINOPHILS % (AUTO) 3 % (0-10); HEMATOCRIT 43 % (40-54); HEMOGLOBIN 14.6 G/DL (13.3-17.7); LYMPHOCYTES # (AUTO) 1.9 X 10^3 (1.0-4.0); LYMPHOCYTES % (AUTO) 20 % (12-44); MEAN CORPUSCULAR HEMOGLOBIN 28 PG (25-34); MEAN CORPUSCULAR HGB CONC 34 G/DL (32-36); MEAN CORPUSCULAR VOLUME 84 FL (80-99); MEAN PLATELET VOLUME 9.9 FL (7.4-10.4); MONOCYTES % (AUTO) 11 % (0-12); NEUTROPHILS # (AUTO) 6.5 X 10^3 (1.8-7.8); NEUTROPHILS % (AUTO) 66 % (42-75); PLATELET COUNT 316 10^3/uL (130-400); RED CELL DISTRIBUTION WIDTH 15.5 % (10.0-14.5); WHITE BLOOD COUNT 9.8 10^3/uL (4.3-11.0)
[2020-01-14 13:47] LABS: ALBUMIN 4.3 GM/DL (3.2-4.5); CHLORIDE 106 MMOL/L (98-107); POTASSIUM 4.3 MMOL/L (3.6-5.0); SODIUM 140 MMOL/L (135-145)
[2020-01-14 13:48] LABS: CALCIUM 9.1 MG/DL (8.5-10.1)
[2020-01-14 13:49] LABS: GLUCOSE 145 MG/DL (70-105)
[2020-01-14 13:50] LABS: TOTAL PROTEIN 7.1 GM/DL (6.4-8.2)
[2020-01-14 13:51] LABS: BILIRUBIN,TOTAL 0.3 MG/DL (0.1-1.0); CARBON DIOXIDE 22 MMOL/L (21-32)
[2020-01-14 13:53] LABS: ALKALINE PHOSPHATASE 82 U/L (40-136); CREATININE SERUM 0.88 MG/DL (0.60-1.30); GFR ESTIMATED > 60
[2020-01-14 13:54] LABS: BUN/CREATININE RATIO 14
[2020-01-14 13:56] LABS: ALANINE AMINOTRANSFERASE 19 U/L (0-55)
[2020-01-23 13:47] LABS: BASOPHILS % (AUTO) 0 % (0-10); EOSINOPHILS # (AUTO) 0.4 10^3/uL (0.0-0.3); EOSINOPHILS % (AUTO) 3 % (0-10); HEMATOCRIT 44 % (40-54); LYMPHOCYTES # (AUTO) 1.8 X 10^3 (1.0-4.0); LYMPHOCYTES % (AUTO) 16 % (12-44); MEAN CORPUSCULAR HEMOGLOBIN 28 PG (25-34); MEAN CORPUSCULAR HGB CONC 34 G/DL (32-36); MEAN CORPUSCULAR VOLUME 83 FL (80-99); MEAN PLATELET VOLUME 9.6 FL (7.4-10.4); MONOCYTES % (AUTO) 9 % (0-12); NEUTROPHILS # (AUTO) 8.1 X 10^3 (1.8-7.8); NEUTROPHILS % (AUTO) 72 % (42-75); PLATELET COUNT 306 10^3/uL (130-400); RED CELL DISTRIBUTION WIDTH 15.6 % (10.0-14.5); WHITE BLOOD COUNT 11.4 10^3/uL (4.3-11.0)
[2020-01-23 14:08] LABS: ALANINE AMINOTRANSFERASE 20 U/L (0-55); ALBUMIN 4.2 GM/DL (3.2-4.5); ALKALINE PHOSPHATASE 78 U/L (40-136); BILIRUBIN,TOTAL 0.3 MG/DL (0.1-1.0); BUN/CREATININE RATIO 19; CALCIUM 9.2 MG/DL (8.5-10.1); CARBON DIOXIDE 19 MMOL/L (21-32); CHLORIDE 106 MMOL/L (98-107); CREATININE SERUM 0.91 MG/DL (0.60-1.30); GFR ESTIMATED > 60; GLUCOSE 167 MG/DL (70-105); POTASSIUM 4.4 MMOL/L (3.6-5.0); SODIUM 138 MMOL/L (135-145); TOTAL PROTEIN 7.3 GM/DL (6.4-8.2)
[~2020-01-27 01:48] MED LIST changes: +PANT40TA2 PO
[2020-02-24 13:07] LABS: BASOPHILS % (AUTO) 0 % (0-10); EOSINOPHILS # (AUTO) 0.2 10^3/uL (0.0-0.3); EOSINOPHILS % (AUTO) 3 % (0-10); HEMATOCRIT 43 % (40-54); HEMOGLOBIN 14.3 G/DL (13.3-17.7); LYMPHOCYTES # (AUTO) 1.5 X 10^3 (1.0-4.0); LYMPHOCYTES % (AUTO) 18 % (12-44); MEAN CORPUSCULAR HEMOGLOBIN 28 PG (25-34); MEAN CORPUSCULAR HGB CONC 34 G/DL (32-36); MEAN CORPUSCULAR VOLUME 84 FL (80-99); MEAN PLATELET VOLUME 9.8 FL (7.4-10.4); MONOCYTES # (AUTO) 0.7 X 10^3 (0.0-1.0); MONOCYTES % (AUTO) 9 % (0-12); NEUTROPHILS % (AUTO) 70 % (42-75); PLATELET COUNT 244 10^3/uL (130-400); RED CELL DISTRIBUTION WIDTH 14.9 % (10.0-14.5); WHITE BLOOD COUNT 8.5 10^3/uL (4.3-11.0)
[2020-02-24 13:28] LABS: ALANINE AMINOTRANSFERASE 15 U/L (0-55); ALKALINE PHOSPHATASE 76 U/L (40-136); BILIRUBIN,TOTAL 0.3 MG/DL (0.1-1.0); BUN/CREATININE RATIO 12; CALCIUM 8.6 MG/DL (8.5-10.1); CARBON DIOXIDE 23 MMOL/L (21-32); CHLORIDE 107 MMOL/L (98-107); CREATININE SERUM 0.82 MG/DL (0.60-1.30); GFR ESTIMATED > 60; GLUCOSE 139 MG/DL (70-105); POTASSIUM 4.1 MMOL/L (3.6-5.0); SODIUM 141 MMOL/L (135-145)
== END 2020-02-24 12:48 | disposition home or self-care (01) ==
LOC: ONC 01:48
PROVIDERS: ATTEND Internal Medicine Hematology & Oncology
DX: Z51.0 Encounter for antineoplastic radiation therapy (principal); C71.9 Malignant neoplasm of brain, unspecified
CPT/HCPCS: 77300; 77301; 77334; 77336; 77338; 77386; 77470; 80048; 80053; 83735; 85025; 99204; 99213; 99214

== ENCOUNTER → 2020-02-23 | Outpatient (CLI) | payer MEDICARE, MEDICAID ==
[~2020-02-23] MED LIST changes: +GADOBUTROL 10 MMOL/10 ML (GADAVIST) VIAL IV ONE
--- NOTE | 2020-02-23 09:49 | Diagnostic Imaging Report ---
PROCEDURE: MR imaging of the brain with and without contrast. TECHNIQUE: Multiplanar, multisequence MR imaging of the brain was performed with and without contrast. INDICATION: Intracranial neoplasm. COMPARISON: 11/12/2019. FINDINGS: The ventricles and sulci are within normal limits. There are previous post surgical changes of a left parietal craniotomy. There is a persistent irregularly peripherally enhancing mass in the left parietal and occipital lobes. This measures 4.9 cm craniocaudal x 4.3 cm AP x 2.2 cm transverse. Overall, the degree of peripheral nodular enhancement appears to have increased. The mass continues to be necrotic centrally. There is some overlying meningeal enhancement as well. There is no hydrocephalus. There is no midline shift. There is moderate surrounding vasogenic edema extending into the temporal and occipital lobes. There is no other mass. There are no areas of diffusion restriction appreciated to suggest an acute CVA. The sinuses and mastoid air cells are essentially clear. The globes and intraorbital structures are unremarkable. IMPRESSION: Persistent necrotic peripherally enhancing mass as described. Again, while the overall size is relatively stable, there does appear to be increasing nodular enhancement in the periphery. The degree of surrounding vasogenic edema appears relatively stable. Dictated by: Dictated on workstation # [id number]
== END ==
LOC: RAD 08:16
PROVIDERS: ATTEND Internal Medicine Hematology & Oncology
DX: C71.9 Malignant neoplasm of brain, unspecified (principal)
CPT/HCPCS: 70553

== ENCOUNTER → 2020-03-29 | Outpatient (CLI) | payer MEDICARE, MEDICAID ==
[~2020-03-29] MED LIST changes: -GADOBUTROL 10 MMOL/10 ML (GADAVIST) VIAL IV ONE
== END ==
LOC: LABNPT 10:10
PROVIDERS: ATTEND Nurse Practitioner Adult Health
DX: Z20.828 Contact with and (suspected) exposure to other viral communicable diseases (principal)

== ENCOUNTER → 2020-05-17 | Outpatient (CLI) | payer MEDICARE, MEDICAID | LOC: LAB 09:23 | PROVIDERS: ATTEND Family Medicine | DX: E11.8 Type 2 diabetes mellitus with unspecified complications (principal) | CPT/HCPCS: 36415; 83036 ==

== ENCOUNTER → 2020-05-17 | Outpatient (CLI) | payer MEDICARE, MEDICAID ==
[~2020-05-17] MED LIST changes: +GADOBUTROL 10 MMOL/10 ML (GADAVIST) VIAL IV ONE
--- NOTE | 2020-05-17 10:00 | Diagnostic Imaging Report ---
PROCEDURE: MR imaging of the brain with and without contrast. TECHNIQUE: Multiplanar, multisequence MR imaging of the brain was performed with and without contrast. INDICATION: Brain tumor, status post surgery on 11/11/2019. Patient has undergone chemotherapy and radiation therapy. The study is performed for followup. COMPARISON: MRI of the brain from 02/23/2020. FINDINGS: Post surgical changes of left posterior parieto-occipital craniotomy are again noted. Minimal blood products at the surgical bed are noted and unchanged. The ventricular size is stable. The irregular enhancing mass in the left posterior parietal-occipital lobe persists. This measures 3.0 cm AP x 2.1 cm transverse x 4.6 cm cephalocaudal. This compares with 4.3 cm x 2.3 cm x 4.9 cm on the prior exam. Enhancement of the overlying dura is again seen. There continues to be significant surrounding T2 signal, consistent with vasogenic edema. This is similar to the prior exam. The degree of central necrosis does appear to be slightly less but the degree of enhancement may be slightly more internally. No new mass is identified. The corpus callosum is unremarkable. The sella and parasellar structures are unremarkable. No diffusion restriction is identified. The normal expected flow-voids within the carotid siphons are seen. IMPRESSION: The irregular enhancing mass in the left posterior parietal lobe persists. The overall size of the lesion does appear to be slightly decreased when compared with the examination from 02/23/2020. There is less internal necrosis and more internal enhancement on today's study. Surrounding vasogenic edema persists. There is no midline shift. No new enhancing mass is identified. Dictated by: Dictated on workstation # [id number]
== END ==
LOC: RAD 08:23
PROVIDERS: ATTEND Nurse Practitioner Adult Health
DX: C71.9 Malignant neoplasm of brain, unspecified (principal); Z98.890 Other specified postprocedural states; Z92.3 Personal history of irradiation; Z92.21 Personal history of antineoplastic chemotherapy
CPT/HCPCS: 70553

== ENCOUNTER → 2020-08-17 | Outpatient (CLI) | payer MEDICARE, MEDICAID ==
[~2020-08-17] MED LIST changes: +ASPI-1238 PO; -ASPI-983 PO
--- NOTE | 2020-08-17 10:57 | Diagnostic Imaging Report ---
PROCEDURE: MR imaging of the brain with and without contrast. TECHNIQUE: Multiplanar, multisequence MR imaging of the brain was performed with and without contrast. INDICATION: Glioblastoma. COMPARISON: MRI brain without and with IV contrast 02/23/2020 and 05/17/2020. FINDINGS: Again seen is the irregular peripheral enhancing mass in the left parietal and occipital lobes and bordering the left lateral ventricle. This continues to decrease in size is probably best consistently measured on the coronal images where it measures 4.4 x 2.5 cm today, previously 4.6 x 3.1 cm when measured in similar fashion. The degree of adjacent T2 hyperintensity has not measurably changed. No new regions of abnormal intracranial enhancement or signal. Stable small amount of fluid overlying this mass underlying the left parietal craniotomy is stable measuring up to 0.4 cm in thickness. Normal morphology of the major midline structures, sella, posterior fossa and cerebellar pontine angle. No hydrocephalus. Normal intracranial flow voids. The orbits are negative. The paranasal sinuses and mastoids are clear. Normal bone marrow signal. IMPRESSION: Continued decreasing size of the enhancing mass in the left parietal and occipital lobes, measurements above. No new foci of abnormal intracranial signal or enhancement. Stable tiny amount of fluid underlying the adjacent craniotomy. Dictated by: Dictated on workstation # [id number]
== END ==
LOC: RAD 09:30
PROVIDERS: ATTEND Nurse Practitioner Adult Health
DX: Z12.89 Encounter for screening for malignant neoplasm of other sites (principal); C71.9 Malignant neoplasm of brain, unspecified
CPT/HCPCS: 70553

== ENCOUNTER 2020-08-19 12:40 | Outpatient (RCR) | payer MEDICARE, MEDICAID ==
[2020-05-31 13:13] LABS: BASOPHILS % (AUTO) 0 % (0-10); EOSINOPHILS # (AUTO) 0.2 10^3/uL (0.0-0.3); EOSINOPHILS % (AUTO) 2 % (0-10); HEMATOCRIT 42 % (40-54); HEMOGLOBIN 14.2 G/DL (13.3-17.7); LYMPHOCYTES # (AUTO) 1.5 X 10^3 (1.0-4.0); LYMPHOCYTES % (AUTO) 17 % (12-44); MEAN CORPUSCULAR HEMOGLOBIN 29 PG (25-34); MEAN CORPUSCULAR HGB CONC 34 G/DL (32-36); MEAN CORPUSCULAR VOLUME 85 FL (80-99); MONOCYTES # (AUTO) 0.7 X 10^3 (0.0-1.0); MONOCYTES % (AUTO) 9 % (0-12); NEUTROPHILS # (AUTO) 6.1 X 10^3 (1.8-7.8); NEUTROPHILS % (AUTO) 72 % (42-75); PLATELET COUNT 265 10^3/uL (130-400); WHITE BLOOD COUNT 8.5 10^3/uL (4.3-11.0)
[2020-05-31 13:28] LABS: BUN/CREATININE RATIO 18; CALCIUM 8.9 MG/DL (8.5-10.1); CARBON DIOXIDE 24 MMOL/L (21-32); CHLORIDE 108 MMOL/L (98-107); CREATININE SERUM 0.72 MG/DL (0.60-1.30); GFR ESTIMATED > 60; GLUCOSE 133 MG/DL (70-105); SODIUM 143 MMOL/L (135-145)
[2020-06-15 14:42] LABS: BASOPHILS % (AUTO) 0 % (0-10); EOSINOPHILS # (AUTO) 0.3 10^3/uL (0.0-0.3); EOSINOPHILS % (AUTO) 3 % (0-10); HEMATOCRIT 43 % (40-54); HEMOGLOBIN 14.5 G/DL (13.3-17.7); LYMPHOCYTES # (AUTO) 1.8 X 10^3 (1.0-4.0); LYMPHOCYTES % (AUTO) 18 % (12-44); MEAN CORPUSCULAR HEMOGLOBIN 29 PG (25-34); MEAN CORPUSCULAR HGB CONC 34 G/DL (32-36); MEAN CORPUSCULAR VOLUME 86 FL (80-99); MONOCYTES # (AUTO) 0.8 X 10^3 (0.0-1.0); MONOCYTES % (AUTO) 8 % (0-12); NEUTROPHILS # (AUTO) 6.9 X 10^3 (1.8-7.8); NEUTROPHILS % (AUTO) 70 % (42-75); PLATELET COUNT 260 10^3/uL (130-400); WHITE BLOOD COUNT 9.7 10^3/uL (4.3-11.0)
[2020-06-15 14:59] LABS: BUN/CREATININE RATIO 14; CALCIUM 8.7 MG/DL (8.5-10.1); CARBON DIOXIDE 27 MMOL/L (21-32); CHLORIDE 108 MMOL/L (98-107); CREATININE SERUM 0.71 MG/DL (0.60-1.30); GFR ESTIMATED > 60; GLUCOSE 111 MG/DL (70-105); POTASSIUM 4.1 MMOL/L (3.6-5.0); SODIUM 142 MMOL/L (135-145)
[2020-06-24 09:58] LABS: BASOPHILS % (AUTO) 0 % (0-10); EOSINOPHILS # (AUTO) 0.3 10^3/uL (0.0-0.3); EOSINOPHILS % (AUTO) 4 % (0-10); HEMATOCRIT 46 % (40-54); HEMOGLOBIN 15.4 G/DL (13.3-17.7); LYMPHOCYTES # (AUTO) 2.4 X 10^3 (1.0-4.0); LYMPHOCYTES % (AUTO) 30 % (12-44); MEAN CORPUSCULAR HEMOGLOBIN 29 PG (25-34); MEAN CORPUSCULAR HGB CONC 34 G/DL (32-36); MEAN CORPUSCULAR VOLUME 85 FL (80-99); MEAN PLATELET VOLUME 9.8 FL (7.4-10.4); MONOCYTES % (AUTO) 12 % (0-12); NEUTROPHILS # (AUTO) 4.4 X 10^3 (1.8-7.8); NEUTROPHILS % (AUTO) 54 % (42-75); PLATELET COUNT 264 10^3/uL (130-400); WHITE BLOOD COUNT 8.1 10^3/uL (4.3-11.0)
[2020-06-24 10:18] LABS: ALANINE AMINOTRANSFERASE 15 U/L (0-55); ALKALINE PHOSPHATASE 69 U/L (40-136); BILIRUBIN,TOTAL 0.4 MG/DL (0.1-1.0); BUN/CREATININE RATIO 16; CALCIUM 9.2 MG/DL (8.5-10.1); CARBON DIOXIDE 25 MMOL/L (21-32); CHLORIDE 105 MMOL/L (98-107); CREATININE SERUM 0.77 MG/DL (0.60-1.30); GFR ESTIMATED > 60; GLUCOSE 121 MG/DL (70-105); POTASSIUM 3.8 MMOL/L (3.6-5.0); SODIUM 141 MMOL/L (135-145); TOTAL PROTEIN 6.9 GM/DL (6.4-8.2)
[2020-07-05 11:04] LABS: BASOPHILS % (AUTO) 1 % (0-10); EOSINOPHILS # (AUTO) 0.4 10^3/uL (0.0-0.3); EOSINOPHILS % (AUTO) 6 % (0-10); HEMATOCRIT 44 % (40-54); HEMOGLOBIN 14.5 g/dL (13.3-17.7); LYMPHOCYTES # (AUTO) 1.6 10^3/uL (1.0-4.0); LYMPHOCYTES % (AUTO) 21 % (12-44); MEAN CORPUSCULAR HEMOGLOBIN 29 pg (25-34); MEAN CORPUSCULAR HGB CONC 33 g/dL (32-36); MEAN CORPUSCULAR VOLUME 87 fL (80-99); MEAN PLATELET VOLUME 9.9 fL (9.0-12.2); MONOCYTES # (AUTO) 0.9 10^3/uL (0.0-1.0); MONOCYTES % (AUTO) 11 % (0-12); NEUTROPHILS # (AUTO) 4.7 10^3/uL (1.8-7.8); NEUTROPHILS % (AUTO) 61 % (42-75); PLATELET COUNT 240 10^3/uL (130-400); WHITE BLOOD COUNT 7.7 10^3/uL (4.3-11.0)
[2020-07-05 11:30] LABS: BUN/CREATININE RATIO 18; CARBON DIOXIDE 27 MMOL/L (21-32); CHLORIDE 106 MMOL/L (98-107); CREATININE SERUM 0.76 MG/DL (0.60-1.30); GFR ESTIMATED > 60; GLUCOSE 117 MG/DL (70-105); SODIUM 141 MMOL/L (135-145)
[2020-07-22 14:04] LABS: BASOPHILS % (AUTO) 0 % (0-10); EOSINOPHILS # (AUTO) 0.3 10^3/uL (0.0-0.3); EOSINOPHILS % (AUTO) 3 % (0-10); HEMATOCRIT 43 % (40-54); HEMOGLOBIN 13.9 g/dL (13.3-17.7); LYMPHOCYTES # (AUTO) 1.9 10^3/uL (1.0-4.0); LYMPHOCYTES % (AUTO) 19 % (12-44); MEAN CORPUSCULAR HEMOGLOBIN 29 pg (25-34); MEAN CORPUSCULAR HGB CONC 33 g/dL (32-36); MEAN CORPUSCULAR VOLUME 88 fL (80-99); MONOCYTES # (AUTO) 0.8 10^3/uL (0.0-1.0); MONOCYTES % (AUTO) 8 % (0-12); NEUTROPHILS % (AUTO) 70 % (42-75); PLATELET COUNT 228 10^3/uL (130-400); WHITE BLOOD COUNT 10.1 10^3/uL (4.3-11.0)
[2020-07-22 14:19] LABS: ALANINE AMINOTRANSFERASE 12 U/L (0-55); ALBUMIN 3.9 GM/DL (3.2-4.5); ALKALINE PHOSPHATASE 56 U/L (40-136); BILIRUBIN,TOTAL 0.3 MG/DL (0.1-1.0); BUN/CREATININE RATIO 24; CALCIUM 8.8 MG/DL (8.5-10.1); CARBON DIOXIDE 23 MMOL/L (21-32); CHLORIDE 107 MMOL/L (98-107); CREATININE SERUM 0.72 MG/DL (0.60-1.30); GFR ESTIMATED > 60; GLUCOSE 114 MG/DL (70-105); POTASSIUM 4.3 MMOL/L (3.6-5.0); SODIUM 141 MMOL/L (135-145); TOTAL PROTEIN 6.7 GM/DL (6.4-8.2)
[2020-08-02 11:12] LABS: BASOPHILS % (AUTO) 1 % (0-10); EOSINOPHILS # (AUTO) 0.5 10^3/uL (0.0-0.3); EOSINOPHILS % (AUTO) 6 % (0-10); HEMATOCRIT 44 % (40-54); HEMOGLOBIN 14.7 g/dL (13.3-17.7); LYMPHOCYTES % (AUTO) 22 % (12-44); MEAN CORPUSCULAR HEMOGLOBIN 29 pg (25-34); MEAN CORPUSCULAR HGB CONC 33 g/dL (32-36); MEAN CORPUSCULAR VOLUME 87 fL (80-99); MEAN PLATELET VOLUME 9.7 fL (9.0-12.2); MONOCYTES # (AUTO) 0.8 10^3/uL (0.0-1.0); MONOCYTES % (AUTO) 9 % (0-12); NEUTROPHILS # (AUTO) 5.5 10^3/uL (1.8-7.8); NEUTROPHILS % (AUTO) 62 % (42-75); PLATELET COUNT 250 10^3/uL (130-400); WHITE BLOOD COUNT 8.8 10^3/uL (4.3-11.0)
[2020-08-02 11:29] LABS: BUN/CREATININE RATIO 22; CALCIUM 9.1 MG/DL (8.5-10.1); CARBON DIOXIDE 24 MMOL/L (21-32); CHLORIDE 105 MMOL/L (98-107); CREATININE SERUM 0.77 MG/DL (0.60-1.30); GFR ESTIMATED > 60; GLUCOSE 105 MG/DL (70-105); POTASSIUM 4.2 MMOL/L (3.6-5.0); SODIUM 141 MMOL/L (135-145)
[~2020-08-19 12:40] MED LIST changes: -GADOBUTROL 10 MMOL/10 ML (GADAVIST) VIAL IV ONE
[2020-08-19 13:06] LABS: BASOPHILS % (AUTO) 0 % (0-10); EOSINOPHILS # (AUTO) 0.3 10^3/uL (0.0-0.3); EOSINOPHILS % (AUTO) 4 % (0-10); HEMATOCRIT 41 % (40-54); HEMOGLOBIN 13.6 g/dL (13.3-17.7); LYMPHOCYTES # (AUTO) 1.6 10^3/uL (1.0-4.0); LYMPHOCYTES % (AUTO) 20 % (12-44); MEAN CORPUSCULAR HEMOGLOBIN 29 pg (25-34); MEAN CORPUSCULAR HGB CONC 33 g/dL (32-36); MEAN CORPUSCULAR VOLUME 88 fL (80-99); MONOCYTES # (AUTO) 0.7 10^3/uL (0.0-1.0); MONOCYTES % (AUTO) 9 % (0-12); NEUTROPHILS # (AUTO) 5.6 10^3/uL (1.8-7.8); NEUTROPHILS % (AUTO) 68 % (42-75); PLATELET COUNT 219 10^3/uL (130-400); WHITE BLOOD COUNT 8.2 10^3/uL (4.3-11.0)
[2020-08-19 13:29] LABS: ALANINE AMINOTRANSFERASE 11 U/L (0-55); ALBUMIN 3.8 GM/DL (3.2-4.5); ALKALINE PHOSPHATASE 56 U/L (40-136); BILIRUBIN,TOTAL 0.3 MG/DL (0.1-1.0); BUN/CREATININE RATIO 14; CALCIUM 8.7 MG/DL (8.5-10.1); CARBON DIOXIDE 24 MMOL/L (21-32); CHLORIDE 106 MMOL/L (98-107); CREATININE SERUM 0.72 MG/DL (0.60-1.30); GFR ESTIMATED > 60; GLUCOSE 179 MG/DL (70-105); SODIUM 141 MMOL/L (135-145); TOTAL PROTEIN 6.4 GM/DL (6.4-8.2)
== END 2020-08-29 | disposition home or self-care (01) ==
LOC: ONC 12:40
PROVIDERS: ATTEND Internal Medicine Hematology & Oncology
DX: C71.9 Malignant neoplasm of brain, unspecified (principal)
CPT/HCPCS: 80048; 80053; 85025; 99213

== ENCOUNTER 2020-09-27 14:48 | Outpatient (RCR) | payer MEDICARE, MEDICAID ==
[2020-09-07 14:47] LABS: BASOPHILS % (AUTO) 0 % (0-10); EOSINOPHILS # (AUTO) 0.3 10^3/uL (0.0-0.3); EOSINOPHILS % (AUTO) 3 % (0-10); HEMATOCRIT 45 % (40-54); HEMOGLOBIN 15.2 g/dL (13.3-17.7); LYMPHOCYTES # (AUTO) 1.8 10^3/uL (1.0-4.0); LYMPHOCYTES % (AUTO) 17 % (12-44); MEAN CORPUSCULAR HEMOGLOBIN 29 pg (25-34); MEAN CORPUSCULAR HGB CONC 34 g/dL (32-36); MEAN CORPUSCULAR VOLUME 87 fL (80-99); MEAN PLATELET VOLUME 9.8 fL (9.0-12.2); MONOCYTES # (AUTO) 0.9 10^3/uL (0.0-1.0); MONOCYTES % (AUTO) 9 % (0-12); NEUTROPHILS # (AUTO) 7.6 10^3/uL (1.8-7.8); NEUTROPHILS % (AUTO) 71 % (42-75); PLATELET COUNT 282 10^3/uL (130-400); WHITE BLOOD COUNT 10.8 10^3/uL (4.3-11.0)
[2020-09-07 15:05] LABS: BUN/CREATININE RATIO 15; CARBON DIOXIDE 22 MMOL/L (21-32); CHLORIDE 108 MMOL/L (98-107); CREATININE SERUM 0.79 MG/DL (0.60-1.30); GFR ESTIMATED > 60; GLUCOSE 131 MG/DL (70-105); POTASSIUM 3.9 MMOL/L (3.6-5.0); SODIUM 142 MMOL/L (135-145)
[2020-09-15 14:32] LABS: BASOPHILS # (AUTO) 0.1 10^3/uL (0.0-0.1); BASOPHILS % (AUTO) 1 % (0-10); EOSINOPHILS # (AUTO) 0.3 10^3/uL (0.0-0.3); EOSINOPHILS % (AUTO) 4 % (0-10); HEMATOCRIT 42 % (40-54); HEMOGLOBIN 13.7 g/dL (13.3-17.7); LYMPHOCYTES # (AUTO) 2.2 10^3/uL (1.0-4.0); LYMPHOCYTES % (AUTO) 26 % (12-44); MEAN CORPUSCULAR HEMOGLOBIN 29 pg (25-34); MEAN CORPUSCULAR HGB CONC 33 g/dL (32-36); MEAN CORPUSCULAR VOLUME 87 fL (80-99); MONOCYTES # (AUTO) 0.7 10^3/uL (0.0-1.0); MONOCYTES % (AUTO) 9 % (0-12); NEUTROPHILS # (AUTO) 5.1 10^3/uL (1.8-7.8); NEUTROPHILS % (AUTO) 60 % (42-75); PLATELET COUNT 238 10^3/uL (130-400); WHITE BLOOD COUNT 8.5 10^3/uL (4.3-11.0)
[2020-09-15 14:53] LABS: ALANINE AMINOTRANSFERASE 14 U/L (0-55); ALBUMIN 3.9 GM/DL (3.2-4.5); ALKALINE PHOSPHATASE 62 U/L (40-136); BILIRUBIN,TOTAL 0.3 MG/DL (0.1-1.0); BUN/CREATININE RATIO 19; CALCIUM 8.8 MG/DL (8.5-10.1); CARBON DIOXIDE 27 MMOL/L (21-32); CHLORIDE 106 MMOL/L (98-107); CREATININE SERUM 0.79 MG/DL (0.60-1.30); GFR ESTIMATED > 60; GLUCOSE 112 MG/DL (70-105); POTASSIUM 3.8 MMOL/L (3.6-5.0); SODIUM 141 MMOL/L (135-145); TOTAL PROTEIN 6.5 GM/DL (6.4-8.2)
[2020-09-27 15:15] LABS: BASOPHILS % (AUTO) 0 % (0-10); EOSINOPHILS # (AUTO) 0.3 10^3/uL (0.0-0.3); EOSINOPHILS % (AUTO) 3 % (0-10); HEMATOCRIT 46 % (40-54); HEMOGLOBIN 15.3 g/dL (13.3-17.7); LYMPHOCYTES # (AUTO) 1.9 10^3/uL (1.0-4.0); LYMPHOCYTES % (AUTO) 17 % (12-44); MEAN CORPUSCULAR HEMOGLOBIN 29 pg (25-34); MEAN CORPUSCULAR HGB CONC 34 g/dL (32-36); MEAN CORPUSCULAR VOLUME 87 fL (80-99); MEAN PLATELET VOLUME 9.8 fL (9.0-12.2); MONOCYTES # (AUTO) 0.9 10^3/uL (0.0-1.0); MONOCYTES % (AUTO) 8 % (0-12); NEUTROPHILS % (AUTO) 71 % (42-75); PLATELET COUNT 280 10^3/uL (130-400); WHITE BLOOD COUNT 11.2 10^3/uL (4.3-11.0)
[2020-09-27 15:20] LABS: BUN/CREATININE RATIO 17; CALCIUM 9.2 MG/DL (8.5-10.1); CARBON DIOXIDE 27 MMOL/L (21-32); CHLORIDE 104 MMOL/L (98-107); CREATININE SERUM 0.82 MG/DL (0.60-1.30); GFR ESTIMATED > 60; GLUCOSE 121 MG/DL (70-105); POTASSIUM 4.4 MMOL/L (3.6-5.0); SODIUM 139 MMOL/L (135-145)
== END 2020-10-11 15:46 | disposition home or self-care (01) ==
LOC: ONC 14:48
PROVIDERS: ATTEND Internal Medicine Hematology & Oncology
DX: C71.3 Malignant neoplasm of parietal lobe (principal); I10 Essential (primary) hypertension; E11.9 Type 2 diabetes mellitus without complications; J44.9 Chronic obstructive pulmonary disease, unspecified; G47.33 Obstructive sleep apnea (adult) (pediatric); E78.00 Pure hypercholesterolemia, unspecified; I25.2 Old myocardial infarction; I25.10 Atherosclerotic heart disease of native coronary artery without angina pectoris; E78.49 Other hyperlipidemia; Z98.890 Other specified postprocedural states; Z92.21 Personal history of antineoplastic chemotherapy
CPT/HCPCS: 80048; 80053; 85025; 99213

== ENCOUNTER → 2020-11-09 | Outpatient (CLI) | payer MEDICARE, MEDICAID ==
[~2020-11-09] MED LIST changes: +GADOBUTROL 10 MMOL/10 ML (GADAVIST) VIAL IV ONE
--- NOTE | 2020-11-09 11:10 | Diagnostic Imaging Report ---
PROCEDURE: MR imaging of the brain with and without contrast. TECHNIQUE: Multiplanar, multisequence MR imaging of the brain was performed with and without contrast. INDICATION: Malignant neoplasm of the parietal lobe. COMPARISON: MRI brain 02/23/2020, 05/17/2020, 08/17/2020. FINDINGS: Postoperative findings in the left parietal craniotomy and underlying resection bed in the left parietal lobe. There remains amorphous enhancement about the resection cavity which has decreased in size. For example, this previously measured 0.9 cm x 1.9 cm axillary compared to 1.4 x 2.3 cm on 08/17/2020 when measured in a similar fashion. A smaller region of enhancement in the left periventricular region now measures 1.2 x 0.6 cm, previously 1.0 x 2.1 cm. Stable T2 hyperintensity/scoliosis in the left parietal and occipital lobe. Small amount of extra-axial fluid overlying the postoperative changes measures 0.5 cm in thickness. No restricted water diffusion. Tiny amount of susceptibility artifact consistent with the expected postoperative blood products. No hydrocephalus. Normal intracranial flow voids. The orbits are unremarkable on this nondedicated exam. Minimal mucosal thickening in the right maxillary sinus. The mastoids are clear. IMPRESSION: Persistent but decreasing amorphous enhancement about the postoperative changes in the left parietal lobe, measurements above. Dictated by: Dictated on workstation # [id number]
== END ==
LOC: RAD 09:22
PROVIDERS: ATTEND Nurse Practitioner Adult Health
DX: Z51.11 Encounter for antineoplastic chemotherapy (principal); C71.3 Malignant neoplasm of parietal lobe
CPT/HCPCS: 70553

== ENCOUNTER 2021-01-06 09:18 | Outpatient (RCR) | payer MEDICARE, MEDICAID ==
[2020-10-13 15:59] LABS: ALANINE AMINOTRANSFERASE 14 U/L (0-55); ALKALINE PHOSPHATASE 68 U/L (40-136); BILIRUBIN,TOTAL 0.3 MG/DL (0.1-1.0); BUN/CREATININE RATIO 19; CALCIUM 9.1 MG/DL (8.5-10.1); CARBON DIOXIDE 28 MMOL/L (21-32); CHLORIDE 107 MMOL/L (98-107); CREATININE SERUM 0.74 MG/DL (0.60-1.30); GFR ESTIMATED > 60; GLUCOSE 125 MG/DL (70-105); POTASSIUM 4.1 MMOL/L (3.6-5.0); SODIUM 142 MMOL/L (135-145)
[2020-10-13 16:08] LABS: BASOPHILS # (AUTO) 0.1 10^3/uL (0.0-0.1); BASOPHILS % (AUTO) 1 % (0-10); EOSINOPHILS # (AUTO) 0.5 10^3/uL (0.0-0.3); EOSINOPHILS % (AUTO) 4 % (0-10); HEMATOCRIT 43 % (40-54); HEMOGLOBIN 14.1 g/dL (13.3-17.7); LYMPHOCYTES % (AUTO) 19 % (12-44); MEAN CORPUSCULAR HEMOGLOBIN 28 pg (25-34); MEAN CORPUSCULAR HGB CONC 33 g/dL (32-36); MEAN CORPUSCULAR VOLUME 86 fL (80-99); MONOCYTES # (AUTO) 0.8 10^3/uL (0.0-1.0); MONOCYTES % (AUTO) 8 % (0-12); NEUTROPHILS # (AUTO) 7.3 10^3/uL (1.8-7.8); NEUTROPHILS % (AUTO) 69 % (42-75); PLATELET COUNT 287 10^3/uL (130-400); WHITE BLOOD COUNT 10.6 10^3/uL (4.3-11.0)
[2020-10-25 11:22] LABS: BASOPHILS # (AUTO) 0.1 10^3/uL (0.0-0.1); BASOPHILS % (AUTO) 1 % (0-10); EOSINOPHILS # (AUTO) 0.6 10^3/uL (0.0-0.3); EOSINOPHILS % (AUTO) 6 % (0-10); HEMATOCRIT 42 % (40-54); HEMOGLOBIN 13.7 g/dL (13.3-17.7); LYMPHOCYTES # (AUTO) 1.6 10^3/uL (1.0-4.0); LYMPHOCYTES % (AUTO) 16 % (12-44); MEAN CORPUSCULAR HEMOGLOBIN 29 pg (25-34); MEAN CORPUSCULAR HGB CONC 33 g/dL (32-36); MEAN CORPUSCULAR VOLUME 88 fL (80-99); MEAN PLATELET VOLUME 9.4 fL (9.0-12.2); MONOCYTES # (AUTO) 0.8 10^3/uL (0.0-1.0); MONOCYTES % (AUTO) 8 % (0-12); NEUTROPHILS # (AUTO) 7.2 10^3/uL (1.8-7.8); NEUTROPHILS % (AUTO) 70 % (42-75); PLATELET COUNT 276 10^3/uL (130-400); WHITE BLOOD COUNT 10.4 10^3/uL (4.3-11.0)
[2020-10-25 11:35] LABS: BUN/CREATININE RATIO 23; CALCIUM 8.9 MG/DL (8.5-10.1); CARBON DIOXIDE 26 MMOL/L (21-32); CHLORIDE 106 MMOL/L (98-107); CREATININE SERUM 0.74 MG/DL (0.60-1.30); GFR ESTIMATED > 60; GLUCOSE 136 MG/DL (70-105); POTASSIUM 4.3 MMOL/L (3.6-5.0); SODIUM 140 MMOL/L (135-145)
[2020-11-11 09:28] LABS: BASOPHILS # (AUTO) 0.1 10^3/uL (0.0-0.1); BASOPHILS % (AUTO) 1 % (0-10); EOSINOPHILS # (AUTO) 0.4 10^3/uL (0.0-0.3); EOSINOPHILS % (AUTO) 5 % (0-10); HEMATOCRIT 45 % (40-54); HEMOGLOBIN 14.6 g/dL (13.3-17.7); LYMPHOCYTES # (AUTO) 2.1 10^3/uL (1.0-4.0); LYMPHOCYTES % (AUTO) 22 % (12-44); MEAN CORPUSCULAR HEMOGLOBIN 29 pg (25-34); MEAN CORPUSCULAR HGB CONC 32 g/dL (32-36); MEAN CORPUSCULAR VOLUME 89 fL (80-99); MEAN PLATELET VOLUME 9.7 fL (9.0-12.2); MONOCYTES # (AUTO) 0.8 10^3/uL (0.0-1.0); MONOCYTES % (AUTO) 8 % (0-12); NEUTROPHILS # (AUTO) 6.2 10^3/uL (1.8-7.8); NEUTROPHILS % (AUTO) 65 % (42-75); PLATELET COUNT 296 10^3/uL (130-400); WHITE BLOOD COUNT 9.6 10^3/uL (4.3-11.0)
[2020-11-11 09:46] LABS: ALANINE AMINOTRANSFERASE 11 U/L (0-55); ALKALINE PHOSPHATASE 61 U/L (40-136); BILIRUBIN,TOTAL 0.3 MG/DL (0.1-1.0); BUN/CREATININE RATIO 25; CALCIUM 9.2 MG/DL (8.5-10.1); CARBON DIOXIDE 25 MMOL/L (21-32); CHLORIDE 108 MMOL/L (98-107); CREATININE SERUM 0.83 MG/DL (0.60-1.30); GFR ESTIMATED > 60; GLUCOSE 149 MG/DL (70-105); SODIUM 143 MMOL/L (135-145); TOTAL PROTEIN 7.1 GM/DL (6.4-8.2)
[2020-12-09 11:03] LABS: BASOPHILS # (AUTO) 0.1 10^3/uL (0.0-0.1); BASOPHILS % (AUTO) 1 % (0-10); EOSINOPHILS # (AUTO) 0.4 10^3/uL (0.0-0.3); EOSINOPHILS % (AUTO) 4 % (0-10); HEMATOCRIT 42 % (40-54); HEMOGLOBIN 13.9 g/dL (13.3-17.7); LYMPHOCYTES # (AUTO) 1.7 10^3/uL (1.0-4.0); LYMPHOCYTES % (AUTO) 17 % (12-44); MEAN CORPUSCULAR HEMOGLOBIN 29 pg (25-34); MEAN CORPUSCULAR HGB CONC 33 g/dL (32-36); MEAN CORPUSCULAR VOLUME 87 fL (80-99); MEAN PLATELET VOLUME 9.8 fL (9.0-12.2); MONOCYTES # (AUTO) 0.9 10^3/uL (0.0-1.0); MONOCYTES % (AUTO) 9 % (0-12); NEUTROPHILS # (AUTO) 6.9 10^3/uL (1.8-7.8); NEUTROPHILS % (AUTO) 69 % (42-75); PLATELET COUNT 223 10^3/uL (130-400); WHITE BLOOD COUNT 9.9 10^3/uL (4.3-11.0)
[2020-12-09 11:27] LABS: ALANINE AMINOTRANSFERASE 11 U/L (0-55); ALBUMIN 3.8 GM/DL (3.2-4.5); ALKALINE PHOSPHATASE 62 U/L (40-136); BILIRUBIN,TOTAL 0.3 MG/DL (0.1-1.0); BUN/CREATININE RATIO 15; CALCIUM 8.7 MG/DL (8.5-10.1); CARBON DIOXIDE 26 MMOL/L (21-32); CHLORIDE 108 MMOL/L (98-107); CREATININE SERUM 0.79 MG/DL (0.60-1.30); GFR ESTIMATED > 60; GLUCOSE 138 MG/DL (70-105); POTASSIUM 3.7 MMOL/L (3.6-5.0); SODIUM 144 MMOL/L (135-145); TOTAL PROTEIN 6.6 GM/DL (6.4-8.2)
[2020-12-27 14:29] LABS: BASOPHILS % (AUTO) 0 % (0-10); EOSINOPHILS # (AUTO) 0.2 10^3/uL (0.0-0.3); EOSINOPHILS % (AUTO) 4 % (0-10); HEMATOCRIT 44 % (40-54); HEMOGLOBIN 14.5 g/dL (13.3-17.7); LYMPHOCYTES # (AUTO) 1.3 X 10^3 (1.0-4.0); LYMPHOCYTES % (AUTO) 20 % (12-44); MEAN CORPUSCULAR HEMOGLOBIN 29 pg (25-34); MEAN CORPUSCULAR HGB CONC 33 g/dL (32-36); MEAN CORPUSCULAR VOLUME 87 fL (80-99); MEAN PLATELET VOLUME 9.3 fL (9.0-12.2); MONOCYTES # (AUTO) 0.8 X 10^3 (0.0-1.0); MONOCYTES % (AUTO) 12 % (0-12); NEUTROPHILS # (AUTO) 4.1 X 10^3 (1.8-7.8); NEUTROPHILS % (AUTO) 64 % (42-75); PLATELET COUNT 251 10^3/uL (130-400); WHITE BLOOD COUNT 6.4 10^3/uL (4.3-11.0)
[2020-12-27 14:30] LABS: BUN/CREATININE RATIO 17; CARBON DIOXIDE 25 MMOL/L (21-32); CHLORIDE 105 MMOL/L (98-107); CREATININE SERUM 0.78 MG/DL (0.60-1.30); GFR ESTIMATED > 60; GLUCOSE 123 MG/DL (70-105); POTASSIUM 4.4 MMOL/L (3.6-5.0); SODIUM 140 MMOL/L (135-145)
[~2021-01-06 09:18] MED LIST changes: -GADOBUTROL 10 MMOL/10 ML (GADAVIST) VIAL IV ONE; -GEMF600T8; +GEMF600T88; -ISOS30TA3 PO; +ISOS30TA82 PO; -LISI-552; -LISI-552 PO; -LISI10TA2 PO; +LISI10TA25 PO; +LISI20TA26; +LISI20TA26 PO
[2021-01-06 09:29] LABS: BASOPHILS # (AUTO) 0.1 10^3/uL (0.0-0.1); BASOPHILS % (AUTO) 0 % (0-10); EOSINOPHILS # (AUTO) 0.3 10^3/uL (0.0-0.3); EOSINOPHILS % (AUTO) 3 % (0-10); HEMATOCRIT 45 % (40-54); HEMOGLOBIN 14.6 g/dL (13.3-17.7); LYMPHOCYTES # (AUTO) 1.9 10^3/uL (1.0-4.0); LYMPHOCYTES % (AUTO) 17 % (12-44); MEAN CORPUSCULAR HEMOGLOBIN 29 pg (25-34); MEAN CORPUSCULAR HGB CONC 33 g/dL (32-36); MEAN CORPUSCULAR VOLUME 88 fL (80-99); MEAN PLATELET VOLUME 9.4 fL (9.0-12.2); MONOCYTES # (AUTO) 0.9 10^3/uL (0.0-1.0); MONOCYTES % (AUTO) 8 % (0-12); NEUTROPHILS # (AUTO) 8.1 10^3/uL (1.8-7.8); NEUTROPHILS % (AUTO) 72 % (42-75); PLATELET COUNT 251 10^3/uL (130-400); WHITE BLOOD COUNT 11.3 10^3/uL (4.3-11.0)
[2021-01-06 09:46] LABS: ALANINE AMINOTRANSFERASE 13 U/L (0-55); ALBUMIN 3.9 GM/DL (3.2-4.5); ALKALINE PHOSPHATASE 60 U/L (40-136); BILIRUBIN,TOTAL 0.3 MG/DL (0.1-1.0); BUN/CREATININE RATIO 18; CALCIUM 8.7 MG/DL (8.5-10.1); CARBON DIOXIDE 26 MMOL/L (21-32); CHLORIDE 107 MMOL/L (98-107); CREATININE SERUM 0.79 MG/DL (0.60-1.30); GFR ESTIMATED > 60; GLUCOSE 137 MG/DL (70-105); SODIUM 143 MMOL/L (135-145); TOTAL PROTEIN 6.8 GM/DL (6.4-8.2)
== END 2021-01-11 | disposition home or self-care (01) ==
LOC: ONC 09:18
PROVIDERS: ATTEND Internal Medicine Hematology & Oncology
DX: C71.3 Malignant neoplasm of parietal lobe (principal); I10 Essential (primary) hypertension; E11.9 Type 2 diabetes mellitus without complications; J44.9 Chronic obstructive pulmonary disease, unspecified; G47.33 Obstructive sleep apnea (adult) (pediatric); E78.00 Pure hypercholesterolemia, unspecified; I25.2 Old myocardial infarction; I25.10 Atherosclerotic heart disease of native coronary artery without angina pectoris; Z98.890 Other specified postprocedural states; Z92.21 Personal history of antineoplastic chemotherapy; Z95.5 Presence of coronary angioplasty implant and graft
CPT/HCPCS: 80053; 85025; G0463; 80048; 99213

== ENCOUNTER → 2021-01-31 | Outpatient (CLI) | payer MEDICARE, MEDICAID ==
[~2021-01-31] MED LIST changes: +GADOBUTROL 7.5 MMOL/7.5 ML (GADAVIST) VIAL IV ONE
--- NOTE | 2021-01-31 10:46 | Diagnostic Imaging Report ---
PROCEDURE: MR imaging of the brain with and without contrast. TECHNIQUE: Multiplanar, multisequence MR imaging of the brain was performed with and without contrast. INDICATION: Brain tumor, with surgery in November 2019. Correlation is made with prior MRI brain from 11/09/2020. Postsurgical changes of the left parietal craniotomy and tumor resection is again noted. Small area of periventricular enhancement previously described remaining small at 10 mm x 3 mm compared with 12 mm x 5 mm on prior. However, there is worsening amorphous enhancement adjacent to this area and at the tumor bed measuring 2.9 x 1.5 cm compared with 1.9 x 0.9 cm on prior. Cephalocaudal extent is now approximately 3.9 cm compared with 2.9 cm on prior. The right cerebral hemisphere is unremarkable. Ventricular size is stable. There is no midline shift. No acute intra-axial or extra-axial hemorrhage is detected. There is no diffusion restriction. The normal expected flow-voids in the carotid siphons are seen. A moderate FLAIR and T2 signal at the surgical bed is noted consistent with vasogenic edema and post-therapeutic changes. Corpus callosum is unremarkable. Sella and parasellar structures are unremarkable. IMPRESSION: Worsening amorphous enhancement at the tumor bed in the posterior parietal region on the left consistent with tumor progression. No midline shift is detected. Dictated by: Dictated on workstation # [id number]
== END ==
LOC: RAD 09:30
PROVIDERS: ATTEND Internal Medicine Hematology & Oncology
DX: C71.9 Malignant neoplasm of brain, unspecified (principal)
CPT/HCPCS: 70553

== ENCOUNTER 2021-02-14 05:43 | Outpatient (CLI) | payer MEDICARE, MEDICAID ==
[~2021-02-14] VITALS: Ht 175.3 cm; Wt 76.4 kg
[~2021-02-14 05:43] MED LIST changes: -GADOBUTROL 7.5 MMOL/7.5 ML (GADAVIST) VIAL IV ONE
[2021-02-14] MEDS ORDERED: DIAZ5TAB49 PO (15:07)
[2021-02-14] MEDS ORDERED: METF-399 PO (15:07)
[2021-02-14] MEDS ORDERED: OXYC5TAB PO (15:07)
[2021-02-14] MEDS ORDERED: CHLO10TA10 PO (15:07)
[2021-02-14] MEDS ORDERED: DILT120T11 PO (15:07)
[2021-02-14] MEDS ORDERED: ZOLP10TA PO (15:07)
[2021-02-14] MEDS ORDERED: FAMO40TA72 PO (15:07)
[2021-02-14] MEDS ORDERED: ONDA8TAB13 PO (15:07)
[2021-02-14] MEDS ORDERED: RT-ALBUINH IH (15:07)
== END 2021-02-14 16:45 | disposition home or self-care (01) ==
LOC: PREOP 05:43
PROVIDERS: ATTEND Surgery
DX: Z01.818 Encounter for other preprocedural examination (principal)

== ENCOUNTER 2021-02-17 10:55 | Day surgery (SDC) | payer MEDICARE, MEDICAID ==
[2021-02-17] VITALS (7 sets, daily range): BP systolic 119–132; BP diastolic 65–78
[~2021-02-17] VITALS: Ht 175.3 cm; Wt 76.4 kg
[~2021-02-17 10:55] MED LIST changes: +CHLO10TA10 PO; +DIAZ5TAB49 PO; +DILT120T11 PO; +FAMO40TA72 PO; +OXYC5TAB PO; +RT-ALBUINH IH; +ZOLP10TA PO
--- NOTE | 2021-02-17 11:12 | Progress Note-Pre Operative ---
Pre-Operative Progress Note H&P Reviewed The H&P was reviewed, patient examined and no changes noted. Date Seen by Provider: February 17, 2021 Time Seen by Provider: 11:12 Date H&P Reviewed: February 17, 2021 Time H&P Reviewed: 11:12 Pre-Operative Diagnosis: GLIOBLASTOMA BRAIN SHRUTHI VALLES DO February 17, 2021 11:12
[2021-02-17] MEDS ORDERED: ceFAZolin INJECTION 1,000 MG in WATER (STERILE) FOR INJECTION 10 ML IV ONE (11:15)
[2021-02-17] MEDS: LACTATED RINGERS 1,000 ML IV PRN ×2 (11:34→14:00)
[2021-02-17] MEDS ORDERED: HEParin (CENTRAL IV FLUSH) 500 UNIT/5 ML SYR ONE (12:46)
[2021-02-17] MEDS ORDERED: 0.9% SODIUM CHLORIDE PF INJ 20 ML VIAL ONE (12:46)
[2021-02-17] MEDS ORDERED: LIDOCAINE/EPI 1%-1:100,000 (XYLOCAINE) 20ML ONE (12:46)
[2021-02-17] MEDS ORDERED: WATER (STERILE) FOR INJECTION 10 ML ONE (13:30)
[2021-02-17] MEDS ORDERED: ceFAZolin INJECTION 1,000 MG ONE (13:30)
[2021-02-17] MEDS ORDERED: PROPOFOL INJECTION 50 ML IV ONE (13:38)
[2021-02-17] MEDS ORDERED: MIDAZOLAM 2 MG/2 ML (VERSED) VIAL ONE (13:50)
[2021-02-17] MEDS ORDERED: fentaNYL INJ 100 MCG/2 ML AMP ONE (13:50)
[2021-02-17] MEDS ORDERED: proPOfol 200 MG/20 ML (DIPRIVAN) VIAL IV ONE (14:21)
--- NOTE | 2021-02-17 14:37 | Discharge Inst-Simple/Standard ---
Discharge Inst-Standard Patient Instructions/Follow Up Plan of Care/Instructions/FU: 2 weeks Edel Ice pack on 15 min off 30 min and repeat for first 48 hours. This will reduce swelling and discomfort. Activity as Tolerated: No Discharge Diet: Regular Diet Other Inst to Patient Follow up Appt: Make appointment for 2 week. Instructions: No lifting greater than 10 pounds. No strenuous activity. May shower in 24 hours, no tub bath or soaking. Use incentive spirometer at home as directed. No Smoking Skin/Wound Care: You have special glue over your incision that will fall off on it's own. Ice pack on 15 min off 30 min and repeat for first 48 hours. This will reduce swelling and discomfort. Symptoms to Report: Appetite Changes, Extremity Discoloration, Numbness/Tingling, Swelling Increased, Bleeding Excessive, Eyesight Changes, Pain Increased, Urine Color Change, Constipation(Persistent), Fever over 101 degree F, Pain/Pressure in chest, Urinating Difficulty, Cough Up/Vomit Blood, Heart Beat Irreg/Pounding, Pain/Pressure in jaw, Vaginal Bleeding Increase, Cramps in feet or legs, Lightheadedness, Pain/Pressure in shoulder, Diarrhea(Persistent), Memory Changes Suddenly, Questions/Concerns, Weight gain consecutive days, Dizziness/Fainting, Nausea/Vomiting, Shortness of Breath, Weight gain over 2 pounds If questions or concerns contact your physician Or seek help at emergency department. SHRUTHI VALLES DO February 17, 2021 14:37
--- NOTE | 2021-02-17 14:40 | Progress Note-Post Operative ---
Post-Operative Progess Note Surgeon (s)/Health Care Coordinator (s) Surgeon SHRUTHI VALLES DO Health Care Coordinator: na Pre-Operative Diagnosis GLIOBLASTOMA BRAIN Post-Operative Diagnosis same Procedure & Operative Findings Date of Procedure 02/17/21 Procedure Performed/Findings PROCEDURE: Right internal jugular port placement using ultrasound guidance. COMPLICATIONS: None. INDICATIONS: The patient is a 55 year old male needing port. Patient understands the risks and benefits of port placement and wished to proceed with the procedure. Consent was signed on the chart. PROCEDURE: The patient was taken to the operating suite, was prepped and draped in the sterile fashion. A surgical pause was performed. Ultrasound was used to locate the internal jugular vein. Once located anesthetic was infiltrated above it. Using micro-access kit, the right internal vein was accessed. Dark nonpulsatile blood was withdrawn. The wire was inserted. Fluoroscopy assured proper placement. The needle was removed. The micro-access dilator was advanced over the wire and the wire was removed. The regular wire was inserted and fluoroscopy assured proper placement. The wire was then secured. Local anesthetic was used to anesthetize from the neck for tunneling down to the right chest and for pocket creation. A 15 blade scalpel was used to make an incision over the right chest. Cautery was used to dissect down to the pectoral fascia. A pocket was created with blunt dissection. The dilator sheath was then advanced over the wire under fluoroscopy and the dilator and wire were removed. The Groshong catheter was inserted through the sheath and the sheath was then removed. The Groshong wire was removed. The catheter was then tunneled to the right chest pocket. Fluoroscopy was used to cut to length and this was then attached to the port which was then placed within the pocket. The port was then accessed without difficulty. It was then flushed with saline and then heparin. The subcutaneous tissues were then reapproximated using 3-0 Vicryl. The areas were then washed and dried. Skin Affix was placed over incision. The insertion point of the neck Skin Affix was placed over the incision. The patient tolerated the procedure well without complication and was taken to recovery room in stable condition. Chest x-ray is pending. Anesthesia Type mac c local Estimated Blood Loss Estimated blood loss (mL): minimal Specimens/Packing Specimens Removed SHRUTHI Calderon DO February 17, 2021 14:40
[2021-02-17] MEDS ORDERED: ONDANSETRON 4 MG/2 ML (SDV) Z0FRAN IVP PRN (14:45)
[2021-02-17] MEDS ORDERED: morphine INJ 10 MG/ML 1ML (SYR OR VIAL) IVP ONE (14:45)
--- NOTE | 2021-02-17 14:45 | Anesthesia-General Post-Op ---
MAC Patient Condition Mental Status/LOC: Same as Preop Cardiovascular: Satisfactory Nausea/Vomiting: Absent Respiratory: Satisfactory Pain: Controlled Complications: Absent Post Op Complications Complications None Follow Up Care/Instructions Patient Instructions None needed. Anesthesiology Discharge Order Discharge Order Patient is doing well, no complaints, stable vital signs, no apparent adverse anesthesia problems. No complications reported per nursing. MARKO WIGGINS CRNA February 17, 2021 14:45
--- NOTE | 2021-02-17 15:06 | Diagnostic Imaging Report ---
INDICATION: Port placement. TIME OF EXAM: 2:50 PM Correlation is made with prior chest 11/17/2019. Right chest wall port has tip overlying SVC. There is no pneumothorax. Lungs are clear. There is no effusion. IMPRESSION: Port placement. No pneumothorax is identified. Dictated by: Dictated on workstation # [id number]
--- NOTE | 2021-02-17 15:10 | Diagnostic Imaging Report ---
INDICATION: Fluoroscopy for port placement. Fluoroscopy was provided in the OR during a right chest wall port placement. 22 seconds of fluoroscopic time was utilized. A single image was obtained demonstrating a right chest wall port with tip overlying SVC. IMPRESSION: Fluoroscopy during port placement. Dictated by: Dictated on workstation # [id number]
== END 2021-02-17 15:40 | disposition home or self-care (01) ==
LOC: SDC 10:55
PROVIDERS: ATTEND Surgery
DX: C71.9 Malignant neoplasm of brain, unspecified (principal); I10 Essential (primary) hypertension; E78.5 Hyperlipidemia, unspecified; I48.91 Unspecified atrial fibrillation; G47.33 Obstructive sleep apnea (adult) (pediatric); J44.9 Chronic obstructive pulmonary disease, unspecified; K21.9 Gastro-esophageal reflux disease without esophagitis; E11.9 Type 2 diabetes mellitus without complications; E83.42 Hypomagnesemia; I25.119 Atherosclerotic heart disease of native coronary artery with unspecified angina pectoris; F17.210 Nicotine dependence, cigarettes, uncomplicated; Z95.5 Presence of coronary angioplasty implant and graft; Z90.89 Acquired absence of other organs; Z79.84 Long term (current) use of oral hypoglycemic drugs; Z79.899 Other long term (current) drug therapy; Z88.8 Allergy status to other drugs, medicaments and biological substances; Z91.030 Bee allergy status; Z79.82 Long term (current) use of aspirin; Z79.891 Long term (current) use of opiate analgesic; Z96.659 Presence of unspecified artificial knee joint; Z79.02 Long term (current) use of antithrombotics/antiplatelets; Z79.01 Long term (current) use of anticoagulants
CPT/HCPCS: 36561; 71045; 76000; 82947; 87081; C1788

== ENCOUNTER 2021-04-19 13:48 | Outpatient (RCR) | payer MEDICARE, MEDICAID ==
[2021-01-20 11:44] LABS: BASOPHILS % (AUTO) 0 % (0-10); EOSINOPHILS # (AUTO) 0.4 10^3/uL (0.0-0.3); EOSINOPHILS % (AUTO) 3 % (0-10); HEMATOCRIT 47 % (40-54); HEMOGLOBIN 15.4 g/dL (13.3-17.7); LYMPHOCYTES # (AUTO) 2.1 10^3/uL (1.0-4.0); LYMPHOCYTES % (AUTO) 20 % (12-44); MEAN CORPUSCULAR HEMOGLOBIN 28 pg (25-34); MEAN CORPUSCULAR HGB CONC 33 g/dL (32-36); MEAN CORPUSCULAR VOLUME 87 fL (80-99); MEAN PLATELET VOLUME 9.5 fL (9.0-12.2); MONOCYTES % (AUTO) 9 % (0-12); NEUTROPHILS # (AUTO) 7.1 10^3/uL (1.8-7.8); NEUTROPHILS % (AUTO) 67 % (42-75); PLATELET COUNT 263 10^3/uL (130-400); WHITE BLOOD COUNT 10.6 10^3/uL (4.3-11.0)
[2021-01-20 12:04] LABS: BUN/CREATININE RATIO 21; CALCIUM 8.8 MG/DL (8.5-10.1); CARBON DIOXIDE 38 MMOL/L (21-32); CHLORIDE 106 MMOL/L (98-107); CREATININE SERUM 0.77 MG/DL (0.60-1.30); GFR ESTIMATED > 60; GLUCOSE 117 MG/DL (70-105); POTASSIUM 3.8 MMOL/L (3.6-5.0); SODIUM 141 MMOL/L (135-145)
[2021-02-03 09:05] LABS: BASOPHILS % (AUTO) 0 % (0-10); EOSINOPHILS % (AUTO) 0 % (0-10); HEMATOCRIT 45 % (40-54); HEMOGLOBIN 14.6 g/dL (13.3-17.7); LYMPHOCYTES # (AUTO) 1.6 10^3/uL (1.0-4.0); LYMPHOCYTES % (AUTO) 7 % (12-44); MEAN CORPUSCULAR HEMOGLOBIN 29 pg (25-34); MEAN CORPUSCULAR HGB CONC 33 g/dL (32-36); MEAN CORPUSCULAR VOLUME 88 fL (80-99); MEAN PLATELET VOLUME 9.8 fL (9.0-12.2); MONOCYTES # (AUTO) 1.4 10^3/uL (0.0-1.0); MONOCYTES % (AUTO) 6 % (0-12); NEUTROPHILS # (AUTO) 18.6 10^3/uL (1.8-7.8); NEUTROPHILS % (AUTO) 86 % (42-75); PLATELET COUNT 301 10^3/uL (130-400); WHITE BLOOD COUNT 21.7 10^3/uL (4.3-11.0)
[2021-02-22 08:38] LABS: WHITE BLOOD COUNT 6.8 10^3/uL (4.3-11.0)
[2021-02-22 08:39] LABS: BASOPHILS % (AUTO) 1 % (0-10); EOSINOPHILS # (AUTO) 0.3 10^3/uL (0.0-0.3); EOSINOPHILS % (AUTO) 4 % (0-10); HEMATOCRIT 42 % (40-54); HEMOGLOBIN 13.7 G/DL (13.3-17.7); LYMPHOCYTES % (AUTO) 30 % (12-44); MEAN CORPUSCULAR HEMOGLOBIN 29 PG (25-34); MEAN CORPUSCULAR HGB CONC 33 G/DL (32-36); MEAN CORPUSCULAR VOLUME 89 FL (80-99); MEAN PLATELET VOLUME 9.8 FL (7.4-10.4); MONOCYTES # (AUTO) 0.7 X 10^3 (0.0-1.0); MONOCYTES % (AUTO) 10 % (0-12); NEUTROPHILS # (AUTO) 3.7 X 10^3 (1.8-7.8); NEUTROPHILS % (AUTO) 55 % (42-75); PLATELET COUNT 288 10^3/uL (130-400)
[2021-02-22 08:57] LABS: ALANINE AMINOTRANSFERASE 27 U/L (0-55); ALBUMIN 3.9 GM/DL (3.2-4.5); ALKALINE PHOSPHATASE 73 U/L (40-136); BILIRUBIN,TOTAL 0.3 MG/DL (0.1-1.0); BUN/CREATININE RATIO 17; CALCIUM 8.6 MG/DL (8.5-10.1); CARBON DIOXIDE 23 MMOL/L (21-32); CHLORIDE 104 MMOL/L (98-107); CREATININE SERUM 0.75 MG/DL (0.60-1.30); GFR ESTIMATED > 60; GLUCOSE 102 MG/DL (70-105); POTASSIUM 4.3 MMOL/L (3.6-5.0); SODIUM 138 MMOL/L (135-145); TOTAL PROTEIN 7.4 GM/DL (6.4-8.2)
[2021-03-08 10:51] LABS: BASOPHILS # (AUTO) 0.1 10^3/uL (0.0-0.1); BASOPHILS % (AUTO) 0 % (0-10); EOSINOPHILS # (AUTO) 0.3 10^3/uL (0.0-0.3); EOSINOPHILS % (AUTO) 2 % (0-10); HEMATOCRIT 44 % (40-54); HEMOGLOBIN 14.3 g/dL (13.3-17.7); LYMPHOCYTES # (AUTO) 2.2 10^3/uL (1.0-4.0); LYMPHOCYTES % (AUTO) 15 % (12-44); MEAN CORPUSCULAR HEMOGLOBIN 29 pg (25-34); MEAN CORPUSCULAR HGB CONC 33 g/dL (32-36); MEAN CORPUSCULAR VOLUME 87 fL (80-99); MEAN PLATELET VOLUME 9.7 fL (9.0-12.2); MONOCYTES % (AUTO) 7 % (0-12); NEUTROPHILS # (AUTO) 11.3 10^3/uL (1.8-7.8); NEUTROPHILS % (AUTO) 76 % (42-75); PLATELET COUNT 267 10^3/uL (130-400); WHITE BLOOD COUNT 14.9 10^3/uL (4.3-11.0)
[2021-03-08 11:19] LABS: ALANINE AMINOTRANSFERASE 11 U/L (0-55); ALBUMIN 4.1 GM/DL (3.2-4.5); ALKALINE PHOSPHATASE 68 U/L (40-136); BILIRUBIN,TOTAL 0.4 MG/DL (0.1-1.0); BUN/CREATININE RATIO 21; CALCIUM 9.6 MG/DL (8.5-10.1); CARBON DIOXIDE 27 MMOL/L (21-32); CHLORIDE 103 MMOL/L (98-107); CREATININE SERUM 0.81 MG/DL (0.60-1.30); GFR ESTIMATED > 60; GLUCOSE 120 MG/DL (70-105); POTASSIUM 4.8 MMOL/L (3.6-5.0); SODIUM 138 MMOL/L (135-145); TOTAL PROTEIN 7.2 GM/DL (6.4-8.2)
[2021-03-22 11:11] LABS: BASOPHILS % (AUTO) 0 % (0-10); EOSINOPHILS # (AUTO) 0.2 10^3/uL (0.0-0.3); EOSINOPHILS % (AUTO) 2 % (0-10); HEMATOCRIT 43 % (40-54); HEMOGLOBIN 14.3 g/dL (13.3-17.7); LYMPHOCYTES # (AUTO) 1.8 10^3/uL (1.0-4.0); LYMPHOCYTES % (AUTO) 16 % (12-44); MEAN CORPUSCULAR HEMOGLOBIN 29 pg (25-34); MEAN CORPUSCULAR HGB CONC 34 g/dL (32-36); MEAN CORPUSCULAR VOLUME 87 fL (80-99); MEAN PLATELET VOLUME 9.6 fL (9.0-12.2); MONOCYTES # (AUTO) 0.6 10^3/uL (0.0-1.0); MONOCYTES % (AUTO) 5 % (0-12); NEUTROPHILS # (AUTO) 8.6 10^3/uL (1.8-7.8); NEUTROPHILS % (AUTO) 76 % (42-75); PLATELET COUNT 228 10^3/uL (130-400); WHITE BLOOD COUNT 11.3 10^3/uL (4.3-11.0)
[2021-03-22 11:37] LABS: ALANINE AMINOTRANSFERASE 12 U/L (0-55); ALBUMIN 3.8 GM/DL (3.2-4.5); ALKALINE PHOSPHATASE 66 U/L (40-136); BILIRUBIN,TOTAL 0.4 MG/DL (0.1-1.0); BUN/CREATININE RATIO 12; CALCIUM 8.9 MG/DL (8.5-10.1); CARBON DIOXIDE 24 MMOL/L (21-32); CHLORIDE 104 MMOL/L (98-107); CREATININE SERUM 0.77 MG/DL (0.60-1.30); GFR ESTIMATED > 60; GLUCOSE 151 MG/DL (70-105); SODIUM 140 MMOL/L (135-145); TOTAL PROTEIN 6.9 GM/DL (6.4-8.2)
[2021-04-05 14:09] LABS: BASOPHILS % (AUTO) 0 % (0-10); EOSINOPHILS # (AUTO) 0.3 10^3/uL (0.0-0.3); EOSINOPHILS % (AUTO) 3 % (0-10); HEMATOCRIT 45 % (40-54); HEMOGLOBIN 14.7 g/dL (13.3-17.7); LYMPHOCYTES # (AUTO) 2.6 10^3/uL (1.0-4.0); LYMPHOCYTES % (AUTO) 25 % (12-44); MEAN CORPUSCULAR HEMOGLOBIN 29 pg (25-34); MEAN CORPUSCULAR HGB CONC 33 g/dL (32-36); MEAN CORPUSCULAR VOLUME 88 fL (80-99); MEAN PLATELET VOLUME 9.7 fL (9.0-12.2); MONOCYTES # (AUTO) 0.7 10^3/uL (0.0-1.0); MONOCYTES % (AUTO) 7 % (0-12); NEUTROPHILS # (AUTO) 6.7 10^3/uL (1.8-7.8); NEUTROPHILS % (AUTO) 64 % (42-75); PLATELET COUNT 265 10^3/uL (130-400); WHITE BLOOD COUNT 10.4 10^3/uL (4.3-11.0)
[2021-04-05 14:31] LABS: ALANINE AMINOTRANSFERASE 15 U/L (0-55); ALKALINE PHOSPHATASE 59 U/L (40-136); BILIRUBIN,TOTAL 0.3 MG/DL (0.1-1.0); BUN/CREATININE RATIO 23; CALCIUM 9.5 MG/DL (8.5-10.1); CARBON DIOXIDE 24 MMOL/L (21-32); CHLORIDE 105 MMOL/L (98-107); CREATININE SERUM 0.79 MG/DL (0.60-1.30); GFR ESTIMATED > 60; GLUCOSE 115 MG/DL (70-105); POTASSIUM 4.4 MMOL/L (3.6-5.0); SODIUM 137 MMOL/L (135-145); TOTAL PROTEIN 7.1 GM/DL (6.4-8.2)
[~2021-04-19] VITALS: Ht 175.3 cm; Wt 75.7 kg
[~2021-04-19 13:48] MED LIST changes: +BEVACIZUMAB BVZR IV SCH; +NS IV 1000 ML (CANCER CTR) IV SCH; +NS IV SCH
== END 2021-04-20 | disposition home or self-care (01) ==
LOC: ONC 13:48
PROVIDERS: ATTEND Internal Medicine Hematology & Oncology
DX: Z51.11 Encounter for antineoplastic chemotherapy (principal); C71.3 Malignant neoplasm of parietal lobe; I10 Essential (primary) hypertension; E11.9 Type 2 diabetes mellitus without complications; J44.9 Chronic obstructive pulmonary disease, unspecified; G47.33 Obstructive sleep apnea (adult) (pediatric); E78.00 Pure hypercholesterolemia, unspecified; I25.2 Old myocardial infarction; I25.10 Atherosclerotic heart disease of native coronary artery without angina pectoris; F17.210 Nicotine dependence, cigarettes, uncomplicated; Z98.890 Other specified postprocedural states; Z92.21 Personal history of antineoplastic chemotherapy; Z95.5 Presence of coronary angioplasty implant and graft
CPT/HCPCS: 36591; 80048; 80053; 85025; 96375; 96409; 96411

== ENCOUNTER → 2021-04-29 | Outpatient (CLI) | payer MEDICARE, MEDICAID ==
[~2021-04-29] MED LIST changes: -BEVACIZUMAB BVZR IV SCH; +GADOBUTROL 7.5 MMOL/7.5 ML (GADAVIST) VIAL IV ONE; -NS IV 1000 ML (CANCER CTR) IV SCH; -NS IV SCH
--- NOTE | 2021-04-29 10:58 | Diagnostic Imaging Report ---
PROCEDURE: MR imaging of the brain with and without contrast. TECHNIQUE: Multiplanar, multisequence MR imaging of the brain was performed with and without contrast. INDICATION: History of glioblastoma. Started new chemotherapy. Follow-up. COMPARISON: 01/31/2021. FINDINGS: Postsurgical changes of left parietal craniotomy and mass resection from the left parietal lobe are again visualized. There is interval increase in enhancement along the margin of the surgical bed within the left parieto-occipital region measuring 2.9 x 2.0 cm, previously measuring 2.9 x 1.4 cm. The smaller focus of enhancement along the periventricular white matter adjacent to the occipital horn of the left lateral ventricle appears more congruent with the larger area of enhancement and now measures 2.2 x 0.8 cm, previously measuring 1.0 x 0.3 cm. There is overall stable T2 hyperintense signal involving the left parieto-occipital region and involving the splenium of the corpus callosum which crosses the midline. No new separate areas of abnormal T2 hyperintense signal or abnormal enhancement. No evidence of acute hydrocephalous. No midline shift. No evidence of acute ischemia or hemorrhage. The basilar cisterns are symmetric and unremarkable. The sellar and suprasellar regions have a normal appearance. The brainstem and posterior fossa are unremarkable. The paranasal sinuses and mastoid air cells demonstrate normal signal characteristics. The globes and orbits are symmetric and unremarkable. IMPRESSION: 1. Interval increase in enhancing component within the left parieto-occipital region, concerning for disease progression. However, the associated T2 hyperintense signal is stable. Recommend continued follow-up as indicated. 2. No acute ischemia or hemorrhage. No hydrocephalus. Dictated by: Dictated on workstation # [id number]
== END ==
LOC: RAD 09:30
PROVIDERS: ATTEND Nurse Practitioner Adult Health
DX: C71.3 Malignant neoplasm of parietal lobe (principal)
CPT/HCPCS: 70553

== ENCOUNTER → 2021-07-22 | Outpatient (CLI) | payer MEDICARE, MEDICAID ==
[~2021-07-22] MED LIST changes: +GADOBUTROL 15 MMOL/15 ML (GADAVIST) VIAL IV ONE; -GADOBUTROL 7.5 MMOL/7.5 ML (GADAVIST) VIAL IV ONE; -LISI2.5T PO; +LISI2.5T13 PO
--- NOTE | 2021-07-22 12:22 | Diagnostic Imaging Report ---
PROCEDURE: MR imaging of the brain with and without contrast. TECHNIQUE: Multiplanar, multisequence MR imaging of the brain was performed with and without contrast. INDICATION: Glioblastoma. Prior craniotomy. COMPARISON: MRI brain without and with IV contrast 01/31/2021, 04/29/2021. FINDINGS: Since the prior exam, there has been continued interval progression of the enhancing mass centered in the left occipital lobe, also involving the left parietal and temporal lobes. For example, the region of enhancement previously measured 2.9 x 2.0 cm, today 4.7 x 3.1 cm when measured in a similar fashion. There is increasing restricted water diffusion within this mass suggesting hypercellularity. Increasing volume and abnormal T2 signal throughout the left occipital lobe and posterior half of the temporal lobe is also new. The gliosis in the left parietal lobe appears generally stable. No evidence of acute hemorrhage. Normal morphology of the major midline structures, sella, posterior fossa and cerebellar pontine angle. No other abnormal intracranial enhancement. Stable left parietal craniotomy. Bone marrow signal is otherwise unremarkable. Mild mucosal thickening in the ethmoid and maxillary sinuses. The mastoids are clear. Normal intracranial flow voids. No hydrocephalus or extra-axial fluid collections. IMPRESSION: Interval progression of disease with enlarging region of enhancement, increasing volume and T2 signal into the left occipital and posterior left temporal lobe and increasing water diffusion consistent with hypercellularity. Dictated by: Dictated on workstation # [id number]
== END ==
LOC: RAD 09:23
PROVIDERS: ATTEND Nurse Practitioner Adult Health
DX: C71.3 Malignant neoplasm of parietal lobe (principal); Z98.890 Other specified postprocedural states
CPT/HCPCS: 70553

== ENCOUNTER 2021-07-26 10:54 | Outpatient (RCR) | payer MEDICARE, MEDICAID ==
[2021-05-03 09:47] LABS: BASOPHILS # (AUTO) 0.1 10^3/uL (0.0-0.1); BASOPHILS % (AUTO) 1 % (0-10); EOSINOPHILS # (AUTO) 0.4 10^3/uL (0.0-0.3); EOSINOPHILS % (AUTO) 4 % (0-10); HEMATOCRIT 45 % (40-54); HEMOGLOBIN 14.5 g/dL (13.3-17.7); LYMPHOCYTES % (AUTO) 32 % (12-44); MEAN CORPUSCULAR HEMOGLOBIN 29 pg (25-34); MEAN CORPUSCULAR HGB CONC 32 g/dL (32-36); MEAN CORPUSCULAR VOLUME 89 fL (80-99); MEAN PLATELET VOLUME 9.5 fL (9.0-12.2); MONOCYTES % (AUTO) 10 % (0-12); NEUTROPHILS % (AUTO) 53 % (42-75); PLATELET COUNT 273 10^3/uL (130-400); WHITE BLOOD COUNT 9.4 10^3/uL (4.3-11.0)
[2021-05-03 10:08] LABS: ALBUMIN 3.9 GM/DL (3.2-4.5); BILIRUBIN,TOTAL 0.3 MG/DL (0.1-1.0); CALCIUM 9.3 MG/DL (8.5-10.1); CREATININE SERUM 0.81 MG/DL (0.60-1.30); POTASSIUM 4.5 MMOL/L (3.6-5.0); TOTAL PROTEIN 7.2 GM/DL (6.4-8.2)
[2021-05-17 10:03] LABS: BASOPHILS # (AUTO) 0.1 10^3/uL (0.0-0.1); BASOPHILS % (AUTO) 1 % (0-10); EOSINOPHILS # (AUTO) 0.3 10^3/uL (0.0-0.3); EOSINOPHILS % (AUTO) 4 % (0-10); HEMATOCRIT 45 % (40-54); HEMOGLOBIN 14.5 g/dL (13.3-17.7); LYMPHOCYTES # (AUTO) 2.5 10^3/uL (1.0-4.0); LYMPHOCYTES % (AUTO) 32 % (12-44); MEAN CORPUSCULAR HEMOGLOBIN 29 pg (25-34); MEAN CORPUSCULAR HGB CONC 32 g/dL (32-36); MEAN CORPUSCULAR VOLUME 89 fL (80-99); MEAN PLATELET VOLUME 9.7 fL (9.0-12.2); MONOCYTES # (AUTO) 0.7 10^3/uL (0.0-1.0); MONOCYTES % (AUTO) 9 % (0-12); NEUTROPHILS # (AUTO) 4.3 10^3/uL (1.8-7.8); NEUTROPHILS % (AUTO) 55 % (42-75); PLATELET COUNT 217 10^3/uL (130-400); WHITE BLOOD COUNT 7.9 10^3/uL (4.3-11.0)
[2021-05-17 10:18] LABS: CREATININE SERUM 0.59 MG/DL (0.60-1.30); POTASSIUM 3.1 MMOL/L (3.6-5.0)
[2021-05-31 10:03] LABS: BASOPHILS # (AUTO) 0.1 10^3/uL (0.0-0.1); BASOPHILS % (AUTO) 1 % (0-10); EOSINOPHILS # (AUTO) 0.3 10^3/uL (0.0-0.3); EOSINOPHILS % (AUTO) 2 % (0-10); HEMATOCRIT 45 % (40-54); HEMOGLOBIN 15.1 g/dL (13.3-17.7); LYMPHOCYTES # (AUTO) 1.9 10^3/uL (1.0-4.0); LYMPHOCYTES % (AUTO) 17 % (12-44); MEAN CORPUSCULAR HEMOGLOBIN 30 pg (25-34); MEAN CORPUSCULAR HGB CONC 33 g/dL (32-36); MEAN CORPUSCULAR VOLUME 89 fL (80-99); MEAN PLATELET VOLUME 9.5 fL (9.0-12.2); MONOCYTES # (AUTO) 1.1 10^3/uL (0.0-1.0); MONOCYTES % (AUTO) 10 % (0-12); NEUTROPHILS # (AUTO) 7.8 10^3/uL (1.8-7.8); NEUTROPHILS % (AUTO) 70 % (42-75); PLATELET COUNT 234 10^3/uL (130-400); WHITE BLOOD COUNT 11.2 10^3/uL (4.3-11.0)
[2021-05-31 10:24] LABS: BILIRUBIN,TOTAL 0.4 MG/DL (0.1-1.0); CALCIUM 9.5 MG/DL (8.5-10.1); CREATININE SERUM 0.79 MG/DL (0.60-1.30); POTASSIUM 4.4 MMOL/L (3.6-5.0); TOTAL PROTEIN 7.3 GM/DL (6.4-8.2)
[2021-05-31 11:09] LABS: MAGNESIUM 1.6 MG/DL (1.6-2.4)
[2021-06-14 14:08] LABS: BASOPHILS % (AUTO) 0 % (0-10); EOSINOPHILS # (AUTO) 0.2 10^3/uL (0.0-0.3); EOSINOPHILS % (AUTO) 2 % (0-10); HEMATOCRIT 41 % (40-54); HEMOGLOBIN 13.2 g/dL (13.3-17.7); LYMPHOCYTES # (AUTO) 2.3 10^3/uL (1.0-4.0); LYMPHOCYTES % (AUTO) 23 % (12-44); MEAN CORPUSCULAR HEMOGLOBIN 29 pg (25-34); MEAN CORPUSCULAR HGB CONC 32 g/dL (32-36); MEAN CORPUSCULAR VOLUME 90 fL (80-99); MEAN PLATELET VOLUME 9.9 fL (9.0-12.2); MONOCYTES # (AUTO) 0.7 10^3/uL (0.0-1.0); MONOCYTES % (AUTO) 7 % (0-12); NEUTROPHILS # (AUTO) 6.8 10^3/uL (1.8-7.8); NEUTROPHILS % (AUTO) 67 % (42-75); PLATELET COUNT 210 10^3/uL (130-400)
[2021-06-14 14:22] LABS: CALCIUM 9.7 MG/DL (8.5-10.1); CREATININE SERUM 0.85 MG/DL (0.60-1.30); POTASSIUM 4.8 MMOL/L (3.6-5.0)
[2021-06-28 14:38] LABS: BASOPHILS # (AUTO) 0.1 10^3/uL (0.0-0.1); BASOPHILS % (AUTO) 1 % (0-10); EOSINOPHILS # (AUTO) 0.5 10^3/uL (0.0-0.3); EOSINOPHILS % (AUTO) 5 % (0-10); HEMATOCRIT 44 % (40-54); HEMOGLOBIN 14.3 g/dL (13.3-17.7); LYMPHOCYTES # (AUTO) 2.8 10^3/uL (1.0-4.0); LYMPHOCYTES % (AUTO) 23 % (12-44); MEAN CORPUSCULAR HEMOGLOBIN 29 pg (25-34); MEAN CORPUSCULAR HGB CONC 33 g/dL (32-36); MEAN CORPUSCULAR VOLUME 88 fL (80-99); MEAN PLATELET VOLUME 9.3 fL (9.0-12.2); MONOCYTES # (AUTO) 0.7 10^3/uL (0.0-1.0); MONOCYTES % (AUTO) 6 % (0-12); NEUTROPHILS # (AUTO) 7.8 10^3/uL (1.8-7.8); NEUTROPHILS % (AUTO) 65 % (42-75); PLATELET COUNT 315 10^3/uL (130-400)
[2021-06-28 14:56] LABS: ALBUMIN 3.7 GM/DL (3.2-4.5); BILIRUBIN,TOTAL 0.2 MG/DL (0.1-1.0); CALCIUM 9.4 MG/DL (8.5-10.1); CREATININE SERUM 0.74 MG/DL (0.60-1.30); MAGNESIUM 1.6 MG/DL (1.6-2.4); POTASSIUM 5.2 MMOL/L (3.6-5.0); TOTAL PROTEIN 7.2 GM/DL (6.4-8.2)
[~2021-07-26 10:54] MED LIST changes: +BEVACIZUMAB BVZR IV SCH; -GADOBUTROL 15 MMOL/15 ML (GADAVIST) VIAL IV ONE; +NS IV 1000 ML (CANCER CTR) IV SCH; +NS IV SCH
[2021-07-26 11:28] LABS: BASOPHILS # (AUTO) 0.1 10^3/uL (0.0-0.1); BASOPHILS % (AUTO) 0 % (0-10); EOSINOPHILS # (AUTO) 0.3 10^3/uL (0.0-0.3); EOSINOPHILS % (AUTO) 3 % (0-10); HEMATOCRIT 45 % (40-54); LYMPHOCYTES % (AUTO) 15 % (12-44); MEAN CORPUSCULAR HEMOGLOBIN 29 pg (25-34); MEAN CORPUSCULAR HGB CONC 33 g/dL (32-36); MEAN CORPUSCULAR VOLUME 89 fL (80-99); MEAN PLATELET VOLUME 9.5 fL (9.0-12.2); MONOCYTES % (AUTO) 8 % (0-12); NEUTROPHILS # (AUTO) 9.7 10^3/uL (1.8-7.8); NEUTROPHILS % (AUTO) 74 % (42-75); PLATELET COUNT 224 10^3/uL (130-400)
[2021-07-26 11:49] LABS: ALBUMIN 3.8 GM/DL (3.2-4.5); BILIRUBIN,TOTAL 0.4 MG/DL (0.1-1.0); CALCIUM 9.4 MG/DL (8.5-10.1); CREATININE SERUM 0.87 MG/DL (0.60-1.30); MAGNESIUM 1.5 MG/DL (1.6-2.4); POTASSIUM 4.3 MMOL/L (3.6-5.0); TOTAL PROTEIN 7.3 GM/DL (6.4-8.2)
[2021-07-26] MEDS ORDERED: MAGNESIUM SULFATE (CANCER CTR) 2 GM in NS (IVPB) CANCER CENTER 50 ML IV ONE (12:06)
== END 2021-08-01 | disposition home or self-care (01) ==
LOC: ONC 10:54
PROVIDERS: ATTEND Internal Medicine Hematology & Oncology
DX: Z51.11 Encounter for antineoplastic chemotherapy (principal); C71.3 Malignant neoplasm of parietal lobe; I10 Essential (primary) hypertension; E11.9 Type 2 diabetes mellitus without complications; J44.9 Chronic obstructive pulmonary disease, unspecified; E78.00 Pure hypercholesterolemia, unspecified; I25.2 Old myocardial infarction; I25.10 Atherosclerotic heart disease of native coronary artery without angina pectoris; F17.210 Nicotine dependence, cigarettes, uncomplicated; Z98.890 Other specified postprocedural states; Z95.5 Presence of coronary angioplasty implant and graft
CPT/HCPCS: 80053; 85025; 96413; G0463; 36591; 80048; 83735; 96365; 96409

== ENCOUNTER 2021-10-05 14:12 | Outpatient (RCR) | payer MEDICARE, MEDICAID ==
[2021-08-10 13:30] LABS: CLARITY,URINE CLEAR; COLOR,URINE YELLOW; GLUCOSE, URINE (UA) NEGATIVE (NEGATIVE); KETONES,URINE TRACE (NEGATIVE); LEUKOCYTE ESTERASE ,URINE NEGATIVE (NEGATIVE); NITRITE,URINE NEGATIVE (NEGATIVE); PROTEIN,URINE TRACE (NEGATIVE)
[2021-08-10 13:31] LABS: BASOPHILS # (AUTO) 0.1 10^3/uL (0.0-0.1); BASOPHILS % (AUTO) 0 % (0-10); EOSINOPHILS # (AUTO) 0.2 10^3/uL (0.0-0.3); EOSINOPHILS % (AUTO) 1 % (0-10); HEMATOCRIT 45 % (40-54); HEMOGLOBIN 15.1 g/dL (13.3-17.7); LYMPHOCYTES # (AUTO) 2.8 10^3/uL (1.0-4.0); LYMPHOCYTES % (AUTO) 17 % (12-44); MEAN CORPUSCULAR HEMOGLOBIN 30 pg (25-34); MEAN CORPUSCULAR HGB CONC 33 g/dL (32-36); MEAN CORPUSCULAR VOLUME 90 fL (80-99); MEAN PLATELET VOLUME 9.7 fL (9.0-12.2); MONOCYTES # (AUTO) 1.3 10^3/uL (0.0-1.0); MONOCYTES % (AUTO) 8 % (0-12); NEUTROPHILS # (AUTO) 11.8 10^3/uL (1.8-7.8); NEUTROPHILS % (AUTO) 73 % (42-75); PLATELET COUNT 295 10^3/uL (130-400); WHITE BLOOD COUNT 16.2 10^3/uL (4.3-11.0)
[2021-08-10 13:46] LABS: BACTERIA,URINE TRACE /HPF; BILIRUBIN,URINE 1+ (NEGATIVE); WBC,URINE 0-2 /HPF
[2021-08-10 13:50] LABS: BILIRUBIN,TOTAL 0.4 MG/DL (0.1-1.0); CALCIUM 9.8 MG/DL (8.5-10.1); CREATININE SERUM 1.28 MG/DL (0.60-1.30); POTASSIUM 5.3 MMOL/L (3.6-5.0)
[2021-08-24 13:25] LABS: BASOPHILS % (AUTO) 0 % (0-10); EOSINOPHILS # (AUTO) 0.1 10^3/uL (0.0-0.3); EOSINOPHILS % (AUTO) 1 % (0-10); HEMATOCRIT 44 % (40-54); HEMOGLOBIN 14.3 g/dL (13.3-17.7); LYMPHOCYTES # (AUTO) 2.5 10^3/uL (1.0-4.0); LYMPHOCYTES % (AUTO) 18 % (12-44); MEAN CORPUSCULAR HEMOGLOBIN 29 pg (25-34); MEAN CORPUSCULAR HGB CONC 33 g/dL (32-36); MEAN CORPUSCULAR VOLUME 89 fL (80-99); MEAN PLATELET VOLUME 9.7 fL (9.0-12.2); MONOCYTES # (AUTO) 1.2 10^3/uL (0.0-1.0); MONOCYTES % (AUTO) 9 % (0-12); NEUTROPHILS # (AUTO) 9.6 10^3/uL (1.8-7.8); NEUTROPHILS % (AUTO) 71 % (42-75); PLATELET COUNT 214 10^3/uL (130-400); WHITE BLOOD COUNT 13.5 10^3/uL (4.3-11.0)
[2021-08-24 13:45] LABS: CALCIUM 9.2 MG/DL (8.5-10.1); CREATININE SERUM 1.01 MG/DL (0.60-1.30); POTASSIUM 4.9 MMOL/L (3.6-5.0)
[2021-09-07 14:55] LABS: BASOPHILS # (AUTO) 0.1 10^3/uL (0.0-0.1); BASOPHILS % (AUTO) 0 % (0-10); EOSINOPHILS # (AUTO) 0.1 10^3/uL (0.0-0.3); EOSINOPHILS % (AUTO) 1 % (0-10); HEMATOCRIT 44 % (40-54); HEMOGLOBIN 14.2 g/dL (13.3-17.7); LYMPHOCYTES # (AUTO) 2.4 10^3/uL (1.0-4.0); LYMPHOCYTES % (AUTO) 18 % (12-44); MEAN CORPUSCULAR HEMOGLOBIN 29 pg (25-34); MEAN CORPUSCULAR HGB CONC 33 g/dL (32-36); MEAN CORPUSCULAR VOLUME 90 fL (80-99); MEAN PLATELET VOLUME 9.6 fL (9.0-12.2); MONOCYTES % (AUTO) 8 % (0-12); NEUTROPHILS # (AUTO) 9.8 10^3/uL (1.8-7.8); NEUTROPHILS % (AUTO) 73 % (42-75); PLATELET COUNT 292 10^3/uL (130-400); WHITE BLOOD COUNT 13.5 10^3/uL (4.3-11.0)
[2021-09-07 15:13] LABS: ALBUMIN 3.5 GM/DL (3.2-4.5); BILIRUBIN,TOTAL 0.3 MG/DL (0.1-1.0); CALCIUM 9.2 MG/DL (8.5-10.1); CREATININE SERUM 0.84 MG/DL (0.60-1.30); POTASSIUM 4.6 MMOL/L (3.6-5.0)
[2021-09-21 14:21] LABS: BASOPHILS % (AUTO) 0 % (0-10); EOSINOPHILS # (AUTO) 0.2 10^3/uL (0.0-0.3); EOSINOPHILS % (AUTO) 2 % (0-10); HEMATOCRIT 42 % (40-54); HEMOGLOBIN 13.8 g/dL (13.3-17.7); LYMPHOCYTES # (AUTO) 2.2 10^3/uL (1.0-4.0); LYMPHOCYTES % (AUTO) 23 % (12-44); MEAN CORPUSCULAR HEMOGLOBIN 30 pg (25-34); MEAN CORPUSCULAR HGB CONC 33 g/dL (32-36); MEAN CORPUSCULAR VOLUME 92 fL (80-99); MEAN PLATELET VOLUME 9.7 fL (9.0-12.2); MONOCYTES # (AUTO) 0.7 10^3/uL (0.0-1.0); MONOCYTES % (AUTO) 8 % (0-12); NEUTROPHILS # (AUTO) 6.4 10^3/uL (1.8-7.8); NEUTROPHILS % (AUTO) 67 % (42-75); PLATELET COUNT 224 10^3/uL (130-400); WHITE BLOOD COUNT 9.6 10^3/uL (4.3-11.0)
[2021-09-21 14:41] LABS: CALCIUM 8.9 MG/DL (8.5-10.1); CREATININE SERUM 1.02 MG/DL (0.60-1.30); POTASSIUM 4.8 MMOL/L (3.6-5.0)
[2021-10-05 14:51] LABS: BASOPHILS # (AUTO) 0.1 10^3/uL (0.0-0.1); BASOPHILS % (AUTO) 1 % (0-10); EOSINOPHILS # (AUTO) 0.2 10^3/uL (0.0-0.3); EOSINOPHILS % (AUTO) 3 % (0-10); HEMATOCRIT 40 % (40-54); HEMOGLOBIN 13.2 g/dL (13.3-17.7); LYMPHOCYTES # (AUTO) 2.4 X 10^3 (1.0-4.0); LYMPHOCYTES % (AUTO) 29 % (12-44); MEAN CORPUSCULAR HEMOGLOBIN 30 pg (25-34); MEAN CORPUSCULAR HGB CONC 33 g/dL (32-36); MEAN CORPUSCULAR VOLUME 92 fL (80-99); MEAN PLATELET VOLUME 9.8 fL (9.0-12.2); MONOCYTES # (AUTO) 0.7 X 10^3 (0.0-1.0); MONOCYTES % (AUTO) 9 % (0-12); NEUTROPHILS # (AUTO) 4.7 X 10^3 (1.8-7.8); NEUTROPHILS % (AUTO) 58 % (42-75); PLATELET COUNT 207 10^3/uL (130-400); WHITE BLOOD COUNT 8.1 10^3/uL (4.3-11.0)
[2021-10-05 15:12] LABS: ALBUMIN 3.6 GM/DL (3.2-4.5); BILIRUBIN,TOTAL 0.3 MG/DL (0.1-1.0); CALCIUM 8.8 MG/DL (8.5-10.1); CREATININE SERUM 0.77 MG/DL (0.60-1.30); POTASSIUM 4.2 MMOL/L (3.6-5.0); TOTAL PROTEIN 6.6 GM/DL (6.4-8.2)
== END 2021-10-07 | disposition home or self-care (01) ==
LOC: ONC 14:12
PROVIDERS: ATTEND Internal Medicine Hematology & Oncology
DX: Z51.11 Encounter for antineoplastic chemotherapy (principal); C71.3 Malignant neoplasm of parietal lobe; J44.9 Chronic obstructive pulmonary disease, unspecified; I10 Essential (primary) hypertension; E78.00 Pure hypercholesterolemia, unspecified; E11.9 Type 2 diabetes mellitus without complications; I25.2 Old myocardial infarction; F17.200 Nicotine dependence, unspecified, uncomplicated; Z79.01 Long term (current) use of anticoagulants; Z95.5 Presence of coronary angioplasty implant and graft; Z79.899 Other long term (current) drug therapy; Z79.82 Long term (current) use of aspirin; Z79.1 Long term (current) use of non-steroidal anti-inflammatories (NSAID); Z79.84 Long term (current) use of oral hypoglycemic drugs; Z79.891 Long term (current) use of opiate analgesic; Z98.890 Other specified postprocedural states
CPT/HCPCS: 80053; 81000; 85025; 96409; G0463; 36591; 80048; 96413; 99213

== ENCOUNTER 2021-10-08 11:40 | Emergency (ER) | payer MEDICARE, MEDICAID ==
[~2021-10-08 11:40] MED LIST changes: -BEVACIZUMAB BVZR IV SCH; -NS IV 1000 ML (CANCER CTR) IV SCH; -NS IV SCH
== END 2021-10-08 12:20 | disposition left against medical advice (07) ==
LOC: EDUNIT# 11:40 → ER 11:45
DX: R09.81 Nasal congestion (principal); H92.09 Otalgia, unspecified ear

== ENCOUNTER 2021-10-10 13:51 | Emergency (ER) | payer MEDICARE, MEDICAID ==
[~2021-10-10] VITALS: Ht 170.2 cm; Wt 62.1 kg
[2021-10-10] MEDS ORDERED: DOXY100T2 PO (15:51)
--- NOTE | 2021-10-10 15:52 | ED Cough/URI ---
General Chief Complaint: Cough/Cold/Flu Symptoms Stated Complaint: CONGESTION Nursing Triage Note: PT AMB TO RM 7 WITH DAUGHTER WITH COMPLAINT OF NASAL CONGESTION. DAUGHTER STATES PT WAS SEEN AT [facility] AND TESTED NEGATIVE FOR FLU AND COVID. DIAGNOSED WITH ALLERGIES AND PRESCRIBED ANTIBIOTIC AND CLARITIN. STATES PAIN/CONGESTION IS WORSENING. DAUGHTER STATES SHE CALLED DR PALACIOS AND WAS INSTRUCTED TO COME HERE. PT HAS STAGE 4 BRAIN CANCER. History of Present Illness Date Seen by Provider: Oct 10, 2021 Time Seen by Provider: 15:00 Initial Comments 56-year-old male having complaints of sinus pressure and pain causing discomfort into his jaw. He was diagnosed with a sinus infection and has been started on multiple medications, the patient reports having side effects from these so he discontinued them. He was concerned because when he awoke today he was unable to use a [place] pot and get any return from his nostril. He has a history of brain tumor, he is scheduled for an MRI of the brain later this week. He was evaluated at [facility] the walk-in care earlier this afternoon. They are coming here for additional evaluation, as the daughter is concerned something else is going on. She has called the cancer center to have his MRI completed earlier this week. Timing/Duration: other (3-4 days) Severity/Quality: no cough Prior Episodes/Possible Cause: no prior episodes Associated Symptoms: sinus infection Allergies and Home Medications Allergies Coded Allergies: bee pollen (Unverified Allergy, Mild, 02/17/21) ketamine (Verified Allergy, Unknown, 02/17/21) warfarin (Verified Allergy, Unknown, 02/17/21) Patient Home Medication List Home Medication List Reviewed: Yes Albuterol Sulfate (Proair Hfa) 1 Puff Puff, 2 PUFF IH Q4H, (Reported) Entered as Reported by: CARLOS ENCARNACION on 02/14/21 1507 Apixaban (Eliquis) 5 Mg Tablet, 5 MG PO BID, (Reported) Entered as Reported by: ЕКАТЕРИНА HU on 05/01/17 0902 Atorvastatin Calcium (Lipitor) 80 Mg Tablet, 80 MG PO HS, (Reported) Entered as Reported by: FRITZ WILKINSON on 05/21/18 0944 Budesonide/Formoterol Fumarate (Symbicort 160-4.5 Mcg Inhaler) 10.2 Gm Hfa.aer.ad, 2 PUFF IH BID, (Reported) Entered as Reported by: SIDNEY GREEN on 08/03/16 193 Chlorpromazine HCl (Chlorpromazine HCl) 10 Mg Tablet, 10 MG PO DAILY PRN for HICCUPS, (Reported) Entered as Reported by: CARLOS ENCARNACION on 02/14/21 150 Diazepam (Diazepam) 5 Mg Tablet, 5 MG PO HS, (Reported) Entered as Reported by: CARLOS ENCARNACION on 02/14/21 150 Diltiazem HCl (Cardizem) 120 Mg Tablet, 240 MG PO DAILY, (Reported) Entered as Reported by: CARLOS ENCARNACION on 02/14/21 150 Doxycycline Hyclate (Doxycycline Hyclate) 100 Mg Tablet, 100 MG PO BID Prescribed by: MICHELLE BHAGAT on 10/10/21 155 Famotidine (Pepcid) 40 Mg Tablet, 40 MG PO DAILY, (Reported) Entered as Reported by: CARLOS ENCARNACION on 02/14/21 150 Metformin HCl (Metformin HCl) 1,000 Mg Tablet, 1,000 MG PO BID, (Reported) Entered as Reported by: CARLOS ENCARNACION on 02/14/21 150 Metoprolol Succinate (Metoprolol Succinate) 50 Mg Tab.er.24h, 50 MG PO DAILY, (Reported) Entered as Reported by: FRITZ WILKINSON on 12/16/18 1411 Nitroglycerin (Nitroglycerin) 0.4 Mg Tab.subl, 0.4 MG SL UD PRN for CHEST PAIN, (Reported) Entered as Reported by: LEXUS LOPEZ on 09/02/19 0805 Ondansetron (Ondansetron Odt) 8 Mg Tab.rapdis, 8 MG PO Q4H PRN for NAUSEA-1ST LINE, (Reported) Entered as Reported by: CARLOS ENCARNACION on 02/14/21 150 Oxycodone HCl (Oxycodone HCl) 5 Mg Tablet, 10 MG PO Q6H PRN for PAIN, (Reported) Entered as Reported by: CARLOS ENCARNACION on 02/14/21 150 Zolpidem Tartrate (Ambien) 10 Mg Tablet, 10 MG PO HS, (Reported) Entered as Reported by: CARLOS ENCARNACION on 02/14/21 150 Review of Systems Review of Systems Constitutional: no symptoms reported, see HPI EENTM: see HPI, nose congestion, other (sinus congestion wtih maxillary sinus tenderness. ); No nose pain Respiratory: no symptoms reported, see HPI; No cough Cardiovascular: no symptoms reported, see HPI Gastrointestinal: no symptoms reported, see HPI All Other Systems Reviewed Negative Unless Noted: Yes Past Nodyqvq-Lrbbpo-Rrftuh Hx Patient Social History Tobacco Use?: Yes Tobacco type used: Cigarettes Smoking Status: Current Everyday Smoker Use of E-Cig and/or Vaping dev: No Substance use?: No Alcohol Use?: No Pt feels they are or have been: No Immunizations Up To Date Tetanus Booster (TDap): Unknown Influenza Vaccine Up-to-Date: No; Not Current First/Initial COVID19 Vaccinat: NOVEMBER 2020 Second COVID19 Vaccination Jose: DECEMBER 2020 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: [employer] Seasonal Allergies Seasonal Allergies: No Past Medical History Surgery/Hospitalization HX: STAGE 4 BRAIN CANCER Surgeries: Yes (LEFT SHOULDER X 1, RIGHT SHOULDER X2; RIGHT KNEE X2; CARDIOVERSION, 2 STENT) Cardiac, Coronary Stent, Neurological, Orthopedic, Tonsillectomy Respiratory: Yes (CHRONIC DYSPNEA ON EXERTION; SMOKES 1 PPD) Sleep Apnea, COPD Cardiac: Yes (MULTIPLE STENTS; NSTEMI 04/30/17;SVT;AFIB-FLUTTER;CAROTID DISEASE) Atrial Fibrillation, Coronary Artery Disease, Heart Attack, High Cholesterol, Hypertension, Irregular Heartbeat Neurological: Yes (DIPLOPIA/DECREASED VISION R EYE;GAIT DISTURBANCE;INTRACR ANIAL BLEED/MASS) Brain Tumor, Headaches /Migraines Reproductive Disorders: No Sexually Transmitted Disease: No HIV/AIDS: No Genitourinary: Yes Kidney Stones Gastrointestinal: Yes Gastroesophageal Reflux Musculoskeletal: Yes ( FX HAND; BILATERAL ROTATOR CUFF SURGERIES;RIGHT KNEE REPLACEMENT;SCIATICA;) Chronic Back Pain, Fractures Endocrine: Yes (OBESITY) Diabetes, Non-Insulin dep HEENT: Yes (DIPLOPIA; DECREASED VISION RIGHT EYE; ) Cancer: Yes Brain Did You Recieve Any Treatments: Yes What Type of Treatment Did You: Chemotherapy, Radiation, Surgical Intervention Psychosocial: No Sleep Difficulties Integumentary: Yes (PIGMENT DISORDER) Blood Disorders: No Family Medical History Reviewed Nursing Family Hx Cardiovascular disease 19 FATHER Diabetes mellitus 19 MOTHER FH: lung cancer G8 SISTER Myocardial infarction 19 FATHER No Pertinent Family Hx Physical Exam Vital Signs - First Documented 10/10/21 14:48 Pulse 77 Resp 16 B/P (MAP) 122/84 (97) Pulse Ox 98 O2 Delivery Room Air Capillary Refill : Less Than 3 Seconds Height: 5'9.00" Weight: 209lbs. 3.2oz. [id number]; 21.00 BMI Method:Stated General Appearance: WD/WN, cachetic HEENT: PERRL/EOMI, normal ENT inspection, TMs normal, pharynx normal, other (Maxillary sinus tenderness bilaterally, nares patent.) Neck: non-tender, full range of motion, supple, normal inspection Respiratory: chest non-tender, lungs clear, normal breath sounds Cardiovascular: normal peripheral pulses, regular rate, rhythm Gastrointestinal: normal bowel sounds, non tender, soft Neurologic/Psychiatric: no motor/sensory deficits, alert, normal mood/affect, oriented x 3 Skin: warm/dry, pallor Progress/Results/Core Measures Suspected Sepsis SIRS Temperature: Pulse: 77 Respiratory Rate: 16 Blood Pressure 122 /84 Mean: 97 Results/Orders Vital Signs/I&O 10/10/21 10/10/21 14:48 15:56 Pulse 77 77 Resp 16 18 B/P (MAP) 122/84 (97) 120/80 Pulse Ox 98 O2 Delivery Room Air Capillary Refill : Less Than 3 Seconds Blood Pressure Mean: 97 Departure Impression Primary Impression: Sinusitis Qualified Codes: J01.00 - Acute maxillary sinusitis, unspecified Disposition: 01 HOME, SELF-CARE Condition: Improved Departure-Patient Inst. Decision time for Depature: 15:30 Referrals: DUNIA SANTOS MD (PCP/Family) Primary Care Physician Patient Instructions: Sinusitis, Adult (DC) Add. Discharge Instructions: Use Afrin nasal spray for 3 to 4 days then discontinue Take doxycycline as prescribed. Follow-up with Dr. Santos if symptoms are not improving or worsen. Use saline nasal mist as needed, you can try a [place] pot or nasal rinse bottle. Keep your scheduled MRI per Dr. Palacios. Alternate Tylenol 650 mg and ibuprofen 600 mg every 4 hours as needed for pressure or pain in the sinuses. Return to the emergency department for new, urgent healthcare needs. All discharge instructions reviewed with patient and/or family. Voiced understanding. Scripts Doxycycline Hyclate (Doxycycline Hyclate) 100 Mg Tablet 100 MG PO BID, #14 TAB 0 Refills Prov: MICHELLE BHAGAT 10/10/21 Copy Copies To 1: DUNIA SANTOS MD Copies To 2: TRICIA ARTEAGA AMY ARNP Oct 10, 2021 15:52
[2021-10-10 15:56] VITALS: BP 120/80
== END 2021-10-10 15:57 | disposition home or self-care (01) ==
LOC: EDUNIT# 13:51 → ER 13:52
DX: J32.9 Chronic sinusitis, unspecified (principal); G47.30 Sleep apnea, unspecified; J44.9 Chronic obstructive pulmonary disease, unspecified; I25.2 Old myocardial infarction; I10 Essential (primary) hypertension; I48.91 Unspecified atrial fibrillation; I25.10 Atherosclerotic heart disease of native coronary artery without angina pectoris; E78.00 Pure hypercholesterolemia, unspecified; E66.9 Obesity, unspecified; K21.9 Gastro-esophageal reflux disease without esophagitis; E11.9 Type 2 diabetes mellitus without complications; G89.29 Other chronic pain; M54.9 Dorsalgia, unspecified; F17.210 Nicotine dependence, cigarettes, uncomplicated; Z68.21 Body mass index [BMI] 21.0-21.9, adult; Z79.01 Long term (current) use of anticoagulants; Z79.899 Other long term (current) drug therapy; Z79.84 Long term (current) use of oral hypoglycemic drugs; Z79.891 Long term (current) use of opiate analgesic
CPT/HCPCS: 99282

== ENCOUNTER → 2021-10-14 | Outpatient (CLI) | payer MEDICARE, MEDICAID ==
[~2021-10-14] MED LIST changes: +DOXY100T2 PO; +GADOTERATE 0.5 MMOL/ML (CLARISCAN) 20 ML VIAL IV ONE; +[UNRECOGNIZED DRUG - CODE] BC
--- NOTE | 2021-10-14 11:29 | Diagnostic Imaging Report ---
PROCEDURE: MR imaging of the brain with and without contrast. TECHNIQUE: Multiplanar, multisequence MR imaging of the brain was performed with and without contrast. INDICATION: Glioblastoma. FINDINGS: The previous MRI brain exam of 07/22/2021 noted an enhancing poorly defined mass primarily involving the left parietal lobe but with some extension into the left temporal and occipital lobes as well. This mass had increased in size since the prior exam of 04/29/2021, and at the time of the previous study, the mass measured 3.1 x 4.7 x 3.6 cm in maximum transverse, AP, and longitudinal dimensions. On this study, there has been a further increase in the size of the mass. The mass is now estimated to be 3.8 x 6.6 x 5.2 cm. Furthermore, in the interval since the prior exam, generalized enhancement of the splenium of the corpus callosum has developed. This area of enhancement measures 3.7 x 3.7 x 2.0 cm. This finding should be considered neoplastic until proven otherwise. The T1 series also shows vague areas of increased signal within the left parietal lobe as well as a focal 1.1 x 1.2 cm area of increased signal in the left temporal lobe. These findings may be related to hemorrhagic transformation. It would be less likely that these are secondary to seth parenchymal hemorrhage. There is associated vasogenic edema, and there is now approximately 3.8 mm of shift of the midline to the right. The overall appearance of the brain has not changed significantly otherwise. No new abnormality has developed aside from the development of a 2 cm retention cyst in the floor of the right maxillary antrum and a 1 cm retention cyst in the floor of the left maxillary antrum. IMPRESSION: 1. The appearance of the brain has worsened since the prior study as the enhancing mass primarily centered in the left parietal lobe has increased in size. There is also now a new diffusely enhancing mass involving much of the splenium of the corpus callosum. This too should be considered neoplastic in nature. 2. The areas of increased signal in the left parietal lobe and left temporal lobe on the T1 series may be secondary to hemorrhagic transformation as opposed to acute parenchymal hemorrhages. If further study is desired, then CT of the head would be recommended. 3. There is greater associated vasogenic edema than on the prior exam, and there is now 3.8 mm shift of the midline. 4. These results were called to Paty at the Cancer [facility] at the time of this dictation. Dictated by: Dictated on workstation # [id number]
== END ==
LOC: RAD 09:30
PROVIDERS: ATTEND Nurse Practitioner Adult Health
DX: C71.3 Malignant neoplasm of parietal lobe (principal)
CPT/HCPCS: 70553

== ENCOUNTER 2021-10-17 07:05 | Emergency (ER) | payer MEDICARE, MEDICAID ==
[~2021-10-17] VITALS: Ht 170 cm; Wt 61.0 kg
[~2021-10-17 07:05] MED LIST changes: -GADOTERATE 0.5 MMOL/ML (CLARISCAN) 20 ML VIAL IV ONE; -[UNRECOGNIZED DRUG - CODE] BC
[2021-10-17 07:25] VITALS: BP 122/75
--- NOTE | 2021-10-17 08:27 | ED EENT ---
History of Present Illness General Chief Complaint: Cough/Cold/Flu Symptoms Stated Complaint: CONGESTION Nursing Triage Note: ARRIVED VIA AMB TO ROOM 08 WITH CONTINUING CONGESTION. HAS SEEN HIS DR AND HAS BEEN HERE. HAS BEEN TESTED NEG MULTIPLE TIMES FOR COVID. Source: patient Exam Limitations: no limitations History of Present Illness Date Seen by Provider: Oct 17, 2021 Time Seen by Provider: 07:59 Initial Comments Patient to the ER by private conveyance with his daughter and chief complaint of after completing a course of doxycycline for maxillary sinusitis his symptoms of sinusitis are better but now he is having pain congestion and feels like he is got something in the back of his throat that he cannot cough up. He is on chemotherapy for stage IV glioblastoma. He had 1 dose of doxycycline left and has been using Claritin. He can breathe out of his nose and feels much better. He is not having any fevers or chills. No nausea vomiting diarrhea dysuria. No difficulty swallowing fluids. No problems with producing saliva. He has not been on steroids recently Allergies and Home Medications Allergies Coded Allergies: bee pollen (Unverified Allergy, Mild, 02/17/21) ketamine (Verified Allergy, Unknown, 02/17/21) warfarin (Verified Allergy, Unknown, 02/17/21) Patient Home Medication List Home Medication List Reviewed: Yes Albuterol Sulfate (Proair Hfa) 1 Puff Puff, 2 PUFF IH Q4H, (Reported) Entered as Reported by: CARLOS ENCARNACION on 02/14/21 1507 Apixaban (Eliquis) 5 Mg Tablet, 5 MG PO BID, (Reported) Entered as Reported by: ЕКАТЕРИНА HU on 05/01/17 0902 Atorvastatin Calcium (Lipitor) 80 Mg Tablet, 80 MG PO HS, (Reported) Entered as Reported by: FRITZ WILKINSON on 05/21/18 0944 Budesonide/Formoterol Fumarate (Symbicort 160-4.5 Mcg Inhaler) 10.2 Gm Hfa.aer.ad, 2 PUFF IH BID, (Reported) Entered as Reported by: SIDNEY GREEN on 08/03/16 193 Chlorpromazine HCl (Chlorpromazine HCl) 10 Mg Tablet, 10 MG PO DAILY PRN for HICCUPS, (Reported) Entered as Reported by: CARLOS ENCARNACION on 02/14/21 1507 Diazepam (Diazepam) 5 Mg Tablet, 5 MG PO HS, (Reported) Entered as Reported by: CARLOS ENCARNACION on 02/14/21 150 Diltiazem HCl (Cardizem) 120 Mg Tablet, 240 MG PO DAILY, (Reported) Entered as Reported by: CARLOS ENCARNACION on 02/14/21 1507 Doxycycline Hyclate (Doxycycline Hyclate) 100 Mg Tablet, 100 MG PO BID Prescribed by: MICHELLE BHAGAT on 10/10/21 1551 Famotidine (Pepcid) 40 Mg Tablet, 40 MG PO DAILY, (Reported) Entered as Reported by: CARLOS ENCARNACION on 02/14/21 150 Metformin HCl (Metformin HCl) 1,000 Mg Tablet, 1,000 MG PO BID, (Reported) Entered as Reported by: CARLOS ENCARNACION on 02/14/21 150 Metoprolol Succinate (Metoprolol Succinate) 50 Mg Tab.er.24h, 50 MG PO DAILY, (Reported) Entered as Reported by: FRITZ WILKINSON on 12/16/18 1411 Nitroglycerin (Nitroglycerin) 0.4 Mg Tab.subl, 0.4 MG SL UD PRN for CHEST PAIN, (Reported) Entered as Reported by: LEXUS LOPEZ on 09/02/19 0805 Ondansetron (Ondansetron Odt) 8 Mg Tab.rapdis, 8 MG PO Q4H PRN for NAUSEA-1ST LINE, (Reported) Entered as Reported by: CARLOS ENCARNACION on 02/14/21 150 Oxycodone HCl (Oxycodone HCl) 5 Mg Tablet, 10 MG PO Q6H PRN for PAIN, (Reported) Entered as Reported by: CARLOS ENCARNACION on 02/14/21 150 Zolpidem Tartrate (Ambien) 10 Mg Tablet, 10 MG PO HS, (Reported) Entered as Reported by: CARLOS ENCARNACION on 02/14/21 150 Review of Systems Review of Systems Constitutional: No chills, No diaphoresis Eyes: Denies Blindness, Denies Drainage Ears: Denies Dizziness, Denies Pain Nose: denies clots, denies congestion Mouth: denies clots, denies pain, denies swelling Throat: denies pain, denies swelling Respiratory: No cough, No short of breath Cardiovascular: No edema, No palpitations Gastrointestinal: No abdominal pain, No nausea, No vomiting All Other Systems Reviewed Negative Unless Noted: Yes Past Vjqhupx-Axrivu-Wcphil Hx Patient Social History Tobacco Use?: No Smoking Status: Current Everyday Smoker Alcohol Use?: No Pt feels they are or have been: No Immunizations Up To Date Tetanus Booster (TDap): Unknown First/Initial COVID19 Vaccinat: NOVEMBER 2020 Second COVID19 Vaccination Jose: DECEMBER 2020 COVID19 Vaccine Insights Manager: UNKNOWN Seasonal Allergies Seasonal Allergies: No Past Medical History Surgery/Hospitalization HX: STAGE 4 BRAIN CANCER Surgeries: Yes (LEFT SHOULDER X 1, RIGHT SHOULDER X2; RIGHT KNEE X2; CARDIOVERSION, 2 STENT) Cardiac, Coronary Stent, Neurological, Orthopedic, Tonsillectomy Respiratory: Yes (CHRONIC DYSPNEA ON EXERTION; SMOKES 1 PPD) Sleep Apnea, COPD Cardiac: Yes (MULTIPLE STENTS; NSTEMI 04/30/17;SVT;AFIB-FLUTTER;CAROTID DISEASE) Atrial Fibrillation, Coronary Artery Disease, Heart Attack, High Cholesterol, Hypertension, Irregular Heartbeat Neurological: Yes (DIPLOPIA/DECREASED VISION R EYE;GAIT DISTURBANCE;INTRACRANIAL BLEED/MASS) Brain Tumor, Headaches /Migraines Reproductive Disorders: No Sexually Transmitted Disease: No HIV/AIDS: No Genitourinary: Yes Kidney Stones Gastrointestinal: Yes Gastroesophageal Reflux Musculoskeletal: Yes ( FX HAND; BILATERAL ROTATOR CUFF SURGERIES;RIGHT KNEE REPLACEMENT;SCIATICA;) Chronic Back Pain, Fractures Endocrine: Yes (OBESITY) Diabetes, Non-Insulin dep HEENT: Yes (DIPLOPIA; DECREASED VISION RIGHT EYE; ) Cancer: Yes Brain Did You Recieve Any Treatments: Yes What Type of Treatment Did You: Chemotherapy, Radiation, Surgical Intervention Psychosocial: No Sleep Difficulties Integumentary: Yes (PIGMENT DISORDER) Blood Disorders: No Family Medical History Cardiovascular disease 19 FATHER Diabetes mellitus 19 MOTHER FH: lung cancer G8 SISTER Myocardial infarction 19 FATHER No Pertinent Family Hx Physical Exam Vital Signs Vital Signs - First Documented 10/17/21 07:25 Temp 36.9 Pulse 87 Resp 16 B/P (MAP) 122/75 (91) Pulse Ox 98 O2 Delivery Room Air Height, Weight, BMI Height: 5'9.00" Weight: 209lbs. 3.2oz. 94.273162ib; 21.00 BMI Method:Stated General Appearance: WD/WN, no apparent distress Eyes: bilateral eye normal inspection, bilateral eye PERRL, bilateral eye EOMI Ears: bilateral ear auricle normal, bilateral ear canal normal, bilateral ear TM normal Nose: normal inspection, active bleeding Mouth/Throat: pharynx normal (Without erythema or swollen silo adenitis/sialolithiasis or tenderness. Tongue is not protruding. There are white lacy plaques on the back of the throat and upper esophagus noted.) Neck: full range of motion, supple Cardiovascular: normal peripheral pulses, regular rate, rhythm Respiratory: lungs clear, normal breath sounds, no respiratory distress, no accessory muscle use Progress/Results/Core Measures Results/Orders Micro Results Microbiology 10/17/21 JASON Preparation - Final, Complete My Orders Orders - JEN WHITE Jason Prep (10/17/21 08:19) Vital Signs/I&O 10/17/21 07:25 Temp 36.9 Pulse 87 Resp 16 B/P (MAP) 122/75 (91) Pulse Ox 98 O2 Delivery Room Air Blood Pressure Mean: 91 Progress Progress Note : Time: 08:30 Progress Note JASON prep looking for thrush. Because of his immunocompromise we will try put him on miconazole troches Departure Impression Primary Impression: Thrush of mouth and esophagus Disposition: HOME, SELF-CARE Condition: Stable Departure-Patient Inst. Decision time for Depature: 09:22 Referrals: DUNIA SANTOS MD (PCP/Family) Primary Care Physician Patient Instructions: Thrush (DC) Add. Discharge Instructions: Place 1 tablet of miconazole behind your canine tooth in the upper portion of your mouth and allow to dissolve and swallow the secretions. Do this daily for 10 days. Follow-up with your primary care provider or your oncologist if you are not seeing some results in the next week. All discharge instructions reviewed with patient and/or family. Voiced understanding. Scripts Miconazole (Oravig) 50 Mg Ma.buc.tab 50 MG BC DAILY for 10 Days, #10 EA 0 Refills Prov: JEN WHITE 10/17/21 JEN WHITE Oct 17, 2021 08:27
[2021-10-17] MEDS ORDERED: [UNRECOGNIZED DRUG - CODE] BC (09:25)
== END 2021-10-17 09:40 | disposition home or self-care (01) ==
LOC: EDUNIT# 07:05 → ER 07:06
DX: B37.81 Candidal esophagitis (principal); B37.0 Candidal stomatitis; I10 Essential (primary) hypertension; I25.10 Atherosclerotic heart disease of native coronary artery without angina pectoris; I25.2 Old myocardial infarction; I48.92 Unspecified atrial flutter; E11.9 Type 2 diabetes mellitus without complications; E78.00 Pure hypercholesterolemia, unspecified; G89.29 Other chronic pain; M54.9 Dorsalgia, unspecified; K21.9 Gastro-esophageal reflux disease without esophagitis; G47.9 Sleep disorder, unspecified; E66.9 Obesity, unspecified; J44.9 Chronic obstructive pulmonary disease, unspecified; F17.200 Nicotine dependence, unspecified, uncomplicated; Z85.841 Personal history of malignant neoplasm of brain; Z95.5 Presence of coronary angioplasty implant and graft; Z95.810 Presence of automatic (implantable) cardiac defibrillator; Z88.8 Allergy status to other drugs, medicaments and biological substances; Z79.01 Long term (current) use of anticoagulants; Z79.51 Long term (current) use of inhaled steroids; Z79.84 Long term (current) use of oral hypoglycemic drugs; Z79.899 Other long term (current) drug therapy
CPT/HCPCS: 87220; 99281

== ENCOUNTER 2021-10-27 18:05 | Emergency (ER) | payer MEDICARE, MEDICAID ==
[~2021-10-27] VITALS: Ht 175 cm; Wt 68.0 kg
[~2021-10-27 18:05] MED LIST changes: +[UNRECOGNIZED DRUG - CODE] BC
--- NOTE | 2021-10-27 18:18 | ED General ---
General Stated Complaint: FALL Source of Information: Patient Exam Limitations: No Limitations (MARKUS GONZALEZ APRN) History of Present Illness Date Seen by Provider: Oct 27, 2021 Time Seen by Provider: 18:18 Initial Comments To ER by EMS with reports that he fell at [facility]. He is over there with a diagnosis of glioblastoma and functional decline secondary to that. He just got there a few days ago and has had several falls prior to being there and one fall this evening. He is on oral Eliquis for history of atrial fibrillation. Timing/Duration: 1-2 Days Severity: Moderate Associated Systoms: Cough (MARKUS GONZALEZ APRN) Allergies and Home Medications Allergies Coded Allergies: bee pollen (Unverified Allergy, Mild, 02/17/21) ketamine (Verified Allergy, Unknown, 02/17/21) warfarin (Verified Allergy, Unknown, 02/17/21) Patient Home Medication List Home Medication List Reviewed: Yes (MARKUS GONZALEZ APRN) Albuterol Sulfate (Proair Hfa) 1 Puff Puff, 2 PUFF IH Q4H, (Reported) Entered as Reported by: CARLOS ENCARNACION on 02/14/21 150 Apixaban (Eliquis) 5 Mg Tablet, 5 MG PO BID, (Reported) Entered as Reported by: ЕКАТЕРИНА HU on 05/01/17 0902 Atorvastatin Calcium (Lipitor) 80 Mg Tablet, 80 MG PO HS, (Reported) Entered as Reported by: FRITZ WILKINSON on 05/21/18 0944 Budesonide/Formoterol Fumarate (Symbicort 160-4.5 Mcg Inhaler) 10.2 Gm Hfa.aer.ad, 2 PUFF IH BID, (Reported) Entered as Reported by: SIDNEY GREEN on 08/03/16 193 Chlorpromazine HCl (Chlorpromazine HCl) 10 Mg Tablet, 10 MG PO DAILY PRN for HICCUPS, (Reported) Entered as Reported by: CARLOS ENCARNACION on 02/14/21 150 Diazepam (Diazepam) 5 Mg Tablet, 5 MG PO HS, (Reported) Entered as Reported by: CARLOS ENCARNACION on 02/14/21 150 Diltiazem HCl (Cardizem) 120 Mg Tablet, 240 MG PO DAILY, (Reported) Entered as Reported by: CARLOS ENCARNACION on 02/14/21 1507 Doxycycline Hyclate (Doxycycline Hyclate) 100 Mg Tablet, 100 MG PO BID Prescribed by: MICHELLE BHAGAT on 10/10/21 1551 Famotidine (Pepcid) 40 Mg Tablet, 40 MG PO DAILY, (Reported) Entered as Reported by: CARLOS ENCARNACION on 02/14/21 1507 Metformin HCl (Metformin HCl) 1,000 Mg Tablet, 1,000 MG PO BID, (Reported) Entered as Reported by: ACRLOS ENCARNACION on 02/14/21 1507 Metoprolol Succinate (Metoprolol Succinate) 50 Mg Tab.er.24h, 50 MG PO DAILY, (Reported) Entered as Reported by: FRITZ WILKINSON on 12/16/18 1411 Miconazole (Oravig) 50 Mg Ma.buc.tab, 50 MG BC DAILY Prescribed by: JEN WHITE on 10/17/21 0925 Nitroglycerin (Nitroglycerin) 0.4 Mg Tab.subl, 0.4 MG SL UD PRN for CHEST PAIN, (Reported) Entered as Reported by: LEXUS LOPEZ on 09/02/19 0805 Ondansetron (Ondansetron Odt) 8 Mg Tab.rapdis, 8 MG PO Q4H PRN for NAUSEA-1ST LINE, (Reported) Entered as Reported by: CARLOS ENCARNACION on 02/14/21 150 Oxycodone HCl (Oxycodone HCl) 5 Mg Tablet, 10 MG PO Q6H PRN for PAIN, (Reported) Entered as Reported by: CARLOS ENCARNACION on 02/14/21 150 Zolpidem Tartrate (Ambien) 10 Mg Tablet, 10 MG PO HS, (Reported) Entered as Reported by: CARLOS ENCARNACION on 02/14/21 150 Review of Systems Review of Systems Constitutional: see HPI EENTM: see HPI Respiratory: no symptoms reported Cardiovascular: no symptoms reported Genitourinary: no symptoms reported Musculoskeletal: no symptoms reported Skin: no symptoms reported Psychiatric/Neurological: No Symptoms Reported Hematologic/Lymphatic: No Symptoms Reported Immunological/Allergic: no symptoms reported (MARKUS GONZALEZ APRN) Past Nluaxkw-Hwaeno-Iluvyo Hx Immunizations Up To Date Tetanus Booster (TDap): Unknown First/Initial COVID19 Vaccinat: NOVEMBER 2020 Second COVID19 Vaccination Jose: DECEMBER 2020 (MARKUS GONZALEZ APRN) Seasonal Allergies Seasonal Allergies: No (MARKUS GONZALEZ APRN) Past Medical History Surgery/Hospitalization HX: STAGE 4 BRAIN CANCER Surgeries: Yes (LEFT SHOULDER X 1, RIGHT SHOULDER X2; RIGHT KNEE X2; CARDIOVERSION, 2 STENT) Cardiac, Coronary Stent, Neurological, Orthopedic, Tonsillectomy Respiratory: Yes (CHRONIC DYSPNEA ON EXERTION; SMOKES 1 PPD) Sleep Apnea, COPD Cardiac: Yes (MULTIPLE STENTS; NSTEMI 04/30/17;SVT;AFIB-FLUTTER;CAROTID DISEASE) Atrial Fibrillation, Coronary Artery Disease, Heart Attack, High Cholesterol, Hypertension, Irregular Heartbeat Neurological: Yes (DIPLOPIA/DECREASED VISION R EYE;GAIT DISTURBANCE;INTRACRANIAL BLEED/MASS) Brain Tumor, Headaches /Migraines Reproductive Disorders: No Sexually Transmitted Disease: No HIV/AIDS: No Genitourinary: Yes Kidney Stones Gastrointestinal: Yes Gastroesophageal Reflux Musculoskeletal: Yes ( FX HAND; BILATERAL ROTATOR CUFF SURGERIES;RIGHT KNEE REPLACEMENT;SCIATICA;) Chronic Back Pain, Fractures Endocrine: Yes (OBESITY) Diabetes, Non-Insulin dep HEENT: Yes (DIPLOPIA; DECREASED VISION RIGHT EYE; ) Cancer: Yes Brain Did You Recieve Any Treatments: Yes What Type of Treatment Did You: Chemotherapy, Radiation, Surgical Intervention Psychosocial: No Sleep Difficulties Integumentary: Yes (PIGMENT DISORDER) Blood Disorders: No (MARKUS GONZALEZ APRN) Family Medical History Cardiovascular disease 19 FATHER Diabetes mellitus 19 MOTHER FH: lung cancer G8 SISTER Myocardial infarction 19 FATHER No Pertinent Family Hx (MARKUS GONZALEZ APRN) Physical Exam Vital Signs Vital Signs - First Documented 10/27/21 10/27/21 18:05 20:30 Temp 36.2 Pulse 56 Resp 12 B/P (MAP) 129/76 (93) Pulse Ox 94 O2 Delivery Room Air (STEFFANIE PINTO MD) Vital Signs Capillary Refill : (MARKUS GONZALEZ APRN) Height, Weight, BMI Height: 5'9.00" Weight: 209lbs. 3.2oz. 94.594317ko; 21.00 BMI Method:Stated General Appearance: No Apparent Distress, WD/WN Eyes: Bilateral Eye Normal Inspection, Bilateral Eye PERRL HEENT: PERRL/EOMI, TMs Normal Neck: Full Range of Motion, Normal Inspection Respiratory: No Accessory Muscle Use, No Respiratory Distress Cardiovascular: Regular Rate, Rhythm, Normal Peripheral Pulses Gastrointestinal: Normal Bowel Sounds, Non Tender, Soft Extremity: Normal Capillary Refill, Normal Inspection Neurologic/Psychiatric: Alert, No Motor/Sensory Deficits, Other (alert has word finding troubles though. moves all extremities. ) Skin: Normal Color, Warm/Dry (MARKUS GONZALEZ APRN) Progress/Results/Core Measures Suspected Sepsis SIRS Temperature: Pulse: Respiratory Rate: Blood Pressure / Mean: (MARKUS GONZALEZ APRN) Results/Orders Lab Results Laboratory Tests Test 10/27/21 20:00 Range/Units White Blood Count 8.4 4.3-11.0 10^3/uL Red Blood Count 4.65 4.30-5.52 10^6/uL Hemoglobin 14.0 13.3-17.7 g/dL Hematocrit 42 40-54 % Mean Corpuscular Volume 91 80-99 fL Mean Corpuscular Hemoglobin 30 25-34 pg Mean Corpuscular Hemoglobin Concent 33 32-36 g/dL Red Cell Distribution Width 15.7 H 10.0-14.5 % Platelet Count 212 130-400 10^3/uL Mean Platelet Volume 10.2 9.0-12.2 fL Immature Granulocyte % (Auto) 1 % Neutrophils (%) (Auto) 81 H 42-75 % Lymphocytes (%) (Auto) 11 L 12-44 % Monocytes (%) (Auto) 7 0-12 % Eosinophils (%) (Auto) 0 0-10 % Basophils (%) (Auto) 0 0-10 % Neutrophils # (Auto) 6.8 1.8-7.8 10^3/uL Lymphocytes # (Auto) 0.9 L 1.0-4.0 10^3/uL Monocytes # (Auto) 0.6 0.0-1.0 10^3/uL Eosinophils # (Auto) 0.0 0.0-0.3 10^3/uL Basophils # (Auto) 0.0 0.0-0.1 10^3/uL Immature Granulocyte # (Auto) 0.0 0.0-0.1 10^3/uL Prothrombin Time 14.0 12.2-14.7 SEC INR Comment 1.0 0.8-1.4 Activated Partial Thromboplast Time 34 24-35 SEC Sodium Level 139 135-145 MMOL/L Potassium Level 4.4 3.6-5.0 MMOL/L Chloride Level 104 98-107 MMOL/L Carbon Dioxide Level 24 21-32 MMOL/L Anion Gap 11 5-14 MMOL/L Blood Urea Nitrogen 28 H 7-18 MG/DL Creatinine 0.75 0.60-1.30 MG/DL Estimat Glomerular Filtration Rate 107 BUN/Creatinine Ratio 37 Glucose Level 141 H 70-105 MG/DL Calcium Level 9.1 8.5-10.1 MG/DL Corrected Calcium 9.6 8.5-10.1 MG/DL Total Bilirubin 0.4 0.1-1.0 MG/DL Aspartate Amino Transf (AST/SGOT) 37 H 5-34 U/L Alanine Aminotransferase (ALT/SGPT) 25 0-55 U/L Alkaline Phosphatase 63 40-136 U/L Total Protein 6.7 6.4-8.2 GM/DL Albumin 3.4 3.2-4.5 GM/DL (STEFFANIE PINTO MD) Medications Given in ED Current Medications Medications Dose Ordered Sig/Juan Miguel Route Start Time Stop Time Status Last Admin Dose Admin Prothrombin Complex Concent (Human) 2,000 unit ONCE ONCE IV 10/27/21 19:45 10/27/21 19:46 DC 10/27/21 20:13 2,000 UNIT (STEFFANIE PINTO MD) Vital Signs/I&O 10/27/21 10/27/21 10/27/21 18:05 18:05 20:30 Temp 36.2 36.2 Pulse 56 56 56 Resp 12 12 14 B/P (MAP) 129/76 (93) 129/76 (93) 115/70 Pulse Ox 94 94 O2 Delivery Room Air (STEFFANIE PINTO MD) Vital Signs/I&O Capillary Refill : (MARKUS GONZALEZ APRN) Departure Communication (Admissions) Family Conversation 1944-I have spoken with Dr. Palumbo from neurosurgery service at [facility]. With the Eliquis use he would like to have the patient given Kcentra and they will accept the patient in transfer. I will order 2000 mg IV x1. 2000-just received a phone call from [facility] hospice. They tell us that the patient is on hospice. This was not made known to us prior to this point including during prior phone call with daughter. Kcentra has been mixed and is just now being hung at time of phone call with daughter. 2005-I have spoken with the patient's daughter Dilia who confirmed that he is on hospice and she is okay with him going back to the [facility] to continue hospice care instead of going to the [facility]. I also called [facility] transfer center to let them know of this. We will cancel the transfer. NAME: SAMINA RIOS MED REC#: [id number] PT STATUS: REG ER : 1965 PHYSICIAN: MARKUS GONZALEZ APRN ADMIT DATE: 10/27/21/ER Signed Date of Exam:10/27/21 CT HEAD/CERVICAL SPINE WO PROCEDURE: CT head and CT cervical spine without contrast. TECHNIQUE: Multiple contiguous axial images were obtained through the brain and cervical spine without the use of intravenous contrast. Sagittal and coronal reformations through the cervical spine were then performed. Auto Exposure Controls were utilized during the CT exam to meet ALARA standards for radiation dose reduction. DATE: October 27, 2021. COMPARISON: MRI brain October 14, 2021. INDICATION: 56-year-old male, history of glioblastoma multiforme. Fall. Head and neck pain. FINDINGS: There is a heterogeneous attenuation mass in the left cerebral hemisphere with prominent associated mass effect. There is left to right midline shift at the level of the septum pellucidum measuring up to approximately 5.4 mm. On prior MRI brain of October 14, 2021, this previously measured approximately 4.3 mm. There is a hyperdense focus in the left cerebral hemisphere on axial image 28 which is new since PET/CT on November 17, 2019. This potentially could relate to a small focus of hemorrhage. There are additional smaller foci of hyperdensity also present in the left cerebral hemisphere with adjacent abnormal low-attenuation. These also potentially could relate to facet hemorrhage in the areas of high attenuation. There is no hydrocephalus. There are left-sided craniotomy changes. There is no identified facet joint subluxation or dislocation. There is no asymmetric widening of the cervical disc spaces. There are multilevel disc degenerative changes of the cervical spine. There is mild disc height loss at C6-C7. There is no identified acute fracture of the cervical spine. The visualized portions of the lung apices are clear. There is a cervical levocurvature. IMPRESSION: 1. Heterogeneous attenuation mass in the left cerebral hemisphere with associated mass effect and 5.4 mm left to right midline shift at the level of the septum pellucidum which is mildly increased since October 14, 2021 MRI. There are foci of high attenuation within the mass which likely reflect areas of acute hemorrhage. 2. No identified acute abnormality of the cervical spine. Dictated by: Dictated on workstation # [id number] Dict: 10/27/211858 Trans: 10/27/211916 [facility] [phone] Interpreted by: ALEXIS HILARIO MD Electronically signed by: ALEXIS HILARIO MD 10/27/211916 (MARKUS GONZALEZ APRN) Impression Primary Impression: ICH (intracerebral hemorrhage) Additional Impression: GBM (glioblastoma multiforme) Disposition: 01 HOME, SELF-CARE Condition: Stable Departure-Patient Inst. Decision time for Depature: 20:20 (MARKUS GONZALEZ APRN) Referrals: DUNIA SANTOS MD (PCP/Family) Primary Care Physician Patient Instructions: Intracerebral Hemorrhage, Glioblastoma ATTENDING PHYSICIAN NOTE: I was physically present as attending physician in the emergency department during the care of this patient, but I was not directly involved in the decision making or delivery of care for this patient. (STEFFANIE PINTO MD) Copy Copies To 1: DUNIA SANTOS MD, PETER J APRN Oct 27, 2021 18:18 STEFFANIE PINTO MD Oct 28, 2021 03:09
--- NOTE | 2021-10-27 19:18 | Diagnostic Imaging Report ---
PROCEDURE: CT head and CT cervical spine without contrast. TECHNIQUE: Multiple contiguous axial images were obtained through the brain and cervical spine without the use of intravenous contrast. Sagittal and coronal reformations through the cervical spine were then performed. Auto Exposure Controls were utilized during the CT exam to meet ALARA standards for radiation dose reduction. DATE: October 27, 2021. COMPARISON: MRI brain October 14, 2021. INDICATION: 56-year-old male, history of glioblastoma multiforme. Fall. Head and neck pain. FINDINGS: There is a heterogeneous attenuation mass in the left cerebral hemisphere with prominent associated mass effect. There is left to right midline shift at the level of the septum pellucidum measuring up to approximately 5.4 mm. On prior MRI brain of October 14, 2021, this previously measured approximately 4.3 mm. There is a hyperdense focus in the left cerebral hemisphere on axial image 28 which is new since PET/CT on November 17, 2019. This potentially could relate to a small focus of hemorrhage. There are additional smaller foci of hyperdensity also present in the left cerebral hemisphere with adjacent abnormal low-attenuation. These also potentially could relate to facet hemorrhage in the areas of high attenuation. There is no hydrocephalus. There are left-sided craniotomy changes. There is no identified facet joint subluxation or dislocation. There is no asymmetric widening of the cervical disc spaces. There are multilevel disc degenerative changes of the cervical spine. There is mild disc height loss at C6-C7. There is no identified acute fracture of the cervical spine. The visualized portions of the lung apices are clear. There is a cervical levocurvature. IMPRESSION: 1. Heterogeneous attenuation mass in the left cerebral hemisphere with associated mass effect and 5.4 mm left to right midline shift at the level of the septum pellucidum which is mildly increased since October 14, 2021 MRI. There are foci of high attenuation within the mass which likely reflect areas of acute hemorrhage. 2. No identified acute abnormality of the cervical spine. Dictated by: Dictated on workstation # [id number]
[2021-10-27] MEDS ORDERED: HUMAN PROTHROMBIN COMPLX(PCC) 500 UNIT (KCENTRA) IV ONE (19:45)
[2021-10-27 20:30] VITALS: BP 115/70
[2021-10-27 20:34] LABS: BASOPHILS % (AUTO) 0 % (0-10); EOSINOPHILS % (AUTO) 0 % (0-10); HEMATOCRIT 42 % (40-54); LYMPHOCYTES # (AUTO) 0.9 10^3/uL (1.0-4.0); LYMPHOCYTES % (AUTO) 11 % (12-44); MEAN CORPUSCULAR HEMOGLOBIN 30 pg (25-34); MEAN CORPUSCULAR HGB CONC 33 g/dL (32-36); MEAN CORPUSCULAR VOLUME 91 fL (80-99); MEAN PLATELET VOLUME 10.2 fL (9.0-12.2); MONOCYTES # (AUTO) 0.6 10^3/uL (0.0-1.0); MONOCYTES % (AUTO) 7 % (0-12); NEUTROPHILS # (AUTO) 6.8 10^3/uL (1.8-7.8); NEUTROPHILS % (AUTO) 81 % (42-75); PLATELET COUNT 212 10^3/uL (130-400); WHITE BLOOD COUNT 8.4 10^3/uL (4.3-11.0)
[2021-10-27 20:48] LABS: ALBUMIN 3.4 GM/DL (3.2-4.5); BILIRUBIN,TOTAL 0.4 MG/DL (0.1-1.0); CALCIUM 9.1 MG/DL (8.5-10.1); CREATININE SERUM 0.75 MG/DL (0.60-1.30); POTASSIUM 4.4 MMOL/L (3.6-5.0); TOTAL PROTEIN 6.7 GM/DL (6.4-8.2)
== END 2021-10-27 20:30 | disposition home or self-care (01) ==
LOC: EDUNIT# 18:09 → ER 18:10
DX: I61.9 Nontraumatic intracerebral hemorrhage, unspecified (principal); C71.9 Malignant neoplasm of brain, unspecified; G47.30 Sleep apnea, unspecified; J44.9 Chronic obstructive pulmonary disease, unspecified; I25.2 Old myocardial infarction; I10 Essential (primary) hypertension; E78.00 Pure hypercholesterolemia, unspecified; I25.10 Atherosclerotic heart disease of native coronary artery without angina pectoris; K21.9 Gastro-esophageal reflux disease without esophagitis; I48.91 Unspecified atrial fibrillation; E11.9 Type 2 diabetes mellitus without complications; Z79.01 Long term (current) use of anticoagulants; Z79.84 Long term (current) use of oral hypoglycemic drugs; Z79.899 Other long term (current) drug therapy
CPT/HCPCS: 36415; 70450; 72125; 80053; 85025; 85610; 85730